=== PATIENT | female | born 1945 | race Caucasian/White ===

== ENCOUNTER 2019-04-04 21:35 | Emergency (ER) | payer OTHER ==
--- OUTSIDE RECORDS SUMMARY | 2019-04-04 21:38 | XMS REPORT | Clinical Summary ---
:1945 Author Organization [facility] Address [address] [place] [address] Care Team Providers Name Role Phone Juan F Shaffer MD Primary Care Provider Allergies Active Allergy Reactions Severity Noted Date Comments Morphine Other (See Comments) High 04/11/2017 CONFUSION / hallucination Medications Medication Sig Dispensed Refills Start Date End Date Status omeprazole (PRILOSEC) Take 40 mg by 0 Active 40 MG capsule mouth daily. tamsulosin (FLOMAX) 0.4 Take 0.4 mg by 0 Active mg Cp24 24 hr capsule mouth daily. losartan-hydroCHLOROthi Take 1 tablet 0 Active azide (HYZAAR) 50-12.5 by mouth mg per tablet daily. mometasone-formoterol Inhale 2 puffs 0 Active (DULERA) 100-5 by mouth via mcg/actuation inhaler inhaler 2 (two) times daily. oxybutynin Take 5 mg by 0 Active (DITROPAN-XL) 5 MG 24 mouth daily. hr tablet levothyroxine Take 75 mcg by 0 Active (SYNTHROID, LEVOTHROID) mouth daily. 75 MCG tablet cholecalciferol Take 1,000 0 Active (VITAMIN D3) 1,000 unit Units by mouth tablet daily. b complex vitamins Take 1 capsule 0 Active capsule by mouth daily. magnesium 30 mg tablet Take 30 mg by 0 Active mouth 2 (two) times daily. aspirin 81 MG EC tablet Take 81 mg by 0 Active mouth daily. DULoxetine (CYMBALTA) Take 1 capsule 30 tablet 0 04/15/2017 04/15/2018 60 MG capsule (60 mg total) by mouth nightly. 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 Leg pain 04/11/2017 Hypertension 04/11/2017 Hypothyroidism 04/11/2017 OAB (overactive bladder) 04/11/2017 Encounters Date Type Specialty Care Team Description 02/23/2019 Hospital Encounter Radiology Kiran Zuluaga Radiculopathy, cervical; MD Hernando Chronic bilateral low back pain with bilateral sciatica 02/23/2019 Outside Orders Central Scheduling Kiran Zuluaga Cervical radiculopathy, acute (Primary Dx); MD Hern[place] Chronic bilateral low back pain with bilateral sciatica 02/23/2019 Outside Orders Central Scheduling Kiran Zuluaga Radiculopathy, cervical (Primary Dx); MD [place] Chronic bilateral low back pain with bilateral sciatica 10/27/2018 Hospital Encounter Radiology Luke Dang Radiculopathy, cervical; MD Jeremy History of fusion of cervical spine 10/27/2018 Outside Orders Central Scheduling Luke Dang Radiculopathy, cervical (Primary Dx); MD Jeremy History of fusion of cervical spine after 04/03/2018 Social History Tobacco Use Types Packs/Day Years Used Date Former Smoker Smokeless Tobacco: Never Used Comments: younger years Alcohol Use Drinks/Week oz/Week Comments No Sex Assigned at Date Recorded Not on file Job Start Date Occupation Industry Not on file Not on file Not on file Travel History Travel Start Travel End No recent travel history available. Last Filed Vital Signs Not on file Plan of Treatment Not on file Implants Implanted Type Area Septic Cleaner Device Shelf Model / Identifier Expiration Serial / Date Lot Imp Scaffold Lg 2169-3 - [id number] [place] Left: ROTATION 05/27/20182168-12 / Implanted: Qty: 1 on 03/20/2018 by Hamilton Perez MD hroscopy Shoulder MEDICAL / [id number] Sut Tape 1.3mm Ndl Tapr Wht Bl -7499 - [id number] [place] Left: ARTHREX 10/27/2022-7499 / Implanted: Qty: 1 on 03/20/2018 by Hamilton Perez MD hroscopy Shoulder / [id number] [place] Knotless 4.5mm Cm-9145 - [id number] [place]/[employer] Left: [facility] MED CM-9145 / Implanted: Qty: 1 on 03/20/2018 by Hamilton Perez MD hroscopy Shoulder / [id number] [place] 3 Sut Qttro 5.5mm Prld Cm-9255x3 - [id number] [place] Left: [facility] MED 05/16/2022 [id number] / Implanted: Qty: 2 on 03/20/2018 by Hamilton Perez MD hroscopy Shoulder / [id number] [place] Knotless 5.5mm Cm-9155 - [id number] [place] Left: [facility] MED CM-9155 / Implanted: Qty: 1 on 03/20/2018 by Hamilton Perez MD hroscopy Shoulder / [id number] [place] Quattro Knotless 2.9mm Cm-9129 - [id number] [place] Left: [facility] 11/27/2021 CM-9129 / Implanted: Qty: 1 on 03/20/2018 by Hamilton Perez MD hroscopy Shoulder / [id number] [employer] Tendon 2504-1 - [id number] [place] Left: ROTATION 2018 2504-1 / Implanted: Qty: 1 on 03/20/2018 by Hamilton Perez MD hroscopy Shoulder MEDICAL / [id number] [place] Bone W/Del Sys 2503-A - [id number] [place] Left: DUARTE & 2018 2503-A / Implanted: Qty: 1 on 03/20/2018 by Hamilton Perez MD hroscopy Shoulder NEPHEW:ENDO / [id number] Bar Tib Janel Ti [id number] - [id number] Joints Right: Knee BIOMET 02/16/2027 [id number] / Implanted: Qty: 1 on 04/11/2017 by Radha Gallo MD / [id number] Tibial Bearing Right: Knee BIOMET 12/22/2021 [id number] / Implanted: Qty: 1 on 04/11/2017 by Radha Gallo MD / [id number] Procedures Procedure Name Priority Date/Time Associated Diagnosis Comments REPORT OF PROCEDURE 02/23/2019 1:52 PM - ENDOSCOPY SCAN CDT XR LUMBAR SPINE Routine 02/23/2019 12:20 PM Radiculopathy, Results for this COMP WITH FLEX&EXT CDT cervical procedure are in Chronic bilateral the results low back pain with section. bilateral sciatica XR CERVICAL SPINE Routine 10/27/2018 3:31 PM Radiculopathy, Results for this COMP W/FLEX & EXT CUSTOM FURRIER cervical procedure are in History of fusion of the results cervical spine section. after 04/03/2018 Results EKG-SCANNED (02/23/2019 1:52 PM CDT) Narrative Performed At XR lumbar spine comp with flex & ext (02/23/2019 12:20 PM CDT) Specimen Narrative Performed At FINAL REPORT [facility] Lumbar Spine - seven total images - including flexion, extension, and oblique views HISTORY: Cervical radiculopathy acute Chronic bilateral low back pain with bilateral sciatica COMPARISON:None. FINDINGS: Stool and bowel gas partially obscures some of the bones. There are 5 non-rib bearing lumbar-type vertebral bodies. Mild right convex curvature. A 7 mm anterolisthesis of L4 on L5, which does not significant a change with flexion-extension. No evidence of a compression deformity or displaced fracture. Discs: Multilevel degenerative changes, most notably severe at L1-2, L2-3, and L5-S1. Facets: Multilevel hypertrophic degenerative changes, most notably severe from L3-4 to L5-S1. Other: Scattered atherosclerotic vascular calcifications. IMPRESSION: 1.No acute radiographic abnormality. 2.Multilevel degenerative changes, most notably at L5-S1. 3.Degenerative anterolisthesis of L4 on L5, without segmental instability. Signed: Rex Stone MD Report Verified Date/Time:02/23/2019 14:06:43 Procedure Note Interface, External Ris In - 02/23/2019 2:08 PM CDT FINAL REPORT Lumbar Spine - seven total images - including flexion, extension, and oblique views HISTORY: Cervical radiculopathy acute Chronic bilateral low back pain with bilateral sciatica COMPARISON: None. FINDINGS: Stool and bowel gas partially obscures some of the bones. There are 5 non-rib bearing lumbar-type vertebral bodies. Mild right convex curvature. A 7 mm anterolisthesis of L4 on L5, which does not significant a change with flexion-extension. No evidence of a compression deformity or displaced fracture. Discs: Multilevel degenerative changes, most notably severe at L1-2, L2-3, and L5-S1. Facets: Multilevel hypertrophic degenerative changes, most notably severe from L3-4 to L5-S1. Other: Scattered atherosclerotic vascular calcifications. IMPRESSION: 1.No acute radiographic abnormality. 2.Multilevel degenerative changes, most notably at L5-S1. 3.Degenerative anterolisthesis of L4 on L5, without segmental instability. Signed: Rex Stone MD Report Verified Date/Time: 02/23/2019 14:06:43 Performing Organization Address City/State/Zipcode Phone Number [facility] XR cervical spine comp with flex and ext (10/27/2018 3:31 PM CUSTOM FURRIER) Specimen Narrative Performed At FINAL REPORT [facility] Cervical Spine, 7 views including flexion, extension, and oblique views HISTORY:cervical radiculopathy, acute history of fusion of cervical spine COMPARISON:None available FINDINGS: Limited sensitivity for detection of subtle fractures and ligamentous abnormalities. Diffusely decreased mineralization of the osseous structures further limits bone detail. On the lateral view, the cervical spine is visualized from the skull base to C7. Mild straightening of the normal cervical lordosis. No acute displaced fracture is identified involving the visualized cervical spine. Osseous fusion from C3 to C7 with associated anterior plate and screw construct. The angle of the oblique projections limits evaluation of the neural foramina. Disc Spaces and Uncovertebral Joints: Otherwise, unremarkable. Facets: Partially visualized facet arthrosis at C7-T1, likely severe. IMPRESSION: 1.No acute radiographic abnormality. 2.Osseous fusion from C3 to C7, no hardware loosening or failure. Signed: Rex Stone MD Report Verified Date/Time:10/27/2018 16:26:17 Procedure Note Interface, External Ris In - 10/27/2018 4:28 PM CUSTOM FURRIER FINAL REPORT Cervical Spine, 7 views including flexion, extension, and oblique views HISTORY: cervical radiculopathy, acute history of fusion of cervical spine COMPARISON: None available FINDINGS: Limited sensitivity for detection of subtle fractures and ligamentous abnormalities. Diffusely decreased mineralization of the osseous structures further limits bone detail. On the lateral view, the cervical spine is visualized from the skull base to C7. Mild straightening of the normal cervical lordosis. No acute displaced fracture is identified involving the visualized cervical spine. Osseous fusion from C3 to C7 with associated anterior plate and screw construct. The angle of the oblique projections limits evaluation of the neural foramina. Disc Spaces and Uncovertebral Joints: Otherwise, unremarkable. Facets: Partially visualized facet arthrosis at C7-T1, likely severe. IMPRESSION: 1. No acute radiographic abnormality. 2. Osseous fusion from C3 to C7, no hardware loosening or failure. Signed: Rex Stone MD Report Verified Date/Time: 10/27/2018 16:26:17 Performing Organization Address City/State/Zipcode Phone Number GE RIS after 04/03/2018 Insurance Payer Benefit Plan / Subscriber ID Type Phone Address Group MEDICARE MEDICARE A B xxxxxxxxxxx Medicare AETNA - AETNA MEDICARE xxxxxxxx [facility] Contracted [phone] MEDICARE MGD HMO POS 2 [id number] [place] [address] [facility] GENERIC MEDICARE xxxxxxxxx Medigap SUPPLEMENT/ANNEL SUPPLEMENT VIDUAL [facility] [employer] xxxxxxxxx Medigap SUPPLEMENT/ANNEL VIDUAL (Home) [place] [address] Advance Directives For more information, please contact:[address] [phone] Code Status Date Activated Date Inactivated Comments Full Code 03/20/2018 8:16 AM 03/20/2018 8:26 PM This code status was determined by: Patient Full Code 04/11/2017 3:04 AM 04/15/2017 6:16 PM This code status was determined by: Patient
--- OUTSIDE RECORDS SUMMARY | 2019-04-04 21:39 | XMS REPORT | CCD ---
:1945 Author Organization [facility] Care Team Providers Name Role Phone Meng Koch Referring Provider Allergies, Adverse Reactions, Alerts Substance Reaction Status Morphine Sulfate Active Problem List Condition Effective Dates Status Acid reflux Resolved Anxiety depression Resolved COPD Resolved Emphysema Resolved High cholesterol Resolved Hypertension Resolved Neck pain Resolved Poor circulation Resolved Urinary disorder Resolved Weakness of limb Resolved Medications Medication Instructions Start Date End Date Status Cepastat 1 lozenge, Route: MUCOUS 07/21/2013 07/22/2013 Discontinued MEM, PRN, Drug form: CHRIS, PRN Sore Throat, Start date: 07/21/13 15:37:00, Duration: 30 day, Stop date: 08/20/13 15:36:00 dexamethasone 4 mg, 1 mL, Route: IVP, 07/21/2013 07/21/2013 Completed Drug form: INJ, ONCE, Start date: 07/21/13 14:00:00, Stop date: 07/21/13 14:00:00 Lidoderm 5% topical film Substitution Allowed 07/14/2013 Ordered (patch) Cymbalta 30 mg oral 30 mg, 1 cap, PO, Daily, 07/14/2013 Ordered delayed release capsule Substitution Allowed losartan 100 mg oral 100 mg, 1 tab, PO, Daily, 07/14/2013 Ordered tablet Substitution Allowed VESIcare 5 mg oral tablet 5 mg, 1 tab, PO, Daily, 07/14/2013 Ordered Substitution Allowed levothyroxine 75 mcg 75 microgram, 1 tab, PO, 07/14/2013 Ordered (0.075 mg) oral tablet Daily, Substitution Allowed metFORmin 500 mg oral 1,000 mg, 2 tab, PO, 07/14/2013 Ordered tablet Substitution Allowed hydrALAZINE + Sodium 20 mg, 1 mL, Route: IV, 07/21/2013 07/22/2013 Discontinued Chloride 0.9% IV 50 mL Drug form: INJ, Q4H, Dosing Weight 91.42, kg, PRN Elevated BP, Start date: 07/21/13 16:22:00, Duration: 30 day, Stop date: 08/20/13 16:21:00, PRN for systolic BP greater than 180 or diastolic greater than 100mmhg. flumazenil 0.2 mg, 2 mL, Route: IVP, 07/21/2013 07/22/2013 Discontinued Drug form: INJ, PRN, Dosing Weight 91.42, kg, PRN Benzodiazepine Reversal, Initial dose, Start date: 07/21/13 11:14:00, Duration: 30 day, Stop date: 08/20/13 11:13:00 hydromorphone 0.5 mg, 0.5 mL, Route: 07/21/2013 07/22/2013 Discontinued IVP, Drug form: INJ, Q5Min, Dosing Weight 91.42, kg, PRN Pain Score 7-10, Start date: 07/21/13 11:14:00, Duration: 5 doses or times, Stop date: Limited # of times naloxone 0.04 mg, 0.1 mL, Route: 07/21/2013 07/22/2013 Discontinued IVP, Drug form: INJ, Q2MIN, Dosing Weight 91.42, kg, PRN Narcotic Reversal, Start date: 07/21/13 11:14:00, Duration: 8 doses or times, Stop date: Limited # of times ondansetron 4 mg, 2 mL, Route: IVP, 07/21/2013 07/22/2013 Discontinued Drug form: INJ, ONCE, Dosing Weight 91.42, kg, PRN Nausea & Vomiting, Start date: 07/21/13 11:14:00 acetaminophen-10 mg/mL 1,000 mg, Route: IV, Drug form: INJ, ONCE, Dosing Weight 91.42, kg, PRN Pain Score 4-6, Start date: 07/21/13 11:14:00, Duration: 1 doses or times, Stop date: Limited # of times, Infuse over 15 minutes (for patient weight 50 kg or greater) 07/21/2013 07/21/2013 Completed INTRAVENOUS solution Infuse over 15 minutes (for patient weight 50 kg or greater) dexamethasone 4 mg, 1 tab, Route: PO, 07/21/2013 07/21/2013 Completed Drug form: TAB, ONCE, Start date: 07/21/13 14:00:00, Stop date: 07/21/13 14:00:00 Robaxin-750 oral tablet 750 mg, 1 tab, PO, QID, 07/22/2013 Ordered PRN, 40 tab, As needed for muscle spasms, Substitution Allowed, TAB influenza virus vaccine, 0.5 mL, Route: IM, Drug 07/14/2013 07/22/2013 Discontinued inactivated Form: SUSP, ONCALL, Start date: 07/14/13 14:52:32, Stop date: 08/13/13 14:47:32 solifenacin 5 mg, Route: PO, Drug 07/22/2013 07/21/2013 Deleted form: TAB, Daily, Dosing Weight 91.42, kg, Start date: 07/22/13 9:00:00, Duration: 30 day, Stop date: 08/20/13 9:00:00 simvastatin 20 mg, 1 tab, Route: PO, 07/21/2013 07/22/2013 Discontinued Drug form: TAB, Bedtime, Dosing Weight 91.42, kg, Start date: 07/21/13 21:00:00, Duration: 30 day, Stop date: 08/19/13 21:00:00 losartan 100 mg, 2 tab, Route: PO, 07/22/2013 07/22/2013 Discontinued Drug form: TAB, Daily, Dosing Weight 91.42, kg, Start date: 07/22/13 9:00:00, Duration: 30 day, Stop date: 08/20/13 9:00:00 levothyroxine 75 microgram, 1 tab, 07/22/2013 07/22/2013 Discontinued Route: PO, Drug form: TAB, Before Breakfast, Dosing Weight 91.42, kg, Start date: 07/22/13 7:30:00, Duration: 30 day, Stop date: 08/20/13 7:30:00 gabapentin 600 mg oral 600 mg, 2 cap, Route: PO, 07/21/2013 07/22/2013 Discontinued tablet Drug form: CAP, BID, Dosing Weight 91.42, kg, Start date: 07/21/13 17:00:00, Duration: 30 day, Stop date: 08/20/13 9:00:00 Cymbalta 30 mg, 1 cap, Route: PO, 07/22/2013 07/22/2013 Discontinued Drug form: DRC, Daily, Dosing Weight 91.42, kg, Start date: 07/22/13 9:00:00, Duration: 30 day, Stop date: 08/20/13 9:00:00 glucagon 1 mg, Route: IM, Drug 07/21/2013 07/22/2013 Discontinued form: PDR/INJ, PRN, Dosing Weight 91.42, kg, PRN Blood Glucose Results, Start date: 07/21/13 16:05:00, Duration: 30 day, Stop date: 08/20/13 16:04:00 Dextrose 50% Syringe 25 gm, 50 mL, Route: IVP, 07/21/2013 07/22/2013 Discontinued Drug Form: INJ, Dosing Weight 91.42, kg, PRN, PRN Blood Glucose Results, Start date: 07/21/13 16:05:00, Duration: 30 day, Stop date: 08/20/13 16:04:00 Dextrose 50% Syringe 12.5 gm, 25 mL, Route: 07/21/2013 07/22/2013 Discontinued IVP, Drug Form: INJ, Dosing Weight 91.42, kg, PRN, PRN Blood Glucose Results, Start date: 07/21/13 16:05:00, Duration: 30 day, Stop date: 08/20/13 16:04:00 insulin aspart 8 unit, 0.08 mL, Route: 07/21/2013 07/22/2013 Discontinued SUB-Q, Drug form: SOLN, TID-Before Meals, Dosing Weight 91.42, kg, PRN Blood Glucose Results, Start date: 07/21/13 16:05:00, Duration: 30 day, Stop date: 08/20/13 16:04:00 insulin aspart 10 unit, 0.1 mL, Route: 07/21/2013 07/22/2013 Discontinued SUB-Q, Drug form: SOLN, TID-Before Meals, Dosing Weight 91.42, kg, PRN Blood Glucose Results, Start date: 07/21/13 16:05:00, Duration: 30 day, Stop date: 08/20/13 16:04:00 insulin aspart 6 unit, 0.06 mL, Route: 07/21/2013 07/22/2013 Discontinued SUB-Q, Drug form: SOLN, TID-Before Meals, Dosing Weight 91.42, kg, PRN Blood Glucose Results, Start date: 07/21/13 16:05:00, Duration: 30 day, Stop date: 08/20/13 16:04:00 insulin aspart 2 unit, 0.02 mL, Route: 07/21/2013 07/22/2013 Discontinued SUB-Q, Drug form: SOLN, TID-Before Meals, Dosing Weight 91.42, kg, PRN Blood Glucose Results, Start date: 07/21/13 16:05:00, Duration: 30 day, Stop date: 08/20/13 16:04:00 insulin aspart 4 unit, 0.04 mL, Route: 07/21/2013 07/22/2013 Discontinued SUB-Q, Drug form: SOLN, TID-Before Meals, Dosing Weight 91.42, kg, PRN Blood Glucose Results, Start date: 07/21/13 16:05:00, Duration: 30 day, Stop date: 08/20/13 16:04:00 aspirin 81 mg tablet, 81 mg, 1 tab, PO, Daily, 07/14/2013 Ordered enteric coated 0 tab, Substitution Allowed, ECTAB Colace 100 mg oral 100 mg, 1 cap, Route: PO, 07/21/2013 07/21/2013 Deleted capsule BID, Dosing Weight 91.42, kg, Start date: 07/21/13 17:00:00, Duration: 30 day, Stop date: 08/20/13 9:00:00 simvastatin 20 mg oral 20 mg, 1 tab, PO, 07/14/2013 Ordered tablet Bedtime, 30 tab, Substitution Allowed omeprazole PO, Daily, Substitution 07/14/2013 Ordered Allowed gabapentin 600 mg oral 600 mg, 1 tab, PO, BID, 07/14/2013 Ordered tablet Substitution Allowed Cepacol Lozenge 1 lozenge, Route: PO, 07/21/2013 07/21/2013 Deleted PRN, PRN Sore Throat, Start date: 07/21/13 11:08:00, Duration: 30 day, Stop date: 08/20/13 11:07:00 Maalox Advanced Regular 30 mL, Route: PO, Drug 07/21/2013 07/22/2013 Discontinued Strength SUSP Form: SUSP, Dosing Weight 91.42, kg, Q4H, PRN Indigestion, Start date: 07/21/13 11:08:00, Duration: 30 day, Stop date: 08/20/13 11:07:00 Phenergan 25 mg, 1 mL, Route: IM, 07/21/2013 07/22/2013 Discontinued Drug form: INJ, Q4H, Dosing Weight 91.42, kg, PRN See Nurse's Notes, Start date: 07/21/13 11:08:00, Duration: 30 day, Stop date: 08/20/13 11:07:00, pain give with meperidine Ultram 50 mg oral tablet 100 mg, 2 tab, Route: PO, 07/21/2013 07/22/2013 Discontinued Drug form: TAB, Q6H, Dosing Weight 91.42, kg, PRN Pain, Start date: 07/21/13 11:08:00, Duration: 30 day, Stop date: 08/20/13 11:07:00 acetaminophen-oxycodone 2 tab, Route: PO, Drug 07/21/2013 07/22/2013 Discontinued 325 mg-5 mg oral tablet Form: TAB, Dosing Weight 91.42, kg, Q4H, PRN Pain, Start date: 07/21/13 11:08:00, Duration: 30 day, Stop date: 08/20/13 11:07:00 ketorolac 30 mg, 1 mL, Route: IV, 07/21/2013 07/22/2013 Discontinued Drug form: INJ, Q6H, Dosing Weight 91.42, kg, Start date: 07/21/13 12:00:00, Duration: 4 day, Stop date: 07/25/13 6:00:00 Ultram 50 mg oral tablet 50 mg, 1 tab, Route: PO, 07/21/2013 07/22/2013 Discontinued Drug form: TAB, Q6H, Dosing Weight 91.42, kg, PRN Pain, Start date: 07/21/13 11:08:00, Duration: 30 day, Stop date: 08/20/13 11:07:00 meperidine 100 mg, 2 mL, Route: IM, 07/21/2013 07/22/2013 Discontinued Drug form: INJ, Q4H, Dosing Weight 91.42, kg, PRN Pain, Start date: 07/21/13 11:08:00, Duration: 4 day, Stop date: 07/25/13 11:07:00 Zofran 4 mg, 2 mL, Route: IV, 07/21/2013 07/22/2013 Discontinued Drug form: INJ, Q6H, Dosing Weight 91.42, kg, PRN Nausea & Vomiting, Start date: 07/21/13 11:08:00, Duration: 30 day, Stop date: 08/20/13 11:07:00, nausea/vomiting meperidine 75 mg, 1.5 mL, Route: IM, 07/21/2013 07/22/2013 Discontinued Drug form: INJ, Q4H, Dosing Weight 91.42, kg, PRN Pain, Start date: 07/21/13 11:08:00, Duration: 4 day, Stop date: 07/25/13 11:07:00 ketorolac 15 mg, 1 mL, Route: IV, 07/21/2013 07/22/2013 Discontinued Drug form: INJ, Q6H, Dosing Weight 91.42, kg, Start date: 07/21/13 12:00:00, Duration: 4 day, Stop date: 07/25/13 6:00:00 docusate 100 mg, 1 cap, Route: PO, 07/21/2013 07/22/2013 Discontinued Drug form: CAP, BID, Dosing Weight 91.42, kg, Start date: 07/21/13 17:00:00, Duration: 30 day, Stop date: 08/20/13 9:00:00 temazepam 30 mg, 1 cap, Route: PO, 07/21/2013 07/22/2013 Discontinued Drug form: CAP, Bedtime, Dosing Weight 91.42, kg, PRN Sleep, Start date: 07/21/13 11:08:00, Duration: 30 day, Stop date: 08/20/13 11:07:00 bisacodyl 10 mg, 2 tab, Route: PO, 07/21/2013 07/22/2013 Discontinued Drug form: ECTAB, Daily, Dosing Weight 91.42, kg, PRN Constipation, Start date: 07/21/13 11:08:00, Duration: 30 day, Stop date: 08/20/13 11:07:00 methocarbamol 750 mg, 1 tab, Route: PO, 07/21/2013 07/22/2013 Discontinued Drug form: TAB, Q6H, Dosing Weight 91.42, kg, PRN Muscle Spasms, Start date: 07/21/13 11:08:00, Duration: 30 day, Stop date: 08/20/13 11:07:00 bisacodyl 10 mg, 1 supp, Route: SD, 07/21/2013 07/22/2013 Discontinued Drug form: SUPP, Daily, Dosing Weight 91.42, kg, PRN as needed for constipation, Start date: 07/21/13 11:08:00, Duration: 30 day, Stop date: 08/20/13 11:07:00 dexamethasone 4 mg, Route: IVP, Q6H, 07/21/2013 07/21/2013 Deleted Dosing Weight 91.42, kg, Start date: 07/21/13 12:00:00, Duration: 30 day, Stop date: 08/20/13 6:00:00 methocarbamol + Sodium 750 mg, 7.5 mL, Route: 07/21/2013 07/22/2013 Discontinued Chloride 0.9% IV 100 mL IV, Drug form: INJ, Q6H, Dosing Weight 91.42, kg, PRN Muscle Spasms, Start date: 07/21/13 11:08:00, Duration: 30 day, Stop date: 08/20/13 11:07:00 cefazolin (SCIP) 2 gm, 100 mL, Route: 07/21/2013 07/21/2013 Discontinued IVPB, Drug form: INJ, ABXQ8H, Dosing Weight 91.42, kg, Start date: 07/21/13 15:30:00, Duration: 3 doses or times, Stop date: 07/22/13 7:30:00 dexamethasone 4 mg, Route: PO, Drug 07/21/2013 07/21/2013 Deleted form: TAB, Q6H, Dosing Weight 91.42, kg, Start date: 07/21/13 12:00:00, Duration: 30 day, Stop date: 08/20/13 6:00:00 [place] 7.5/325 oral tablet 1 tab, Route: PO, Drug 07/21/2013 07/22/2013 Discontinued Form: TAB, Dosing Weight 91.42, kg, Q4H, PRN Pain, Start date: 07/21/13 11:08:00, Duration: 30 day, Stop date: 08/20/13 11:07:00 1/2NS + KCL 20mEq/L 1,000 mL, Rate: 75 ml/hr, 07/21/2013 07/22/2013 Discontinued 1000ml (Premix) 1,000 mL Infuse over: 13.3 hr, Route: IV, Dosing Weight 91.42 kg, Total Volume: 1,000, Start date: 07/21/13 11:08:00, Duration: 30 day, Stop date: 08/20/13 11:07:00 [place] 7.5/325 oral tablet 2 tab, Route: PO, Drug 07/21/2013 07/22/2013 Discontinued Form: TAB, Dosing Weight 91.42, kg, Q4H, PRN Pain, Start date: 07/21/13 11:08:00, Duration: 30 day, Stop date: 08/20/13 11:07:00 acetaminophen 650 mg, 2 tab, Route: PO, 07/21/2013 07/22/2013 Discontinued Drug form: TAB, Q4H, Dosing Weight 91.42, kg, PRN Pain, Start date: 07/21/13 11:08:00, Duration: 30 day, Stop date: 08/20/13 11:07:00 acetaminophen-oxycodone 1 tab, Route: PO, Drug 07/21/2013 07/22/2013 Discontinued 325 mg-5 mg oral tablet Form: TAB, Dosing Weight 91.42, kg, Q4H, PRN Pain, Start date: 07/21/13 11:08:00, Duration: 30 day, Stop date: 08/20/13 11:07:00 cefazolin (SCIP) 1 gm, Route: IVPB, Drug 07/21/2013 07/21/2013 Deleted form: INJ, Q8H, Dosing Weight 91.42, kg, Start date: 07/21/13 16:00:00, Duration: 1 doses or times, Stop date: 07/21/13 16:00:00 Lortab 7.5/500 oral 1 tab, PO, Q6H, PRN, 40 07/22/2013 Ordered tablet tab, as needed for pain, Substitution Allowed, Maintenance carvedilol 6.25 mg oral Substitution Allowed 07/14/2013 Ordered tablet Colace 100 mg oral 100 mg, 1 cap, PO, BID, 07/22/2013 Ordered capsule 20 cap, Substitution Allowed, CAP Detrol LA 4 mg, 1 cap, Route: PO, 07/22/2013 07/22/2013 Discontinued Drug form: CAP, Daily, Start date: 07/22/13 9:00:00, Duration: 30 day, Stop date: 08/20/13 9:00:00 carvedilol 6.25 mg, 1 tab, Route: 07/21/2013 07/22/2013 Discontinued PO, Drug form: TAB, Q12H, Dosing Weight 91.42, kg, Start date: 07/21/13 21:00:00, Duration: 30 day, Stop date: 08/20/13 9:00:00 Vital Signs Most recent to oldest 1 2 3 [Reference Range]: Height 175.26 cm (07/14/2013 12:54:00) Temperature Oral 97.4 DegF 97.9 DegF 97.5 DegF [96.4-99.1 DegF] (07/22/2013 08:00:00) (07/22/2013 05:07:00) (07/22/2013 00: 00:00) Systolic Blood Pressure 138 mmHg 130 mmHg 148 mmHg [90-140 mmHg] (07/22/2013 08:00:00) (07/22/2013 05:07:00) *HI* (07/22/2013 00:00:00) Diastolic Blood Pressure 63 mmHg 68 mmHg 69 mmHg [60-90 mmHg] (07/22/2013 08:00:00) (07/22/2013 05:07:00) (07/22/2013 00:00: 00) Respiratory Rate [14-20 16 BRMIN 18 BRMIN 18 BRMIN BRMIN] (07/22/2013 08:00:00) (07/22/2013 05:07:00) (07/22/2013 00:00:00) Peripheral Pulse Rate 64 bpm 83 bpm 87 bpm [60-100 bpm] (07/22/2013 08:00:00) (07/22/2013 05:07:00) (07/22/2013 00:00: 00) Weight 91.42 kg (07/14/2013 12:54:00) Results BEDSIDE GLUCOSE TESTING Most recent to oldest 1 2 3 [Reference Range]: Gluc POC [70-99 mg/dL] 167 mg/dL 1 221 mg/dL 2 194 mg/dL 3 *HI* *HI* *HI* (07/22/2013 06:25:00) (07/21/2013 21:50:00) (07/21/2013 16:09:00) Gluc POC Comment 1 Sliding Scale Assess Patient Verify w/Lab *NA* *NA* *NA* (07/22/2013 06:25:00) (07/21/2013 21:50:00) (07/21/2013 16:09:00) Gluc POC Comment 2 Notify RN/MD *NA* (07/22/2013 06:25:00) 1Interpretive Data: Upper Reportable Limit: 200 mg/dL.2Interpretive Data: Upper Reportable Limit: 200 mg/dL.3Interpretive Data: Upper Reportable Limit: 200 mg/dL.CHEMISTRY Most recent to oldest [Reference 1 2 3 Range]: Sodium Lvl [135-145 mEq/L] 143 mEq/L 140 mEq/L (07/22/2013 04:40:00) (07/21/2013 18:30:19) Potassium Lvl [3.5-5.1 mEq/L] 4.1 mEq/L 4.3 mEq/L (07/22/2013 04:40:00) (07/21/2013 18:30:19) Chloride Lvl [95-109 mEq/L] 105 mEq/L 103 mEq/L (07/22/2013 04:40:00) (07/21/2013 18:30:19) CO2 [24-32 mEq/L] 25 mEq/L 26 mEq/L (07/22/2013 04:40:00) (07/21/2013 18:30:19) AGAP [10.0-20.0 mEq/L] 17.1 mEq/L 15.3 mEq/L (07/22/2013 04:40:00) (07/21/2013 18:30:19) Creatinine Lvl [0.5-1.4 mg/dL] 0.8 mg/dL 0.9 mg/dL (07/22/2013 04:40:00) (07/21/2013 18:30:19) eGFR 75 mL/min/1.73m2 4 65 mL/min/1.73m2 5 *NA* *NA* (07/22/2013 04:40:00) (07/21/2013 18:30:19) BUN [7-22 mg/dL] 21 mg/dL 18 mg/dL (07/22/2013 04:40:00) (07/21/2013 18:30:19) Glucose Lvl [70-99 mg/dL] 126 mg/dL 6 178 mg/dL 7 *HI* *HI* (07/22/2013 04:40:00) (07/21/2013 18:30:19) Calcium Lvl [8.5-10.5 mg/dL] 8.8 mg/dL 8.4 mg/dL (07/22/2013 04:40:00) *LOW* (07/21/2013 18:30:19) 4Result Comment: The eGFR is calculated using the CKD-EPI formula. In most young , healthy individualsthe eGFR will be >90 mL/min/1.73m2. The eGFR declines with age. An eGFR of 60-89 may be normal in some populations, particularly the elderly, for whom the CKD-EPI formula has not been extensively validated. Use of the eGFR is not recommended in the following populations: Individuals with unstable creatinine concentrations, including patients and those with serious co-morbid conditions. Patients with extremes in muscle mass or diet. The data above are obtained from the National Kid[employer] Education Program ( [employer]) which additionally recommends that when the eGFR is used in patients with extremes of body mass index for purposesof drug dosing, the eGFR should be multiplied by the estimated BMI.5Result Comment: The eGFR is calculated using the CKD-EPI formula. In most young, healthy individualsthe eGFR will be >90 mL/ min/1.73m2. The eGFR declines with age. An eGFR of 60-89 may be normal in some populations, particularly the elderly, for whom the CKD-EPI formula has not been extensively validated. Use of the eGFR is not recommended in the following populations: Individuals with unstable creatinine concentrations, including patients and those with serious co-morbid conditions. Patients with extremes in muscle mass or diet. The data above are obtained from the National [employer] Education Program ( [employer]) which additionally recommends that when the eGFR is used in patients with extremes of body mass index for purposesof drug dosing, the eGFR should be multiplied by the estimated BMI.6Interpretive Data: Adult reference range values reflect the clinical guidelines of the [place] [employer].7Interpretive Data: Adult reference range values reflect the clinical guidelines of the [employer] [place] [employer]. Procedures Procedures Date Related Diagnosis Abdominal hysterectomy Appendectomy CEIOL - Cataract extraction and insertion of intraocular lens Cholecystectomy Knee replacement
--- OUTSIDE RECORDS SUMMARY | 2019-04-04 21:39 | XMS REPORT | Continuity of Care Document ---
:1945 Author Organization Interface Problems Problem Status Onset Classification Date Comments Source Date Reported NECK PAIN Active 06/16/20 [facility] 13 Acid reflux Resolved Problem 07/24/2013 [facility] Anxiety Resolved Problem 07/24/2013 [facility] depression COPD Resolved Problem 07/24/2013 [facility] Emphysema Resolved Problem 07/24/2013 [facility] High Resolved Problem 07/24/2013 [facility] cholesterol Hypertension Resolved Problem 07/24/2013 [facility] Neck pain Resolved Problem 07/24/2013 [facility] Poor Resolved Problem 07/24/2013 [facility] circulation Urinary Resolved Problem 07/24/2013 [facility] disorder Weakness of Resolved Problem 07/24/2013 [facility] limb CERVICAL SPINAL Active [facility] STENOSIS CERV DISC DIS W Active [facility] MYELOPAT Medications Medication Details Route Status Patient Ordering Order Source Instructions Provider Date Colace 100 mg 100 mg, 1 cap, PO Active Amin oral capsule PO, BID, 20 cap, 2012 Substitution Allowed, CAP Robaxin-750 750 mg, 1 tab, PO Active Amin oral tablet PO, QID, PRN, 40 2012 [facility] tab, As needed for muscle spasms, Substitution Allowed, TAB Lortab 7.5/500 1 tab, PO, Q6H, PO Active Amin oral tablet PRN, 40 tab, as 2012 needed for pain, Substitution Allowed, Maintenance solifenacin 5 mg, Route: PO, PO No Bindal Drug form: TAB, Longer 2012 [facility] Daily, Dosing Active Weight 91.42, kg, Start date: 07/22/13 9:00:00, Duration: 30 day, Stop date: 08/20/13 9:00:00 losartan 100 mg, 2 tab, PO No Bindal Route: PO, Drug Longer 2012 [facility] form: TAB, Active Daily, Dosing Weight 91.42, kg, Start date: 07/22/13 9:00:00, Duration: 30 day, Stop date: 08/20/13 9:00:00 Cymbalta 30 mg, 1 cap, PO No Bindal Route: PO, Drug 2012 [facility] form: DRC, Active Daily, Dosing Weight 91.42, kg, Start date: 07/22/13 9:00:00, Duration: 30 day, Stop date: 08/20/13 9:00:00 Detrol LA 4 mg, 1 cap, PO No Bindal Route: PO, Drug 2012 [facility] form: CAP, Active Daily, Start date: 07/22/13 9:00:00, Duration: 30 day, Stop date: 08/20/13 9:00:00 levothyroxine 75 microgram, 1 PO No Bindal tab, Route: PO, 2012 [facility] Drug form: TAB, Active Before Breakfast, Dosing Weight 91.42, kg, Start date: 07/22/13 7:30:00, Duration: 30 day, Stop date: 08/20/13 7:30:00 simvastatin 20 mg, 1 tab, PO No Bindal Route: PO, Drug 2012 [facility] form: TAB, Active Bedtime, Dosing Weight 91.42, kg, Start date: 07/21/13 21:00:00, Duration: 30 day, Stop date: 08/19/13 21:00:00 carvedilol 6.25 mg, 1 tab, PO No Gordon Route: PO, Drug 2012 [facility] form: TAB, Q12H, Active Dosing Weight 91.42, kg, Start date: 07/21/13 21:00:00, Duration: 30 day, Stop date: 08/20/13 9:00:00 gabapentin 600 600 mg, 2 cap, PO No Bindal mg oral tablet Route: PO, Drug 2012 [facility] form: CAP, BID, Active Dosing Weight 91.42, kg, Start date: 07/21/13 17:00:00, Duration: 30 day, Stop date: 08/20/13 9:00:00 Colace 100 mg 100 mg, 1 cap, PO No Gordon oral capsule Route: PO, BID, 2012 [facility] Dosing Weight Active 91.42, kg, Start date: 07/21/13 17:00:00, Duration: 30 day, Stop date: 08/20/13 9:00:00 docusate 100 mg, 1 cap, PO No Bindal Route: PO, Drug 2012 [facility] form: CAP, BID, Active Dosing Weight 91.42, kg, Start date: 07/21/13 17:00:00, Duration: 30 day, Stop date: 08/20/13 9:00:00 hydrALAZINE + 20 mg, 1 mL, IV No Gordon Sodium Chloride Route: IV, Drug 2012 [facility] 0.9% IV 50 mL form: INJ, Q4H, Active Dosing Weight 91.42, kg, PRN Elevated BP, Start date: 07/21/13 16:22:00, Duration: 30 day, Stop date: 08/20/13 16:21:00, PRN for systolic BP greater than 180 or diastolic greater than 100mmhg. glucagon 1 mg, Route: IM, IM No Gordon Drug form: 2012 [facility] PDR/INJ, PRN, Active Dosing Weight 91.42, kg, PRN Blood Glucose Results, Start date: 07/21/13 16:05:00, Duration: 30 day, Stop date: 08/20/13 16:04:00 Dextrose 50% 25 gm, 50 mL, IVP No Gordon Syringe Route: IVP, Drug 2012 [facility] Form: INJ, Active Dosing Weight 91.42, kg, PRN, PRN Blood Glucose Results, Start date: 07/21/13 16:05:00, Duration: 30 day, Stop date: 08/20/13 16:04:00 insulin aspart 8 unit, 0.08 mL, SUB-Q No Gordon Route: SUB-Q, Longer 2012 [facility] Drug form: SOLN, Active TID-Before Meals, Dosing Weight 91.42, kg, PRN Blood Glucose Results, Start date: 07/21/13 16:05:00, Duration: 30 day, Stop date: 08/20/13 16:04:00 cefazolin 1 gm, Route: IVPB No Bindal (SCIP) IVPB, Drug form: 2012 [facility] INJ, Q8H, Dosing Active Weight 91.42, kg, Start date: 07/21/13 16:00:00, Duration: 1 doses or times, Stop date: 07/21/13 16:00:00 Cepastat 1 lozenge, MUCOUS No Bindal Route: MUCOUS MEM Longer 2012 [facility] MEM, PRN, Drug Active form: CHRIS, PRN Sore Throat, Start date: 07/21/13 15:37:00, Duration: 30 day, Stop date: 08/20/13 15:36:00 cefazolin 2 gm, 100 mL, IVPB No Bindal (SCIP) Route: IVPB, Longer 2012 [facility] Drug form: INJ, Active [id number], Dosing Weight 91.42, kg, Start date: 07/21/13 15:30:00, Duration: 3 doses or times, Stop date: 07/22/13 7:30:00 dexamethasone 4 mg, 1 mL, IVP No Bindal Route: IVP, Drug 2012 [facility] form: INJ, ONCE, Active Start date: 07/21/13 14:00:00, Stop date: 07/21/13 14:00:00 ketorolac 30 mg, 1 mL, IV No Bindal Route: IV, Drug 2012 [facility] form: INJ, Q6H, Active Dosing Weight 91.42, kg, Start date: 07/21/13 12:00:00, Duration: 4 day, Stop date: 07/25/13 6:00:00 dexamethasone 4 mg, Route: IVP No Bindal IVP, Q6H, Dosing Longer 2012 [facility] Weight 91.42, Active kg, Start date: 07/21/13 12:00:00, Duration: 30 day, Stop date: 08/20/13 6:00:00 flumazenil 0.2 mg, 2 mL, IVP No Kyle Route: IVP, Drug 2012 [facility] form: INJ, PRN, Active Dosing Weight 91.42, kg, PRN Benzodiazepine Reversal, Initial dose, Start date: 07/21/13 11:14:00, Duration: 30 day, Stop date: 08/20/13 11:13:00 hydromorphone 0.5 mg, 0.5 mL, IVP No Kyle Route: IVP, Drug Longer 2012 [facility] form: INJ, Active Q5Min, Dosing Weight 91.42, kg, PRN Pain Score 7-10, Start date: 07/21/13 11:14:00, Duration: 5 doses or times, Stop date: Limited # of times naloxone 0.04 mg, 0.1 mL, IVP [facility] Route: IVP, Drug Longer 2012 [facility] form: INJ, Active Q2MIN, Dosing Weight 91.42, kg, PRN Narcotic Reversal, Start date: 07/21/13 11:14:00, Duration: 8 doses or times, Stop date: Limited # of times ondansetron 4 mg, 2 mL, IVP [facility] Route: IVP, Drug Longer 2012 [facility] form: INJ, ONCE, Active Dosing Weight 91.42, kg, PRN Nausea & Vomiting, Start date: 07/21/13 11:14:00 acetaminophen-1 1,000 mg, Route: IV [facility] 0 mg/mL IV, Drug form: 2012 [facility] INTRAVENOUS INJ, ONCE, Active solution Dosing Weight 91.42, kg, PRN Pain Score 4-6, Start date: 07/21/13 11:14:00, Duration: 1 doses or times, Stop date: Limited # of times, Infuse over 15 minutes (for patient weight 50 kg or greater)Infuse over 15 minutes (for patient weight 50 kg or greater) Cepacol Lozenge 1 lozenge, PO No Bindal Route: PO, PRN, Longer 2012 [facility] PRN Sore Throat, Active Start date: 07/21/13 11:08:00, Duration: 30 day, Stop date: 08/20/13 11:07:00 Maalox Advanced 30 mL, Route: PO No Bindal Regular PO, Drug Form: 2012 [facility] Strength SUSP SUSP, Dosing Active Weight 91.42, kg, Q4H, PRN Indigestion, Start date: 07/21/13 11:08:00, Duration: 30 day, Stop date: 08/20/13 11:07:00 Phenergan 25 mg, 1 mL, IM No Bindal Route: IM, Drug Longer 2012 [facility] form: INJ, Q4H, Active Dosing Weight 91.42, kg, PRN See Nurse's Notes, Start date: 07/21/13 11:08:00, Duration: 30 day, Stop date: 08/20/13 11:07:00, pain give with meperidine Ultram 50 mg 100 mg, 2 tab, PO No Bindal oral tablet Route: PO, Drug 2012 [facility] form: TAB, Q6H, Active Dosing Weight 91.42, kg, PRN Pain, Start date: 07/21/13 11:08:00, Duration: 30 day, Stop date: 08/20/13 11:07:00 acetaminophen-o 2 tab, Route: PO No Bindal xycodone 325 PO, Drug Form: 2012 [facility] mg-5 mg oral TAB, Dosing Active tablet Weight 91.42, kg, Q4H, PRN Pain, Start date: 07/21/13 11:08:00, Duration: 30 day, Stop date: 08/20/13 11:07:00 meperidine 100 mg, 2 mL, IM No Bindal Route: IM, Drug 2012 [facility] form: INJ, Q4H, Active Dosing Weight 91.42, kg, PRN Pain, Start date: 07/21/13 11:08:00, Duration: 4 day, Stop date: 07/25/13 11:07:00 Zofran 4 mg, 2 mL, IV No Bindal Route: IV, Drug 2012 [facility] form: INJ, Q6H, Active Dosing Weight 91.42, kg, PRN Nausea & Vomiting, Start date: 07/21/13 11:08:00, Duration: 30 day, Stop date: 08/20/13 11:07:00, nausea/vomiting temazepam 30 mg, 1 cap, PO No Bindal Route: PO, Drug 2012 [facility] form: CAP, Active Bedtime, Dosing Weight 91.42, kg, PRN Sleep, Start date: 07/21/13 11:08:00, Duration: 30 day, Stop date: 08/20/13 11:07:00 bisacodyl 10 mg, 2 tab, PO No Bindal Route: PO, Drug 2012 [facility] form: ECTAB, Active Daily, Dosing Weight 91.42, kg, PRN Constipation, Start date: 07/21/13 11:08:00, Duration: 30 day, Stop date: 08/20/13 11:07:00 methocarbamol 750 mg, 1 tab, PO No Bindal Route: PO, Drug Longer 2012 [facility] form: TAB, Q6H, Active Dosing Weight 91.42, kg, PRN Muscle Spasms, Start date: 07/21/13 11:08:00, Duration: 30 day, Stop date: 08/20/13 11:07:00 methocarbamol + 750 mg, 7.5 mL, IV No Bindal Sodium Chloride Route: IV, Drug Longer 2012 [facility] 0.9% IV 100 mL form: INJ, Q6H, Active Dosing Weight 91.42, kg, PRN Muscle Spasms, Start date: 07/21/13 11:08:00, Duration: 30 day, Stop date: 08/20/13 11:07:00 Glady 7.5/325 1 tab, Route: PO No Bindal oral tablet PO, Drug Form: Longer 2012 [facility] TAB, Dosing Active Weight 91.42, kg, Q4H, PRN Pain, Start date: 07/21/13 11:08:00, Duration: 30 day, Stop date: 08/20/13 11:07:00 1/2NS + KCL 1,000 mL, Rate: IV No Bindal 20mEq/L 1000ml 75 ml/hr, Infuse Longer 2012 [facility] ([employer]) 1,000 over: 13.3 hr, Active mL Route: IV, Dosing Weight 91.42 kg, Total Volume: 1,000, Start date: 07/21/13 11:08:00, Duration: 30 day, Stop date: 08/20/13 11:07:00 acetaminophen 650 mg, 2 tab, PO No Bindal Route: PO, Drug Longer 2012 [facility] form: TAB, Q4H, Active Dosing Weight 91.42, kg, PRN Pain, Start date: 07/21/13 11:08:00, Duration: 30 day, Stop date: 08/20/13 11:07:00 carvedilol 6.25 Substitution Active mg oral tablet Allowed 2012 [facility] 5% Substitution Active topical film Allowed 2012 [facility] (patch) Cymbalta 30 mg 30 mg, 1 cap, PO Active Bindal oral delayed PO, Daily, 2012 [facility] release capsule Substitution Allowed losartan 100 mg 100 mg, 1 tab, PO Active Bindal oral tablet PO, Daily, 2012 [facility] Substitution Allowed VESIcare 5 mg 5 mg, 1 tab, PO, PO Active Bindal oral tablet Daily, 2012 [facility] Substitution Allowed levothyroxine 75 microgram, 1 PO Active Bindal 75 mcg (0.075 tab, PO, Daily, 2012 mg) oral tablet Substitution Allowed metFORmin 500 1,000 mg, 2 tab, PO Active mg oral tablet PO, Substitution 2012 [facility] Allowed aspirin 81 mg 81 mg, 1 tab, PO Active tablet, enteric PO, Daily, 0 2012 [facility] coated tab, Substitution Allowed, ECTAB simvastatin 20 20 mg, 1 tab, PO Active Bindal mg oral tablet PO, Bedtime, 30 2012 [facility] tab, Substitution Allowed omeprazole PO, Daily, PO Active Substitution 2012 [facility] Allowed gabapentin 600 600 mg, 1 tab, PO Active Bindal mg oral tablet PO, BID, 2012 [facility] Substitution Allowed influenza virus 0.5 mL, Route: IM No SYSTEM vaccine, IM, Drug Form: Longer 2012 [facility] inactivated SUSP, ONCALL, Active Start date: 07/14/13 14:52:32, Stop date: 08/13/13 14:47:32 Allergies, Adverse Reactions, Alerts Substance Category Reaction Severity Reaction Status Date Comments Source type Reported Morphine drug Allergy Active Sulfate allergy [facility] Immunizations Immunization Date Given Site Status Last Updated Comments Source Results Order Name Results Value Reference Date Interpretation Comments Source Range BEDSIDE Gluc POC Sliding 07/22 NA GLUCOSE Comment 1 Scale /2012 [facility] TESTING BEDSIDE Gluc POC Notify 07/22 NA GLUCOSE Comment 2 RN/ /2012 [facility] TESTING BEDSIDE Gluc POC 167 mg/dL 70 - 99 07/22 HI 1Interpretive GLUCOSE /2012 Data: [facility] TESTING Upper Reportable Limit: 200 mg/dL. CHEMISTRY eGFR 75 07/22 NA 4Result Comment: The eGFR is calculated using the CKD-EPI formula. In most young, healthy individuals the eGFR will be > 90 mL/min/1.73m2. The eGFR declines with age. An eGFR of 60-89 may be normal in mL/min/1.73 /2012 some populations, particularly the elderly, for whom the CKD-EPI formula has not been extensively validated. Use of the eGFR is not recommended in the following populations: [place] [id number] Individuals with unstable creatinine concentrations, including patients and those with serious co-morbid conditions. Patients with extremes in muscle mass or diet. The data above are obtained from the National Kidney Disease Education Program (NKDEP) which additionally recommends that when the eGFR is used in patients with extremes of body mass index for purposes of drug dosing, the eGFR should be multiplied by the estimated BMI. CHEMISTRY Creatinine 0.8 mg/dL 0.5 - 1.4 07/22 Normal Lvl [facility] CHEMISTRY Sodium Lvl 143 meq/L 135 - 145 07/22 Normal [facility] CHEMISTRY BUN 21 mg/dL 7 - 22 07/22 Normal [facility] CHEMISTRY AGAP 17.1 meq/L 10.0 - 07/22 Normal 20.0 [facility] CHEMISTRY Calcium Lvl 8.8 mg/dL 8.5 - 10.5 07/22 Normal [facility] CHEMISTRY CO2 25 meq/L 24 - 32 07/22 Normal [facility] CHEMISTRY Chloride 105 meq/L 95 - 109 07/22 Normal Lvl [facility] CHEMISTRY Potassium 4.1 meq/L 3.5 - 5.1 07/22 Normal Lvl [facility] CHEMISTRY Glucose Lvl 126 mg/dL 70 - 99 07/22 HI 6Interpretive Data: Adult reference range values reflect the clinical guidelines of the [place] [employer]. [facility] BEDSIDE Gluc POC 221 mg/dL 70 - 99 07/22 HI 2Interpretive GLUCOSE Data: [facility] TESTING Upper Reportable Limit: 200 mg/dL. BEDSIDE Gluc POC Assess 07/22 NA GLUCOSE Comment 1 /2012 [facility] TESTING CHEMISTRY eGFR 65 07/21 NA 5Result Comment: The eGFR is calculated using the CKD-EPI formula. In most young, healthy individuals the eGFR will be > 90 mL/min/1.73m2. The eGFR declines with age. An eGFR of 60-89 may be normal in mL/min/1.73 /2012 some populations, particularly the elderly, for whom the CKD-EPI formula has not been extensively validated. Use of the eGFR is not recommended in the following populations: [place] [id number] Individuals with unstable creatinine concentrations, including patients and those with serious co-morbid conditions. Patients with extremes in muscle mass or diet. The data above are obtained from the National Kidney Disease Education Program (NKDEP) which additionally recommends that when the eGFR is used in patients with extremes of body mass index for purposes of drug dosing, the eGFR should be multiplied by the estimated BMI. CHEMISTRY AGAP 15.3 meq/L 10.0 - 07/21 Normal 20.0 [facility] CHEMISTRY Sodium Lvl 140 meq/L 135 - 145 07/21 Normal [facility] CHEMISTRY Creatinine 0.9 mg/dL 0.5 - 1.4 07/21 Normal Lvl [facility] CHEMISTRY Calcium Lvl 8.4 mg/dL 8.5 - 10.5 07/21 LOW [facility] CHEMISTRY CO2 26 meq/L 24 - 32 07/21 Normal [facility] CHEMISTRY Potassium 4.3 meq/L 3.5 - 5.1 07/21 Normal Lvl [facility] CHEMISTRY Chloride 103 meq/L 95 - 109 07/21 Normal Lvl [facility] CHEMISTRY Glucose Lvl 178 mg/dL 70 - 99 07/21 HI 7Interpretive Data: Adult reference range values reflect the clinical guidelines of the [place] [employer]. [facility] CHEMISTRY BUN 18 mg/dL - 07/21 Normal [facility] BEDSIDE Gluc POC Verify 07/21 NA GLUCOSE Comment 1 w/ [facility] TESTING BEDSIDE Gluc POC 194 mg/dL 70 - 99 07/21 HI 3Interpretive GLUCOSE Data: [facility] TESTING Upper Reportable Limit: 200 mg/dL. Spine Spine Cervical spine one view: 07/21 - cervical 1 cervical - [facility] view view This radiograph was obtained during surgery for localization purposes. Read by: Marco Antonio Vazquez Dictated Date/time: 07/21/13 09:41 Electronically Signed by: Marco Antonio Vazquez MD 07/21/13 09:42 FINAL REPORT FINDINGS: This image reveals for needles been placement anterior approach and positioned with their tips overlying the disc spaces at the levels of C2-C3 , C3-C4, C4-C5 and C5-C6. SL: 14 Vital Signs Vital Sign Value Date Comments Source Diastolic (mm Hg) 63 07/22/2013 [facility] Systolic (mm Hg) 138 07/22/2013 [facility] Respitory Rate 16 07/22/2013 [facility] Heart Rate 64 07/22/2013 [facility] Temperature Oral (F) 97.4 F 07/22/2013 [facility] Diastolic (mm Hg) 68 07/22/2013 [facility] Heart Rate 83 07/22/2013 [facility] Respitory Rate 18 07/22/2013 [facility] Systolic (mm Hg) 130 07/22/2013 [facility] Temperature Oral (F) 97.9 F 07/22/2013 [facility] Heart Rate 87 07/22/2013 [facility] Temperature Oral (F) 97.5 F 07/22/2013 [facility] Diastolic (mm Hg) 69 07/22/2013 [facility] Systolic (mm Hg) 148 07/22/2013 [facility] Respitory Rate 18 07/22/2013 [facility] Weight 91.42 07/14/2013 [facility] Height 175.26 cm 07/14/2013 [facility] Encounters Location Location Encounter Encounter Reason Attending ADM DC Status Source Details Type Number For Provider Date Date Visit Inpatient [id number] NECK MARY ANNE 07/21 07/22 Active [facility] PAIN BINDAL /2012 [facility] Outpatient [id number] SARA 01/03 [facility] [facility] [id number] SARA 01/[address] Procedures Procedure Code Date Perfomer Comments Source Abdominal [id number] [facility] hysterectomy Appendectomy [id number] [facility] CEIOL - Cataract [facility] extraction and insertion of intraocular lens Cholecystectomy [id number] [facility] Knee replacement [id number] [facility]
--- OUTSIDE RECORDS SUMMARY | 2019-04-04 21:40 | XMS REPORT ---
:1945 [facility] Address [address] [place] [address] [address] [place] [address] Care Team Providers Name Role Phone DIEGO ALVARADO Unavailable Unavailable PAUL BROWN Unavailable Unavailable Problems This patient has no known problems. Allergies, Adverse Reactions, Alerts This patient has no known allergies or adverse reactions. Medications This patient has no known medications. Results Test Description Test Time Test Comments Text Results Atomic Results Result Comments RAD, SPINE, 2019-02-23 Reason for FINAL REPORT PATIENT ID: LUMBAR, 14:06:00 Exam:->Cervical [id number] Lumbar Spine - seven COMPLETE, WITH radiculopathy acute total images - including FLEX Chronic bilateral low flexion, extension, and back pain with oblique views HISTORY: bilateral sciatica Cervical radiculopathy acute Chronic bilateral low back pain with bilateral sciatica COMPARISON: None. FINDINGS:Stool and bowel gas partially obscures some of the bones.There are 5 non-rib bearing lumbar-type vertebral bodies. Mild right convex curvature. A 7 mm anterolisthesis of L4 on L5, which does not significant a change with flexion-extension.No evidence of a compression deformity or displaced fracture. Discs:Multilevel degenerative changes, most notably severe at L1-2, L2-3, and L5-S1. Facets:Multilevel hypertrophic degenerative changes, most notably severe from L3-4 to L5-S1. Other:Scattered atherosclerotic vascular calcifications. IMPRESSION:1.No acute radiographic abnormality.2.Multilevel degenerative changes, most notably at L5-S1.3.Degenerative anterolisthesis of L4 on L5, without segmental instability. Signed: Rex Stone [facility] Verified Date/Time: 02/23/2019 14:06:43 , SPINE, 2018-10-27 Reason for FINAL REPORT PATIENT ID: CERVICAL, 16:26:00 Exam:->cervical [id number] Cervical Spine, 7 COMPLETE, WITH radiculopathy, acute views including flexion, FLEX history of fusion of extension, and oblique views cervical spine HISTORY: cervical radiculopathy, acute history of fusion of cervical spine COMPARISON: None available FINDINGS:Limited sensitivity for detection of subtle fractures and ligamentous abnormalities.Diffusely decreased mineralization of the osseous structures further limits bone detail.On the lateral view, the cervical spine is visualized from the skull base to C7.Mild straightening of the normal cervical lordosis.No acute displaced fracture is identified involving the visualized cervical spine. Osseous fusion from C3 to C7 with associated anterior plate and screw construct.The angle of the oblique projections limits evaluation of the neural foramina. Disc Spaces and Uncovertebral Joints:Otherwise, unremarkable. Facets:Partially visualized facet arthrosis at C7-T1, likely severe. IMPRESSION:1. No acute radiographic abnormality.2. Osseous fusion from C3 to C7, no hardware loosening or failure. Signed: Rex Stone [facility] Verified Date/Time: 10/27/2018 16:26:17 -GLUCOSE METER 2018-03-20 09:24:00 Test Item Value Reference Range Comments POC-GLUCOSE METER (BEAKER) (test 160 mg/dL 70-110 TESTED AT [facility] [address] [facility] czak=5859) [facility] [address] BUN AND [id number] 14:14:00 Test Item Value Reference Range Comments BLOOD UREA NITROGEN 12 mg/dL 7-21 (BEAKER) (test yaku=821) CREATININE (BEAKER) (test 0.74 mg/dL 0.57-1.25 mwcg=979) EGFR (BEAKER) (test mL/min/1.73 sq m INSUFFICIENT CLINICAL DATA qkgj=2832) TO CALCULATE ESTIMATED GFR. [id number] 14:12:00 Test Item Value Reference Range Comments SODIUM (BEAKER) (test hrat=404) 142 meq/L 136-145 POTASSIUM (BEAKER) (test rqyi=524) 4.8 meq/L 3.5-5.1 CHLORIDE (BEAKER) (test nzop=842) 106 meq/L 98-107 CO2 (BEAKER) (test bdvv=087) 27 meq/L 22-29 [id number] 14:12:00 Test Item Value Reference Range Comments GLUCOSE RANDOM (BEAKER) (test sbeo=596) 123 mg/dL 70-105 [id number] 13:28:00 Test Item Value Reference Range Comments HEMOGLOBIN (BEAKER) (test wfla=713) 10.9 GM/DL 11.2-15.7 AFB CULTURE + [id number] 19:42:00 Test Item Value Reference Range Comments CULTURE (BEAKER) (test No acid-fast bacilli isolated fagw=6910) in 42 days AFB SMEAR (BEAKER) (test No acid fast bacilli seen rizu=548) AFB CULTURE + [id number] 19:42:00 Test Item Value Reference Range Comments CULTURE (BEAKER) (test No acid-fast bacilli isolated yyzc=8198) in 42 days AFB SMEAR (BEAKER) (test No acid fast bacilli seen cvfr=795) AFB CULTURE + [id number] 19:42:00 Test Item Value Reference Range Comments CULTURE (BEAKER) (test No acid-fast bacilli isolated ckxb=2915) in 42 days AFB SMEAR (BEAKER) (test No acid fast bacilli seen fdbc=780) FUNGUS CULTURE + [id number] 07:50:00 Test Item Value Reference Range Comments CULTURE (BEAKER) (test No fungus isolated in 28 days cqnt=1678) FUNGUS SMEAR (BEAKER) (test No fungi seen eiwn=6695) FUNGUS CULTURE + [id number] 07:50:00 Test Item Value Reference Range Comments CULTURE (BEAKER) (test No fungus isolated in 28 days bnmw=0013) FUNGUS SMEAR (BEAKER) (test No fungi seen gglj=7703) FUNGUS CULTURE + [id number] 07:50:00 Test Item Value Reference Range Comments CULTURE (BEAKER) (test No fungus isolated in 28 days shnw=2833) FUNGUS SMEAR (BEAKER) (test No fungi seen ldbc=7241) ANAEROBIC [id number] 17:16:00 Test Item Value Reference Range Comments CULTURE (BEAKER) (test wdso=0060) No anaerobes isolated ANAEROBIC [id number] 15:25:00 Test Item Value Reference Range Comments CULTURE (BEAKER) (test igyw=8716) No anaerobes isolated ANAEROBIC [id number] 15:25:00 Test Item Value Reference Range Comments CULTURE (BEAKER) (test lhao=0569) No anaerobes isolated BODY FLUID CULTURE + GRAM [id number] 16:23:00 Test Item Value Reference Range Comments CULTURE (BEAKER) (test cjkx=2596) No growth Received in Aerobic BTA bottle only.BLOOD [id number] 11:00:00 Test Item Value Reference Range Comments CULTURE (BEAKER) (test bafa=7528) No growth in 5 days BLOOD [id number] 11:00:00 Test Item Value Reference Range Comments CULTURE (BEAKER) (test qfir=8051) No growth in 5 days ANAEROBIC [id number] 09:35:00 Test Item Value Reference Range Comments CULTURE (BEAKER) (test ujjz=4330) No anaerobes isolated Received in Anaerobic BTA bottle only.SURGICALLY OBTAINED CULTURE + GRAM [id number] 08:53:00 Test Item Value Reference Range Comments CULTURE (BEAKER) (test tdzw=6887) No growth GRAM STAIN RESULT (BEAKER) (test 2+ WBCs xzxh=9839) GRAM STAIN RESULT (BEAKER) (test No organisms seen cqrw=03783) SURGICALLY OBTAINED CULTURE + GRAM [id number] 08:52:00 Test Item Value Reference Range Comments CULTURE (BEAKER) (test qkfg=9087) No growth GRAM STAIN RESULT (BEAKER) (test 1+ WBCs toiy=1912) GRAM STAIN RESULT (BEAKER) (test No organisms seen njft=72612) SURGICALLY OBTAINED CULTURE + GRAM [id number] 08:46:00 Test Item Value Reference Range Comments CULTURE (BEAKER) (test cefs=8658) No growth GRAM STAIN RESULT (BEAKER) (test 1+ WBCs uepn=5993) GRAM STAIN RESULT (BEAKER) (test No organisms seen qeav=69555) PERIPHERAL BLOOD SMEAR - PATHOLOGIST [id number] 12:29:00 Test Item Value Reference Range Comments RBC MORPHOLOGY (BEAKER) Hypochromasia (test thwb=7169) RBC MORPHOLOGY (BEAKER) Anisocytosis (test dqsf=24596) RBC MORPHOLOGY (BEAKER) Poikilocytosis (test fbzj=31883) RBC MORPHOLOGY (BEAKER) Polychromasia (test jifl=79789) WBC MORPHOLOGY (BEAKER) See comment (test emmj=5973) PLT MORPHOLOGY (BEAKER) Unremarkable (test ckyf=0242) PERIPHERAL SMR REVIEW Hypochromic, normocytic anemia (BEAKER) (test ruzb=8659) with mild anisopoikilocytosis with elliptocytes and spherocytes. Mild polychromasia. WBCs demonstrate rare myeloid precursors and lymphocytes with reactive/atypical forms. No blasts are identified. [id number] Luis Jalloh MD (electronic (BEAKER) (test ygdi=8084) signature) POCT-GLUCOSE [id number] 12:06:00 Test Item Value Reference Range Comments POC-GLUCOSE METER (BEAKER) 95 mg/dL 70-110 TESTED AT [facility] [address] [facility] (test ypdz=8338) [place] [id number] POCT-GLUCOSE [id number] 08:47:00 Test Item Value Reference Range Comments POC-GLUCOSE METER (BEAKER) 196 mg/dL 70-110 TESTED AT [address] (test zsgu=4781) [facility] [address] BASIC METABOLIC [id number] 05:15:00 Test Item Value Reference Range Comments SODIUM (BEAKER) (test 138 meq/L 136-145 sqed=501) POTASSIUM (BEAKER) (test 3.8 meq/L 3.5-5.1 huce=013) CHLORIDE (BEAKER) (test 105 meq/L 98-107 xsef=529) CO2 (BEAKER) (test 25 meq/L 22-29 aeik=590) BLOOD UREA NITROGEN 12 mg/dL 7-21 (BEAKER) (test zwbq=813) CREATININE (BEAKER) (test 0.68 mg/dL 0.57-1.25 rkli=711) GLUCOSE RANDOM (BEAKER) 131 mg/dL 70-105 (test ohoq=620) CALCIUM (BEAKER) (test 8.6 mg/dL 8.4-10.2 kegt=573) EGFR (BEAKER) (test mL/min/1.73 sq m INSUFFICIENT CLINICAL DATA dwkx=3008) TO CALCULATE ESTIMATED GFR. CBC W/PLT COUNT & AUTO [id number] 04:48:00 Test Item Value Reference Range Comments WHITE BLOOD CELL COUNT (BEAKER) (test lgto=421) 5.5 K/ L 4.0-10.0 RED BLOOD CELL COUNT (BEAKER) (test fmud=402) 3.49 M/ L 4.00-5.00 HEMOGLOBIN (BEAKER) (test jvir=613) 9.1 GM/DL 12.0-15.0 HEMATOCRIT (BEAKER) (test hgnk=428) 28.5 % 36.0-45.0 MEAN CORPUSCULAR VOLUME (BEAKER) (test ktfy=958) 81.8 fL 82.0-99.0 MEAN CORPUSCULAR HEMOGLOBIN (BEAKER) (test 26.1 pg 27.0-33.0 evff=952) MEAN CORPUSCULAR HEMOGLOBIN CONC (BEAKER) (test 31.9 GM/DL 32.0-36.0 efvr=601) RED CELL DISTRIBUTION WIDTH (BEAKER) (test 15.4 % 10.3-14.2 egaw=517) PLATELET COUNT (BEAKER) (test aplw=675) 167 K/CU MM 150-430 MEAN PLATELET VOLUME (BEAKER) (test xoxk=976) 8.2 fL 6.5-10.5 NUCLEATED RED BLOOD CELLS (BEAKER) (test 0 /100 WBC 0-0 poqv=219) NEUTROPHILS RELATIVE PERCENT (BEAKER) (test 69 % qusj=531) LYMPHOCYTES RELATIVE PERCENT (BEAKER) (test 21 % nivi=299) MONOCYTES RELATIVE PERCENT (BEAKER) (test 7 % aqhh=750) EOSINOPHILS RELATIVE PERCENT (BEAKER) (test 2 % jujd=774) BASOPHILS RELATIVE PERCENT (BEAKER) (test 0 % qqss=038) NEUTROPHILS ABSOLUTE COUNT (BEAKER) (test 3.75 K/ L 1.80-8.00 tkox=291) LYMPHOCYTES ABSOLUTE COUNT (BEAKER) (test 1.17 K/ L 1.48-4.50 owfv=577) MONOCYTES ABSOLUTE COUNT (BEAKER) (test 0.40 K/ L 0.00-1.30 vhyi=379) EOSINOPHILS ABSOLUTE COUNT (BEAKER) (test 0.12 K/ L 0.00-0.50 brjf=946) BASOPHILS ABSOLUTE COUNT (BEAKER) (test 0.02 K/ L 0.00-0.20 pust=765) 0.00POCT-GLUCOSE [id number] 20:56:00 Test Item Value Reference Range Comments POC-GLUCOSE METER (BEAKER) 177 mg/dL 70-110 TESTED AT [address] (test ixiq=9711) [facility] [address] POCT-GLUCOSE [id number] 16:56:00 Test Item Value Reference Range Comments POC-GLUCOSE METER (BEAKER) 215 mg/dL 70-110 TESTED AT [address] (test ntru=4324) [facility] [address] POCT-GLUCOSE [id number] 12:12:00 Test Item Value Reference Range Comments POC-GLUCOSE METER (BEAKER) 161 mg/dL 70-110 TESTED AT [address] (test zzfr=2304) [facility] [address] POCT-GLUCOSE [id number] 08:06:00 Test Item Value Reference Range Comments POC-GLUCOSE METER (BEAKER) 139 mg/dL 70-110 TESTED AT [address] (test cfel=6656) [facility] [address] CBC W/PLT COUNT & AUTO [id number] 05:38:00 Test Item Value Reference Range Comments WHITE BLOOD CELL COUNT (BEAKER) (test qceg=803) 5.6 K/ L 4.0-10.0 RED BLOOD CELL COUNT (BEAKER) (test xiar=492) 3.43 M/ L 4.00-5.00 HEMOGLOBIN (BEAKER) (test uohi=220) 9.0 GM/DL 12.0-15.0 HEMATOCRIT (BEAKER) (test vlbt=200) 28.2 % 36.0-45.0 MEAN CORPUSCULAR VOLUME (BEAKER) (test sftr=114) 82.2 fL 82.0-99.0 MEAN CORPUSCULAR HEMOGLOBIN (BEAKER) (test 26.1 pg 27.0-33.0 tnbd=588) MEAN CORPUSCULAR HEMOGLOBIN CONC (BEAKER) (test 31.7 GM/DL 32.0-36.0 gozw=097) RED CELL DISTRIBUTION WIDTH (BEAKER) (test 15.5 % 10.3-14.2 htqa=992) PLATELET COUNT (BEAKER) (test qaoj=651) 155 K/CU MM 150-430 MEAN PLATELET VOLUME (BEAKER) (test oslu=110) 8.5 fL 6.5-10.5 NUCLEATED RED BLOOD CELLS (BEAKER) (test 0 /100 WBC 0-0 zqhz=711) NEUTROPHILS RELATIVE PERCENT (BEAKER) (test 70 % nzig=498) LYMPHOCYTES RELATIVE PERCENT (BEAKER) (test 19 % ohgt=832) MONOCYTES RELATIVE PERCENT (BEAKER) (test 9 % nmnk=584) EOSINOPHILS RELATIVE PERCENT (BEAKER) (test 2 % sndh=693) BASOPHILS RELATIVE PERCENT (BEAKER) (test 1 % ezbo=889) NEUTROPHILS ABSOLUTE COUNT (BEAKER) (test 3.94 K/ L 1.80-8.00 hefd=715) LYMPHOCYTES ABSOLUTE COUNT (BEAKER) (test 1.04 K/ L 1.48-4.50 wnhr=524) MONOCYTES ABSOLUTE COUNT (BEAKER) (test 0.48 K/ L 0.00-1.30 qhqw=611) EOSINOPHILS ABSOLUTE COUNT (BEAKER) (test 0.12 K/ L 0.00-0.50 pjey=513) BASOPHILS ABSOLUTE COUNT (BEAKER) (test 0.03 K/ L 0.00-0.20 aiwa=438) 0.00BASI METABOLIC [id number] 05:28:00 Test Item Value Reference Range Comments SODIUM (BEAKER) (test 139 meq/L 136-145 gzls=895) POTASSIUM (BEAKER) (test 3.8 meq/L 3.5-5.1 mznq=178) CHLORIDE (BEAKER) (test 107 meq/L 98-107 kjpy=157) CO2 (BEAKER) (test 26 meq/L 22-29 fqni=645) BLOOD UREA NITROGEN 9 mg/dL 7-21 (BEAKER) (test mrgc=799) CREATININE (BEAKER) (test 0.63 mg/dL 0.57-1.25 xesl=243) GLUCOSE RANDOM (BEAKER) 114 mg/dL 70-105 (test vndu=244) CALCIUM (BEAKER) (test 8.7 mg/dL 8.4-10.2 vywn=718) EGFR (BEAKER) (test mL/min/1.73 sq m INSUFFICIENT CLINICAL DATA qxto=0239) TO CALCULATE ESTIMATED GFR. POCT-GLUCOSE [id number] 21:25:00 Test Item Value Reference Range Comments POC-GLUCOSE METER (BEAKER) 214 mg/dL 70-110 TESTED AT [facility] [address] [facility] (test fvsp=1381) [facility] [address] (MANUAL DIFFERENTIAL)2017-04-13 18:07:00 Test Item Value Reference Range Comments NEUTROPHILS - REL (DIFF) (BEAKER) (test iosx=0462) 64 % LYMPHOCYTES - REL (DIFF) (BEAKER) (test hqaw=5330) 24 % MONOCYTES - REL (DIFF) (BEAKER) (test uxvp=1117) 11 % EOSINOPHILS - REL (DIFF) (BEAKER) (test jnlf=2137) 1 % NEUTROPHILS - ABS (DIFF) (BEAKER) (test gzpn=5628) 3.84 K/ L 1.80-8.00 LYMPHOCYTES - ABS (DIFF) (BEAKER) (test vvxs=5476) 1.44 K/ L 1.48-4.50 MONOCYTES - ABS (DIFF) (BEAKER) (test xciy=7231) 0.66 K/ L 0.00-1.30 EOSINOPHILS - ABS (DIFF) (BEAKER) (test ikjg=9482) 0.06 K/ L 0.00-0.50 TOTAL COUNTED (BEAKER) (test ynfd=2368) 100 WBC MORPHOLOGY (BEAKER) (test vxrh=874) Normal PLT MORPHOLOGY (BEAKER) (test xfom=832) Normal RBC MORPHOLOGY (BEAKER) (test hgar=599) Normal [id number] 17:42:00 Test Item Value Reference Range Comments FERRITIN (BEAKER) (test apjf=430) 269 ng/mL 5-275 Effective 09/14/2014: Reference Range ChangeNew: Male 5-275 Previous: Male 22-322 Female 5-275 Female 10-291HEPATITIS C [id number] 17:39:00 Test Item Value Reference Range Comments HEPATITIS C ANTIBODY (BEAKER) (test whnw=701) Nonreactive Nonreactive HIV-1 ANTIGEN WITH HIV-1/2 [id number] 17:39:00 Test Item Value Reference Range Comments HIV-1 ANTIGEN WITH HIV 1\\T\\2 ANTIBODY (2) Nonreactive Nonreactive (BEAKER) (test xvcy=4341) CBC W/PLT COUNT & AUTO [id number] 17:19:00 Test Item Value Reference Range Comments WHITE BLOOD CELL COUNT (BEAKER) (test hwzd=069) 6.0 K/ L 4.0-10.0 RED BLOOD CELL COUNT (BEAKER) (test zvvd=726) 3.52 M/ L 4.00-5.00 HEMOGLOBIN (BEAKER) (test hjyz=472) 9.0 GM/DL 12.0-15.0 HEMATOCRIT (BEAKER) (test jtfl=814) 29.1 % 36.0-45.0 MEAN CORPUSCULAR VOLUME (BEAKER) (test bojd=843) 82.5 fL 82.0-99.0 MEAN CORPUSCULAR HEMOGLOBIN (BEAKER) (test 25.7 pg 27.0-33.0 eaah=407) MEAN CORPUSCULAR HEMOGLOBIN CONC (BEAKER) (test 31.1 GM/DL 32.0-36.0 ftcv=656) RED CELL DISTRIBUTION WIDTH (BEAKER) (test 15.8 % 10.3-14.2 ucyv=967) PLATELET COUNT (BEAKER) (test dajf=622) 151 K/CU MM 150-430 MEAN PLATELET VOLUME (BEAKER) (test izsd=980) 8.4 fL 6.5-10.5 NUCLEATED RED BLOOD CELLS (BEAKER) (test 0 /100 WBC 0-0 ehre=584) NEUTROPHILS RELATIVE PERCENT (BEAKER) (test 70 % bqdv=395) LYMPHOCYTES RELATIVE PERCENT (BEAKER) (test 19 % wxsc=838) MONOCYTES RELATIVE PERCENT (BEAKER) (test 9 % hqci=536) EOSINOPHILS RELATIVE PERCENT (BEAKER) (test 2 % drfb=781) BASOPHILS RELATIVE PERCENT (BEAKER) (test 0 % juas=096) NEUTROPHILS ABSOLUTE COUNT (BEAKER) (test 4.20 K/ L 1.80-8.00 jclk=265) LYMPHOCYTES ABSOLUTE COUNT (BEAKER) (test 1.16 K/ L 1.48-4.50 owaa=485) MONOCYTES ABSOLUTE COUNT (BEAKER) (test 0.52 K/ L 0.00-1.30 uxic=128) EOSINOPHILS ABSOLUTE COUNT (BEAKER) (test 0.10 K/ L 0.00-0.50 dupv=214) BASOPHILS ABSOLUTE COUNT (BEAKER) (test 0.03 K/ L 0.00-0.20 rrym=731) 0.00IRON, TIBC, % SAT. (WITHOUT FERRITIN)2017-04-13 17:18:00 Test Item Value Reference Range Comments IRON (BEAKER) (test pjqk=281) 10 ug/dL 40-160 TOTAL IRON BINDING CAPACITY (BEAKER) (test 185 ug/dL 250-450 vavy=561) IRON % SATURATION (2) ([facility]) (test rkkh=8522) 5 % 20-55 POCT-GLUCOSE [id number] 17:09:00 Test Item Value Reference Range Comments POC-GLUCOSE METER ([facility]) 138 mg/dL 70-110 TESTED AT [address] (test mgsb=4097) [facility] [address] RETICULOCYTE [id number] 17:03:00 Test Item Value Reference Range Comments RETICULOCYTE COUNT PCT ([facility]) (test eilu=298) 1.3 % 0.4-2.9 POCT-GLUCOSE [id number] 12:10:00 Test Item Value Reference Range Comments POC-GLUCOSE METER ([facility]) 203 mg/dL 70-110 TESTED AT [address] (test dyib=3617) [facility] [address] HEMOGLOBIN [id number] 11:08:00 Test Item Value Reference Range Comments HEMOGLOBIN A1C ([facility]) (test jqbq=294) 6.1 % 4.3-6.1 URINE [id number] 10:17:00 Test Item Value Reference Range Comments CULTURE ([facility]) (test tqjr=9969) No growth GRAM STAIN RESULT ([facility]) (test <1+ WBCs wfer=0639) GRAM STAIN RESULT ([facility]) (test No organisms seen irsf=77108) VANCOMYCIN LEVEL, [id number] 09:45:00 Test Item Value Reference Range Comments VANCOMYCIN TROUGH ([facility]) (test zqip=810) 15.6 ug/mL 10.0-20.0 CBC W/PLT COUNT & AUTO [id number] 09:00:00 Test Item Value Reference Range Comments WHITE BLOOD CELL COUNT (BEAKER) (test wjrd=356) 5.5 K/ L 4.0-10.0 RED BLOOD CELL COUNT (BEAKER) (test foke=591) 3.34 M/ L 4.00-5.00 HEMOGLOBIN (BEAKER) (test kzrk=611) 8.8 GM/DL 12.0-15.0 HEMATOCRIT (BEAKER) (test hbwr=400) 27.7 % 36.0-45.0 MEAN CORPUSCULAR VOLUME (BEAKER) (test esmx=257) 83.0 fL 82.0-99.0 MEAN CORPUSCULAR HEMOGLOBIN (BEAKER) (test 26.2 pg 27.0-33.0 xpvn=347) MEAN CORPUSCULAR HEMOGLOBIN CONC (BEAKER) (test 31.5 GM/DL 32.0-36.0 pzaq=033) RED CELL DISTRIBUTION WIDTH (BEAKER) (test 15.7 % 10.3-14.2 fyip=727) PLATELET COUNT (BEAKER) (test iowo=398) 132 K/CU MM 150-430 MEAN PLATELET VOLUME (BEAKER) (test cmyg=323) 8.9 fL 6.5-10.5 NUCLEATED RED BLOOD CELLS (BEAKER) (test 0 /100 WBC 0-0 ykbp=556) NEUTROPHILS RELATIVE PERCENT (BEAKER) (test 70 % higr=839) LYMPHOCYTES RELATIVE PERCENT (BEAKER) (test 19 % ifzx=278) MONOCYTES RELATIVE PERCENT (BEAKER) (test 10 % xdah=064) EOSINOPHILS RELATIVE PERCENT (BEAKER) (test 1 % lvnf=971) BASOPHILS RELATIVE PERCENT (BEAKER) (test 0 % esjy=815) NEUTROPHILS ABSOLUTE COUNT (BEAKER) (test 3.81 K/ L 1.80-8.00 xldg=649) LYMPHOCYTES ABSOLUTE COUNT (BEAKER) (test 1.02 K/ L 1.48-4.50 olcr=980) MONOCYTES ABSOLUTE COUNT (BEAKER) (test 0.56 K/ L 0.00-1.30 zmye=498) EOSINOPHILS ABSOLUTE COUNT (BEAKER) (test 0.06 K/ L 0.00-0.50 kqto=063) BASOPHILS ABSOLUTE COUNT (BEAKER) (test 0.01 K/ L 0.00-0.20 npjq=791) 0.00POCT-GLUCOSE [id number] 08:21:00 Test Item Value Reference Range Comments POC-GLUCOSE METER (BEAKER) 144 mg/dL 70-110 TESTED AT [facility] [address] [facility] (test xmjp=8491) [facility] [address] BASIC METABOLIC [id number] 06:36:00 Test Item Value Reference Range Comments SODIUM (BEAKER) (test 139 meq/L 136-145 jlce=626) POTASSIUM (BEAKER) (test 3.7 meq/L 3.5-5.1 vyqw=586) CHLORIDE (BEAKER) (test 108 meq/L 98-107 smdg=426) CO2 (BEAKER) (test 26 meq/L 22-29 zqnc=321) BLOOD UREA NITROGEN 10 mg/dL 7-21 (BEAKER) (test cosu=110) CREATININE (BEAKER) (test 0.68 mg/dL 0.57-1.25 kkyd=465) GLUCOSE RANDOM (BEAKER) 135 mg/dL 70-105 (test awjh=074) CALCIUM (BEAKER) (test 8.4 mg/dL 8.4-10.2 mmjk=649) EGFR (BEAKER) (test mL/min/1.73 sq m INSUFFICIENT CLINICAL DATA knkw=5732) TO CALCULATE ESTIMATED GFR. POCT-GLUCOSE [id number] 21:03:00 Test Item Value Reference Range Comments POC-GLUCOSE METER (BEAKER) 163 mg/dL 70-110 TESTED AT [facility] [address] [facility] (test wgto=2768) [facility] [address] POCT-GLUCOSE [id number] 18:23:00 Test Item Value Reference Range Comments POC-GLUCOSE METER (BEAKER) 166 mg/dL 70-110 TESTED AT [address] (test mdrk=2252) [facility] [address] TSH/FREE T4 IF [id number] 16:47:00 Test Item Value Reference Range Comments THYROID STIMULATING HORMONE (BEAKER) (test 1.79 uIU/mL 0.35-4.94 kqsl=762) TISSUE [id number] 15:11:00Surgical Pathology Report Case: [id number] Authorizing Provider: Radha Gallo, Collected: 04/11/2017 1415 OrderingLocation: [facility] Received: 2016 0820 SERVICES Pathologist: Mague Geiger MD Specimen: Explant RIGHT KNEE, REMOVAL OF ORTHOPEDIC HARDWARE: - ORTHOPEDIC HARDWARE, (GROSS DIAGNOSIS ONLY) Infected right knee Hardware The specimen is received in a fluidless container labeled with the patient's information and labeled "hardware" and consists of an orthopedic hardware spacer measuring 6.1 x 3.6 x 0.8 cm. The serial number is "[id number]". There is also metal hardware measuring 5 x 0.6 x 0.2 cm. The specimen is submitted for gross identification. CG/JustinCT-GLUCOSE [id number] 12:42:00 Test Item Value Reference Range Comments POC-GLUCOSE METER (BEAKER) 145 mg/dL 70-110 TESTED AT [facility] [address] [facility] (test ikej=8972) [facility] [address] POCT-GLUCOSE [id number] 08:05:00 Test Item Value Reference Range Comments POC-GLUCOSE METER (BEAKER) 125 mg/dL 70-110 TESTED AT [place] [id number] [facility] (test mfch=5679) [facility] [address] BASIC METABOLIC [id number] 04:45:00 Test Item Value Reference Range Comments SODIUM (BEAKER) (test 137 meq/L 136-145 prks=080) POTASSIUM (BEAKER) (test 3.9 meq/L 3.5-5.1 uyyr=198) CHLORIDE (BEAKER) (test 106 meq/L 98-107 rigo=799) CO2 (BEAKER) (test 24 meq/L 22-29 yqtv=123) BLOOD UREA NITROGEN 11 mg/dL 7-21 (BEAKER) (test geqm=108) CREATININE (BEAKER) (test 0.72 mg/dL 0.57-1.25 sjsj=865) GLUCOSE RANDOM (BEAKER) 129 mg/dL 70-105 (test lzqp=833) CALCIUM (BEAKER) (test 8.4 mg/dL 8.4-10.2 hnfg=406) EGFR (BEAKER) (test mL/min/1.73 sq m INSUFFICIENT CLINICAL DATA blsz=3876) TO CALCULATE ESTIMATED GFR. CBC W/PLT COUNT & AUTO [id number] 04:29:00 Test Item Value Reference Range Comments WHITE BLOOD CELL COUNT (BEAKER) (test scpo=408) 8.8 K/ L 4.0-10.0 RED BLOOD CELL COUNT (BEAKER) (test luqj=815) 3.65 M/ L 4.00-5.00 HEMOGLOBIN (BEAKER) (test ydvp=187) 9.6 GM/DL 12.0-15.0 HEMATOCRIT (BEAKER) (test oowr=126) 30.0 % 36.0-45.0 MEAN CORPUSCULAR VOLUME (BEAKER) (test qnfs=463) 82.3 fL 82.0-99.0 MEAN CORPUSCULAR HEMOGLOBIN (BEAKER) (test 26.2 pg 27.0-33.0 jwlt=979) MEAN CORPUSCULAR HEMOGLOBIN CONC (BEAKER) (test 31.8 GM/DL 32.0-36.0 lyex=059) RED CELL DISTRIBUTION WIDTH (BEAKER) (test 15.7 % 10.3-14.2 vyid=525) PLATELET COUNT (BEAKER) (test zffq=362) 134 K/CU MM 150-430 MEAN PLATELET VOLUME (BEAKER) (test dxpb=248) 8.0 fL 6.5-10.5 NUCLEATED RED BLOOD CELLS (BEAKER) (test 0 /100 WBC 0-0 wscn=874) NEUTROPHILS RELATIVE PERCENT (BEAKER) (test 81 % iojw=273) LYMPHOCYTES RELATIVE PERCENT (BEAKER) (test 12 % pcfv=637) MONOCYTES RELATIVE PERCENT (BEAKER) (test 6 % iiug=543) EOSINOPHILS RELATIVE PERCENT (BEAKER) (test 1 % uhev=771) BASOPHILS RELATIVE PERCENT (BEAKER) (test 0 % fxyg=993) NEUTROPHILS ABSOLUTE COUNT (BEAKER) (test 7.16 K/ L 1.80-8.00 ndsl=330) LYMPHOCYTES ABSOLUTE COUNT (BEAKER) (test 1.04 K/ L 1.48-4.50 uhyo=517) MONOCYTES ABSOLUTE COUNT (BEAKER) (test 0.53 K/ L 0.00-1.30 cdxf=069) EOSINOPHILS ABSOLUTE COUNT (BEAKER) (test 0.06 K/ L 0.00-0.50 bdko=623) BASOPHILS ABSOLUTE COUNT (BEAKER) (test 0.03 K/ L 0.00-0.20 tlct=688) 0.00POCT-GLUCOSE [id number] 21:07:00 Test Item Value Reference Range Comments POC-GLUCOSE METER (BEAKER) 212 mg/dL 70-110 TESTED AT [address] (test asfd=0100) [place] [id number] POCT-GLUCOSE [id number] 16:46:00 Test Item Value Reference Range Comments POC-GLUCOSE METER (BEAKER) 127 mg/dL 70-110 TESTED AT [address] (test fekd=7399) [facility] [address] URINALYSIS W/ [id number] 12:56:00 Test Item Value Reference Range Comments COLOR (BEAKER) (test crwx=626) Light Yellow CLARITY (BEAKER) (test afik=166) Clear SPECIFIC GRAVITY UA (BEAKER) (test badp=893) 1.007 1.001-1.035 PH UA (BEAKER) (test wigr=311) 6.0 5.0-8.0 PROTEIN UA (BEAKER) (test qnlg=758) Negative Negative GLUCOSE UA (BEAKER) (test auzo=855) Negative Negative KETONES UA (BEAKER) (test yzsh=872) Trace Negative BILIRUBIN UA (BEAKER) (test seva=078) Negative Negative BLOOD UA (BEAKER) (test ytob=886) Negative Negative NITRITE UA (BEAKER) (test codi=713) Negative Negative LEUKOCYTE ESTERASE UA (BEAKER) (test txfo=352) Negative Negative UROBILINOGEN UA (BEAKER) (test vcae=474) 0.2 mg/dL 0.2-1.0 RBC UA (BEAKER) (test yskz=090) < /HPF WBC UA (BEAKER) (test sius=484) 2 /HPF MUCUS (BEAKER) (test ylpg=9220) Rare SQUAMOUS EPITHELIAL (BEAKER) (test mojj=613) 1 /HPF SOURCE(BEAKER) (test vivm=6465) BODY FLUID [id number] 12:35:00 Test Item Value Reference Range Comments CRYSTALS, BODY FLUID (BEAKER) No crystals seen. (test rbks=4438) [id number] (BEAKER) Luis Jalloh MD (electronic (test cxob=7654) signature) POCT-GLUCOSE [id number] 12:34:00 Test Item Value Reference Range Comments POC-GLUCOSE METER (BEAKER) 122 mg/dL 70-110 TESTED AT [facility] [address] [facility] (test daeq=7972) [facility] [address] POCT-GLUCOSE [id number] 08:29:00 Test Item Value Reference Range Comments POC-GLUCOSE METER (BEAKER) 158 mg/dL 70-110 TESTED AT [address] (test oqat=0013) [facility] [address] BODY FLUID CELL COUNT WITH [id number] 07:59:00 Test Item Value Reference Range Comments APPEARANCE FLUID (BEAKER) (test vzci=655) Cloudy Clear COLOR FLUID (BEAKER) (test bnjn=812) Yellow Colorless, Straw RBC FLUID (BEAKER) (test kjtd=860) 3223 /cu mm <=1 ADJUSTED WBC FLUID (BEAKER) (test voux=0802) 63393 /cu mm <=5 LINING CELLS (BEAKER) (test lcpn=8082) 0 /cu mm <=1 NEUTROPHILS FLUID (BEAKER) (test kbtx=5179) 86 % LYMPHS FLUID (BEAKER) (test tfod=455) 6 % MONO/MACROPHAGE FLUID (BEAKER) (test yrya=359) 8 % EOSINOPHILS FLUID (BEAKER) (test hkmg=428) 0 % BASO FLUID (BEAKER) (test urwk=631) 0 % CONTAINER BODY FLUID (BEAKER) (test pcdi=9922) EDTA Tube BASIC METABOLIC [id number] 05:09:00 Test Item Value Reference Range Comments SODIUM (BEAKER) (test 138 meq/L 136-145 shht=149) POTASSIUM (BEAKER) (test 3.7 meq/L 3.5-5.1 fgnd=312) CHLORIDE (BEAKER) (test 103 meq/L 98-107 cofh=418) CO2 (BEAKER) (test 26 meq/L 22-29 pqdi=467) BLOOD UREA NITROGEN 12 mg/dL 7-21 (BEAKER) (test lcqm=695) CREATININE (BEAKER) (test 0.72 mg/dL 0.57-1.25 kxtn=311) GLUCOSE RANDOM (BEAKER) 124 mg/dL 70-105 (test wipb=377) CALCIUM (BEAKER) (test 9.4 mg/dL 8.4-10.2 rjyg=000) EGFR (BEAKER) (test mL/min/1.73 sq m INSUFFICIENT CLINICAL DATA mfbf=1819) TO CALCULATE ESTIMATED GFR. CBC W/PLT COUNT & AUTO [id number] 05:06:00 Test Item Value Reference Range Comments WHITE BLOOD CELL COUNT (BEAKER) (test kqic=768) 8.7 K/ L 4.0-10.0 RED BLOOD CELL COUNT (BEAKER) (test lxmg=223) 4.31 M/ L 4.00-5.00 HEMOGLOBIN (BEAKER) (test fvpm=806) 11.4 GM/DL 12.0-15.0 HEMATOCRIT (BEAKER) (test oppg=267) 34.9 % 36.0-45.0 MEAN CORPUSCULAR VOLUME (BEAKER) (test yjhy=569) 80.9 fL 82.0-99.0 MEAN CORPUSCULAR HEMOGLOBIN (BEAKER) (test 26.4 pg 27.0-33.0 vsst=604) MEAN CORPUSCULAR HEMOGLOBIN CONC (BEAKER) (test 32.6 GM/DL 32.0-36.0 medx=074) RED CELL DISTRIBUTION WIDTH (BEAKER) (test 16.1 % 10.3-14.2 hubc=885) PLATELET COUNT (BEAKER) (test eohg=796) 153 K/CU MM 150-430 MEAN PLATELET VOLUME (BEAKER) (test zwti=615) 8.3 fL 6.5-10.5 NUCLEATED RED BLOOD CELLS (BEAKER) (test 0 /100 WBC 0-0 knjb=598) NEUTROPHILS RELATIVE PERCENT (BEAKER) (test 70 % eswb=958) LYMPHOCYTES RELATIVE PERCENT (BEAKER) (test 20 % snnw=553) MONOCYTES RELATIVE PERCENT (BEAKER) (test 9 % npao=589) EOSINOPHILS RELATIVE PERCENT (BEAKER) (test 1 % wvcs=719) BASOPHILS RELATIVE PERCENT (BEAKER) (test 0 % fipo=880) NEUTROPHILS ABSOLUTE COUNT (BEAKER) (test 6.08 K/ L 1.80-8.00 xlju=218) LYMPHOCYTES ABSOLUTE COUNT (BEAKER) (test 1.70 K/ L 1.48-4.50 mvuq=449) MONOCYTES ABSOLUTE COUNT (BEAKER) (test 0.81 K/ L 0.00-1.30 idei=163) EOSINOPHILS ABSOLUTE COUNT (BEAKER) (test 0.09 K/ L 0.00-0.50 qmyh=911) BASOPHILS ABSOLUTE COUNT (BEAKER) (test 0.02 K/ L 0.00-0.20 jnhd=175) 0.00
[2019-04-05] MEDS ORDERED: NA CHLORIDE 0.9% 1,000 ML ONE (00:20)
[2019-04-05] MEDS ORDERED: ONDANSETRON 4 MG/2 ML VIAL ONE (00:20)
[2019-04-05 00:37] LABS: Absolute Lymphocytes (CBC) 1.6 K/uL (0.7-4.9); Absolute Monocytes 0.6 K/uL (0.1-1.3); Absolute Neutrophil 5.6 K/uL (1.8-8.0); Basophils % 0.6 % (0-1.3); Eosinophils % 1.4 % (0-4.4); Hematocrit 40.5 % (36.0-45.0); Lymphocytes % 20.4 % (15.3-44.8); MPV 9.2 fL (7.6-11.3); Monocytes % 7.7 % (3.3-12.3); RBC Red Blood Cell Count 5.27 M/uL (3.86-4.86)
[2019-04-05 00:46] LABS: ALT/SGPT 19 U/L (12-78); AST/SGOT 8 U/L (15-37); Albumin 3.7 g/dL (3.4-5.0); Alkaline Phosphatase 129 U/L (45-117); BUN Blood Urea Nitrogen 21 mg/dL (7-18); Bicarbonate 26 mmol/L (21-32); Bilirubin Direct < 0.1 mg/dL (0-0.2); Bilirubin Total 0.3 mg/dL (0.2-1.0); Glucose Level 175 mg/dL (74-106); Lipase 114 U/L (73-393); Potassium 4.2 mmol/L (3.5-5.1); Protein, Total 7.9 g/dL (6.4-8.2); Sodium Level 141 mmol/L (136-145)
--- NOTE | 2019-04-05 01:24 | ER ---
Nurse's Notes [facility] Name: Sharon Delgadillo Age: 74 yrs Sex: Female : 1945 Arrival Date: 04/04/2019 Time: 21:38 Bed 17 Private MD: Louise Shaffer C Diagnosis: Diarrhea, unspecified Presentation: 04/04 21:54 Presenting complaint: Patient states: diarrhea and stomach cramps since Saturday. Denies tl2 vomiting, is able to tolerate fluids. Transition of care: patient was not received from another setting of care. Onset of symptoms was April 03, 2019. Risk Assessment: Do you want to hurt yourself or someone else? Patient reports no desire to harm self or others. Initial Sepsis Screen: Does the patient meet any 2 criteria? No. Patient's initial sepsis screen is negative. Does the patient have a suspected source of infection? No. Patient's initial sepsis screen is negative. Care prior to arrival: None. 21:54 Method Of Arrival: Wheelchair tl2 21:54 Acuity: NELIDA 3 tl2 Historical: - Allergies: 21:56 Morphine; tl2 - Home Meds: 21:56 escitalopram oxalate Oral [Active]; losartan Oral [Active]; Simvastatin Oral [Active]; tl2 Spiriva [Active]; Xopenex Inhl [Active]; 21:58 Lyrica Oral [Active]; tl2 - PMHx: 21:56 COPD; Diabetes - NIDDM; Hypertension; Hypothyroidism; tl2 - PSHx: 21:56 Knee surgery; tl2 21:57 Cholecystectomy; Appendectomy; Hysterectomy; tl2 - Immunization history:: Adult Immunizations up to date. - Social history:: Smoking status: . - Ebola Screening: : No symptoms or risks identified at this time. Screenin:58 Abuse screen: Denies threats or abuse. Nutritional screening: No deficits noted. tl2 Tuberculosis screening: No symptoms or risk factors identified. Fall Risk Ambulatory Aid- Crutches/Cane/Walker (15 pts). Assessment: 22:30 General: Appears in no apparent distress. comfortable, Behavior is calm, cooperative, rr5 appropriate for age. 22:30 Pain: Complains of pain in abdomen Pain does not radiate. Pain currently is 6 out of 10 rr5 on a pain scale. Quality of pain is described as aching, Pain began gradually, Is intermittent. Neuro: Level of Consciousness is awake, alert, obeys commands, Oriented to person, place, time, situation, Appropriate for age. Cardiovascular: Capillary refill < 3 seconds Patient's skin is warm and dry. Respiratory: Airway is patent Respiratory effort is even, unlabored, Respiratory pattern is regular, symmetrical. GI: Abdomen is round Bowel sounds present X 4 quads. Abd is soft and non tender Reports lower abdominal pain, upper abdominal pain, diarrhea. : No signs and/or symptoms were reported regarding the genitourinary system. EENT: No signs and/or symptoms were reported regarding the EENT system. Derm: Skin is intact, Skin is pink, warm \T\ dry. Musculoskeletal: Capillary refill < 3 seconds, Range of motion: intact in all extremities. 23:30 Reassessment: Patient appears in no apparent distress at this time. No changes from rr5 previously documented assessment. went to restroom BM-4x watery. 04/05 00:45 Reassessment: Patient appears in no apparent distress at this time. Patient is alert, rr5 oriented x 3, equal unlabored respirations, skin warm/dry/pink. awaiting for results. 01:37 Reassessment: Patient and/or family updated on plan of care and expected duration. Pain ea level reassessed. Patient is alert, oriented x 3, equal unlabored respirations, skin warm/dry/pink. Discharge instructions given to patient, verbalized the understanding of instruction. Pt left ED ambulatory with family, pt tolerating well. Patient states feeling better. Patient states symptoms have improved. Vital Signs: 04/04 21:57 BP 156 / 66; Pulse 79; Resp 18; Temp 98.3(O); Pulse Ox 98% on R/A; Weight 91.63 kg; tl2 Height 5 ft. 9 in. (175.26 cm); 23:00 BP 133 / 79; Pulse 93; Resp 16; Pulse Ox 98% on R/A; rr5 04/05 00:00 BP 142 / 60; Pulse 90; Resp 16; Temp 98.5; Pulse Ox 98% ; rr5 00:40 BP 154 / 56; Pulse 99; Resp 17; Pulse Ox 99% on R/A; rr5 04/04 21:57 Body Mass Index 29.83 (91.63 kg, 175.26 cm) tl2 ED Course: 08 21:38 Patient arrived in ED. am2 21:38 Louise Shaffer MD is Private Physician. am2 21:55 Triage completed. tl2 21:57 Arm band placed on right wrist. tl2 22:30 Patient has correct armband on for positive identification. Bed in low position. Call rr5 light in reach. Side rails up X2. Pulse ox on. NIBP on. 22:42 Chavez Poon, SPIKE is Primary Nurse. rr5 23:57 Danielle Munoz FNP-C is PHCP. snw 23:57 Fab Lozada MD is Attending Physician. snw 06 00:22 Inserted saline lock: 22 gauge in left antecubital area, using aseptic technique. Blood oe collected. 01:23 Louise Shaffer MD is Referral Physician. snw 01:37 No provider procedures requiring assistance completed. IV discontinued, intact, ea bleeding controlled, No redness/swelling at site. Pressure dressing applied. Administered Medications: 00:30 Drug: NS 0.9% 1000 ml Route: IV; Rate: 75 ml/hr; Site: left antecubital; rr5 01:26 Follow up: Response: No adverse reaction; IV Status: Completed infusion; IV Intake: ea 1000ml 00:30 Drug: Zofran 4 mg Route: IVP; Site: left antecubital; rr5 01:26 Follow up: Response: No adverse reaction ea Intake: 01:26 IV: 1000ml; Total: 1000ml. ea Outcome: 01:24 Discharge ordered by . snw 01:37 Discharged to home ambulatory, with family. ea 01:37 Condition: improved 01:37 Discharge instructions given to patient, Instructed on discharge instructions, follow up and referral plans. medication usage, Demonstrated understanding of instructions, follow-up care, medications, Prescriptions given X 1. 01:38 Patient left the ED. ea Signatures: Danielle Munoz FNP-C FNP-Kati Diaz, RN RN tl2 Otf Eduardo Amanda am2 Myrna Mckeon RN RN ea Chavez Poon, RN RN rr5
--- NOTE | 2019-04-05 01:24 | EDPHYS ---
Physician Documentation [facility] Name: Sharon Delgadillo Age: 74 yrs Sex: Female : 1945 Arrival Date: 04/04/2019 Time: 21:38 Bed 17 Private MD: Louise Shaffer C ED Physician Fab Lozada HPI: 04/05 00:55 This 74 yrs old Female presents to ER via Wheelchair with complaints of snw Abdominal Pain, Diarrhea. 00:55 The patient presents with cramping and gas prior to profuse diarrhea since yesterday. snw Pt states she has been nauseated a few times, no vomiting. Denies fever. Onset: The symptoms/episode began/occurred suddenly, yesterday. The symptoms do not radiate. Associated signs and symptoms: none. The symptoms are described as crampy. Modifying factors: The symptoms are alleviated by nothing. Severity of pain: At its worst the pain was mild. It is unknown whether or not the patient has had similar symptoms in the past. rec'd injection in back a few weeks ago, no recent abx. Historical: - Allergies: 04/04 21:56 Morphine; tl2 - Home Meds: 21:56 escitalopram oxalate Oral [Active]; losartan Oral [Active]; Simvastatin Oral [Active]; tl2 Spiriva [Active]; Xopenex Inhl [Active]; 21:58 Lyrica Oral [Active]; tl2 - PMHx: 21:56 COPD; Diabetes - NIDDM; Hypertension; Hypothyroidism; tl2 - PSHx: 21:56 Knee surgery; tl2 21:57 Cholecystectomy; Appendectomy; Hysterectomy; tl2 - Immunization history:: Adult Immunizations up to date. - Social history:: Smoking status: . - Ebola Screening: : No symptoms or risks identified at this time. ROS: 04/05 00:54 Constitutional: Negative for fever, chills, and weight loss, Eyes: Negative for injury, snw pain, redness, and discharge, ENT: Negative for injury, pain, and discharge, Neck: Negative for injury, pain, and swelling, Cardiovascular: Negative for chest pain, palpitations, and edema, Respiratory: Negative for shortness of breath, cough, wheezing, and pleuritic chest pain, Back: Negative for injury and pain, : Negative for injury, bleeding, discharge, and swelling, MS/Extremity: Negative for injury and deformity, Skin: Negative for injury, rash, and discoloration, Neuro: Negative for headache, weakness, numbness, tingling, and seizure. Abdomen/GI: Positive for nausea, diarrhea, abdominal cramps. Exam: 00:54 Constitutional: This is a well developed, well nourished patient who is awake, alert, snw and in no acute distress. Head/Face: Normocephalic, atraumatic. Eyes: Pupils equal round and reactive to light, extra-ocular motions intact. Lids and lashes normal. Conjunctiva and sclera are non-icteric and not injected. Cornea within normal limits. Periorbital areas with no swelling, redness, or edema. ENT: Nares patent. No nasal discharge, no septal abnormalities noted. Tympanic membranes are normal and external auditory canals are clear. Oropharynx with no redness, swelling, or masses, exudates, or evidence of obstruction, uvula midline. Mucous membranes moist. Neck: Trachea midline, no thyromegaly or masses palpated, and no cervical lymphadenopathy. Supple, full range of motion without nuchal rigidity, or vertebral point tenderness. No Meningismus. Chest/axilla: Normal chest wall appearance and motion. Nontender with no deformity. No lesions are appreciated. Cardiovascular: Regular rate and rhythm with a normal S1 and S2. No gallops, murmurs, or rubs. Normal PMI, no JVD. No pulse deficits. Respiratory: Lungs have equal breath sounds bilaterally, clear to auscultation and percussion. No rales, rhonchi or wheezes noted. No increased work of breathing, no retractions or nasal flaring. Back: No spinal tenderness. No costovertebral tenderness. Full range of motion. Skin: Warm, dry with normal turgor. Normal color with no rashes, no lesions, and no evidence of cellulitis. MS/ Extremity: Pulses equal, no cyanosis. Neurovascular intact. Full, normal range of motion. Neuro: Awake and alert, GCS 15, oriented to person, place, time, and situation. Cranial nerves II-XII grossly intact. Motor strength 5/5 in all extremities. Sensory grossly intact. Cerebellar exam normal. Normal gait. 00:54 Abdomen/GI: Inspection: abdomen appears normal, Bowel sounds: hyperactive, in all quadrants, Palpation: abdomen is soft and non-tender, in all quadrants. Vital Signs: 04/04 21:57 BP 156 / 66; Pulse 79; Resp 18; Temp 98.3(O); Pulse Ox 98% on R/A; Weight 91.63 kg; tl2 Height 5 ft. 9 in. (175.26 cm); 23:00 BP 133 / 79; Pulse 93; Resp 16; Pulse Ox 98% on R/A; rr5 04/05 00:00 BP 142 / 60; Pulse 90; Resp 16; Temp 98.5; Pulse Ox 98% ; rr5 00:40 BP 154 / 56; Pulse 99; Resp 17; Pulse Ox 99% on R/A; rr5 04/04 21:57 Body Mass Index 29.83 (91.63 kg, 175.26 cm) tl2 MDM: 00:00 Patient medically screened. snw 01:24 Data reviewed: vital signs, nurses notes. Data interpreted: Pulse oximetry: on room air snw is 99 %. Interpretation: normal. Counseling: I had a detailed discussion with the patient and/or guardian regarding: the historical points, exam findings, and any diagnostic results supporting the discharge/admit diagnosis, lab results, the need for outpatient follow up, to return to the emergency department if symptoms worsen or persist or if there are any questions or concerns that arise at home. Response to treatment: the patient's symptoms have markedly improved after treatment. Special discussion: Based on the patient's Hx, exam, and Dx evaluation, there is no indication for emergent surgery or inpatient Tx. It is understood by the patient/guardian that if the Sx's persist or worsen they need to return immediately for re-evaluation. Based on the history and exam findings, there is no indication for further emergent testing or inpatient evaluation. I discussed with the patient/guardian the need to see the primary care provider for further evaluation of the symptoms. 04/04 23:58 Order name: Basic Metabolic Panel; Complete Time: 00:46 snw 04/04 23:58 Order name: CBC with Diff; Complete Time: 00:45 snw 04/04 23:58 Order name: Creatinine for Radiology; Complete Time: 00:45 snw 04/04 23:58 Order name: Hepatic Function; Complete Time: 00:46 snw 04/04 23:58 Order name: Lipase; Complete Time: 00:46 snw 04/05 00:00 Order name: Urine Dipstick--Ancillary (enter results) ag4 04/04 23:58 Order name: IV Saline Lock; Complete Time: 00:32 snw 04/04 23:58 Order name: Labs collected and sent; Complete Time: 00:32 snw 04/05 00:17 Order name: Stool Culture [facility] 04/05 00:17 Order name: Fecal Leukocyte Stain [facility] 04/05 00:17 Order name: CDIFF [facility] Administered Medications: 00:30 Drug: NS 0.9% 1000 ml Route: IV; Rate: 75 ml/hr; Site: left antecubital; rr5 01:26 Follow up: Response: No adverse reaction; IV Status: Completed infusion; IV Intake: ea 1000ml 00:30 Drug: Zofran 4 mg Route: IVP; Site: left antecubital; rr5 01:26 Follow up: Response: No adverse reaction ea Disposition: 06:54 Co-signature as Attending Physician, Fab Lozada MD Available for consultation at ps1 all times . Disposition: 04/05/19 01:24 Discharged to Home. Impression: Diarrhea, unspecified. - Condition is Stable. - Discharge Instructions: Food Choices to Help Relieve Diarrhea, Adult, Diarrhea, Adult, Rehydration, Elderly. - Prescriptions for Zofran 4 mg Oral Tablet - take 1 tablet by ORAL route every 12 hours As needed; 6 tablet. - Medication Reconciliation Form, Thank You Letter, Antibiotic Education, Prescription Opioid Use form. - Follow up: Louise Shaffer MD; When: 2 - 3 days; Reason: Recheck today's complaints, Continuance of care, Re-evaluation by your physician. Follow up: Emergency Department; When: As needed; Reason: Worsening of condition. Signatures: Dis[facility] Danielle Munoz, SENSORY SCIENTIST-C SENSORY SCIENTIST-Csnw Kati Richardson, RN RN tl2 Myrna Mckeon, Fab Awad RN, ea, MD MD ps1 Chavez Poon, RN RN rr5 Corrections: (The following items were deleted from the chart) 00:24 00:21 Occult Blood+PA.LAB.BRZ ordered. [facility] EDCT 01:38 01:24 04/05/2019 01:24 Discharged to Home. Impression: Diarrhea, unspecified. Condition ea is Stable. Forms are Medication Reconciliation Form, Thank You Letter, Antibiotic Education, Prescription Opioid Use. Follow up: A Shaffer; When: 2 - 3 days; Reason: Recheck today's complaints, Continuance of care, Re-evaluation by your physician. Follow up: Emergency Department; When: As needed; Reason: Worsening of condition. snw
[2019-04-05 03:35] VITALS: TEMP 98.5
[2019-04-05 03:36] VITALS: BP 154/56; O2SAT 99
[2019-04-05 05:00] LABS: Urine Blood NEGATIVE (NEG); Urine Glucose NEGATIVE (NEG); Urine Protein TRACE (NEG); Urine Specific Gravity 1.025 (1.005-1.030)
== END 2019-04-05 01:38 | disposition home or self-care (01) ==
LOC: ER 21:35
DX: R19.7 Diarrhea, unspecified (principal); I10 Essential (primary) hypertension; E11.9 Type 2 diabetes mellitus without complications; E03.9 Hypothyroidism, unspecified; Z88.5 Allergy status to narcotic agent
CPT/HCPCS: 96361; 87045; 85025; 80048; 36415; 89055; 80076; 87046; 87493; 81003; 83690; 96374; 99284; J7030; J2405

== ENCOUNTER 2019-12-07 17:39 | Emergency (ER) | payer OTHER ==
--- OUTSIDE RECORDS SUMMARY | 2019-12-07 17:43 | XMS REPORT ---
:1945 [facility] [address] [place] [address] Dr. Parks [address] [place] [id number] Care Team Providers Name Role Phone DIEGO ALVARADO Unavailable Unavailable STEPHANIEPAUL German Unavailable Unavailable Problems This patient has no known problems. Allergies, Adverse Reactions, Alerts This patient has no known allergies or adverse reactions. Medications This patient has no known medications. Results Test Description Test Time Test Comments Text Results Atomic Results Result Comments RAD, SPINE, 2019-02-23 Reason for FINAL REPORT PATIENT ID: LUMBAR, 14:06:00 Exam:->Cervical [id number] Lumbar Spine - seven COMPLETE, WITH radiculopathy [...] L5, without segmental instability. Signed: Rex Stone MDRkenia Verified Date/Time: 02/23/2019 14:06:43 , SPINE, 2018-10-27 Reason for FINAL REPORT PATIENT ID: CERVICAL, 16:26:00 Exam:->cervical [id number] Cervical Spine, 7 COMPLETE, WITH radiculopathy, acute [...] hardware loosening or failure. Signed: Rex Stone [facility] Verified Date/Time: 10/27/2018 16:26:17 -GLUCOSE METER 2018-03-20 09:24:00 Test Item Value Reference Range Comments POC-GLUCOSE METER (BEAKER) (test 160 mg/dL 70-110 TESTED AT [facility] [address] lgvh=6003) [facility] [address] BUN AND [id number] 14:14:00 Test Item Value Reference Range Comments BLOOD UREA NITROGEN 12 mg/dL 7-21 (BEAKER) (test yqoi=592) CREATININE (BEAKER) (test 0.74 mg/dL 0.57-1.25 yhnu=314) EGFR (BEAKER) (test mL/min/1.73 sq m INSUFFICIENT CLINICAL DATA xfpm=1709) TO CALCULATE ESTIMATED GFR. [id number] 14:12:00 Test Item Value Reference Range Comments SODIUM (BEAKER) (test hmlo=291) 142 meq/L 136-145 POTASSIUM (BEAKER) (test ddtf=280) 4.8 meq/L 3.5-5.1 CHLORIDE (BEAKER) (test ucux=792) 106 meq/L 98-107 CO2 (BEAKER) (test nxzu=282) 27 meq/L 22-29 [id number] 14:12:00 Test Item Value Reference Range Comments GLUCOSE RANDOM (BEAKER) (test usks=807) 123 mg/dL 70-105 [id number] 13:28:00 Test Item Value Reference Range Comments HEMOGLOBIN (BEAKER) (test vtqp=151) 10.9 GM/DL 11.2-15.7 AFB CULTURE + [id number] 19:42:00 Test Item Value Reference Range Comments CULTURE (BEAKER) (test No acid-fast bacilli isolated wnsh=0873) in 42 days AFB SMEAR (BEAKER) (test No acid fast bacilli seen lasg=639) AFB CULTURE + [id number] 19:42:00 Test Item Value Reference Range Comments CULTURE (BEAKER) (test No acid-fast bacilli isolated ygwo=3371) in 42 days AFB SMEAR (BEAKER) (test No acid fast bacilli seen ngpt=622) AFB CULTURE + [id number] 19:42:00 Test Item Value Reference Range Comments CULTURE (BEAKER) (test No acid-fast bacilli isolated gzzz=5740) in 42 days AFB SMEAR (BEAKER) (test No acid fast bacilli seen euij=394) FUNGUS CULTURE + [id number] 07:50:00 Test Item Value Reference Range Comments CULTURE (BEAKER) (test No fungus isolated in 28 days csph=1524) FUNGUS SMEAR (BEAKER) (test No fungi seen awkm=7000) FUNGUS CULTURE + [id number] 07:50:00 Test Item Value Reference Range Comments CULTURE (BEAKER) (test No fungus isolated in 28 days zgli=6606) FUNGUS SMEAR (BEAKER) (test No fungi seen brqs=4997) FUNGUS CULTURE + [id number] 07:50:00 Test Item Value Reference Range Comments CULTURE (BEAKER) (test No fungus isolated in 28 days jjfg=1374) FUNGUS SMEAR (BEAKER) (test No fungi seen qcod=1426) ANAEROBIC [id number] 17:16:00 Test Item Value Reference Range Comments CULTURE (BEAKER) (test wowu=8558) No anaerobes isolated ANAEROBIC [id number] 15:25:00 Test Item Value Reference Range Comments CULTURE (BEAKER) (test eyfl=8712) No anaerobes isolated ANAEROBIC [id number] 15:25:00 Test Item Value Reference Range Comments CULTURE (BEAKER) (test oqqu=4325) No anaerobes isolated BODY FLUID CULTURE + GRAM [id number] 16:23:00 Test Item Value Reference Range Comments CULTURE (BEAKER) (test stnj=7126) No growth Received in Aerobic BTA bottle only.BLOOD [id number] 11:00:00 Test Item Value Reference Range Comments CULTURE (BEAKER) (test mndt=7876) No growth in 5 days BLOOD [id number] 11:00:00 Test Item Value Reference Range Comments CULTURE (BEAKER) (test rkrx=7919) No growth in 5 days ANAEROBIC [id number] 09:35:00 Test Item Value Reference Range Comments CULTURE (BEAKER) (test vwyp=5162) No anaerobes isolated Received in Anaerobic BTA bottle only.SURGICALLY OBTAINED CULTURE + GRAM [id number] 08:53:00 Test Item Value Reference Range Comments CULTURE (BEAKER) (test lbrr=2699) No growth GRAM STAIN RESULT (BEAKER) (test 2+ WBCs zbbt=1526) GRAM STAIN RESULT (BEAKER) (test No organisms seen nsba=66093) SURGICALLY OBTAINED CULTURE + GRAM [id number] 08:52:00 Test Item Value Reference Range Comments CULTURE (BEAKER) (test kjje=6981) No growth GRAM STAIN RESULT (BEAKER) (test 1+ WBCs dbpj=9877) GRAM STAIN RESULT (BEAKER) (test No organisms seen aulq=68198) SURGICALLY OBTAINED CULTURE + GRAM [id number] 08:46:00 Test Item Value Reference Range Comments CULTURE (BEAKER) (test zrkp=4695) No growth GRAM STAIN RESULT (BEAKER) (test 1+ WBCs izif=4711) GRAM STAIN RESULT (BEAKER) (test No organisms seen mnvz=87166) PERIPHERAL BLOOD SMEAR - PATHOLOGIST [id number] 12:29:00 Test Item Value Reference Range Comments RBC MORPHOLOGY (BEAKER) Hypochromasia (test mzxn=8524) RBC MORPHOLOGY (BEAKER) Anisocytosis (test kqks=01843) RBC MORPHOLOGY (BEAKER) Poikilocytosis (test baim=97162) RBC MORPHOLOGY (BEAKER) Polychromasia (test wnup=02732) WBC MORPHOLOGY (BEAKER) See comment (test awqu=7744) PLT MORPHOLOGY (BEAKER) Unremarkable (test gqup=3885) PERIPHERAL SMR REVIEW Hypochromic, normocytic anemia (BEAKER) (test fcux=5688) with mild anisopoikilocytosis with elliptocytes and spherocytes. Mild polychromasia. WBCs demonstrate rare myeloid precursors and lymphocytes with reactive/atypical forms. No blasts are identified. [id number] Lusi Jalloh MD (electronic (BEAKER) (test hntt=7158) signature) POCT-GLUCOSE [id number] 12:06:00 Test Item Value Reference Range Comments POC-GLUCOSE METER (BEAKER) 95 mg/dL 70-110 TESTED AT [address] (test xtch=4133) [place] [address] POCT-GLUCOSE [id number] 08:47:00 Test Item Value Reference Range Comments POC-GLUCOSE METER (BEAKER) 196 mg/dL 70-110 TESTED AT [address] (test nykk=0133) [place] [id number] BASIC METABOLIC [id number] 05:15:00 Test Item Value Reference Range Comments SODIUM (BEAKER) (test 138 meq/L 136-145 zsza=816) POTASSIUM (BEAKER) (test 3.8 meq/L 3.5-5.1 qxac=980) CHLORIDE (BEAKER) (test 105 meq/L 98-107 vrlb=189) CO2 (BEAKER) (test 25 meq/L 22-29 gxps=401) BLOOD UREA NITROGEN 12 mg/dL 7-21 (BEAKER) (test cyef=249) CREATININE (BEAKER) (test 0.68 mg/dL 0.57-1.25 bcpr=902) GLUCOSE RANDOM (BEAKER) 131 mg/dL 70-105 (test rhcv=353) CALCIUM (BEAKER) (test 8.6 mg/dL 8.4-10.2 wafy=543) EGFR (BEAKER) (test mL/min/1.73 sq m INSUFFICIENT CLINICAL DATA opre=3777) TO CALCULATE ESTIMATED GFR. CBC W/PLT COUNT & AUTO [id number] 04:48:00 Test Item Value Reference Range Comments WHITE BLOOD CELL COUNT (BEAKER) (test klqk=047) 5.5 K/ L 4.0-10.0 RED BLOOD CELL COUNT (BEAKER) (test oihy=993) 3.49 M/ L 4.00-5.00 HEMOGLOBIN (BEAKER) (test dhvw=282) 9.1 GM/DL 12.0-15.0 HEMATOCRIT (BEAKER) (test oqxr=042) 28.5 % 36.0-45.0 MEAN CORPUSCULAR VOLUME (BEAKER) (test hqfb=724) 81.8 fL 82.0-99.0 MEAN CORPUSCULAR HEMOGLOBIN (BEAKER) (test 26.1 pg 27.0-33.0 jopu=165) MEAN CORPUSCULAR HEMOGLOBIN CONC (BEAKER) (test 31.9 GM/DL 32.0-36.0 wqmk=530) RED CELL DISTRIBUTION WIDTH (BEAKER) (test 15.4 % 10.3-14.2 vhsn=495) PLATELET COUNT (BEAKER) (test vekl=525) 167 K/CU MM 150-430 MEAN PLATELET VOLUME (BEAKER) (test iagv=274) 8.2 fL 6.5-10.5 NUCLEATED RED BLOOD CELLS (BEAKER) (test 0 /100 WBC 0-0 femj=470) NEUTROPHILS RELATIVE PERCENT (BEAKER) (test 69 % vopp=055) LYMPHOCYTES RELATIVE PERCENT (BEAKER) (test 21 % zxii=110) MONOCYTES RELATIVE PERCENT (BEAKER) (test 7 % lteb=221) EOSINOPHILS RELATIVE PERCENT (BEAKER) (test 2 % brao=896) BASOPHILS RELATIVE PERCENT (BEAKER) (test 0 % wyfv=228) NEUTROPHILS ABSOLUTE COUNT (BEAKER) (test 3.75 K/ L 1.80-8.00 qygx=005) LYMPHOCYTES ABSOLUTE COUNT (BEAKER) (test 1.17 K/ L 1.48-4.50 aqne=224) MONOCYTES ABSOLUTE COUNT (BEAKER) (test 0.40 K/ L 0.00-1.30 aoon=733) EOSINOPHILS ABSOLUTE COUNT (BEAKER) (test 0.12 K/ L 0.00-0.50 irvq=211) BASOPHILS ABSOLUTE COUNT (BEAKER) (test 0.02 K/ L 0.00-0.20 gxvp=132) 0.00POCT-GLUCOSE [id number] 20:56:00 Test Item Value Reference Range Comments POC-GLUCOSE METER (BEAKER) 177 mg/dL 70-110 TESTED AT [address] (test aaag=2550) [facility] [address] POCT-GLUCOSE [id number] 16:56:00 Test Item Value Reference Range Comments POC-GLUCOSE METER (BEAKER) 215 mg/dL 70-110 TESTED AT [address] (test iibk=9964) [facility] [address] POCT-GLUCOSE [id number] 12:12:00 Test Item Value Reference Range Comments POC-GLUCOSE METER (BEAKER) 161 mg/dL 70-110 TESTED AT [address] (test ymqg=9557) [facility] [address] POCT-GLUCOSE [id number] 08:06:00 Test Item Value Reference Range Comments POC-GLUCOSE METER (BEAKER) 139 mg/dL 70-110 TESTED AT [address] (test olbk=4094) [facility] [address] CBC W/PLT COUNT & AUTO [id number] 05:38:00 Test Item Value Reference Range Comments WHITE BLOOD CELL COUNT (BEAKER) (test kdhn=264) 5.6 K/ L 4.0-10.0 RED BLOOD CELL COUNT (BEAKER) (test ugtq=890) 3.43 M/ L 4.00-5.00 HEMOGLOBIN (BEAKER) (test otfa=596) 9.0 GM/DL 12.0-15.0 HEMATOCRIT (BEAKER) (test smae=667) 28.2 % 36.0-45.0 MEAN CORPUSCULAR VOLUME (BEAKER) (test tlio=927) 82.2 fL 82.0-99.0 MEAN CORPUSCULAR HEMOGLOBIN (BEAKER) (test 26.1 pg 27.0-33.0 zogn=745) MEAN CORPUSCULAR HEMOGLOBIN CONC (BEAKER) (test 31.7 GM/DL 32.0-36.0 mzqn=978) RED CELL DISTRIBUTION WIDTH (BEAKER) (test 15.5 % 10.3-14.2 mkfm=737) PLATELET COUNT (BEAKER) (test ipum=859) 155 K/CU MM 150-430 MEAN PLATELET VOLUME (BEAKER) (test zatz=809) 8.5 fL 6.5-10.5 NUCLEATED RED BLOOD CELLS (BEAKER) (test 0 /100 WBC 0-0 pvdz=321) NEUTROPHILS RELATIVE PERCENT (BEAKER) (test 70 % mgdh=685) LYMPHOCYTES RELATIVE PERCENT (BEAKER) (test 19 % hfcp=331) MONOCYTES RELATIVE PERCENT (BEAKER) (test 9 % qslo=983) EOSINOPHILS RELATIVE PERCENT (BEAKER) (test 2 % kvov=301) BASOPHILS RELATIVE PERCENT (BEAKER) (test 1 % pcqo=445) NEUTROPHILS ABSOLUTE COUNT (BEAKER) (test 3.94 K/ L 1.80-8.00 tlsj=088) LYMPHOCYTES ABSOLUTE COUNT (BEAKER) (test 1.04 K/ L 1.48-4.50 jcoc=487) MONOCYTES ABSOLUTE COUNT (BEAKER) (test 0.48 K/ L 0.00-1.30 xnuk=628) EOSINOPHILS ABSOLUTE COUNT (BEAKER) (test 0.12 K/ L 0.00-0.50 aiwd=876) BASOPHILS ABSOLUTE COUNT (BEAKER) (test 0.03 K/ L 0.00-0.20 mjgg=179) 0.00BASIC METABOLIC [id number] 05:28:00 Test Item Value Reference Range Comments SODIUM (BEAKER) (test 139 meq/L 136-145 edzi=253) POTASSIUM (BEAKER) (test 3.8 meq/L 3.5-5.1 lltc=480) CHLORIDE (BEAKER) (test 107 meq/L 98-107 idro=554) CO2 (BEAKER) (test 26 meq/L 22-29 gppl=533) BLOOD UREA NITROGEN 9 mg/dL 7-21 (BEAKER) (test xtco=173) CREATININE (BEAKER) (test 0.63 mg/dL 0.57-1.25 jzzz=993) GLUCOSE RANDOM (BEAKER) 114 mg/dL 70-105 (test hbqw=138) CALCIUM (BEAKER) (test 8.7 mg/dL 8.4-10.2 ivdu=756) EGFR (BEAKER) (test mL/min/1.73 sq m INSUFFICIENT CLINICAL DATA ykhz=7272) TO CALCULATE ESTIMATED GFR. POCT-GLUCOSE [id number] 21:25:00 Test Item Value Reference Range Comments POC-GLUCOSE METER (BEAKER) 214 mg/dL 70-110 TESTED AT [facility] [address] (test dmlm=4075) [facility] [address] (MANUAL DIFFERENTIAL)2017-04-13 18:07:00 Test Item Value Reference Range Comments NEUTROPHILS - REL (DIFF) (BEAKER) (test oyjv=6253) 64 % LYMPHOCYTES - REL (DIFF) (BEAKER) (test ogwc=9016) 24 % MONOCYTES - REL (DIFF) (BEAKER) (test mgqf=0277) 11 % EOSINOPHILS - REL (DIFF) (BEAKER) (test rjqd=3956) 1 % NEUTROPHILS - ABS (DIFF) (BEAKER) (test bgrt=5540) 3.84 K/ L 1.80-8.00 LYMPHOCYTES - ABS (DIFF) (BEAKER) (test uykf=1798) 1.44 K/ L 1.48-4.50 MONOCYTES - ABS (DIFF) (BEAKER) (test hmln=4076) 0.66 K/ L 0.00-1.30 EOSINOPHILS - ABS (DIFF) (BEAKER) (test fuwr=1259) 0.06 K/ L 0.00-0.50 TOTAL COUNTED (BEAKER) (test jpeb=4122) 100 WBC MORPHOLOGY (BEAKER) (test qlgz=879) Normal PLT MORPHOLOGY (BEAKER) (test lvqw=881) Normal RBC MORPHOLOGY (BEAKER) (test zhir=014) Normal [id number] 17:42:00 Test Item Value Reference Range Comments FERRITIN (BEAKER) (test pkba=672) 269 ng/mL 5-275 Effective 09/14/2014: Reference Range ChangeNew: Male 5-275 Previous: Male 22-322 Female 5-275 Female 10-291HEPATITIS C [id number] 17:39:00 Test Item Value Reference Range Comments HEPATITIS C ANTIBODY (BEAKER) (test vgon=771) Nonreactive Nonreactive HIV-1 ANTIGEN WITH HIV-1/2 [id number] 17:39:00 Test Item Value Reference Range Comments HIV-1 ANTIGEN WITH HIV 1\\T\\2 ANTIBODY (2) Nonreactive Nonreactive (BEAKER) (test fowk=0666) CBC W/PLT COUNT & AUTO [id number] 17:19:00 Test Item Value Reference Range Comments WHITE BLOOD CELL COUNT (BEAKER) (test xlij=129) 6.0 K/ L 4.0-10.0 RED BLOOD CELL COUNT (BEAKER) (test szin=972) 3.52 M/ L 4.00-5.00 HEMOGLOBIN (BEAKER) (test pxhn=724) 9.0 GM/DL 12.0-15.0 HEMATOCRIT (BEAKER) (test zoey=231) 29.1 % 36.0-45.0 MEAN CORPUSCULAR VOLUME (BEAKER) (test rnpl=907) 82.5 fL 82.0-99.0 MEAN CORPUSCULAR HEMOGLOBIN (BEAKER) (test 25.7 pg 27.0-33.0 jtag=473) MEAN CORPUSCULAR HEMOGLOBIN CONC (BEAKER) (test 31.1 GM/DL 32.0-36.0 aayy=632) RED CELL DISTRIBUTION WIDTH (BEAKER) (test 15.8 % 10.3-14.2 fnlp=969) PLATELET COUNT (BEAKER) (test iuer=735) 151 K/CU MM 150-430 MEAN PLATELET VOLUME (BEAKER) (test rqyw=777) 8.4 fL 6.5-10.5 NUCLEATED RED BLOOD CELLS (BEAKER) (test 0 /100 WBC 0-0 afcc=987) NEUTROPHILS RELATIVE PERCENT (BEAKER) (test 70 % prlm=415) LYMPHOCYTES RELATIVE PERCENT (BEAKER) (test 19 % wclg=899) MONOCYTES RELATIVE PERCENT (BEAKER) (test 9 % ifvz=546) EOSINOPHILS RELATIVE PERCENT (BEAKER) (test 2 % mvoq=527) BASOPHILS RELATIVE PERCENT (BEAKER) (test 0 % hthd=526) NEUTROPHILS ABSOLUTE COUNT (BEAKER) (test 4.20 K/ L 1.80-8.00 nzag=607) LYMPHOCYTES ABSOLUTE COUNT (BEAKER) (test 1.16 K/ L 1.48-4.50 itlx=258) MONOCYTES ABSOLUTE COUNT (BEAKER) (test 0.52 K/ L 0.00-1.30 oqkg=335) EOSINOPHILS ABSOLUTE COUNT (BEAKER) (test 0.10 K/ L 0.00-0.50 ngjp=170) BASOPHILS ABSOLUTE COUNT (BEAKER) (test 0.03 K/ L 0.00-0.20 lbst=314) 0.00IRON, TIBC, % SAT. (WITHOUT FERRITIN)2017-04-13 17:18:00 Test Item Value Reference Range Comments IRON (BEAKER) (test uwmc=960) 10 ug/dL 40-160 TOTAL IRON BINDING CAPACITY (BEAKER) (test 185 ug/dL 250-450 bdsr=266) IRON % SATURATION (2) (BEAKER) (test rdeg=8006) 5 % 20-55 POCT-GLUCOSE [id number] 17:09:00 Test Item Value Reference Range Comments POC-GLUCOSE METER ([facility]) 138 mg/dL 70-110 TESTED AT [address] (test zahb=7700) [facility] [address] RETICULOCYTE [id number] 17:03:00 Test Item Value Reference Range Comments RETICULOCYTE COUNT PCT ([facility]) (test vovd=601) 1.3 % 0.4-2.9 POCT-GLUCOSE [id number] 12:10:00 Test Item Value Reference Range Comments POC-GLUCOSE METER ([facility]) 203 mg/dL 70-110 TESTED AT [address] (test ntoh=4596) [facility] [address] HEMOGLOBIN [id number] 11:08:00 Test Item Value Reference Range Comments HEMOGLOBIN A1C (AKER) (test xesd=991) 6.1 % 4.3-6.1 URINE [id number] 10:17:00 Test Item Value Reference Range Comments CULTURE (BEAKER) (test ryzy=1005) No growth GRAM STAIN RESULT (BEAKER) (test <1+ WBCs ipxr=4686) GRAM STAIN RESULT (AKER) (test No organisms seen cgfs=95866) VANCOMYCIN LEVEL, [id number] 09:45:00 Test Item Value Reference Range Comments VANCOMYCIN TROUGH (BEAKER) (test cjdr=099) 15.6 ug/mL 10.0-20.0 CBC W/PLT COUNT & AUTO [id number] 09:00:00 Test Item Value Reference Range Comments WHITE BLOOD CELL COUNT (BEAKER) (test ymjw=587) 5.5 K/ L 4.0-10.0 RED BLOOD CELL COUNT (BEAKER) (test lpgx=808) 3.34 M/ L 4.00-5.00 HEMOGLOBIN (BEAKER) (test ugly=541) 8.8 GM/DL 12.0-15.0 HEMATOCRIT (BEAKER) (test volu=547) 27.7 % 36.0-45.0 MEAN CORPUSCULAR VOLUME (BEAKER) (test hwna=688) 83.0 fL 82.0-99.0 MEAN CORPUSCULAR HEMOGLOBIN (BEAKER) (test 26.2 pg 27.0-33.0 lwbl=390) MEAN CORPUSCULAR HEMOGLOBIN CONC (BEAKER) (test 31.5 GM/DL 32.0-36.0 jdss=849) RED CELL DISTRIBUTION WIDTH (BEAKER) (test 15.7 % 10.3-14.2 qyeb=214) PLATELET COUNT (BEAKER) (test yqaa=163) 132 K/CU MM 150-430 MEAN PLATELET VOLUME (BEAKER) (test tvpz=040) 8.9 fL 6.5-10.5 NUCLEATED RED BLOOD CELLS (BEAKER) (test 0 /100 WBC 0-0 nqni=683) NEUTROPHILS RELATIVE PERCENT (BEAKER) (test 70 % zbao=713) LYMPHOCYTES RELATIVE PERCENT (BEAKER) (test 19 % leaj=626) MONOCYTES RELATIVE PERCENT (BEAKER) (test 10 % nskv=628) EOSINOPHILS RELATIVE PERCENT (BEAKER) (test 1 % whcj=435) BASOPHILS RELATIVE PERCENT (BEAKER) (test 0 % qhcf=116) NEUTROPHILS ABSOLUTE COUNT (BEAKER) (test 3.81 K/ L 1.80-8.00 hqiq=180) LYMPHOCYTES ABSOLUTE COUNT (BEAKER) (test 1.02 K/ L 1.48-4.50 seql=883) MONOCYTES ABSOLUTE COUNT (BEAKER) (test 0.56 K/ L 0.00-1.30 zdei=925) EOSINOPHILS ABSOLUTE COUNT (BEAKER) (test 0.06 K/ L 0.00-0.50 civa=884) BASOPHILS ABSOLUTE COUNT (BEAKER) (test 0.01 K/ L 0.00-0.20 svyy=597) 0.00POCT-GLUCOSE [id number] 08:21:00 Test Item Value Reference Range Comments POC-GLUCOSE METER (BEAKER) 144 mg/dL 70-110 TESTED AT [facility] [address] (test tcxm=0195) [facility] [address] BASIC METABOLIC [id number] 06:36:00 Test Item Value Reference Range Comments SODIUM (BEAKER) (test 139 meq/L 136-145 lydu=951) POTASSIUM (BEAKER) (test 3.7 meq/L 3.5-5.1 geww=793) CHLORIDE (BEAKER) (test 108 meq/L 98-107 kgxf=500) CO2 (BEAKER) (test 26 meq/L 22-29 xbgm=036) BLOOD UREA NITROGEN 10 mg/dL 7-21 (BEAKER) (test zabs=324) CREATININE (BEAKER) (test 0.68 mg/dL 0.57-1.25 pqvf=256) GLUCOSE RANDOM (BEAKER) 135 mg/dL 70-105 (test uscd=546) CALCIUM (BEAKER) (test 8.4 mg/dL 8.4-10.2 aham=660) EGFR (BEAKER) (test mL/min/1.73 sq m INSUFFICIENT CLINICAL DATA hjum=9536) TO CALCULATE ESTIMATED GFR. POCT-GLUCOSE [id number] 21:03:00 Test Item Value Reference Range Comments POC-GLUCOSE METER (BEAKER) 163 mg/dL 70-110 TESTED AT [facility] [address] (test mtdd=7982) [facility] [address] POCT-GLUCOSE [id number] 18:23:00 Test Item Value Reference Range Comments POC-GLUCOSE METER (BEAKER) 166 mg/dL 70-110 TESTED AT [address] (test lewo=3907) [facility] [address] TSH/FREE T4 IF [id number] 16:47:00 Test Item Value Reference Range Comments THYROID STIMULATING HORMONE (BEAKER) (test 1.79 uIU/mL 0.35-4.94 qsyg=502) TISSUE [id number] 15:11:00Surgical Pathology Report Case: [id number] Authorizing Provider: Radha Gallo, Collected: 04/11/2017 1415 [facility]ingLocation: [facility] Received: 2016 0820 SERVICES Pathologist: Mague Geiger MD Specimen: Explant RIGHT KNEE, REMOVAL OF ORTHOPEDIC HARDWARE: - ORTHOPEDIC HARDWARE, (GROSS DIAGNOSIS ONLY) Infected right knee Hardware The specimen is received in a fluidless container labeled with the patient's information and labeled "hardware" and consists of an orthopedic hardware spacer measuring 6.1 x 3.6 x 0.8 cm. The serial number is "[id number]". There is also metal hardware measuring 5 x 0.6 x 0.2 cm. The specimen is submitted for gross identification. CG/ewPOCT-GLUCOSE [id number] 12:42:00 Test Item Value Reference Range Comments POC-GLUCOSE METER (BEAKER) 145 mg/dL 70-110 TESTED AT [facility] [address] (test wexi=2165) [facility] [address] POCT-GLUCOSE [id number] 08:05:00 Test Item Value Reference Range Comments POC-GLUCOSE METER (BEAKER) 125 mg/dL 70-110 TESTED AT [facility] [address] (test sxun=5573) [facility] [address] BASIC METABOLIC [id number] 04:45:00 Test Item Value Reference Range Comments SODIUM (BEAKER) (test 137 meq/L 136-145 ygmw=403) POTASSIUM (BEAKER) (test 3.9 meq/L 3.5-5.1 gpto=435) CHLORIDE (BEAKER) (test 106 meq/L 98-107 bmmm=219) CO2 (BEAKER) (test 24 meq/L 22-29 alap=847) BLOOD UREA NITROGEN 11 mg/dL 7-21 (BEAKER) (test xbrr=660) CREATININE (BEAKER) (test 0.72 mg/dL 0.57-1.25 tajb=571) GLUCOSE RANDOM (BEAKER) 129 mg/dL 70-105 (test eres=852) CALCIUM (BEAKER) (test 8.4 mg/dL 8.4-10.2 tbjo=720) EGFR (BEAKER) (test mL/min/1.73 sq m INSUFFICIENT CLINICAL DATA rbgd=6621) TO CALCULATE ESTIMATED GFR. CBC W/PLT COUNT & AUTO [id number] 04:29:00 Test Item Value Reference Range Comments WHITE BLOOD CELL COUNT (BEAKER) (test hwdl=974) 8.8 K/ L 4.0-10.0 RED BLOOD CELL COUNT (BEAKER) (test clou=967) 3.65 M/ L 4.00-5.00 HEMOGLOBIN (BEAKER) (test wiei=996) 9.6 GM/DL 12.0-15.0 HEMATOCRIT (BEAKER) (test umei=647) 30.0 % 36.0-45.0 MEAN CORPUSCULAR VOLUME (BEAKER) (test nqrc=305) 82.3 fL 82.0-99.0 MEAN CORPUSCULAR HEMOGLOBIN (BEAKER) (test 26.2 pg 27.0-33.0 nwjz=352) MEAN CORPUSCULAR HEMOGLOBIN CONC (BEAKER) (test 31.8 GM/DL 32.0-36.0 rhwv=604) RED CELL DISTRIBUTION WIDTH (BEAKER) (test 15.7 % 10.3-14.2 vltc=813) PLATELET COUNT (BEAKER) (test lilc=951) 134 K/CU MM 150-430 MEAN PLATELET VOLUME (BEAKER) (test zsar=458) 8.0 fL 6.5-10.5 NUCLEATED RED BLOOD CELLS (BEAKER) (test 0 /100 WBC 0-0 zzum=046) NEUTROPHILS RELATIVE PERCENT (BEAKER) (test 81 % ksjl=875) LYMPHOCYTES RELATIVE PERCENT (BEAKER) (test 12 % cclo=601) MONOCYTES RELATIVE PERCENT (BEAKER) (test 6 % pdoi=875) EOSINOPHILS RELATIVE PERCENT (BEAKER) (test 1 % izgj=247) BASOPHILS RELATIVE PERCENT (BEAKER) (test 0 % tamz=145) NEUTROPHILS ABSOLUTE COUNT (BEAKER) (test 7.16 K/ L 1.80-8.00 arbf=476) LYMPHOCYTES ABSOLUTE COUNT (BEAKER) (test 1.04 K/ L 1.48-4.50 svih=091) MONOCYTES ABSOLUTE COUNT (BEAKER) (test 0.53 K/ L 0.00-1.30 eabb=020) EOSINOPHILS ABSOLUTE COUNT (BEAKER) (test 0.06 K/ L 0.00-0.50 nomn=333) BASOPHILS ABSOLUTE COUNT (BEAKER) (test 0.03 K/ L 0.00-0.20 jxrg=645) 0.00POCT-GLUCOSE [id number] 21:07:00 Test Item Value Reference Range Comments POC-GLUCOSE METER (BEAKER) 212 mg/dL 70-110 TESTED AT [address] (test vcmp=0791) [facility] [address] POCT-GLUCOSE [id number] 16:46:00 Test Item Value Reference Range Comments POC-GLUCOSE METER (BEAKER) 127 mg/dL 70-110 TESTED AT [address] (test evsn=9923) [facility] [address] URINALYSIS W/ [id number] 12:56:00 Test Item Value Reference Range Comments COLOR (BEAKER) (test xqfs=057) Light Yellow CLARITY (BEAKER) (test lofq=024) Clear SPECIFIC GRAVITY UA (BEAKER) (test etvh=269) 1.007 1.001-1.035 PH UA (BEAKER) (test lyub=272) 6.0 5.0-8.0 PROTEIN UA (BEAKER) (test uqpx=709) Negative Negative GLUCOSE UA (BEAKER) (test novd=225) Negative Negative KETONES UA (BEAKER) (test dvpj=615) Trace Negative BILIRUBIN UA (BEAKER) (test aukg=017) Negative Negative BLOOD UA (BEAKER) (test ibvl=839) Negative Negative NITRITE UA (BEAKER) (test hbrd=523) Negative Negative LEUKOCYTE ESTERASE UA (BEAKER) (test qkvs=855) Negative Negative UROBILINOGEN UA (BEAKER) (test skou=157) 0.2 mg/dL 0.2-1.0 RBC UA (BEAKER) (test seuu=158) < /HPF WBC UA (BEAKER) (test bcvt=561) 2 /HPF MUCUS (BEAKER) (test ydxg=7454) Rare SQUAMOUS EPITHELIAL (BEAKER) (test cddz=584) 1 /HPF SOURCE(BEAKER) (test riou=5823) BODY FLUID [id number] 12:35:00 Test Item Value Reference Range Comments CRYSTALS, BODY FLUID (BEAKER) No crystals seen. (test dkng=6131) [id number]-481 (BEAKER) Luis Jalloh MD (electronic (test jdpo=2807) signature) POCT-GLUCOSE [id number] 12:34:00 Test Item Value Reference Range Comments POC-GLUCOSE METER (BEAKER) 122 mg/dL 70-110 TESTED AT [facility] [address] [place] [address] (test amml=3749) [facility] [address] POCT-GLUCOSE [id number] 08:29:00 Test Item Value Reference Range Comments POC-GLUCOSE METER (BEAKER) 158 mg/dL 70-110 TESTED AT [address] [address] (test zmdk=0799) [facility] [address] BODY FLUID CELL COUNT WITH [id number] 07:59:00 Test Item Value Reference Range Comments APPEARANCE FLUID (BEAKER) (test ztfa=409) Cloudy Clear COLOR FLUID (BEAKER) (test wswu=638) Yellow Colorless, Straw RBC FLUID (BEAKER) (test ycuj=217) 3223 /cu mm <=1 ADJUSTED WBC FLUID (BEAKER) (test pzvw=8603) 60514 /cu mm <=5 LINING CELLS (BEAKER) (test uqsx=1920) 0 /cu mm <=1 NEUTROPHILS FLUID (BEAKER) (test ishj=9025) 86 % LYMPHS FLUID (BEAKER) (test dinw=068) 6 % MONO/MACROPHAGE FLUID (BEAKER) (test yanx=894) 8 % EOSINOPHILS FLUID (BEAKER) (test gnet=762) 0 % BASO FLUID (BEAKER) (test jdqw=048) 0 % CONTAINER BODY FLUID (BEAKER) (test dyme=1463) EDTA Tube BASIC METABOLIC [id number] 05:09:00 Test Item Value Reference Range Comments SODIUM (BEAKER) (test 138 meq/L 136-145 xpec=762) POTASSIUM (BEAKER) (test 3.7 meq/L 3.5-5.1 cbep=819) CHLORIDE (BEAKER) (test 103 meq/L 98-107 bqyt=883) CO2 (BEAKER) (test 26 meq/L 22-29 yvdt=625) BLOOD UREA NITROGEN 12 mg/dL 7-21 (BEAKER) (test rvka=411) CREATININE (BEAKER) (test 0.72 mg/dL 0.57-1.25 aqhz=489) GLUCOSE RANDOM (BEAKER) 124 mg/dL 70-105 (test vkvo=747) CALCIUM (BEAKER) (test 9.4 mg/dL 8.4-10.2 dhat=502) EGFR (BEAKER) (test mL/min/1.73 sq m INSUFFICIENT CLINICAL DATA uasx=8317) TO CALCULATE ESTIMATED GFR. CBC W/PLT COUNT & AUTO [id number] 05:06:00 Test Item Value Reference Range Comments WHITE BLOOD CELL COUNT (BEAKER) (test mtug=630) 8.7 K/ L 4.0-10.0 RED BLOOD CELL COUNT (BEAKER) (test dnjn=044) 4.31 M/ L 4.00-5.00 HEMOGLOBIN (BEAKER) (test shgt=532) 11.4 GM/DL 12.0-15.0 HEMATOCRIT (BEAKER) (test rovv=008) 34.9 % 36.0-45.0 MEAN CORPUSCULAR VOLUME (BEAKER) (test rhuf=261) 80.9 fL 82.0-99.0 MEAN CORPUSCULAR HEMOGLOBIN (BEAKER) (test 26.4 pg 27.0-33.0 hzxa=607) MEAN CORPUSCULAR HEMOGLOBIN CONC (BEAKER) (test 32.6 GM/DL 32.0-36.0 txxj=647) RED CELL DISTRIBUTION WIDTH (BEAKER) (test 16.1 % 10.3-14.2 ejix=771) PLATELET COUNT (BEAKER) (test dlia=779) 153 K/CU MM 150-430 MEAN PLATELET VOLUME (BEAKER) (test kwpq=614) 8.3 fL 6.5-10.5 NUCLEATED RED BLOOD CELLS (BEAKER) (test 0 /100 WBC 0-0 xugt=005) NEUTROPHILS RELATIVE PERCENT (BEAKER) (test 70 % jhyu=446) LYMPHOCYTES RELATIVE PERCENT (BEAKER) (test 20 % xhbf=209) MONOCYTES RELATIVE PERCENT (BEAKER) (test 9 % zrqi=351) EOSINOPHILS RELATIVE PERCENT (BEAKER) (test 1 % xpuw=513) BASOPHILS RELATIVE PERCENT (BEAKER) (test 0 % fdrs=194) NEUTROPHILS ABSOLUTE COUNT (BEAKER) (test 6.08 K/ L 1.80-8.00 lkko=644) LYMPHOCYTES ABSOLUTE COUNT (BEAKER) (test 1.70 K/ L 1.48-4.50 kstq=447) MONOCYTES ABSOLUTE COUNT (BEAKER) (test 0.81 K/ L 0.00-1.30 gvnv=548) EOSINOPHILS ABSOLUTE COUNT (BEAKER) (test 0.09 K/ L 0.00-0.50 qltc=224) BASOPHILS ABSOLUTE COUNT (BEAKER) (test 0.02 K/ L 0.00-0.20 vonf=976) 0.00
[2019-12-07] MEDS ORDERED: METOCLOPRAMIDE 10 MG/2mL INJ ONE (19:22)
[2019-12-07] MEDS ORDERED: KETOROLAC 30 MG/ML INJ ONE (19:22)
[2019-12-07] MEDS ORDERED: NA CHLORIDE 0.9% 1,000 ML ONE (19:22)
[2019-12-07] MEDS ORDERED: DIPHENHYDRAMINE 50 MG/ML VIAL ONE (19:22)
[2019-12-07 19:26] LABS: Absolute Lymphocytes (CBC) 1.5 K/uL (0.7-4.9); Basophils % 0.5 % (0-1.3); Hematocrit 35.9 % (36.0-45.0); Lymphocytes % 22.2 % (15.3-44.8); MPV 8.8 fL (7.6-11.3); RBC Red Blood Cell Count 4.62 M/uL (3.86-4.86)
[2019-12-07 19:29] LABS: Protime INR 0.91
[2019-12-07 19:44] LABS: ALT/SGPT 22 U/L (12-78); AST/SGOT 14 U/L (15-37); Albumin 3.4 g/dL (3.4-5.0); Alkaline Phosphatase 81 U/L (45-117); BUN Blood Urea Nitrogen 15 mg/dL (7-18); Bicarbonate 29 mmol/L (21-32); Bilirubin Direct < 0.1 mg/dL (0-0.2); Bilirubin Total 0.1 mg/dL (0.2-1.0); Glucose Level 175 mg/dL (74-106); NT PRO-BNP 71 pg/mL (<450); Protein, Total 7.2 g/dL (6.4-8.2); Sodium Level 143 mmol/L (136-145); Troponin I < 0.02 ng/mL (0.0-0.045)
--- NOTE | 2019-12-07 20:11 | RAD REPORT ---
EXAM DESCRIPTION: RAD - Chest Single View - 12/07/2019 7:57 pm CLINICAL HISTORY: CONGESTION COMPARISON: Chest Single View dated 04/10/2017; CHEST PA AND LAT 2 VIEW dated 07/14/2015 TECHNIQUE: AP portable chest image was obtained 12/07/2019 7:57 pm . FINDINGS: Clear of a peripheral mass or consolidation. Shallow inspiration accentuates interstitial pattern potentially masking early interstitial edema or infiltrate. Granuloma in the lateral left bas e is not changed. Heart size magnified by shallow inspiration. Vasculature is mildly prominent. No me asurable pleural effusion and no pneumothorax. No acute bony abnormality seen. No acute aortic findin gs suspected. IMPRESSION: No focal mass or consolidation. Heart, vasculature and lung markings are all slightly increased from comparison. This may be due to a more shallow inspiratory effort. However, a mild failure or volume overload should be considered.
[2019-12-07 20:33] LABS: Urine Blood NEGATIVE (NEG); Urine Glucose TRACE (NEG); Urine Protein NEGATIVE (NEG); Urine Specific Gravity 1.025 (1.005-1.030)
--- NOTE | 2019-12-07 20:37 | RAD REPORT ---
EXAM DESCRIPTION: CT - Head Brain Wo Cont - 12/07/2019 8:25 pm CLINICAL HISTORY: HEADACHE, hypertension COMPARISON: Facial Bones W/ Mpr dated 12/31/2016 TECHNIQUE: Axial 5 mm thick images of the head were obtained without IV contrast. All CT scans are performed using dose optimization technique as appropriate and may include automated exposure control or mA/KV adjustment according to patient size. FINDINGS: No intracranial hemorrhage, mass, edema or shift of mid-line structures. No acute infarcti on changes seen. Mild atrophy changes are present. 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 Ventricles are in proportion to volume loss. Chronic ischemic changes are mild. Mastoid air cells and visualized portions of the paranasal sinuses are clear. No acute bony findings. IMPRESSION: No acute intracranial finding identifiable. Mild atrophy and minimal chronic ischemic change noted.
[2019-12-07] MEDS ORDERED: LABETALOL 20 MG/4ML SYRINGE IV ONE (20:55)
--- NOTE | 2019-12-07 21:30 | EDPHYS ---
Physician Documentation [facility] Name: Sharon Delgadillo Age: 74 yrs Sex: Female : 1945 Arrival Date: 12/07/2019 Time: 17:42 Bed 27 Private MD: Louise Shaffer C ED Physician Marco Antonio Menezes HPI: 12/07 18:48 This 74 yrs old Female presents to ER via Wheelchair with complaints of High ma2 Blood Pressure, Dizziness, Weakness. 18:48 The patient has elevated blood pressure and discovered this at home. Onset: The ma2 symptoms/episode began/occurred gradually, 2 day(s) ago. Associated signs and symptoms: Pertinent negatives: dizziness, headache, nausea, visual changes. Severity of symptoms: At its worst the blood pressure was mild, in the emergency department the blood pressure is unchanged. The patient has not experienced similar symptoms in the past. gradual headache . Historical: - Allergies: 18:00 Morphine; ca1 - Home Meds: 18:00 metformin 500 mg Oral tr24 1 tab once daily [Active]; celecoxib 200 mg Oral cap 1 cap ca1 once daily [Active]; losartan 50 mg oral tab 1 tab once daily [Active]; levothyroxine 75 mcg tab 1 tab once daily [Active]; tamsulosin 0.4 mg oral cp24 1 cap once daily [Active]; duloxetine oral oral [Active]; omeprazole 40 mg Oral cpDR 1 cap once daily [Active]; gabapentin 100 mg oral cap 1 caps 3 times per day [Active]; Ferrocite 324 mg (106 mg iron) oral tab daily [Active]; - PMHx: 18:00 COPD; Diabetes - NIDDM; Hypertension; Hypothyroidism; ca1 - PSHx: 18:00 Knee surgery; Cholecystectomy; Appendectomy; Hysterectomy; Shoulder Surgery L; ca1 - Immunization history:: Adult Immunizations up to date, Pneumococcal vaccine is up to date, Flu vaccine is up to date. - Coronavirus screen:: The patient has NOT traveled to [place], [place], or [place] in the past 14 days. The patient has NOT had contact with known/suspected case of Coronavirus?. - Social history:: Patient/guardian denies using alcohol, street drugs, The patient lives with family, Smoking status: Patient denies any tobacco usage or history of. - Family history:: not pertinent. - Ebola Screening: : Patient negative for fever greater than or equal to 101.5 degrees Fahrenheit, and additional compatible Ebola Virus Disease symptoms Patient denies exposure to infectious person Patient denies travel to an Ebola-affected area in the 21 days before illness onset No symptoms or risks identified at this time. ROS: 18:48 Constitutional: Negative for fever, chills, and weight loss. ma2 18:48 All other systems are negative. Exam: 18:48 Constitutional: This is a well developed, well nourished patient who is awake, alert, ma2 and in no acute distress. Head/Face: Normocephalic, atraumatic. Eyes: Pupils equal round and reactive to light, extra-ocular motions intact. Lids and lashes normal. Conjunctiva and sclera are non-icteric and not injected. Cornea within normal limits. Periorbital areas with no swelling, redness, or edema. ENT: Nares patent. No nasal discharge, no septal abnormalities noted. Tympanic membranes are normal and external auditory canals are clear. Oropharynx with no redness, swelling, or masses, exudates, or evidence of obstruction, uvula midline. Mucous membranes moist. Neck: Trachea midline, no thyromegaly or masses palpated, and no cervical lymphadenopathy. Supple, full range of motion without nuchal rigidity, or vertebral point tenderness. No Meningismus. Chest/axilla: Normal chest wall appearance and motion. Nontender with no deformity. No lesions are appreciated. Cardiovascular: Regular rate and rhythm with a normal S1 and S2. No gallops, murmurs, or rubs. Normal PMI, no JVD. No pulse deficits. Respiratory: Lungs have equal breath sounds bilaterally, clear to auscultation and percussion. No rales, rhonchi or wheezes noted. No increased work of breathing, no retractions or nasal flaring. Abdomen/GI: Soft, non-tender, with normal bowel sounds. No distension or tympany. No guarding or rebound. No evidence of tenderness throughout. MS/ Extremity: Pulses equal, no cyanosis. Neurovascular intact. Full, normal range of motion. Neuro: Awake and alert, GCS 15, oriented to person, place, time, and situation. Cranial nerves II-XII grossly intact. Motor strength 5/5 in all extremities. Sensory grossly intact. Cerebellar exam normal. Normal gait. Vital Signs: 18:00 BP 185 / 77; Pulse 73; Resp 16 S; Temp 98.4(O); Pulse Ox 99% on R/A; Weight 92.53 kg ca1 (R); Height 5 ft. 9 in. (175.26 cm) (R); 19:30 BP 189 / 70; Pulse 77; Resp 18; Pulse Ox 98% on R/A; wh 21:00 BP 175 / 62; Pulse 80; Resp 18; Pulse Ox 98% on R/A; wh 18:00 Body Mass Index 30.13 (92.53 kg, 175.26 cm) ca1 MDM: 18:21 Patient medically screened. wv2 18:48 Differential diagnosis: intracerebral hemorrhage, asymptomatic htn. Data reviewed: [facility] vital signs, nurses notes. Counseling: I had a detailed discussion with the patient and/or guardian regarding: the historical points, exam findings, and any diagnostic results supporting the discharge/admit diagnosis, the presence of at least one elevated blood pressure reading (>120/80) during this emergency department visit, the need for outpatient follow up. Response to treatment: the patient's symptoms have markedly improved after treatment. 12/07 18:42 Order name: Basic Metabolic Panel [facility] 12/07 18:42 Order name: CBC with Diff [facility] 12/07 18:42 Order name: LFT's [facility] 12/07 18:42 Order name: Magnesium [facility] 12/07 18:42 Order name: NT PRO-BNP [facility] 12/07 18:42 Order name: PT-INR [facility] 12/07 18:42 Order name: Troponin (emerg Dept Use Only) [facility] 12/07 19:45 Order name: Basic Metabolic Panel; Complete Time: 20:27 EDMS 12/07 19:45 Order name: Liver (Hepatic) Function; Complete Time: 20:27 EDMS 12/07 19:45 Order name: Troponin I; Complete Time: 20:27 EDMS 12/07 19:45 Order name: NT PRO-BNP; Complete Time: 20:27 EDMS 12/07 19:46 Order name: Magnesium; Complete Time: 20:27 EDMS 12/07 19:46 Order name: CBC with Automated Diff; Complete Time: 20:27 EDMS 12/07 19:46 Order name: Protime (+INR); Complete Time: 20:27 EDMS 12/07 18:42 Order name: XRAY Chest (1 view) [facility] 12/07 18:42 Order name: EKG; Complete Time: 19:42 [facility] 12/07 18:42 Order name: Cardiac monitoring; Complete Time: 19:14 [facility] 12/07 18:42 Order name: EKG - Nurse/Tech; Complete Time: 19:14 [facility] 12/07 18:42 Order name: IV Saline Lock; Complete Time: 19:14 [facility] 12/07 18:42 Order name: CT Head Brain wo Cont [facility] 12/07 20:24 Order name: Urine Dipstick--Ancillary (enter results) [facility] 12/07 20:24 Order name: Urine --Ancillary (enter results) [facility] 12/07 20:26 Order name: RAD; Complete Time: 20:27 EDMS 12/07 20:34 Order name: Urine Dipstick-Ancillary; Complete Time: 20:34 EDMS 12/07 21:01 Order name: CT; Complete Time: 21:05 [facility] 12/07 18:42 Order name: Labs collected and sent; Complete Time: 19:14 [facility] 12/07 18:42 Order name: O2 Per Protocol; Complete Time: 19:14 [facility] 12/07 18:42 Order name: O2 Sat Monitoring; Complete Time: 19:15 [facility] 12/07 18:42 Order name: Urine Dipstick-Ancillary (obtain specimen); Complete Time: 20:21 ma2 Administered Medications: 19:14 Drug: NS 0.9% 1000 ml Route: IV; Rate: 1 bolus; Site: left antecubital; 21:34 Follow up: Response: No adverse reaction; IV Status: Completed infusion 19:16 Drug: TORadol 30 mg Route: IVP; Site: left antecubital; 21:34 Follow up: Response: No adverse reaction; Pain is decreased 19:18 Drug: Benadryl 50 mg Route: IVP; Site: left antecubital; 21:34 Follow up: Response: No adverse reaction 19:20 Drug: Reglan 10 mg Route: IVP; Site: left antecubital; 21:34 Follow up: Response: No adverse reaction 20:54 Drug: Labetalol 10 mg Route: IVP; Site: left antecubital; 21:34 Follow up: Response: No adverse reaction; Blood pressure is lowered Disposition: 12/07/19 21:15 Discharged to Home. Impression: Essential (primary) hypertension. - Condition is Stable. - Discharge Instructions: Hypertension, [id number]. - Prescriptions for Reglan 10 mg Oral Tablet - take 1 tablet by ORAL route every 6 hours . take 30 minutes before meals and at bedtime; 100 tablet. - Medication Reconciliation Form, Thank You Letter, Antibiotic Education, Prescription Opioid Use form. - Follow up: Private Physician; When: Tomorrow; Reason: Continuance of care. Signatures: Dispatcher [employer] EDMS Alvarez Magdielgeorgi Marco Antonio Menezes MD MD ma2 Helen Christie RN RN ca1 Corrections: (The following items were deleted from the chart) 21:39 21:15 12/07/2019 21:15 Discharged to Home. Impression: Essential (primary) hypertension. Condition is Stable. Discharge Instructions: Hypertension. Prescriptions for Reglan 10 mg Oral Tablet - take 1 tablet by ORAL route every 6 hours . take 30 minutes before meals and at bedtime; 100 tablet. and Forms are Medication Reconciliation Form, Thank You Letter, Antibiotic Education, Prescription Opioid Use. Follow up: Private Physician; When: Tomorrow; Reason: Continuance of care. ferny
--- NOTE | 2019-12-07 21:30 | ER ---
Nurse's Notes [facility] Name: Sharon Delgadillo Age: 74 yrs Sex: Female : 1945 Arrival Date: 12/07/2019 Time: 17:42 Bed 27 Private MD: Louise Shaffer C Diagnosis: Essential (primary) hypertension Presentation: 12/07 17:54 Presenting complaint: Patient states: BP today 222/80. Reports headache, dizziness and ca1 nausea. Called Dr. Shaffer and was instructed to come to the ER. Transition of care: patient was not received from another setting of care. Onset of symptoms was December 07, 2019. Risk Assessment: Do you want to hurt yourself or someone else? Patient reports no desire to harm self or others. Initial Sepsis Screen: Does the patient meet any 2 criteria? No. Patient's initial sepsis screen is negative. Does the patient have a suspected source of infection? No. Patient's initial sepsis screen is negative. Care prior to arrival: None. 17:54 Method Of Arrival: Wheelchair ca1 17:54 Acuity: NELIDA 3 ca1 Triage Assessment: 19:00 Pain: Pain began suddenly, Also complains of no other associated symptoms. 19:00 Headache History: Denies prior headaches. Historical: - Allergies: 18:00 Morphine; ca1 - Home Meds: 18:00 metformin 500 mg Oral tr24 1 tab once daily [Active]; celecoxib 200 mg Oral cap 1 cap ca1 once daily [Active]; losartan 50 mg oral tab 1 tab once daily [Active]; levothyroxine 75 mcg tab 1 tab once daily [Active]; tamsulosin 0.4 mg oral cp24 1 cap once daily [Active]; duloxetine oral oral [Active]; omeprazole 40 mg Oral cpDR 1 cap once daily [Active]; gabapentin 100 mg oral cap 1 caps 3 times per day [Active]; Ferrocite 324 mg (106 mg iron) oral tab daily [Active]; - PMHx: 18:00 COPD; Diabetes - NIDDM; Hypertension; Hypothyroidism; ca1 - PSHx: 18:00 Knee surgery; Cholecystectomy; Appendectomy; Hysterectomy; Shoulder Surgery L; ca1 - Immunization history:: Adult Immunizations up to date, Pneumococcal vaccine is up to date, Flu vaccine is up to date. - Coronavirus screen:: The patient has NOT traveled to [place], [place], or [place] in the past 14 days. The patient has NOT had contact with known/suspected case of Coronavirus?. - Social history:: Patient/guardian denies using alcohol, street drugs, The patient lives with family, Smoking status: Patient denies any tobacco usage or history of. - Family history:: not pertinent. - Ebola Screening: : Patient negative for fever greater than or equal to 101.5 degrees Fahrenheit, and additional compatible Ebola Virus Disease symptoms Patient denies exposure to infectious person Patient denies travel to an Ebola-affected area in the 21 days before illness onset No symptoms or risks identified at this time. Screenin:00 Abuse screen: Denies threats or abuse. Denies injuries from another. Nutritional wh screening: No deficits noted. Tuberculosis screening: No symptoms or risk factors identified. Fall Risk None identified. Assessment: 18:50 General: Appears in no apparent distress. Behavior is calm, cooperative, appropriate wh for age. Pain: Complains of pain in head ache Pain does not radiate. Pain currently is 6 out of 10 on a pain scale. Quality of pain is described as throbbing. Neuro: Level of Consciousness is awake, alert, obeys commands, Oriented to person, place, time, situation, Appropriate for age French Polisher are equal bilaterally Moves all extremities. Gait is steady, Speech is normal, Facial symmetry appears normal, Pupils are PERRLA, Reports headache in right occipital area. Cardiovascular: Heart tones S1 S2. Respiratory: Airway is patent Respiratory effort is even, unlabored, Respiratory pattern is regular, symmetrical, Breath sounds are clear bilaterally. GI: Abdomen is flat, non-distended. : No signs and/or symptoms were reported regarding the genitourinary system. EENT: No signs and/or symptoms were reported regarding the EENT system. Derm: Skin is intact, is healthy with good turgor, Skin is pink, warm \T\ dry. normal. Musculoskeletal: Circulation, motion, and sensation intact. 20:05 Reassessment: Patient appears in no apparent distress at this time. No changes from wh previously documented assessment. Patient and/or family updated on plan of care and expected duration. Pain level reassessed. Patient is alert, oriented x 3, equal unlabored respirations, skin warm/dry/pink. 21:08 Reassessment: Patient appears in no apparent distress at this time. No changes from previously documented assessment. Patient and/or family updated on plan of care and expected duration. Pain level reassessed. Patient is alert, oriented x 3, equal unlabored respirations, skin warm/dry/pink. Patient states feeling better. Patient states symptoms have improved. Vital Signs: 18:00 BP 185 / 77; Pulse 73; Resp 16 S; Temp 98.4(O); Pulse Ox 99% on R/A; Weight 92.53 kg ca1 (R); Height 5 ft. 9 in. (175.26 cm) (R); 19:30 BP 189 / 70; Pulse 77; Resp 18; Pulse Ox 98% on R/A; wh 21:00 BP 175 / 62; Pulse 80; Resp 18; Pulse Ox 98% on R/A; wh 18:00 Body Mass Index 30.13 (92.53 kg, 175.26 cm) ca1 ED Course: 17:42 Patient arrived in ED. rg4 17:43 Louise Shaffer MD is Private Physician. rg4 17:56 Triage completed. ca1 18:00 Arm band placed on right wrist. EKG completed in triage. Results shown to MD. ca1 18:21 Marco Antonio Menezes MD is Attending Physician. ma2 18:28 Will Alvarez is Primary Nurse. wh 19:00 Patient has correct armband on for positive identification. Bed in low position. Call light in reach. Side rails up X 1. 19:00 rehab director on. Pulse ox on. NIBP on. 19:10 Initial lab(s) drawn, by wi, sent to lab. EKG done, by ED staff. Inserted saline lock: lt1 22 gauge in left antecubital area, using aseptic technique. 21:35 No provider procedures requiring assistance completed. IV discontinued, intact, bleeding controlled, No redness/swelling at site. Administered Medications: 19:14 Drug: NS 0.9% 1000 ml Route: IV; Rate: 1 bolus; Site: left antecubital; 21:34 Follow up: Response: No adverse reaction; IV Status: Completed infusion 19:16 Drug: TORadol 30 mg Route: IVP; Site: left antecubital; 21:34 Follow up: Response: No adverse reaction; Pain is decreased 19:18 Drug: Benadryl 50 mg Route: IVP; Site: left antecubital; 21:34 Follow up: Response: No adverse reaction 19:20 Drug: Reglan 10 mg Route: IVP; Site: left antecubital; 21:34 Follow up: Response: No adverse reaction 20:54 Drug: Labetalol 10 mg Route: IVP; Site: left antecubital; 21:34 Follow up: Response: No adverse reaction; Blood pressure is lowered Outcome: 21:15 Discharge ordered by . ferny 21:35 Discharged to home ambulatory, with family. 21:35 Condition: stable 21:35 Discharge instructions given to patient, family, Instructed on discharge instructions, follow up and referral plans. medication usage, POC Demonstrated understanding of instructions, follow-up care, medications, POC Prescriptions given X 1. 21:39 Patient left the ED. Signatures: Jenny Alarcon rg4 Kim, Will Marco Antonio Menezes MD MD ma2 Helen Christie RN RN ca1 Alyssa Howard lt1 Corrections: (The following items were deleted from the chart) 21:12 19:00 Pulse ox on. NIBP on. [facility]
--- NOTE | 2019-12-08 08:47 | EKG ---
Test Date: 2019-12-07 Test Time: 18:54:18 Electronics Engineer: CAESAR MEASUREMENT RESULTS: Intervals: Rate: 73 NC: 130 QRSD: 128 QT: 426 QTc: 469 [place]: P: 67 NC: 130 QRS: 23 T: 43 INTERPRETIVE STATEMENTS: Normal sinus rhythm Right bundle branch block Abnormal ECG Compared to ECG 04/10/2017 17:22:51 Myocardial infarct finding no longer present Electronically Signed On 12-08-19 08:46:28 MITER GRINDER OPERATOR by Henrique Hurst
[2019-12-09 22:31] VITALS: TEMP 98.4
[2019-12-09 22:32] VITALS: O2SAT 98
[2019-12-09 22:33] VITALS: BP 175/62
== END 2019-12-07 21:39 | disposition home or self-care (01) ==
LOC: ER 17:39
DX: I10 Essential (primary) hypertension (principal); E03.9 Hypothyroidism, unspecified; E11.9 Type 2 diabetes mellitus without complications; J44.9 Chronic obstructive pulmonary disease, unspecified; Z88.5 Allergy status to narcotic agent
CPT/HCPCS: 96361; 93005; 85025; 80048; 36415; 83735; 85610; 80076; 81003; 84484; 83880; 70450; 71045; 96375; 96374; 99284; J2765; J1200; J7030

== ENCOUNTER → 2022-03-14 | Day surgery (SDC) | payer OTHER ==
[2012-04-04 15:59] VITALS: BP 128/52
--- NOTE | 2022-03-14 12:13 | RAD REPORT ---
EXAM DESCRIPTION: US - Breast Core BX w/US Guidance - 03/14/2022 11:29 am CLINICAL HISTORY: ICD R 92.8 COMPARISON: ultrasound March 02, 2022 TECHNIQUE: The risks, benefits alternatives to the procedure were explained to the patient and infor med consent obtained. Skin, subcutaneous and breast tissues anesthetized with lidocaine. Under sonographic guidance, three 14 gauge vacuum assisted core biopsies of the mass within the upper outer rightbreast obtained. 2 centimeter specimens taken. Tissue given to pathology. Subsequently a localizing clip was placed into the mass. Patient experienced no immediate complication IMPRESSION: Vacuum assisted core biopsies of the right breast mass
== END ==
LOC: DS 10:15
PROVIDERS: ATTEND Internal Medicine
DX: R92.8 Other abnormal and inconclusive findings on diagnostic imaging of breast (principal)
CPT/HCPCS: 19083; 88305

== ENCOUNTER 2023-03-13 14:50 | Observation (INO) | payer OTHER ==
--- OUTSIDE RECORDS SUMMARY | 2023-03-13 15:04 | XMS REPORT | Continuity of Care Document ---
:1945 Author Organization [facility] t Address [address] [facility] [address] [place] [address] Care Team Providers Name Role Phone Juan F Shaffer Primary Care Physician BISHNU WRIGHT Attending Clinician Unavailable BISHNU WRIGHT Attending Clinician Unavailable Doctor Unassigned, Long[place] Attending Clinician Unavailable Spike Hand Attending Clinician [facility] Attending Clinician Unavailable José Miguel Bang MD Attending Clinician JOSÉ MIGUEL BANG Attending Clinician Unavailable Pcp, Patient Does Not Have A Attending Clinician [phone] Britt Bolton Attending Clinician BRITT CASTRO Attending Clinician Unavailable Unknown, Attending Attending Clinician Unavailable Agusto Salas Attending Clinician Kishor Adams MD Attending Clinician KISHOR ADAMS Attending Clinician Unavailable QUINTON WILSON Attending Clinician Unavailable Quinton James Attending Clinician Juan F Shaffer Attending Clinician TING LOVELACE Attending Clinician Unavailable Ting Velazuqez Attending Clinician Sona Jackson RN Attending Clinician Unavailable MICHAEL POTTER Attending Clinician Unavailable Michael Potter MD Attending Clinician Rashad Delgado MD Attending Clinician LIBERTY YEPEZ Attending Clinician Unavailable Liberty Carrasquillo Attending Clinician Jorge Ly Attending Clinician ROMA MAYA Attending Clinician Unavailable IRAM MANJARREZ Attending Clinician Unavailable IRAM MANJARREZ Attending Clinician Unavailable DIEGO ALVARADO Attending Clinician Unavailable PAUL BROWN Attending Clinician Unavailable QUINTON WILSON Admitting Clinician Unavailable RASHAD DELGADO Admitting Clinician Unavailable Rashad Delgado MD Admitting Clinician DIEGO ALVARADO Admitting Clinician Unavailable PAUL BROWN Admitting Clinician Unavailable Payers Payer Name Policy Type Policy Number Effective Date Expiration Date Benjamin DÍAZ PLS [id number] 2022 HMO 00:00:00 [employer] MEDICARE ADV [id number] 2019 00:00:00 Problems Condition Condition Condition Status Onset Resolution Last Treating Co mments Source Name Details Category Date Date Treatment Clinician Date Recurrent Recurrent Disease Active Uni vers UTI UTI 8-31 ity of 00:: [place] 00 [facility] Branch Acute Acute Disease Active Univers exacerbati exacerbati 6-13 it y of on of on of 00:: [place] chronic chronic 00 Medical low back low back Branch pain pain Exertional Exertional Disease Active 2020-0 U nivers chest pain chest pain 1-23 it y of 00:: [place] 00 Medical Branch ANDRADE ANDRADE Disease Active 2020-0 Univers (dyspnea (dyspnea 1-23 ity of on on 00:00: [place] exertion) exertion) 00 [facility] Essential Essential Disease Active 2020-0 Uni vers hypertensi hypertensi 1-23 it y of on on 00:00: [place] 00 Medical Branch Type 2 Type 2 Disease Active 2020-0 Univers diabetes diabetes 1-23 ity of mellitus mellitus 00:00: [place] without without 00 Medical complicati complicati Br anch on on Abnormal Abnormal Disease Active 2019-0 Unive rs ECG ECG 1-23 ity of 00:00: [place] 00 Medical Branch History of History of Disease Active 2020-0 U nivers anemia anemia 1-23 ity of 00:00: [place] 00 Medical Branch Rotator Rotator Disease Active [facility] cuff tear cuff tear 5-24 [facility] 00[facility] 00 Center Impingemen Impingemen Disease Active [facility] -24 [facility] syndrome, syndrome, 00:00: Medi sweta shoulder shoulder 00 Center 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 -24 [facility] arthrosis arthrosis 00:00: Medi sweta 00 Center Infection Infection Disease Active [facility] Leg pain Leg pain Disease [facility] Hypertensi Hypertensi Disease Active [facility] on on 6-15 [facility] Hypothyroi Hypothyroi Disease Active [facility] dism dism 6-15 [facility] 00:[facility] Center OAB OAB Disease Active [facility] (overactiv (overactiv 6-15 Debra kes e bladder) e bladder) 00:00: Me dical 00 Center Infection Infection Disease Recurre [facility] associated associated nce 6-15 Debra kes with with 00:00: Medical internal internal 00 Center knee knee prosthesis prosthesis NECK PAIN NECK PAIN Diagnosis Active 2013-08-28 Memoria Active 06-16 07:21:00 l 06/16/2013 00:00: Slava maza 00 [place] 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 [facility] Gastroesop Gastroeso Problem Resolve 2022-06-11 Memoria hageal phageal d 02:57:37 l reflux reflux Maxwell disease disease (disorder) (disorder) Resolved Problem 06/11/2022 [facility] Mixed Mixed Problem Resolve 2022-06-11 Yariel mariza anxiety anxiety d 02:57:37 l and and Adam depressive depressive disorder disorder (disorder) (disorder) Resolved Problem 06/11/2022 [facility] Asthma Asthma Problem Resolve 2022-06-11 Mem oria (disorder) (disorder) d 02:57:37 l Resolved [place] Problem 06/11/2022 [facility] Chronic Chronic Problem Resolve 2022-06-11 M lyudmilaria obstructiv obstructiv d 02:57:37 l e lung e lung Maxwell disease disease (disorder) (disorder) Resolved Problem 06/11/2022 [facility] Emphysema Emphysema Problem Resolve 2022-06-11 Memoria (morpholog (morpholog d 02:57:37 l ic ic Adam abnormalit abnormalit y) y) Resolved Problem 06/11/2022 [facility] Neck pain Neck pain Problem Resolve 2022-06-11 Memoria (finding) (finding) d 02:57:37 l Resolved Maxwell Problem 06/11/2022 [facility] Shock Shock Problem Resolve 2022-06-11 Yariel mariza (disorder) (disorder) d 02:57:37 l Resolved Adam [facility] Disease of Disease Problem Resolve 2022-06-11 Memoria urinary of urinary d 02:57:37 l tract tract Adam (disorder) (disorder) Resolved Problem 06/11/2022 [facility] Weakness Weakness Problem Resolve 2022-06-11 Memoria of of d 02:57:37 l limb(Confi limb(Confi He rmann rmed) rmed) Resolved Problem 06/11/2022 [facility] Acid Acid Problem Resolve 2013-07-24 Yariel mariza reflux reflux d 20:21:07 l Resolved Adam Problem 07/24/2013 [facility] Anxiety Anxiety Problem Resolve 2013-07-24 M emoria depression depression d 20:21:07 l Resolved Adam Problem 07/24/2013 [facility] COPD COPD Problem Resolve 2013-07-24 Yariel mariza Resolved d 20:21:07 l Problem Adam 07/24/2013 [facility] Emphysema Emphysema Problem Resolve 2013-07-24 Memoria Resolved d 20:21:07 l Problem Maxwell 07/24/2013 [facility] High High Problem Resolve 2013-07-24 Yariel mariza cholestero cholestero d 20:21:07 l l l Resolved Slava n Problem 07/24/2013 [facility] Hypertensi Hypertens Problem Resolve 2013-07-24 Memoria on ion d 20:21:07 l Resolved Maxwell Problem 07/24/2013 [facility] Neck pain Neck pain Problem Resolve 2013-07-24 Memoria Resolved d 20:21:07 l Problem Maxwell 07/24/2013 [facility] Poor Poor Problem Resolve 2013-07-24 Yariel mariza circulatio circulatio d 20:21:07 l n n Resolved Slava n Problem 07/24/2013 [facility] Urinary Urinary Problem Resolve 2013-07-24 M emoria disorder disorder d 20:21:07 l Resolved Maxwell Problem 07/24/2013 [facility] Weakness Weakness Problem Resolve 2013-07-24 Memoria of limb of limb d 20:21:07 l Resolved Adam Problem 07/24/2013 [facility] 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 Herm billie (disorder) (disorder) Active Problem 06/11/2022 [facility] Pure Pure Problem Active 2022-06-11 Memor ia hyperchole hyperchole 02:57:37 l sterolemia sterolemia He rmann (disorder) (disorder) Active Problem 06/11/2022 [facility] Neuralgia Neuralgia Problem Active 2022-06-11 Memoria (disorder) (disorder) 02:57:37 l Active [place] Problem 06/11/2022 [facility] Paresthesi Paresthes Problem Active 2022-06-11 Memoria a ia 02:57:37 l (finding) (finding) Herm billie Active Problem 06/11/2022 [facility] Spinal Spinal Problem Active 2022-06-11 Yariel mariza stenosis stenosis 02:57:37 l (disorder) (disorder) He rmann Active Problem 06/11/2022 [facility] Tremor Tremor Problem Active 2022-06-11 Yariel mariza (finding) (finding) 02:57:37 l Active [place] Problem 06/11/2022 [facility] Diabetes Diabetes Problem Active 2022-06-11 Memoria mellitus mellitus 02:57:37 l type 2 type 2 Maxwell (disorder) (disorder) Active Problem 06/11/2022 [facility] Amnesia Amnesia Problem Active 2022-06-11 Me moria (finding) (finding) 02:57:37 l Active [place] Problem 06/11/2022 [facility] Headache Headache Problem Active 2022-06-11 Memoria (finding) (finding) 02:57:37 l Active Adam Problem 06/11/2022 [facility] CERVICAL CERVICAL Diagnosis Active 2013-08-28 Memoria SPINAL SPINAL 07:21:00 l STENOSIS STENOSIS Slava n Active [facility] CERV DISC CERV DISC Diagnosis Active 2013-08-28 Memoria DIS W DIS W 07:21:00 l MYELOPAT MYELOPAT Slava n Active [facility] Allergies, Adverse Reactions, Alerts Allergy Allergy Status Severity Reaction(s) Onset Inactive Treating Comm ents Source Name Type Date Date Clinician Morphine Drug Active Other (See CONFUSION [facility] Allergy Comments) 04-11 / [facility]: hallucina [facility] Center MORPHINE DRUG Active High Hallucinates Un oseas INGREDI 04-11 ity of 00:00: [place] 00 Medical Branch Morphine Propensi Active Hallucinatio CONFUSI ON Univers ty to ns 04-11 / ity of adverse 00:00: hallucina [place] reaction 00 tionCONFU Medic al s STORMY / Branch hallucina tionCONFU SIONCONFU STORMY / hallucina tion Morphine Morphine Active Memori a Sulfate Sulfate l Adam Social History Social Habit Start Date Stop Date Quantity Comments Source History SDOH University o f Alcohol Std [place] Medical Drinks Branch History SDOH University o f Alcohol Binge [place] Medic al Branch History SDOH University o f Alcohol Comment [place] Med [facility] History of Cigarette Smoker Universi ty of tobacco use [facility] Branch Exposure to 2023-02-15 2023-02-25 Not sure University of SARS-CoV-2 00:00:00 13:44:00 [place] Medical (event) Branch Tobacco use and 2022-05-26 2022-05-26 Smokeless tobacco Un iversity of exposure 00:00:00 00:00:00 non-user [place] [facility] History SDOH 2022-04-09 2022-04-09 1 University o f Alcohol Frequency 00:00:00 00:00:00 [place] M edical Branch Social History 2021-08-15 2021-08-15 Yogesh salazar 20:38:18 20:38:18 Alcohol intake 2018-03-20 2018-03-[address] [facility] 00:[facility]:00 00:00:00 non-drinker of Medical Ce nter alcohol (finding) Tobacco Comment 2018-03-12 2018-03-[address] [facility] 00[facility] Center Sex [birth year] MALCOLM Valenzuela 00:00:00 00:00:00 Medical Center Smoking Status Start Date Stop Date Source Ex-smoker 2022-05-26 00:00:00 2022-05-26 00:00:00 [facility] Medical Branch Medications Ordered Filled Start Stop Current Ordering Indication Dosage Frequency Signature Comments Components Source Medication Medication Date Date Medication? Clinician (SIG) Name Name estradioL Yes [id number] Apply 1g Univers (ESTRACE) 5-01 vaginally ity o f 0.01 % (0.1 00:00: at bedtime [place] mg/gram) 00 every Medical vaginal night for Branch cream 4 weeks estradioL Yes [id number] Apply 1g Univers (ESTRACE) 5-01 vaginally ity o f 0.01 % (0.1 00:00: at bedtime [place] mg/gram) 00 every Medical vaginal night for Branch cream 4 weeks estradioL Yes [id number] Apply 1g Univers (ESTRACE) 5-01 vaginally ity o f 0.01 % (0.1 00:00: at bedtime [place] mg/gram) 00 every Medical vaginal night for Branch cream 4 weeks estradioL Yes [id number] Apply 1g Univers (ESTRACE) 5-01 vaginally ity o f 0.01 % (0.1 00:00: at bedtime [place] mg/gram) 00 every Medical vaginal night for Branch cream 4 weeks losartan-hy Yes 1{tbl} Take 1 Un oseas drochloroth 4-12 tablet by ity of iazide 10:22: mouth in [place] 50-12.5 mg 43 the Medical per tablet morning. Branc h sitagliptin Yes Take by Uni vers phosphate 4-12 mouth ity of (JANUVIA 10:22: daily. [place] ORAL) 43 Medical Branch losartan-hy Yes 1{tbl} Take 1 Un oseas drochloroth 4-12 tablet by ity of iazide 10:22: mouth in [place] 50-12.5 mg 43 the Medical per tablet morning. Branc h sitagliptin Yes Take by Uni vers phosphate 4-12 mouth ity of (JANUVIA 10:22: daily. [place] ORAL) 43 Medical Branch losartan-hy 2022-0 Yes 1{tbl} Take 1 Un oseas drochloroth 4-12 tablet by ity of iazide 10:22: mouth in [place] 50-12.5 mg 43 the Medical per tablet morning. Branc h sitagliptin 0 Yes Take by Uni vers phosphate 4-12 mouth ity of (JANUVIA 10:22: daily. [place] ORAL) 43 Medical Branch losartan-hy 2022-0 Yes 1{tbl} Take 1 Un oseas drochloroth 4-12 tablet by ity of iazide 10:22: mouth in [place] 50-12.5 mg 43 the Medical per tablet morning. Branc h sitagliptin 0 Yes Take by Uni vers phosphate 4-12 mouth ity of (JANUVIA 10:22: daily. [place] ORAL) 43 Medical Branch losartan-hy 0 Yes 1{tbl} Take 1 Un oseas drochloroth 4-12 tablet by ity of iazide 10:22: mouth in [place] 50-12.5 mg 43 the Medical per tablet morning. Branc h sitagliptin 0 Yes Take by Uni vers phosphate 4-12 mouth ity of (JANUVIA 10:22: daily. [place] ORAL) 43 Medical Branch losartan-hy 0 Yes 1{tbl} Take 1 Un oseas drochloroth 4-12 tablet by ity of iazide 10:22: mouth in [place] 50-12.5 mg 43 the Medical per tablet morning. Branc h sitagliptin 0 Yes Take by Uni vers phosphate 4-12 mouth ity of (JANUVIA 10:22: daily. [place] ORAL) 43 Medical Branch losartan-hy 0 Yes 1{tbl} Take 1 Un oseas drochloroth 4-12 tablet by ity of iazide 10:22: mouth in [place] 50-12.5 mg 43 the Medical per tablet morning. Branc h sitagliptin 2022-0 Yes Take by Uni vers phosphate 4-12 mouth ity of (JANUVIA 10:22: daily. [place] ORAL) 43 Medical Branch losartan-hy 2022-0 Yes 1{tbl} Take 1 Un oseas drochloroth 4-12 tablet by ity of iazide 10:22: mouth in [place] 50-12.5 mg 43 the Medical per tablet morning. Branc h sitagliptin 0 Yes Take by Uni vers phosphate 4-12 mouth ity of (JANUVIA 10:22: daily. [place] ORAL) 43 Medical Branch losartan-hy 0 Yes 1{tbl} Take 1 Un oseas drochloroth 4-12 tablet by ity of iazide 10:22: mouth in [place] 50-12.5 mg 43 the Medical per tablet morning. Bran h sitagliptin 0 Yes Take by Uni vers phosphate 4-12 mouth ity of (JANUVIA 10:22: daily. [place] ORAL) 43 Medical Branch losartan-hy 0 Yes 1{tbl} Take 1 Un oseas drochloroth 4-12 tablet by ity of iazide 10:22: mouth in [place] 50-12.5 mg 43 the Medical per tablet morning. Bran h sitagliptin Yes Take by Uni vers phosphate 4-12 mouth ity of (JANUVIA 10:22: daily. [place] ORAL) 43 Medical Branch losartan-hy Yes 1{tbl} Take 1 Un oseas drochloroth 4-12 tablet by ity of iazide 10:22: mouth in [place] 50-12.5 mg 43 the Medical per tablet morning. Bran h sitagliptin Yes Take by Uni vers phosphate 4-12 mouth ity of (JANUVIA 10:22: daily. [place] ORAL) 43 Medical Branch losartan-hy 0 Yes 1{tbl} Take 1 Un oseas drochloroth 4-12 tablet by ity of iazide 10:22: mouth in [place] 50-12.5 mg 43 the Medical per tablet morning. Branc h sitagliptin 0 Yes Take by Uni vers phosphate 4-12 mouth ity of (JANUVIA 10:22: daily. [place] ORAL) 43 Medical Branch losartan-hy 0 Yes 1{tbl} Take 1 Un oseas drochloroth 4-12 tablet by ity of iazide 10:22: mouth in [place] 50-12.5 mg 43 the Medical per tablet morning. Branc h sitagliptin 0 Yes Take by Uni vers phosphate 4-12 mouth ity of (JANUVIA 10:22: daily. [place] ORAL) 43 Medical Branch methenamine 0 Yes [id number] 1g Take 1 Univers 1 gram 4-12 tablet by ity of tablet 00:00: mouth in [address] and 1 tablet in the evening. Take with meals. methenamine 2023-0 Yes 1g Take 1 Univers 1 gram 4-12 tablet by ity of tablet 00:00: mouth in [address] and 1 tablet in the evening. Take with meals. methenamine 2023-0 Yes 1g Take 1 Univers 1 gram 4-12 tablet by ity of tablet 00:00: mouth in [address] and 1 tablet in the evening. Take with meals. methenamine 2023-0 Yes 1g Take 1 Univers 1 gram 4-12 tablet by ity of tablet 00:00: mouth in [address] and 1 tablet in the evening. Take with meals. methenamine 2023-0 Yes 1g Take 1 Univers 1 gram 4-12 tablet by ity of tablet 00:00: mouth in [address] and 1 tablet in the evening. Take with meals. methenamine 2023-0 Yes 1g Take 1 Univers 1 gram 4-12 tablet by ity of tablet 00:00: mouth in [address] and 1 tablet in the evening. Take with meals. methenamine 2023-0 Yes 1g Take 1 Univers 1 gram 4-12 tablet by ity of tablet 00:00: mouth in [address] and 1 tablet in the evening. Take with meals. methenamine 2023-0 Yes 1g Take 1 Univers 1 gram 4-12 tablet by ity of tablet 00:00: mouth in [address] and 1 tablet in the evening. Take with meals. methenamine 2023-0 Yes 1g Take 1 Univers 1 gram 4-12 tablet by ity of tablet 00:00: mouth in [address] and 1 tablet in the evening. Take with meals. methenamine 2023-0 Yes 1g Take 1 Univers 1 gram 4-12 tablet by ity of tablet 00:00: mouth in [address] and 1 tablet in the evening. Take with meals. methenamine 2023-0 Yes 1g Take 1 Univers 1 gram 4-12 tablet by ity of tablet 00:00: mouth in [place] [address] the Medical morning Branch and 1 tablet in the evening. Take with meals. methenamine 2023-0 Yes 1g Take 1 Univers 1 gram 4-12 tablet by ity of tablet 00:00: mouth in [place] [address] the [facility] morning Branch and 1 tablet in the evening. Take with meals. methenamine 2023-0 Yes 1g Take 1 Univers 1 gram 4-12 tablet by ity of tablet 00:00: mouth in [place] [address] the [facility] morning Branch and 1 tablet in the evening. Take with meals. methylpredn 2022-0 2022- No [id number] 125mg Univers isolone sod 01-11 ity of succ 00:30: 23:30 [place] (SOLU-MEDRO 00 :00 Medical L) Branch injection 125 mg methylpredn 2022-0 2022- No [id number] 125mg 125 mg, Univers isolone sod 01-11 Intramuscu i ty of succ 00:30: 23:30 lar, ONCE, [place] (SOLU-MEDRO 00 :00 1 dose, On Md dical L) [facility] Branch injection 01/10/23 at 125 mg 1930, Routine albuterol 2022- No [id number] 2{puff} Univers (VENTOLIN) 01-11 ity of inhaler 2 00:15: 23:31 [place] Puff 00 :00 [facility] Branch albuterol 2022-0 3- No [id number] 2{puff} 2 Puff, Univers (VENTOLIN) 01-11 Inhalation it y of inhaler 2 00:15: 23:31 , [place]CE, [place] Puff [place] :[place] dose, On Medical [place] Branch 01/10/23 at 1915, Routine azithromyci 2022-0 Yes [id number] 250mg Take 1 Univers n 250 mg 3-16 tablet by ity of tablet 00:00: mouth in [place] the Medical morning. Branch azithromyci 2022-0 Yes [id number] 250mg Take 1 Univers n 250 mg 3-16 tablet by ity of tablet 00:00: mouth in [place] [address] the Medical morning. Branch azithromyci 2022-0 Yes [id number] 250mg Take 1 Univers n 250 mg 3-16 tablet by ity of tablet 00:00: mouth in [place] 00 the Medical morning. Branch azithromyci 2023-0 3- No [id number] 250mg Take 1 Univers n 250 mg 3-16 04-12 tablet by ity o f tablet 00:00: 00:00 mouth in [place] 00 :00 the Medical morning. Branch azithromyci 3-0 3- No [id number] 250mg Take 1 Univers n 250 mg 3-16 04-12 tablet by ity o f tablet 00:00: 00:00 mouth in [place] 00 :00 the Medical morning. Branch azithromyci 2022-0 3- No [id number] 250mg Take 1 Univers n 250 mg 3-16 04-12 tablet by ity o f tablet 00:00: 00:00 mouth in [place] 00 :00 the Medical morning. Branch methenamine 2023-0 Yes [id number] 1g Take 1 Univers 1 gram 3-01 tablet by ity of tablet 00:00: mouth in [place] 00 the Medical morning Branch and 1 tablet in the evening. Take with meals. methenamine 2023-0 Yes 1g Take 1 Univers 1 gram 3-01 tablet by ity of tablet 00:00: mouth in [place] 00 the Medical morning Branch and 1 tablet in the evening. Take with meals. methenamine 2023-0 Yes 1g Take 1 Univers 1 gram 3-01 tablet by ity of tablet 00:00: mouth in [place] 00 the Medical morning Branch and 1 tablet in the evening. Take with meals. methenamine 2023-0 Yes 1g Take 1 Univers 1 gram 3-01 tablet by ity of tablet 00:00: mouth in [place] 00 the Medical morning Branch and 1 tablet in the evening. Take with meals. methenamine 2023-0 3- No [id number] 1g Take 1 Univers 1 gram 3-01 04-12 tablet by ity of tablet 00:00: 00:00 mouth in [place] 00 :00 the Medical morning Branch and 1 tablet in the evening. Take with meals. methenamine 2023-0 3- No [id number] 1g Take 1 Univers 1 gram 3-01 04-12 tablet by ity of tablet 00:00: 00:00 mouth in [place] 00 :00 the Medical morning Branch and 1 tablet in the evening. Take with meals. methenamine 0 2022- No [id number] 1g Take 1 Univers 1 gram 3-01 04-12 tablet by ity of tablet 00:00: 00:00 mouth in [place] 00 :00 the Medical morning Branch and 1 tablet in the evening. Take with meals. methenamine 2021-10 Yes 1g Take 1 Univers 1 gram 1-02 tablet by ity of tablet 00:00: mouth in [place] 00 the Medical morning Branch and 1 tablet in the evening. Take with meals. methenamine 2021-10 Yes 1g Take 1 Univers 1 gram 1-02 tablet by ity of tablet 00:00: mouth in [place] 00 the Medical morning Branch and 1 tablet in the evening. Take with meals. methenamine 2021-10 Yes 1g Take 1 Univers 1 gram 1-02 tablet by ity of tablet 00:00: mouth in [place] 00 the Medical morning Branch and 1 tablet in the evening. Take with meals. methenamine 2021-10 Yes 1g Take 1 Univers 1 gram 1-02 tablet by ity of tablet 00:00: mouth in [place] 00 the Medical morning [place] and 1 tablet in the evening. Take with meals. methenamine 2021-10- No [id number] 1g Take 1 Univers 1 gram 1-02 03-01 tablet by ity of tablet 00:00: 00:00 mouth in [place] 00 :00 the Medical morning Branch and 1 tablet in the evening. Take with meals. pneumococca 2021-10- No [id number] .5mL 0.5 mL by [employer] l vac 10-29 Intramuscu ity of polyvalent 00:00: 00:00 [place] 25 mcg/0.5 00 :00 once now Medic al mL for 1 Branch injection dose. pneumococca 2021-10- No [id number] .5mL 0.5 mL by [employer] l vac 10-29 Intramuscu ity of polyvalent 00:00: 00:00 lar route [place] 25 mcg/0.5 00 :00 once now Medic al mL for 1 Branch injection dose. pneumococca 2021-10- No [id number] .5mL 0.5 mL by [employer] l vac 10-29 Intramuscu ity of polyvalent 00:00: 00:00 lar route [place] 25 mcg/0.5 00 :00 once now Medic al mL for 1 Branch injection dose. methenamine [id number] 1g Take 1 Univers 1 gram 07-04 tablet by ity of tablet 00:00: 05:59 mouth in [place] 00 :00 the [facility] and 1 tablet in the evening. Take with meals. Do all this for 60 days. methenamine [id number] 1g Take 1 Univers 1 gram 07-04 tablet by ity of tablet 00:00: 05:59 mouth in [place] 00 :00 the [facility] and 1 tablet in the evening. Take with meals. Do all this for 60 days. methenamine [id number] 1g Take 1 Univers 1 gram 07-04 tablet by ity of tablet 00:00: 05:59 mouth in [place] 00 :00 the [facility] and 1 tablet in the evening. Take with meals. Do all this for 60 days. methenamine [id number] 1g Take 1 Univers 1 gram 07-04 tablet by ity of tablet 00:00: 05:59 mouth in [place] 00 :[address] [facility] and 1 tablet in the evening. Take with meals. Do all this for 60 days. methenamine [id number] 1g Take 1 Univers 1 gram 07-04 tablet by ity of tablet 00:00: 00:00 mouth in [place] 00 :[address] [facility] and 1 tablet in the evening. Take with meals. Do all this for 60 days. methenamine [id number] 1g Take 1 Univers 1 gram 07-04 tablet by ity of tablet 00:00: 00:00 mouth in [place] 00 :[address] [facility] and 1 tablet in the evening. Take with meals. Do all this for 60 days. methenamine [id number] 1g Take 1 Univers 1 gram 07-04 tablet by ity of tablet 00:00: 00:00 mouth in [place] 00 :[address] [facility] and 1 tablet in the evening. Take with meals. Do all this for 60 days. amoxicillin 2021- No [id number] 1{tbl} Take 1 Univers -clavulanat 8-04 08-15 tablet by it y of e 00:00: 04:59 mouth in [place] (AUGMENTIN) 00 :00 the Medical 875-125 mg morning Branch per tablet and 1 tablet in the evening. Do all this for 10 days. losartan-hy Yes 1{tbl} Take 1 [facility] drochloroth 6-14 tablet by ity of iazide 15:23: mouth [place] 50-12.5 mg 43 daily. Medical per tablet Branch sitagliptin Yes Take by [facility] vers phosphate 6-14 mouth ity of (JANUVIA 15:23: daily. [place] ORAL) 43 Medical Branch losartan-hy Yes 1{tbl} Take 1 [facility] drochloroth 6-14 tablet by ity of iazide 15:23: mouth [place] 50-12.5 mg 43 daily. Medical per tablet Branch sitagliptin Yes Take by [facility] vers phosphate 6-14 mouth ity of (JANUVIA 15:23: daily. [place] ORAL) 43 Medical Branch losartan-hy Yes 1{tbl} Take 1 [facility] drochloroth 6-14 tablet by ity of iazide 15:23: mouth [place] 50-12.5 mg 43 daily. Medical per tablet Branch sitagliptin Yes Take by [facility] vers phosphate 6-14 mouth ity of (JANUVIA 15:23: daily. [place] ORAL) 43 Medical Branch losartan-hy Yes 1{tbl} Take 1 [facility] drochloroth 6-14 tablet by ity of iazide 15:23: mouth [place] 50-12.5 mg 43 daily. Medical per tablet Branch sitagliptin 0 Yes Take by [facility] vers phosphate 6-14 mouth ity of (JANUVIA 15:23: daily. [place] ORAL) 43 Medical Branch losartan-hy Yes 1{tbl} Take 1 [facility] drochloroth 6-14 tablet by ity of iazide 15:23: mouth [place] 50-12.5 mg 43 daily. Medical per tablet Branch sitagliptin Yes Take by [facility] vers phosphate 6-14 mouth ity of (JANUVIA 15:23: daily. [place] ORAL) 43 Medical Branch losartan-hy Yes 1{tbl} Take 1 [facility] drochloroth 6-14 tablet by ity of iazide 15:23: mouth [place] 50-12.5 mg 43 daily. Medical per tablet Branch sitagliptin Yes Take by [facility] vers phosphate 6-14 mouth ity of (JANUVIA 15:23: daily. [place] ORAL) 43 Medical Branch losartan-hy Yes 1{tbl} Take 1 [facility] drochloroth 6-14 tablet by ity of iazide 15:23: mouth [place] 50-12.5 mg 43 daily. Medical per tablet Branch sitagliptin Yes Take by [facility] vers phosphate 6-14 mouth ity of (JANUVIA 15:23: daily. [place] ORAL) 43 Medical Branch losartan-hy Yes 1{tbl} Take 1 [facility] drochloroth 6-14 tablet by ity of iazide 15:23: mouth [place] 50-12.5 mg 43 daily. Medical per tablet Branch sitagliptin Yes Take by [facility] vers phosphate 6-14 mouth ity of (JANUVIA 15:23: daily. [place] ORAL) 43 Medical Branch losartan-hy Yes 1{tbl} Take 1 [facility] drochloroth 6-14 tablet by ity of iazide 15:23: mouth [place] 50-12.5 mg 43 daily. Medical per tablet Branch sitagliptin Yes Take by [facility] vers phosphate 6-14 mouth ity of (JANUVIA 15:23: daily. [place] ORAL) 43 Medical Branch losartan-hy Yes 1{tbl} Take 1 [facility] drochloroth 6-14 tablet by ity of iazide 15:23: mouth [place] 50-12.5 mg 43 daily. Medical per tablet Branch sitagliptin Yes Take by [facility] vers phosphate 6-14 mouth ity of (JANUVIA 15:23: daily. [place] ORAL) 43 Medical Branch losartan-hy Yes 1{tbl} Take 1 [facility] drochloroth 6-14 tablet by ity of iazide 15:23: mouth [place] 50-12.5 mg 43 daily. Medical per tablet Branch sitagliptin Yes Take by [facility] vers phosphate 6-14 mouth ity of (JANUVIA 15:23: daily. [place] ORAL) 43 Medical Branch losartan-hy Yes 1{tbl} Take 1 [facility] drochloroth 6-14 tablet by ity of iazide 15:23: mouth [place] 50-12.5 mg 43 daily. Medical per tablet Branch sitagliptin Yes Take by [facility] vers phosphate 6-14 mouth ity of (JANUVIA 15:23: daily. [place] ORAL) 43 Medical Branch losartan-hy Yes 1{tbl} Take 1 [facility] drochloroth 6-14 tablet by ity of iazide 15:23: mouth [place] 50-12.5 mg 43 daily. Medical per tablet Branch sitagliptin Yes Take by [facility] vers phosphate 6-14 mouth ity of (JANUVIA 15:23: daily. [place] ORAL) 43 Medical Branch losartan-hy Yes 1{tbl} Take 1 [facility] drochloroth 6-14 tablet by ity of iazide 15:23: mouth [place] 50-12.5 mg 43 daily. Medical per tablet Branch sitagliptin Yes Take by [facility] vers phosphate 6-14 mouth ity of (JANUVIA 15:23: daily. [place] ORAL) 43 Medical Branch fluticasone Yes [id number] 1{puff} Inhale 1 [facility] propion-brittney 6-14 Puff every it y of meteroL 00:00: 12 [place] (ADVAIR 00 (twelve) Medical DISKUS) hours. Branch 250-50 mcg/dose inhalation disk fluticasone Yes [id number] 1{puff} Inhale 1 [facility] propion-brittney 6-14 Puff every it y of meteroL 00:00: 12 [place] (ADVAIR 00 (twelve) Medical DISKUS) hours. Branch 250-50 mcg/dose inhalation disk fluticasone Yes [id number] 1{puff} Inhale 1 [facility] propion-brittney 6-14 Puff every it y of meteroL 00:00: 12 [place] (ADVAIR 00 (twelve) Medical DISKUS) hours. Branch 250-50 mcg/dose inhalation disk fluticasone 2022-0 Yes [id number] 1{puff} Inhale 1 [facility] propion-brittney 6-14 Puff every it y of meteroL 00:00: 12 [place] (ADVAIR ) Medical DISKUS) hours. Branch 250-50 mcg/dose inhalation disk fluticasone 2-0 Yes [id number] 1{puff} Inhale 1 [facility] propion-brittney 6-14 Puff every it y of meteroL 00:00: 12 [place] (ADVAIR ) Medical DISKUS) hours. Branch 250-50 mcg/dose inhalation disk fluticasone 2-0 Yes [id number] 1{puff} Inhale 1 [facility] propion-brittney 6-14 Puff every it y of meteroL 00:00: 12 [place] (ADVAIR ) Medical DISKUS) hours. Branch 250-50 mcg/dose inhalation disk fluticasone 2-0 Yes [id number] 1{puff} Inhale 1 [facility] propion-brittney 6-14 Puff every it y of meteroL 00:00: 12 [place] (ADVAIR ) Medical DISKUS) hours. Branch 250-50 mcg/dose inhalation disk fluticasone 2-0 Yes [id number] 1{puff} Inhale 1 [facility] propion-brittney 6-14 Puff every it y of meteroL 00:00: 12 [place] (ADVAIR Medical DISKUS) hours. Branch 250-50 mcg/dose inhalation disk fluticasone 2-0 Yes [id number] 1{puff} Inhale 1 [facility] propion-brittney 6-14 Puff every it y of meteroL 00:00: 12 [place] (ADVAIR ) Medical DISKUS) hours. Branch 250-50 mcg/dose inhalation disk fluticasone 2-0 Yes [id number] 1{puff} Inhale 1 [facility] propion-brittney 6-14 Puff every it y of meteroL 00:00: 12 [place] (ADVAIR ) Medical DISKUS) hours. Branch 250-50 mcg/dose inhalation disk fluticasone 2022-0 Yes [id number] 1{puff} Inhale 1 [facility] propion-brittney 6-14 Puff every it y of meteroL 00:00: 12 [place] (ADVAIR ) Medical DISKUS) hours. Branch 250-50 mcg/dose inhalation disk fluticasone 2022-0 Yes [id number] 1{puff} Inhale 1 [facility] propion-brittney 6-14 Puff every it y of meteroL 00:00: 12 [place] (ADVAIR () Medical DISKUS) hours. Branch 250-50 mcg/dose inhalation disk fluticasone 2022-0 Yes [id number] 1{puff} Inhale 1 [facility] propion-brittney 6-14 Puff every it y of meteroL 00:00: 12 [place] (ADVAIR () Medical DISKUS) hours. Branch 250-50 mcg/dose inhalation disk fluticasone 2022-0 Yes [id number] 1{puff} Inhale 1 [facility] propion-brittney 6-14 Puff every it y of meteroL 00:00: 12 [place] (ADVAIR () Medical DISKUS) hours. Branch 250-50 mcg/dose inhalation disk fluticasone 2022-0 Yes [id number] 1{puff} Inhale 1 [facility] propion-brittney 6-14 Puff every it y of meteroL 00:00: 12 [place] (ADVAIR () Medical DISKUS) hours. Branch 250-50 mcg/dose inhalation disk fluticasone 2022-0 Yes [id number] 1{puff} Inhale 1 [facility] propion-brittney 6-14 Puff every it y of meteroL 00:00: 12 [place] (ADVAIR () Medical DISKUS) hours. Branch 250-50 mcg/dose inhalation disk fluticasone 2022-0 Yes [id number] 1{puff} Inhale 1 [facility] propion-brittney 6-14 Puff every it y of meteroL 00:00: 12 [place] (ADVAIR () Medical DISKUS) hours. Branch 250-50 mcg/dose inhalation disk fluticasone 2022-0 Yes [id number] 1{puff} Inhale 1 [facility] propion-brittney 6-14 Puff every it y of meteroL 00:00: 12 [place] (ADVAIR () Medical DISKUS) hours. Branch 250-50 mcg/dose inhalation disk fluticasone 2022-0 Yes [id number] 1{puff} Inhale 1 [facility] propion-brittney 6-14 Puff every it y of meteroL 00:00: 12 [place] (ADVAIR 00 (twelve) Medical DISKUS) hours. Branch 250-50 mcg/dose inhalation disk fluticasone 2022-0 Yes [id number] 1{puff} Inhale 1 [facility] propion-brittney 6-14 Puff every it y of meteroL 00:00: 12 [place] (ADVAIR 00 (twelve) Medical DISKUS) hours. Branch 250-50 mcg/dose inhalation disk fluticasone 2022-0 Yes [id number] 1{puff} Inhale 1 [facility] propion-brittney 6-14 Puff every it y of meteroL 00:00: 12 [place] (ADVAIR 00 (twelve) Medical DISKUS) hours. Branch 250-50 mcg/dose inhalation disk fluticasone 2022-0 Yes [id number] 1{puff} Inhale 1 [facility] propion-brittney 6-14 Puff every it y of meteroL 00:00: 12 [place] (ADVAIR (twelve) Medical DISKUS) hours. Branch 250-50 mcg/dose inhalation disk fluticasone 2022-0 Yes [id number] 1{puff} Inhale 1 [facility] propion-brittney 6-14 Puff every it y of meteroL 00:00: 12 [place] (ADVAIR (twelve) Medical DISKUS) hours. Branch 250-50 mcg/dose inhalation disk fluticasone 2022-0 Yes [id number] 1{puff} Inhale 1 [facility] propion-brittney 6-14 Puff every it y of meteroL 00:00: 12 [place] (ADVAIR 00 (twelve) Medical DISKUS) hours. Branch 250-50 mcg/dose inhalation disk fluticasone 2022-0 Yes [id number] 1{puff} Inhale 1 [facility] propion-brittney 6-14 Puff every it y of meteroL 00:00: 12 [place] (ADVAIR 00 (twelve) Medical DISKUS) hours. Branch 250-50 mcg/dose inhalation disk fluticasone 2022-0 Yes [id number] 1{puff} Inhale 1 [facility] propion-brittney 6-14 Puff every it y of meteroL 00:00: 12 [place] (ADVAIR 00 (twelve) Medical DISKUS) hours. Branch 250-50 mcg/dose inhalation disk fluticasone 2022-0 Yes [id number] 1{puff} Inhale 1 [facility] propion-brittney 6-14 Puff every it y of meteroL 00:00: 12 [place] (ADVAIR 00 (twelve) Medical DISKUS) hours. Branch 250-50 mcg/dose inhalation disk methocarbam 2021-0 Yes [id number] 500mg Take 1 [facility] oL 500 mg 6-13 tablet by ity o f tablet 00:00: mouth [place] 00 every 6 Medical (six) Branch hours as needed for Pain (scale 7-10) (MUSCLE SPASM). methocarbam 2021-0 Yes [id number] 500mg Take 1 [facility] oL 500 mg 6-13 tablet by ity o f tablet 00:00: mouth [place] 00 every 6 Medical (six) Branch hours as needed for Pain (scale 7-10) (MUSCLE SPASM). methocarbam 2021-0 Yes [id number] 500mg Take 1 [facility] oL 500 mg 6-13 tablet by ity o f tablet 00:00: mouth [place] 00 every 6 Medical (six) Branch hours as needed for Pain (scale 7-10) (MUSCLE SPASM). methocarbam 2021-0 Yes [id number] 500mg Take 1 [facility] oL 500 mg 6-13 tablet by ity o f tablet 00:00: mouth [place] 00 every 6 Medical (six) Branch hours as needed for Pain (scale 7-10) (MUSCLE SPASM). methocarbam 0 Yes [id number] 500mg Take 1 [facility] oL 500 mg 6-13 tablet by ity o f tablet 00:00: mouth [place] 00 every 6 Medical (six) Branch hours as needed for Pain (scale 7-10) (MUSCLE SPASM). methocarbam 2021-0 Yes [id number] 500mg Take 1 [facility] oL 500 mg 6-13 tablet by ity o f tablet 00:00: mouth [place] 00 every 6 Medical (six) Branch hours as needed for Pain (scale 7-10) (MUSCLE SPASM). methocarbam 2021-0 Yes [id number] 500mg Take 1 [facility] oL 500 mg 6-13 tablet by ity o f tablet 00:00: mouth [place] 00 every 6 Medical (six) Branch hours as needed for Pain (scale 7-10) (MUSCLE SPASM). methocarbam 2021-0 Yes [id number] 500mg Take 1 [facility] oL 500 mg 6-13 tablet by ity o f tablet 00:00: mouth [place] 00 every 6 Medical (six) Branch hours as needed for Pain (scale 7-10) (MUSCLE SPASM). methocarbam 2021-0 Yes [id number] 500mg Take 1 [facility] oL 500 mg 6-13 tablet by ity o f tablet 00:00: mouth [place] 00 every 6 Medical (six) Branch hours as needed for Pain (scale 7-10) (MUSCLE SPASM). methocarbam 2021-0 Yes [id number] 500mg Take 1 [facility] oL 500 mg 6-13 tablet by ity o f tablet 00:00: mouth [place] 00 every 6 Medical (six) Branch hours as needed for Pain (scale 7-10) (MUSCLE SPASM). methocarbam 2021-0 Yes [id number] 500mg Take 1 [facility] oL 500 mg 6-13 tablet by ity o f tablet 00:00: mouth [place] 00 every 6 Medical (six) Branch hours as needed for Pain (scale 7-10) (MUSCLE SPASM). methocarbam 2021-0 Yes [id number] 500mg Take 1 [facility] oL 500 mg 6-13 tablet by ity o f tablet 00:00: mouth [place] 00 every 6 Medical (six) Branch hours as needed for Pain (scale 7-10) (MUSCLE SPASM). methocarbam 2021-0 Yes [id number] 500mg Take 1 [facility] oL 500 mg 6-13 tablet by ity o f tablet 00:00: mouth [place] 00 every 6 Medical (six) Branch hours as needed for Pain (scale 7-10) (MUSCLE SPASM). methocarbam 2021-0 Yes [id number] 500mg Take 1 [facility] oL 500 mg 6-13 tablet by ity o f tablet 00:00: mouth [place] 00 every 6 Medical (six) Branch hours as needed for Pain (scale 7-10) (MUSCLE SPASM). methocarbam 2021-0 Yes [id number] 500mg Take 1 [facility] oL 500 mg 6-13 tablet by ity o f tablet 00:00: mouth [place] 00 every 6 Medical (six) Branch hours as needed for Pain (scale 7-10) (MUSCLE SPASM). methocarbam 2-0 Yes [id number] 500mg Take 1 [facility] oL 500 mg 6-13 tablet by ity o f tablet 00:00: mouth [place] 00 every 6 Medical (six) Branch hours as needed for Pain (scale 7-10) (MUSCLE SPASM). methocarbam 2-0 Yes [id number] 500mg Take 1 [facility] oL 500 mg 6-13 tablet by ity o f tablet 00:00: mouth [place] 00 every 6 Medical (six) Branch hours as needed for Pain (scale 7-10) (MUSCLE SPASM). methocarbam 2021-0 Yes [id number] 500mg Take 1 [facility] oL 500 mg 6-13 tablet by ity o f tablet 00:00: mouth [place] 00 every 6 Medical (six) Branch hours as needed for Pain (scale 7-10) (MUSCLE SPASM). methocarbam 2021-0 Yes [id number] 500mg Take 1 [facility] oL 500 mg 6-13 tablet by ity o f tablet 00:00: mouth [place] 00 every 6 Medical (six) Branch hours as needed for Pain (scale 7-10) (MUSCLE SPASM). methocarbam 2021-0 Yes [id number] 500mg Take 1 [facility] oL 500 mg 6-13 tablet by ity o f tablet 00:00: mouth [place] 00 every 6 Medical (six) Branch hours as needed for Pain (scale 7-10) (MUSCLE SPASM). methocarbam 2021-0 Yes [id number] 500mg Take 1 [facility] oL 500 mg 6-13 tablet by ity o f tablet 00:00: mouth [place] 00 every 6 Medical (six) Branch hours as needed for Pain (scale 7-10) (MUSCLE SPASM). methocarbam 2021-0 Yes [id number] 500mg Take 1 [facility] oL 500 mg 6-13 tablet by ity o f tablet 00:00: mouth [place] 00 every 6 Medical (six) Branch hours as needed for Pain (scale 7-10) (MUSCLE SPASM). methocarbam 2021-0 Yes [id number] 500mg Take 1 [facility] oL 500 mg 6-13 tablet by ity o f tablet 00:00: mouth [place] 00 every 6 Medical (six) Branch hours as needed for Pain (scale 7-10) (MUSCLE SPASM). methocarbam 2-0 Yes [id number] 500mg Take 1 [facility] oL 500 mg 6-13 tablet by ity o f tablet 00:00: mouth [place] 00 every 6 Medical (six) Branch hours as needed for Pain (scale 7-10) (MUSCLE SPASM). methocarbam 2022-0 Yes [id number] 500mg Take 1 [facility] oL 500 mg 6-13 tablet by ity o f tablet 00:00: mouth [place] 00 every 6 Medical (six) Branch hours as needed for Pain (scale 7-10) (MUSCLE SPASM). methocarbam 2021-0 Yes [id number] 500mg Take 1 [facility] oL 500 mg 6-13 tablet by ity o f tablet 00:00: mouth [place] 00 every 6 Medical (six) Branch hours as needed for Pain (scale 7-10) (MUSCLE SPASM). methocarbam 2021-0 Yes [id number] 500mg Take 1 [facility] oL 500 mg 6-13 tablet by ity o f tablet 00:00: mouth [place] 00 every 6 Medical (six) Branch hours as needed for Pain (scale 7-10) (MUSCLE SPASM). ciprofloxac 2021-0 Yes TAKE 1 Yariel mariza in 500 mg 4-19 TABLET BY l oral tablet 17:15: MOUTH [facility] nn 00 TWICE DAILY ciprofloxac 2021-0 Yes TAKE 1 Yariel mariza in 500 mg 4-19 TABLET BY l oral tablet 17:15: MOUTH [facility] nn 00 TWICE DAILY ciprofloxac 2021-0 Yes TAKE 1 Yariel mariza in 500 mg 4-19 TABLET BY l oral tablet 17:15: MOUTH [place] nn 00 TWICE DAILY ciprofloxac 2021-0 Yes TAKE 1 Yariel mariza in 500 mg 4-19 TABLET BY l oral tablet 17:15: MOUTH [place] nn 00 TWICE DAILY ciprofloxac 2021-0 Yes TAKE 1 Yariel mariza in 500 mg 4-19 TABLET BY l oral tablet 17:15: MOUTH [place] nn 00 TWICE DAILY ciprofloxac 2021-0 Yes TAKE 1 Yariel mariza in 500 mg 4-19 TABLET BY l oral tablet 17:15: MOUTH [facility] nn 00 TWICE DAILY pregabalin 2020-10 Yes 50 mg = 1 Me moria 50 MG Oral 1-22 cap, PO, l Capsule 22:06: Bedtime, # Herm billie [Lyrica] 00 30 cap, 3 Refill(s), Pharmacy: [facility] #[id number], 162.56, cm, 09/18/21 15:13:00 [employer], Height, 93.182, kg, 09/18/21 15:13:00 [employer], Weight pregabalin 2020-10 Yes 50 mg = 1 Me moria 50 MG Oral 1-22 cap, PO, l Capsule 22:06: Bedtime, # Marty bilile [Lyrica] 00 30 cap, 3 Refill(s), Pharmacy: [facility] #[id number], 162.56, cm, 09/18/21 15:13:00 [employer], Height, 93.182, kg, 09/18/21 15:13:00 [employer], Weight pregabalin 2020-10 Yes 50 mg = 1 Me moria 50 MG Oral 1-22 cap, PO, l Capsule 22:06: Bedtime, # Marty billie [Lyrica] 00 30 cap, 3 Refill(s), Pharmacy: [facility] #[id number], 162.56, cm, 09/18/21 15:13:00 [employer], Height, 93.182, kg, 09/18/21 15:13:00 [employer], Weight pregabalin 2020-10 Yes 50 mg = 1 Me moria 50 MG Oral 1-22 cap, PO, l Capsule 22:06: Bedtime, # Marty billie [Lyrica] 00 30 cap, 3 Refill(s), Pharmacy: [facility] #[id number], 162.56, cm, 09/18/21 15:13:00 [employer], Height, 93.182, kg, 09/18/21 15:13:00 [employer], Weight pregabalin 2020-10 Yes 50 mg = 1 Me moria 50 MG Oral 1-22 cap, PO, l Capsule 22:06: Bedtime, # Marty billie [Lyrica] 00 30 cap, 3 Refill(s), Pharmacy: [facility] #[id number], 162.56, cm, 09/18/21 15:13:00 [employer], Height, 93.182, kg, 09/18/21 15:13:00 [employer], Weight pregabalin 2020-10 Yes 50 mg = 1 Me moria 50 MG Oral 1-22 cap, PO, l Capsule 22:06: Bedtime, # Marty billie [Lyrica] 00 30 cap, 3 Refill(s), Pharmacy: [facility] #[id number], 162.56, cm, 09/18/21 15:13:00 [employer], Height, 93.182, kg, 09/18/21 15:13:00 [employer], Weight amLODIPine 2020-10 Yes 5 mg = 1 Mem oria 5 mg oral 0-19 tab, PO, l tablet 20:47: Daily, # Adam 00 90 tab, 0 Refill(s) tamsulosin 2020-10 Yes 0.4 mg = 1 M emoria 0.4 mg oral 0-19 cap, PO, l capsule 20:47: Daily, # Slava n 00 30 cap, 0 Refill(s) celecoxib 2020-10 Yes 200 mg = 1 Me moria 200 mg oral 0-19 cap, PO, l capsule 20:47: Daily, # Slava n 00 30 cap, 0 Refill(s) amLODIPine 2020-10 Yes 5 mg = 1 Mem oria 5 mg oral 0-19 tab, PO, l tablet 20:47: Daily, # [place] 00 90 tab, 0 Refill(s) tamsulosin 2020-10 Yes 0.4 mg = 1 M emoria 0.4 mg oral 0-19 cap, PO, l capsule 20:47: Daily, # Slava n 00 30 cap, 0 Refill(s) celecoxib 2020-10 Yes 200 mg = 1 Me moria 200 mg oral 0-19 cap, PO, l capsule 20:47: Daily, # Slava n 00 30 cap, 0 Refill(s) amLODIPine 2020-10 Yes 5 mg = 1 Mem oria 5 mg oral 0-19 tab, PO, l tablet 20:47: Daily, # [place] 00 90 tab, 0 Refill(s) tamsulosin 2020-10 Yes 0.4 mg = 1 M emoria 0.4 mg oral 0-19 cap, PO, l capsule 20:47: Daily, # Slava n 00 30 cap, 0 Refill(s) celecoxib 2020-10 Yes 200 mg = 1 Me moria 200 mg oral 0-19 cap, PO, l capsule 20:47: Daily, # Slava n 00 30 cap, 0 Refill(s) amLODIPine 2020-10 Yes 5 mg = 1 Mem oria 5 mg oral 0-19 tab, PO, l tablet 20:47: Daily, # [place] 00 90 tab, 0 Refill(s) tamsulosin 2020-10 Yes 0.4 mg = 1 M emoria 0.4 mg oral 0-19 cap, PO, l capsule 20:47: Daily, # Slava n 00 30 cap, 0 Refill(s) celecoxib 2020-10 Yes 200 mg = 1 Me moria 200 mg oral 0-19 cap, PO, l capsule 20:47: Daily, # Slava n 00 30 cap, 0 Refill(s) amLODIPine 2020-10 Yes 5 mg = 1 Mem oria 5 mg oral 0-19 tab, PO, l tablet 20:47: Daily, # [place] 00 90 tab, 0 Refill(s) tamsulosin 2020-10 Yes 0.4 mg = 1 M emoria 0.4 mg oral 0-19 cap, PO, l capsule 20:47: Daily, # Slava n 00 30 cap, 0 Refill(s) celecoxib 2020-10 Yes 200 mg = 1 Me moria 200 mg oral 0-19 cap, PO, l capsule 20:47: Daily, # Slava n 00 30 cap, 0 Refill(s) amLODIPine 2020-10 Yes 5 mg = 1 Mem oria 5 mg oral 0-19 tab, PO, l tablet 20:47: Daily, # [place] 00 90 tab, 0 Refill(s) tamsulosin 2020-10 Yes 0.4 mg = 1 M emoria 0.4 mg oral 0-19 cap, PO, l capsule 20:47: Daily, # Slava n 00 30 cap, 0 Refill(s) celecoxib 2020-10 Yes 200 mg = 1 Me moria 200 mg oral 0-19 cap, PO, l capsule 20:47: Daily, # Slava n 00 30 cap, 0 Refill(s) 24 HR 2020-10 Yes 5 mg = 1 Memoria Glipizide 5 0-19 tab, PO, l MG Extended 20:46: Breakfast, [place] Release 00 # 30 tab, Tablet 0 Refill(s) rosuvastati 2020-10 Yes 10 mg = 1 M emoria n 10 mg 0-19 tab, PO, l oral tablet 20:46: Bedtime, # [place] 00 30 tab, 0 Refill(s) sitagliptin 2020-10 Yes 100 mg = 1 Memoria 100 MG Oral 0-19 tab, PO, l Tablet 20:46: Daily, # [place] [Januvia] 00 30 tab, 0 Refill(s) 24 HR 2020-10 Yes 5 mg = 1 Memoria Glipizide 5 0-19 tab, PO, l MG Extended 20:46: Breakfast, [place] Release 00 # 30 tab, Tablet 0 Refill(s) rosuvastati 2020-10 Yes 10 mg = 1 M emoria n 10 mg 0-19 tab, PO, l oral tablet 20:46: Bedtime, # [place] 00 30 tab, 0 Refill(s) sitagliptin 2020-10 Yes 100 mg = 1 Memoria 100 MG Oral 0-19 tab, PO, l Tablet 20:46: Daily, # [place] [Octuvia] 00 30 tab, 0 Refill(s) 24 HR 2020-10 Yes 5 mg = 1 Memoria Glipizide 5 0-19 tab, PO, l MG Extended 20:46: Breakfast, [place] Release 00 # 30 tab, Tablet 0 Refill(s) rosuvastati 2020-10 Yes 10 mg = 1 M emoria n 10 mg 0-19 tab, PO, l oral tablet 20:46: Bedtime, # [place] 00 30 tab, 0 Refill(s) sitagliptin 2020-10 Yes 100 mg = 1 Memoria 100 MG Oral 0-19 tab, PO, l Tablet 20:46: Daily, # [place] [Octuvia] 00 30 tab, 0 Refill(s) 24 HR 2020-10 Yes 5 mg = 1 Memoria Glipizide 5 0-19 tab, PO, l MG Extended 20:46: Breakfast, [place] Release 00 # 30 tab, Tablet 0 Refill(s) rosuvastati 2020-10 Yes 10 mg = 1 M emoria n 10 mg 0-19 tab, PO, l oral tablet 20:46: Bedtime, # [place] 00 30 tab, 0 Refill(s) sitagliptin 2020-10 Yes 100 mg = 1 Memoria 100 MG Oral 0-19 tab, PO, l Tablet 20:46: Daily, # [place] [Januvia] 00 30 tab, 0 Refill(s) 24 HR 2020-10 Yes 5 mg = 1 Memoria Glipizide 5 0-19 tab, PO, l MG Extended 20:46: Breakfast, [place] Release 00 # 30 tab, Tablet 0 Refill(s) rosuvastati 2020-10 Yes 10 mg = 1 M emoria n 10 mg 0-19 tab, PO, l oral tablet 20:46: Bedtime, # [place] 00 30 tab, 0 Refill(s) sitagliptin 2020-10 Yes 100 mg = 1 Memoria 100 MG Oral 0-19 tab, PO, l Tablet 20:46: Daily, # [place] [Januvia] 00 30 tab, 0 Refill(s) 24 [place] 2020-10 Yes 5 mg = 1 Memoria Glipizide 5 0-19 tab, PO, l MG Extended 20:46: Breakfast, [place] Release 00 # 30 tab, Tablet 0 Refill(s) rosuvastati 2020-10 Yes 10 mg = 1 M emoria n 10 mg 0-19 tab, PO, l oral tablet 20:46: Bedtime, # [place] 00 30 tab, 0 Refill(s) sitagliptin 2020-10 Yes 100 mg = 1 Memoria 100 MG Oral 0-19 tab, PO, l Tablet 20:46: Daily, # [place] [Januvia] 00 30 tab, 0 Refill(s) metoprolol 2020-0 Yes 12.5mg Take 0.5 U nivers succinate 6-01 tablets by ity of XL (TOPROL 00:00: mouth [place] XL[place] 25 mg 00 (two) Medical 24 hr times Branch tablet daily. metoprolol 2020-0 Yes 12.5mg Take 0.5 U nivers succinate 6-01 tablets by ity of XL (TOPROL 00:00: mouth [place] 25 mg 00 (two) Medical 24 hr times Branch tablet daily. metoprolol 2020-0 Yes 12.5mg Take 0.5 U nivers succinate 6-01 tablets by ity of XL (TOPROL 00:00: mouth [place] 25 mg 00 (two) Medical 24 hr times Branch tablet daily. metoprolol 2020-0 Yes 12.5mg Take 0.5 U nivers succinate 6-01 tablets by ity of XL (TOPROL 00:00: mouth [place] 25 mg 00 (two) Medical 24 hr times Branch tablet daily. metoprolol 2020-0 Yes 12.5mg Take 0.5 U nivers succinate 6-01 tablets by ity of XL (TOPROL 00:00: mouth [place] 25 mg 00 (two) Medical 24 hr times Branch tablet daily. metoprolol 2020-0 Yes 12.5mg Take 0.5 U nivers succinate 6-01 tablets by ity of XL (TOPROL 00:00: mouth [place]) 25 mg 00 (two) Medical 24 hr times Branch tablet daily. metoprolol 2020-0 Yes 12.5mg Take 0.5 U nivers succinate 6-01 tablets by ity of XL (TOPROL 00:00: mouth [place] XL) 25 mg 00 (two) Medical 24 hr times Branch tablet daily. metoprolol 2020-0 Yes 12.5mg Take 0.5 U nivers succinate 6-01 tablets by ity of XL (TOPROL 00:00: mouth [place] XL) 25 mg 00 (two) Medical 24 hr times Branch tablet daily. metoprolol 2020-0 Yes 12.5mg Take 0.5 U nivers succinate 6-01 tablets by ity of XL (TOPROL 00:[place] 25 mg 00 (two) [facility] 24 hr times [facility] tablet daily. metoprolol 2020-0 Yes 12.5mg Take 0.5 [facility] n[facility] succinate 6-01 tablets by [facility] XL (TOPROL 00:00: [place] 25 mg 00 (two) [facility] 24 hr times [facility] tablet daily. metoprolol 2020-0 Yes 12.5mg Take 0.5 [facility] succinate 6-01 tablets by [facility] XL (TOPROL 00:00: [place] 25 mg 00 (two) [facility] 24 hr times [facility] tablet daily. metoprolol 2020-0 Yes 12.5mg Take 0.5 [facility] n[facility] succinate 6-01 tablets by [facility] (TOPROL 00:00: [place] 25 mg 00 (two) [facility] 24 hr times [facility] tablet daily. metoprolol 2020-0 Yes 12.5mg Take 0.5 [facility] n[facility] succinate 6-01 tablets by [facility] XL (TOPROL 00:00: [place] XL[place] 25 mg 00 (two) Medical 24 hr times [facility] tablet daily. metoprolol 2020-0 Yes 12.5mg Take 0.5 U nivers succinate 6-01 tablets by [facility] XL (TOP[place]OL [place] 25 mg 00 (two) Medical 24 hr times Branch tablet daily. metoprolol 2020-0 Yes 12.5mg Take 0.5 U nivers succinate 6-01 tablets by [facility] XL (TOPROL 00:[place] 25 mg 00 (two) Medical 24 hr times Branch tablet daily. metoprolol 2020-0 Yes 12.5mg Take 0.5 U nivers succinate 6-01 tablets by [facility] XL (TOPROL [place] 25 mg 00 (two) Medical 24 hr times Branch tablet daily. metoprolol 2020-0 Yes 12.5mg Take 0.5 U nivers succinate 6-01 tablets by [facility] [place] (TOPROL [place]: [place] 25 mg 00 (two) Medical 24 hr times Branch tablet daily. metoprolol 2020-0 Yes 12.5mg Take 0.5 U nivers succinate 6-01 tablets by [facility] XL (TOPROL [place]: [place] 25 mg 00 (two) Medical 24 hr times Branch tablet daily. metoprolol 2020-0 Yes 12.5mg Take 0.5 U nivers succinate 6-01 tablets by [facility] XL (TOPROL [place]: [place] 25 mg 00 (two) Medical 24 hr times Branch tablet daily. metoprolol 2020-0 Yes 12.5mg Take 0.5 U nivers succinate 6-01 tablets by [facility] XL (TOPROL 00:[place]: [place] XL[place] 25 mg 00 (two) Medical 24 hr times Branch tablet daily. metoprolol 2020-0 Yes 12.5mg Take 0.5 U nivers succinate 6-01 tablets by [facility] XL (TOPROL 00:00: [place] XL) 25 mg 00 (two) Medical 24 hr times Branch tablet daily. metoprolol 2020-0 Yes 12.5mg Take 0.5 U nivers succinate 6-01 tablets by [facility] XL (TOPROL 00:00: [place] XL[place] 25 mg 00 (two) Medical 24 hr times Branch tablet daily. metoprolol 2020-0 Yes 12.5mg Take 0.5 U nivers succinate 6-01 tablets by [facility] XL (TOPROL 00:00: [place] XL) 25 mg 00 (two) Medical 24 hr times Branch tablet daily. metoprolol 2020-0 Yes 12.5mg Take 0.5 U nivers succinate 6-01 tablets by [facility] XL (TOPROL 00:00: [place] XL[place] 25 mg 00 (two) Medical 24 hr times Branch tablet daily. metoprolol 2020-0 Yes 12.5mg Take 0.5 U nivers succinate 6-01 tablets by [facility] XL (TOPROL 00:00: [place] XL) 25 mg 00 (two) Medical 24 hr times Branch tablet daily. metoprolol 2020-0 Yes 12.5mg Take 0.5 U nivers succinate 6-01 tablets by [facility] XL (TOPROL 00:00: [place] XL) 25 mg 00 (two) Medical 24 hr times Branch tablet daily. metoprolol 2020-0 Yes 12.5mg Take 0.5 U nivers succinate 6-01 tablets by [facility] XL (TOPROL 00:00: [place] XL) 25 mg 00 (two) Medical 24 hr times Branch tablet daily. amLODIPine 2020-0 Yes 5mg Take 1 [facility] rs 5 mg tablet 4-16 tablet by ity of 00:00: mouth (two) Medical times Branch daily. amLODIPine 2020-0 Yes 5mg Take 1 [facility] rs 5 mg tablet 4-16 tablet by ity of 00:00: mouth (two) Medical times Branch daily. amLODIPine 2020-0 Yes 5mg Take 1 [facility] rs 5 mg tablet 4-16 tablet by ity of 00:00: mouth 2 (two) Medical times Branch daily. amLODIPine 2020-0 Yes 5mg Take 1 [facility] rs 5 mg tablet 4-16 tablet by ity of 00:00: mouth 2 (two) Medical times Branch daily. amLODIPine 2020-0 Yes 5mg Take 1 [facility] rs 5 mg tablet 4-16 tablet by ity of 00:00: mouth 2 (two) Medical times Branch daily. amLODIPine 2020-0 Yes 5mg Take 1 [facility] rs 5 mg tablet 4-16 tablet by ity of 00:00: mouth 2 (two) Medical times Branch daily. amLODIPine 2020-0 Yes 5mg Take 1 [facility] rs 5 mg tablet 4-16 tablet by ity of 00:00: mouth (two) Medical times Branch daily. amLODIPine 2020-0 Yes 5mg Take 1 [facility] 5 mg tablet 4-16 tablet by ity of 00:00: mouth (two) Medical times Branch daily. amLODIPine 2020-0 Yes 5mg Take 1 [facility] rs 5 mg tablet 4-16 tablet by ity of 00:00: mouth (two) Medical times Branch daily. amLODIPine 2020-0 Yes 5mg Take 1 [facility] rs 5 mg tablet 4-16 tablet by ity of 00:00: mouth (two) Medical times Branch daily. amLODIPine 2020-0 Yes 5mg Take 1 [facility] rs 5 mg tablet 4-16 tablet by ity of 00:00: mouth (two) Medical times Branch daily. amLODIPine 2020-0 Yes 5mg Take 1 [facility] rs 5 mg tablet 4-16 tablet by ity of 00:00: mouth (two) Medical times Branch daily. amLODIPine 2020-0 Yes 5mg Take 1 [facility] rs 5 mg tablet 4-16 tablet by ity of 00:00: mouth (two) Medical times Branch daily. amLODIPine 2020-0 Yes 5mg Take 1 [facility] rs 5 mg tablet 4-16 tablet by ity of 00:00: mouth (two) Medical times Branch daily. amLODIPine 2020-0 Yes 5mg Take 1 [facility] rs 5 mg tablet 4-16 tablet by ity of 00:00: mouth (two) Medical times Branch daily. amLODIPine 2020-0 Yes 5mg Take 1 [facility] rs 5 mg tablet 4-16 tablet by ity of 00:00: mouth (two) Medical times Branch daily. amLODIPine 2020-0 Yes 5mg Take 1 [facility] rs 5 mg tablet 4-16 tablet by ity of 00:00: mouth (two) Medical times Branch daily. amLODIPine 2020-0 Yes 5mg Take 1 [facility] rs 5 mg tablet 4-16 tablet by ity of 00:00: mouth (two) Medical times Branch daily. amLODIPine 2020-0 Yes 5mg Take 1 [facility] rs 5 mg tablet 4-16 tablet by ity of 00:00: mouth 2 (two) Medical times Branch daily. amLODIPine 2020-0 Yes 5mg Take 1 [facility] rs 5 mg tablet 4-16 tablet by ity of 00:00: mouth 2 (two) Medical times Branch daily. amLODIPine 2020-0 Yes 5mg Take 1 [facility] rs 5 mg tablet 4-16 tablet by ity of 00:00: mouth 2 (two) Medical times Branch daily. amLODIPine 2020-0 Yes 5mg Take 1 [facility] rs 5 mg tablet 4-16 tablet by ity of 00:00: mouth 2 (two) Medical times Branch daily. amLODIPine 2020-0 Yes 5mg Take 1 [facility] rs 5 mg tablet 4-16 tablet by ity of 00:00: mouth 2 (two) Medical times Branch daily. amLODIPine 2020-0 Yes 5mg Take 1 [facility] rs 5 mg tablet 4-16 tablet by ity of 00:00: mouth (two) Medical times Branch daily. amLODIPine 2020-0 Yes 5mg Take 1 [facility] rs 5 mg tablet 4-16 tablet by ity of 00:00: mouth (two) Medical times Branch daily. amLODIPine 2020-0 Yes 5mg Take 1 [facility] rs 5 mg tablet 4-16 tablet by ity of 00:00: mouth (two) Medical times Branch daily. amLODIPine 2020-0 Yes 5mg Take 1 [facility] rs 5 mg tablet 4-16 tablet by ity of 00:00: mouth 2 (two) Medical times Branch daily. nitroglycer 2020-[id number] 1 [facility] in 0.4 mg 1-23 tablet ity of sublingual 00:00: under the [place] tablet 00 tongue Medical every 5 Branch (five) minutes as needed for Chest pain. nitroglycer 2020-[id number] 1 [facility] in 0.4 mg 1-23 tablet ity of sublingual 00:00: under the [place] tablet 00 tongue Medical every 5 Branch (five) minutes as needed for Chest pain. nitroglycer 2020-[id number] 1 [facility] in 0.4 mg 1-23 tablet ity of sublingual 00:00: under the [place] tablet 00 tongue Medical every 5 Branch (five) minutes as needed for Chest pain. nitroglycer 2020-[id number] 1 [facility] in 0.4 mg 1-23 tablet ity of sublingual 00:00: under the [place] tablet 00 tongue Medical every 5 Branch (five) minutes as needed for Chest pain. nitroglycer 2020-[id number] 1 [facility] in 0.4 mg 1-23 tablet ity of sublingual 00:00: under the [place] tablet 00 tongue Medical every 5 Branch (five) minutes as needed for Chest pain. nitroglycer 2020-[id number] 1 [facility] in 0.4 mg 1-23 tablet ity of sublingual 00:00: under the [place] tablet 00 tongue Medical every 5 Branch (five) minutes as needed for Chest pain. nitroglycer 2020-[id number] 1 [facility] in 0.4 mg 1-23 tablet ity of sublingual 00:00: under the [place] tablet 00 tongue Medical every 5 Branch (five) minutes as needed for Chest pain. nitroglycer 2020-[id number] 1 [facility] in 0.4 mg 1-23 tablet ity of sublingual 00:00: under the [place] tablet 00 tongue Medical every 5 Branch (five) minutes as needed for Chest pain. nitroglycer 2020-[id number] 1 [facility] in 0.4 mg 1-23 tablet ity of sublingual 00:00: under the [place] tablet 00 tongue Medical every 5 Branch (five) minutes as needed for Chest pain. nitroglycer 2020-[id number] 1 [facility] in 0.4 mg 1-23 tablet ity of sublingual 00:00: under the [place] tablet 00 tongue Medical every 5 Branch (five) minutes as needed for Chest pain. nitroglycer 2020-[id number] 1 [facility] in 0.4 mg 1-23 tablet ity of sublingual 00:00: under the [place] tablet 00 tongue Medical every 5 Branch (five) minutes as needed for Chest pain. nitroglycer 2020-[id number] 1 [facility] in 0.4 mg 1-23 tablet ity of sublingual 00:00: under the [place] tablet 00 tongue Medical every 5 Branch (five) minutes as needed for Chest pain. nitroglycer 2020-[id number] 1 [facility] in 0.4 mg 1-23 tablet ity of sublingual 00:00: under the [place] tablet 00 tongue Medical every 5 Branch (five) minutes as needed for Chest pain. nitroglycer 2020-[id number] 1 [facility] in 0.4 mg 1-23 tablet ity of sublingual 00:00: under the [place] tablet 00 tongue Medical every 5 Branch (five) minutes as needed for Chest pain. nitroglycer 2020-[id number] 1 [facility] in 0.4 mg 1-23 tablet ity of sublingual 00:00: under the [place] tablet 00 tongue Medical every 5 Branch (five) minutes as needed for Chest pain. nitroglycer 2020-[id number] 1 [facility] in 0.4 mg 1-23 tablet ity of sublingual 00:00: under the [place] tablet 00 tongue Medical every 5 Branch (five) minutes as needed for Chest pain. nitroglycer 2020-[id number] 1 [facility] in 0.4 mg 1-23 tablet ity of sublingual 00:00: under the [place] tablet 00 tongue Medical every 5 Branch (five) minutes as needed for Chest pain. nitroglycer 2020-[id number] 1 [facility] in 0.4 mg 1-23 tablet ity of sublingual 00:00: under the [place] tablet 00 tongue Medical every 5 Branch (five) minutes as needed for Chest pain. nitroglycer 2020-[id number] 1 [facility] in 0.4 mg 1-23 tablet ity of sublingual 00:00: under the [place] tablet 00 tongue Medical every 5 Branch (five) minutes as needed for Chest pain. nitroglycer 2020-[id number] 1 [facility] in 0.4 mg 1-23 tablet ity of sublingual 00:00: under the [place] tablet 00 tongue Medical every 5 Branch (five) minutes as needed for Chest pain. nitroglycer 2020-[id number] 1 [facility] in 0.4 mg 1-23 tablet ity of sublingual 00:00: under the [place] tablet 00 tongue Medical every 5 Branch (five) minutes as needed for Chest pain. nitroglycer 2020-[id number] 1 [facility] in 0.4 mg 1-23 tablet ity of sublingual 00:00: under the [place] tablet 00 tongue Medical every 5 Branch (five) minutes as needed for Chest pain. nitroglycer 2020-[id number] 1 [facility] in 0.4 mg 1-23 tablet ity of sublingual 00:00: under the [place] tablet 00 tongue Medical every 5 Branch (five) minutes as needed for Chest pain. nitroglycer 2020-[id number] 1 [facility] in 0.4 mg 1-23 tablet ity of sublingual 00:00: under the [place] tablet 00 tongue Medical every 5 Branch (five) minutes as needed for Chest pain. nitroglycer 2020-[id number] 1 [facility] in 0.4 mg 1-23 tablet ity of sublingual 00:00: under the [place] tablet 00 tongue Medical every 5 Branch (five) minutes as needed for Chest pain. nitroglycer 2020-[id number] 1 [facility] in 0.4 mg 1-23 tablet ity of sublingual 00:00: under the [place] tablet 00 tongue Medical every 5 Branch (five) minutes as needed for Chest pain. nitroglycer 2020-[id number] 1 [facility] in 0.4 mg 1-23 tablet ity of sublingual 00:00: under the [place] tablet 00 tongue Medical every 5 Branch (five) minutes as needed for Chest pain. albuterol 2020-0 Yes [id number] 2{puff} Inhale 2 [facility] 90 1-16 Puffs ity of mcg/actuati 00:00: every 6 [place] [facility] on inhaler 00 (six) Medical hours as Branch needed for Wheezing or Shortness of Breath. albuterol 2020-0 Yes [id number] 2{puff} Inhale 2 [facility] 90 1-16 Puffs ity of mcg/actuati 00:00: every 6 [place] [facility] on inhaler 00 (six) Medical hours as Branch needed for Wheezing or Shortness of Breath. albuterol 2020-0 Yes [id number] 2{puff} Inhale 2 [facility] 90 1-16 Puffs ity of mcg/actuati 00:00: every 6 [place] [facility] inhaler 00 (six) Medical hours as Branch needed for Wheezing or Shortness of Breath. albuterol 2020-0 Yes [id number] 2{puff} Inhale 2 [facility] 90 1-16 Puffs ity of mcg/actuati 00:00: every 6 [place] [facility] inhaler 00 (six) Medical hours as Branch needed for Wheezing or Shortness of Breath. albuterol 2020-0 Yes [id number] 2{puff} Inhale 2 [facility] 90 1-16 Puffs ity of mcg/actuati 00:00: every 6 [place] [facility] on inhaler 00 (six) Medical hours as Branch needed for Wheezing or Shortness of Breath. albuterol 2019-0 Yes [id number] 2{puff} Inhale 2 [facility] 90 1-16 Puffs ity of mcg/actuati 00:00: every 6 [place] [facility] on inhaler 00 (six) Medical hours as Branch needed for Wheezing or Shortness of Breath. albuterol 2019-0 Yes [id number] 2{puff} Inhale 2 [facility] 90 1-16 Puffs ity of mcg/actuati 00:00: every 6 [place] [facility] on inhaler 00 (six) Medical hours as Branch needed for Wheezing or Shortness of Breath. albuterol 2020-0 Yes [id number] 2{puff} Inhale 2 [facility] 90 1-16 Puffs ity of mcg/actuati 00:00: every 6 [place] [facility] on inhaler 00 (six) Medical hours as Branch needed for Wheezing or Shortness of Breath. albuterol 2020-0 Yes [id number] 2{puff} Inhale 2 [facility] 90 1-16 Puffs ity of mcg/actuati 00:00: every 6 [place] [facility] on inhaler 00 (six) Medical hours as Branch needed for Wheezing or Shortness of Breath. albuterol 2020-0 Yes [id number] 2{puff} Inhale 2 [facility] 90 1-16 Puffs ity of mcg/actuati 00:00: every 6 [place] [facility] on inhaler 00 (six) Medical hours as Branch needed for Wheezing or Shortness of Breath. albuterol 2020-0 Yes [id number] 2{puff} Inhale 2 [facility] 90 1-16 Puffs ity of mcg/actuati 00:00: every 6 [place] [facility] on inhaler 00 (six) Medical hours as Branch needed for Wheezing or Shortness of Breath. albuterol 2020-0 Yes [id number] 2{puff} Inhale 2 [facility] 90 1-16 Puffs ity of mcg/actuati 00:00: every 6 [place] [facility] on inhaler 00 (six) Medical hours as Branch needed for Wheezing or Shortness of Breath. albuterol 2020-0 Yes [id number] 2{puff} Inhale 2 [facility] 90 1-16 Puffs ity of mcg/actuati 00:00: every 6 [place] [facility] on inhaler 00 (six) Medical hours as Branch needed for Wheezing or Shortness of Breath. albuterol 2020-0 Yes [id number] 2{puff} Inhale 2 [facility] 90 1-16 Puffs ity of mcg/actuati 00:00: every 6 [place] [facility] on inhaler 00 (six) Medical hours as Branch needed for Wheezing or Shortness of Breath. albuterol 2020-0 Yes [id number] 2{puff} Inhale 2 [facility] 90 1-16 Puffs ity of mcg/actuati 00:00: every 6 [place] [facility] on inhaler 00 (six) Medical hours as Branch needed for Wheezing or Shortness of Breath. albuterol 2020-0 Yes [id number] 2{puff} Inhale 2 [facility] 90 1-16 Puffs ity of mcg/actuati 00:00: every 6 [place] [facility] on inhaler 00 (six) Medical hours as Branch needed for Wheezing or Shortness of Breath. albuterol 2020-0 Yes [id number] 2{puff} Inhale 2 [facility] 90 1-16 Puffs ity of mcg/actuati 00:00: every 6 [place] [facility] on inhaler 00 (six) Medical hours as Branch needed for Wheezing or Shortness of Breath. albuterol 2020-0 Yes [id number] 2{puff} Inhale 2 [facility] 90 1-16 Puffs ity of mcg/actuati 00:00: every 6 [place] [facility] on inhaler 00 (six) Medical hours as Branch needed for Wheezing or Shortness of Breath. albuterol 2020-0 Yes [id number] 2{puff} Inhale 2 [facility] 90 1-16 Puffs ity of mcg/actuati 00:00: every 6 [place] as on inhaler 00 (six) Medical hours as Branch needed for Wheezing or Shortness of Breath. albuterol 2020-0 Yes [id number] 2{puff} Inhale 2 [facility] 90 1-16 Puffs ity of mcg/actuati 00:00: every 6 [place] as on inhaler 00 (six) Medical hours as Branch needed for Wheezing or Shortness of Breath. albuterol 2019-0 Yes [id number] 2{puff} Inhale 2 [facility] 90 1-16 Puffs ity of mcg/actuati 00:00: every 6 [place] as on inhaler 00 (six) Medical hours as Branch needed for Wheezing or Shortness of Breath. albuterol 2019-0 Yes [id number] 2{puff} Inhale 2 [facility] 90 1-16 Puffs ity of mcg/actuati 00:00: every 6 [place] as on inhaler 00 (six) Medical hours as Branch needed for Wheezing or Shortness of Breath. albuterol 2019-0 Yes [id number] 2{puff} Inhale 2 [facility] 90 1-16 Puffs ity of mcg/actuati 00:00: every 6 [place] as on inhaler 00 (six) Medical hours as Branch needed for Wheezing or Shortness of Breath. albuterol 2019-0 Yes [id number] 2{puff} Inhale 2 [facility] 90 1-16 Puffs ity of mcg/actuati 00:00: every 6 [place] as on inhaler 00 (six) Medical hours as Branch needed for Wheezing or Shortness of Breath. albuterol 2019-0 Yes [id number] 2{puff} Inhale 2 [facility] 90 1-16 Puffs ity of mcg/actuati 00:00: every 6 [place] as on inhaler 00 (six) Medical hours as Branch needed for Wheezing or Shortness of Breath. albuterol 2020-0 Yes [id number] 2{puff} Inhale 2 [facility] 90 1-16 Puffs ity of mcg/actuati 00:00: every 6 [place] as on inhaler 00 (six) Medical hours as Branch needed for Wheezing or Shortness of Breath. albuterol 2020-0 Yes [id number] 2{puff} Inhale 2 [facility] 90 1-16 Puffs ity of mcg/actuati 00:00: every 6 [place] as on inhaler 00 (six) Medical hours as Branch needed for Wheezing or Shortness of Breath. levothyroxi 2019 Yes TK 1 T PO U nivers ne 75 mcg 2-31 QD ity of tablet 00:00: [facility] levothyroxi 2018-10 Yes TK 1 T PO U nivers ne 75 mcg 2-31 QD ity of tablet 00:00: [facility] levothyroxi 2018-10 Yes TK 1 T PO U nivers ne 75 mcg 2-31 QD ity of tablet 00:00: [facility] levothyroxi 2018-10 Yes TK 1 T PO U nivers ne 75 mcg 2-31 QD ity of tablet 00:00: [facility] levothyroxi 2018-10 Yes TK 1 T PO U nivers ne 75 mcg 2-31 QD ity of tablet 00:00: [address] levothyroxi 2018-10 Yes TK 1 T PO U nivers ne 75 mcg 2-31 QD ity of tablet 00:00: [address] levothyroxi 2018-10 Yes TK 1 T PO U nivers ne 75 mcg 2-31 QD ity of tablet 00:00: [address] levothyroxi 2018-10 Yes TK 1 T PO U nivers ne 75 mcg 2-31 QD ity of tablet 00:00: [address] levothyroxi 2018-10 Yes TK 1 T PO U nivers ne 75 mcg 2-31 QD ity of tablet 00:00: [address] levothyroxi 2018-10 Yes TK 1 T PO U nivers ne 75 mcg 2-31 QD ity of tablet 00:00: [address] levothyroxi 2018-10 Yes TK 1 T PO U nivers ne 75 mcg 2-31 QD ity of tablet 00:00: [address] levothyroxi 2018-10 Yes TK 1 T PO U nivers ne 75 mcg 2-31 QD ity of tablet 00:00: [address] levothyroxi 2018-10 Yes TK 1 T PO U nivers ne 75 mcg 2-31 QD ity of tablet 00:00: [address] levothyroxi 2018-10 Yes TK 1 T PO U nivers ne 75 mcg 2-31 QD ity of tablet 00:00: [address] levothyroxi 2018-10 Yes TK 1 T PO U nivers ne 75 mcg 2-31 QD ity of tablet 00:00: [facility] levothyroxi 2019- Yes TK 1 T PO U nivers ne 75 mcg 2-31 QD ity of tablet 00:00: [address] levothyroxi 2018-10 Yes TK 1 T PO U nivers ne 75 mcg 2-31 QD ity of tablet 00:00: [address] levothyroxi 2018-10 Yes TK 1 T PO U nivers ne 75 mcg 2-31 QD ity of tablet 00:00: [address] levothyroxi 2018-10 Yes TK 1 T PO U nivers ne 75 mcg 2-31 QD ity of tablet 00:00: [address] levothyroxi 2018-10 Yes TK 1 T PO U nivers ne 75 mcg 2-31 QD ity of tablet 00:00: [address] levothyroxi 2018-10 Yes TK 1 T PO U nivers ne 75 mcg 2-31 QD ity of tablet 00:00: [address] levothyroxi 2018-10 Yes TK 1 T PO U nivers ne 75 mcg 2-31 QD ity of tablet 00:00: [address] levothyroxi 2018-10 Yes TK 1 T PO U nivers ne 75 mcg 2-31 QD ity of tablet 00:00: [address] levothyroxi 2018-10 Yes TK 1 T PO U nivers ne 75 mcg 2-31 QD ity of tablet 00:00: [address] levothyroxi 2018-10 Yes TK 1 T PO U nivers ne 75 mcg 2-31 QD ity of tablet 00:00: [address] levothyroxi 2018-10 Yes TK 1 T PO U nivers ne 75 mcg 2-31 QD ity of tablet 00:00: [address] levothyroxi 2018-10 Yes TK 1 T PO U nivers ne 75 mcg 2-31 QD ity of tablet 00:00: [address] DULoxetine 2018-10 Yes TK 1 C PO Un [place] 60 mg 2-27 D ity of capsule 00:00: [address] DULoxetine 2018-10 Yes TK 1 C PO Un [place] 60 mg 2-27 D ity of capsule 00:00: [address] DULoxetine 2018-10 Yes TK 1 C PO Un [place] 60 mg 2-27 D ity of capsule 00:00: [facility] DULoxetine 2019- Yes TK 1 C PO Un [place] 60 mg 2-27 D ity of capsule 00:00: [address] DULoxetine 2018- Yes TK 1 C PO Un [place] 60 mg 2-27 D ity of capsule 00:00: [address] DULoxetine 2018- Yes TK 1 C PO Un [place] 60 mg 2-27 D ity of capsule 00:00: [address] DULoxetine 2018- Yes TK 1 C PO Un [place] 60 mg 2-27 D ity of capsule 00:00: [address] DULoxetine 2018- Yes TK 1 C PO Un [place] 60 mg 2-27 D ity of capsule 00:00: [address] DULoxetine 2018- Yes TK 1 C PO Un [place] 60 mg 2-27 D ity of capsule 00:00: [address] DULoxetine 2018- Yes TK 1 C PO Un [place] 60 mg 2-27 D ity of capsule 00:00: [address] DULoxetine 2018- Yes TK 1 C PO Un [place] 60 mg 2-27 D ity of capsule 00:00: [address] DULoxetine 2018- Yes TK 1 C PO Un [place] 60 mg 2-27 D ity of capsule 00:00: [address] DULoxetine 2018- Yes TK 1 C PO Un [place] 60 mg 2-27 D ity of capsule 00:00: [address] DULoxetine 2018- Yes TK 1 C PO Un [place] 60 mg 2-27 D ity of capsule 00:00: [address] DULoxetine 2018- Yes TK 1 C PO Un [place] 60 mg 2-27 D ity of capsule 00:00: [address] DULoxetine 2018- Yes TK 1 C PO Un [place] 60 mg 2-27 D ity of capsule 00:00: [address] DULoxetine 2018- Yes TK 1 C PO Un [place] 60 mg 2-27 D ity of capsule 00:00: [address] DULoxetine 2018- Yes TK 1 C PO Un [place] 60 mg 2-27 D ity of capsule 00:00: [address] DULoxetine 2018- Yes TK 1 C PO Un [place] 60 mg 2-27 D ity of capsule 00:00: [facility] DULoxetine 2019- Yes TK 1 C PO Un [place] 60 mg 2-27 D ity of capsule 00:00: [facility] DULoxetine 2019- Yes TK 1 C PO Un [place] 60 mg 2-27 D ity of capsule 00:00: [facility] DULoxetine 2019 Yes TK 1 C PO Un [place] 60 mg 2-27 D ity of capsule 00:00: [facility] DULoxetine 2019- Yes TK 1 C PO Un [place] 60 mg 2-27 D ity of capsule 00:00: [facility] DULoxetine 2019- Yes TK 1 C PO Un [place] 60 mg 2-27 D ity of capsule 00:00: [address] DULoxetine 2019- Yes TK 1 C PO Un [place] 60 mg 2-27 D ity of capsule 00:00: [address] DULoxetine 2019- Yes TK 1 C PO Un [place] 60 mg 2-27 D ity of capsule 00:00: [address] DULoxetine 2019- Yes TK 1 C PO Un [place] 60 mg 2-27 D ity of capsule 00:00: [address] celecoxib 2019- Yes TK 1 C PO Uni [facility] 200 mg 2-23 D ity of capsule 00:00: [address] celecoxib 2019- Yes TK 1 C PO Uni vers 200 mg 2-23 D ity of capsule 00:00: [address] celecoxib 2019- Yes TK 1 C PO Uni vers 200 mg 2-23 D ity of capsule 00:00: [address] celecoxib 2019- Yes TK 1 C PO Uni vers 200 mg 2-23 D ity of capsule 00:00: [facility] celecoxib 2019- Yes TK 1 C PO Uni vers 200 mg 2-23 D ity of capsule 00:00: [address] celecoxib 2019- Yes TK 1 C PO Uni vers 200 mg 2-23 D ity of capsule 00:00: [address] celecoxib 2019- Yes TK 1 C PO Uni vers 200 mg 2-23 D ity of capsule 00:00: [address] Branch celecoxib 2019- Yes TK 1 C PO Uni vers 200 mg 2-23 D ity of capsule 00:00: [address] Branch celecoxib 2019-1 Yes TK 1 C PO Uni vers 200 mg 2-23 D ity of capsule 00:00: [facility] celecoxib 2019- Yes TK 1 C PO Uni vers 200 mg 2-23 D ity of capsule 00:00: [facility] celecoxib 2019- Yes TK 1 C PO Uni vers 200 mg 2-23 D ity of capsule 00:00: [facility] celecoxib 2019- Yes TK 1 C PO Uni vers 200 mg 2-23 D ity of capsule 00:00: [facility] celecoxib 2019- Yes TK 1 C PO Uni vers 200 mg 2-23 D ity of capsule 00:00: [facility] celecoxib 2019- Yes TK 1 C PO Uni vers 200 mg 2-23 D ity of capsule 00:00: [address] Branch celecoxib 2019- Yes TK 1 C PO Uni vers 200 mg 2-23 D ity of capsule 00:00: [facility] celecoxib 2019- Yes TK 1 C PO Uni vers 200 mg 2-23 D ity of capsule 00:00: [facility] celecoxib 2019- Yes TK 1 C PO Uni vers 200 mg 2-23 D ity of capsule 00:00: [facility] celecoxib 2019- Yes TK 1 C PO Uni vers 200 mg 2-23 D ity of capsule 00:00: [address] celecoxib 2019- Yes TK 1 C PO Uni vers 200 mg 2-23 D ity of capsule 00:00: [facility] celecoxib 2019- Yes TK 1 C PO Uni vers 200 mg 2-23 D ity of capsule 00:00: [address] Branch celecoxib 2019- Yes TK 1 C PO Uni vers 200 mg 2-23 D ity of capsule 00:00: [facility] celecoxib 2019- Yes TK 1 C PO Uni vers 200 mg 2-23 D ity of capsule 00:00: [place] [address] [facility] celecoxib 2019- Yes TK 1 C PO Uni vers 200 mg 2-23 D ity of capsule 00:00: [address] Branch celecoxib 2019- Yes TK 1 C PO Uni vers 200 mg 2-23 D ity of capsule 00:00: [address] Branch celecoxib 2019- Yes TK 1 C PO Uni vers 200 mg 2-23 D ity of capsule 00:00: [place] [address] [facility] celecoxib 2019- Yes TK 1 C PO Uni vers 200 mg 2-23 D ity of capsule 00:00: [facility] celecoxib 2019- Yes TK 1 C PO Uni vers 200 mg 2-23 D ity of capsule 00:00: [facility] metformin 2019- Yes TK 1 T PO Uni vers ER 500 mg 2-11 D IN THE ity of 24 hr 00:00: CLAUDIA WITH [place] tablet 00 [facility] metformin 2019- Yes TK 1 T PO Uni vers ER 500 mg 2-11 D IN THE ity of 24 hr 00:00: CLAUDIA WITH [place] tablet [facility] metformin 2019- Yes TK 1 T PO Uni vers ER 500 mg 2-11 D IN THE ity of 24 hr 00:00: CLAUDIA WITH [place] tablet [facility] metformin 2019- Yes TK 1 T PO Uni vers ER 500 mg 2-11 D IN THE ity of 24 hr 00:00: CLAUDIA WITH [place] tablet [facility] metformin 2019- Yes TK 1 T PO Uni vers ER 500 mg 2-11 D IN THE ity of 24 hr 00:00: CLAUDIA WITH [place] tablet [facility] metformin 2019- Yes TK 1 T PO Uni vers ER 500 mg 2-11 D IN THE ity of 24 hr 00:00: CLAUDIA WITH [place] tablet [facility] metformin 2019- Yes TK 1 T PO Uni vers ER 500 mg 2-11 D IN THE ity of 24 hr 00:00: CLAUDIA WITH [place] tablet [facility] metformin 2019- Yes TK 1 T PO Uni vers ER 500 mg 2-11 D IN THE ity of 24 hr 00:00: CLAUDIA WITH [place] tablet 00 [facility] metformin 2019- Yes TK 1 T PO Uni vers ER 500 mg 2-11 D IN THE ity of 24 hr 00:00: CLAUDIA WITH [place] tablet 00 [facility] metformin 2019- Yes TK 1 T PO Uni vers ER 500 mg 2-11 D IN THE ity of 24 hr 00:00: CLAUDIA WITH [place] tablet 00 [facility] metformin 2019- Yes TK 1 T PO Uni vers ER 500 mg 2-11 D IN THE ity of 24 hr 00:00: CLAUDIA WITH [place] tablet 00 [facility] metformin 2019- Yes TK 1 T PO Uni vers ER 500 mg 2-11 D IN THE ity of 24 hr 00:00: CLAUDIA WITH [place] tablet 00 [facility] metformin 2019- Yes TK 1 T PO Uni vers ER 500 mg 2-11 D IN THE ity of 24 hr 00:00: CLAUDIA WITH [place] tablet 00 [facility] metformin 2019- Yes TK 1 T PO Uni vers ER 500 mg 2-11 D IN THE ity of 24 hr 00:00: CLAUDIA WITH [place] tablet 00 [facility] metformin 2019- Yes TK 1 T PO Uni vers ER 500 mg 2-11 D IN THE ity of 24 hr 00:00: CLAUDIA WITH [place] tablet [facility] metformin 2018- Yes TK 1 T PO Uni vers ER 500 mg 2-11 D IN THE ity of 24 hr 00:00: CLAUDIA WITH [place] tablet [facility] metformin 2018- Yes TK 1 T PO Uni vers ER 500 mg 2-11 D IN THE ity of 24 hr 00:00: CLAUDIA WITH [place] tablet [facility] metformin 2018- Yes TK 1 T PO Uni vers ER 500 mg 2-11 D IN THE ity of 24 hr 00:00: CLAUDIA WITH [place] tablet [facility] metformin 2019- Yes TK 1 T PO Uni vers ER 500 mg 2-11 D IN THE ity of 24 hr 00:00: CLAUDIA WITH [place] tablet 00 [facility] metformin 2019- Yes TK 1 T PO Uni vers ER 500 mg 2-11 D IN THE ity of 24 hr 00:00: CLAUDIA WITH [place] tablet 00 [facility] metformin 2019- Yes TK 1 T PO Uni vers ER 500 mg 2-11 D IN THE ity of 24 hr 00:00: CLAUDIA WITH [place] tablet 00 [facility] metformin 2019- Yes TK 1 T PO Uni vers ER 500 mg 2-11 D IN THE ity of 24 hr 00:00: CLAUDIA WITH [place] tablet 00 [facility] metformin 2019- Yes TK 1 T PO Uni vers ER 500 mg 2-11 D IN THE ity of 24 hr 00:00: CLAUDIA WITH [place] tablet 00 [facility] metformin 2019- Yes TK 1 T PO Uni vers ER 500 mg 2-11 D IN THE ity of 24 hr 00:00: CLAUDIA WITH [place] tablet 00 [facility] metformin 2019- Yes TK 1 T PO Uni vers ER 500 mg 2-11 D IN THE ity of 24 hr 00:00: CLAUDIA WITH [place] tablet 00 [facility] metformin 2019- Yes TK 1 T PO Uni vers ER 500 mg 2-11 D IN THE ity of 24 hr 00:00: CLAUDIA WITH [place] tablet MEAL [facility] metformin 2019- Yes TK 1 T PO Uni vers ER 500 mg 2-11 D IN THE ity of 24 hr 00:00: CLAUDIA WITH [place] tablet 00 MEAL [facility] omeprazole 2018-10 Yes TK 1 C PO Un oseas 40 mg 1-24 QD ity of capsule 00:00: [place] [facility] omeprazole 2019- Yes TK 1 C PO Un oseas 40 mg 1-24 QD ity of capsule 00:00: [place] [facility] omeprazole 2018-10 Yes TK 1 C PO Un oseas 40 mg 1-24 QD ity of capsule 00:00: [place] [facility] omeprazole 2018- Yes TK 1 C PO Un oseas 40 mg 1-24 QD ity of capsule 00:00: [place] [facility] omeprazole 2018-10 Yes TK 1 C PO Un oseas 40 mg 1-24 QD ity of capsule 00:00: [place] [facility] omeprazole 2018- Yes TK 1 C PO Un oseas 40 mg 1-24 QD ity of capsule 00:00: [place] [facility] omeprazole 2018- Yes TK 1 C PO Un oseas 40 mg 1-24 QD ity of capsule 00:00: [place] [facility] omeprazole 2019- Yes TK 1 C PO Un oseas 40 mg 1-24 QD ity of capsule 00:00: [place] [facility] omeprazole 2018- Yes TK 1 C PO Un oseas 40 mg 1-24 QD ity of capsule 00:00: [place] [facility] omeprazole 2019- Yes TK 1 C PO Un oseas 40 mg 1-24 QD ity of capsule 00:00: [place] [facility] omeprazole 2018- Yes TK 1 C PO Un oseas 40 mg 1-24 QD ity of capsule 00:00: [place] [facility] omeprazole 2019- Yes TK 1 C PO Un oseas 40 mg 1-24 QD ity of capsule 00:00: [place] [facility] omeprazole 2018- Yes TK 1 C PO Un oseas 40 mg 1-24 QD ity of capsule 00:00: [place] [facility] omeprazole 2019- Yes TK 1 C PO Un oseas 40 mg 1-24 QD ity of capsule 00:00: [address] omeprazole 2018-10 Yes TK 1 C PO Un oseas 40 mg 1-24 QD ity of capsule 00:00: [place] [facility] omeprazole 2018-10 Yes TK 1 C PO Un oseas 40 mg 1-24 QD ity of capsule 00:00: [place] [facility] omeprazole 2018-10 Yes TK 1 C PO Un oseas 40 mg 1-24 QD ity of capsule 00:00: [address] omeprazole 2018-10 Yes TK 1 C PO Un oseas 40 mg 1-24 QD ity of capsule 00:00: [place] [facility] omeprazole 2018-10 Yes TK 1 C PO Un oseas 40 mg 1-24 QD ity of capsule 00:00: [address] omeprazole 2018-10 Yes TK 1 C PO Un oseas 40 mg 1-24 QD ity of capsule 00:00: [place] [facility] omeprazole 2018-10 Yes TK 1 C PO Un oseas 40 mg 1-24 QD ity of capsule 00:00: [address] omeprazole 2018-10 Yes TK 1 C PO Un oseas 40 mg 1-24 QD ity of capsule 00:00: [place] [facility] omeprazole 2018-10 Yes TK 1 C PO Un oseas 40 mg 1-24 QD ity of capsule 00:00: [address] omeprazole 2018-10 Yes TK 1 C PO Un oseas 40 mg 1-24 QD ity of capsule 00:00: [place] [facility] omeprazole 2018-10 Yes TK 1 C PO Un oseas 40 mg 1-24 QD ity of capsule 00:00: [address] omeprazole 2018-10 Yes TK 1 C PO Un oseas 40 mg 1-24 QD ity of capsule 00:00: [place] [facility] omeprazole 2018- Yes TK 1 C PO Un oseas 40 mg 1-24 QD ity of capsule 00:00: [address] omeprazole Yes 40mg QD Take [address] [facility] (PRILOSEC) 4-29 by mouth [facility] 40 MG 13:29: daily. Medical capsule 29 [place] tamsulosin Yes .4mg QD Take 0.[address] [facility] (FLOMAX) 4-29 mg by [facility] 0.4 mg Cp24 13:29: mouth Medic al 24 hr 29 daily. Center capsule losartan-hy Yes 1{tbl} QD Take [address] [facility] droCHLOROth 4-29 tablet by [facility] iazide 13:29: mouth Medical (HYZAAR) 29 daily. Center 50-12.5 mg per tablet mometasone- Yes 2{puff} Q.5D Inhale [address] [facility] formoterol 4-29 puffs by [facility] (DULERA) 13:29: mouth via Medi sweta 100-5 29 inhaler 2 [place] mcg/actuati (two) on inhaler times daily. oxybutynin Yes 5mg QD Take [address] [facility] (DITROPAN-X 4-29 by mouth [facility] L) 5 MG 24 13:29: daily. Medic al hr tablet 29 Center levothyroxi Yes 75ug QD Take [address] [facility] ne 4-29 mcg by Maira (SYNTHROID, 13:29: mouth Medic al LEVOTHROID) 29 daily. [place] 75 MCG tablet cholecalcif Yes 1000U QD Take 1,[address] [facility] geoff 4-29 Units by [facility] (VITAMIN 13:29: mouth Medical D3) 1,000 29 daily. [place] unit tablet b complex Yes 1{capsu QD Take [address] [facility] [facility] vitamins 4-29 le} capsule by [facility] capsule 13:29: mouth Medical 29 daily. [place] magnesium Yes 30mg Q.5D Take [address] 30 mg 4-29 by mouth 2 [facility] tablet 13:29: (two) Medical 29 times Center daily. aspirin 81 Yes 81mg QD Take [address] MG EC 4-29 by mouth [facility] tablet 13:29: daily. Medical 29 [place] rosuvastati 2016-10 Yes 2.5mg Take 0.5 U nivers n 5 mg 1-20 tablets by ity of tablet 00:00: mouth. [address] rosuvastati 2016-10 Yes 2.5mg Take 0.5 U nivers n 5 mg 1-20 tablets by ity of tablet 00:00: mouth. [address] rosuvastati 2016-10 Yes 2.5mg Take 0.5 U nivers n 5 mg 1-20 tablets by ity of tablet 00:00: mouth. [address] rosuvastati 2016-10 Yes 2.5mg Take 0.5 U nivers n 5 mg 1-20 tablets by ity of tablet 00:00: mouth. [facility] rosuvastati 2016-10 Yes 2.5mg Take 0.5 U nivers n 5 mg 1-20 tablets by ity of tablet 00:00: mouth. [facility] rosuvastati 2016-10 Yes 2.5mg Take 0.5 U nivers n 5 mg 1-20 tablets by ity of tablet 00:00: mouth. [facility] rosuvastati 2016-10 Yes 10mg Take 10 mg Univers n 5 mg 1-20 by mouth ity of tablet 00:00: daily. [facility] rosuvastati 2016-10 Yes 10mg Take 10 mg Univers n 5 mg 1-20 by mouth ity of tablet 00:00: daily. [facility] rosuvastati 2016-10 Yes 10mg Take 10 mg Univers n 5 mg 1-20 by mouth ity of tablet 00:00: daily. [facility] rosuvastati 2016-10 Yes 10mg Take 10 mg Univers n 5 mg 1-20 by mouth ity of tablet 00:00: daily. [facility] rosuvastati 2016-10 Yes 10mg Take 10 mg Univers n 5 mg 1-20 by mouth ity of tablet 00:00: daily. [facility] rosuvastati 2016-10 Yes 10mg Take 10 mg Univers n 5 mg 1-20 by mouth ity of tablet 00:00: daily. [facility] rosuvastati 2016-10 Yes 10mg Take 10 mg Univers n 5 mg 1-20 by mouth ity of tablet 00:00: daily. [facility] rosuvastati 2016-10 Yes 10mg Take 10 mg Univers n 5 mg 1-20 by mouth ity of tablet 00:00: daily. [facility] rosuvastati 2016-10 Yes 10mg Take 10 mg Univers n 5 mg 1-20 by mouth ity of tablet 00:00: daily. [facility] rosuvastati 2016-10 Yes 10mg Take 10 mg Univers n 5 mg 1-20 by mouth ity of tablet 00:00: daily. [facility] rosuvastati 2016-10 Yes 10mg Take 10 mg Univers n 5 mg 1-20 by mouth ity of tablet 00:00: daily. [facility] rosuvastati 2016-10 Yes 10mg Take 10 mg Univers n 5 mg 1-20 by mouth ity of tablet 00:00: daily. [facility] rosuvastati 2016-10 Yes 10mg Take 10 mg Univers n 5 mg 1-20 by mouth ity of tablet 00:00: daily. [facility] rosuvastati 2016-10 Yes 10mg Take 10 mg Univers n 5 mg 1-20 by mouth ity of tablet 00:00: daily. [place] [facility] rosuvastati 2016-10 Yes 2.5mg Take 0.5 U nivers n 5 mg 1-20 tablets by ity of tablet 00:00: mouth. [place] [facility] rosuvastati 2016-10 Yes 2.5mg Take 0.5 U nivers n 5 mg 1-20 tablets by ity of tablet 00:00: mouth. [place] [facility] rosuvastati 2016-10 Yes 2.5mg Take 0.5 U nivers n 5 mg 1-20 tablets by ity of tablet 00:00: mouth. [facility] rosuvastati 2016-10 Yes 2.5mg Take 0.5 U nivers n 5 mg 1-20 tablets by ity of tablet 00:00: mouth. [place] [facility] rosuvastati 2016-10 Yes 2.5mg Take 0.5 U nivers n 5 mg 1-20 tablets by ity of tablet 00:00: mouth. [place] [facility] rosuvastati 2016-10 Yes 2.5mg Take 0.5 U nivers n 5 mg 1-20 tablets by ity of tablet 00:00: mouth. [facility] rosuvastati 2016-10 Yes 2.5mg Take 0.5 U nivers n 5 mg 1-20 tablets by ity of tablet 00:00: mouth. [place] [facility] tamsulosin 2016-10 Yes TK 1 C PO Un oseas 0.4 mg 24 0-23 QD ity of hr capsule 00:00: [facility] tamsulosin 2016-10 Yes TK 1 C PO Un oseas 0.4 mg 24 0-23 QD ity of hr capsule 00:00: [facility] tamsulosin 2016-10 Yes TK 1 C PO Un oseas 0.4 mg 24 0-23 QD ity of hr capsule 00:00: [facility] tamsulosin 2017 Yes TK 1 C PO Un oseas 0.4 mg 24 0-23 QD ity of hr capsule 00:00: [facility] tamsulosin 2017 Yes TK 1 C PO Un oseas 0.4 mg 24 0-23 QD ity of hr capsule 00:00: [facility] tamsulosin 2016-10 Yes TK 1 C PO Un oseas 0.4 mg 24 0-23 QD ity of hr capsule 00:00: [facility] tamsulosin 2016-10 Yes TK 1 C PO Un oseas 0.4 mg 24 0-23 QD ity of hr capsule 00:00: [facility] tamsulosin 2016-10 Yes TK 1 C PO Un oseas 0.4 mg 24 0-23 QD ity of hr capsule 00:00: [facility] tamsulosin 2016-10 Yes TK 1 C PO Un oseas 0.4 mg 24 0-23 QD ity of hr capsule 00:00: [facility] tamsulosin 2017 Yes TK 1 C PO Un oseas 0.4 mg 24 0-23 QD ity of hr capsule 00:00: [facility] tamsulosin 2016-10 Yes TK 1 C PO Un oseas 0.4 mg 24 0-23 QD ity of hr capsule 00:00: [facility] tamsulosin 2016-10 Yes TK 1 C PO Un oseas 0.4 mg 24 0-23 QD ity of hr capsule 00:00: [facility] tamsulosin 2017 Yes TK 1 C PO Un oseas 0.4 mg 24 0-23 QD ity of hr capsule 00:00: [facility] tamsulosin 2016-10 Yes TK 1 C PO Un oseas 0.4 mg 24 0-23 QD ity of hr capsule 00:00: [facility] tamsulosin 2016-10 Yes TK 1 C PO Un oseas 0.4 mg 24 0-23 QD ity of hr capsule 00:00: [facility] tamsulosin 2016-10 Yes TK 1 C PO Un oseas 0.4 mg 24 0-23 QD ity of hr capsule 00:00: [facility] tamsulosin 2016-10 Yes TK 1 C PO Un oseas 0.4 mg 24 0-23 QD ity of hr capsule 00:00: [facility] tamsulosin 2016-10 Yes TK 1 C PO Un oseas 0.4 mg 24 0-23 QD ity of hr capsule 00:00: [place] [facility] tamsulosin 2016-10 Yes TK 1 C PO Un oseas 0.4 mg 24 0-23 QD ity of hr capsule 00:00: [facility] tamsulosin 2016-10 Yes TK 1 C PO Un oseas 0.4 mg 24 0-23 QD ity of hr capsule 00:00: [place] [facility] tamsulosin 2016-10 Yes TK 1 C PO Un oseas 0.4 mg 24 0-23 QD ity of hr capsule 00:00: [place] [facility] tamsulosin 2016-10 Yes TK 1 C PO Un oseas 0.4 mg 24 0-23 QD ity of hr capsule 00:00: [place] [facility] tamsulosin 2016-10 Yes TK 1 C PO Un oseas 0.4 mg 24 0-23 QD ity of hr capsule 00:00: [facility] tamsulosin 2016-10 Yes TK 1 C PO Un oseas 0.4 mg 24 0-23 QD ity of hr capsule 00:00: [place] [facility] tamsulosin 2016-10 Yes TK 1 C PO Un oseas 0.4 mg 24 0-23 QD ity of hr capsule 00:00: [place] [facility] tamsulosin 2016-10 Yes TK 1 C PO Un oseas 0.4 mg 24 0-23 QD ity of hr capsule 00:00: [place] [facility] tamsulosin 2016-10 Yes TK 1 C PO Un oseas 0.4 mg 24 0-23 QD ity of hr capsule 00:00: [facility] Colace 100 Yes Annmarie C 100 mg, 1 Memoria mg oral 9-25 Amin cap, PO, l capsule 14:39: BID, 20 [place] 46 cap, Substituti on Allowed, CAP Colace 100 Yes Annmarie C 100 mg, 1 Memoria mg oral 9-25 Amin cap, PO, l capsule 14:39: BID, 20 Adam 46 cap, Substituti on Allowed, CAP Colace 100 Yes Annmarie C 100 mg, 1 Memoria mg oral 9-25 Amin cap, PO, l capsule 14:39: BID, 20 [place] 46 cap, Substituti on Allowed, CAP Colace 100 Yes Annmarie C 100 mg, 1 Memoria mg oral 9-25 Amin cap, PO, l capsule 14:39: BID, 20 [place] 46 cap, Substituti on Allowed, CAP Colace 100 Yes Annmarie C 100 mg, 1 Memoria mg oral 9-25 Amin cap, PO, l capsule 14:39: BID, 20 [place] 46 cap, Substituti on Allowed, CAP Colace 100 Yes Annmarie C 100 mg, 1 Memoria mg oral 9-25 Amin cap, PO, l capsule 14:39: BID, 20 [place] 46 cap, Substituti on Allowed, CAP Robaxin-750 Yes Annmarie C 750 mg, 1 [facility] oral tablet 9-25 Amin tab, PO, l 14:38: QID, PRN, Maxwell 03 40 tab, As needed for muscle spasms, Substituti on Allowed, TAB Robaxin-750 Yes Annmarie C 750 mg, 1 [facility]oria oral tablet 9-25 Amin tab, PO, l 14:38: QID, PRN, Adam 03 40 tab, As needed for muscle spasms, Substituti on Allowed, TAB Robaxin-750 Yes Annmarie C 750 mg, 1 Memoria oral tablet 9-25 Amin tab, PO, l 14:38: QID, PRN, Adam 03 40 tab, As needed for muscle spasms, Substituti on Allowed, TAB Robaxin-750 Yes Annmarie C 750 mg, 1 [facility]oria oral tablet 9-25 Amin tab, PO, l 14:38: QID, PRN, Maxwell 03 40 tab, As needed for muscle spasms, Substituti on Allowed, TAB Robaxin-750 Yes Annmarie C 750 mg, 1 Memoria oral tablet 9-25 Amin tab, PO, l 14:38: QID, PRN, Adam 03 40 tab, As needed for muscle spasms, Substituti on Allowed, TAB Robaxin-750 Yes Annmarie C 750 mg, 1 Memoria oral tablet 9-25 Amin tab, PO, l 14:38: QID, PRN, Adam 03 40 tab, As needed for muscle spasms, Substituti on Allowed, TAB Lortab Yes Annmarie C 1 tab, PO, Me moria 7.5/500 9-25 Amin Q6H, PRN, l oral tablet 14:36: 40 tab, as Maxwell 05 needed for pain, Substituti on Allowed, Maintenanc e Lortab Yes Annmarie C 1 tab, PO, Me moria 7.5/500 9-25 Amin Q6H, PRN, l oral tablet 14:36: 40 tab, as Maxwell 05 needed for pain, Substituti on Allowed, Maintenanc e Lortab Yes Annmarie C 1 tab, PO, Me moria 7.5/500 9-25 Amin Q6H, PRN, l oral tablet 14:36: 40 tab, as Adam 05 needed for pain, Substituti on Allowed, Maintenanc e Lortab Yes Annmarie C 1 tab, PO, Me moria 7.5/500 9-25 Amin Q6H, PRN, l oral tablet 14:36: 40 tab, as Maxwell 05 needed for pain, Substituti on Allowed, Maintenanc e Lortab Yes Annmarie C 1 tab, PO, Me moria 7.5/500 9-25 Amin Q6H, PRN, l oral tablet 14:36: 40 tab, as Maxwell 05 needed for pain, Substituti on Allowed, Maintenanc e Lortab Yes Annmarie C 1 tab, PO, Me moria 7.5/500 9-25 Amin Q6H, PRN, l oral tablet 14:36: 40 tab, as Maxwell 05 needed for pain, Substituti on Allowed, Maintenanc e solifenacin No Meng K 5 mg, Mem oria 9-25 Bindal Route: PO, l 14:00: Drug form: [place] 00 TAB, Daily, Dosing Weight 91.42, kg, Start date: 07/22/13 9:00:00, Duration: 30 day, Stop date: 08/20/13 9:00:00 losartan No Meng K 100 mg, 2 Me moria 9-25 [place] tab, l 14:00: Route: PO, Drug form: TAB, Daily, Dosing Weight 91.42, kg, Start date: 07/22/13 9:00:00, Duration: 30 day, Stop date: 08/20/13 9:00:00 Cymbalta 2012-0 No Meng K 30 mg, 1 Mem oria 9-25 [place] cap, l 14:00: Route: PO, Drug form: DRC, Daily, Dosing Weight 91.42, kg, Start date: 07/22/13 9:00:00, Duration: 30 day, Stop date: 08/20/13 9:00:00 Detrol [place] 2012-0 No Meng K 4 mg, 1 Mem oria 9-25 [place] cap, l 14:00: Route: PO, Drug form: CAP, Daily, Start date: 07/22/13 9:00:00, Duration: 30 day, Stop date: 08/20/13 9:00:00 solifenacin 2012-0 No Meng K 5 mg, Mem oria 9-25 Bind[place] Route: PO, l 14:00: Drug form: TAB, Daily, Dosing Weight 91.42, kg, Start date: 07/22/13 9:00:00, Duration: 30 day, Stop date: 08/20/13 9:00:00 losartan 2012-0 No Meng K 100 mg, 2 Me moria 9-25 B[place] tab, l 14:00: Route: PO, Drug form: TAB, Daily, Dosing Weight 91.42, kg, Start date: 07/22/13 9:00:00, Duration: 30 day, Stop date: 08/20/13 9:00:00 Cymbalta 2012-0 No Meng K 30 mg, 1 Mem oria 9-25 [place] cap, l 14:00: Route: PO, Drug form: DRC, Daily, Dosing Weight 91.42, kg, Start date: 07/22/13 9:00:00, Duration: 30 day, Stop date: 08/20/13 9:00:00 Detrol [place] 2012-0 No Meng K 4 mg, 1 Mem oria 9-25 [place] cap, l 14:00: Route: PO, Drug form: CAP, Daily, Start date: 07/22/13 9:00:00, Duration: 30 day, Stop date: 08/20/13 9:00:00 solifenacin 2012-0 No Meng K 5 mg, Mem oria 9-25 Bind[place] Route: PO, l 14:00: Drug form: Adam 00 TAB, Daily, Dosing Weight 91.42, kg, Start date: 07/22/13 9:00:00, Duration: 30 day, Stop date: 08/20/13 9:00:00 losartan 2012-0 No Meng K 100 mg, 2 Me moria 9-25 [place] tab, l 14:00: Route: PO, Drug form: TAB, Daily, Dosing Weight 91.42, kg, Start date: 07/22/13 9:00:00, Duration: 30 day, Stop date: 08/20/13 9:00:00 Cymbalta 2012-0 No Meng K 30 mg, 1 Mem oria 9-25 [place] cap, l 14:00: Route: PO, Drug form: DRC, Daily, Dosing Weight 91.42, kg, Start date: 07/22/13 9:00:00, Duration: 30 day, Stop date: 08/20/13 9:00:00 Detrol [place] 2012-0 No Meng K 4 mg, 1 Mem oria 9-25 [place] cap, l 14:00: Route: PO, Drug form: CAP, Daily, Start date: 07/22/13 9:00:00, Duration: 30 day, Stop date: 08/20/13 9:00:00 solifenacin 2012-0 No Meng K 5 mg, Mem oria 9-25 Bindal Route: PO, l 14:00: Drug form: Adam 00 TAB, Daily, Dosing Weight 91.42, kg, Start date: 07/22/13 9:00:00, Duration: 30 day, Stop date: 08/20/13 9:00:00 losartan 2012-0 No Meng K 100 mg, 2 Me moria 9-25 Bind[place] tab, l 14:00: Route: PO, Drug form: TAB, Daily, Dosing Weight 91.42, kg, Start date: 07/22/13 9:00:00, Duration: 30 day, Stop date: 08/20/13 9:00:00 Cymbalta 2012-0 No Meng K 30 mg, 1 Mem oria 9-25 [place] cap, l 14:00: Route: PO, Adam 00 Drug form: DRC, Daily, Dosing Weight 91.42, kg, Start date: 07/22/13 9:00:00, Duration: 30 day, Stop date: 08/20/13 9:00:00 Detrol [place] 2012-0 No Meng K 4 mg, 1 Mem oria 9-25 B[place] cap, l 14:00: Route: PO, Drug form: CAP, Daily, Start date: 07/22/13 9:00:00, Duration: 30 day, Stop date: 08/20/13 9:00:00 solifenacin 2012-0 No Meng K 5 mg, Mem oria 9-25 Bindal Route: PO, l 14:00: Drug form: Maxwell 00 TAB, Daily, Dosing Weight 91.42, kg, Start date: 07/22/13 9:00:00, Duration: 30 day, Stop date: 08/20/13 9:00:00 losartan 2012-0 No Meng K 100 mg, 2 Me moria 9-25 Bindal tab, l 14:00: Route: PO, Drug form: TAB, Daily, Dosing Weight 91.42, kg, Start date: 07/22/13 9:00:00, Duration: 30 day, Stop date: 08/20/13 9:00:00 Cymbalta 2012-0 No Meng K 30 mg, 1 Mem oria 9-25 B[place] cap, l 14:00: Route: PO, Drug form: DRC, Daily, Dosing Weight 91.42, kg, Start date: 07/22/13 9:00:00, Duration: 30 day, Stop date: 08/20/13 9:00:00 Detrol [place] 2012-0 No Meng K 4 mg, 1 Mem oria 9-25 Bindal cap, l 14:00: Route: PO, Drug form: CAP, Daily, Start date: 07/22/13 9:00:00, Duration: 30 day, Stop date: 08/20/13 9:00:00 solifenacin 2012-0 No Meng K 5 mg, Mem oria 9-25 Bindal Route: PO, l 14:00: Drug form: Adam 00 TAB, Daily, Dosing Weight 91.42, kg, Start date: 07/22/13 9:00:00, Duration: 30 day, Stop date: 08/20/13 9:00:00 losartan 2012-0 No Meng K 100 mg, 2 Me moria 9-25 Bindal tab, l 14:00: Route: PO, Drug form: TAB, Daily, Dosing Weight 91.42, kg, Start date: 07/22/13 9:00:00, Duration: 30 day, Stop date: 08/20/13 9:00:00 Cymbalta 2012-0 No Meng K 30 mg, 1 Mem oria 9-25 B[place] cap, l 14:00: Route: PO, Drug form: DRC, Daily, Dosing Weight 91.42, kg, Start date: 07/22/13 9:00:00, Duration: 30 day, Stop date: 08/20/13 9:00:00 Detrol [place] No Meng K 4 mg, 1 Mem oria 9-25 B[place] cap, l 14:00: Route: PO, Drug form: CAP, Daily, Start date: 07/22/13 9:00:00, Duration: 30 day, Stop date: 08/20/13 9:00:00 levothyroxi 0 No Meng K 75 Yariel mariza ne 9-25 Bindal microgram, l 12:30: 1 tab, Route: PO, Drug form: TAB, Before Breakfast, Dosing Weight 91.42, kg, Start date: 07/22/13 7:30:00, Duration: 30 day, Stop date: 08/20/13 7:30:00 levothyroxi 0 No Meng K 75 Yariel mariza ne 9-25 Bindal microgram, l 12:30: 1 tab, Route: PO, Drug form: TAB, Before Breakfast, Dosing Weight 91.42, kg, Start date: 07/22/13 7:30:00, Duration: 30 day, Stop date: 08/20/13 7:30:00 levothyroxi 2012-0 No Meng K 75 Yariel mariza ne 9-25 Bindal microgram, l 12:30: 1 tab, Route: PO, Drug form: TAB, Before Breakfast, Dosing Weight 91.42, kg, Start date: 07/22/13 7:30:00, Duration: 30 day, Stop date: 08/20/13 7:30:00 levothyroxi 2012-0 No Meng K 75 Yariel mariza ne 9-25 Bindal microgram, l 12:30: 1 tab, Route: PO, Drug form: TAB, Before Breakfast, Dosing Weight 91.42, kg, Start date: 07/22/13 7:30:00, Duration: 30 day, Stop date: 08/20/13 7:30:00 levothyroxi No Meng K 75 Yariel mariza ne 9-25 Bindal microgram, l 12:30: 1 tab, Route: PO, Drug form: TAB, Before Breakfast, Dosing Weight 91.42, kg, Start date: 07/22/13 7:30:00, Duration: 30 day, Stop date: 08/20/13 7:30:00 levothyroxi No Meng K 75 Yariel mariza ne 9-25 Bindal microgram, l 12:30: 1 tab, Route: PO, Drug form: TAB, Before Breakfast, Dosing Weight 91.42, kg, Start date: 07/22/13 7:30:00, Duration: 30 day, Stop date: 08/20/13 7:30:00 simvastatin 2012-0 No Meng K 20 mg, 1 Memoria 9-25 Bindal tab, l 02:00: Route: PO, Drug form: TAB, Bedtime, Dosing Weight 91.42, kg, Start date: 07/21/13 21:00:00, Duration: 30 day, Stop date: 08/19/13 21:00:00 carvedilol 2012-0 No Chukwudi 6.25 mg, 1 Memoria 9-25 Isidor Gordon tab, l 02:00: Route: PO, Drug form: TAB, Q12H, Dosing Weight 91.42, kg, Start date: 07/21/13 21:00:00, Duration: 30 day, Stop date: 08/20/13 9:00:00 simvastatin 2012-0 No Meng K 20 mg, 1 Memoria 9-25 Bindal tab, l 02:00: Route: PO, Adam 00 Drug form: TAB, Bedtime, Dosing Weight 91.42, kg, Start date: 07/21/13 21:00:00, Duration: 30 day, Stop date: 08/19/13 21:00:00 carvedilol 2013-0 No Chukwudi 6.25 mg, 1 Memoria 9-25 Isidor Gordon tab, l 02:00: Route: PO, Adam 00 Drug form: TAB, Q12H, Dosing Weight 91.42, kg, Start date: 07/21/13 21:00:00, Duration: 30 day, Stop date: 08/20/13 9:00:00 simvastatin 2013-0 No Meng K 20 mg, 1 Memoria 9-25 Bindal tab, l 02:00: Route: PO, Maxwell 00 Drug form: TAB, Bedtime, Dosing Weight 91.42, kg, Start date: 07/21/13 21:00:00, Duration: 30 day, Stop date: 08/19/13 21:00:00 carvedilol 2012-0 No Chukwudi 6.25 mg, 1 Memoria 9-25 Isidor Gordon tab, l 02:00: Route: PO, Maxwell 00 Drug form: TAB, Q12H, Dosing Weight 91.42, kg, Start date: 07/21/13 21:00:00, Duration: 30 day, Stop date: 08/20/13 9:00:00 simvastatin 2012-0 No Meng K 20 mg, 1 Memoria 9-25 Bindal tab, l 02:00: Route: PO, Maxwell 00 Drug form: TAB, Bedtime, Dosing Weight 91.42, kg, Start date: 07/21/13 21:00:00, Duration: 30 day, Stop date: 08/19/13 21:00:00 carvedilol 2013-0 No Chukwudi 6.25 mg, 1 Memoria 9-25 Isidor Gordon tab, l 02:00: Route: PO, Adam 00 Drug form: TAB, Q12H, Dosing Weight 91.42, kg, Start date: 07/21/13 21:00:00, Duration: 30 day, Stop date: 08/20/13 9:00:00 simvastatin 2012-0 No Meng K 20 mg, 1 Memoria 9-25 Bindal tab, l 02:00: Route: PO, Adam 00 Drug form: TAB, Bedtime, Dosing Weight 91.42, kg, Start date: 07/21/13 21:00:00, Duration: 30 day, Stop date: 08/19/13 21:00:00 carvedilol 2012-0 No Chukwudi 6.25 mg, 1 Memoria 9-25 Isidor Gordon tab, l 02:00: Route: PO, Adam 00 Drug form: TAB, Q12H, Dosing Weight 91.42, kg, Start date: 07/21/13 21:00:00, Duration: 30 day, Stop date: 08/20/13 9:00:00 simvastatin 2012-0 No Meng K 20 mg, 1 Memoria 9-25 Bindal tab, l 02:00: Route: PO, Maxwell 00 Drug form: TAB, Bedtime, Dosing Weight 91.42, kg, Start date: 07/21/13 21:00:00, Duration: 30 day, Stop date: 08/19/13 21:00:00 carvedilol 2012-0 No Chukwudi 6.25 mg, 1 Memoria 9-25 Isidor Gordon tab, l 02:00: Route: PO, Maxwell 00 Drug form: TAB, Q12H, Dosing Weight 91.42, kg, Start date: 07/21/13 21:00:00, Duration: 30 day, Stop date: 08/20/13 9:00:00 gabapentin 2012-0 No Meng K 600 mg, 2 Memoria 600 mg oral 9-24 Bindal cap, l tablet 22:00: Route: PO, Yamilex nn 00 Drug form: CAP, BID, Dosing Weight 91.42, kg, Start date: 07/21/13 17:00:00, Duration: 30 day, Stop date: 08/20/13 9:00:00 Colace 100 2013-0 No Chukwudi 100 mg, 1 Memoria mg oral 9-24 Isidor Gordon cap, l capsule 22:00: Route: PO, Herm billie 00 BID, Dosing Weight 91.42, kg, Start date: 07/21/13 17:00:00, Duration: 30 day, Stop date: 08/20/13 9:00:00 docusate 2012-0 No Meng K 100 mg, 1 Me moria 9-24 Bindal cap, l 22:00: Route: PO, Adam 00 Drug form: CAP, BID, Dosing Weight 91.42, kg, Start date: 07/21/13 17:00:00, Duration: 30 day, Stop date: 08/20/13 9:00:00 gabapentin 2012-0 No Meng K 600 mg, 2 Memoria 600 mg oral 9-24 Bindal cap, l tablet 22:00: Route: PO, Yamilex nn 00 Drug form: CAP, BID, Dosing Weight 91.42, kg, Start date: 07/21/13 17:00:00, Duration: 30 day, Stop date: 08/20/13 9:00:00 Colace 100 2012-0 No Chukwudi 100 mg, 1 Memoria mg oral 9-24 Isidor Gordon cap, l capsule 22:00: Route: PO, Herm billie 00 BID, Dosing Weight 91.42, kg, Start date: 07/21/13 17:00:00, Duration: 30 day, Stop date: 08/20/13 9:00:00 docusate 2012-0 No Meng K 100 mg, 1 Me moria 9-24 Bindal cap, l 22:00: Route: PO, Maxwell 00 Drug form: CAP, BID, Dosing Weight 91.42, kg, Start date: 07/21/13 17:00:00, Duration: 30 day, Stop date: 08/20/13 9:00:00 gabapentin 2012-0 No Meng K 600 mg, 2 Memoria 600 mg oral 9-24 Bindal cap, l tablet 22:00: Route: PO, Yamilex nn 00 Drug form: CAP, BID, Dosing Weight 91.42, kg, Start date: 07/21/13 17:00:00, Duration: 30 day, Stop date: 08/20/13 9:00:00 Colace 100 2013-0 No Chukwudi 100 mg, 1 Memoria mg oral 9-24 Isidor Gordon cap, l capsule 22:00: Route: PO, Herm billie 00 BID, Dosing Weight 91.42, kg, Start date: 07/21/13 17:00:00, Duration: 30 day, Stop date: 08/20/13 9:00:00 docusate 2012-0 No Meng K 100 mg, 1 Me moria 9-24 Bindal cap, l 22:00: Route: PO, Adam 00 Drug form: CAP, BID, Dosing Weight 91.42, kg, Start date: 07/21/13 17:00:00, Duration: 30 day, Stop date: 08/20/13 9:00:00 gabapentin 2012-0 No Meng K 600 mg, 2 Memoria 600 mg oral 9-24 Bindal cap, l tablet 22:00: Route: PO, Yamilex nn 00 Drug form: CAP, BID, Dosing Weight 91.42, kg, Start date: 07/21/13 17:00:00, Duration: 30 day, Stop date: 08/20/13 9:00:00 Colace 100 2012-0 No Chukwudi 100 mg, 1 Memoria mg oral 9-24 Isidor Gordon cap, l capsule 22:00: Route: PO, Herm billie 00 BID, Dosing Weight 91.42, kg, Start date: 07/21/13 17:00:00, Duration: 30 day, Stop date: 08/20/13 9:00:00 docusate 2012-0 No Meng K 100 mg, 1 Me moria 9-24 Bindal cap, l 22:00: Route: PO, Adam 00 Drug form: CAP, BID, Dosing Weight 91.42, kg, Start date: 07/21/13 17:00:00, Duration: 30 day, Stop date: 08/20/13 9:00:00 gabapentin 2012-0 No Meng K 600 mg, 2 Memoria 600 mg oral 9-24 Bindal cap, l tablet 22:00: Route: PO, Yamilex nn 00 Drug form: CAP, BID, Dosing Weight 91.42, kg, Start date: 07/21/13 17:00:00, Duration: 30 day, Stop date: 08/20/13 9:00:00 Colace 100 2013-0 No Chukwudi 100 mg, 1 Memoria mg oral 9-24 Isidor Gordon cap, l capsule 22:00: Route: PO, Herm billie 00 BID, Dosing Weight 91.42, kg, Start date: 07/21/13 17:00:00, Duration: 30 day, Stop date: 08/20/13 9:00:00 docusate 2012-0 No Meng K 100 mg, 1 Me moria 9-24 Bindal cap, l 22:00: Route: PO, Maxwell 00 Drug form: CAP, BID, Dosing Weight 91.42, kg, Start date: 07/21/13 17:00:00, Duration: 30 day, Stop date: 08/20/13 9:00:00 gabapentin 2012-0 No Meng K 600 mg, 2 Memoria 600 mg oral 9-24 Bindal cap, l tablet 22:00: Route: PO, Yamilex nn 00 Drug form: CAP, BID, Dosing Weight 91.42, kg, Start date: 07/21/13 17:00:00, Duration: 30 day, Stop date: 08/20/13 9:00:00 Colace 100 2012-0 No Chukwudi 100 mg, 1 Memoria mg oral 9-24 Isidor Gordon cap, l capsule 22:00: Route: PO, Herm billie 00 BID, Dosing Weight 91.42, kg, Start date: 07/21/13 17:00:00, Duration: 30 day, Stop date: 08/20/13 9:00:00 docusate 2012-0 No Meng K 100 mg, 1 Me moria 9-24 Bindal cap, l 22:00: Route: PO, Adam 00 Drug form: CAP, BID, Dosing Weight 91.42, kg, Start date: 07/21/13 17:00:00, Duration: 30 day, Stop date: 08/20/13 9:00:00 hydrALAZINE 2012-0 No Chukwudi 20 mg, 1 Memoria + Sodium 9-24 Isidor Gordon mL, Route: l Chloride 21:22: IV, Drug Yamilex nn 0.9% IV 50 00 form: INJ, mL Q4H, Dosing Weight 91.42, kg, PRN Elevated BP, Start date: 07/21/13 16:22:00, Duration: 30 day, Stop date: 08/20/13 16:21:00, PRN for systolic BP greater than 180 or diastolic greater than 100mmhg. hydrALAZINE No Chukwudi 20 mg, 1 Memoria + Sodium 9-24 Isidor Gordon mL, Route: l Chloride 21:22: IV, Drug Yamilex nn 0.9% IV 50 00 form: INJ, mL Q4H, Dosing Weight 91.42, kg, PRN Elevated BP, Start date: 07/21/13 16:22:00, Duration: 30 day, Stop date: 08/20/13 16:21:00, PRN for systolic BP greater than 180 or diastolic greater than 100mmhg. hydrALAZINE No Chukwudi 20 mg, 1 Memoria + Sodium 9-24 Isidor Gordon mL, Route: l Chloride 21:22: IV, Drug Yamilex nn 0.9% IV 50 00 form: INJ, mL Q4H, Dosing Weight 91.42, kg, PRN Elevated BP, Start date: 07/21/13 16:22:00, Duration: 30 day, Stop date: 08/20/13 16:21:00, PRN for systolic BP greater than 180 or diastolic greater than 100mmhg. hydrALAZINE No Chukwudi 20 mg, 1 Memoria + Sodium 9-24 Isidor Gordon mL, Route: l Chloride 21:22: IV, Drug Yamilex nn 0.9% IV 50 00 form: INJ, mL Q4H, Dosing Weight 91.42, kg, PRN Elevated BP, Start date: 07/21/13 16:22:00, Duration: 30 day, Stop date: 08/20/13 16:21:00, PRN for systolic BP greater than 180 or diastolic greater than 100mmhg. hydrALAZINE No Chukwudi 20 mg, 1 Memoria + Sodium 9-24 Isidor Gordon mL, Route: l Chloride 21:22: IV, Drug Yamilex nn 0.9% IV 50 00 form: INJ, mL Q4H, Dosing Weight 91.42, kg, PRN Elevated BP, Start date: 07/21/13 16:22:00, Duration: 30 day, Stop date: 08/20/13 16:21:00, PRN for systolic BP greater than 180 or diastolic greater than 100mmhg. hydrALAZINE No Chukwudi 20 mg, 1 Memoria + Sodium 9-24 Isidor Gordon mL, Route: l Chloride 21:22: IV, Drug Yamilex nn 0.9% IV 50 00 form: INJ, mL Q4H, Dosing Weight 91.42, kg, PRN Elevated BP, Start date: 07/21/13 16:22:00, Duration: 30 day, Stop date: 08/20/13 16:21:00, PRN for systolic BP greater than 180 or diastolic greater than 100mmhg. glucagon No Chukwudi 1 mg, Yariel mariza 9-24 Isidor Gordon Route: IM, l 21:05: Drug form: Maxwell PDR/INJ, PRN, Dosing Weight 91.42, kg, PRN Blood Glucose Results, Start date: 07/21/13 16:05:00, Duration: 30 day, Stop date: 08/20/13 16:04:00 Dextrose No Chukwudi 25 gm, 50 Memoria 50% Syringe 9-24 Isidor Gordon mL, Route: l 21:05: IVP, Drug Maxwell 00 Form: INJ, Dosing Weight 91.42, kg, PRN, PRN Blood Glucose Results, Start date: 07/21/13 16:05:00, Duration: 30 day, Stop date: 08/20/13 16:04:00 insulin 2012- No Chukwudi 8 unit, Mem oria aspart 9-24 Isidor Gordon 0.08 mL, l 21:05: Route: Adam SUB-Q, Drug form: SOLN, TID-Before Meals, Dosing Weight 91.42, kg, PRN Blood Glucose Results, Start date: 07/21/13 16:05:00, Duration: 30 day, Stop date: 08/20/13 16:04:00 glucagon No Chukwudi 1 mg, Yariel mariza 9-24 Isidor Gordon Route: IM, l 21:05: Drug form: Adam 00 PDR/INJ, PRN, Dosing Weight 91.42, kg, PRN Blood Glucose Results, Start date: 07/21/13 16:05:00, Duration: 30 day, Stop date: 08/20/13 16:04:00 Dextrose 2013-0 No Chukwudi 25 gm, 50 Memoria 50% Syringe 9-24 Isidor Gordon mL, Route: l 21:05: IVP, Drug Maxwell 00 Form: INJ, Dosing Weight 91.42, kg, PRN, PRN Blood Glucose Results, Start date: 07/21/13 16:05:00, Duration: 30 day, Stop date: 08/20/13 16:04:00 insulin 2012-0 No Chukwudi 8 unit, Mem oria aspart 9-24 Isidor Gordon 0.08 mL, l 21:05: Route: Maxwell 00 SUB-Q, Drug form: SOLN, TID-Before Meals, Dosing Weight 91.42, kg, PRN Blood Glucose Results, Start date: 07/21/13 16:05:00, Duration: 30 day, Stop date: 08/20/13 16:04:00 glucagon 2012-0 No Chukwudi 1 mg, Yariel mariza 9-24 Isidor Gordon Route: IM, l 21:05: Drug form: Maxwell 00 PDR/INJ, PRN, Dosing Weight 91.42, kg, PRN Blood Glucose Results, Start date: 07/21/13 16:05:00, Duration: 30 day, Stop date: 08/20/13 16:04:00 Dextrose 2012-0 No Chukwudi 25 gm, 50 Memoria 50% Syringe 9-24 Isidor Gordon mL, Route: l 21:05: IVP, Drug Maxwell 00 Form: INJ, Dosing Weight 91.42, kg, PRN, PRN Blood Glucose Results, Start date: 07/21/13 16:05:00, Duration: 30 day, Stop date: 08/20/13 16:04:00 insulin 2012-0 No Chukwudi 8 unit, Mem oria aspart 9-24 Isidor Gordon 0.08 mL, l 21:05: Route: Maxwell 00 SUB-Q, Drug form: SOLN, TID-Before Meals, Dosing Weight 91.42, kg, PRN Blood Glucose Results, Start date: 07/21/13 16:05:00, Duration: 30 day, Stop date: 08/20/13 16:04:00 glucagon 2012-0 No Chukwudi 1 mg, Yariel mariza 9-24 Isidor Gordon Route: IM, l 21:05: Drug form: Maxwell 00 PDR/INJ, PRN, Dosing Weight 91.42, kg, PRN Blood Glucose Results, Start date: 07/21/13 16:05:00, Duration: 30 day, Stop date: 08/20/13 16:04:00 Dextrose 2012-0 No Chukwudi 25 gm, 50 Memoria 50% Syringe 9-24 Isidor Gordon mL, Route: l 21:05: IVP, Drug Form: INJ, Dosing Weight 91.42, kg, PRN, PRN Blood Glucose Results, Start date: 07/21/13 16:05:00, Duration: 30 day, Stop date: 08/20/13 16:04:00 insulin 2012-0 No Chukwudi 8 unit, Mem oria aspart 9-24 Isidor Gordon 0.08 mL, l 21:05: Route: Maxwell 00 SUB-Q, Drug form: SOLN, TID-Before Meals, Dosing Weight 91.42, kg, PRN Blood Glucose Results, Start date: 07/21/13 16:05:00, Duration: 30 day, Stop date: 08/20/13 16:04:00 glucagon 2012-0 No Chukwudi 1 mg, Yariel mariza 9-24 Isidor Gordon Route: IM, l 21:05: Drug form: Maxwell 00 PDR/INJ, PRN, Dosing Weight 91.42, kg, PRN Blood Glucose Results, Start date: 07/21/13 16:05:00, Duration: 30 day, Stop date: 08/20/13 16:04:00 Dextrose 2012-0 No Chukwudi 25 gm, 50 Memoria 50% Syringe 9-24 Isidor Gordon mL, Route: l 21:05: IVP, Drug Form: INJ, Dosing Weight 91.42, kg, PRN, PRN Blood Glucose Results, Start date: 07/21/13 16:05:00, Duration: 30 day, Stop date: 08/20/13 16:04:00 insulin 2012-0 No Chukwudi 8 unit, Mem oria aspart 9-24 Isidor Gordon 0.08 mL, l 21:05: Route: Adam 00 SUB-Q, Drug form: SOLN, TID-Before Meals, Dosing Weight 91.42, kg, PRN Blood Glucose Results, Start date: 07/21/13 16:05:00, Duration: 30 day, Stop date: 08/20/13 16:04:00 glucagon 2012-0 No Chukwudi 1 mg, Yariel mariza 9-24 Isidor Gordon Route: IM, l 21:05: Drug form: Maxwell 00 PDR/INJ, PRN, Dosing Weight 91.42, kg, PRN Blood Glucose Results, Start date: 07/21/13 16:05:00, Duration: 30 day, Stop date: 08/20/13 16:04:00 Dextrose 2012- No Chukwudi 25 gm, 50 Memoria 50% Syringe 9-24 Isidor Gordon mL, Route: l 21:05: IVP, Drug Form: INJ, Dosing Weight 91.42, kg, PRN, PRN Blood Glucose Results, Start date: 07/21/13 16:05:00, Duration: 30 day, Stop date: 08/20/13 16:04:00 insulin 2012- No Chukwudi 8 unit, Mem oria aspart - Isidor Gordon 0.08 mL, l 21:05: Route: Adam 00 SUB-Q, Drug form: SOLN, TID-Before Meals, Dosing Weight 91.42, kg, PRN Blood Glucose Results, Start date: 07/21/13 16:05:00, Duration: 30 day, Stop date: 08/20/13 16:04:00 cefazolin 0 No Meng K 1 gm, Memor ia (SCIP) 07-21 Bindal Route: l 21:00: IVPB, Drug form: INJ, Q8H, Dosing Weight 91.42, kg, Start date: 07/21/13 16:00:00, Duration: 1 doses or times, Stop date: 07/21/13 16:00:00 cefazolin 2012-0 No Meng K 1 gm, Memor ia (SCIP) - Bindal Route: l 21:00: IVPB, Drug form: INJ, Q8H, Dosing Weight 91.42, kg, Start date: 07/21/13 16:00:00, Duration: 1 doses or times, Stop date: 07/21/13 16:00:00 cefazolin No Meng K 1 gm, Memor ia (SCIP) 07-21 Bindal Route: l 21:00: IVPB, Drug Maxwell 00 form: INJ, Q8H, Dosing Weight 91.42, kg, Start date: 07/21/13 16:00:00, Duration: 1 doses or times, Stop date: 07/21/13 16:00:00 cefazolin No Meng K 1 gm, Memor ia (SCIP) 07-21 Bindal Route: l 21:00: IVPB, Drug Adam 00 form: INJ, Q8H, Dosing Weight 91.42, kg, Start date: 07/21/13 16:00:00, Duration: 1 doses or times, Stop date: 07/21/13 16:00:00 cefazolin No Meng K 1 gm, Memor ia (SCIP) 07-21 Bindal Route: l 21:00: IVPB, Drug Adam 00 form: INJ, Q8H, Dosing Weight 91.42, kg, Start date: 07/21/13 16:00:00, Duration: 1 doses or times, Stop date: 07/21/13 16:00:00 cefazolin No Meng K 1 gm, Memor ia (SCIP) 07-21 Bindal Route: l 21:00: IVPB, Drug Adam 00 form: INJ, Q8H, Dosing Weight 91.42, kg, Start date: 07/21/13 16:00:00, Duration: 1 doses or times, Stop date: 07/21/13 16:00:00 Cepastat 0 No Meng K 1 Darren de leon emoria 07-21 Bindal Route: l 20:37: MUCOUS Adam 00 MEM, PRN, Drug form: CHRIS, PRN Sore Throat, Start date: 07/21/13 15:37:00, Duration: 30 day, Stop date: 08/20/13 15:36:00 Cepastat 0 No Meng K 1 Darren de leon emoria 07-21 Bindal Route: l 20:37: MUCOUS Maxwell 00 MEM, PRN, Drug form: CHRIS, PRN Sore Throat, Start date: 07/21/13 15:37:00, Duration: 30 day, Stop date: 08/20/13 15:36:00 Cepastat No Meng K 1 Darren de leon emoria 07-21 Bindal Route: l 20:37: MUCOUS Adam 00 MEM, PRN, Drug form: CHRIS, PRN Sore Throat, Start date: 07/21/13 15:37:00, Duration: 30 day, Stop date: 08/20/13 15:36:00 Cepastat No Meng K 1 Darren de leon emoria 07-21 Bindal Route: l 20:37: MUCOUS Maxwell 00 MEM, PRN, Drug form: CHRIS, PRN Sore Throat, Start date: 07/21/13 15:37:00, Duration: 30 day, Stop date: 08/20/13 15:36:00 Cepastat No Meng K 1 Darren de leon emoria 07-21 Bindal Route: l 20:37: MUCOUS Maxwell 00 MEM, PRN, Drug form: CHRIS, PRN Sore Throat, Start date: 07/21/13 15:37:00, Duration: 30 day, Stop date: 08/20/13 15:36:00 Cepastat No Meng K 1 Darren de leon emoria 07-21 Bindal Route: l 20:37: MUCOUS Maxwell 00 MEM, PRN, Drug form: CHRIS, PRN Sore Throat, Start date: 07/21/13 15:37:00, Duration: 30 day, Stop date: 08/20/13 15:36:00 cefazolin No Meng K 2 gm, 100 M emoria (SCIP) 07-21 Bindal mL, Route: l 20:30: IVPB, Drug Maxwell 00 form: INJ, ABXQ8H, Dosing Weight 91.42, kg, Start date: 07/21/13 15:30:00, Duration: 3 doses or times, Stop date: 07/22/13 7:30:00 cefazolin No Meng K 2 gm, 100 M emoria (SCIP) 9-24 Bindal mL, Route: l 20:30: IVPB, Drug Maxwell 00 form: INJ, ABXQ8H, Dosing Weight 91.42, kg, Start date: 07/21/13 15:30:00, Duration: 3 doses or times, Stop date: 07/22/13 7:30:00 cefazolin 2012-0 No Meng K 2 gm, 100 [facility] 07[facility]21 Bindal mL, Route: l 20:30: IVPB, Drug Maxwell 00 form: INJ, ABXQ8H, Dosing Weight 91.42, kg, Start date: 07/21/13 15:30:00, Duration: 3 doses or times, Stop date: 07/22/13 7:30:00 cefazolin 2012- No Meng K 2 gm, 100 M [facility] 07-21 Bindal mL, Route: l 20:30: IVPB, Drug Maxwell 00 form: INJ, ABXQ8H, Dosing Weight 91.42, kg, Start date: 07/21/13 15:30:00, Duration: 3 doses or times, Stop date: 07/22/13 7:30:00 cefazolin No Meng K 2 gm, 100 M [facility]) 07-21 Bindal mL, Route: l 20:30: IVPB, Drug Maxwell 00 form: INJ, ABXQ8H, Dosing Weight 91.42, kg, Start date: 07/21/13 15:30:00, Duration: 3 doses or times, Stop date: 07/22/13 7:30:00 cefazolin 2012-0 No Meng K 2 gm, 100 M [facility] 07-21 Bindal mL, Route: l 20:30: IVPB, Drug Maxwell 00 form: INJ, ABXQ8H, Dosing Weight 91.42, kg, Start date: 07/21/13 15:30:00, Duration: 3 doses or times, Stop date: 07/22/13 7:30:00 dexamethaso 2012-0 No Meng K 4 mg, 1 M emoria ne 07-21 Bindal mL, Route: l 19:00: IVP, Drug Adam 00 form: INJ, ONCE, Start date: 07/21/13 14:00:00, Stop date: 07/21/13 14:00:00 dexamethaso 2012-0 No Meng K 4 mg, 1 M emoria ne 9-24 Bindal mL, Route: l 19:00: IVP, Drug Maxwell 00 form: INJ, ONCE, Start date: 07/21/13 14:00:00, Stop date: 07/21/13 14:00:00 dexamethaso 2012-0 No Meng K 4 mg, 1 M emoria ne 9-24 Bindal mL, Route: l 19:00: IVP, Drug Maxwell 00 form: INJ, ONCE, Start date: 07/21/13 14:00:00, Stop date: 07/21/13 14:00:00 dexamethaso 2012-0 No Meng K 4 mg, 1 M emoria ne 9-24 Bindal mL, Route: l 19:00: IVP, Drug Adam 00 form: INJ, ONCE, Start date: 07/21/13 14:00:00, Stop date: 07/21/13 14:00:00 dexamethaso 2012-0 No Meng K 4 mg, 1 M emoria ne 9-24 Bindal mL, Route: l 19:00: IVP, Drug Adam 00 form: INJ, ONCE, Start date: 07/21/13 14:00:00, Stop date: 07/21/13 14:00:00 dexamethaso 2012-0 No Meng K 4 mg, 1 M emoria ne 9-24 Bindal mL, Route: l 19:00: IVP, Drug Adam 00 form: INJ, ONCE, Start date: 07/21/13 14:00:00, Stop date: 07/21/13 14:00:00 ketorolac 2012-0 No Meng K 30 mg, 1 Me moria 9-24 Bindal mL, Route: l 17:00: IV, Drug Adam 00 form: INJ, Q6H, Dosing Weight 91.42, kg, Start date: 07/21/13 12:00:00, Duration: 4 day, Stop date: 07/25/13 6:00:00 dexamethaso 2012-0 No Meng K 4 mg, Mem oria ne 9-24 Bindal Route: l 17:00: IVP, Q6H, Adam Dosing Weight 91.42, kg, Start date: 07/21/13 12:00:00, Duration: 30 day, Stop date: 08/20/13 6:00:00 ketorolac 2013-0 No Meng K 30 mg, 1 Me moria 9-24 Bindal mL, Route: l 17:00: IV, Drug Adam 00 form: INJ, Q6H, Dosing Weight 91.42, kg, Start date: 07/21/13 12:00:00, Duration: 4 day, Stop date: 07/25/13 6:00:00 dexamethaso 2013-0 No Meng K 4 mg, Mem oria ne 9-24 Bindal Route: l 17:00: IVP, Q6H, Adam 00 Dosing Weight 91.42, kg, Start date: 07/21/13 12:00:00, Duration: 30 day, Stop date: 08/20/13 6:00:00 ketorolac 2013-0 No Meng K 30 mg, 1 Me moria 9-24 Bindal mL, Route: l 17:00: IV, Drug Maxwell 00 form: INJ, Q6H, Dosing Weight 91.42, kg, Start date: 07/21/13 12:00:00, Duration: 4 day, Stop date: 07/25/13 6:00:00 dexamethaso 2013-0 No Meng K 4 mg, Mem oria ne 9-24 Bindal Route: l 17:00: IVP, Q6H, Maxwell 00 Dosing Weight 91.42, kg, Start date: 07/21/13 12:00:00, Duration: 30 day, Stop date: 08/20/13 6:00:00 ketorolac 2013-0 No Meng K 30 mg, 1 Me moria 9-24 Bindal mL, Route: l 17:00: IV, Drug Adam 00 form: INJ, Q6H, Dosing Weight 91.42, kg, Start date: 07/21/13 12:00:00, Duration: 4 day, Stop date: 07/25/13 6:00:00 dexamethaso 2013-0 No Meng K 4 mg, Mem oria ne 9-24 Bindal Route: l 17:00: IVP, Q6H, Dosing Weight 91.42, kg, Start date: 07/21/13 12:00:00, Duration: 30 day, Stop date: 08/20/13 6:00:00 ketorolac 2013-0 No Meng K 30 mg, 1 Me moria 9-24 Bindal mL, Route: l 17:00: IV, Drug form: INJ, Q6H, Dosing Weight 91.42, kg, Start date: 07/21/13 12:00:00, Duration: 4 day, Stop date: 07/25/13 6:00:00 dexamethaso 2012-0 No Meng K 4 mg, Mem oria ne 9-24 Bindal Route: l 17:00: IVP, Q6H, Dosing Weight 91.42, kg, Start date: 07/21/13 12:00:00, Duration: 30 day, Stop date: 08/20/13 6:00:00 ketorolac 2012-0 No Meng K 30 mg, 1 Me moria 9-24 Bindal mL, Route: l 17:00: IV, Drug form: INJ, Q6H, Dosing Weight 91.42, kg, Start date: 07/21/13 12:00:00, Duration: 4 day, Stop date: 07/25/13 6:00:00 dexamethaso 2012-0 No Meng K 4 mg, Mem oria ne 24 Bindal Route: l 17:00: IVP, Q6H, Dosing Weight 91.42, kg, Start date: 07/21/13 12:00:00, Duration: 30 day, Stop date: 08/20/13 6:00:00 flumazenil 2012-0 No Gaston 0.2 mg, 2 M emoria 9-24 Bud mL, Route: l 16:14: Kyle IVP, Drug Yamilex form: INJ, PRN, Dosing Weight 91.42, kg, PRN Benzodiaze pine Reversal, Initial dose, Start date: 07/21/13 11:14:00, Duration: 30 day, Stop date: 08/20/13 11:13:00 hydromorpho 2012-0 No Gaston 0.5 mg, Me moria ne 9-24 Bud 0.5 mL, l 16:14: Kyle Route: Adam 00 IVP, Drug form: INJ, Q5Min, Dosing Weight 91.42, kg, PRN Pain Score 7-10, Start date: 07/21/13 11:14:00, Duration: 5 doses or times, Stop date: Limited # of times naloxone 2012- No Gaston 0.04 mg, Yariel mariza -24 Bud 0.1 mL, l 16:14: Kyle Route: Adam 00 IVP, Drug form: INJ, Q2MIN, Dosing Weight 91.42, kg, PRN Narcotic Reversal, Start date: 07/21/13 11:14:00, Duration: 8 doses or times, Stop date: Limited # of times ondansetron No Gaston 4 mg, 2 Me moria -24 Bud mL, Route: l 16:14: Kyle IVP, Drug Yamilex nn 00 form: INJ, ONCE, Dosing Weight 91.42, kg, PRN Nausea & Vomiting, Start date: 07/21/13 11:14:00 acetaminoph No Gaston 1,000 mg, Memoria en-10 mg/mL 07-21 Bud Route: IV, l INTRAVENOUS 16:14: Kyle Drug form: Maxwell solution 00 INJ, ONCE, Dosing Weight 91.42, kg, PRN Pain Score 4-6, Start date: 07/21/13 11:14:00, Duration: 1 doses or times, Stop date: Limited # of times, Infuse over 15 minutes (for patient weight 50 kg or greater)In fuse over 15 minutes (for patient weight 50 kg or greater) flumazenil No Gaston 0.2 mg, 2 M emoria 9-24 Bud mL, Route: l 16:14: Kyle IVP, Drug Yamilex nn 00 form: INJ, PRN, Dosing Weight 91.42, kg, PRN Benzodiaze pine Reversal, Initial dose, Start date: 07/21/13 11:14:00, Duration: 30 day, Stop date: 08/20/13 11:13:00 hydromorpho 2012-0 No Gaston 0.5 mg, Me moria ne 9-24 Bud 0.5 mL, l 16:14: Kyle Route: Maxwell 00 IVP, Drug form: INJ, Q5Min, Dosing Weight 91.42, kg, PRN Pain Score 7-10, Start date: 07/21/13 11:14:00, Duration: 5 doses or times, Stop date: Limited # of times naloxone No Gaston 0.04 mg, Yariel mariza 9-24 Bud 0.1 mL, l 16:14: Kyle Route: Adam IVP, Drug form: INJ, Q2MIN, Dosing Weight 91.42, kg, PRN Narcotic Reversal, Start date: 07/21/13 11:14:00, Duration: 8 doses or times, Stop date: Limited # of times ondansetron No Gaston 4 mg, 2 Me moria 9-24 Bud mL, Route: l 16:14: Kyle IVP, Drug Yamilex nn 00 form: INJ, ONCE, Dosing Weight 91.42, kg, PRN Nausea & Vomiting, Start date: 07/21/13 11:14:00 acetaminoph No Gaston 1,000 mg, Memoria en-10 mg/mL -24 Bud Route: IV, l INTRAVENOUS 16:14: Kyle Drug form: Maxwell solution 00 INJ, ONCE, Dosing Weight 91.42, kg, PRN Pain Score 4-6, Start date: 07/21/13 11:14:00, Duration: 1 doses or times, Stop date: Limited # of times, Infuse over 15 minutes (for patient weight 50 kg or greater)In fuse over 15 minutes (for patient weight 50 kg or greater) flumazenil No Gaston 0.2 mg, 2 M emoria 9-24 Bud mL, Route: l 16:14: Kyle IVP, Drug Yamilex nn 00 form: INJ, PRN, Dosing Weight 91.42, kg, PRN Benzodiaze pine Reversal, Initial dose, Start date: 07/21/13 11:14:00, Duration: 30 day, Stop date: 08/20/13 11:13:00 hydromorpho 2012- No Gaston 0.5 mg, Me moria ne 9-24 Bud 0.5 mL, l 16:14: Kyle Route: Adam IVP, Drug form: INJ, Q5Min, Dosing Weight 91.42, kg, PRN Pain Score 7-10, Start date: 07/21/13 11:14:00, Duration: 5 doses or times, Stop date: Limited # of times naloxone No Gaston 0.04 mg, Yariel mariza 9-24 Bud 0.1 mL, l 16:14: Kyle Route: Adam 00 IVP, Drug form: INJ, Q2MIN, Dosing Weight 91.42, kg, PRN Narcotic Reversal, Start date: 07/21/13 11:14:00, Duration: 8 doses or times, Stop date: Limited # of times ondansetron No Gaston 4 mg, 2 Me moria -24 Bud mL, Route: l 16:14: Kyle IVP, Drug Yamilex nn 00 form: INJ, ONCE, Dosing Weight 91.42, kg, PRN Nausea & Vomiting, Start date: 07/21/13 11:14:00 acetaminoph No Gaston 1,000 mg, Memoria en-10 mg/mL 07-21 Bud Route: IV, l INTRAVENOUS 16:14: Kyle Drug form: Adam solution 00 INJ, ONCE, Dosing Weight 91.42, kg, PRN Pain Score 4-6, Start date: 07/21/13 11:14:00, Duration: 1 doses or times, Stop date: Limited # of times, Infuse over 15 minutes (for patient weight 50 kg or greater)In fuse over 15 minutes (for patient weight 50 kg or greater) flumazenil No [place]aston 0.2 mg, 2 M emoria -24 Bud mL, Route: l 16:14: Kyle IVP, Drug Yamilex nn 00 form: INJ, PRN, Dosing Weight 91.42, kg, PRN Benzodiaze pine Reversal, Initial dose, Start date: 07/21/13 11:14:00, Duration: 30 day, Stop date: 08/20/13 11:13:00 hydromorpho No Gaston 0.5 mg, Me moria ne -24 Bud 0.5 mL, l 16:14: Kyle Route: Adam 00 IVP, Drug form: INJ, Q5Min, Dosing Weight 91.42, kg, PRN Pain Score 7-10, Start date: 07/21/13 11:14:00, Duration: 5 doses or times, Stop date: Limited # of times naloxone No Gaston 0.04 mg, Yariel mariza 9-24 Bud 0.1 mL, l 16:14: Kyle Route: Adam 00 IVP, Drug form: INJ, Q2MIN, Dosing Weight 91.42, kg, PRN Narcotic Reversal, Start date: 07/21/13 11:14:00, Duration: 8 doses or times, Stop date: Limited # of times ondansetron No Gaston 4 mg, 2 Me moria 9-24 Bud mL, Route: l 16:14: Kyle IVP, Drug Yamilex nn 00 form: INJ, ONCE, Dosing Weight 91.42, kg, PRN Nausea & Vomiting, Start date: 07/21/13 11:14:00 acetaminoph No [place]aston 1,000 mg, Memoria en-10 mg/mL 07-21 Bud Route: IV, l INTRAVENOUS 16:14: Kyle Drug form: Adam solution 00 INJ, ONCE, Dosing Weight 91.42, kg, PRN Pain Score 4-6, Start date: 07/21/13 11:14:00, Duration: 1 doses or times, Stop date: Limited # of times, Infuse over 15 minutes (for patient weight 50 kg or greater)In fuse over 15 minutes (for patient weight 50 kg or greater) flumazenil No Gaston 0.2 mg, 2 M emoria -24 Bud mL, Route: l 16:14: Kyle IVP, Drug Yamilex nn 00 form: INJ, PRN, Dosing Weight 91.42, kg, PRN Benzodiaze pine Reversal, Initial dose, Start date: 07/21/13 11:14:00, Duration: 30 day, Stop date: 08/20/13 11:13:00 hydromorpho 2012-0 No Gaston 0.5 mg, Me moria ne 9-24 Bud 0.5 mL, l 16:14: Kyle Route: Maxwell 00 IVP, Drug form: INJ, Q5Min, Dosing Weight 91.42, kg, PRN Pain Score 7-10, Start date: 07/21/13 11:14:00, Duration: 5 doses or times, Stop date: Limited # of times naloxone No Gaston 0.04 mg, Yariel mariza 07-21 Bud 0.1 mL, l 16:14: Kyle Route: Maxwell 00 IVP, Drug form: INJ, Q2MIN, Dosing Weight 91.42, kg, PRN Narcotic Reversal, Start date: 07/21/13 11:14:00, Duration: 8 doses or times, Stop date: Limited # of times ondansetron No Gaston 4 mg, 2 Me moria 24 Bud mL, Route: l 16:14: Kyle IVP, Drug Yamilex nn 00 form: INJ, ONCE, Dosing Weight 91.42, kg, PRN Nausea & Vomiting, Start date: 07/21/13 11:14:00 acetaminoph No [place]aston 1,000 mg, Memoria en-10 mg/mL 07-21 Bud Route: IV, l INTRAVENOUS 16:14: Kyle Drug form: Adam solution 00 INJ, ONCE, Dosing Weight 91.42, kg, PRN Pain Score 4-6, Start date: 07/21/13 11:14:00, Duration: 1 doses or times, Stop date: Limited # of times, Infuse over 15 minutes (for patient weight 50 kg or greater)In fuse over 15 minutes (for patient weight 50 kg or greater) flumazenil No [place]aston 0.2 mg, 2 M emoria 24 Bud mL, Route: l 16:14: Kyle IVP, Drug Yamilex nn 00 form: INJ, PRN, Dosing Weight 91.42, kg, PRN Benzodiaze pine Reversal, Initial dose, Start date: 07/21/13 11:14:00, Duration: 30 day, Stop date: 08/20/13 11:13:00 hydromorpho No Gaston 0.5 mg, Me moria ne 07-21 Bud 0.5 mL, l 16:14: Kyle Route: Maxwell 00 IVP, Drug form: INJ, Q5Min, Dosing Weight 91.42, kg, PRN Pain Score 7-10, Start date: 07/21/13 11:14:00, Duration: 5 doses or times, Stop date: Limited # of times naloxone No Gaston 0.04 mg, Yariel mariza 9-24 Bud 0.1 mL, l 16:14: [place] Route: Maxwell 00 IVP, Drug form: INJ, Q2MIN, Dosing Weight 91.42, kg, PRN Narcotic Reversal, Start date: 07/21/13 11:14:00, Duration: 8 doses or times, Stop date: Limited # of times ondansetron No Gaston 4 mg, 2 Me moria 07-21 Bud mL, Route: l 16:14: [place] IVP, Drug Yamilex nn 00 form: INJ, ONCE, Dosing Weight 91.42, kg, PRN Nausea & Vomiting, Start date: 07/21/13 11:14:00 acetaminoph No Gaston 1,000 mg, Memoria en-10 mg/mL 07-21 Bud Route: IV, l INTRAVENOUS 16:14: [place] Drug form: Maxwell solution 00 INJ, ONCE, Dosing Weight 91.42, kg, PRN Pain Score 4-6, Start date: 07/21/13 11:14:00, Duration: 1 doses or times, Stop date: Limited # of times, Infuse over 15 minutes (for patient weight 50 kg or greater)In fuse over 15 minutes (for patient weight 50 kg or greater) 1/2NS + KCL No Meng K 1,000 mL, Memoria 20mEq/L 07-21 Bindal Rate: 75 l 1000ml 16:08: ml/hr, Adam (Premix) Infuse 1,000 mL over: 13.3 hr, Route: IV, Dosing Weight 91.42 kg, Total Volume: 1,000, Start date: 07/21/13 11:08:00, Duration: 30 day, Stop date: 08/20/13 11:07:00 acetaminoph No Meng K 650 mg, 2 Memoria en 07-21 Bindal tab, l 16:08: Route: PO, Maxwell 00 Drug form: TAB, Q4H, Dosing Weight 91.42, kg, PRN Pain, Start date: 07/21/13 11:08:00, Duration: 30 day, Stop date: 08/20/13 11:07:00 Cepacol No Meng K 1 lozenge, Me moria Lozenge 07-21 Bindal Route: PO, l 16:08: PRN, PRN Maxwell 00 Sore Throat, Start date: 07/21/13 11:08:00, Duration: 30 day, Stop date: 08/20/13 11:07:00 Maalox 2012- No Meng K 30 mL, Memoria Advanced 07-21 Bindal Route: PO, l Regular 16:08: Drug Form: Herm billie Strength 00 SUSP, SUSP Dosing Weight 91.42, kg, Q4H, PRN Indigestio n, Start date: 07/21/13 11:08:00, Duration: 30 day, Stop date: 08/20/13 11:07:00 Phenergan No Meng K 25 mg, 1 Me moria 07-21 Bindal mL, Route: l 16:08: IM, Drug Adam 00 form: INJ, Q4H, Dosing Weight 91.42, kg, PRN See Nurse's Notes, Start date: 07/21/13 11:08:00, Duration: 30 day, Stop date: 08/20/13 11:07:00, pain give with meperidine Ultram 50 No Meng K 100 mg, 2 M emoria mg oral 07-21 Bindal tab, l tablet 16:08: Route: PO, Yamilex nn 00 Drug form: TAB, Q6H, Dosing Weight 91.42, kg, PRN Pain, Start date: 07/21/13 11:08:00, Duration: 30 day, Stop date: 08/20/13 11:07:00 acetaminoph No Meng K 2 tab, Me moria en-oxycodon 07-21 Bindal Route: PO, l e 325 mg-5 16:08: Drug Form: H ermann mg oral 00 TAB, tablet Dosing Weight 91.42, kg, Q4H, PRN Pain, Start date: 07/21/13 11:08:00, Duration: 30 day, Stop date: 08/20/13 11:07:00 meperidine No Meng K 100 mg, 2 Memoria 07-21 Bindal mL, Route: l 16:08: IM, Drug Adam 00 form: INJ, Q4H, Dosing Weight 91.42, kg, PRN Pain, Start date: 07/21/13 11:08:00, Duration: 4 day, Stop date: 07/25/13 11:07:00 Zofran 2012-0 No Meng K 4 mg, 2 Memori a 9-24 Bindal mL, Route: l 16:08: IV, Drug form: INJ, Q6H, Dosing Weight 91.42, kg, PRN Nausea & Vomiting, Start date: 07/21/13 11:08:00, Duration: 30 day, Stop date: 08/20/13 11:07:00, nausea/vom iting temazepam No Meng K 30 mg, 1 Me moria 9-24 Bindal cap, l 16:08: Route: PO, Drug form: CAP, Bedtime, Dosing Weight 91.42, kg, PRN Sleep, Start date: 07/21/13 11:08:00, Duration: 30 day, Stop date: 08/20/13 11:07:00 bisacodyl 2012- No Meng K 10 mg, 2 Me moria 9-24 Bindal tab, l 16:08: Route: PO, Drug form: ECTAB, Daily, Dosing Weight 91.42, kg, PRN Constipati on, Start date: 07/21/13 11:08:00, Duration: 30 day, Stop date: 08/20/13 11:07:00 methocarbam 2012- No Meng K 750 mg, 1 Memoria ol 9-24 Bindal tab, l 16:08: Route: PO, Drug form: TAB, Q6H, Dosing Weight 91.42, kg, PRN Muscle Spasms, Start date: 07/21/13 11:08:00, Duration: 30 day, Stop date: 08/20/13 11:07:00 methocarbam 2012-0 No Meng K 750 mg, M emoria ol + Sodium 9-24 Bindal 7.5 mL, l Chloride 16:08: Route: IV, Her culp 0.9% IV 100 00 Drug form: mL INJ, Q6H, Dosing Weight 91.42, kg, PRN Muscle Spasms, Start date: 07/21/13 11:08:00, Duration: 30 day, Stop date: 08/20/13 11:07:00 [place] No Meng K 1 tab, Memoria 7.5/325 07-21 Bindal Route: PO, l oral tablet 16:08: Drug Form: Maxwell 00 TAB, Dosing Weight 91.42, kg, Q4H, PRN Pain, Start date: 07/21/13 11:08:00, Duration: 30 day, Stop date: 08/20/13 11:07:00 Cepacol No Meng K 1 lozenge, Me moria Lozenge 07-21 Bindal Route: PO, l 16:08: PRN, PRN Maxwell 00 Sore Throat, Start date: 07/21/13 11:08:00, Duration: 30 day, Stop date: 08/20/13 11:07:00 Maalox No Meng K 30 mL, Memoria Advanced 07-21 Bindal Route: PO, l Regular 16:08: Drug Form: Herm billie Strength 00 SUSP, SUSP Dosing Weight 91.42, kg, Q4H, PRN Indigestio n, Start date: 07/21/13 11:08:00, Duration: 30 day, Stop date: 08/20/13 11:07:00 Phenergan No Meng K 25 mg, 1 Me moria 07-21 Bindal mL, Route: l 16:08: IM, Drug Adam 00 form: INJ, Q4H, Dosing Weight 91.42, kg, PRN See Nurse's Notes, Start date: 07/21/13 11:08:00, Duration: 30 day, Stop date: 08/20/13 11:07:00, pain give with meperidine Ultram 50 No Meng K 100 mg, 2 M emoria mg oral 07-21 Bindal tab, l tablet 16:08: Route: PO, Yamilex nn 00 Drug form: TAB, Q6H, Dosing Weight 91.42, kg, PRN Pain, Start date: 07/21/13 11:08:00, Duration: 30 day, Stop date: 08/20/13 11:07:00 acetaminoph No Meng K 2 tab, Me moria en-oxycodon 07-21 Bindal Route: PO, l e 325 mg-5 16:08: Drug Form: H ermann mg oral 00 TAB, tablet Dosing Weight 91.42, kg, Q4H, PRN Pain, Start date: 07/21/13 11:08:00, Duration: 30 day, Stop date: 08/20/13 11:07:00 meperidine No Meng K 100 mg, 2 Memoria 9-24 Bindal mL, Route: l 16:08: IM, Drug form: INJ, Q4H, Dosing Weight 91.42, kg, PRN Pain, Start date: 07/21/13 11:08:00, Duration: 4 day, Stop date: 07/25/13 11:07:00 Zofran 2012- No Meng K 4 mg, 2 Memori a 9-24 Bindal mL, Route: l 16:08: IV, Drug form: INJ, Q6H, Dosing Weight 91.42, kg, PRN Nausea & Vomiting, Start date: 07/21/13 11:08:00, Duration: 30 day, Stop date: 08/20/13 11:07:00, nausea/vom iting temazepam 2012- No Meng K 30 mg, 1 Me moria 9-24 Bindal cap, l 16:08: Route: PO, Drug form: CAP, Bedtime, Dosing Weight 91.42, kg, PRN Sleep, Start date: 07/21/13 11:08:00, Duration: 30 day, Stop date: 08/20/13 11:07:00 bisacodyl 2012-0 No Meng K 10 mg, 2 Me moria 9-24 Bindal tab, l 16:08: Route: PO, Maxwell 00 Drug form: ECTAB, Daily, Dosing Weight 91.42, kg, PRN Constipati on, Start date: 07/21/13 11:08:00, Duration: 30 day, Stop date: 08/20/13 11:07:00 methocarbam 2012-0 No Meng K 750 mg, 1 Memoria ol 9-24 Bindal tab, l 16:08: Route: PO, Maxwell 00 Drug form: TAB, Q6H, Dosing Weight 91.42, kg, PRN Muscle Spasms, Start date: 07/21/13 11:08:00, Duration: 30 day, Stop date: 08/20/13 11:07:00 methocarbam No Meng K 750 mg, M emoria ol + Sodium - Bindal 7.5 mL, l Chloride 16:08: Route: IV, Her culp 0.9% IV 100 00 Drug form: mL INJ, Q6H, Dosing Weight 91.42, kg, PRN Muscle Spasms, Start date: 07/21/13 11:08:00, Duration: 30 day, Stop date: 08/20/13 11:07:00 [place] No Meng K 1 tab, Memoria 7.5/325 07-21 Bindal Route: PO, l oral tablet 16:08: Drug Form: Maxwell 00 TAB, Dosing Weight 91.42, kg, Q4H, PRN Pain, Start date: 07/21/13 11:08:00, Duration: 30 day, Stop date: 08/20/13 11:07:00 1/2NS + KCL No Meng K 1,000 mL, Memoria 20mEq/L 07-21 Bindal Rate: 75 l 1000ml 16:08: ml/hr, Maxwell (Premix) 00 Infuse 1,000 mL over: 13.3 hr, Route: IV, Dosing Weight 91.42 kg, Total Volume: 1,000, Start date: 07/21/13 11:08:00, Duration: 30 day, Stop date: 08/20/13 11:07:00 acetaminoph No Meng K 650 mg, 2 Memoria en 07-21 Bindal tab, l 16:08: Route: PO, Adam 00 Drug form: TAB, Q4H, Dosing Weight 91.42, kg, PRN Pain, Start date: 07/21/13 11:08:00, Duration: 30 day, Stop date: 08/20/13 11:07:00 Cepacol No Meng K 1 lozenge, Me moria Lozenge 07-21 Bindal Route: PO, l 16:08: PRN, PRN Maxwell Sore Throat, Start date: 07/21/13 11:08:00, Duration: 30 day, Stop date: 08/20/13 11:07:00 Maalox No Meng K 30 mL, Memoria Advanced 9-24 Bindal Route: PO, l Regular 16:08: Drug Form: Herm billie Strength 00 SUSP, SUSP Dosing Weight 91.42, kg, Q4H, PRN Indigestio n, Start date: 07/21/13 11:08:00, Duration: 30 day, Stop date: 08/20/13 11:07:00 Phenergan 2012-0 No Meng K 25 mg, 1 Me moria 9-24 Bindal mL, Route: l 16:08: IM, Drug Adam 00 form: INJ, Q4H, Dosing Weight 91.42, kg, PRN See Nurse's Notes, Start date: 07/21/13 11:08:00, Duration: 30 day, Stop date: 08/20/13 11:07:00, pain give with meperidine Ultram 50 No Meng K 100 mg, 2 M emoria mg oral 9-24 Bindal tab, l tablet 16:08: Route: PO, Yamilex nn 00 Drug form: TAB, Q6H, Dosing Weight 91.42, kg, PRN Pain, Start date: 07/21/13 11:08:00, Duration: 30 day, Stop date: 08/20/13 11:07:00 acetaminoph 2012- No Meng K 2 tab, Me moria en-oxycodon 9-24 Bindal Route: PO, l e 325 mg-5 16:08: Drug Form: H ermann mg oral 00 TAB, tablet Dosing Weight 91.42, kg, Q4H, PRN Pain, Start date: 07/21/13 11:08:00, Duration: 30 day, Stop date: 08/20/13 11:07:00 meperidine No Meng K 100 mg, 2 Memoria 9-24 Bindal mL, Route: l 16:08: IM, Drug Maxwell 00 form: INJ, Q4H, Dosing Weight 91.42, kg, PRN Pain, Start date: 07/21/13 11:08:00, Duration: 4 day, Stop date: 07/25/13 11:07:00 Zofran 2012-0 No Meng K 4 mg, 2 Memori a 9-24 Bindal mL, Route: l 16:08: IV, Drug Maxwell 00 form: INJ, Q6H, Dosing Weight 91.42, kg, PRN Nausea & Vomiting, Start date: 07/21/13 11:08:00, Duration: 30 day, Stop date: 08/20/13 11:07:00, nausea/vom iting temazepam 2012- No Meng K 30 mg, 1 Me moria 9-24 Bindal cap, l 16:08: Route: PO, Drug form: CAP, Bedtime, Dosing Weight 91.42, kg, PRN Sleep, Start date: 07/21/13 11:08:00, Duration: 30 day, Stop date: 08/20/13 11:07:00 bisacodyl 2012- No Meng K 10 mg, 2 Me moria 9-24 Bindal tab, l 16:08: Route: PO, Drug form: ECTAB, Daily, Dosing Weight 91.42, kg, PRN Constipati on, Start date: 07/21/13 11:08:00, Duration: 30 day, Stop date: 08/20/13 11:07:00 methocarbam No Meng K 750 mg, 1 Memoria ol -24 Bindal tab, l 16:08: Route: PO, Drug form: TAB, Q6H, Dosing Weight 91.42, kg, PRN Muscle Spasms, Start date: 07/21/13 11:08:00, Duration: 30 day, Stop date: 08/20/13 11:07:00 methocarbam 2012-0 No Meng K 750 mg, M emoria ol + Sodium -24 Bindal 7.5 mL, l Chloride 16:08: Route: IV, Her culp 0.9% IV 100 00 Drug form: mL INJ, Q6H, Dosing Weight 91.42, kg, PRN Muscle Spasms, Start date: 07/21/13 11:08:00, Duration: 30 day, Stop date: 08/20/13 11:07:00 [place] 2012-0 No Meng K 1 tab, Memoria 7.5/325 9-24 Bindal Route: PO, l oral tablet 16:08: Drug Form: TAB, Dosing Weight 91.42, kg, Q4H, PRN Pain, Start date: 07/21/13 11:08:00, Duration: 30 day, Stop date: 08/20/13 11:07:00 1/2NS + KCL 2012- No Meng K 1,000 mL, Memoria 20mEq/L 07-21 Bindal Rate: 75 l 1000ml 16:08: ml/hr, Adam (Premix) 00 Infuse 1,000 mL over: 13.3 hr, Route: IV, Dosing Weight 91.42 kg, Total Volume: 1,000, Start date: 07/21/13 11:08:00, Duration: 30 day, Stop date: 08/20/13 11:07:00 acetaminoph No Meng K 650 mg, 2 Memoria en 07-21 Bindal tab, l 16:08: Route: PO, Adam 00 Drug form: TAB, Q4H, Dosing Weight 91.42, kg, PRN Pain, Start date: 07/21/13 11:08:00, Duration: 30 day, Stop date: 08/20/13 11:07:00 Cepacol No Meng K 1 lozenge, Me moria Lozenge 07-21 Bindal Route: PO, l 16:08: PRN, PRN Maxwell Sore Throat, Start date: 07/21/13 11:08:00, Duration: 30 day, Stop date: 08/20/13 11:07:00 Maalox No Meng K 30 mL, Memoria Advanced 07-21 Bindal Route: PO, l Regular 16:08: Drug Form: Herm billie Strength 00 SUSP, SUSP Dosing Weight 91.42, kg, Q4H, PRN Indigestio n, Start date: 07/21/13 11:08:00, Duration: 30 day, Stop date: 08/20/13 11:07:00 Phenergan No Meng K 25 mg, 1 Me moria 07-21 Bindal mL, Route: l 16:08: IM, Drug Maxwell 00 form: INJ, Q4H, Dosing Weight 91.42, kg, PRN See Nurse's Notes, Start date: 07/21/13 11:08:00, Duration: 30 day, Stop date: 08/20/13 11:07:00, pain give with meperidine Ultram 50 No Meng K 100 mg, 2 M emoria mg oral 9-24 Bindal tab, l tablet 16:08: Route: PO, Yamilex Drug form: TAB, Q6H, Dosing Weight 91.42, kg, PRN Pain, Start date: 07/21/13 11:08:00, Duration: 30 day, Stop date: 08/20/13 11:07:00 acetaminoph No Meng K 2 tab, Me moria en-oxycodon 9-24 Bindal Route: PO, l e 325 mg-5 16:08: Drug Form: H ermann mg oral 00 TAB, tablet Dosing Weight 91.42, kg, Q4H, PRN Pain, Start date: 07/21/13 11:08:00, Duration: 30 day, Stop date: 08/20/13 11:07:00 meperidine No Meng K 100 mg, 2 Memoria 9-24 Bindal mL, Route: l 16:08: IM, Drug form: INJ, Q4H, Dosing Weight 91.42, kg, PRN Pain, Start date: 07/21/13 11:08:00, Duration: 4 day, Stop date: 07/25/13 11:07:00 Zofran No Meng K 4 mg, 2 Memori a 9-24 Bindal mL, Route: l 16:08: IV, Drug form: INJ, Q6H, Dosing Weight 91.42, kg, PRN Nausea & Vomiting, Start date: 07/21/13 11:08:00, Duration: 30 day, Stop date: 08/20/13 11:07:00, nausea/vom iting temazepam No Meng K 30 mg, 1 Me moria 9-24 Bindal cap, l 16:08: Route: PO, Adam 00 Drug form: CAP, Bedtime, Dosing Weight 91.42, kg, PRN Sleep, Start date: 07/21/13 11:08:00, Duration: 30 day, Stop date: 08/20/13 11:07:00 bisacodyl No Meng K 10 mg, 2 Me moria 9-24 Bindal tab, l 16:08: Route: PO, Adam 00 Drug form: ECTAB, Daily, Dosing Weight 91.42, kg, PRN Constipati on, Start date: 07/21/13 11:08:00, Duration: 30 day, Stop date: 08/20/13 11:07:00 methocarbam No Meng K 750 mg, 1 Memoria ol 9-24 Bindal tab, l 16:08: Route: PO, Maxwell Drug form: TAB, Q6H, Dosing Weight 91.42, kg, PRN Muscle Spasms, Start date: 07/21/13 11:08:00, Duration: 30 day, Stop date: 08/20/13 11:07:00 methocarbam No Meng K 750 mg, M emoria ol + Sodium 9-24 Bindal 7.5 mL, l Chloride 16:08: Route: IV, Her culp 0.9% IV 100 00 Drug form: mL INJ, Q6H, Dosing Weight 91.42, kg, PRN Muscle Spasms, Start date: 07/21/13 11:08:00, Duration: 30 day, Stop date: 08/20/13 11:07:00 [place] No Meng K 1 tab, Memoria 7.5/325 9-24 Bindal Route: PO, l oral tablet 16:08: Drug Form: Maxwell 00 TAB, Dosing Weight 91.42, kg, Q4H, PRN Pain, Start date: 07/21/13 11:08:00, Duration: 30 day, Stop date: 08/20/13 11:07:00 1/2NS + KCL No Meng K 1,000 mL, Memoria 20mEq/L 9-24 Bindal Rate: 75 l 1000ml 16:08: ml/hr, Adam (Premix) 00 Infuse 1,000 mL over: 13.3 hr, Route: IV, Dosing Weight 91.42 kg, Total Volume: 1,000, Start date: 07/21/13 11:08:00, Duration: 30 day, Stop date: 08/20/13 11:07:00 acetaminoph No Meng K 650 mg, 2 Memoria en 9-24 Bindal tab, l 16:08: Route: PO, Adam Drug form: TAB, Q4H, Dosing Weight 91.42, kg, PRN Pain, Start date: 07/21/13 11:08:00, Duration: 30 day, Stop date: 08/20/13 11:07:00 Cepacol 2012- No Meng K 1 lozenge, Me moria Lozenge 07-21 Bindal Route: PO, l 16:08: PRN, PRN Maxwell 00 Sore Throat, Start date: 07/21/13 11:08:00, Duration: 30 day, Stop date: 08/20/13 11:07:00 Maalox No Meng K 30 mL, Memoria Advanced 07-21 Bindal Route: PO, l Regular 16:08: Drug Form: Herm billie Strength 00 SUSP, SUSP Dosing Weight 91.42, kg, Q4H, PRN Indigestio n, Start date: 07/21/13 11:08:00, Duration: 30 day, Stop date: 08/20/13 11:07:00 Phenergan No Meng K 25 mg, 1 Me moria 07-21 Bindal mL, Route: l 16:08: IM, Drug Maxwell 00 form: INJ, Q4H, Dosing Weight 91.42, kg, PRN See Nurse's Notes, Start date: 07/21/13 11:08:00, Duration: 30 day, Stop date: 08/20/13 11:07:00, pain give with meperidine Ultram 50 No Meng K 100 mg, 2 M emoria mg oral 07-21 Bindal tab, l tablet 16:08: Route: PO, Yamilex nn 00 Drug form: TAB, Q6H, Dosing Weight 91.42, kg, PRN Pain, Start date: 07/21/13 11:08:00, Duration: 30 day, Stop date: 08/20/13 11:07:00 acetaminoph No Meng K 2 tab, Me moria en-oxycodon 07-21 Bindal Route: PO, l e 325 mg-5 16:08: Drug Form: H ermann mg oral 00 TAB, tablet Dosing Weight 91.42, kg, Q4H, PRN Pain, Start date: 07/21/13 11:08:00, Duration: 30 day, Stop date: 08/20/13 11:07:00 meperidine No Meng K 100 mg, 2 Memoria 9-24 Bindal mL, Route: l 16:08: IM, Drug form: INJ, Q4H, Dosing Weight 91.42, kg, PRN Pain, Start date: 07/21/13 11:08:00, Duration: 4 day, Stop date: 07/25/13 11:07:00 Zofran No Meng K 4 mg, 2 Memori a 9-24 Bindal mL, Route: l 16:08: IV, Drug form: INJ, Q6H, Dosing Weight 91.42, kg, PRN Nausea & Vomiting, Start date: 07/21/13 11:08:00, Duration: 30 day, Stop date: 08/20/13 11:07:00, nausea/vom iting temazepam No Meng K 30 mg, 1 Me moria 9-24 Bindal cap, l 16:08: Route: PO, Drug form: CAP, Bedtime, Dosing Weight 91.42, kg, PRN Sleep, Start date: 07/21/13 11:08:00, Duration: 30 day, Stop date: 08/20/13 11:07:00 bisacodyl No Meng K 10 mg, 2 Me moria 9-24 Bindal tab, l 16:08: Route: PO, Drug form: ECTAB, Daily, Dosing Weight 91.42, kg, PRN Constipati on, Start date: 07/21/13 11:08:00, Duration: 30 day, Stop date: 08/20/13 11:07:00 methocarbam No Meng K 750 mg, 1 Memoria ol 9-24 Bindal tab, l 16:08: Route: PO, Drug form: TAB, Q6H, Dosing Weight 91.42, kg, PRN Muscle Spasms, Start date: 07/21/13 11:08:00, Duration: 30 day, Stop date: 08/20/13 11:07:00 methocarbam No Meng K 750 mg, M emoria ol + Sodium 9-24 Bindal 7.5 mL, l Chloride 16:08: Route: IV, Her culp 0.9% IV 100 00 Drug form: mL INJ, Q6H, Dosing Weight 91.42, kg, PRN Muscle Spasms, Start date: 07/21/13 11:08:00, Duration: 30 day, Stop date: 08/20/13 11:07:00 [place] 2012- No Meng K 1 tab, Memoria 7.5/325 07-21 Bindal Route: PO, l oral tablet 16:08: Drug Form: Maxwell 00 TAB, Dosing Weight 91.42, kg, Q4H, PRN Pain, Start date: 07/21/13 11:08:00, Duration: 30 day, Stop date: 08/20/13 11:07:00 1/2NS + KCL No Meng K 1,000 mL, Memoria 20mEq/L 07-21 Bindal Rate: 75 l 1000ml 16:08: ml/hr, Adam (Premix) 00 Infuse 1,000 mL over: 13.3 hr, Route: IV, Dosing Weight 91.42 kg, Total Volume: 1,000, Start date: 07/21/13 11:08:00, Duration: 30 day, Stop date: 08/20/13 11:07:00 acetaminoph No Meng K 650 mg, 2 Memoria en 07-21 Bindal tab, l 16:08: Route: PO, Maxwell 00 Drug form: TAB, Q4H, Dosing Weight 91.42, kg, PRN Pain, Start date: 07/21/13 11:08:00, Duration: 30 day, Stop date: 08/20/13 11:07:00 Cepacol 2012- No Meng K 1 lozenge, Me moria Lozenge 07-21 Bindal Route: PO, l 16:08: PRN, PRN Adam 00 Sore Throat, Start date: 07/21/13 11:08:00, Duration: 30 day, Stop date: 08/20/13 11:07:00 Maalox 2012-0 No Meng K 30 mL, Memoria Advanced 07-21 Bindal Route: PO, l Regular 16:08: Drug Form: Herm billie Strength 00 SUSP, SUSP Dosing Weight 91.42, kg, Q4H, PRN Indigestio n, Start date: 07/21/13 11:08:00, Duration: 30 day, Stop date: 08/20/13 11:07:00 Phenergan 2012-0 No Meng K 25 mg, 1 Me moria 9-24 Bindal mL, Route: l 16:08: IM, Drug Maxwell 00 form: INJ, Q4H, Dosing Weight 91.42, kg, PRN See Nurse's Notes, Start date: 07/21/13 11:08:00, Duration: 30 day, Stop date: 08/20/13 11:07:00, pain give with meperidine Ultram 50 2012- No Meng K 100 mg, 2 M emoria mg oral 9-24 Bindal tab, l tablet 16:08: Route: PO, Yamilex nn 00 Drug form: TAB, Q6H, Dosing Weight 91.42, kg, PRN Pain, Start date: 07/21/13 11:08:00, Duration: 30 day, Stop date: 08/20/13 11:07:00 acetaminoph 2012- No Meng K 2 tab, Me moria en-oxycodon 9-24 Bindal Route: PO, l e 325 mg-5 16:08: Drug Form: H ermann mg oral 00 TAB, tablet Dosing Weight 91.42, kg, Q4H, PRN Pain, Start date: 07/21/13 11:08:00, Duration: 30 day, Stop date: 08/20/13 11:07:00 meperidine 2012- No Meng K 100 mg, 2 Memoria 9-24 Bindal mL, Route: l 16:08: IM, Drug Adam 00 form: INJ, Q4H, Dosing Weight 91.42, kg, PRN Pain, Start date: 07/21/13 11:08:00, Duration: 4 day, Stop date: 07/25/13 11:07:00 Zofran 2012-0 No Meng K 4 mg, 2 Memori a 9-24 Bindal mL, Route: l 16:08: IV, Drug Adam 00 form: INJ, Q6H, Dosing Weight 91.42, kg, PRN Nausea & Vomiting, Start date: 07/21/13 11:08:00, Duration: 30 day, Stop date: 08/20/13 11:07:00, nausea/vom iting temazepam No Meng K 30 mg, 1 Me moria 9-24 Bindal cap, l 16:08: Route: PO, Drug form: CAP, Bedtime, Dosing Weight 91.42, kg, PRN Sleep, Start date: 07/21/13 11:08:00, Duration: 30 day, Stop date: 08/20/13 11:07:00 bisacodyl No Meng K 10 mg, 2 Me moria 9-24 Bindal tab, l 16:08: Route: PO, Drug form: ECTAB, Daily, Dosing Weight 91.42, kg, PRN Constipati on, Start date: 07/21/13 11:08:00, Duration: 30 day, Stop date: 08/20/13 11:07:00 methocarbam No Meng K 750 mg, 1 Memoria ol -24 Bindal tab, l 16:08: Route: PO, Drug form: TAB, Q6H, Dosing Weight 91.42, kg, PRN Muscle Spasms, Start date: 07/21/13 11:08:00, Duration: 30 day, Stop date: 08/20/13 11:07:00 methocarbam No Meng K 750 mg, M emoria ol + Sodium -24 Bindal 7.5 mL, l Chloride 16:08: Route: IV, Her culp 0.9% IV 100 00 Drug form: mL INJ, Q6H, Dosing Weight 91.42, kg, PRN Muscle Spasms, Start date: 07/21/13 11:08:00, Duration: 30 day, Stop date: 08/20/13 11:07:00 [place] No Meng K 1 tab, Memoria 7.5/325 07-21 Bindal Route: PO, l oral tablet 16:08: Drug Form: Maxwell 00 TAB, Dosing Weight 91.42, kg, Q4H, PRN Pain, Start date: 07/21/13 11:08:00, Duration: 30 day, Stop date: 08/20/13 11:07:00 1/2NS + KCL No Meng K 1,000 mL, Memoria 20mEq/L 9-24 Bindal Rate: 75 l 1000ml 16:08: ml/hr, Adam (Premix) 00 Infuse 1,000 mL over: 13.3 hr, Route: IV, Dosing Weight 91.42 kg, Total Volume: 1,000, Start date: 07/21/13 11:08:00, Duration: 30 day, Stop date: 08/20/13 11:07:00 acetaminoph 2012- No Meng K 650 mg, 2 Memoria en 07-21 Bindal tab, l 16:08: Route: PO, Adam 00 Drug form: TAB, Q4H, Dosing Weight 91.42, kg, PRN Pain, Start date: 07/21/13 11:08:00, Duration: 30 day, Stop date: 08/20/13 11:07:00 carvedilol 2012- Yes Substituti M emoria 6.25 mg 9-17 on Allowed l oral tablet 20:15: Slava Alfaro carvedilol Yes Substituti M emoria 6.25 mg 9-17 on Allowed l oral tablet 20:15: Slava Alfaro carvedilol 2012- Yes Substituti M emoria 6.25 mg 9-17 on Allowed l oral tablet 20:15: Slava Alfaro carvedilol 2012- Yes Substituti M emoria 6.25 mg 9-17 on Allowed l oral tablet 20:15: Slava Alfaro carvedilol 2012- Yes Substituti M emoria 6.25 mg 9-17 on Allowed l oral tablet 20:15: Slava Alfaro carvedilol 2012- Yes Substituti M emoria 6.25 mg 9-17 on Allowed l oral tablet 20:15: Slava Alfaro Lidoderm 5% Yes Substituti Memoria topical 9-17 on Allowed l film 20:12: Adam (patch) 08 Lidoderm 5% 2012- Yes Substituti Memoria topical 9-17 on Allowed l film 20:12: Adam (patch) 08 Lidoderm 5% 2012- Yes Substituti Memoria topical 9-17 on Allowed l film 20:12: Adam (patch) 08 Lidoderm 5% Yes Substituti Memoria topical 9-17 on Allowed l film 20:12: Adam (patch) 08 Lidoderm 5% Yes Substituti Memoria topical 9-17 on Allowed l film 20:12: Adam (patch) 08 Lidoderm 5% Yes Substituti Memoria topical 9-17 on Allowed l film 20:12: Adam (patch) 08 Cymbalta 30 Yes Meng K 30 mg, 1 Memoria mg oral 9-17 Bindal cap, PO, l delayed 20:11: Daily, Adam release 28 Substituti capsule on Allowed Cymbalta 30 Yes Meng K 30 mg, 1 Memoria mg oral 9-17 Bindal cap, PO, l delayed 20:11: Daily, Maxwell release 28 Substituti capsule on Allowed Cymbalta 30 Yes Meng K 30 mg, 1 Memoria mg oral 9-17 Bindal cap, PO, l delayed 20:11: Daily, Adam release 28 Substituti capsule on Allowed Cymbalta 30 Yes Meng K 30 mg, 1 Memoria mg oral 9-17 Bindal cap, PO, l delayed 20:11: Daily, Maxwell release 28 Substituti capsule on Allowed Cymbalta 30 Yes Meng K 30 mg, 1 Memoria mg oral 9-17 Bindal cap, PO, l delayed 20:11: Daily, Adam release 28 Substituti capsule on Allowed Cymbalta 30 Yes Meng K 30 mg, 1 Memoria mg oral 9-17 Bindal cap, PO, l delayed 20:11: Daily, Adam release 28 Substituti capsule on Allowed losartan Yes Meng K 100 mg, 1 Me moria 100 mg oral 9-17 Bindal tab, PO, l tablet 20:11: Daily, Adam 13 Substituti on Allowed losartan Yes Meng K 100 mg, 1 Me moria 100 mg oral 9-17 Bindal tab, PO, l tablet 20:11: Daily, Adam 13 Substituti on Allowed losartan Yes Meng K 100 mg, 1 Me moria 100 mg oral 9-17 Bindal tab, PO, l tablet 20:11: Daily, Adam 13 Substituti on Allowed losartan Yes Meng K 100 mg, 1 Me moria 100 mg oral 9-17 Bindal tab, PO, l tablet 20:11: Daily, Adam 13 Substituti on Allowed losartan Yes Meng K 100 mg, 1 Me moria 100 mg oral 9-17 Bindal tab, PO, l tablet 20:11: Daily, Adam 13 Substituti on Allowed losartan Yes Megn K 100 mg, 1 Me moria 100 mg oral 9-17 Bindal tab, PO, l tablet 20:11: Daily, Adam 13 Substituti on Allowed VESIcare 5 Yes Meng K 5 mg, 1 Me moria mg oral 9-17 Bindal tab, PO, l tablet 20:09: Daily, Adam 59 Substituti on Allowed VESIcare 5 Yes Meng K 5 mg, 1 Me moria mg oral 9-17 Bindal tab, PO, l tablet 20:09: Daily, Adam 59 Substituti on Allowed VESIcare 5 Yes Meng K 5 mg, 1 Me moria mg oral 9-17 Bindal tab, PO, l tablet 20:09: Daily, Adam 59 Substituti on Allowed VESIcare 5 Yes Meng K 5 mg, 1 Me moria mg oral 9-17 Bindal tab, PO, l tablet 20:09: Daily, Adam 59 Substituti on Allowed VESIcare 5 Yes Meng K 5 mg, 1 Me moria mg oral 9-17 Bindal tab, PO, l tablet 20:09: Daily, Adam 59 Substituti on Allowed VESIcare 5 Yes Meng K 5 mg, 1 Me moria mg oral 9-17 Bindal tab, PO, l tablet 20:09: Daily, Adam 59 Substituti on Allowed levothyroxi Yes Meng K 75 Yariel mariza ne 75 mcg 9-17 Bindal microgram, l (0.075 mg) 20:09: 1 tab, PO, H ermann oral tablet 46 Daily, Substituti on Allowed levothyroxi Yes Meng K 75 Yariel mariza ne 75 mcg 9-17 Bindal microgram, l (0.075 mg) 20:09: 1 tab, PO, H ermann oral tablet 46 Daily, Substituti on Allowed levothyroxi Yes Meng K 75 Yariel mariza ne 75 mcg 9-17 Bindal microgram, l (0.075 mg) 20:09: 1 tab, PO, H ermann oral tablet 46 Daily, Substituti on Allowed levothyroxi Yes Meng K 75 Yariel mariza ne 75 mcg 9-17 Bindal microgram, l (0.075 mg) 20:09: 1 tab, PO, H ermann oral tablet 46 Daily, Substituti on Allowed levothyroxi Yes Meng K 75 Yariel mariza ne 75 mcg 9-17 Bindal microgram, l (0.075 mg) 20:09: 1 tab, PO, H ermann oral tablet 46 Daily, Substituti on Allowed levothyroxi Yes Meng K 75 Yariel mariza ne 75 mcg 9-17 Bindal microgram, l (0.075 mg) 20:09: 1 tab, PO, H ermann oral tablet 46 Daily, Substituti on Allowed metFORmin Yes 1,000 mg, Mem oria 500 mg oral 9-17 2 tab, PO, l tablet 20:09: Substituti Yamilex nn 23 on Allowed metFORmin Yes 1,000 mg, Mem oria 500 mg oral 9-17 2 tab, PO, l tablet 20:09: Substituti Yamilex nn 23 on Allowed metFORmin Yes 1,000 mg, Mem oria 500 mg oral 9-17 2 tab, PO, l tablet 20:09: Substituti Yamilex nn 23 on Allowed metFORmin Yes 1,000 mg, Mem oria 500 mg oral 9-17 2 tab, PO, l tablet 20:09: Substituti Yamilex nn 23 on Allowed metFORmin Yes 1,000 mg, Mem oria 500 mg oral 9-17 2 tab, PO, l tablet 20:09: Substituti Yamilex nn 23 on Allowed metFORmin Yes 1,000 mg, Mem oria 500 mg oral 9-17 2 tab, PO, l tablet 20:09: Substituti Yamilex nn 23 on Allowed aspirin 81 Yes 81 mg, 1 Mem oria mg tablet, 9-17 tab, PO, l enteric 20:09: Daily, 0 Slava n coated 08 tab, Substituti on Allowed, ECTAB aspirin 81 2013-0 Yes 81 mg, 1 Mem oria mg tablet, 9-17 tab, PO, l enteric 20:09: Daily, 0 Slava n coated 08 tab, Substituti on Allowed, ECTAB aspirin 81 Yes 81 mg, 1 Mem oria mg tablet, 9-17 tab, PO, l enteric 20:09: Daily, 0 Slava n coated 08 tab, Substituti on Allowed, ECTAB aspirin 81 Yes 81 mg, 1 Mem oria mg tablet, 9-17 tab, PO, l enteric 20:09: Daily, 0 Slava n coated 08 tab, Substituti on Allowed, ECTAB aspirin 81 Yes 81 mg, 1 Mem oria mg tablet, 9-17 tab, PO, l enteric 20:09: Daily, 0 Slava n coated 08 tab, Substituti on Allowed, ECTAB aspirin 81 Yes 81 mg, 1 Mem oria mg tablet, 9-17 tab, PO, l enteric 20:09: Daily, 0 Slava n coated 08 tab, Substituti on Allowed, ECTAB simvastatin Yes Meng K 20 mg, 1 Memoria 20 mg oral 9-17 Bindal tab, PO, l tablet 20:08: Bedtime, Maxwell 53 30 tab, Substituti on Allowed simvastatin Yes Meng K 20 mg, 1 Memoria 20 mg oral 9-17 Bindal tab, PO, l tablet 20:08: Bedtime, Maxwell 53 30 tab, Substituti on Allowed simvastatin Yes Meng K 20 mg, 1 Memoria 20 mg oral 9-17 Bindal tab, PO, l tablet 20:08: Bedtime, Adam 53 30 tab, Substituti on Allowed simvastatin Yes Meng K 20 mg, 1 Memoria 20 mg oral 9-17 Bindal tab, PO, l tablet 20:08: Bedtime, Adam 53 30 tab, Substituti on Allowed simvastatin Yes Meng K 20 mg, 1 Memoria 20 mg oral 9-17 Bindal tab, PO, l tablet 20:08: Bedtime, Maxwell 53 30 tab, Substituti on Allowed simvastatin Yes Meng K 20 mg, 1 Memoria 20 mg oral 9-17 Bindal tab, PO, l tablet 20:08: Bedtime, Adam 53 30 tab, Substituti on Allowed omeprazole 0 Yes PO, Daily, M emoria 9-17 Substituti l 20:08: on Allowed Adam 40 omeprazole 0 Yes PO, Daily, M emoria 9-17 Substituti l 20:08: on Allowed Adam 40 omeprazole 2012-0 Yes PO, Daily, M emoria 9-17 Substituti l 20:08: on Allowed Adam 40 omeprazole 2012-0 Yes PO, Daily, M emoria 9-17 Substituti l 20:08: on Allowed Maxwell 40 omeprazole 2012-0 Yes PO, Daily, M emoria 9-17 Substituti l 20:08: on Allowed Maxwell 40 omeprazole 2012-0 Yes PO, Daily, M emoria 9-17 Substituti l 20:08: on Allowed Adam 40 gabapentin Yes Meng K 600 mg, 1 Memoria 600 mg oral 9-17 Bindal tab, PO, l tablet 20:08: BID, Adam Substituti on Allowed gabapentin Yes Meng K 600 mg, 1 Memoria 600 mg oral 9-17 Bindal tab, PO, l tablet 20:08: BID, Adam Bass Substituti on Allowed gabapentin Yes Meng K 600 mg, 1 Memoria 600 mg oral 9-17 Bindal tab, PO, l tablet 20:08: BID, Adam Bass Substituti on Allowed gabapentin Yes Meng K 600 mg, 1 Memoria 600 mg oral 9-17 Bindal tab, PO, l tablet 20:08: BID, Adam Bass Substituti on Allowed gabapentin Yes Meng K 600 mg, 1 Memoria 600 mg oral 9-17 Bindal tab, PO, l tablet 20:08: BID, Adam Substituti on Allowed gabapentin Yes Meng K 600 mg, 1 Memoria 600 mg oral 9-17 Bindal tab, PO, l tablet 20:08: BID, Adam Substituti on Allowed influenza No SYSTEM 0.5 mL, Mem oria virus 07-14 SYSTEM Route: IM, l vaccine, 19:52: Drug Form: Her culp inactivated 32 SUSP, ONCALL, Start date: 07/14/13 14:52:32, Stop date: 08/13/13 14:47:32 influenza 2012-0 No SYSTEM 0.5 mL, Mem oria virus 9-17 SYSTEM Route: IM, l vaccine, 19:52: Drug Form: Her robbi inactivated 32 SUSP, ONCALL, Start date: 07/14/13 14:52:32, Stop date: 08/13/13 14:47:32 influenza 2012-0 No SYSTEM 0.5 mL, Mem oria virus 9-17 SYSTEM Route: IM, l vaccine, 19:52: Drug Form: Her culp inactivated 32 SUSP, ONCALL, Start date: 07/14/13 14:52:32, Stop date: 08/13/13 14:47:32 influenza 2012-0 No SYSTEM 0.5 mL, Mem oria virus 9-17 SYSTEM Route: IM, l vaccine, 19:52: Drug Form: Her robbi inactivated 32 SUSP, ONCALL, Start date: 07/14/13 14:52:32, Stop date: 08/13/13 14:47:32 influenza 2012-0 No SYSTEM 0.5 mL, Mem oria virus 9-17 SYSTEM Route: IM, l vaccine, 19:52: Drug Form: Her robbi inactivated 32 SUSP, ONCALL, Start date: 07/14/13 14:52:32, Stop date: 08/13/13 14:47:32 influenza 2012-0 No SYSTEM 0.5 mL, Mem oria virus 9-17 SYSTEM Route: IM, l vaccine, 19:52: Drug Form: Her robbi inactivated 32 SUSP, ONCALL, Start date: 07/14/13 14:52:32, Stop date: 08/13/13 14:47:32 Immunizations Ordered Filled Immunization Date Status Comments [facility] e Immunization Name Name SARS-COV-2 COVID-19 2022-08-29 Completed [facility]ive [facility] of VACCINE 12 YRS+, 00:00:00 [place] [facility] BIVALENT 0.5ML, IM, Branc h (MODERNA BOOSTER) SARS-COV-2 COVID-19 2022-08-29 Completed Unive rsity of VACCINE 12 YRS+, 00:00:00 [place] [facility] BIVALENT 0.5ML, IM, Branc h (MODERNA BOOSTER) SARS-COV-2 COVID-19 2022-08-29 Completed Unive rsity of VACCINE 12 YRS+, 00:00:00 [place] [facility] BIVALENT 0.5ML, IM, Branc h (MODERNA) SARS-COV-2 COVID-19 2022-08-29 Completed Unive rsity of VACCINE 12 YRS+, 00:00:00 [place] [facility] BIVALENT 0.5ML, IM, Branc h (MODERNA) SARS-COV-2 COVID-19 2022-08-29 Completed Unive rsity of VACCINE 12 YRS+, 00:00:00 [place] [facility] BIVALENT 0.5ML, IM, Branc h (MODERNA) SARS-COV-2 COVID-19 2022-08-29 Completed Unive rsity of VACCINE 12 YRS+, 00:00:00 [place] [facility] BIVALENT 0.5ML, IM, Branc h (MODERNA) SARS-COV-2 COVID-19 2022-08-29 Completed Unive rsity of VACCINE 12 YRS+, 00:00:00 [place] [facility] BIVALENT 0.5ML, IM, Branc h (MODERNA) SARS-COV-2 COVID-19 2022-08-29 Completed Unive rsity of VACCINE 12 YRS+, 00:00:00 [place] [facility] BIVALENT 0.5ML, IM, Branc h (MODERNA BOOSTER) SARS-COV-2 COVID-19 2022-08-29 Completed Unive rsity of VACCINE 12 YRS+, 00:00:00 [place] [facility] BIVALENT 0.5ML, IM, Branc h (MODERNA BOOSTER) SARS-COV-2 COVID-19 2022-08-29 Completed Unive rsity of VACCINE 12 YRS+, 00:00:00 [place] [facility] BIVALENT 0.5ML, IM, Branc h (MODERNA BOOSTER) SARS-COV-2 COVID-19 2022-08-29 Completed Unive rsity of VACCINE 12 YRS+, 00:00:00 [place] [facility] BIVALENT 0.5ML, IM, Branc h (MODERNA BOOSTER) SARS-COV-2 COVID-19 2022-08-29 Completed Unive rsity of VACCINE 12 YRS+, 00:00:00 [place] [facility] BIVALENT 0.5ML, IM, Branc h (MODERNA BOOSTER) SARS-COV-2 COVID-19 2022-08-29 Completed Unive rsity of VACCINE 12 YRS+, 00:00:00 [place] [facility] BIVALENT 0.5ML, IM, Branc h (MODERNA BOOSTER) SARS-COV-2 COVID-19 2022-08-29 Completed Unive rsity of VACCINE 12 YRS+, 00:00:00 [place] [facility] BIVALENT 0.5ML, IM, Branc h (MODERNA BOOSTER) SARS-COV-2 COVID-19 2022-08-29 Completed Unive rsity of VACCINE 12 YRS+, 00:00:00 [place] [facility] BIVALENT 0.5ML, IM, Branc h (MODERNA BOOSTER) SARS-COV-2 COVID-19 2022-08-29 Completed Unive rsity of VACCINE 12 YRS+, 00:00:00 [place] [facility] BIVALENT 0.5ML, IM, Branc h (MODERNA BOOSTER) SARS-COV-2 COVID-19 2022-08-29 Completed Unive rsity of VACCINE 12 YRS+, 00:00:00 [place] [facility] BIVALENT 0.5ML, IM, Branc h (MODERNA BOOSTER) SARS-COV-2 COVID-19 2022-08-29 Completed Unive rsity of VACCINE 12 YRS+, 00:00:00 [place] [facility] BIVALENT 0.5ML, IM, Branc h (MODERNA BOOSTER) SARS-COV-2 COVID-19 2022-08-29 Completed Unive rsity of VACCINE 12 YRS+, 00:00:00 [place] [facility] BIVALENT 0.5ML, IM, Branc h (MODERNA BOOSTER) SARS-COV-2 COVID-19 2022-08-29 Completed Unive rsity of VACCINE 12 YRS+, 00:00:00 [place] [facility] BIVALENT 0.5ML, IM, Branc h (MODERNA BOOSTER) Influenza High Dose 2019-09-16 Completed [facility]ive rsity of 00:00:00 [facility] Zoster Vaccine 2019-09-16 Completed [facility] of Recombinant 00:00:00 [facility] Influenza High Dose 2019-09-16 Completed Unive rsity of 00:00:00 [facility] Zoster Vaccine 2019-09-16 Completed [facility] Recombinant 00:00:00 [facility] Influenza High Dose 2019-09-16 Completed Unive rsity of 00:00:00 [facility] Zoster Vaccine 2019-09-16 Completed [facility] Recombinant 00:00:00 [facility] Influenza High Dose 2019-09-16 Completed Unive rsity of 00:00:00 [facility] Zoster Vaccine 2019-09-16 Completed [facility] Recombinant 00:00:00 [facility] Influenza High Dose 2019-09-16 Completed [facility]ive rsity of 00:00:00 [facility] Zoster Vaccine 2019-09-16 Completed [facility] Recombinant 00:00:00 [facility] Influenza High Dose 2019-09-16 Completed [facility]ive rsity of 00:00:00 [facility] Zoster Vaccine 2019-09-16 Completed [facility] Recombinant 00:00:00 [facility] Influenza High Dose 2019-09-16 Completed [facility]ive rsity of 00:00:00 [facility] Zoster Vaccine 2019-09-16 Completed [facility] Recombinant 00:00:00 [facility] Influenza High Dose 2019-09-16 Completed Unive rsity of 00:00:00 [facility] Zoster Vaccine 2019-09-16 Completed [facility] Recombinant 00:00:00 [facility] Influenza High Dose 2019-09-16 Completed Unive rsity of 00:00:00 [facility] Zoster Vaccine 2019-09-16 Completed [facility] Recombinant 00:00:00 [facility] Influenza High Dose 2019-09-16 Completed Unive rsity of 00:00:00 [facility] Zoster Vaccine 2019-09-16 Completed [facility] Recombinant 00:00:00 [facility] Influenza High Dose 2019-09-16 Completed [facility]ive rsity of 00:00:00 [facility] Zoster Vaccine 2019-09-16 Completed [facility] Recombinant 00:00:00 [facility] Influenza High Dose 2019-09-16 Completed Unive rsity of 00:00:00 [facility] Zoster Vaccine 2019-09-16 Completed [facility] Recombinant 00:00:00 [facility] Influenza High Dose 2019-09-16 Completed [facility]ive rsity of 00:00:00 [facility] Zoster Vaccine 2019-09-16 Completed [facility] Recombinant 00:00:00 [facility] Influenza High Dose 2019-09-16 Completed Unive rsity of 00:00:00 [facility] Zoster Vaccine 2019-09-16 Completed [facility] Recombinant 00:00:00 [facility] Influenza High Dose 2019-09-16 Completed Unive rsity of 00:00:00 [facility] Zoster Vaccine 2019-09-16 Completed [facility] Recombinant 00:00:00 [facility] Influenza High Dose 2019-09-16 Completed Unive rsity of 00:00:00 [facility] Zoster Vaccine 2019-09-16 Completed [facility] Recombinant 00:00:00 [facility] Influenza High Dose 2019-09-16 Completed Unive rsity of 00:00:00 [facility] Zoster Vaccine 2019-09-16 Completed [facility] Recombinant 00:00:00 [facility] Influenza High Dose 2019-09-16 Completed Unive rsity of 00:00:00 [facility] Zoster Vaccine 2019-09-16 Completed [facility] Recombinant 00:00:00 [facility] Influenza High Dose 2019-09-16 Completed Unive rsity of 00:00:00 [facility] Zoster Vaccine 2019-09-16 Completed [facility] Recombinant 00:00:00 [facility] Influenza High Dose 2019-09-16 Completed Unive rsity of 00:00:00 [facility] Zoster Vaccine 2019-09-16 Completed [facility] Recombinant 00:00:00 [facility] Influenza High Dose 2019-09-16 Completed Unive rsity of 00:00:00 [facility] Zoster Vaccine 2019-09-16 Completed [facility] Recombinant 00:00:00 [facility] Influenza High Dose 2019-09-16 Completed Unive rsity of 00:00:00 [facility] Zoster Vaccine 2019-09-16 Completed [facility] Recombinant 00:00:00 [facility] Influenza High Dose 2019-09-16 Completed Unive rsity of 00:00:00 [facility] Zoster Vaccine 2019-09-16 Completed [facility] Recombinant 00:00:00 [facility] Influenza High Dose 2019-09-16 Completed Unive rsity of 00:00:00 [facility] Zoster Vaccine 2019-09-16 Completed [facility] Recombinant 00:00:00 [facility] Influenza High Dose 2019-09-16 Completed Unive rsity of 00:00:00 [facility] Zoster Vaccine 2019-09-16 Completed [facility] Recombinant 00:00:00 [facility] Influenza High Dose 2019-09-16 Completed Unive rsity of 00:00:00 [facility] Zoster Vaccine 2019-09-16 Completed [facility] of Recombinant 00:00:00 [facility] Influenza High Dose 2019-09-16 Completed Unive rsity of 00:00:00 [facility] Zoster Vaccine 2019-09-16 Completed [facility] Recombinant 00:00:00 [facility] Pneumococcal 13 2017-08-21 Completed Universit y of Conjugate, PCV13 00:00:00 [place] [facility] (Prevnar 13) Branch Pneumococcal 13 2017-08-21 Completed Universit y of Conjugate, PCV13 00:00:00 [place] [facility] (Prevnar 13) Branch Pneumococcal 13 2017-08-21 Completed Universit y of Conjugate, PCV13 00:00:00 [place] [facility] (Prevnar 13) Branch Pneumococcal 13 2017-08-21 Completed Universit y of Conjugate, PCV13 00:00:00 [place] [facility] (Prevnar 13) Branch Pneumococcal 13 2017-08-21 Completed Universit y of Conjugate, PCV13 00:00:00 [place] [facility] (Prevnar 13) Branch Pneumococcal 13 2017-08-21 Completed Universit y of Conjugate, PCV13 00:00:00 [place] [facility] (Prevnar 13) Branch Pneumococcal 13 2017-08-21 Completed Universit y of Conjugate, PCV13 00:00:00 [place] [facility] (Prevnar 13) Branch Pneumococcal 13 2017-08-21 Completed Universit y of Conjugate, PCV13 00:00:00 [place] [facility] (Prevnar 13) Branch Pneumococcal 13 2017-08-21 Completed Universit y of Conjugate, PCV13 00:00:00 [place] [facility] (Prevnar 13) Branch Pneumococcal 13 2017-08-21 Completed Universit y of Conjugate, PCV13 00:00:00 [place] [facility] (Prevnar 13) Branch Pneumococcal 13 2017-08-21 Completed Universit y of Conjugate, PCV13 00:00:00 [place] [facility] (Prevnar 13) Branch Pneumococcal 13 2017-08-21 Completed Universit y of Conjugate, PCV13 00:00:00 [place] [facility] (Prevnar 13) Branch Pneumococcal 13 2017-08-21 Completed Universit y of Conjugate, PCV13 00:00:00 [place] [facility] (Prevnar 13) Branch Pneumococcal 13 2017-08-21 Completed Universit y of Conjugate, PCV13 00:00:00 [place] [facility] (Prevnar 13) Branch Pneumococcal 13 2017-08-21 Completed Universit y of Conjugate, PCV13 00:00:00 [place] [facility] (Prevnar 13) Branch Pneumococcal 13 2017-08-21 Completed Universit y of Conjugate, PCV13 00:00:00 [place] [facility] (Prevnar 13) Branch Pneumococcal 13 2017-08-21 Completed Universit y of Conjugate, PCV13 00:00:00 [place] [facility] (Prevnar 13) Branch Pneumococcal 13 2017-08-21 Completed Universit y of Conjugate, PCV13 00:00:00 [place] [facility] (Prevnar 13) Branch Pneumococcal 13 2017-08-21 Completed Universit y of Conjugate, PCV13 00:00:00 [place] [facility] (Prevnar 13) Branch Pneumococcal 13 2017-08-21 Completed Universit y of Conjugate, PCV13 00:00:00 [place] [facility] (Prevnar 13) Branch Pneumococcal 13 2017-08-21 Completed Universit y of Conjugate, PCV13 00:00:00 [place] [facility] (Prevnar 13) Branch Pneumococcal 13 2017-08-21 Completed Universit y of Conjugate, PCV13 00:00:00 [place] [facility] (Prevnar 13) Branch Pneumococcal 13 2017-08-21 Completed Universit y of Conjugate, PCV13 00:00:00 [place] [facility] (Prevnar 13) Branch Pneumococcal 13 2017-08-21 Completed Universit y of Conjugate, PCV13 00:00:00 [place] [facility] (Prevnar 13) Branch Pneumococcal 13 2017-08-21 Completed Universit y of Conjugate, PCV13 00:00:00 [place] [facility] (Prevnar 13) Branch Pneumococcal 13 2017-08-21 Completed Universit y of Conjugate, PCV13 00:00:00 [place] [facility] (Prevnar 13) Branch Pneumococcal 13 2017-08-21 Completed Universit y of Conjugate, PCV13 00:00:00 [place] [facility] (Prevnar 13) Branch Pneumococcal 13 2017-07-28 Completed Universit y of Conjugate, PCV13 00:00:00 [place] [facility] (Prevnar 13) Branch Pneumococcal 13 2017-07-28 Completed Universit y of Conjugate, PCV13 00:00:00 [place] [facility] (Prevnar 13) Branch Pneumococcal 13 2017-07-28 Completed Universit y of Conjugate, PCV13 00:00:00 [place] [facility] (Prevnar 13) Branch Pneumococcal 13 2017-07-28 Completed Universit y of Conjugate, PCV13 00:00:00 [place] [facility] (Prevnar 13) Branch Pneumococcal 13 2017-07-28 Completed Universit y of Conjugate, PCV13 00:00:00 [place] [facility] (Prevnar 13) Branch Pneumococcal 13 2017-07-28 Completed Universit y of Conjugate, PCV13 00:00:00 [place] [facility] (Prevnar 13) Branch Pneumococcal 13 2017-07-28 Completed Universit y of Conjugate, PCV13 00:00:00 [place] [facility] (Prevnar 13) Branch Pneumococcal 13 2017-07-28 Completed Universit y of Conjugate, PCV13 00:00:00 [place] [facility] (Prevnar 13) Branch Pneumococcal 13 2017-07-28 Completed Universit y of Conjugate, PCV13 00:00:00 [place] [facility] (Prevnar 13) Branch Pneumococcal 13 2017-07-28 Completed Universit y of Conjugate, PCV13 00:00:00 [place] [facility] (Prevnar 13) Branch Pneumococcal 13 2017-07-28 Completed Universit y of Conjugate, PCV13 00:00:00 [place] [facility] (Prevnar 13) Branch Pneumococcal 13 2017-07-28 Completed Universit y of Conjugate, PCV13 00:00:00 [place] [facility] (Prevnar 13) Branch Pneumococcal 13 2017-07-28 Completed Universit y of Conjugate, PCV13 00:00:00 [place] [facility] (Prevnar 13) Branch Pneumococcal 13 2017-07-28 Completed Universit y of Conjugate, PCV13 00:00:00 [place] [facility] (Prevnar 13) Branch Pneumococcal 13 2017-07-28 Completed Universit y of Conjugate, PCV13 00:00:00 [place] [facility] (Prevnar 13) Branch Pneumococcal 13 2017-07-28 Completed Universit y of Conjugate, PCV13 00:00:00 [place] [facility] (Prevnar 13) Branch Pneumococcal 13 2017-07-28 Completed Universit y of Conjugate, PCV13 00:00:00 [place] [facility] (Prevnar 13) Branch Pneumococcal 13 2017-07-28 Completed Universit y of Conjugate, PCV13 00:00:00 [place] [facility] (Prevnar 13) Branch Pneumococcal 13 2017-07-28 Completed Universit y of Conjugate, PCV13 00:00:00 [place] [facility] (Prevnar 13) Branch Pneumococcal 13 2017-07-28 Completed Universit y of Conjugate, PCV13 00:00:00 [place] [facility] (Prevnar 13) Branch Pneumococcal 13 2017-07-28 Completed Universit y of Conjugate, PCV13 00:00:00 [place] [facility] (Prevnar 13) Branch Pneumococcal 13 2017-07-28 Completed Universit y of Conjugate, PCV13 00:00:00 [place] [facility] (Prevnar 13) Branch Pneumococcal 13 2017-07-28 Completed Universit y of Conjugate, PCV13 00:00:00 [place] [facility] (Prevnar 13) [facility] Pneumococcal 13 2017-07-28 Completed Universit y of Conjugate, PCV13 00:00:00 [place] [facility] (Prevnar 13) Branch Pneumococcal 13 2017-07-28 Completed Universit y of Conjugate, PCV13 00:00:00 [place] [facility] (Prevnar 13) Branch Pneumococcal 13 2017-07-28 Completed Universit y of Conjugate, PCV13 00:00:00 [place] [facility] (Prevnar 13) Branch Pneumococcal 13 2017-07-28 Completed Universit y of Conjugate, PCV13 00:00:00 [facility] dical (Prevnar 13) Branch Vital Signs Vital Name Observation Time Observation Value Comments Source Systolic blood 2023-02-25 19:26:00 127 mm[Hg] Univer [facility]ity of [facility] Diastolic blood 2023-02-25 19:26:00 70 mm[Hg] Unive rsity of [facility] Heart rate 2023-02-25 19:26:00 107 /min [facility] Body temperature 2023-02-25 19:26:00 36.83 Yuni [facility] Respiratory rate 2023-02-25 19:26:00 18 /min [facility] Body height 2023-02-25 19:26:00 172.7 cm [facility] Body weight 2023-02-25 19:26:00 90.266 kg [facility] BMI 2023-02-25 19:26:00 30.26 kg/m2 [facility] Systolic blood 2023-02-06 15:15:00 112 mm[Hg] Univer [facility]ity of [facility] Diastolic blood 2023-02-06 15:15:00 71 mm[Hg] Unive rsity of [facility] Heart rate 2023-02-06 15:15:00 100 /min [facility] Body temperature 2023-02-06 15:15:00 36.28 [facility] 2023-02-06 15:15:00 16 /min [facility] Body height 2023-02-06 15:15:00 172.7 cm [facility] Body weight 2023-02-06 15:15:00 91.627 kg [facility] BMI 2023-02-06 15:15:00 30.71 kg/m2 [facility] Oxygen saturation in 2023-02-06 15:15:00 97 /min University of Arterial blood by [facility] Pulse oximetry Branch Systolic blood 2023-01-10 23:16:00 111 mm[Hg] Univer sity of [facility] Diastolic blood 2023-01-10 23:16:00 63 mm[Hg] Unive rsity of [facility] Heart rate 2023-01-10 23:16:00 78 /min [facility] Body temperature 2023-01-10 23:16:00 36.39 Yuni Univ ers[facility] Respiratory rate 2023-01-10 23:16:00 20 /min Univ ersity [facility] Body height 2023-01-10 23:16:00 172.7 cm [facility] Body weight 2023-01-10 23:16:00 90.493 kg [facility] [place] [facility] BMI 2023-01-10 23:16:00 30.33 kg/m2 [facility] Oxygen saturation in 2023-01-10 23:16:00 96 /min University of Arterial blood by [facility] Pulse oximetry Branch Systolic blood 2022-08-29 14:46:00 137 mm[Hg] Univer sity of [facility] Diastolic blood 2022-08-29 14:46:00 83 mm[Hg] Unive rsity of [facility] Heart rate 2022-08-29 14:46:00 92 /min [facility] [place] [facility] Body temperature 2022-08-29 14:46:00 36.61 Yuni Univ ers[facility] Body height 2022-08-29 14:46:00 175.3 cm [facility] [place] [facility] Body weight 2022-08-29 14:46:00 93.396 kg [facility] [place] [facility] BMI 2022-08-29 14:46:00 30.41 kg/m2 [facility] Systolic blood 2022-07-27 02:30:00 151 mm[Hg] Univer [facility]ity of [facility] [place] [facility] Diastolic blood 2022-07-27 02:30:00 60 mm[Hg] Unive rsity of [facility] [place] [facility] Heart rate 2022-07-27 02:30:00 76 /min [facility] [place] [facility] Body temperature 2022-07-27 02:30:00 36.89 Yuni [facility] [place] [facility] Respiratory rate 2022-07-27 02:30:00 16 /min Univ [facility] [place] [facility] Oxygen saturation in 2022-07-27 02:30:00 97 /min University of Arterial blood by [facility] Pulse oximetry Branch Body weight 2022-07-26 23:23:00 92.08 kg [facility] [place] [facility] BMI 2022-07-26 23:23:00 30.87 kg/m2 [facility] [place] [facility] Systolic blood 2022-06-27 14:26:00 125 mm[Hg] Univer sity of [facility] [place] [facility] Diastolic blood 2022-06-27 14:26:00 75 mm[Hg] Unive rsity of [facility] [place] [facility] Heart rate 2022-06-27 14:26:00 102 /min [facility] [place] [facility] Body temperature 2022-06-27 14:26:00 36.56 Yuni [facility] [place] [facility] Respiratory rate 2022-06-27 14:26:00 18 /min Univ ers[facility] [place] [facility] Body height 2022-06-27 14:26:00 172.7 cm [facility] [place] [facility] Body weight 2022-06-27 14:26:00 92.08 kg [facility] [place] [facility] BMI 2022-06-27 14:26:00 30.87 kg/m2 [facility] [place] [facility] Oxygen saturation in 2022-06-27 14:26:00 99 /min University of Arterial blood by [facility] Pulse oximetry Branch Systolic (mm Hg) 2022-02-13 16:45:00 Yariel Medina Diastolic (mm Hg) 2022-02-13 16:45:00 Mem orimiranda Adam Heart Rate 2022-02-13 16:45:00 [facility] Respitory Rate 2022-02-13 16:45:00 Memori al [facility] Height 2022-02-13 16:45:00 167.64 cm [facility] Weight 2022-02-13 16:45:00 [facility] BMI Calculated 2022-02-13 16:45:00 [facility] Systolic (mm Hg) 2021-10-16 16:45:00 Yariel rial Adam Diastolic (mm Hg) 2021-10-16 16:45:00 Mem orial Adam Heart Rate 2021-10-16 16:45:00 [facility] Respitory Rate 2021-10-16 16:45:00 [facility] Height 2021-10-16 16:45:00 167.64 cm [facility] Weight 2021-10-16 16:45:00 [facility] BMI Calculated 2021-10-16 16:45:00 [facility] Systolic (mm Hg) 2021-09-18 21:13:00 Yariel rial Maxwell Diastolic (mm Hg) 2021-09-18 21:13:00 Mem orial Adam Heart Rate 2021-09-18 21:13:00 [facility] Respitory Rate 2021-09-18 21:13:00 [facility] Height 2021-09-18 21:13:00 162.56 cm [facility] Weight 2021-09-18 21:13:00 [facility] BMI Calculated 2021-09-18 21:13:00 [facility] Systolic (mm Hg) 2021-09-18 20:58:00 Yariel rial Adam Diastolic (mm Hg) 2021-09-18 20:58:00 Mem orial Adam Heart Rate 2021-09-18 20:58:00 [facility] Respitory Rate 2021-09-18 20:58:00 Memori al Adam Height 2021-09-18 20:58:00 162.56 cm [facility] Weight 2021-09-18 20:58:00 [facility] BMI Calculated 2021-09-18 20:58:00 Memori al Adam Systolic (mm Hg) 2021-08-15 20:09:00 Yariel rial Maxwell Diastolic (mm Hg) 2021-08-15 20:09:00 Mem orial Adam Heart Rate 2021-08-15 20:09:00 [facility] Respitory Rate 2021-08-15 20:09:00 Memori al Adam Height 2021-08-15 20:09:00 165.1 cm [facility] Weight 2021-08-15 20:09:00 [facility] BMI Calculated 2021-08-15 20:09:00 [facility] Diastolic (mm Hg) 2013-07-22 13:00:00 Mem orial Maxwell Systolic (mm Hg) 2013-07-22 13:00:00 Yariel rial Maxwell Respitory Rate 2013-07-22 13:00:00 [facility] Heart Rate 2013-07-22 13:00:00 [facility] Temperature Oral (F) 2013-07-22 13:00:00 97.4 F [facility] Diastolic (mm Hg) 2013-07-22 10:07:00 Mem orial Maxwell Heart Rate 2013-07-22 10:07:00 [facility] Respitory Rate 2013-07-22 10:07:00 [facility] Systolic (mm Hg) 2013-07-22 10:07:00 Yariel rial Adam Temperature Oral (F) 2013-07-22 10:07:00 97.9 F [facility] Heart Rate 2013-07-22 05:00:00 [facility] Temperature Oral (F) 2013-07-22 05:00:00 97.5 F [facility] Diastolic (mm Hg) 2013-07-22 05:00:00 Mem orial Maxwell Systolic (mm Hg) 2013-07-22 05:00:00 Yariel rial Adam Respitory Rate 2013-07-22 05:00:00 Memori al [facility] Weight 2013-07-14 17:54:00 [facility] Height 2013-07-14 17:54:00 175.26 cm [facility] Procedures Procedure Date / Time Performing Clinician Source Performed POCT URINALYSIS W/O 2023-02-25 19:41:00 Bishnu Wright [facility] SPECIFIC GRAVITY Medical Branch PATIENT QUESTIONNAIRE 2023-02-25 05:01:00 Doctor Unassigned, [facility] [place] [facility] EXTERNAL PROVIDER RECORDS 2023-02-13 05:01:00 Doctor Unassigned, [facility] [place] [facility] XR CHEST 2 VW 2023-01-10 23:42:00 Britt Castro [facility] SARS-COV-2 COVID-19 2022-08-29 15:43:55 Spike Tapia [facility] VACCINE 12 YRS+, BIVALENT Medica l Branch 0.5ML, IM (MODERNA BOOSTER) ASSIGNMENT OF BENEFITS 2022-08-29 14:24:33 Doctor Unassigned, [facility] [place] [facility] [place] XR CHEST 1 VW 2022-07-27 00:50:00 Quinton Wilson [facility] COMP. METABOLIC PANEL 2022-07-27 00:36:00 Quinton Wilson [facility] ([id number]) Medical Branch CBC WITH DIFF 2022-07-27 00:36:00 Quinton Wilson [facility] N-TERMINAL PRO-BNP 2022-07-27 00:36:00 Quinton Wilson [facility] COVID-19 (ID NOW RAPID 2022-07-27 00:36:00 Quinton Wilson [facility] TESTING) Medical Branch NOTICE OF PRIVACY 2022-07-26 23:06:52 Doctor Unassigned, [facility] PRACTICES [place] [facility] [place] CONSENT/REFUSAL FOR 2022-07-26 23:06:32 Doctor Unatemitope, [facility] DIAGNOSIS AND TREATMENT [place] [facility] [place] Gallbladder operation [facility] Abdominal hysterectomy [facility] Adam Knee replacement [facility] Slava n [facility] extraction and insertion of intraocular lens [facility] Cervical discectomy [facility] Abdominal hysterectomy [facility] Appendectomy [facility] Adam CEIOL - Cataract [facility] Slava n extraction and insertion of intraocular lens Cholecystectomy [facility] Adam Knee replacement [facility] Slava n Encounters Start End Encounter Admission Attending Care Care Encounter Source Date/Time Date/Time Type Type Clinicians Facility Department ID 2023-02-25 2023-02-25 Outpatient R BISHNU WRIGHT [facility] [id number] [facility] 14:30:00 15:16:11 BISHNU WRIGHT [facility] 2023-02-25 2023-02-25 Office Kyle [facility] 1.2.840.[id number] [facility] 14:30:00 15:16:11 Visit Bishnu ESQUEDA 350.1.13.10 i ty [place] [id number] [place] [id number] [facility] 2023-02-25 2023-02-25 Orders Doctor PACO 1.2.840.114 [id number] Univers 00:00:00 00:00:00 Only Unassigned, DANUTA 350.1.13.10 ity of [place] [facility] 4.2.7.2.686 Daniel as [phone] [address] 2023-02-13 2023-02-13 Orders Doctor PACO 1.2.840.114 [id number] Univers 00:00:00 00:00:00 Only Unassigned, DANUTA 350.1.13.10 ity of [place] [facility] 4.2.7.2.686 Daniel as [phone] [address] 2023-02-12 2023-02-12 Telephone PACO Tapia 1.2.886.482 [id number] Univers 00:00:00 00:00:00 Spike DANUTA 350.1.13.10 it y of HOSPITAL 4.2.7.2.686 [place] as [phone] [address] 2023-02-08 2023-02-08 Telephone HANNAH Tapia 1.2.840.114 [id number] Univers 00:00:00 00:00:00 [facility] 350.1.13.10 i ty of [place] [id number] [facility] [address] [place] 2023-02-07 2023-02-07 Telephone PACO Tapia 1.2.554.999 [id number] Univers 00:00:00 00:00:00 Spike DANUTA 350.1.13.10 it y of HOSPITAL 4.2.7.2.686 [place] as [phone] [address] 2023-02-06 2023-02-06 Supervisor Machine Workers [facility]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 1.2.840.114 [id number] Univers 11:30:00 11:45:00 Visit José Miguel Bang HEALTH 350.1.13.10 ity of [place] [phone] [facility] [address] [place] 2023-02-06 2023-02-06 Outpatient R BETI [facility] [id number] Univers 10:00:00 11:09:24 JOSÉ MIGUEL xiong of [facility] 2023-02-06 2023-02-06 Office Spike Tapia 1.2.840.114 [id number] Univers 10:00:00 11:09:24 Visit José Miguel Bang HEALTH 350.1.13.10 ity of [place] [id number] [facility] [address] [place] 2023-01-11 2023-01-11 Telephone Pcp, [facility] 1.2.045.905 [id number] Univers 00:00:00 00:00:00 Patient HEALTH 350.1.13.10 it y of Does Not [facility] [place] ANDREA?BLEA [phone] [facility] [address] [place] MEDICAL OFFICE BUILDING 2023-01-10 2023-01-10 [facility] 1.2.840.114 [id number] Univers 18:26:44 23:59:00 Encounter Britt Wilder [facility] 350.1.13.10 ity of [facility] 4.2.7.2.686 Daniel as ANDREA?BLEA [id number] [facility] [address] [place] MEDICAL OFFICE [facility] 2023-01-10 2023-01-10 Outpatient [facility] [id number] Univers 18:00:00 18:34:50 BRITT xiong o f [facility] 2023-01-10 2023-01-10 Urgent Britt Castro [facility] 1.2.840 .114 [id number] Univers 18:00:00 18:34:50 Care Unknown, Attending HEALTH 350.1.13.10 ity of Agusto Anna 4.2.7.2.686 [place] ANDREA?BLEA [id number] [facility] [address] [place] MEDICAL OFFICE BUILDING 2022-12-26 2022-12-26 HANNAH Kaba 1.2.572.538 [id number] Univers 00:00:00 00:00:00 Spike [facility] 350.1.13.10 i ty of CL[place] [id number] [facility] [address] [place] 2022-08-29 2022-08-29 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 350.1.13.10 ity of [place] [id number] [facility] [address] [place] 2022-08-29 2022-08-29 Outpatient R BRYAN [facility] [id number] Univers 10:00:00 11:04:18 [facility] 2022-08-29 2022-08-29 [facility] 1.2.840.114 [id number] Univers 10:00:00 11:04:[address] [facility] 350.1.13.10 ity of [place] [id number] [place] [address] [place] 2022-08-29 2022-08-29 Orders Doctor PACO 1.2.840.114 [id number] Univers 00:00:00 00:00:00 Only Unassigned, DANUTA 350.1.13.10 ity of [place] [facility] 4.2.7.2.686 Daniel as [id number] [facility] 009 Branch 2022-07-26 2022-07-26 Emergency [facility] [id number] Univers 18:25:00 21:34:00 QUINTON ity [facility] 2022-07-26 2022-07-26 Emergency [facility] 1.2.550.980 [id number] Univers 18:25:00 21:34:00 Quinton S YIN 350.1.13.10 i ty of [place] 4.2.7.2.[place] C[place] [id number] [facility] [address] [place] 2022-07-26 2022-07-26 Orders Doctor PACO 1.2.840.114 [id number] Univers 00:00:00 00:00:00 Only Unassigned, DANUTA 350.1.13.10 ity of [place] [facility] 4.2.7.2.686 Daniel as [phone] [facility] 009 Branch 2022-06-28 2022-06-28 Telephone ROXANE TapiaIT 1.2.840.114 [id number] Univers 00:00:00 00:00:00 [facility] 350.1.13.10 i ty of [place] 4[place] [id number] [facility] [address] [place] 2022-06-27 2022-06-27 Supervisor Machine Workers [facility]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 2022-06-27 2022-06-27 Outpatient R BETI [facility] [id number] Univers 10:00:00 10:00:00 [facility] 2022-06-07 2022-06-09 Outside nullFlavo MNA [id number] Memoria 16:52:42 04:59:59 Medical r Neurology 01 l Records Clark Medina 2022-06-07 2022-06-09 Outside nullFlavo MNA [id number] Memoria 16:52:42 04:59:59 Medical r Neurology 01 l Records Clark Fergusonann 2022-06-07 2022-06-08 Outpatient MHMISCHER MHMISCHER [id number] 11:52:42 23:59:59 01 2022-06-04 2022-06-04 Telephone HANNAH Tapia 1.2.840.114 [id number] Univers 00:00:00 00:00:00 Spike Y HEALTH 350.1.13.10 i ty of [place] [id number] [facility] 089 Branch 2022-05-31 2022-05-31 Telephone [facility] 1.2.278.193 [id number] Univers 00:00:00 00:00:00 Juan F C MULTISPEC 350.1.13.10 ity of [place].2.7.2.686 [place] [id number] [facility] AND MANAHAWKIN 044 Branch [facility] 2022-05-26 2022-05-26 Outpatient R [facility] [id number] Univers 13:35:00 14:24:34 TING [facility] 2022-05-26 2022-05-26 [facility]gent [facility] 1.2.840.114 [id number] Univers 13:35:00 14:24:34 Care Ting HEALTH 350.1.13.10 it y of [place] 4.2.7.2.686 Daniel as ANDREA?BLEA [id number] [address] MEDICAL OFFICE BUILDING 2022-04-11 2022-04-11 Transition JacksonKATHLEEN 1.2.840.114 [id number] Univers 00:00:00 00:00:00 of Care Sona SERRANO 350.1.13.10 [place] [id number] [facility] [address] Branch 2022-04-09 2022-04-10 Outpatient X JOSE CARLOS [facility] TERESA [id number] Univers 03:41:00 14:05:00 MICHAEL xiong [facility] 2022-04-09 2022-04-10 Emergency Michael Potter [facility] 1.2.840 .114 [id number] Univers 03:41:00 14:05:00 Rashad Delgado 350.1.13.10 ity of [place] 4.2.7.2.686 [facility] [id number] [place] 07[address] [place] 2022-04-06 2022-04-08 Outside nullFlavo MNA [id number] Memoria 13:28:33 04:59:59 Medical r Neurology 00 l Records Clark Medina 2022-04-06 2022-04-08 Outside nullFlavo MNA [id number] Memoria 13:28:33 04:59:59 Medical r Neurology 00 l Records Clark Fergusonann 2022-04-06 2022-04-07 Outpatient MHMISCHER MHMISCHER [id number] 08:28:33 23:59:59 00 2022-03-29 2022-03-29 Outpatient Ofelia YEPEZ [facility] [id number] Univers 18:40:00 19:04:43 [facility] 2022-03-29 2022-03-29 Urgent Agusto Anna [facility] 1.2.840.114 [id number] Univers 18:40:00 19:04:43 [facility] 350.1.13.10 [facility] 4.2.7.2.686 Daniel as ANDREA?BLEA [id number] [address] MEDICAL OFFICE BUILDING 2022-03-29 2022-03-29 Outpatient Ofelia YEPEZ [facility] [id number] Univers 18:40:00 18:40:00 [facility] 2022-03-27 2022-03-27 Ambulatory nullFlavo MNA [id number] Memoria 15:15:00 15:15:00 Pre-Reg r Neurology 06 l Marinette Adam 2022-03-27 2022-03-27 Ambulatory nullFlavo MNA [id number] Memoria 15:15:00 15:15:00 Pre-Reg r Neurology 06 l Clark Medina 2022-03-27 2022-03-27 Outpatient MHIE MHIE [id number] Memoria 10:15:00 10:15:00 06 l Adam 2022-03-27 2022-03-27 Outpatient REGGIE LySCHREHANA PAREDESSCHREHANA [id number] 10:15:00 10:15:00 Jorge Ivelisse Dodson 2022-02-13 2022-02-14 Outpatient nullFlavo MNA [id number] Memoria 16:30:00 04:59:59 r Neurology 05 roberto Medina 2022-02-13 2022-02-14 Outpatient nullFlavo MNA [id number] Memoria 16:30:00 04:59:59 r Neurology 05 roberto Medina 2022-02-13 2022-02-13 [id number] 11:30:00 23:59:59 Jorge 05 [place] 2022-02-13 2022-02-13 Outpatient MHIE MHIE [id number] Memoria 11:30:00 11:30:00 05 roberto Medina 2021-10-16 2021-10-17 Outpatient nullFlavo MNA [id number] Memoria 16:45:00 05:59:59 r Neurology 04 roberto Medina 2021-10-16 2021-10-17 Outpatient nullFlavo MNA [id number] Memoria 16:45:00 05:59:59 r Neurology 04 roberto Medina 2021-10-16 2021-10-16 Outpatient RENITA [facility]OHSCHER [facility] [id number] 10:45:00 23:59:59 Jorge 04 [place] 2021-10-16 2021-10-16 Outpatient MHIE MHIE [id number] Memoria 10:45:00 10:45:00 04 roberto Medina 2021-09-18 2021-09-19 Outpatient nullFlavo MNA [id number] Memoria 21:00:00 05:59:59 r Neurology 03 l Clark Medina 2021-09-18 2021-09-19 Outpatient nullFlavo MNA [id number] Memoria 21:00:00 05:59:59 r Neurology 03 roberto Fergusonann 2021-09-18 2021-09-18 Outpatient REGGIE LySCHER MISCHER [id number] 15:00:00 23:59:59 Jorge 03 West 2021-09-18 2021-09-18 Outpatient MHIE MHIE [id number] Memoria 15:00:00 15:00:00 03 roberto Medina 2021-08-15 2021-08-16 Outpatient nullFlavo MNA [id number] Memoria 20:00:00 04:59:59 r Neurology 02 roberto Medina 2021-08-15 2021-08-16 Outpatient nullFlavo MNA [id number] Memoria 20:00:00 04:59:59 r Neurology 02 l Clark Medina 2021-08-15 2021-08-15 Outpatient Edwinhunter [facility] [id number] 15:00:00 23:59:59 Jorge John Dodson 2021-08-15 2021-08-15 Outpatient MHIE MHIE [id number] Memoria 15:00:00 15:00:00 02 roberto Medina 2020-12-05 2020-12-05 Outpatient R ZULMA [facility] [id number] Univers 13:00:00 13:00:00 [facility] 2020-08-[facility] 2020-08-04 Outpatient R ZULMA [facility] [id number] Univers 13:00:00 13:00:00 SENDIL ity [facility] 2020-08-02 2020-08-02 Outpatient R [facility] [id number] Univers 10:00:00 10:00:00 ity [facility] 2020-05-12 2020-05-12 Outpatient R IRAM MANJARREZ [facility] [id number] Univers 11:40:00 11:40:00 IRAM MANJARREZ i ty of [facility] 2020-05-02 2020-05-02 Outpatient R [facility] [id number] Univers 10:00:00 10:00:00 ity [facility] 2020-03-29 2020-03-29 Outpatient R ZULMA [facility] [id number] Univers 11:00:00 11:00:00 [facility] 2020-02-11 2020-02-11 Outpatient R ZULMA [facility] [id number] Univers 09:30:00 09:30:00 [facility] 2020-02-05 2020-02-05 Outpatient R IRAM MANJARREZ [facility] [id number] Univers 11:40:00 11:40:00 IRAM MANJARREZ i [facility] 2019-12-31 2019-12-31 Outpatient Ofleia MAYA [facility] [id number] Univers 10:00:00 10:00:00 ROMA gersonjefry [facility] 2018-01-06 2018-01-06 Outpatient MHIE RENITAIE [id number] Memoria 13:00:00 13:00:00 01 roberto Medina 2018-01-06 2018-01-06 Outpatient MHIE RENITAIE [id number] Memoria 13:00:00 13:00:00 01 roberto Medina 2018-01-03 2018-01-03 Outpatient MHIE RENITAIE [id number] Memoria 11:00:00 11:00:00 00 roberto Medina 2018-01-03 2018-01-03 Outpatient RENITAIE RENITAIE [id number] Memoria 11:00:00 11:00:00 00 roberto Medina 2013-07-21 2013-07-22 Inpatient nullFlavo MH [id number] Memoria 05:27:00 10:40:00 ofelia More 01 roberto Medina 2013-07-21 2013-07-22 Inpatient nullFlavo MH [id number] Memoria 05:27:00 10:40:00 r Derik roberto Medina Results Test Description Test Time Test Comments Results Result Comments Source POCT URINALYSIS W/O SPECIFIC GRAVITY 2023-02-25 19:42:00 Test Item Value Reference Range Interpretation Comme nts POCT PH U (test code = 3254) 6 mg/dl 5-8 POCT U LEUK EST (test code = negative Negative - Negative 3263) POCT U NIT (test code = 3262) negative Negative - Negative POCT U PROT (test code = 3259) negative Negative - Negative POCT U GLU (test code = 3256) 100 Negative - Negative POCT U KETONE (test code = negative Negative - Negative 3258) POCT U BLD (test code = 3257) negative Negative - Negative ANNIKA (test code = ANNIKA) Per order PVR by bladder scan = 0 ml. Results reported to provider. [facility] SPECIFIC [id number] 19:42:00 Test Item Value Reference Range Interpretation Comments POCT PH U (test code 6 mg/dl 5-8 = 3254) POCT U LEUK EST negative Negative - Negative (test code = 3263) POCT U NIT (test negative Negative - Negative code = 3262) POCT U PROT (test negative Negative - Negative code = 3259) POCT U GLU (test 100 Negative - Negative code = 3256) POCT U KETONE (test negative Negative - Negative code = 3258) POCT U BLD (test negative Negative - Negative code = 3257) ANNIKA (test code = Per order PVR by ANNIKA) bladder scan = 0 ml. Results reported to provider. [facility]/O SPECIFIC [id number] 19:42:00 Test Item Value Reference Range Interpretation Comments POCT PH U (test code 6 mg/dl 5-8 = 3254) POCT U LEUK EST negative Negative - Negative (test code = 3263) POCT U NIT (test negative Negative - Negative code = 3262) POCT U PROT (test negative Negative - Negative code = 3259) POCT U GLU (test 100 Negative - Negative code = 3256) POCT U KETONE (test negative Negative - Negative code = 3258) POCT U BLD (test negative Negative - Negative code = 3257) ANNIKA (test code = Per order PVR by ANNIKA) bladder scan = 0 ml. Results reported to provider. [facility] [id number] 01:14:20 Test Item Value Reference Range Interpretation Comments NT-proBNP (test code 37 pg/mL See_Comment [Autom ated = [id number]) message] The system which generated this result transmitted reference range : <=450. The reference range was not used to interpret this result as normal/abnormal . ANNIKA (test code = ANNIKA) Biotin has been reported to cause a negative bias, interpret results relative to patient's use of biotin. Lab Interpretation Normal (test code = 02278-3) [facility] WITH [id number] 01:13:59 Test Item Value Reference Range Interpretation Comments WBC (test code = See_Comment [Automated 1590-2) message] The sy stem which generated this result transmitted reference range : 4.30 - 11.10 10*3/?L. The reference range was not used to interpret this result as normal/abnormal . RBC (test code = See_Comment [Automated 319-8) message] The sy stem which generated this result transmitted reference range : 3.93 - 5.25 10*6/?L. The reference range was not used to interpret this result as normal/abnormal . HGB (test code = 12.2 g/dL 11.6-15 718-7) HCT (test code = 39.2 % 35.7-45.2 4544-3) MCV (test code = 82.0 fL 80.6-95.5 787-2) MCH (test code = 25.5 pg 25.9-32.8 L 785-6) MCHC (test code = 31.1 g/dL 31.6-35.1 L 786-4) RDW-SD (test code = 44.3 fL 39-49.9 88098-1) RDW-CV (test code = 14.8 % 12-15.5 788-0) PLT (test code = See_Comment [Automated 777-3) message] The sy stem which generated this result transmitted reference range : 166 - 358 10*3/ ?L. The reference r clementina was not used to interpret this result as normal/abnormal . MPV (test code = 11.3 fL 9.5-12.9 06423-0) NRBC/100 WBC (test See_Comment [Automat ed code = 0449509772) message] The system which generated this result transmitted reference range : 0.0 - 10.0 /100 WBCs. The refer ence range was not u sed to interpret th is result as normal/abnormal . NRBC x10^3 (test code See_Comment [Auto mated = [id number]) message] The s ystem which generated this result transmitted reference range : 10*3/?L. The reference range was not used to interpret this result as normal/abnormal . GRAN MAT (NEUT) % 68.2 % (test code = 770-8) IMM GRAN % (test code 1.30 % = 6636515407) LYMPH % (test code = 22.3 % 736-9) MONO % (test code = 6.1 % 5905-5) EOS % (test code = 1.4 % 713-8) BASO % (test code = 0.7 % 706-2) GRAN MAT x10^3(ANC) 5.79 10*3/uL 1.88-7.09 (test code = 5563211780) IMM GRAN x10^3 (test 0.11 10*3/uL 0-0.06 H code = 9865158826) LYMPH x10^3 (test code 1.89 10*3/uL 1.32-3.29 = 731-0) MONO x10^3 (test code 0.52 10*3/uL 0.33-0.92 = 742-7) EOS x10^3 (test code = 0.12 10*3/uL 0.03-0.39 711-2) BASO x10^3 (test code 0.06 10*3/uL 0.01-0.07 = 704-7) Lab Interpretation Abnormal (test code = 03136-4) [facility]. METABOLIC PANEL (14327)2022-07-27 01:05:18 Test Item Value Reference Range Interpretation Comments NA (test code = 139 mmol/L 135-145 3685837802) K (test code = 5.1 mmol/L 3.5-5 H 2611633728) CL (test code = 101 mmol/L 98-108 7540483825) CO2 TOTAL (test code = 28 mmol/L 23-31 8302193169) AGAP (test code = 2-16 7334769109) BUN (test code = 23 mg/dL 7-23 7518197458) GLUCOSE (test code = 136 mg/dL 70-110 H 1191808495) CREATININE (test code = 0.77 mg/dL 0.5-1.04 1303040171) TOTAL BILI (test code = 0.6 mg/dL 0.1-1.2 4329253901) CALCIUM (test code = 10.4 mg/dL 8.6-10.6 6910757382) T PROTEIN (test code = 7.3 g/dL 6.3-8.2 5596030729) ALBUMIN (test code = 4.5 g/dL 3.5-5 2307156494) ALK PHOS (test code = 60 U/L 34-122 2532665344) ALTv (test code = 19 U/L 5-35 1742-6) AST(SGOT) (test code = 26 U/L 13-40 3923452985) eGFR (test code = mL/min/1.73m2 1661169733) ANNIKA (test code = ANNIKA) Association of Glomerular Filtration Rate (GFR) and Staging of Kidney Disease* + --+ --+ ------+| GFR (mL/min/1.73 m2) ?| With Kidney Damage ?| ?Without Kidney Damage+ --------+ --------+ +| ?>90 ?| ?Stage one ?| ? Normal ?+ ---+ ---+ -------+| ?60-89 ?| ?Stage two ?| ? Decreased GFR ? + --+ --+ ------+| ?30-59 ?| ?Stage three ?| ? Stage three ? + --+ --+ ------+| ?15-29 ?| ?Stage four ? | ? Stage four ?+ ---+ ---+ -------+| ?<15 (or dialysis) ? ?| ?Stage five ? | ? Stage five ?+ ---+ ---+ -------+ *Each stage assumes the associated GFR level has been in effect for at least three months. ?Stages 1 to 5, with or without kidney disease, indicate chronic kidney disease. Notes: Determination of stages one and two (with eGFR >59mL/min/1.73 m2) requires estimation of kidney damage for at least three months as defined by structural or functional abnormalities of the kidney, manifested by either:Pathological abnormalities or Markers of kidney damage (including abnormalities in the composition of the blood or urine or abnormalities in imaging tests). Lab Interpretation Abnormal (test code = 85721-3) [facility], COMPLETE, WITH FLEX 2019-02-23 14:06:00Reason for Exam:->Cervical radiculopathy acute Chronic bilateral low back pain with bilateral sciaticaFINAL REPORT Lumbar Spine - seven total images [...] a change with flexion-extension.No evidence of a compressio n deformity or displaced fracture. Discs:Multilevel degenerative changes, most notably severe at L1-2, L2-3, and L5-S1. Facets:Multilevel hypertrophic degenerative changes, most notably severe from L3-4 to L5-S1. Other:Scattered atherosclerotic vascular calcifications. IMPRESSION:1.No acute radiographic abnormality.2.Multilevel degenerative changes, most notably at L5- S1.3.Degenerative anterolisthesis of L4 on L5, without segmental instability. Signed: Silverio Higgins Verified Date/Time: 02/23/2019 14:06:43 RAD, SPINE, CERVICAL, COMPLETE, WITH [id number] 16:26:00Reason for Exam:->cervical radiculopathy, acute history of fusion of cervical spineFINAL REPORT Cervical Spine, 7 views including flexion, extension, and oblique views HISTORY: cervical radiculopathy, acute history of fusion of cervical spine COMPARISON: None available FINDINGS:Limited sensitivity for detection of subtle fractures and ligamentous abnormalities.Diffusely decreased mineralization of the osseous structures further limits bone detail.On the lateralview, the cervical spine is visualized from the [...] C7, no hardware loosening or failure. Signed: Silverio Higgins Verified Date/Time: 10/27/2018 16:26:17 POCT-GLUCOSE [id number] 09:24:00 Test Item Value Reference Range Interpretation Comments POC-GLUCOSE METER 160 mg/dL 70-110 H TESTED AT [facility] 6720 (ROSY) (test code = [place] 1538) [address] BUN AND [id number] 14:14:00 Test Item Value Reference Range Interpretation Comments BLOOD UREA NITROGEN 12 mg/dL 7-21 (BEAKER) (test code = 354) CREATININE (BEAKER) 0.74 mg/dL 0.57-1.25 (test code = 358) EGFR (BEAKER) (test mL/min/1.73 INSUFFIC IENT CLINICAL code = 1092) sq m DATA TO CALCULA TE ESTIMATED GFR. [id number] 14:12:00 Test Item Value Reference Range Interpretation Comments SODIUM (BEAKER) (test code = 381) 142 meq/L 136-145 POTASSIUM (BEAKER) (test code = 4.8 meq/L 3.5-5.1 379) CHLORIDE (BEAKER) (test code = 382) 106 meq/L 98-107 CO2 (BEAKER) (test code = 355) 27 meq/L 22-29 [id number] 14:12:00 Test Item Value Reference Range Interpretation Comments GLUCOSE RANDOM (BEAKER) (test code 123 mg/dL 70-105 H = 652) [id number] 13:28:00 Test Item Value Reference Range Interpretation Comments HEMOGLOBIN (BEAKER) (test code = 10.9 GM/DL 11.2-15.7 L 410) AFB CULTURE + [id number] 19:42:00 Test Item Value Reference Range Interpretation Comments CULTURE (BEAKER) (test No acid-fast bacilli code = 1095) isolated in 42 days AFB SMEAR (BEAKER) No acid fast bacilli (test code = 994) seen AFB CULTURE + [id number] 19:42:00 Test Item Value Reference Range Interpretation Comments CULTURE (BEAKER) (test No acid-fast bacilli code = 1095) isolated in 42 days AFB SMEAR (BEAKER) No acid fast bacilli (test code = 994) seen AFB CULTURE + [id number] 19:42:00 Test Item Value Reference Range Interpretation Comments CULTURE (BEAKER) (test No acid-fast bacilli code = 1095) isolated in 42 days AFB SMEAR (BEAKER) No acid fast bacilli (test code = 994) seen FUNGUS CULTURE + [id number] 07:50:00 Test Item Value Reference Range Interpretation Comments CULTURE (BEAKER) (test No fungus isolated in code = 1095) 28 days FUNGUS SMEAR (BEAKER) No fungi seen (test code = 1406) FUNGUS CULTURE + [id number] 07:50:00 Test Item Value Reference Range Interpretation Comments CULTURE (BEAKER) (test No fungus isolated in code = 1095) 28 days FUNGUS SMEAR (BEAKER) No fungi seen (test code = 1406) FUNGUS CULTURE + [id number] 07:50:00 Test Item Value Reference Range Interpretation Comments CULTURE (BEAKER) (test No fungus isolated in code = 1095) 28 days FUNGUS SMEAR (BEAKER) No fungi seen (test code = 1406) ANAEROBIC [id number] 17:16:00 Test Item Value Reference Range Interpretation Comments CULTURE (BEAKER) (test No anaerobes isolated code = 1095) ANAEROBIC [id number] 15:25:00 Test Item Value Reference Range Interpretation Comments CULTURE (BEAKER) (test No anaerobes isolated code = 1095) ANAEROBIC [id number] 15:25:00 Test Item Value Reference Range Interpretation Comments CULTURE (BEAKER) (test No anaerobes isolated code = 1095) BODY FLUID CULTURE + GRAM [id number] 16:23:00 Test Item Value Reference Range Interpretation Comments CULTURE (BEAKER) (test code = 1095) No growth Received in Aerobic BTA bottle only.BLOOD [id number] 11:00:00 Test Item Value Reference Range Interpretation Comments CULTURE (BEAKER) (test No growth in 5 days code = 1095) BLOOD [id number] 11:00:00 Test Item Value Reference Range Interpretation Comments CULTURE (BEAKER) (test No growth in 5 days code = 1095) ANAEROBIC [id number] 09:35:00 Test Item Value Reference Range Interpretation Comments CULTURE (BEAKER) (test No anaerobes isolated code = 1095) Received in Anaerobic BTA bottle only.SURGICALLY OBTAINED CULTURE + GRAM STAIN 2017-04-16 08:53:00 Test Item Value Reference Range Interpretation Comments CULTURE (BEAKER) (test code No growth = 1095) GRAM STAIN RESULT (BEAKER) 2+ WBCs (test code = 1123) GRAM STAIN RESULT (BEAKER) No organisms seen (test code = 36849) SURGICALLY OBTAINED CULTURE + GRAM [id number] 08:52:00 Test Item Value Reference Range Interpretation Comments CULTURE (BEAKER) (test code No growth = 1095) GRAM STAIN RESULT (BEAKER) 1+ WBCs (test code = 1123) GRAM STAIN RESULT (BEAKER) No organisms seen (test code = 03767) SURGICALLY OBTAINED CULTURE + GRAM [id number] 08:46:00 Test Item Value Reference Range Interpretation Comments CULTURE (BEAKER) (test code No growth = 1095) GRAM STAIN RESULT (BEAKER) 1+ WBCs (test code = 1123) GRAM STAIN RESULT (BEAKER) No organisms seen (test code = 05919) PERIPHERAL BLOOD SMEAR - PATHOLOGIST [id number] 12:29:00 Test Item Value Reference Range Interpretation Comments RBC MORPHOLOGY Hypochromasia (BEAKER) (test code = 2846) RBC MORPHOLOGY Anisocytosis (BEAKER) (test code = 38179) RBC MORPHOLOGY Poikilocytosis (BEAKER) (test code = 02964) RBC MORPHOLOGY Polychromasia (BEAKER) (test code = 22451) WBC MORPHOLOGY See comment (BEAKER) (test code = 2847) PLT MORPHOLOGY Unremarkable (BEAKER) (test code = 2848) PERIPHERAL SMR Hypochromic, normocytic REVIEW (BEAKER) anemia with mild (test code = 2640) anisopoikilocytosis with elliptocytes and spherocytes. Mild polychromasia. WBCs demonstrate rare myeloid precursors and lymphocytes with reactive/atypical forms. No blasts are identified. [id number] Luis Jalloh MD (electronic 112 (BEAKER) (test signature) code = 2849) POCT-GLUCOSE [id number] 12:06:00 Test Item Value Reference Range Interpretation Comments POC-GLUCOSE METER 95 mg/dL 70-110 TESTED AT [facility] 6720 (BEAKER) (test code = LEIDA Gilbert [facility] [address] 1538) POCT-GLUCOSE [id number] 08:47:00 Test Item Value Reference Range Interpretation Comments POC-GLUCOSE METER 196 mg/dL 70-110 H TESTED AT [facility] 67[address] (BEAKER) (test code = [facility] Ofelia [facility] 1538) [address] BASIC METABOLIC [id number] 05:15:00 Test Item Value Reference Range Interpretation Comments SODIUM (BEAKER) 138 meq/L 136-145 (test code = 381) POTASSIUM (BEAKER) 3.8 meq/L 3.5-5.1 (test code = 379) CHLORIDE (BEAKER) 105 meq/L 98-107 (test code = 382) CO2 (BEAKER) (test 25 meq/L 22-29 code = 355) BLOOD UREA NITROGEN 12 mg/dL 7-21 (BEAKER) (test code = 354) CREATININE (BEAKER) 0.68 mg/dL 0.57-1.25 (test code = 358) GLUCOSE RANDOM 131 mg/dL 70-105 H (BEAKER) (test code = 652) CALCIUM (BEAKER) 8.6 mg/dL 8.4-10.2 (test code = 697) EGFR (BEAKER) (test mL/min/1.73 INSUFFIC IENT CLINICAL code = 1092) sq m DATA TO CALCULA TE ESTIMATED GFR. CBC W/PLT COUNT & AUTO [id number] 04:48:00 Test Item Value Reference Range Interpretation Comments WHITE BLOOD CELL COUNT (BEAKER) 5.5 K/ L 4.0-10.0 (test code = 775) RED BLOOD CELL COUNT (BEAKER) 3.49 M/ L 4.00-5.00 L (test code = 761) HEMOGLOBIN (BEAKER) (test code = 9.1 GM/DL 12.0-15.0 L 410) HEMATOCRIT (BEAKER) (test code = 28.5 % 36.0-45.0 L 411) MEAN CORPUSCULAR VOLUME (BEAKER) 81.8 fL 82.0-99.0 L (test code = 753) MEAN CORPUSCULAR HEMOGLOBIN 26.1 pg 27.0-33.0 L (BEAKER) (test code = 751) MEAN CORPUSCULAR HEMOGLOBIN CONC 31.9 GM/DL 32.0-36.0 L (BEAKER) (test code = 752) RED CELL DISTRIBUTION WIDTH 15.4 % 10.3-14.2 H (BEAKER) (test code = 412) PLATELET COUNT (BEAKER) (test 167 K/CU MM 150-430 code = 756) MEAN PLATELET VOLUME (BEAKER) 8.2 fL 6.5-10.5 (test code = 754) NUCLEATED RED BLOOD CELLS 0 /100 WBC 0-0 (BEAKER) (test code = 413) NEUTROPHILS RELATIVE PERCENT 69 % (BEAKER) (test code = 429) LYMPHOCYTES RELATIVE PERCENT 21 % (BEAKER) (test code = 430) MONOCYTES RELATIVE PERCENT 7 % (BEAKER) (test code = 431) EOSINOPHILS RELATIVE PERCENT 2 % (BEAKER) (test code = 432) BASOPHILS RELATIVE PERCENT 0 % (BEAKER) (test code = 437) NEUTROPHILS ABSOLUTE COUNT 3.75 K/ L 1.80-8.00 (BEAKER) (test code = 670) LYMPHOCYTES ABSOLUTE COUNT 1.17 K/ L 1.48-4.50 L (BEAKER) (test code = 414) MONOCYTES ABSOLUTE COUNT (BEAKER) 0.40 K/ L 0.00-1.30 (test code = 415) EOSINOPHILS ABSOLUTE COUNT 0.12 K/ L 0.00-0.50 (BEAKER) (test code = 416) BASOPHILS ABSOLUTE COUNT (BEAKER) 0.02 K/ L 0.00-0.20 (test code = 417) 0.00POCT-GLUCOSE [id number] 20:56:00 Test Item Value Reference Range Interpretation Comments POC-GLUCOSE METER 177 mg/dL 70-110 H TESTED AT [place] [address] ([facility]) [facility] 1538) [address] POCT-GLUCOSE [id number] 16:56:00 Test Item Value Reference Range Interpretation Comments POC-GLUCOSE METER 215 mg/dL 70-110 H TESTED AT [place] [address] ([facility]) (test code = [facility] Ofelia [facility] 1538) [address] POCT-GLUCOSE [id number] 12:12:00 Test Item Value Reference Range Interpretation Comments POC-GLUCOSE METER 161 mg/dL 70-110 H TESTED AT [place] [address] ([facility]) (test code = [facility] Ofelia [facility] 1538) [address] POCT-GLUCOSE [id number] 08:06:00 Test Item Value Reference Range Interpretation Comments POC-GLUCOSE METER 139 mg/dL 70-110 H TESTED AT [place] [address] ([facility]) (test code = [facility] Ofelia [facility] 1538) [address] CBC W/PLT COUNT & AUTO [id number] 05:38:00 Test Item Value Reference Range Interpretation Comments WHITE BLOOD CELL COUNT (AKER) 5.6 K/ L 4.0-10.0 (test code = 775) RED BLOOD CELL COUNT (AKER) 3.43 M/ L 4.00-5.00 L (test code = 761) HEMOGLOBIN (BEAKER) (test code = 9.0 GM/DL 12.0-15.0 L 410) HEMATOCRIT (BEAKER) (test code = 28.2 % 36.0-45.0 L 411) MEAN CORPUSCULAR VOLUME (BEAKER) 82.2 fL 82.0-99.0 (test code = 753) MEAN CORPUSCULAR HEMOGLOBIN 26.1 pg 27.0-33.0 L (BEAKER) (test code = 751) MEAN CORPUSCULAR HEMOGLOBIN CONC 31.7 GM/DL 32.0-36.0 L (BEAKER) (test code = 752) RED CELL DISTRIBUTION WIDTH 15.5 % 10.3-14.2 H (BEAKER) (test code = 412) PLATELET COUNT (BEAKER) (test 155 K/CU MM 150-430 code = 756) MEAN PLATELET VOLUME (BEAKER) 8.5 fL 6.5-10.5 (test code = 754) NUCLEATED RED BLOOD CELLS 0 /100 WBC 0-0 (BEAKER) (test code = 413) NEUTROPHILS RELATIVE PERCENT 70 % (BEAKER) (test code = 429) LYMPHOCYTES RELATIVE PERCENT 19 % (BEAKER) (test code = 430) MONOCYTES RELATIVE PERCENT 9 % (BEAKER) (test code = 431) EOSINOPHILS RELATIVE PERCENT 2 % (BEAKER) (test code = 432) BASOPHILS RELATIVE PERCENT 1 % (BEAKER) (test code = 437) NEUTROPHILS ABSOLUTE COUNT 3.94 K/ L 1.80-8.00 (BEAKER) (test code = 670) LYMPHOCYTES ABSOLUTE COUNT 1.04 K/ L 1.48-4.50 L (BEAKER) (test code = 414) MONOCYTES ABSOLUTE COUNT (BEAKER) 0.48 K/ L 0.00-1.30 (test code = 415) EOSINOPHILS ABSOLUTE COUNT 0.12 K/ L 0.00-0.50 (BEAKER) (test code = 416) BASOPHILS ABSOLUTE COUNT (BEAKER) 0.03 K/ L 0.00-0.20 (test code = 417) 0.00BASI METABOLIC [id number] 05:28:00 Test Item Value Reference Range Interpretation Comments SODIUM (BEAKER) 139 meq/L 136-145 (test code = 381) POTASSIUM (BEAKER) 3.8 meq/L 3.5-5.1 (test code = 379) CHLORIDE (BEAKER) 107 meq/L 98-107 (test code = 382) CO2 (BEAKER) (test 26 meq/L 22-29 code = 355) BLOOD UREA NITROGEN 9 mg/dL 7-21 (BEAKER) (test code = 354) CREATININE (BEAKER) 0.63 mg/dL 0.57-1.25 (test code = 358) GLUCOSE RANDOM 114 mg/dL 70-105 H (BEAKER) (test code = 652) CALCIUM (BEAKER) 8.7 mg/dL 8.4-10.2 (test code = 697) EGFR (BEAKER) (test mL/min/1.73 INSUFFIC IENT CLINICAL code = 1092) sq m DATA TO CALCULA TE ESTIMATED GFR. POCT-GLUCOSE [id number] 21:25:00 Test Item Value Reference Range Interpretation Comments POC-GLUCOSE METER 214 mg/dL 70-110 H TESTED AT [facility] 6720 (BEAKER) (test code = [place] 1538) [address] (MANUAL DIFFERENTIAL)2017-04-13 18:07:00 Test Item Value Reference Range Interpretation Comments NEUTROPHILS - REL (DIFF) (BEAKER) 64 % (test code = 1359) LYMPHOCYTES - REL (DIFF) (BEAKER) 24 % (test code = 1360) MONOCYTES - REL (DIFF) (BEAKER) 11 % (test code = 1361) EOSINOPHILS - REL (DIFF) (BEAKER) 1 % (test code = 1362) NEUTROPHILS - ABS (DIFF) (BEAKER) 3.84 K/ L 1.80-8.00 (test code = 1365) LYMPHOCYTES - ABS (DIFF) (BEAKER) 1.44 K/ L 1.48-4.50 L (test code = 1366) MONOCYTES - ABS (DIFF) (BEAKER) 0.66 K/ L 0.00-1.30 (test code = 1367) EOSINOPHILS - ABS (DIFF) (BEAKER) 0.06 K/ L 0.00-0.50 (test code = 1368) TOTAL COUNTED (BEAKER) (test code = 100 1351) WBC MORPHOLOGY (BEAKER) (test code Normal = 487) PLT MORPHOLOGY (BEAKER) (test code Normal = 486) RBC MORPHOLOGY (BEAKER) (test code Normal = 762) [id number] 17:42:00 Test Item Value Reference Range Interpretation Comments FERRITIN (BEAKER) (test code = 361) 269 ng/mL 5-275 Effective 09/14/2014: Reference Range ChangeNew: Male 5-275 Previous: Male 22- 322 Female 5-275 Female 10-291HEPATITIS C [id number] 17:39:00 Test Item Value Reference Range Interpretation Comments HEPATITIS C ANTIBODY (BEAKER) Nonreactive Nonreactive (test code = 367) HIV-1 ANTIGEN WITH HIV-1/2 [id number] 17:39:00 Test Item Value Reference Range Interpretation Comments HIV-1 ANTIGEN WITH HIV 1\\T\\2 Nonreactive Nonreactive ANTIBODY (2) (BEAKER) (test code = 2586) CBC W/PLT COUNT & AUTO [id number] 17:19:00 Test Item Value Reference Range Interpretation Comments WHITE BLOOD CELL COUNT (BEAKER) 6.0 K/ L 4.0-10.0 (test code = 775) RED BLOOD CELL COUNT (BEAKER) 3.52 M/ L 4.00-5.00 L (test code = 761) HEMOGLOBIN (BEAKER) (test code = 9.0 GM/DL 12.0-15.0 L 410) HEMATOCRIT (BEAKER) (test code = 29.1 % 36.0-45.0 L 411) MEAN CORPUSCULAR VOLUME (BEAKER) 82.5 fL 82.0-99.0 (test code = 753) MEAN CORPUSCULAR HEMOGLOBIN 25.7 pg 27.0-33.0 L (BEAKER) (test code = 751) MEAN CORPUSCULAR HEMOGLOBIN CONC 31.1 GM/DL 32.0-36.0 L (BEAKER) (test code = 752) RED CELL DISTRIBUTION WIDTH 15.8 % 10.3-14.2 H (BEAKER) (test code = 412) PLATELET COUNT (BEAKER) (test 151 K/CU MM 150-430 code = 756) MEAN PLATELET VOLUME (BEAKER) 8.4 fL 6.5-10.5 (test code = 754) NUCLEATED RED BLOOD CELLS 0 /100 WBC 0-0 (BEAKER) (test code = 413) NEUTROPHILS RELATIVE PERCENT 70 % (BEAKER) (test code = 429) LYMPHOCYTES RELATIVE PERCENT 19 % (BEAKER) (test code = 430) MONOCYTES RELATIVE PERCENT 9 % (BEAKER) (test code = 431) EOSINOPHILS RELATIVE PERCENT 2 % (BEAKER) (test code = 432) BASOPHILS RELATIVE PERCENT 0 % (BEAKER) (test code = 437) NEUTROPHILS ABSOLUTE COUNT 4.20 K/ L 1.80-8.00 (BEAKER) (test code = 670) LYMPHOCYTES ABSOLUTE COUNT 1.16 K/ L 1.48-4.50 L (BEAKER) (test code = 414) MONOCYTES ABSOLUTE COUNT (BEAKER) 0.52 K/ L 0.00-1.30 (test code = 415) EOSINOPHILS ABSOLUTE COUNT 0.10 K/ L 0.00-0.50 (BEAKER) (test code = 416) BASOPHILS ABSOLUTE COUNT (BEAKER) 0.03 K/ L 0.00-0.20 (test code = 417) 0.00IRON, TIBC, % SAT. (WITHOUT FERRITIN)2017-04-13 17:18:00 Test Item Value Reference Range Interpretation Comments IRON (BEAKER) (test code = 547) 10 ug/dL 40-160 L TOTAL IRON BINDING CAPACITY 185 ug/dL 250-450 L (BEAKER) (test code = 769) IRON % SATURATION (2) (BEAKER) 5 % 20-55 L (test code = 2590) POCT-GLUCOSE [id number] 17:09:00 Test Item Value Reference Range Interpretation Comments POC-GLUCOSE METER 138 mg/dL 70-110 H TESTED AT [facility] 67 (BEAKER) (test code = [facility] [place] 1538) [address] RETICULOCYTE [id number] 17:03:00 Test Item Value Reference Range Interpretation Comments RETICULOCYTE COUNT PCT (BEAKER) (test 1.3 % 0.4-2.9 code = 575) POCT-GLUCOSE [id number] 12:10:00 Test Item Value Reference Range Interpretation Comments POC-GLUCOSE METER 203 mg/dL 70-110 H TESTED AT [facility] 6720 (BEAKER) (test code = [facility] [place] 1538) [address] HEMOGLOBIN [id number] 11:08:00 Test Item Value Reference Range Interpretation Comments HEMOGLOBIN A1C (BEAKER) (test code = 6.1 % 4.3-6.1 368) URINE [id number] 10:17:00 Test Item Value Reference Range Interpretation Comments CULTURE (BEAKER) (test code No growth = 1095) GRAM STAIN RESULT (BEAKER) <1+ WBCs (test code = 1123) GRAM STAIN RESULT (BEAKER) No organisms seen (test code = 07189) VANCOMYCIN LEVEL, [id number] 09:45:00 Test Item Value Reference Range Interpretation Comments VANCOMYCIN TROUGH (BEAKER) (test 15.6 ug/mL 10.0-20.0 code = 522) CBC W/PLT COUNT & AUTO [id number] 09:00:00 Test Item Value Reference Range Interpretation Comments WHITE BLOOD CELL COUNT (BEAKER) 5.5 K/ L 4.0-10.0 (test code = 775) RED BLOOD CELL COUNT (BEAKER) 3.34 M/ L 4.00-5.00 L (test code = 761) HEMOGLOBIN (BEAKER) (test code = 8.8 GM/DL 12.0-15.0 L 410) HEMATOCRIT (BEAKER) (test code = 27.7 % 36.0-45.0 L 411) MEAN CORPUSCULAR VOLUME (BEAKER) 83.0 fL 82.0-99.0 (test code = 753) MEAN CORPUSCULAR HEMOGLOBIN 26.2 pg 27.0-33.0 L (BEAKER) (test code = 751) MEAN CORPUSCULAR HEMOGLOBIN CONC 31.5 GM/DL 32.0-36.0 L (BEAKER) (test code = 752) RED CELL DISTRIBUTION WIDTH 15.7 % 10.3-14.2 H (BEAKER) (test code = 412) PLATELET COUNT (BEAKER) (test 132 K/CU MM 150-430 L code = 756) MEAN PLATELET VOLUME (BEAKER) 8.9 fL 6.5-10.5 (test code = 754) NUCLEATED RED BLOOD CELLS 0 /100 WBC 0-0 (BEAKER) (test code = 413) NEUTROPHILS RELATIVE PERCENT 70 % (BEAKER) (test code = 429) LYMPHOCYTES RELATIVE PERCENT 19 % (BEAKER) (test code = 430) MONOCYTES RELATIVE PERCENT 10 % (BEAKER) (test code = 431) EOSINOPHILS RELATIVE PERCENT 1 % (BEAKER) (test code = 432) BASOPHILS RELATIVE PERCENT 0 % (BEAKER) (test code = 437) NEUTROPHILS ABSOLUTE COUNT 3.81 K/ L 1.80-8.00 (BEAKER) (test code = 670) LYMPHOCYTES ABSOLUTE COUNT 1.02 K/ L 1.48-4.50 L (BEAKER) (test code = 414) MONOCYTES ABSOLUTE COUNT (BEAKER) 0.56 K/ L 0.00-1.30 (test code = 415) EOSINOPHILS ABSOLUTE COUNT 0.06 K/ L 0.00-0.50 (BEAKER) (test code = 416) BASOPHILS ABSOLUTE COUNT (BEAKER) 0.01 K/ L 0.00-0.20 (test code = 417) 0.00POCT-GLUCOSE [id number] 08:21:00 Test Item Value Reference Range Interpretation Comments POC-GLUCOSE METER 144 mg/dL 70-110 H TESTED AT [place] [address] ([facility]) (test code = [facility] 1538) [address] BASIC METABOLIC [id number] 06:36:00 Test Item Value Reference Range Interpretation Comments SODIUM (BEAKER) 139 meq/L 136-145 (test code = 381) POTASSIUM (BEAKER) 3.7 meq/L 3.5-5.1 (test code = 379) CHLORIDE (BEAKER) 108 meq/L 98-107 H (test code = 382) CO2 (BEAKER) (test 26 meq/L 22-29 code = 355) BLOOD UREA NITROGEN 10 mg/dL 7-21 (BEAKER) (test code = 354) CREATININE (BEAKER) 0.68 mg/dL 0.57-1.25 (test code = 358) GLUCOSE RANDOM 135 mg/dL 70-105 H (BEAKER) (test code = 652) CALCIUM (BEAKER) 8.4 mg/dL 8.4-10.2 (test code = 697) EGFR (BEAKER) (test mL/min/1.73 INSUFFIC IENT CLINICAL code = 1092) sq m DATA TO CALCULA TE ESTIMATED GFR. POCT-GLUCOSE [id number] 21:03:00 Test Item Value Reference Range Interpretation Comments POC-GLUCOSE METER 163 mg/dL 70-110 H TESTED AT [place] [address] ([facility]) (test code = [facility] [place] 1538) [address] POCT-GLUCOSE [id number] 18:23:00 Test Item Value Reference Range Interpretation Comments POC-GLUCOSE METER 166 mg/dL 70-110 H TESTED AT [facility] 67 ([facility]) (test code = [place] [facility] 1538) [address] TSH/FREE T4 IF [id number] 16:47:00 Test Item Value Reference Range Interpretation Comments THYROID STIMULATING HORMONE 1.79 uIU/mL 0.35-4.94 ([facility]) (test code = 772) TISSUE [id number] 15:11:00Surgical Pathology Report Case: [id number] Authorizing Provider: Radha Gallo, Collected: 04/11/2017 1415 MD Ordering Location: [facility] PERIOPERATIVE Received: 04/12/2017 0820 SERVICES Pathologist: Mague Geiger MD Specimen: Explant RIGHT KNEE, REMOVAL OF ORTHOPEDIC HARDWARE: - ORTHOPEDIC HARDWARE, (GROSS DIAGNOSIS ONLY) Infected right knee Hardware The specimen is received in a fluidless container labeled with thepatient's information and labeled "hardware" and consists of an orthopedic hardware spacer measuring6.1 x 3.6 x 0.8 cm. The serial number is "[id number]". There is also metal hardware measuring 5 x 0.6 x0.2 cm. The specimen is submitted for gross identification. CG/ewPOCT-GLUCOSE [id number] 12:42:00 Test Item Value Reference Range Interpretation Comments POC-GLUCOSE METER 145 mg/dL 70-110 H TESTED AT [facility] 67 ([facility]) (test code = [place] [facility] 1538) [address] POCT-GLUCOSE [id number] 08:05:00 Test Item Value Reference Range Interpretation Comments POC-GLUCOSE METER 125 mg/dL 70-110 H TESTED AT [facility] 6720 ([facility]) (test code = [place] [facility] 1538) [address] BASIC METABOLIC [id number] 04:45:00 Test Item Value Reference Range Interpretation Comments SODIUM (BEAKER) 137 meq/L 136-145 (test code = 381) POTASSIUM (BEAKER) 3.9 meq/L 3.5-5.1 (test code = 379) CHLORIDE (BEAKER) 106 meq/L 98-107 (test code = 382) CO2 (BEAKER) (test 24 meq/L 22-29 code = 355) BLOOD UREA NITROGEN 11 mg/dL 7-21 (BEAKER) (test code = 354) CREATININE (BEAKER) 0.72 mg/dL 0.57-1.25 (test code = 358) GLUCOSE RANDOM 129 mg/dL 70-105 H (BEAKER) (test code = 652) CALCIUM (BEAKER) 8.4 mg/dL 8.4-10.2 (test code = 697) EGFR (BEAKER) (test mL/min/1.73 INSUFFIC IENT CLINICAL code = 1092) sq m DATA TO CALCULA TE ESTIMATED GFR. CBC W/PLT COUNT & AUTO [id number] 04:29:00 Test Item Value Reference Range Interpretation Comments WHITE BLOOD CELL COUNT (BEAKER) 8.8 K/ L 4.0-10.0 (test code = 775) RED BLOOD CELL COUNT (BEAKER) 3.65 M/ L 4.00-5.00 L (test code = 761) HEMOGLOBIN (BEAKER) (test code = 9.6 GM/DL 12.0-15.0 L 410) HEMATOCRIT (BEAKER) (test code = 30.0 % 36.0-45.0 L 411) MEAN CORPUSCULAR VOLUME (BEAKER) 82.3 fL 82.0-99.0 (test code = 753) MEAN CORPUSCULAR HEMOGLOBIN 26.2 pg 27.0-33.0 L (BEAKER) (test code = 751) MEAN CORPUSCULAR HEMOGLOBIN CONC 31.8 GM/DL 32.0-36.0 L (BEAKER) (test code = 752) RED CELL DISTRIBUTION WIDTH 15.7 % 10.3-14.2 H (BEAKER) (test code = 412) PLATELET COUNT (BEAKER) (test 134 K/CU MM 150-430 L code = 756) MEAN PLATELET VOLUME (BEAKER) 8.0 fL 6.5-10.5 (test code = 754) NUCLEATED RED BLOOD CELLS 0 /100 WBC 0-0 (BEAKER) (test code = 413) NEUTROPHILS RELATIVE PERCENT 81 % (BEAKER) (test code = 429) LYMPHOCYTES RELATIVE PERCENT 12 % (BEAKER) (test code = 430) MONOCYTES RELATIVE PERCENT 6 % (BEAKER) (test code = 431) EOSINOPHILS RELATIVE PERCENT 1 % (BEAKER) (test code = 432) BASOPHILS RELATIVE PERCENT 0 % (BEAKER) (test code = 437) NEUTROPHILS ABSOLUTE COUNT 7.16 K/ L 1.80-8.00 (BEAKER) (test code = 670) LYMPHOCYTES ABSOLUTE COUNT 1.04 K/ L 1.48-4.50 L (BEAKER) (test code = 414) MONOCYTES ABSOLUTE COUNT (BEAKER) 0.53 K/ L 0.00-1.30 (test code = 415) EOSINOPHILS ABSOLUTE COUNT 0.06 K/ L 0.00-0.50 (BEAKER) (test code = 416) BASOPHILS ABSOLUTE COUNT (BEAKER) 0.03 K/ L 0.00-0.20 (test code = 417) 0.00POCT-GLUCOSE [id number] 21:07:00 Test Item Value Reference Range Interpretation Comments POC-GLUCOSE METER 212 mg/dL 70-110 H TESTED AT [facility] 67 (BEAKER) (test code = [place] 1538) [address] POCT-GLUCOSE [id number] 16:46:00 Test Item Value Reference Range Interpretation Comments POC-GLUCOSE METER 127 mg/dL 70-110 H TESTED AT [place] [address] (BEAKER) (test code = [place] 1538) [address] URINALYSIS W/ [id number] 12:56:00 Test Item Value Reference Range Interpretation Comments COLOR (BEAKER) (test code = 470) Light Yellow CLARITY (BEAKER) (test code = Clear 469) SPECIFIC GRAVITY UA (BEAKER) 1.007 1.001-1.035 (test code = 468) PH UA (BEAKER) (test code = 467) 6.0 5.0-8.0 PROTEIN UA (BEAKER) (test code = Negative Negative 464) GLUCOSE UA (BEAKER) (test code = Negative Negative 365) KETONES UA (BEAKER) (test code = Trace Negative A 371) BILIRUBIN UA (BEAKER) (test code Negative Negative = 462) BLOOD UA (BEAKER) (test code = Negative Negative 461) NITRITE UA (BEAKER) (test code = Negative Negative 465) LEUKOCYTE ESTERASE UA (BEAKER) Negative Negative (test code = 466) UROBILINOGEN UA (BEAKER) (test 0.2 mg/dL 0.2-1.0 code = 463) RBC UA (BEAKER) (test code = < /HPF 519) WBC UA (BEAKER) (test code = 2 /HPF 520) MUCUS (BEAKER) (test code = Rare 1574) SQUAMOUS EPITHELIAL (BEAKER) 1 /HPF (test code = 516) SOURCE(BEAKER) (test code = 2795) BODY FLUID [id number] 12:35:00 Test Item Value Reference Range Interpretation Comments CRYSTALS, BODY FLUID No crystals seen. (BEAKER) (test code = 2165) [id number] Luis Jalloh MD (BEAKER) (test code = (electronic signature) 3845) POCT-GLUCOSE [id number] 12:34:00 Test Item Value Reference Range Interpretation Comments POC-GLUCOSE METER 122 mg/dL 70-110 H TESTED AT [facility] 67 (BEAKER) (test code = [facility] 1538) [address] POCT-GLUCOSE [id number] 08:29:00 Test Item Value Reference Range Interpretation Comments POC-GLUCOSE METER 158 mg/dL 70-110 H TESTED AT [place] [address] (BEAKER) (test code = [facility] 1538) [address] BODY FLUID CELL COUNT WITH [id number] 07:59:00 Test Item Value Reference Range Interpretation Comments APPEARANCE FLUID (BEAKER) (test Cloudy Clear A code = 510) COLOR FLUID (BEAKER) (test code Yellow Colorless, Straw A = 511) RBC FLUID (BEAKER) (test code = 3223 /cu mm <=1 H 513) ADJUSTED WBC FLUID (BEAKER) 79379 /cu mm <=5 H (test code = 1691) LINING CELLS (BEAKER) (test 0 /cu mm <=1 code = 1590) NEUTROPHILS FLUID (BEAKER) 86 % (test code = 1656) LYMPHS FLUID (BEAKER) (test 6 % code = 488) MONO/MACROPHAGE FLUID (BEAKER) 8 % (test code = 489) EOSINOPHILS FLUID (BEAKER) 0 % (test code = 491) BASO FLUID (BEAKER) (test code 0 % = 492) CONTAINER BODY FLUID (BEAKER) EDTA Tube (test code = 2873) BASIC METABOLIC [id number] 05:09:00 Test Item Value Reference Range Interpretation Comments SODIUM (BEAKER) 138 meq/L 136-145 (test code = 381) POTASSIUM (BEAKER) 3.7 meq/L 3.5-5.1 (test code = 379) CHLORIDE (BEAKER) 103 meq/L 98-107 (test code = 382) CO2 (BEAKER) (test 26 meq/L 22-29 code = 355) BLOOD UREA NITROGEN 12 mg/dL 7-21 (BEAKER) (test code = 354) CREATININE (BEAKER) 0.72 mg/dL 0.57-1.25 (test code = 358) GLUCOSE RANDOM 124 mg/dL 70-105 H (BEAKER) (test code = 652) CALCIUM (BEAKER) 9.4 mg/dL 8.4-10.2 (test code = 697) EGFR (BEAKER) (test mL/min/1.73 INSUFFIC IENT CLINICAL code = 1092) sq m DATA TO CALCULA TE ESTIMATED GFR. CBC W/PLT COUNT & AUTO [id number] 05:06:00 Test Item Value Reference Range Interpretation Comments WHITE BLOOD CELL COUNT (BEAKER) 8.7 K/ L 4.0-10.0 (test code = 775) RED BLOOD CELL COUNT (BEAKER) 4.31 M/ L 4.00-5.00 (test code = 761) HEMOGLOBIN (BEAKER) (test code = 11.4 GM/DL 12.0-15.0 L 410) HEMATOCRIT (BEAKER) (test code = 34.9 % 36.0-45.0 L 411) MEAN CORPUSCULAR VOLUME (BEAKER) 80.9 fL 82.0-99.0 L (test code = 753) MEAN CORPUSCULAR HEMOGLOBIN 26.4 pg 27.0-33.0 L (BEAKER) (test code = 751) MEAN CORPUSCULAR HEMOGLOBIN CONC 32.6 GM/DL 32.0-36.0 (BEAKER) (test code = 752) RED CELL DISTRIBUTION WIDTH 16.1 % 10.3-14.2 H (BEAKER) (test code = 412) PLATELET COUNT (BEAKER) (test 153 K/CU MM 150-430 code = 756) MEAN PLATELET VOLUME (BEAKER) 8.3 fL 6.5-10.5 (test code = 754) NUCLEATED RED BLOOD CELLS 0 /100 WBC 0-0 (BEAKER) (test code = 413) NEUTROPHILS RELATIVE PERCENT 70 % (BEAKER) (test code = 429) LYMPHOCYTES RELATIVE PERCENT 20 % (BEAKER) (test code = 430) MONOCYTES RELATIVE PERCENT 9 % (BEAKER) (test code = 431) EOSINOPHILS RELATIVE PERCENT 1 % (BEAKER) (test code = 432) BASOPHILS RELATIVE PERCENT 0 % (BEAKER) (test code = 437) NEUTROPHILS ABSOLUTE COUNT 6.08 K/ L 1.80-8.00 (BEAKER) (test code = 670) LYMPHOCYTES ABSOLUTE COUNT 1.70 K/ L 1.48-4.50 (BEAKER) (test code = 414) MONOCYTES ABSOLUTE COUNT (BEAKER) 0.81 K/ L 0.00-1.30 (test code = 415) EOSINOPHILS ABSOLUTE COUNT 0.09 K/ L 0.00-0.50 (BEAKER) (test code = 416) BASOPHILS ABSOLUTE COUNT (BEAKER) 0.02 K/ L 0.00-0.20 (test code = 417) 0.00[facility] GLUCOSE [id number] 11:25:00 Test Item Value Reference Range Interpretation Comments Gluc POC Comment 1 (test code = Sliding Scale Gluc POC Comment 1) [facility] GLUCOSE [id number] 11:25:00 Test Item Value Reference Range Interpretation Comments Gluc POC Comment 2 (test code = Notify RN/MD Gluc POC Comment 2) [facility] GLUCOSE [id number] 11:25:00 Test Item Value Reference Range Interpretation Comments Gluc POC (test code = Gluc POC) 167 70-99 H [facility] GLUCOSE [id number] 11:25:00 Test Item Value Reference Range Interpretation Comments Gluc POC Comment 1 (test code = Sliding Scale Gluc POC Comment 1) [facility] GLUCOSE [id number] 11:25:00 Test Item Value Reference Range Interpretation Comments Gluc POC Comment 2 (test code = Notify RN/MD Gluc POC Comment 2) [facility] GLUCOSE [id number] 11:25:00 Test Item Value Reference Range Interpretation Comments Gluc POC (test code = Gluc POC) 167 70-99 H [facility] GLUCOSE [id number] 11:25:00 Test Item Value Reference Range Interpretation Comments Gluc POC Comment 1 (test code = Sliding Scale Gluc POC Comment 1) [facility] GLUCOSE [id number] 11:25:00 Test Item Value Reference Range Interpretation Comments Gluc POC Comment 2 (test code = Notify RN/MD Gluc POC Comment 2) [facility] GLUCOSE [id number] 11:25:00 Test Item Value Reference Range Interpretation Comments Gluc POC (test code = Gluc POC) 167 70-99 H [facility] GLUCOSE [id number] 11:25:00 Test Item Value Reference Range Interpretation Comments Gluc POC Comment 1 (test code = Sliding Scale Gluc POC Comment 1) [facility] GLUCOSE [id number] 11:25:00 Test Item Value Reference Range Interpretation Comments Gluc POC Comment 2 (test code = Notify RN/MD Gluc POC Comment 2) [facility] GLUCOSE [id number] 11:25:00 Test Item Value Reference Range Interpretation Comments Gluc POC (test code = Gluc POC) 167 70-99 H [facility] GLUCOSE [id number] 11:25:00 Test Item Value Reference Range Interpretation Comments Gluc POC Comment 1 (test code = Sliding Scale Gluc POC Comment 1) [facility] GLUCOSE [id number] 11:25:00 Test Item Value Reference Range Interpretation Comments Gluc POC Comment 2 (test code = Notify RN/MD Gluc POC Comment 2) [facility] GLUCOSE [id number] 11:25:00 Test Item Value Reference Range Interpretation Comments Gluc POC (test code = Gluc POC) 167 70-99 H [facility] GLUCOSE [id number] 11:25:00 Test Item Value Reference Range Interpretation Comments Gluc POC Comment 1 (test code = Sliding Scale Gluc POC Comment 1) [facility] GLUCOSE [id number] 11:25:00 Test Item Value Reference Range Interpretation Comments Gluc POC Comment 2 (test code = Notify RN/MD Gluc POC Comment 2) [facility] GLUCOSE [id number] 11:25:00 Test Item Value Reference Range Interpretation Comments Gluc POC (test code = Gluc POC) 167 70-99 H [id number] 09:40:00 Test Item Value Reference Range Interpretation Comments eGFR (test code = eGFR) 75 [id number] 09:40:00 Test Item Value Reference Range Interpretation Comments Creatinine Lvl (test code = Creatinine 0.8 0.5-1.4 N Lvl) [id number] 09:40:00 Test Item Value Reference Range Interpretation Comments Sodium Lvl (test code = Sodium Lvl) 143 135-145 N [id number] 09:40:00 Test Item Value Reference Range Interpretation Comments BUN (test code = BUN) 21 7-22 N [id number] 09:40:00 Test Item Value Reference Range Interpretation Comments AGAP (test code = AGAP) 17.1 10.0-20.0 N [id number] 09:40:00 Test Item Value Reference Range Interpretation Comments Calcium Lvl (test code = Calcium Lvl) 8.8 8.5-10.5 N [id number] 09:40:00 Test Item Value Reference Range Interpretation Comments CO2 (test code = CO2) 25 24-32 N [id number] 09:40:00 Test Item Value Reference Range Interpretation Comments Chloride Lvl (test code = Chloride Lvl) 105 95-109 N [id number] 09:40:00 Test Item Value Reference Range Interpretation Comments Potassium Lvl (test code = Potassium 4.1 3.5-5.1 N Lvl) [id number] 09:40:00 Test Item Value Reference Range Interpretation Comments Glucose Lvl (test code = Glucose Lvl) 126 70-99 H [id number] 09:40:00 Test Item Value Reference Range Interpretation Comments eGFR (test code = eGFR) 75 [id number] 09:40:00 Test Item Value Reference Range Interpretation Comments Creatinine Lvl (test code = Creatinine 0.8 0.5-1.4 N Lvl) [id number] 09:40:00 Test Item Value Reference Range Interpretation Comments Sodium Lvl (test code = Sodium Lvl) 143 135-145 N [id number] 09:40:00 Test Item Value Reference Range Interpretation Comments BUN (test code = BUN) 21 7-22 N [id number] 09:40:00 Test Item Value Reference Range Interpretation Comments AGAP (test code = AGAP) 17.1 10.0-20.0 N [id number] 09:40:00 Test Item Value Reference Range Interpretation Comments Calcium Lvl (test code = Calcium Lvl) 8.8 8.5-10.5 N [facility][id number] 09:40:00 Test Item Value Reference Range Interpretation Comments CO2 (test code = CO2) 25 24-32 N [facility]manJflflluXKEBOOEKZ5548-00-18 09:40:00 Test Item Value Reference Range Interpretation Comments Chloride Lvl (test code = Chloride Lvl) 105 95-109 N [facility][id number] 09:40:00 Test Item Value Reference Range Interpretation Comments Potassium Lvl (test code = Potassium 4.1 3.5-5.1 N Lvl) [id number] 09:40:00 Test Item Value Reference Range Interpretation Comments Glucose Lvl (test code = Glucose Lvl) 126 70-99 H [facility][id number] 09:40:00 Test Item Value Reference Range Interpretation Comments eGFR (test code = eGFR) 75 [id number] 09:40:00 Test Item Value Reference Range Interpretation Comments Creatinine Lvl (test code = Creatinine 0.8 0.5-1.4 N Lvl) [facility][id number] 09:40:00 Test Item Value Reference Range Interpretation Comments Sodium Lvl (test code = Sodium Lvl) 143 135-145 N [facility][id number] 09:40:00 Test Item Value Reference Range Interpretation Comments BUN (test code = BUN) 21 7-22 N [id number] 09:40:00 Test Item Value Reference Range Interpretation Comments AGAP (test code = AGAP) 17.1 10.0-20.0 N [facility][id number] 09:40:00 Test Item Value Reference Range Interpretation Comments Calcium Lvl (test code = Calcium Lvl) 8.8 8.5-10.5 N [id number] 09:40:00 Test Item Value Reference Range Interpretation Comments CO2 (test code = CO2) 24-32 N [facility][id number] 09:40:00 Test Item Value Reference Range Interpretation Comments Chloride Lvl (test code = Chloride Lvl) 105 95-109 N [facility]manOatgbvrERFFCEUVL7765-37-72 09:40:00 Test Item Value Reference Range Interpretation Comments Potassium Lvl (test code = Potassium 4.1 3.5-5.1 N Lvl) [id number] 09:40:00 Test Item Value Reference Range Interpretation Comments Glucose Lvl (test code = Glucose Lvl) 126 70-99 H [facility][id number] 09:40:00 Test Item Value Reference Range Interpretation Comments eGFR (test code = eGFR) 75 [facility]manLvcvgmzXWFWQCEII0108-28-36 09:40:00 Test Item Value Reference Range Interpretation Comments Creatinine Lvl (test code = Creatinine 0.8 0.5-1.4 N Lvl) [facility][id number] 09:40:00 Test Item Value Reference Range Interpretation Comments Sodium Lvl (test code = Sodium Lvl) 143 135-145 N [facility]manNleeyxdBSJZAQNYM0888-14-27 09:40:00 Test Item Value Reference Range Interpretation Comments BUN (test code = BUN) 21 7-22 N [facility]manEbhgjdzWFHVVFBFK2298-37-78 09:40:00 Test Item Value Reference Range Interpretation Comments AGAP (test code = AGAP) 17.1 10.0-20.0 N [facility]manHuttiawMZFBDNHBZ9226-31-15 09:40:00 Test Item Value Reference Range Interpretation Comments Calcium Lvl (test code = Calcium Lvl) 8.8 8.5-10.5 N [facility]manBmhxbjyRINQFQOQL9532-46-12 09:40:00 Test Item Value Reference Range Interpretation Comments CO2 (test code = CO2) 24-32 N [facility]manMtgmulyAWTVKIKOC4766-77-27 09:40:00 Test Item Value Reference Range Interpretation Comments Chloride Lvl (test code = Chloride Lvl) 105 95-109 N [facility][id number] 09:40:00 Test Item Value Reference Range Interpretation Comments Potassium Lvl (test code = Potassium 4.1 3.5-5.1 N Lvl) [facility][id number] 09:40:00 Test Item Value Reference Range Interpretation Comments Glucose Lvl (test code = Glucose Lvl) 126 70-99 H [id number] 09:40:00 Test Item Value Reference Range Interpretation Comments eGFR (test code = eGFR) 75 [facility]manCseuifiXRVBMLSZT3744-61-96 09:40:00 Test Item Value Reference Range Interpretation Comments Creatinine Lvl (test code = Creatinine 0.8 0.5-1.4 N Lvl) [facility]manMpqrcaiSLJYGXGRF0142-84-48 09:40:00 Test Item Value Reference Range Interpretation Comments Sodium Lvl (test code = Sodium Lvl) 143 135-145 N [facility]manQgddfusRRAOVQANF1117-51-54 09:40:00 Test Item Value Reference Range Interpretation Comments BUN (test code = BUN) 21 7-22 N [facility]manOqqfjujQENJSOUBB6370-16-68 09:40:00 Test Item Value Reference Range Interpretation Comments AGAP (test code = AGAP) 17.1 10.0-20.0 N [facility]manUqohvdkUBPEZVIGN1946-47-15 09:40:00 Test Item Value Reference Range Interpretation Comments Calcium Lvl (test code = Calcium Lvl) 8.8 8.5-10.5 N [facility]manIldecyjFSRHODWWF4555-18-08 09:40:00 Test Item Value Reference Range Interpretation Comments CO2 (test code = CO2) 25 24-32 N [facility]UghjwpmJDIQBKFQV8848-56-63 09:40:00 Test Item Value Reference Range Interpretation Comments Chloride Lvl (test code = Chloride Lvl) 105 95-109 N [facility]XqlgnagEIQRGJTCO7714-81-40 09:40:00 Test Item Value Reference Range Interpretation Comments Potassium Lvl (test code = Potassium 4.1 3.5-5.1 N Lvl) [facility]IlslpvsWXPZTKVSW1156-85-65 09:40:00 Test Item Value Reference Range Interpretation Comments Glucose Lvl (test code = Glucose Lvl) 126 70-99 [facility]NbxiruyEWKFDLOVO5577-24-25 09:40:00 Test Item Value Reference Range Interpretation Comments eGFR (test code = eGFR) 75 [facility]manZyhmhiaAVSBTQQZZ3990-82-25 09:40:00 Test Item Value Reference Range Interpretation Comments Creatinine Lvl (test code = Creatinine 0.8 0.5-1.4 N Lvl) [id number] 09:40:00 Test Item Value Reference Range Interpretation Comments Sodium Lvl (test code = Sodium Lvl) 143 135-145 N [facility]UuqsqrtBSRRRYGDB6175-27-49 09:40:00 Test Item Value Reference Range Interpretation Comments BUN (test code = BUN) 21 7-22 N [facility]FqhlvjbPAVYEUIUE9929-74-55 09:40:00 Test Item Value Reference Range Interpretation Comments AGAP (test code = AGAP) 17.1 10.0-20.0 N [facility]EcxtvkoXZAOGLQWE9740-17-72 09:40:00 Test Item Value Reference Range Interpretation Comments Calcium Lvl (test code = Calcium Lvl) 8.8 8.5-10.5 N [facility]manRdkkrcxQGOTTQYPU8108-91-71 09:40:00 Test Item Value Reference Range Interpretation Comments CO2 (test code = CO2) 25 24-32 N [facility]CjxggpvANSWBPSGW8215-96-61 09:40:00 Test Item Value Reference Range Interpretation Comments Chloride Lvl (test code = Chloride Lvl) 105 95-109 N [facility]manJjshnahSUCQLTRYU5182-37-19 09:40:00 Test Item Value Reference Range Interpretation Comments Potassium Lvl (test code = Potassium 4.1 3.5-5.1 N Lvl) [facility]manOroqcavBRKPQTYLQ8759-20-16 09:40:00 Test Item Value Reference Range Interpretation Comments Glucose Lvl (test code = Glucose Lvl) 126 70-99 H [facility] GLUCOSE [id number] 02:50:00 Test Item Value Reference Range Interpretation Comments Gluc POC (test code = Gluc POC) 221 70-99 H [facility] GLUCOSE [id number] 02:50:00 Test Item Value Reference Range Interpretation Comments Gluc POC Comment 1 (test code Assess Patient = Gluc POC Comment 1) [facility] GLUCOSE [id number] 02:50:00 Test Item Value Reference Range Interpretation Comments Gluc POC (test code = Gluc POC) 221 70-99 H [facility] GLUCOSE [id number] 02:50:00 Test Item Value Reference Range Interpretation Comments Gluc POC Comment 1 (test code Assess Patient = Gluc POC Comment 1) [facility] GLUCOSE [id number] 02:50:00 Test Item Value Reference Range Interpretation Comments Gluc POC (test code = Gluc POC) 221 70-99 H [facility] GLUCOSE [id number] 02:50:00 Test Item Value Reference Range Interpretation Comments Gluc POC Comment 1 (test code Assess Patient = Gluc POC Comment 1) [facility] GLUCOSE [id number] 02:50:00 Test Item Value Reference Range Interpretation Comments Gluc POC (test code = Gluc POC) 221 70-99 H [facility] GLUCOSE [id number] 02:50:00 Test Item Value Reference Range Interpretation Comments Gluc POC Comment 1 (test code Assess Patient = Gluc POC Comment 1) [facility] GLUCOSE [id number] 02:50:00 Test Item Value Reference Range Interpretation Comments Gluc POC (test code = Gluc POC) 221 70-99 H [facility] GLUCOSE [id number] 02:50:00 Test Item Value Reference Range Interpretation Comments Gluc POC Comment 1 (test code Assess Patient = Gluc POC Comment 1) [facility] GLUCOSE [id number] 02:50:00 Test Item Value Reference Range Interpretation Comments Gluc POC (test code = Gluc POC) 221 70-99 H [facility] GLUCOSE [id number] 02:50:00 Test Item Value Reference Range Interpretation Comments Gluc POC Comment 1 (test code Assess Patient = Gluc POC Comment 1) [id number] 23:30:19 Test Item Value Reference Range Interpretation Comments Glucose Lvl (test code = Glucose Lvl) 178 70-99 H [facility]XdjksmgNTLWLQVZB5593-04-26 23:30:19 Test Item Value Reference Range Interpretation Comments BUN (test code = BUN) 18 7-22 N [facility]BygxsjxZWRXKJUCI8211-15-51 23:30:19 Test Item Value Reference Range Interpretation Comments eGFR (test code = eGFR) 65 [facility]UinbvkhLUNBHUJGX1872-65-01 23:30:19 Test Item Value Reference Range Interpretation Comments AGAP (test code = AGAP) 15.3 10.0-20.0 N [id number] 23:30:19 Test Item Value Reference Range Interpretation Comments Sodium Lvl (test code = Sodium Lvl) 140 135-145 N [id number] 23:30:19 Test Item Value Reference Range Interpretation Comments Creatinine Lvl (test code = Creatinine 0.9 0.5-1.4 N Lvl) [id number] 23:30:19 Test Item Value Reference Range Interpretation Comments Calcium Lvl (test code = Calcium Lvl) 8.4 8.5-10.5 L [facility]UukiwmrUGPTESPEA0151-28-12 23:30:19 Test Item Value Reference Range Interpretation Comments CO2 (test code = CO2) 26 24-32 N [facility]NqkdusxQQBNBGCKF0851-25-65 23:30:19 Test Item Value Reference Range Interpretation Comments Potassium Lvl (test code = Potassium 4.3 3.5-5.1 N Lvl) [id number] 23:30:19 Test Item Value Reference Range Interpretation Comments Chloride Lvl (test code = Chloride Lvl) 103 95-109 N [facility]EzpfscvIKUMQZRDV9816-13-93 23:30:19 Test Item Value Reference Range Interpretation Comments Glucose Lvl (test code = Glucose Lvl) 178 70-99 H [facility]TvcslkdHBLWCFLIR5266-28-87 23:30:19 Test Item Value Reference Range Interpretation Comments BUN (test code = BUN) 18 7-22 N [id number] 23:30:19 Test Item Value Reference Range Interpretation Comments eGFR (test code = eGFR) 65 [id number] 23:30:19 Test Item Value Reference Range Interpretation Comments AGAP (test code = AGAP) 15.3 10.0-20.0 N [facility]UcyiizqVFCMSWESD2360-97-07 23:30:19 Test Item Value Reference Range Interpretation Comments Sodium Lvl (test code = Sodium Lvl) 140 135-145 N [id number] 23:30:19 Test Item Value Reference Range Interpretation Comments Creatinine Lvl (test code = Creatinine 0.9 0.5-1.4 N Lvl) [facility][id number] 23:30:19 Test Item Value Reference Range Interpretation Comments Calcium Lvl (test code = Calcium Lvl) 8.4 8.5-10.5 L [facility]OtmwejbVVKQFSDPF1732-72-67 23:30:19 Test Item Value Reference Range Interpretation Comments CO2 (test code = CO2) 26 24-32 N [facility]QciqjdrQEWLIEJIW2346-46-48 23:30:19 Test Item Value Reference Range Interpretation Comments Potassium Lvl (test code = Potassium 4.3 3.5-5.1 N Lvl) [facility][id number] 23:30:19 Test Item Value Reference Range Interpretation Comments Chloride Lvl (test code = Chloride Lvl) 103 95-109 N [facility][id number] 23:30:19 Test Item Value Reference Range Interpretation Comments Glucose Lvl (test code = Glucose Lvl) 178 70-99 H [id number] 23:30:19 Test Item Value Reference Range Interpretation Comments BUN (test code = BUN) 18 7-22 N [facility]manTrkwanwVKDCASXWP5750-44-66 23:30:19 Test Item Value Reference Range Interpretation Comments eGFR (test code = eGFR) 65 [facility]manVhhtxubQWVJQVJYM2055-26-46 23:30:19 Test Item Value Reference Range Interpretation Comments AGAP (test code = AGAP) 15.3 10.0-20.0 N [facility]manMcyphmaMIEUGAFUI0552-73-85 23:30:19 Test Item Value Reference Range Interpretation Comments Sodium Lvl (test code = Sodium Lvl) 140 135-145 N [facility]GpslsumAVBGBQFNU1536-61-22 23:30:19 Test Item Value Reference Range Interpretation Comments Creatinine Lvl (test code = Creatinine 0.9 0.5-1.4 N Lvl) [facility]manGakklnxHXPLHYUQO3232-06-59 23:30:19 Test Item Value Reference Range Interpretation Comments Calcium Lvl (test code = Calcium Lvl) 8.4 8.5-10.5 L [facility]manAqstakcLICEXNINT2541-29-71 23:30:19 Test Item Value Reference Range Interpretation Comments CO2 (test code = CO2) 26 24-32 N [facility]manSgdyluuRCYYWZXLB0594-64-05 23:30:19 Test Item Value Reference Range Interpretation Comments Potassium Lvl (test code = Potassium 4.3 3.5-5.1 N Lvl) [facility]manUfkwqttSBBLRLGNV1707-79-98 23:30:19 Test Item Value Reference Range Interpretation Comments eGFR (test code = eGFR) 65 [id number] 23:30:19 Test Item Value Reference Range Interpretation Comments AGAP (test code = AGAP) 15.3 10.0-20.0 N [facility]manRhovuffBEAOIMNRG0762-01-04 23:30:19 Test Item Value Reference Range Interpretation Comments Sodium Lvl (test code = Sodium Lvl) 140 135-145 N [facility]OlfcnxiKIMZCKZER6587-57-86 23:30:19 Test Item Value Reference Range Interpretation Comments Creatinine Lvl (test code = Creatinine 0.9 0.5-1.4 N Lvl) [id number] 23:30:19 Test Item Value Reference Range Interpretation Comments Calcium Lvl (test code = Calcium Lvl) 8.4 8.5-10.5 L [facility]FmseqqhPIRPRINNT7972-25-75 23:30:19 Test Item Value Reference Range Interpretation Comments CO2 (test code = CO2) 26 24-32 N [facility]GtamtjwUXPDHZDEI4935-71-46 23:30:19 Test Item Value Reference Range Interpretation Comments Chloride Lvl (test code = Chloride Lvl) 103 95-109 N [facility]manFiewkvjAINGVBVHH5363-17-90 23:30:19 Test Item Value Reference Range Interpretation Comments Potassium Lvl (test code = Potassium 4.3 3.5-5.1 N Lvl) [facility]manLgixvzkVTFIMJQKY5811-23-86 23:30:19 Test Item Value Reference Range Interpretation Comments Chloride Lvl (test code = Chloride Lvl) 103 95-109 N [facility][id number] 23:30:19 Test Item Value Reference Range Interpretation Comments Glucose Lvl (test code = Glucose Lvl) 178 70-99 H [facility][id number] 23:30:19 Test Item Value Reference Range Interpretation Comments BUN (test code = BUN) 18 7-22 N [facility][id number] 23:30:19 Test Item Value Reference Range Interpretation Comments Glucose Lvl (test code = Glucose Lvl) 178 70-99 H [facility]manNzxqxtxJPIBWTVPF1609-69-34 23:30:19 Test Item Value Reference Range Interpretation Comments BUN (test code = BUN) 18 7-22 N [facility][id number] 23:30:19 Test Item Value Reference Range Interpretation Comments eGFR (test code = eGFR) 65 [id number] 23:30:19 Test Item Value Reference Range Interpretation Comments AGAP (test code = AGAP) 15.3 10.0-20.0 N [facility]manXxakmsgOFUAHDYAB4195-59-10 23:30:19 Test Item Value Reference Range Interpretation Comments Sodium Lvl (test code = Sodium Lvl) 140 135-145 N [facility]manLtcfksxPFKSBUJVU1917-47-06 23:30:19 Test Item Value Reference Range Interpretation Comments Creatinine Lvl (test code = Creatinine 0.9 0.5-1.4 N Lvl) [facility]manChsbtgjXLCWJTHTC6612-91-35 23:30:19 Test Item Value Reference Range Interpretation Comments Calcium Lvl (test code = Calcium Lvl) 8.4 8.5-10.5 L [id number] 23:30:19 Test Item Value Reference Range Interpretation Comments CO2 (test code = CO2) 26 24-32 N [facility]manAlkoimcLGJTEOJXT2770-36-31 23:30:19 Test Item Value Reference Range Interpretation Comments Potassium Lvl (test code = Potassium 4.3 3.5-5.1 N Lvl) [facility][id number] 23:30:19 Test Item Value Reference Range Interpretation Comments Chloride Lvl (test code = Chloride Lvl) 103 95-109 N [facility]manZdiqiasKELOXFDUS1791-25-53 23:30:19 Test Item Value Reference Range Interpretation Comments Glucose Lvl (test code = Glucose Lvl) 178 70-99 H [facility]manCqczzfmBIGHTJHDV0466-38-71 23:30:19 Test Item Value Reference Range Interpretation Comments BUN (test code = BUN) 18 7-22 N [facility]manFcxrycaKZDGAEIEZ9642-08-94 23:30:19 Test Item Value Reference Range Interpretation Comments eGFR (test code = eGFR) 65 [facility]manSuagljqGRFYVWQTF8265-04-08 23:30:19 Test Item Value Reference Range Interpretation Comments AGAP (test code = AGAP) 15.3 10.0-20.0 N [facility][id number] 23:30:19 Test Item Value Reference Range Interpretation Comments Sodium Lvl (test code = Sodium Lvl) 140 135-145 N [facility]manOmonwnfQMIBVJREM2551-20-66 23:30:19 Test Item Value Reference Range Interpretation Comments Creatinine Lvl (test code = Creatinine 0.9 0.5-1.4 N Lvl) [facility]WvehsliQCUGCDWTH0683-11-96 23:30:19 Test Item Value Reference Range Interpretation Comments Calcium Lvl (test code = Calcium Lvl) 8.4 8.5-10.5 L [facility] SpringsTvnwiclCTACIOMNC6404-58-33 23:30:19 Test Item Value Reference Range Interpretation Comments CO2 (test code = CO2) 26 24-32 N [facility] SpringsBxzzrrhUYTFBASCG2187-31-56 23:30:19 Test Item Value Reference Range Interpretation Comments Potassium Lvl (test code = Potassium 4.3 3.5-5.1 N Lvl) [facility] SpringsVbcycgyIRZMQICKE3295-25-99 23:30:19 Test Item Value Reference Range Interpretation Comments Chloride Lvl (test code = Chloride Lvl) 103 95-109 N [facility] GLUCOSE [id number] 21:09:00 Test Item Value Reference Range Interpretation Comments Gluc POC Comment 1 (test code = Verify w/Lab Gluc POC Comment 1) [facility] GLUCOSE [id number] 21:09:00 Test Item Value Reference Range Interpretation Comments Gluc POC (test code = Gluc POC) 194 70-99 H [facility] GLUCOSE [id number] 21:09:00 Test Item Value Reference Range Interpretation Comments Gluc POC Comment 1 (test code = Verify w/Lab Gluc POC Comment 1) [facility] GLUCOSE [id number] 21:09:00 Test Item Value Reference Range Interpretation Comments Gluc POC (test code = Gluc POC) 194 70-99 H [facility] GLUCOSE [id number] 21:09:00 Test Item Value Reference Range Interpretation Comments Gluc POC Comment 1 (test code = Verify w/Lab Gluc POC Comment 1) [facility] GLUCOSE [id number] 21:09:00 Test Item Value Reference Range Interpretation Comments Gluc POC (test code = Gluc POC) 194 70-99 H [facility] GLUCOSE [id number] 21:09:00 Test Item Value Reference Range Interpretation Comments Gluc POC Comment 1 (test code = Verify w/Lab Gluc POC Comment 1) [facility] GLUCOSE [id number] 21:09:00 Test Item Value Reference Range Interpretation Comments Gluc POC (test code = Gluc POC) 194 70-99 H [facility] GLUCOSE [id number] 21:09:00 Test Item Value Reference Range Interpretation Comments Gluc POC Comment 1 (test code = Verify w/Lab Gluc POC Comment 1) [facility] GLUCOSE [id number] 21:09:00 Test Item Value Reference Range Interpretation Comments Gluc POC (test code = Gluc POC) 194 70-99 H [facility] GLUCOSE [id number] 21:09:00 Test Item Value Reference Range Interpretation Comments Gluc POC Comment 1 (test code = Verify w/Lab Gluc POC Comment 1) [facility] GLUCOSE [id number] 21:09:00 Test Item Value Reference Range Interpretation Comments Gluc POC (test code = Gluc POC) 194 70-99 H [facility]
--- NOTE | 2023-03-13 18:13 | RAD REPORT ---
EXAM DESCRIPTION: CT - Head Brain Wo Cont - 03/13/2023 5:44 pm CLINICAL HISTORY: HEADACHE COMPARISON: Head Brain Wo Cont dated 12/07/2019; Facial Bones W/ Mpr dated 12/31/2016 TECHNIQUE: Noncontrast head CT images ad were obtained without IV contrast. Multiplanar reformats we re generated and reviewed. All CT scans are performed using dose optimization technique as appropriate and may include automated exposure control or mA/KV adjustment according to patient size. FINDINGS: No intracranial hemorrhage, mass, or edema. Midline structures are unremarkable. Normal ventricular caliber for age. Stable focus of near CSF density in the right basal ganglia region, may represent a small remote infa rct. Godinez-white matter differentiation is otherwise preserved, without evidence of acute infarct. No abnormal extra-axial fluid collections. Stable mild periventricular and deep white matter hypodensi ties, nonspecific could suggest chronic small vessel ischemic changes appear Mastoid air cells are well aerated. Patchy opacification of the ethmoidal air cells. . No acute bony findings. IMPRESSION: No evidence of an acute intracranial process. Stable chronic findings as above.
--- NOTE | 2023-03-13 18:55 | RAD REPORT ---
EXAM DESCRIPTION: US - Extremity Venous Uni Ltd - 03/13/2023 5:30 pm CLINICAL HISTORY: Swelling COMPARISON: None. TECHNIQUE: Real-time sonographic evaluation of the right lower extremity deep venous system was perf ormed. FINDINGS: Normal compressibility, flow augmentation, phasic flow and spontaneous flow is identified in the right lower extremity deep venous system. No intraluminal filling defects seen. IMPRESSION: No DVT in the right lower extremity.
--- NOTE | 2023-03-13 19:18 | ER ---
Nurse's Notes [facility] Name: Sharon Delgadillo Age: 78 yrs Sex: Female : 1945 Arrival Date: 03/13/2023 Time: 14:50 Bed 17 Private MD: Diagnosis: COPD/ Chronic obstructive pulmonary disease with (acute) exacerbation;Cellulitis and acute lymphangitis of other parts of limb-right lower extremity;Headache;Type 2 diabetes mellitus with hyperglycemia Presentation: 03/13 16:25 Chief complaint: Patient states: Sundays she had pain to her right [employer] . pain has iw persisted since then, her doctor was worried about an infection , also her RLE is red and swollen X 2weeks , also has been SOB. Coronavirus screen: At this time, the client does not indicate any symptoms associated with coronavirus-19. Ebola Screen: Patient negative for fever greater than or equal to 101.5 degrees Fahrenheit, and additional compatible Ebola Virus Disease symptoms Patient denies exposure to infectious person. Patient denies travel to an Ebola-affected area in the 21 days before illness onset. No symptoms or risks identified at this time. Initial Sepsis Screen: Does the patient meet any 2 criteria? No. Patient's initial sepsis screen is negative. Does the patient have a suspected source of infection? No. Patient's initial sepsis screen is negative. Risk Assessment: Do you want to hurt yourself or someone else? Patient reports no desire to harm self or others. Onset of symptoms was March 10, 2023. 16:25 Method Of Arrival: Ambulatory iw 16:25 Acuity: NELIDA 3 iw Triage Assessment: 19:15 General: Appears in no apparent distress. Behavior is calm, cooperative, appropriate vc1 for age. Respiratory: Reports shortness of breath Airway is patent Respiratory effort is even, unlabored, Respiratory pattern is regular, symmetrical, Onset: The symptoms/episode began/occurred gradually. Historical: - Allergies: 16:27 Morphine; iw - PMHx: 16:27 COPD; Hypertension; Diabetes - NIDDM; Hypothyroidism; iw - Immunization history:: Adult Immunizations. - Social history:: Smoking status: Patient denies any tobacco usage or history of. - Family history:: not pertinent. Screenin:00 [facility] ED Fall Risk Assessment (Adult) History of falling in the last 3 months, vc1 including since admission No falls in past 3 months (0 pts) Confusion or Disorientation No (0 pts) Intoxicated or Sedated No (0 pts) Impaired Gait No (0 pts) Mobility Assist Device Used Yes (1 pt) Altered Elimination No (0 pt) Score/Fall Risk Level 0 - 2 = Low Risk Oriented to surroundings, Maintained a safe environment, Educated pt \T\ family on fall prevention, incl call for assistance when getting out of bed. Abuse screen: Denies threats or abuse. Nutritional screening: No deficits noted. Tuberculosis screening: No symptoms or risk factors identified. Assessment: 19:00 Reassessment: Assumed care from Xiomara Medina RN. vc1 19:15 Pain: Complains of pain in right leg and left leg. Neuro: Level of Consciousness is vc1 awake, alert, obeys commands, Oriented to person, place, time, situation, Appropriate for age. Cardiovascular: Rhythm is sinus rhythm. Respiratory: Airway is patent Respiratory effort is even, unlabored, Breath sounds are clear. Respiratory: Reports shortness of breath the patient has mild shortness of breath. GI: No deficits noted. No signs and/or symptoms were reported involving the gastrointestinal system. : No deficits noted. No signs and/or symptoms were reported regarding the genitourinary system. EENT: No deficits noted. No signs and/or symptoms were reported regarding the EENT system. Derm: No deficits noted. No signs and/or symptoms reported regarding the dermatologic system. 20:00 Reassessment: No changes from previously documented assessment. Patient and/or family vc1 updated on plan of care and expected duration. Pain level reassessed. Patient is alert, oriented x 3, equal unlabored respirations, skin warm/dry/pink. 21:00 Reassessment: No changes from previously documented assessment. Patient and/or family vc1 updated on plan of care and expected duration. Pain level reassessed. Patient is alert, oriented x 3, equal unlabored respirations, skin warm/dry/pink. 22:00 Reassessment: No changes from previously documented assessment. Patient and/or family vc1 updated on plan of care and expected duration. Pain level reassessed. Patient is alert, oriented x 3, equal unlabored respirations, skin warm/dry/pink. 23:00 Reassessment: No changes from previously documented assessment. Patient and/or family vc1 updated on plan of care and expected duration. Pain level reassessed. Patient is alert, oriented x 3, equal unlabored respirations, skin warm/dry/pink. 03/14 15:17 Reassessment: Failed attempt to call report to 2nd floor, platform builder states nurse did eh3 not know she was getting a new pt and will call back for report later. 15:39 Reassessment: Nurse to nurse report received by Shauna on 2nd floor. [facility] Vital Signs: 03/13 16:25 BP 154 / 79; Pulse 98; Resp 20; Temp 98.1; Pulse Ox 98% on R/A; Weight 89.36 kg; Height iw 5 ft. 8 in. ; 21:00 BP 152 / 65; Pulse 82; Resp 17; Pulse Ox 98% ; vc1 23:00 BP 147 / 53; Pulse 88; Resp 19; Pulse Ox 94% ; vc1 16:25 Body Mass Index 29.95 (89.36 kg, 172.72 cm) iw ED Course: 15:15 Patient arrived in ED. kj1 15:15 Ronnie Pichardo MD is Attending Physician. rt 16:27 Triage completed. iw 16:27 Arm band placed on. iw 16:53 Chest Single View XRAY In Process Unspecified. EDMS 17:32 Extremity Venous Uni Ltd US In Process Unspecified. EDMS 17:46 CT Head Brain wo Cont In Process Unspecified. EDMS 18:37 Attending Physician role handed off by Ronnie Pichardo MD jeronimo 18:37 Owen Sargent MD is Attending Physician. jeronimo 19:14 José Miguel Wang is Hospitalizing Provider. jeronimo 20:09 Inserted saline lock: 20 gauge in right antecubital area, using aseptic technique. rv1 Blood collected. 20:09 Lactate w/ 2H reflex if indic. Sent. rv1 20:09 BNP Sent. rv1 20:09 Troponin High Sensitivity Sent. rv1 20:09 CMP Sent. rv1 20:09 CBC with Diff Sent. rv1 20:34 Radiology exam delayed due to IV insertion attempt and/or patient not having jg10 appropriate IV at this time. 21:00 Patient has correct armband on for positive identification. Placed in gown. Bed in low vc1 position. Call light in reach. Side rails up X2. Client placed on continuous cardiac and pulse oximetry monitoring. NIBP monitoring applied. 21:05 Inserted saline lock: 20 gauge in left antecubital area, using aseptic technique. Blood as6 collected. ultrasound guided, long catheter. 21:40 CT Head Angio In Process Unspecified. EDMS 21:40 CT Neck Angio In Process Unspecified. EDMS 21:40 Facial Bones W/ Con \T\ MPR CT In Process Unspecified. EDMS 23:30 No provider procedures requiring assistance completed. vc1 23:30 Patient admitted, IV remains in place. vc1 03/14 00:17 Parisa Toure, RN is Primary Nurse. vc1 07:00 Report received from Cindy Sierra RN. kc6 12:42 Attending Physician role handed off by Owen Sargent MD em1 12:42 Primary Nurse role handed off by Parisa Toure RN em1 12:53 Owen Sargent MD is Attending Physician. jeronimo 15:16 Janay Castro, RN is Primary Nurse. eh3 Administered Medications: 03/13 21:00 Drug: NS 0.9% IV 500 ml Route: IV; Rate: bolus; Site: left upper arm; vc1 21:29 Drug: ceFAZolin IVPB 2 grams Route: IVPB; Infused Over: 30 mins; Site: left upper arm; vc1 21:29 Drug: Trimethoprim-Sulfamethoxazole PO (160 mg-800 mg (DS) 1 tablet Route: PO; vc1 21:40 Follow up: Response: No adverse reaction vc1 Medication: 21:38 VIS not applicable for this client. vc1 Outcome: 19:17 Decision to Hospitalize by Provider. jeronimo 23:30 Admitted to ER Hold. Please see [facility] for further documentation. vc1 23:30 Condition: good 23:30 Instructed on the need for admit. 03/14 12:06 Patient left the ED. ll1 16:23 Patient left the ED. 3 Signatures: Dispatcher [employer] EDNY Owen Sargent MD MD cha Williams, Irene, RN Cornel Mckeon em1 Hayley Wright kj1 Nancy Sierra RN RN ll1 Hernando Loaiza RN RN as6 Parisa Toure RN RN vc1 Janay Castro RN RN 3 Padma Rodríguez RN RN [facility] Charity Medina [email or web address] [place], Ronnie, MD MD rt Romero, Keysha rv1
--- NOTE | 2023-03-13 19:18 | EDPHYS ---
Physician Documentation [facility] Name: Sharon Delgadillo Age: 78 yrs Sex: Female : 1945 Arrival Date: 03/13/2023 Time: 14:50 Bed 17 Private MD: ED Physician Owen Sargent HPI: 03/13 17:23 This 78 yrs old Female presents to ER via Ambulatory with complaints of Shortness Of rt Breath, Pain All Over, Leg Swelling. 17:23 Patient presents to the ED with multiple complaints. She states that she has been short rt of breath for some time. Patient also states that for the past week or more, she has had a swelling to the right lower extremity. The patient states that yesterday, she had a pain at her right congregational area radiating to her cheek that was acute in onset. Denies intensive support was on initiation, however, still persist. She did not take anything for symptoms, denies other acute complaints at this time including chest pain. Symptoms are moderate in severity, no other aggravating or alleviating factors.. Historical: - Allergies: 16:27 Morphine; iw - PMHx: 16:27 COPD; Hypertension; Diabetes - NIDDM; Hypothyroidism; iw - Immunization history:: Adult Immunizations. - Social history:: Smoking status: Patient denies any tobacco usage or history of. - Family history:: not pertinent. ROS: 17:23 Constitutional: Negative for fever, chills, and weight loss, Eyes: Negative for injury, rt pain, redness, and discharge, Neck: Negative for injury, pain, and swelling, Cardiovascular: Negative for chest pain, palpitations, and edema, Abdomen/GI: Negative for abdominal pain, nausea, vomiting, diarrhea, and constipation, Skin: Negative for injury, rash, and discoloration. 17:23 Respiratory: Positive for shortness of breath, Negative for cough. 17:23 MS/extremity: Positive for pain, swelling. 17:23 Neuro: Positive for headache, Negative for altered mental status. Exam: 17:23 Constitutional: This is a well developed, well nourished patient who is awake, alert, rt and in no acute distress. Head/Face: Normocephalic, atraumatic. Chest/axilla: Normal chest wall appearance and motion. Nontender with no deformity. No lesions are appreciated. Cardiovascular: Regular rate and rhythm with a normal S1 and S2. No gallops, murmurs, or rubs. Normal PMI, no JVD. No pulse deficits. Respiratory: Lungs have equal breath sounds bilaterally, clear to auscultation and percussion. No rales, rhonchi or wheezes noted. No increased work of breathing, no retractions or nasal flaring. Abdomen/GI: Soft, non-tender, with normal bowel sounds. No distension or tympany. No guarding or rebound. No evidence of tenderness throughout. Skin: Warm, dry with normal turgor. Normal color with no rashes, no lesions, and no evidence of cellulitis. Neuro: Awake and alert, GCS 15, oriented to person, place, time, and situation. Cranial nerves II-XII grossly intact. Motor strength 5/5 in all extremities. Sensory grossly intact. Cerebellar exam normal. Normal gait. Psych: Awake, alert, with orientation to person, place and time. Behavior, mood, and affect are within normal limits. 17:23 Musculoskeletal/extremity: Mild swelling to the right lower extremity, no cellulitic changes, full range of motion, pulses, motor, sensation intact. Vital Signs: 16:25 BP 154 / 79; Pulse 98; Resp 20; Temp 98.1; Pulse Ox 98% on R/A; Weight 89.36 kg; Height iw 5 ft. 8 in. ; 21:00 BP 152 / 65; Pulse 82; Resp 17; Pulse Ox 98% ; vc1 23:00 BP 147 / 53; Pulse 88; Resp 19; Pulse Ox 94% ; vc1 16:25 Body Mass Index 29.95 (89.36 kg, 172.72 cm) iw MDM: 16:24 Patient medically screened. rt 20:33 Differential diagnosis: Anemia asthma, Bronchitis Chronic Obstructive Pulmonary Disease jeronimo Myocardial Infarction pneumonia, reactive airway disease. Antibiotic administration: ancef, bactrim. Immunization status: Pneumococcal vaccine: Influenza vaccine: within last 5 years. Data reviewed: vital signs, nurses notes, lab test result(s), EKG, radiologic studies, CT scan, doppler. Consideration of Admission/Observation Patient was admitted/placed on observation. Escalation of care including admission/observation considered. I considered the following discharge prescriptions or medication management in the emergency department Medications were administered in the Emergency Department. See MAR. Test considered but Not performed: MRI: no mri brain. Care significantly affected by the following chronic conditions: Diabetes, Hypertension, Chronic Obstructive Pulmonary Disease, Obesity. Counseling: I had a detailed discussion with the patient and/or guardian regarding: the historical points, exam findings, and any diagnostic results supporting the discharge/admit diagnosis, the presence of at least one elevated blood pressure reading (>120/80) during this emergency department visit, lab results, radiology results, the need for further work-up and treatment in the hospital. 03/13 16:37 Order name: CBC with Diff; Complete Time: 20:33 rt 03/13 16:37 Order name: CMP; Complete Time: 20:33 rt 03/13 16:37 Order name: Troponin High Sensitivity; Complete Time: 20:33 rt 03/13 16:37 Order name: BNP; Complete Time: 20:33 rt 03/13 18:39 Order name: Urinalysis w/ reflexes [facility] 03/13 19:07 Order name: Blood Culture Adult (2) [facility] 03/13 19:07 Order name: Lactate w/ 2H reflex if indic.; Complete Time: 22:08 [facility] 03/13 19:13 Order name: PT-INR; Complete Time: 20:33 [facility] 03/13 22:27 Order name: COVID-19 SARS RT PCR sb4 03/13 22:27 Order name: Flu sb4 03/14 02:56 Order name: CBC with Automated Diff EDMN 03/14 03:14 Order name: Basic Metabolic Panel EDMN 03/14 03:14 Order name: Phosphorus EDMN 03/14 03:14 Order name: Lipid Profile EDMN 03/14 03:14 Order name: C-Reactive Protein EDMN 03/14 03:14 Order name: T4 Free EDMN 03/14 03:14 Order name: Magnesium EDMN 03/14 03:14 Order name: Thyroid Stimulating Hormone EDMN 03/14 07:28 Order name: Glucose, Ancillary Testing EDMN 03/13 16:37 Order name: Extremity Venous Uni Ltd US; Complete Time: 19:24 rt 03/13 16:37 Order name: Chest Single View XRAY; Complete Time: 20:02 rt 03/13 16:37 Order name: CT Head Brain wo Cont; Complete Time: 18:39 rt 03/13 18:39 Order name: CT Head Angio; Complete Time: 23:31 [facility] 03/13 19:07 Order name: CT Neck Angio; Complete Time: 23:31 jeronimo 03/13 20:49 Order name: Facial Bones W/ Con \T\ MPR CT; Complete Time: 23:31 sb4 03/13 16:37 Order name: EKG; Complete Time: 16:38 rt 03/13 16:37 Order name: EKG - Nurse/Tech; Complete Time: 21:39 rt Administered Medications: 21:00 Drug: NS 0.9% IV 500 ml Route: IV; Rate: bolus; Site: left upper arm; vc1 21:29 Drug: ceFAZolin IVPB 2 grams Route: IVPB; Infused Over: 30 mins; Site: left upper arm; vc1 21:29 Drug: Trimethoprim-Sulfamethoxazole PO (160 mg-800 mg (DS) 1 tablet Route: PO; vc1 21:40 Follow up: Response: No adverse reaction vc1 Disposition Summary: 03/13/23 19:17 Hospitalization Ordered Hospitalization Status: Observation jeronimo Provider: José Miguel Wang cha Condition: Fair jeronimo Problem: new jeronimo Symptoms: have improved jeronimo Bed/Room Type: Standard jeronimo Location: Telemetry/MedSurg (observation)(03/14/23 10:24) dw Room Assignment: 224(03/14/23 15:06) dw Diagnosis - COPD/ Chronic obstructive pulmonary disease with (acute) exacerbation jeronimo - Cellulitis and acute lymphangitis of other parts of limb - right lower extremity jeronimo - Headache jeronimo - Type 2 diabetes mellitus with hyperglycemia jeronimo Forms: - Medication Reconciliation Form jeronimo - SBAR form jeronimo Signatures: Dispatcher [employer] EDLula Le RN RN dw Anderson, Corey, MD MD cha Williams, Irene RN Cornel Mckeon em1 Carina Alarcon RN RN cg Calcote, Vanessa, RN RN vc1 Antoinette Yoon PAPop PAPpo sb4 Ronnie Pichardo MD MD rt Corrections: (The following items were deleted from the chart) 21:25 19:17 Telemetry/MedSurg (observation) jeronimo cg 21:25 19:17 jeronimo cg 03/14 10:24 03/13 21:25 [facility] ER HOLD cg dw 03/14 10:24 03/13 21:25 ERHOLD- cg 03/14 11:26 10:24 402 dw em1 15:06 11:26 em1 dw
--- NOTE | 2023-03-13 19:31 | RAD REPORT ---
EXAM DESCRIPTION: Yosit Single View03/13/2023 4:51 pm CLINICAL HISTORY: DYSPNEA COMPARISON: Chest Single View dated 12/07/2019; Chest Single View dated 04/10/2017; CHEST PA AND LAT 2 VIEW dated 07/14/2015; CHEST PA AND LAT 2 VIEW dated 02/02/2014 TECHNIQUE: Portable AP view of the chest. FINDINGS: The lungs are clear.Stable mildly prominent central interstitium. No pneumothorax or effus ion. The cardiomediastinal contours are unremarkable. IMPRESSION: Stable mild prominent central interstitium. No other acute findings.
[2023-03-13 20:08] LABS: Absolute Lymphocytes (CBC) 1.5 K/uL (0.7-4.9); Hematocrit 37.1 % (36.0-45.0); MPV 8.7 fL (7.6-11.3); Protime INR 0.93; RBC Red Blood Cell Count 4.76 M/uL (3.86-4.86)
[2023-03-13] MEDS ORDERED: CEFAZOLIN SODIUM 1 GM/VIAL ONE (20:13)
[2023-03-13] MEDS ORDERED: SMZ./TMP. 800/160 MG TABLET ONE (20:14)
[2023-03-13] MEDS ORDERED: NA CHLORIDE 0.9% 100 ML ONE (20:14)
[2023-03-13] MEDS ORDERED: NA CHLORIDE 0.9% 500 ML ONE (20:14)
[2023-03-13 20:23] LABS: Albumin 3.7 g/dL (3.4-5.0); Bilirubin Total 0.2 mg/dL (0.2-1.0); Potassium 3.5 mEq/L (3.5-5.1); Protein, Total 7.9 g/dL (6.4-8.2); Troponin High Sensitivity 8.2 pg/mL (<58.9)
--- NOTE | 2023-03-13 22:12 | RAD REPORT ---
EXAM DESCRIPTION: CT - CTFBWCON CLINICAL HISTORY: FACIAL PAIN COMPARISON: Head Brain Wo Cont dated 03/13/2023; Head Brain Wo Cont dated 12/07/2019; Neck Angio dated 03/13/2023; Head angio dated 03/13/2023 TECHNIQUE: Thin axial CT images of the face were obtained following intravenous administration of 97 mL Isovue 370. Multiplanar reformats were generated and reviewed. All CT scans are performed using dose optimization technique as appropriate and may include automated exposure control or mA/KV adjustment according to patient size. FINDINGS: No acute facial bone fracture is seen. No abnormal enhancement or inflammatory changes. Th e mandible is intact. No abnormal soft tissue swelling or enhancement with attention to the right temporalis fossa. The globes and orbital contents are grossly unremarkable, apart from sequelae of ocular lens replacem ents.Opacification of the right posterior ethmoidal air cells. Mild mucosal thickening in the left sp henoid sinus. IMPRESSION: No acute inflammatory process of the facial soft tissues. Up to moderate paranasal sinus mucosal thickening as above.
--- NOTE | 2023-03-13 22:16 | RAD REPORT ---
EXAM DESCRIPTION: CT - Head angio - 03/13/2023 9:38 pm CLINICAL HISTORY: HEADACHE COMPARISON: Facial Bones W Con Mpr dated 03/13/2023; Head Brain Wo Cont dated 03/13/2023; Head Brain Wo Cont dated 12/07/2019 TECHNIQUE: Axial CT angiography images of the head was performed with multiplanar and maximum intens ity projection reconstructions. Images performed following intravenous administration of 97mL Isovue 370. All CT scans are performed using dose optimization technique as appropriate and may include automated exposure control or mA/KV adjustment according to patient size. FINDINGS: Right posterior cerebral artery is of markedly diminutive caliber throughout. No other natali dence of large vessel occlusion. No evidence of aneurysm or dissection flap is detected. No flow-limi ting stenosis or vascular malformation identified. Antegrade flow is seen in the vertebral arteries. The vertebral arteries are codominant. The visualized dural venous sinuses are grossly patent. IMPRESSION: Diminutive caliber of the right posterior cerebral artery, favored to be a chronic findi ng. No other evidence of large vessel occlusion or flow-limiting stenosis.
--- NOTE | 2023-03-13 22:22 | RAD REPORT ---
EXAM DESCRIPTION: CT - Neck Angio - 03/13/2023 9:38 pm CLINICAL HISTORY: PAIN COMPARISON: Head C Spine Mpr Wo Con dated 12/31/2016; [id number] dated 05/09/2014 TECHNIQUE: Axial CT angiography images of the head was performed with multiplanar and maximum intens ity projection reconstructions. Images performed following intravenous administration of 97mL Isovue 370. All CT scans are performed using dose optimization technique as appropriate and may include automated exposure control or mA/KV adjustment according to patient size. Quantification of carotid stenosis, if any, is performed according to NASCET criteria. FINDINGS: A left aortic arch is identified with variant morphology with the left vertebral artery ar ising as the third vessel from the arch. No significant flow abnormality is seen of the common carotid bilaterally. Moderate atherosclerotic plaque formation at the left carotid bifurcation, with narrowing of the left ICA origin, with narrowest diameter measuring 2 millimeter compared to 4.8 millimeter more distally, amounting to 58% stenosis by NASCET criteria. Mild to moderate atherosclerotic calcific plaque forma tion at the right carotid bifurcation, with plaque surface irregularity and mild ulceration, without significant stenosis. Normal flow is seen within both vertebral arteries. IMPRESSION: Moderate atherosclerotic plaque formation with 50% stenosis at the left ICA origin. No other significant stenosis of the neck vessels.
--- NOTE | 2023-03-13 22:55 | P.HP ---
Certification for Inpatient Patient admitted to: Observation With expected LOS: <2 Midnights Patient will require the following post-hospital care: None Practitioner: I am a practitioner with admitting privileges, knowledge of patient current condition, hospital course, and medical plan of care. Services: Services provided to patient in accordance with Admission requirements found in Title 42 Section 412.3 of the Code of Federal Regulations Patient History Date of Service: 03/13/23 Primary Care Provider: Vinicio Reason for admission: Weakness History of Present Illness: Ms. Delgadillo is an 78-year-old female with past medical history of hypertension, coronary artery disease, hypothyroidism, type 2 diabetes, and spinal stenosis who presented to the emergency department with complaints of shortness of breath, weakness, leg swelling, and headache. Patient was evaluated by her PCP, Dr. Mooney, today who sent her to the ED to be evaluated as he thought she appeared unwell. She states that she has a back right molar cavity that she is supposed to be getting removed next week and is having a lot of pain on her right temporal area with radiation down her neck as a result. She also states that she has been a lot weaker than usual, cannot ambulate as is her baseline. Her work-up is unremarkable today. Chest x-ray shows chronic changes. Labs within normal limits, except for slight dehydration. Imaging was done, bilateral venous US, head CT, head and neck CTA, and facial bone CTall which did not show anything that could explain her symptoms. Urine and COVID/flu are pending. ED provider covered her with antibiotics for possible infection. Blood cultures were additionally obtained. ED provider wishes to admit patient for observation. Allergies Morphine Allergy (Uncoded 03/12/16 16:44) Unknown Home medications list reviewed: Yes Home Medications: Aspirin [Aspirin EC 81 MG] 81 mg PO DAILY 12/18/11 Carvedilol [Coreg] 9.375 mg PO BID 12/18/11 Fluoxetine HCl [Prozac] 20 mg PO DAILY 12/18/11 Levothyroxine Sodium [Synthroid] 0.075 mg PO ACB 12/18/11 Losartan/Hydrochlorothiazide [Losartan-Hctz 100-25 mg Tab] mg PO DAILY 12/18/11 Metformin HCl [Glucophage] 500 mg PO BIDWM 12/18/11 Omeprazole Magnesium [Prilosec Otc] 20 mg PO BIDAC 12/18/11 Simvastatin [Zocor] 20 mg PO SUPPER 12/18/11 Cholecalciferol (Vitamin D3) [Vitamin D] 1,000 unit PO DAILY 04/02/12 Hydrocodone/Acetaminophen [[place] 5-325 Tablet] 1 each PO QIDP PRN #0 tablet 04/04/12 Methocarbamol [Robaxin] 500 mg PO TIDP PRN #0 tablet 04/04/12 - Past Medical/Surgical History Diabetic: Yes -: Type 2 Diabetes, Non-Insulin Dependent -: Hypertension -: Hypothyroidism -: Hyperlipidemia -: CVA -: Spinal Stenosis -: Coronary Artery Disease -: Right knee replacement -: Appendectomy -: Cholecystectomy -: Hysterectomy Psychosocial/ Personal History: Patient lives at home with her daughter. - Family History Father -: Heart disease Mother -: Heart disease, Diabetes, Stroke Sister -: Diabetes, Cancer - Social History Smoking Status: Former smoker Alcohol use: No CD- Drugs: No Caffeine use: Yes Place of Residence: Home Review of Systems General: Weakness, Other (Head pain) Cardiovascular: Edema Musculoskeletal: Neck Pain Physical Examination - Vital Signs Temperature: 98.1 F Blood Pressure: 152/65 Pulse: 82 Respirations: 17 Pulse Ox (%): 98 - Physical Exam General: Alert, In no apparent distress HEENT: Atraumatic, EOMI, Sclerae nonicteric Neck: Supple, 2+ carotid pulse no bruit Respiratory: Clear to auscultation bilaterally, Normal air movement Cardiovascular: Regular rate/rhythm, Normal S1 S2 Gastrointestinal: Normal bowel sounds, No tenderness Musculoskeletal: No tenderness Integumentary: No breakdown, Erythema (right ankle) Neurological: Normal speech, Normal affect - Studies Laboratory Data (last 24 hrs) 03/13/23 19:35: PT 10.2, INR 0.93 03/13/23 19:35: Sodium 133 L, Potassium 3.5, BUN 19 H, Creatinine 0.90, Glucose 270 H, Total Bilirubin 0.2, AST 10 L, ALT 22, Alkaline Phosphatase 80 03/13/23 19:35: WBC 6.60, Hgb 12.1, Hct 37.1, Plt Count 238 Assessment and Plan - Problems (Diagnosis) (1) Generalized weakness Current Visit: Yes Status: Acute (2) Dehydration Current Visit: Yes Status: Acute (3) COPD (chronic obstructive pulmonary disease) Current Visit: Yes Status: Chronic Qualifiers: COPD type: emphysema Emphysema type: centrilobular Qualified Code(s): J43.2 - Centrilobular emphysema (4) Hypothyroidism Current Visit: Yes Status: Chronic Qualifiers: Hypothyroidism type: unspecified Qualified Code(s): E03.9 - Hypothyroidism, unspecified (5) Hypertension Current Visit: Yes Status: Chronic Qualifiers: Hypertension type: primary hypertension Qualified Code(s): I10 - Essential (primary) hypertension (6) Type 2 diabetes mellitus Current Visit: Yes Status: Chronic Qualifiers: Diabetes mellitus exterminator termite insulin use: without exterminator termite use Diabetes mellitus complication status: with hyperglycemia Qualified Code(s): E11.65 - Type 2 diabetes mellitus with hyperglycemia (7) Coronary artery disease Current Visit: Yes Status: Chronic Qualifiers: Coronary Disease-Associated Artery/Lesion type: [place] artery [place] vs. transplanted heart: [place] heart Associated angina: without angina Qualified Code(s): I25.10 - Atherosclerotic heart disease of [place] coronary artery without angina pectoris - Plan Patient is admitted for further management of generalized weakness, dehydration, and dyspnea. Continue IV fluids for dehydration. Consult physical therapy. Check thyroid panel as this could be contributing to her fatigue/weakness, she states that her medication was recently changed. Consider MRI if head pain persist. Likely just related to her cavity/broken right molar. Blood cultures were obtained and she did receive cefazolin and Bactrim in the emergency department. O2 satisfactory on room air. Monitor closely. Breathing treatments as needed for dyspnea. ACHS accu checks with mild sliding scale and diabetic diet. Check a1c and lipid panel. She does have some mild redness to her right ankle that she states waxes and wanes. She denies pain. Ultrasound negative for DVT. Monitor and replete electrolytes per protocol Reconcile continue home medications. Discharge Plan: Home Plan to discharge in: 24 Hours - Advance Directives Does patient have a Living Will: Yes Does patient have a Durable POA for Healthcare: Yes - Code Status/Comfort Care Code Status Assessed: Yes Code Status: Full Code Physician Review: Patient Assessed, Agree with Above Assessment and Plan Critical Care: No Time Spent Managing Pts Care (In Minutes): 50
[2023-03-13] MEDS ORDERED: ACETAMINOPHEN 500 MG TAB PO PRN (23:44)
[2023-03-13] MEDS ORDERED: ONDANSETRON 4 MG/2 ML VIAL IV PRN (23:44)
[2023-03-13] MEDS ORDERED: ALBUTEROL 2.5 MG/3 ML NEB SOL NEB PRN (23:44)
[2023-03-14 00:07] VITALS: BMI 29.9
[2023-03-14 02:54] LABS: Absolute Lymphocytes (CBC) 1.4 K/uL (0.7-4.9); Hematocrit 32.3 % (36.0-45.0); Lymphocytes % 24.5 % (15.3-44.8); MCV 77.5 fL (80-100); RBC Red Blood Cell Count 4.17 M/uL (3.86-4.86)
[2023-03-14 03:13] LABS: C-Reactive Protein 16.6 mg/L (<3.00); Magnesium 1.6 mg/dL (1.6-2.4); Phosphorus 3.5 mg/dL (2.5-4.9); Potassium 3.3 mEq/L (3.5-5.1); Thyroid Stimulating Hormone 0.903 uIU/mL (0.358-3.740)
[2023-03-14] MEDS ORDERED: POTASSIUM CL SA 10 MEQ TAB PO ONE ×2 (07:12→07:33)
[2023-03-14] MEDS: INSULIN -REGULAR HUMAN 50 UNIT/0.5 ML ML SQ SCH ×4 (07:30→21:16)
[2023-03-14] MEDS ORDERED: INSULIN -REGULAR HUMAN 50 UNIT/0.5 ML ML ONE (07:34)
--- NOTE | 2023-03-14 11:08 | P.DS ---
Admission Date: 03/13/23 Discharge Date: 03/14/23 Primary Care Provider: Vinicio Disposition: ROUTINE DISCHARGE Discharge Condition: FAIR Reason for Admission: Weakness - Problems (1) Headache Current Visit: Yes Status: Acute (2) Peripheral neuropathy Current Visit: Yes Status: Acute (3) Generalized weakness Current Visit: Yes Status: Acute (4) Hypertension Current Visit: Yes Status: Chronic Qualifiers: Hypertension type: primary hypertension Qualified Code(s): I10 - Essential (primary) hypertension (5) Hypothyroidism Current Visit: Yes Status: Chronic Qualifiers: Hypothyroidism type: unspecified Qualified Code(s): E03.9 - Hypothyroidism, unspecified (6) Type 2 diabetes mellitus Current Visit: Yes Status: Chronic Qualifiers: Diabetes mellitus long term care social worker insulin use: without fpc use Diabetes mellitus complication status: with hyperglycemia Qualified Code(s): E11.65 - Type 2 diabetes mellitus with hyperglycemia Brief History of Present Illness: Ms. Delgadillo is an 78-year-old female with past medical history of hypertension, coronary artery disease, hypothyroidism, type 2 diabetes, and spinal stenosis who presented to the emergency department with complaints of shortness of breath, weakness, leg swelling, and headache. Patient was evaluated by her PCP, Dr. Mooney,who sent her to the ED to be evaluated as he thought she appeared unwell. She states that she has a right lower molar cavity that she is supposed to be getting removed next week and is having a lot of pain on her right temporal area with radiation down her neck as a result. She reported feeling a lot weaker than usual, could not ambulate as is her baseline. Her work-up was unremarkable. Chest x-ray shows chronic changes. Labs within normal limits, except for slight dehydration. Imaging was done, bilateral venous US, head CT, head and neck CTA, and facial bone CTall which did not show anything that could explain her symptoms. Blood cultures were additionally obtained. Patient hospi talized for further management. Hospital Course: Patient placed on observation medical floor. She reported throbbing headache on the right half of her face, no visual disturbance. Patient's pain deemed to be related to her dental cavity versus migraine. Patient was functionally better this morning, she is ambulatory with a cane, states that her headache has improved. Vitals have been stable. Work-up has been negative so far. She tolerated her diet. MRI of the brain was considered but patient has multiple metal implants including dental implants which precluded MRI. She currently has stable vitals. She is discharged to follow-up with her PCP. Vital Signs/Physical Exam: Temp Pulse Resp BP Pulse Ox 98.0 F 79 16 157/56 H 98 03/14/23 08:00 03/14/23 08:00 03/14/23 08:00 03/14/23 08:00 03/14/23 08:00 General: Alert, In no apparent distress, Oriented x3 HEENT: Mucous membr. moist/pink Neck: Supple, JVD not distended Respiratory: Clear to auscultation bilaterally, Normal air movement Cardiovascular: No edema, Regular rate/rhythm, Normal S1 S2 Capillary refill: <2 Seconds Gastrointestinal: Normal bowel sounds, Soft and benign, Non-distended Musculoskeletal: No swelling Integumentary: No breakdown Neurological: Normal strength at 5/5 x4 extr Laboratory Data at Discharge: WBC 5.50 thou/uL (4.3-10.9) 03/14/23 02:02 Hgb 10.6 g/dL (12.0-15.0) L D 03/14/23 02:02 Hct 32.3 % (36.0-45.0) L 03/14/23 02:02 Plt Count 189 thou/uL (152-406) 03/14/23 02:02 PT 10.2 SECONDS (9.5-12.5) 03/13/23 19:35 INR 0.93 03/13/23 19:35 Sodium 137 mEq/L (136-145) D 03/14/23 02:02 Potassium 3.3 mEq/L (3.5-5.1) L 03/14/23 02:02 BUN 16 mg/dL (7-18) 03/14/23 02:02 Creatinine 0.93 mg/dL (0.55-1.02) 03/14/23 02:02 Glucose 311 mg/dL (74-106) H 03/14/23 02:02 Phosphorus 3.5 mg/dL (2.5-4.9) 03/14/23 02:02 Magnesium 1.6 mg/dL (1.6-2.4) 03/14/23 02:02 Total Bilirubin 0.2 mg/dL (0.2-1.0) 03/13/23 19:35 AST 10 U/L (15-37) L 03/13/23 19:35 ALT 22 U/L (13-56) 03/13/23 19:35 Alkaline Phosphatase 80 U/L (45-117) 03/13/23 19:35 Triglycerides 186 mg/dL (<150) H 03/14/23 02:02 Cholesterol 174 mg/dL (<200) 03/14/23 02:02 HDL Cholesterol 40 mg/dL (40-60) 03/14/23 02:02 Cholesterol/HDL Ratio 4.35 03/14/23 02:02 Home Medications: Aspirin [Aspirin EC 81 MG] 81 mg PO DAILY 12/18/11 Carvedilol [Coreg] 9.375 mg PO BID 12/18/11 Fluoxetine HCl [Prozac] 20 mg PO DAILY 12/18/11 Levothyroxine Sodium [Synthroid] 0.075 mg PO ACB 12/18/11 Losartan/Hydrochlorothiazide [Losartan-Hctz 100-25 mg Tab] mg PO DAILY 12/18/11 Metformin HCl [Glucophage] 500 mg PO BIDWM 12/18/11 Omeprazole Magnesium [Prilosec Otc] 20 mg PO BIDAC 12/18/11 Simvastatin [Zocor] 20 mg PO SUPPER 12/18/11 Cholecalciferol (Vitamin D3) [Vitamin D] 1,000 unit PO DAILY 04/02/12 Hydrocodone/Acetaminophen [[place] 5-325 Tablet] 1 each PO QIDP PRN #0 tablet 04/04/12 Methocarbamol [Robaxin] 500 mg PO TIDP PRN #0 tablet 04/04/12 Amox/Clavulanate [Augmentin 875-125 Tab] 1 each PO BID #14 tab 03/14/23 New Medications: Amox/Clavulanate [Augmentin 875-125 Tab] 1 each PO BID #14 tab Diet: ADA Activity: Fall precautions Followup: JOY HAMILTON [Primary Care Provider] - 1-2 Weeks Time spent managing pt's care (in minutes): 33
--- NOTE | 2023-03-14 11:22 | EKG ---
Test Date: 2023-03-13 Test Time: 21:15:38 Senior Water/Wastewater Engineer: RV MEASUREMENT RESULTS: Intervals: Rate: 83 MD: 158 QRSD: 126 QT: 414 QTc: 486 [place]: P: 69 MD: 158 QRS: 21 T: 60 INTERPRETIVE STATEMENTS: Normal sinus rhythm Right bundle branch block Abnormal ECG Compared to ECG 12/07/2019 18:54:18 No significant changes Electronically Signed On 03-14-23 11:20:02 CDT by Bakari Gonzalez
[2023-03-14] MEDS: predniSONE 20 MG TAB PO SCH (14:31)
[2023-03-14] MEDS: carBAMazepine 200 MG TAB PO SCH (14:31)
[2023-03-14] MEDS ORDERED: predniSONE 20 MG TAB ONE (15:08)
[2023-03-14] MEDS ORDERED: carBAMazepine 200 MG TAB ONE (15:08)
--- NOTE | 2023-03-14 15:42 | P.PN ---
Subjective Date of Service: 03/14/23 Primary Care Provider: Vinicio Chief Complaint: Weakness Patient reports some improvement in her right-sided headache. She was seen ambulating with a cane in the ED. She denies any new visual disturbance, she denies any photophobia. She denies any dizziness. Physical Examination - Vital Signs Temperature: 98.1 F Blood Pressure: 147/53 Pulse: 88 Respirations: 19 Pulse Ox (%): 98 - Studies Laboratory Data (last 24 hrs) 03/13/23 19:35: PT 10.2, INR 0.93 03/13/23 19:35: Sodium 133 L, Potassium 3.5, BUN 19 H, Creatinine 0.90, Glucose 270 H, Total Bilirubin 0.2, AST 10 L, ALT 22, Alkaline Phosphatase 80 03/13/23 19:35: WBC 6.60, Hgb 12.1, Hct 37.1, Plt Count 238 Assessment And Plan - Current Problems (Diagnosis) (1) Headache Current Visit: Yes Status: Acute (2) Peripheral neuropathy Current Visit: Yes Status: Acute (3) Generalized weakness Current Visit: Yes Status: Acute (4) Hypertension Current Visit: Yes Status: Chronic Qualifiers: Hypertension type: primary hypertension Qualified Code(s): I10 - Essential (primary) hypertension (5) Hypothyroidism Current Visit: Yes Status: Chronic Qualifiers: Hypothyroidism type: unspecified Qualified Code(s): E03.9 - Hypothyroidism, unspecified (6) Type 2 diabetes mellitus Current Visit: Yes Status: Chronic Qualifiers: Diabetes mellitus ferry terminal supervisor insulin use: without ferry terminal supervisor use Diabetes mellitus complication status: with hyperglycemia Qualified Code(s): E11.65 - Type 2 diabetes mellitus with hyperglycemia - Plan Physical Exam General: Alert, In no apparent distress HEENT: Atraumatic, EOMI, Sclerae nonicteric. Right parietal area is tender to palpation, no temporal artery tenderness. Temporal artery pulsation is intact. Neck: Supple, 2+ carotid pulse no bruit Respiratory: Clear to auscultation bilaterally, Normal air movement Cardiovascular: Regular rate/rhythm, Normal S1 S2 Gastrointestinal: Normal bowel sounds, No tenderness Musculoskeletal: No tenderness Integumentary: No breakdown, Erythema (right ankle) Neurological: Normal speech, Normal affect. No focal motor deficits. Plan: Patient with unexplained elevated CRP. She reports right lower molar cavity for which she is following a dental surgeon for surgery. She is attributing her headache to the molar cavity. Patient described 10/10 right-sided throbbing headache at onset, pain radiating to the right jaw, no new visual disturbance, no fever. No shoulder girdle or pelvic girdle pain. Unexplained elevated CRP. Given her age, unexplained CRP, unilateral headache with associated tenderness in the parietal area, we need to rule out temporal arteritis. General surgery Dr. Yu consulted for temporal artery biopsy. Neurology consulted, I spoke to Dr. Garza who recommended prednisone for temporal arteritis, Tegretol for possible neuralgia. Patient was started on prednisone 60 mg daily and Tegretol 200 mg daily. N.p.o. for possible biopsy tomorrow. Generalized weakness significantly improved. PT evaluated patient. Continue PT as needed.
[2023-03-14] MEDS ORDERED: PNEUMOCOCCAL VACCINE 0.5 ML IMVAC ONE (18:00)
[2023-03-15 06:25] LABS: Potassium 4.3 mEq/L (3.5-5.1)
[2023-03-15] MEDS: INSULIN -REGULAR HUMAN 50 UNIT/0.5 ML ML SQ SCH ×4 (07:30→21:11)
[2023-03-15] MEDS: predniSONE 20 MG TAB PO SCH ×2 (09:00→09:46)
[2023-03-15] MEDS: VITAMIN D 1000 UNIT TAB PO SCH (09:00)
[2023-03-15] MEDS ORDERED: HOME MED 1 EA UNK (Omeprazole Magnesium [Prilosec Otc] 20 MG Tablet.Dr) PO SCH (09:00)
[2023-03-15] MEDS ORDERED: HOME MED 1 EA UNK (Levothyroxine Sodium [Tirosint] 37.5 MCG Capsule) PO SCH (09:00)
[2023-03-15] MEDS: carBAMazepine 200 MG TAB PO SCH (09:00)
[2023-03-15] MEDS: PANTOPRAZOLE 40MG TABLET PO SCH (09:00)
[2023-03-15] MEDS: INSULIN GLARGINE 100 UNIT/ML SQ SCH (09:42)
[2023-03-15] MEDS: carvediloL 3.125 MG TAB PO SCH ×2 (09:43→21:10)
[2023-03-15] MEDS: LEVOTHYROXINE SOD 0.075 MG TAB PO SCH (09:43)
--- NOTE | 2023-03-15 10:06 | PREOPCON ---
Date of Consultation: 03/14/2023 Reason For Consultation: Patient needs temporal artery biopsy. History Of Present Illness: Patient is an 78-year-old female, who presented to the emergency room wi weakness and right-sided parietal headaches, acute onset and radiating down to the neck. She had CT of the head, neck CTA, facial bone CT, all of which did not explain her symptoms. Patient also souza d a C-reactive protein ordered which was elevated at 16.6. Concern was made after neurology evaluati on that patient may have temporal arteritis and I was consulted. Patient is awake, alert. Denies an y vision changes at this time. No sore throat, runny nose, cough, headaches, or dizziness. No chest pain. No fevers or chills. Review of Systems: Otherwise, unremarkable. Past Medical History: Type 2 diabetes, hypertension, hypothyroidism, strokes, spinal stenosis, coron kellee artery disease. Past Surgical History: Right knee replacement, appendectomy, cholecystectomy, hysterectomy. Allergies: INCLUDES MORPHINE. Social History: Patient used to smoke in the past, does not currently. Family History: Significant for heart disease, diabetes, and stroke and unknown type of cancer in th e sister. Physical Examination: Vital Signs: Stable. She is currently afebrile. She is awake, alert, and oriented x3. Head and Neck: No masses. Cranial nerves 2 through 12 are grossly within normal limits. Throat carley ar. Neck is supple. Chest: Clear. Heart: S1 and S2. Abdomen: Soft. Extremities: Neurovascularly intact Neuro: Nonfocal. Diagnostic Data: Reviewed. C-reactive protein is 16.6. Assessment: Right-sided headaches with elevated C-reactive protein, rule out temporal arteritis. Recommendations: We will proceed with a right temporal artery biopsy. The patient understands the r isks, benefits, and alternatives and agrees to procedure. /MODL Voice ID: [id number] Report ID: [id number]
[2023-03-15] MEDS ORDERED: ALBUTEROL 2.5 MG/3 ML NEB SOL NEB PRN (13:00)
--- NOTE | 2023-03-15 13:34 | CON ---
Reason For Consultation: Consultation called because of right yarsanism pain, possibility of temporal a rteritis versus trigeminal neuralgia. History Of Present Illness: Ms. Delgadillo is an 78-year-old patient who originally came on 03/13/2023 to [facility] with worsening shortness of breath, diffuse weakness, leg swelling, and headac he, which is the reason I am consulted. She said the headache is actually was severe pain that start ed in the right yarsanism as though something just immediately hit her in the right area, pain moved esperanza nward to jaw, neck and head, and was severe. She was slated to have a right molar removed and has be en having pain in that area and that pain has been radiating. This pain seemed higher up than the lo cation that it was superior and slightly inferior to the right ear. Her evaluation included head and neck CT scan, which showed no acute ischemic hemorrhagic change and CT scan showed no chronic findin gs. Her CT of the facial bones did not show any fractures. She had blood work which was initially u nremarkable in terms of complete blood count with differential, but she did receive hydration and hem oglobin went from 12.1 to 10.6. INR normal at 0.9. Her sodium 135, potassium 4.3, chloride 106, car bon dioxide 26, BUN 21, creatinine 0.81. Given the possibility that the right temporal pain and some vision change, which patients says blurred vision may be due to temporal arteritis. She was started on steroids at 6 mg daily. She did have diabetes, however, blood sugars have been somewhat more lubna vated at 389 at max . She is on insulin sliding scale and has continued. She is also on T egretol for the neuralgia and duloxetine 20 mg as well daily. She still has ongoing pain, but is significantly less in the right facial region. She is slated for a temporal artery biopsy by Dr. Yu this afternoon. Past Medical History: Type 2 diabetes, non-insulin dependent, hypertension, hypothyroidism, dyslipid emia, and stroke with good recovery. She has spinal stenosis involving the upper and lower spine. S he is receiving injections in the back by Dr. Kang. She has coronary artery disease. Past Surgical History: Right knee replacement, appendectomy, cholecystectomy, hysterectomy. Social History: The patient lives at home with her daughter. No current alcohol, tobacco, or drug u se. She smoked in the past. Family History: Heart disease in father and mother. Diabetes and stroke in mother as well. A siste r with cancer and diabetes. Home Medications: Aspirin 81 mg daily, Coreg 9.375 mg twice daily, Prozac 20 mg daily, Synthroid 0.0 75 mg daily, hydrochlorothiazide and losartan 100/25 daily, Glucophage 500 mg twice daily, Prilosec O TC 20 mg twice daily, Zocor 20 mg at night, vitamin D3 1000 units daily, [place] 5/325 every 6 hours as needed, and Robaxin 500 mg 3 times daily as needed. Review of Systems: As noted. There is pain in the right temporal region. Some visual blurring and diffuse weakness. N o focal weakness in the face, arm, or leg. No sensory loss [id number]. Physical Examination: Vital Signs: Blood pressure 197/78, pulse 97, respiratory rate 16, temperature 97, oxygen saturation 98% on room air. General: Ms. Delgadillo is resting comfortably in bed. She appears in no acute distress. HEENT: She is normocephalic, atraumatic. Sclerae anicteric. Oropharynx is pink and moist. Neck: Supple. Chest: Clear. Heart: Regular. Extremities: Show no significant edema, swelling or cyanosis. Neurological: Tenderness to palpation in the right temporal region. No pulsatile temporal artery pa lpated. Cranial nerves show no focal deficits on 2 through 12. Motor exam: She has no focal defici ts in terms of strength, asymmetry. Sensation is intact in upper and lower extremities. Coordinatio n intact in upper and lower extremities. Reflexes are symmetric. Her LDL cholesterol 97, HDL 40. L iver function studies unremarkable. C-reactive protein is elevated to 16.6 that is on 03/14/2023. Assessment: Ms. Delgadillo is an 78-year-old patient with possible right temporal arthritis. She is on steroids at 6 mg daily and does have diabetes with without any blood sugars. She is on sliding scal e of insulin and metformin 500 b.i.d. She has uncontrolled hypertension at this point. She has Core g on board and may require adjustment in the dosage. She has Tegretol 200 mg daily for trigeminal neuralgia, duloxetine also 200 mg daily. She is being g iven SEMGLEE insulin 10 units subcutaneously daily to help manage her blood sugars as she is on stero ids since she has nebulizers. For hypothyroidism, she is on Synthroid mg daily. She has Protonix for GE reflux and prednisone is 60 mg daily for presumed temporal arteritis. The patient will be followed while in hospital. CALLY/CAN Voice ID: [id number] Report ID: [id number]
[2023-03-15] MEDS ORDERED: NA CHLORIDE 0.9% 1,000 ML ONE (15:25)
[2023-03-15] MEDS ORDERED: CEFAZOLIN SODIUM 1 GM/VIAL ONE (15:27)
[2023-03-15] MEDS ORDERED: LIDOCAINE HCL/EPINEPHRINE 20 ML MDV ONE (15:54)
[2023-03-15] MEDS ORDERED: LIDOCAINE 1% 20 ML MDV ONE (15:54)
[2023-03-15] MEDS ORDERED: FENTANYL CITR 100 MCG/2 ML ONE (17:14)
[2023-03-15] MEDS ORDERED: propofoL 200 MG/20 ML VIAL IV ONE (17:15)
[2023-03-15] MEDS ORDERED: LIDOCAINE 2% MPF 5 ML VIAL ONE (17:15)
[2023-03-15] MEDS ORDERED: Mastisol Adhesive Liq ONE (17:50)
--- NOTE | 2023-03-15 17:55 | P.OP ---
Date of Service: 03/15/23 Preop diagnosis: Right-sided headache, rule out temporal arteritis Postop diagnosis: Same Procedure performed: Doppler aided right temporal artery biopsy Surgeon: Sukhdev Yu MD Call Center Nurse: Elisa HUBBARD Estimated blood loss: Minimal Specimen: Right temporal artery Findings: As above Anesthesia: MAC Complications: None Drains: None Fluids and blood products: Nonapplicable Disposition: Recovery room Operative note: Patient brought to the OR and placed in supine position. MAC anesthesia begun. Patient prepped and draped in usual sterile fashion. Doppler device utilized to isolate a branch of the right temporal artery. Lidocaine 1% infiltrated locally. 15 blade used to make a 4 cm incision over the artery. Subcutaneous tissue divided and artery identified. Bleeding controlled with cautery. Branch of the temporal artery identified and proximal and distal control obtained. 4 cm segment of the temporal artery excised and sent to pathology as specimen. Both ends tied with 4-0 silk. Wound irrigated and bleeding controlled cautery. 4-0 chromic used to reapproximate subcutaneous tissue and close skin. Sterile dressing applied and patient awakened. Patient taken to recovery room in good general condition. CC: Dr. Garza's office
[2023-03-15] MEDS ORDERED: HYDROCODONE/APAP 5/325 MG TAB PO PRN (18:01)
--- NOTE | 2023-03-15 18:08 | P.PN ---
Subjective Date of Service: 03/15/23 Primary Care Provider: Vinicio Chief Complaint: Weakness Patient report persistent headache. She is ambulatory. No issues overnight. Physical Examination - Vital Signs Temperature: 99.3 F Blood Pressure: 173/68 Pulse: 88 Respirations: 16 Pulse Ox (%): 100 - Studies Microbiology Data (last 24 hrs): 03/13/23 16:48 Nasopharnyx Influenza Type A Antigen Screen - Final 03/13/23 16:48 Nasopharnyx Influenza Type B Antigen Screen - Final Assessment And Plan - Current Problems (Diagnosis) (1) Headache Current Visit: Yes Status: Acute (2) Peripheral neuropathy Current Visit: Yes Status: Acute (3) Generalized weakness Current Visit: Yes Status: Acute (4) Hypertension Current Visit: Yes Status: Chronic Qualifiers: Hypertension type: primary hypertension Qualified Code(s): I10 - Essential (primary) hypertension (5) Hypothyroidism Current Visit: Yes Status: Chronic Qualifiers: Hypothyroidism type: unspecified Qualified Code(s): E03.9 - Hypothyroidism, unspecified (6) Type 2 diabetes mellitus Current Visit: Yes Status: Chronic Qualifiers: Diabetes mellitus snf insulin use: without intermediate school teacher use Diabetes mellitus complication status: with hyperglycemia Qualified Code(s): E11.65 - Type 2 diabetes mellitus with hyperglycemia - Plan Physical Exam General: Alert, In no apparent distress HEENT: Atraumatic, EOMI, Sclerae nonicteric. Respiratory: Clear to auscultation bilaterally, Normal air movement Cardiovascular: Regular rate/rhythm, Normal S1 S2 Gastrointestinal: Normal bowel sounds, No tenderness Musculoskeletal: No tenderness Neurological: Normal speech, Normal affect. No focal motor deficits. Plan: Patient with unexplained elevated CRP. She reports right lower molar cavity for which she is following a dental surgeon for surgery. General surgery Dr. Yu consulted for temporal artery biopsy. Status post temporal artery biopsy today Neurology consulted, I spoke to Dr. Garza who recommended prednisone for temporal arteritis, Tegretol for possible neuralgia. Patient seen and evaluated by neurology Continue prednisone 60 mg daily and Tegretol 200 mg daily. Patient is currently ambulatory. Possible discharge in a.m.
[2023-03-15] MEDS ORDERED: DULOXETINE 20 MG CAP PO SCH (21:00)
[2023-03-16 00:18] VITALS: O2SAT 97
[2023-03-16 03:28] LABS: Potassium 3.8 mEq/L (3.5-5.1)
[2023-03-16] MEDS: LEVOTHYROXINE SOD 0.075 MG TAB PO SCH (06:23)
[2023-03-16] MEDS: INSULIN GLARGINE 100 UNIT/ML SQ SCH (08:50)
[2023-03-16] MEDS: carBAMazepine 200 MG TAB PO SCH (08:50)
[2023-03-16] MEDS: INSULIN -REGULAR HUMAN 50 UNIT/0.5 ML ML SQ SCH (08:50)
[2023-03-16] MEDS: VITAMIN D 1000 UNIT TAB PO SCH (08:51)
[2023-03-16] MEDS: PANTOPRAZOLE 40MG TABLET PO SCH (08:51)
[2023-03-16] MEDS: predniSONE 20 MG TAB PO SCH (08:51)
[2023-03-16] MEDS: carvediloL 3.125 MG TAB PO SCH (08:53)
[2023-03-16] MEDS ORDERED: PNEUMOCOCCAL VACCINE 0.5 ML IMVAC ONE (09:00)
[2023-03-16] MEDS ORDERED: POTASSIUM CL SA 10 MEQ TAB PO ONE (09:00)
--- NOTE | 2023-03-16 09:10 | PN ---
Date of Progress Note: 03/16/2023 Subjective: Patient is awake and alert. No complaints. Objective: Vital Signs: Stable. Afebrile. Extremities: Dressing clean, dry and intact. Assessment: Status post right temporal artery biopsy. Recommendation: The patient is cleared from Surgery standpoint for discharge. Followup with me in m y office in 1 to 2 weeks. Keep Steri-Strips at all time. Medications per the Medical service and Ne urology service. /MODL Voice ID: [id number] Report ID: [id number]
[2023-03-16 09:21] VITALS: BP 164/78; TEMP 97.2
== END 2023-03-16 10:45 | disposition home or self-care (01) ==
LOC: ER 14:50 → ERHOLD 22:43 → UNDODISOB 03-14 12:15 → 2ND 03-14 15:21
PROVIDERS: ADMIT Internal Medicine; ATTEND Internal Medicine
PROC: 03BS0ZX Excision of Right Temporal Artery, Open Approach, Diagnostic (ICD-10-PCS; principal; 2023-03-15 15:15)
DX: R51.9 Headache, unspecified (principal); R53.1 Weakness; G50.0 Trigeminal neuralgia; G62.9 Polyneuropathy, unspecified; I10 Essential (primary) hypertension; E03.9 Hypothyroidism, unspecified; E11.65 Type 2 diabetes mellitus with hyperglycemia; I25.10 Atherosclerotic heart disease of native coronary artery without angina pectoris; R06.02 Shortness of breath; J44.9 Chronic obstructive pulmonary disease, unspecified; E86.0 Dehydration; L03.115 Cellulitis of right lower limb; Z79.4 Long term (current) use of insulin
CPT/HCPCS: 37609; 93005; 87040 ×2; 85025 ×2; 80048 ×3; 36415 ×2; 83735 ×3; 84100; 85610; 80061; 82947 ×8; 83605; 88305; 84443; 84484; 84439; 80053; 83880; 86140; 87804 ×2; 70450; 70487; 76377; 70496; 70498; 71045; 93971; 97116; 97161; 97530; 96374; 99285; Q9967; J1815 ×6; J7512 ×3; J2704; J2001 ×2; J3010; G0378 ×7; J7040; J7030; J0690 ×2

== ENCOUNTER 2023-03-23 13:59 | Observation (INO) | payer OTHER ==
--- OUTSIDE RECORDS SUMMARY | 2023-03-23 14:14 | XMS REPORT | Continuity of Care Document ---
:1945 Author Organization [facility] t Address [address] [facility] [address] [place] [address] Care Team Providers Name Role Phone Juan F Shaffer MD Primary Care Physician BISHNU WRIGHT Attending Clinician Unavailable BISHNU WRIGHT Attending Clinician Unavailable UNKNOWN, ATTENDING Attending Clinician Unavailable Doctor Unassigned, [place] Attending Clinician Unavailable Spike Hand Attending Clinician [facility] Attending Clinician Unavailable José Miguel Bang MD Attending Clinician JOSÉ MIGUEL BANG Attending Clinician Unavailable Pcp, Patient Does Not Have A Attending Clinician [phone] Britt Bolton Attending Clinician BRITT CASTRO Attending Clinician Unavailable Unknown, Attending Attending Clinician Unavailable Agusto Salas Attending Clinician Kishor Adams MD Attending Clinician KISHOR ADAMS Attending Clinician Unavailable QUINTON WILSON Attending Clinician Unavailable Quinton James Attending Clinician Juan F Shaffer Attending Clinician TING LOVELACE Attending Clinician Unavailable Ting Velazquez Attending Clinician Sona Jackson RN Attending Clinician Unavailable MICHAEL POTTER Attending Clinician Unavailable Michael Potter MD Attending Clinician Rashad Delgado MD Attending Clinician LIBERTY YEPEZ Attending Clinician Unavailable Liberty Carrasquillo Attending Clinician Jorge Ly Attending Clinician ROMA MAYA.HWilfrido Attending Clinician Unavailable IRAM MAJNARREZ Attending Clinician Unavailable IRAM MANJARREZ Attending Clinician Unavailable DIEGO ALVARADO Attending Clinician Unavailable PAUL BROWN Attending Clinician Unavailable QUINTON WILSON Admitting Clinician Unavailable RASHAD DELGADO Admitting Clinician Unavailable Rashad Delgado MD Admitting Clinician DIEGO ALVARADO Admitting Clinician Unavailable PAUL BROWN Admitting Clinician Unavailable Payers Payer Name Policy Type Policy Number Effective Date Expiration Date Benjamin D[facility] [id number] 2022 HMO 00:00:00 [employer] MEDICARE ADV [id number] 2019 00:00:00 Problems Condition Condition Condition Status Onset Resolution Last Treating Co mments Source Name Details Category Date Date Treatment Clinician Date Recurrent Recurrent Disease Active Uni vers UTI UTI 8-31 ity of 00:: [place] 00 Medical Branch Acute Acute Disease Active Univers exacerbati exacerbati 6-13 it y of on of on of 00:: [place] chronic chronic 00 Medical low back low back Branch pain pain Exertional Exertional Disease Active U nivers chest pain chest pain 1-23 it y of 00:: [place] [facility] ANDRADE ANDRADE Disease Active Univers (dyspnea (dyspnea 1-23 ity of on on 00:00: [place] exertion) exertion) 00 [facility] Branch Essential Essential Disease Active Uni vers hypertensi hypertensi 1-23 it y of on on 00:: [place] 00 Medical Branch Type 2 Type 2 Disease Active 2020- Univers diabetes diabetes 1-23 ity of mellitus mellitus 00:00: [place] without without 00 Medical complicati complicati Br anch on on Abnormal Abnormal Disease Active Unive rs ECG ECG 1-23 ity of 00:00: [place] 00 Medical Branch History of History of Disease Active 2020- U nivers anemia anemia 1-23 ity of 00:00: [place] 00 Medical Branch Rotator Rotator Disease Active [facility] cuff tear cuff tear -24 [facility] 00:[facility]: Medical 00 Center Impingemen Impingemen Disease Active [facility] -24 [facility] syndrome, syndrome, 00:00: Medi [place] shoulder shoulder 00 Center 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 [facility] Gastroesop Gastroeso Problem Resolve 2022-06-11 Memoria hageal phageal d 02:57:37 l reflux reflux Adam disease disease (disorder) (disorder) Resolved Problem 06/11/2022 [facility] Mixed Mixed Problem Resolve 2022-06-11 Yariel mariza anxiety anxiety d 02:57:37 l and and [place] depressive depressive disorder disorder (disorder) (disorder) Resolved Problem 06/11/2022 [facility] Asthma Asthma Problem Resolve 2022-06-11 Mem oria (disorder) (disorder) d 02:57:37 l Resolved [place] Problem [facility] Chronic Problem Resolve 2022-06-11 M emoria obstructiv obstructiv d 02:57:37 l e lung e lung Adam disease disease (disorder) (disorder) Resolved Problem 06/11/2022 [facility] Emphysema Problem Resolve 2022-06-11 M emoria (morpholog Emphysema d 02:57:37 l ic (morpholog Slava n abnormalit ic y) abnormalit y) Resolved Problem 06/11/2022 [facility] Neck pain Neck pain Problem Resolve 2022-06-11 Memoria (finding) (finding) d 02:57:37 l Resolved Adam Problem 06/11/2022 [facility] Shock Shock Problem Resolve 2022-06-11 Yariel mariza (disorder) (disorder) d 02:57:37 l Resolved [place] Problem 06/11/2022 [facility] Disease of Disease Problem Resolve 2022-06-11 Memoria urinary of urinary d 02:57:37 l tract tract [place] (disorder) (disorder) Resolved Problem 06/11/2022 [facility] Weakness Weakness Problem Resolve 2022-06-11 Memoria of of d 02:57:37 l limb(Confi limb(Confi He rmann rmed) rmed) Resolved Problem 06/11/2022 [facility] Acid Acid Problem Resolve 2013-07-24 Yariel mariza reflux reflux d 20:21:07 l Resolved [place] Problem 07/24/2013 [facility] Anxiety Anxiety Problem Resolve 2013-07-24 M emoria depression depression d 20:21:07 l Resolved [place] Problem 07/24/2013 [facility] COPD COPD Problem Resolve 2013-07-24 Yariel mariza Resolved d 20:21:07 l Problem [place] 07/24/2013 [facility] Emphysema Emphysema Problem Resolve 2013-07-24 Memoria Resolved d 20:21:07 l Problem Adam 07/24/2013 [facility] High High Problem Resolve 2013-07-24 Yariel mariza cholestero cholestero d 20:21:07 l l l Resolved Slava n Problem 07/24/2013 [facility] Hypertensi Hypertens Problem Resolve 2013-07-24 Memoria on ion d 20:21:07 l Resolved Adam Problem 07/24/2013 [facility] Neck pain Neck pain Problem Resolve 2013-07-24 Memoria Resolved d 20:21:07 l Problem [place] 07/24/2013 [facility] Poor Poor Problem Resolve 2013-07-24 Yariel mariza circulatio circulatio d 20:21:07 l n n Resolved Sl[place] n Problem 07/24/2013 [facility] Urinary Urinary Problem Resolve 2013-07-24 M emoria disorder disorder d 20:21:07 l Resolved Adam Problem 07/24/2013 [facility] Weakness Weakness Problem Resolve 2013-07-24 Memoria of limb of limb d 20:21:07 l Resolved [place] Problem 07/24/2013 [facility] 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 Herm billie (disorder) (disorder) Active Problem 06/11/2022 [facility] Pure Pure Problem Active 2022-06-11 Memor ia hyperchole hyperchole 02:57:37 l sterolemia sterolemia He rmann (disorder) (disorder) Active Problem 06/11/2022 [facility] Neuralgia Neuralgia Problem Active 2022-06-11 Memoria (disorder) (disorder) 02:57:37 l Active [place] Problem 06/11/2022 [facility] Paresthesi Paresthes Problem Active 2022-06-11 Memoria a ia 02:57:37 l (finding) (finding) Herm billie Active Problem 06/11/2022 [facility] Spinal Spinal Problem Active 2022-06-11 Yariel mariza stenosis stenosis 02:57:37 l (disorder) (disorder) He rmann Active Problem 06/11/2022 [facility] Tremor Tremor Problem Active 2022-06-11 Yariel mariza (finding) (finding) 02:57:37 l Active [place] Problem 06/11/2022 [facility] Diabetes Diabetes Problem Active 2022-06-11 Memoria mellitus mellitus 02:57:37 l type 2 type 2 [place] (disorder) (disorder) Active Problem 06/11/2022 [facility] Amnesia Amnesia Problem Active 2022-06-11 Me moria (finding) (finding) 02:57:37 l Active [place] Problem 06/11/2022 [facility] Headache Headache Problem Active 2022-06-11 Memoria (finding) (finding) 02:57:37 l Active [place] Problem 06/11/2022 [facility] CERVICAL CERVICAL Diagnosis Active 2013-08-28 Memoria SPINAL SPINAL 07:21:00 l STENOSIS STENOSIS Slava n Active [facility] CERV DISC CERV DISC Diagnosis Active 2013-08-28 Memoria DIS W DIS W 07:21:00 l MYELOPAT MYELOPAT Slava n Active [facility] Allergies, Adverse Reactions, Alerts Allergy [...] Morphine Active Memori a Sulfate Sulfate l [place] Social History Social Habit Start Date Stop Date Quantity Comments Source History SDOH University o f Alcohol Std [place] Medical Drinks Branch History SDOH University o f Alcohol Binge [place] [facility] al Branch History SDOH University o f Alcohol Comment [place] Med ical [facility] History of Cigarette Smoker Universi ty of tobacco use [place] [facility] Exposure to 2023-02-15 2023-02-25 Not sure University of SARS-CoV-2 00:00:00 13:44:00 [place] Medical (event) Branch Tobacco use and 2022-05-26 2022-05-26 Smokeless tobacco Un iversity of exposure 00:00:00 00:00:00 non-user [place] [facility] History SDOH 2022-04-09 2022-04-09 1 University o f Alcohol Frequency 00:00:00 00:00:00 [place] M edical Branch Social History 2021-08-15 2021-08-15 Yogesh salazar 20:38:18 20:38:18 Alcohol intake 2018-03-20 2018-03-[address] [facility] 00:[facility]:00 00:00:00 non-drinker of Medical Ce nter alcohol (finding) Tobacco Comment 2018-03-12 2018-03-12 younger years MALCOLM Roach 00:00:00 00:00:00 Medical Center Sex [birth year] MAL[facility] Ordonezs 00:00:00 00:00:00 Medical Center Smoking Status Start Date Stop Date Source Ex-smoker 2022-05-26 00:00:00 2022-05-26 00:00:00 [facility] Branch Medications Ordered Filled Start Stop Current Ordering Indication Dosage Frequency Signature Comments Components Source Medication Medication Date Date Medication? Clinician (SIG) Name Name estradioL Yes [id number] Apply 1g Univers (ESTRACE) 5-01 vaginally ity o f 0.01 % (0.1 00:00: at bedtime [place] mg/gram) 00 every Medical vaginal night for Branch cream 4 weeks estradioL Yes [id number] Apply 1g Univers (ESTRACE) 5-01 vaginally ity o f 0.01 % (0.1 00:00: at bedtime [place] mg/gram) 00 every Medical vaginal night for Branch cream 4 weeks estradioL Yes [id number] Apply 1g Univers (ESTRACE) 5-01 vaginally ity o f 0.01 % (0.1 00:00: at bedtime [place] mg/gram) 00 every Medical vaginal night for Branch cream 4 weeks estradioL Yes [id number] Apply 1g Univers (ESTRACE) 5-01 vaginally ity [...] daily. [place] ORAL) 43 Medical Branch methenamine 2023-0 Yes 1g Take 1 Univers 1 gram 4-12 tablet by ity of tablet 00:00: mouth in [place] [address] [facility] morning [place] and 1 tablet in the evening. Take with meals. methenamine 2023-0 Yes 1g Take 1 Univers 1 gram 4-12 tablet by ity of tablet 00:00: mouth in [place] [address] [facility] morning [place] and 1 tablet in the evening. Take with meals. methenamine 2023-0 Yes 1g Take 1 Univers 1 gram 4-12 tablet by ity of tablet 00:00: mouth in [address] morning [place] and 1 tablet in the evening. Take with meals. methenamine 2023-0 Yes 1g Take 1 Univers 1 gram 4-12 tablet by ity of tablet 00:00: mouth in [address] and 1 tablet in the evening. Take with meals. methenamine 2023-0 Yes 1g Take 1 Univers 1 gram 4-12 tablet by ity of tablet 00:00: mouth in [address] and 1 tablet in the evening. Take with meals. methenamine 2023-0 Yes 1g Take 1 Univers 1 gram 4-12 tablet by ity of tablet 00:00: mouth in [address] and 1 tablet in the evening. Take with meals. methenamine 2023-0 Yes 1g Take 1 Univers 1 gram 4-12 tablet by ity of tablet 00:00: mouth in [address] and 1 tablet in the evening. Take with meals. methenamine 2023-0 Yes 1g Take 1 Univers 1 gram 4-12 tablet by ity of tablet 00:00: mouth in [address] and 1 tablet in the evening. Take with meals. methenamine 2023-0 Yes 1g Take 1 Univers 1 gram 4-12 tablet by ity of tablet 00:00: mouth in [address] and 1 tablet in the evening. Take with meals. methenamine 2023-0 Yes 1g Take 1 Univers 1 gram 4-12 tablet by ity of tablet 00:00: mouth in [address] and 1 tablet in the evening. Take with meals. methenamine 2023-0 Yes 1g Take 1 Univers 1 gram 4-12 tablet by ity of tablet 00:00: mouth in [place] 00 the Medical morning Branch and 1 tablet in the evening. Take with meals. methenamine 2023-0 Yes 1g Take 1 Univers 1 gram 4-12 tablet by ity of tablet 00:00: mouth in [place] 00 the Medical morning Branch and 1 tablet in the evening. Take with meals. methenamine 3-0 Yes 1g Take 1 Univers 1 gram 4-12 tablet by ity of tablet 00:00: mouth in [place] 00 the Medical morning Branch and 1 tablet in the evening. Take with meals. methylpredn 0 2022- No [id number] 125mg Univers isolone sod 01-11 ity of succ 00:30: 23:30 [place] (SOLU-MEDRO 00 :00 Medical L) Branch injection 125 mg methylpredn 2022- No [id number] 125mg 125 mg, Univers isolone sod 01-11 Intramuscu i ty of succ 00:30: 23:30 lar, ONCE, [place] (SOLU-MEDRO 00 :00 1 dose, On Me dical L) [place] Branch injection 01/10/23 at 125 mg 1930, Routine albuterol 2022- No [id number] 2{puff} Univers (VENTOLIN) 01-11 ity of inhaler 2 00:15: 23:31 [place] Puff 00 :00 Medical Branch albuterol 0 2022- No [id number] 2{puff} 2 Puff, Univers (VENTOLIN) 01-11 Inhalation it y of inhaler 2 00:15: 23:31 , [place]CE, 1 [place] Puff 00 :00 dose, On Medical [facility] Branch 01/10/23 at 1915, Routine azithromyci 0 Yes [id number] 250mg Take 1 Univers n 250 mg 3-16 tablet by ity of tablet 00:00: mouth in [place] 00 the Medical morning. Branch azithromyci 0 Yes [id number] 250mg Take 1 Univers n 250 mg 3-16 tablet by ity of tablet 00:00: mouth in [place] 00 the Medical morning. Branch azithromyci 2022-0 Yes [id number] 250mg Take 1 Univers n 250 mg 3-16 tablet by ity of tablet 00:00: mouth in [place] 00 the Medical morning. Branch azithromyci 2022-0 2022- No [id number] 250mg Take 1 Univers n 250 mg 3-16 04-12 tablet by ity o f tablet 00:00: 00:00 mouth in [place] 00 :00 the Medical morning. Branch azithromyci 2022-0 2022- No [id number] 250mg Take 1 Univers n 250 mg 3-16 04-12 tablet by ity o f tablet 00:00: 00:00 mouth in [place] 00 :00 the Medical morning. Branch azithromyci 2022-0 2022- No [id number] 250mg Take 1 Univers n 250 mg 3-16 04-12 tablet by ity o f tablet 00:00: 00:00 mouth in [place] 00 :00 the Medical morning. Branch methenamine 2023-0 Yes [id number] 1g Take 1 Univers 1 gram 3-01 tablet by ity of tablet 00:00: mouth in [place] 00 the Medical morning Branch and 1 tablet in the evening. Take with meals. methenamine 2023-0 Yes 1g Take 1 Univers 1 gram 3-01 tablet by ity of tablet 00:00: mouth in [place] 00 the Medical morning Branch and 1 tablet in the evening. Take with meals. methenamine 2023-0 Yes 1g Take 1 Univers 1 gram 3-01 tablet by ity of tablet 00:00: mouth in [place] 00 the Medical morning Branch and 1 tablet in the evening. Take with meals. methenamine 2023-0 Yes 1g Take 1 Univers 1 gram 3-01 tablet by ity of tablet 00:00: mouth in [place] 00 the Medical morning Branch and 1 tablet in the evening. Take with meals. methenamine 2023-0 2022- No 1g Take 1 Univers 1 gram 3-01 04-12 tablet by ity of tablet 00:00: 00:00 mouth in [place] 00 :00 the Medical morning Branch and 1 tablet in the evening. Take with meals. methenamine 2023-0 2022- No [id number] 1g Take 1 Univers 1 gram 3-01 04-12 tablet by ity of tablet 00:00: 00:00 mouth in [place] 00 :00 the Medical morning Branch and 1 tablet in the evening. Take with meals. methenamine 0 2022- No [id number] 1g Take 1 Univers 1 gram 3-01 04-12 tablet by ity of tablet 00:00: 00:00 mouth in [place] 00 :00 the Medical morning Branch and 1 tablet in the evening. Take with meals. methenamine 2021-10 Yes 1g Take 1 Univers 1 gram 1-02 tablet by ity of tablet 00:00: mouth in [place] 00 the Medical morning Branch and 1 tablet in the evening. Take with meals. methenamine 2021-10 Yes 1g Take 1 Univers 1 gram 1-02 tablet by ity of tablet 00:00: mouth in [place] 00 the Medical morning Branch and 1 tablet in the evening. Take with meals. methenamine 2021-10 Yes 1g Take 1 Univers 1 gram 1-02 tablet by ity of tablet 00:00: mouth in [place] 00 the Medical morning [place] and 1 tablet in the evening. Take with meals. methenamine 2021-10 Yes 1g Take 1 Univers 1 gram 1-02 tablet by ity of tablet 00:00: mouth in [place] 00 the Medical morning [place] and 1 tablet in the evening. Take with meals. methenamine 2021-10- No [id number] 1g Take 1 Univers 1 gram 1-02 03-01 tablet by ity of tablet 00:00: 00:00 mouth in [place] 00 :00 the Medical morning [place] and 1 tablet in the evening. Take with meals. pneumococca 2021-10- No [id number] .5mL 0.5 mL by [facility] vac 10-29 Intramuscu ity of polyvalent 00:00: 00:00 lar route [place] 25 mcg/0.5 00 :00 once now Medic al mL for 1 Branch injection dose. pneumococca 2021-10- No [id number] .5mL 0.5 mL by [facility] vac 10-29 Intramuscu ity of polyvalent 00:00: 00:00 lar route [place] 25 mcg/0.5 00 :00 once now Medic al mL for 1 Branch injection dose. pneumococca 2021-10- No [id number] .5mL 0.5 mL by Univers l vac 10-29 Intr[place]cu ity of polyvalent 00:00: 00:00 lar route [place] 25 mcg/0.5 00 :00 once now Medic al mL for 1 Branch injection dose. methenamine No [id number] 1g Take 1 Univers 1 gram 07-04 tablet by ity of tablet 00:00: 05:59 mouth in [place] 00 :00 [facility] and 1 tablet in the evening. Take with meals. Do all this for 60 days. methenamine No [id number] 1g Take 1 Univers 1 gram 07-04 tablet by ity of tablet 00:00: 05:59 mouth in [place] 00 :00 [facility] and 1 tablet in the evening. Take with meals. Do all this for 60 days. methenamine No [id number] 1g Take 1 Univers 1 gram 07-04 tablet by ity of tablet 00:00: 05:59 mouth in [place] 00 :00 [facility] and 1 tablet in the evening. Take with meals. Do all this for 60 days. methenamine No [id number] 1g Take 1 Univers 1 gram 07-04 tablet by ity of tablet 00:00: 05:59 mouth in [place] 00 :00 [facility] and 1 tablet in the evening. Take with meals. Do all this for 60 days. methenamine No [id number] 1g Take 1 Univers 1 gram 07-04 tablet by ity of tablet 00:00: 00:00 mouth in [place] 00 :00 [facility] and 1 tablet in the evening. Take with meals. Do all this for 60 days. methenamine No [id number] 1g Take 1 Univers 1 gram 07-04 tablet by ity of tablet 00:00: 00:00 mouth in [place] 00 :00 [facility] and 1 tablet in the evening. Take with meals. Do all this for 60 days. methenamine No [id number] 1g Take 1 Univers 1 gram 07-04 tablet by ity of tablet 00:00: 00:00 mouth in [place] 00 :00 the Medical morning Branch and 1 tablet in the evening. Take with meals. Do all this for 60 days. amoxicillin 2021- No [id number] 1{tbl} Take 1 Univers -clavulanat 8-04 08-15 tablet by it y of e 00:00: 04:59 mouth in [place] (AUGMENTIN) 00 :00 the Medical 875-125 mg morning Branch per tablet and 1 tablet in the evening. Do all this for 10 days. sitagliptin Yes Take by Uni vers phosphate [...] mg 43 daily. Medical per tablet Branch fluticasone Yes [id number] 1{puff} Inhale 1 Univers propion-brittney 6-14 Puff every it y of meteroL 00:00: 12 [place] (ADVAIR () Medical DISKUS) hours. Branch 250-50 mcg/dose inhalation disk fluticasone Yes [id number] 1{puff} Inhale 1 Univers propion-brittney 6-14 Puff every it y of meteroL 00:00: 12 [place] (ADVAIR () Medical DISKUS) hours. Branch 250-50 mcg/dose inhalation disk fluticasone Yes [id number] 1{puff} Inhale 1 Univers propion-brittney 6-14 Puff every it y of meteroL 00:00: 12 [place] (ADVAIR () Medical DISKUS) hours. Branch 250-50 mcg/dose inhalation disk fluticasone 2022-0 Yes [id number] 1{puff} Inhale 1 Univers propion-brittney 6-14 Puff every it y of meteroL 00:00: 12 [place] (ADVAIR ) Medical DISKUS) hours. Branch 250-50 mcg/dose inhalation disk fluticasone 2022-0 Yes [id number] 1{puff} Inhale 1 Univers propion-brittney 6-14 Puff every it y of meteroL 00:00: 12 [place] (ADVAIR ) Medical DISKUS) hours. Branch 250-50 mcg/dose inhalation disk fluticasone 2022-0 Yes [id number] 1{puff} Inhale 1 Univers propion-brittney 6-14 Puff every it y of meteroL 00:00: 12 [place] (ADVAIR ) Medical DISKUS) hours. Branch 250-50 mcg/dose inhalation disk fluticasone 2022-0 Yes [id number] 1{puff} Inhale 1 Univers propion-brittney 6-14 Puff every it y of meteroL 00:00: 12 [place] (ADVAIR ) Medical DISKUS) hours. Branch 250-50 mcg/dose inhalation disk fluticasone 2022-0 Yes [id number] 1{puff} Inhale 1 Univers propion-brittney 6-14 Puff every it y of meteroL 00:00: 12 [place] (ADVAIR () Medical DISKUS) hours. Branch 250-50 mcg/dose inhalation disk fluticasone 2022-0 Yes [id number] 1{puff} Inhale 1 Univers propion-brittney 6-14 Puff every it y of meteroL 00:00: 12 [place] (ADVAIR () Medical DISKUS) hours. Branch 250-50 mcg/dose inhalation disk fluticasone 2022-0 Yes [id number] 1{puff} Inhale 1 Univers propion-brittney 6-14 Puff every it y of meteroL 00:00: 12 [place] (ADVAIR () Medical DISKUS) hours. Branch 250-50 mcg/dose inhalation disk fluticasone 2022-0 Yes [id number] 1{puff} Inhale 1 Univers propion-brittney 6-14 Puff every it y of meteroL 00:00: 12 [place] (ADVAIR (twelve) Medical DISKUS) hours. Branch 250-50 mcg/dose inhalation disk fluticasone 2022-0 Yes [id number] 1{puff} Inhale 1 Univers propion-brittney 6-14 Puff every it y of meteroL 00:00: 12 [place] (ADVAIR 00 (twelve) Medical DISKUS) hours. Branch 250-50 mcg/dose inhalation disk fluticasone 2022-0 Yes [id number] 1{puff} Inhale 1 Univers propion-brittney 6-14 Puff every it y of meteroL 00:00: 12 [place] (ADVAIR 00 (twelve) Medical DISKUS) hours. Branch 250-50 mcg/dose inhalation disk fluticasone 2022-0 Yes [id number] 1{puff} Inhale 1 Univers propion-brittney 6-14 Puff every it y of meteroL 00:00: 12 [place] (ADVAIR (twelve) Medical DISKUS) hours. Branch 250-50 mcg/dose inhalation disk fluticasone 2022-0 Yes [id number] 1{puff} Inhale 1 Univers propion-brittney 6-14 Puff every it y of meteroL 00:00: 12 [place] (ADVAIR (twelve) Medical DISKUS) hours. Branch 250-50 mcg/dose inhalation disk fluticasone 2022-0 Yes [id number] 1{puff} Inhale 1 Univers propion-brittney 6-14 Puff every it y of meteroL 00:00: 12 [place] (ADVAIR 00 (twelve) Medical DISKUS) hours. Branch 250-50 mcg/dose inhalation disk fluticasone 2022-0 Yes [id number] 1{puff} Inhale 1 Univers propion-brittney 6-14 Puff every it y of meteroL 00:00: 12 [place] (ADVAIR 00 (twelve) Medical DISKUS) hours. Branch 250-50 mcg/dose inhalation disk fluticasone 2022-0 Yes [id number] 1{puff} Inhale 1 Univers propion-brittney 6-14 Puff every it y of meteroL 00:00: 12 [place] (ADVAIR 00 (twelve) Medical DISKUS) hours. Branch 250-50 mcg/dose inhalation disk fluticasone 2022-0 Yes [id number] 1{puff} Inhale 1 Univers propion-brittney 6-14 Puff every it y of meteroL 00:00: 12 [place] (ADVAIR ) Medical DISKUS) hours. Branch 250-50 mcg/dose inhalation disk fluticasone 2022-0 Yes [id number] 1{puff} Inhale 1 Univers propion-brittney 6-14 Puff every it y of meteroL 00:00: 12 [place] (ADVAIR ) Medical DISKUS) hours. Branch 250-50 mcg/dose inhalation disk fluticasone 2022-0 Yes [id number] 1{puff} Inhale 1 Univers propion-brittney 6-14 Puff every it y of meteroL 00:00: 12 [place] (ADVAIR ) Medical DISKUS) hours. Branch 250-50 mcg/dose inhalation disk fluticasone 2022-0 Yes [id number] 1{puff} Inhale 1 Univers propion-brittney 6-14 Puff every it y of meteroL 00:00: 12 [place] (ADVAIR ) Medical DISKUS) hours. Branch 250-50 mcg/dose inhalation disk fluticasone 2022-0 Yes [id number] 1{puff} Inhale 1 Univers propion-brittney 6-14 Puff every it y of meteroL 00:00: 12 [place] (ADVAIR ) Medical DISKUS) hours. Branch 250-50 mcg/dose inhalation disk fluticasone 2022-0 Yes [id number] 1{puff} Inhale 1 Univers propion-brittney 6-14 Puff every it y of meteroL 00:00: 12 [place] (ADVAIR ) Medical DISKUS) hours. Branch 250-50 mcg/dose inhalation disk fluticasone 2022-0 Yes [id number] 1{puff} Inhale 1 Univers propion-brittney 6-14 Puff every it y of meteroL 00:00: 12 [place] (ADVAIR ) Medical DISKUS) hours. Branch 250-50 mcg/dose inhalation disk fluticasone 2022-0 Yes [id number] 1{puff} Inhale 1 [facility] propion-brittney 6-14 Puff every it y of meteroL 00:00: 12 [place] (ADVAIR ) Medical DISKUS) hours. Branch 250-50 mcg/dose inhalation disk fluticasone 2022-0 Yes [id number] 1{puff} Inhale 1 [facility] propion-brittney 6-14 Puff every it y of meteroL 00:00: 12 [place] (ADVAIR 00 (twelve) Medical DISKUS) hours. Branch 250-50 mcg/dose inhalation disk methocarbam Yes [id number] 500mg Take 1 [facility] oL 500 mg 6-13 tablet by ity o f tablet 00:00: mouth [place] 00 every 6 Medical (six) Branch hours as needed for Pain (scale 7-10) (MUSCLE SPASM). methocarbam Yes [id number] 500mg Take 1 [facility] oL 500 mg 6-13 tablet by ity o f tablet 00:00: mouth [place] 00 every 6 Medical (six) Branch hours as needed for Pain (scale 7-10) (MUSCLE SPASM). methocarbam Yes [id number] 500mg Take 1 [facility] oL 500 mg 6-13 tablet by ity o f tablet 00:00: mouth [place] 00 every 6 Medical (six) Branch hours as needed for Pain (scale 7-10) (MUSCLE SPASM). methocarbam Yes [id number] 500mg Take 1 [facility] oL 500 mg 6-13 tablet by ity o f tablet 00:00: mouth [place] 00 every 6 Medical (six) Branch hours as needed for Pain (scale 7-10) (MUSCLE SPASM). methocarbam Yes [id number] 500mg Take 1 [facility] oL 500 mg 6-13 tablet by ity o f tablet 00:00: mouth [place] 00 every 6 Medical (six) Branch hours as needed for Pain (scale 7-10) (MUSCLE SPASM). methocarbam Yes [id number] 500mg Take 1 [facility] oL 500 mg 6-13 tablet by ity o f tablet 00:00: mouth [place] 00 every 6 Medical (six) Branch hours as needed for Pain (scale 7-10) (MUSCLE SPASM). methocarbam 0 Yes [id number] 500mg Take 1 [facility] oL 500 mg 6-13 tablet by ity o f tablet 00:00: mouth [place] 00 every 6 Medical (six) Branch hours as needed for Pain (scale 7-10) (MUSCLE SPASM). methocarbam 0 Yes [id number] 500mg Take 1 [facility] oL 500 mg 6-13 tablet by ity o f tablet 00:00: mouth [place] 00 every 6 Medical (six) Branch hours as needed for Pain (scale 7-10) (MUSCLE SPASM). methocarbam 2-0 Yes [id number] 500mg Take 1 [facility] oL 500 mg 6-13 tablet by ity o f tablet 00:00: mouth [place] 00 every 6 Medical (six) Branch hours as needed for Pain (scale 7-10) (MUSCLE SPASM). methocarbam 2021-0 Yes [id number] 500mg Take 1 [facility] oL 500 mg 6-13 tablet by ity o f tablet 00:00: mouth [place] 00 every 6 Medical (six) Branch hours as needed for Pain (scale 7-10) (MUSCLE SPASM). methocarbam 2021-0 Yes [id number] 500mg Take 1 [facility] oL 500 mg 6-13 tablet by ity o f tablet 00:00: mouth [place] 00 every 6 Medical (six) Branch hours as needed for Pain (scale 7-10) (MUSCLE SPASM). methocarbam 2021-0 Yes [id number] 500mg Take 1 [facility] oL 500 mg 6-13 tablet by ity o f tablet 00:00: mouth [place] 00 every 6 Medical (six) Branch hours as needed for Pain (scale 7-10) (MUSCLE SPASM). methocarbam 2021-0 Yes [id number] 500mg Take 1 [facility] oL 500 mg 6-13 tablet by ity o f tablet 00:00: mouth [place] 00 every 6 Medical (six) Branch hours as needed for Pain (scale 7-10) (MUSCLE SPASM). methocarbam 2-0 Yes [id number] 500mg Take 1 [facility] oL 500 mg 6-13 tablet by ity o f tablet 00:00: mouth [place] 00 every 6 Medical (six) Branch hours as needed for Pain (scale 7-10) (MUSCLE SPASM). methocarbam 2-0 Yes [id number] 500mg Take 1 [facility] oL 500 mg 6-13 tablet by ity o f tablet 00:00: mouth [place] 00 every 6 Medical (six) Branch hours as needed for Pain (scale 7-10) (MUSCLE SPASM). methocarbam 2022-0 Yes [id number] 500mg Take 1 [facility] oL 500 mg 6-13 tablet by ity o f tablet 00:00: mouth [place] 00 every 6 Medical (six) Branch hours as needed for Pain (scale 7-10) (MUSCLE SPASM). methocarbam 2-0 Yes [id number] 500mg Take 1 [facility] oL 500 mg 6-13 tablet by ity o f tablet 00:00: mouth [place] 00 every 6 Medical (six) Branch hours as needed for Pain (scale 7-10) (MUSCLE SPASM). methocarbam 2-0 Yes [id number] 500mg Take 1 [facility] oL 500 mg 6-13 tablet by ity o f tablet 00:00: mouth [place] 00 every 6 Medical (six) Branch hours as needed for Pain (scale 7-10) (MUSCLE SPASM). methocarbam 2-0 Yes [id number] 500mg Take 1 [facility] oL 500 mg 6-13 tablet by ity o f tablet 00:00: mouth [place] 00 every 6 Medical (six) Branch hours as needed for Pain (scale 7-10) (MUSCLE SPASM). methocarbam 2021-0 Yes [id number] 500mg Take 1 [facility] oL 500 mg 6-13 tablet by ity o f tablet 00:00: mouth [place] 00 every 6 Medical (six) Branch hours as needed for Pain (scale 7-10) (MUSCLE SPASM). methocarbam 2021-0 Yes [id number] 500mg Take 1 [facility] oL 500 mg 6-13 tablet by ity o f tablet 00:00: mouth [place] 00 every 6 Medical (six) Branch hours as needed for Pain (scale 7-10) (MUSCLE SPASM). methocarbam 2-0 Yes [id number] 500mg Take 1 [facility] oL 500 mg 6-13 tablet by ity o f tablet 00:00: mouth [place] 00 every 6 Medical (six) Branch hours as needed for Pain (scale 7-10) (MUSCLE SPASM). methocarbam 2-0 Yes [id number] 500mg Take 1 [facility] oL 500 mg 6-13 tablet by ity o f tablet 00:00: mouth [place] 00 every 6 Medical (six) Branch hours as needed for Pain (scale 7-10) (MUSCLE SPASM). methocarbam 2022-0 Yes [id number] 500mg Take 1 [facility] oL 500 mg 6-13 tablet by ity o f tablet 00:00: mouth [place] 00 every 6 Medical (six) Branch hours as needed for Pain (scale 7-10) (MUSCLE SPASM). methocarbam 2021-0 Yes [id number] 500mg Take 1 [facility] oL 500 mg 6-13 tablet by ity o f tablet 00:00: mouth [place] 00 every 6 Medical (six) Branch hours as needed for Pain (scale 7-10) (MUSCLE SPASM). methocarbam 2021-0 Yes [id number] 500mg Take 1 [facility] oL 500 mg 6-13 tablet by ity o f tablet 00:00: mouth [place] 00 every 6 Medical (six) Branch hours as needed for Pain (scale 7-10) (MUSCLE SPASM). 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, Weight pregabalin 2020-10 Yes 50 mg = 1 Me moria 50 MG Oral 1-22 cap, PO, l Capsule 22:06: Bedtime, # [place] billie [Lyrica] 00 30 cap, 3 Refill(s), Pharmacy: [facility] #[id number], 162.56, cm, 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, Height, 93.182, kg, 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, Weight pregabalin 2020-10 Yes 50 mg = 1 Me moria 50 MG Oral 1-22 cap, PO, l Capsule 22:06: Bedtime, # [place] billie [Lyrica] 00 30 cap, 3 Refill(s), Pharmacy: [facility] #[id number], 162.56, cm, 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56, cm, 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, Height, 93.182, kg, 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, Weight pregabalin 2020-10 Yes 50 mg = 1 Me moria 50 MG Oral 1-22 cap, PO, l Capsule 22:06: Bedtime, # [place] bill[place] [Lyrica] 00 30 cap, 3 Refill(s), [id number], 162.56, cm, 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, Height, 93.182, kg, 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, Weight pregabalin 2020-10 Yes 50 mg = 1 Me moria 50 MG Oral 1-22 cap, PO, l Capsule 22:06: Bedtime, # [place] billie [Lyrica] 00 30 cap, 3 Refill(s), [id number], 162.56, cm, 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, Height, 93.182, kg, 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, Weight amLODIPine 2020-10 Yes 5 mg = 1 Mem oria 5 mg oral 0-19 tab, PO, l tablet 20:47: Daily, # [place] 00 90 tab, 0 Refill(s) tamsulosin 2020-10 [...] tab, PO, l tablet 20:47: Daily, # [place] 00 90 tab, 0 Refill(s) tamsulosin 2020-10 [...] tab, PO, l tablet 20:47: Daily, # [place] 00 90 tab, 0 Refill(s) tamsulosin 2020-10 [...] tab, PO, l tablet 20:47: Daily, # [place] 00 90 tab, 0 Refill(s) tamsulosin 2020-10 [...] tab, PO, l tablet 20:47: Daily, # [place] 00 90 tab, 0 Refill(s) tamsulosin 2020-10 [...] tab, PO, l tablet 20:47: Daily, # [place] 00 90 tab, 0 Refill(s) tamsulosin 2020-10 [...] tab, PO, l MG Extended 20:46: Breakfast, [place] Release 00 # 30 tab, Tablet 0 Refill(s) rosuvastati 2020-10 Yes 10 mg = 1 M emoria n 10 mg 0-19 tab, PO, l oral tablet 20:46: Bedtime, # [place] 00 30 tab, 0 Refill(s) sitagliptin 2020-10 Yes 100 mg = 1 Memoria 100 MG Oral 0-19 tab, PO, l Tablet 20:46: Daily, # [place] [Januvia] 00 30 tab, 0 Refill(s) 24 HR 2020-10 Yes 5 mg = 1 Memoria Glipizide 5 0-19 tab, PO, l MG Extended 20:46: Breakfast, [place] Release 00 # 30 tab, Tablet 0 Refill(s) rosuvastati 2020-10 Yes 10 mg = 1 M emoria n 10 mg 0-19 tab, PO, l oral tablet 20:46: Bedtime, # [place] 00 30 tab, 0 Refill(s) sitagliptin 2020-10 Yes 100 mg = 1 Mem[facility] 100 MG Oral 0-19 tab, PO, l Tablet 20:46: Daily, # [place] [Januvia] 00 30 tab, 0 Refill(s) 24 HR 2020-10 Yes 5 mg = 1 [facility] Glipizide 5 0-19 tab, PO, l MG Extended 20:46: Breakfast, [place] Release 00 # 30 tab, Tablet 0 Refill(s) rosuvastati 2020-10 Yes 10 mg = 1 M emoria n 10 mg 0-19 tab, PO, l oral tablet 20:46: Bedtime, # [place] 00 30 tab, 0 Refill(s) sitagliptin 2020-10 Yes 100 mg = 1 [facility] 100 MG Oral 0-19 tab, PO, l Tablet 20:46: Daily, # [place] [Januvia] 00 30 tab, 0 Refill(s) 24 HR 2020-10 Yes 5 mg = 1 [facility] Glipizide 5 0-19 tab, PO, l MG Extended 20:46: Breakfast, [place] Release 00 # 30 tab, Tablet 0 Refill(s) rosuvastati 2020-10 Yes 10 mg = 1 M emoria n 10 mg 0-19 tab, PO, l oral tablet 20:46: Bedtime, # [place] 00 30 tab, 0 Refill(s) sitagliptin 2020-10 [...] PO, l oral tablet 20:46: Bedtime, # [place] 00 30 tab, 0 Refill(s) sitagliptin 2020-10 Yes 100 mg = 1 Memoria 100 MG Oral 0-19 tab, PO, l Tablet 20:46: Daily, # [place] [Januvia] 00 30 tab, 0 Refill(s) 24 HR 2020-10 Yes 5 mg = 1 Memoria Glipizide 5 0-19 tab, PO, l MG Extended 20:46: Breakfast, [place] Release 00 # 30 tab, Tablet 0 Refill(s) rosuvastati 2020-10 Yes 10 mg = 1 M emoria n 10 mg 0-19 tab, PO, l oral tablet 20:46: Bedtime, # [place] 00 30 tab, 0 Refill(s) sitagliptin 2020-10 Yes 100 mg = 1 Memoria 100 MG Oral 0-19 tab, PO, l Tablet 20:46: Daily, # [place] [Januvia] 00 30 tab, 0 Refill(s) 24 HR 2020-10 Yes 5 mg = 1 Memoria Glipizide 5 0-19 tab, PO, l MG Extended 20:46: Breakfast, [place] Release 00 # 30 tab, Tablet 0 Refill(s) rosuvastati 2020-10 Yes 10 mg = 1 M emoria n 10 mg 0-19 tab, PO, l oral tablet 20:46: Bedtime, # [place] 00 30 tab, 0 Refill(s) sitagliptin 2020-10 Yes 100 mg = 1 Mem[facility] 100 MG Oral 0-19 tab, PO, l Tablet 20:46: Daily, # [place] [Januvia] 00 30 tab, 0 Refill(s) 24 HR 2020-10 Yes 5 mg = 1 Memoria Glipizide 5 0-19 tab, PO, l MG Extended 20:46: Breakfast, [place] Release 00 # 30 tab, Tablet 0 Refill(s) rosuvastati 2020-10 Yes 10 mg = 1 Maik moyaa n 10 mg 0-19 tab, PO, l oral tablet 20:46: Bedtime, # [place] 00 30 tab, 0 Refill(s) sitagliptin 2020-10 Yes 100 mg = 1 Memoria 100 MG Oral 0-19 tab, PO, l Tablet 20:46: Daily, # [place] [Januvia] 00 30 tab, 0 Refill(s) metoprolol [...] Medical times Branch daily. nitroglycer 2020-[id number] 1 [facility] in 0.4 mg 1-23 tablet ity of sublingual 00:00: under the [place] tablet 00 tongue Medical every 5 Branch (five) minutes as needed for Chest pain. nitroglycer 2020-[id number] 1 [facility] in 0.4 mg 1-23 tablet ity of sublingual 00:00: under the [place] tablet 00 tongue Medical every 5 Branch (five) minutes as needed for Chest pain. nitroglycer 2020-[id number] 1 [facility] in 0.4 mg 1-23 tablet ity of sublingual 00:00: under the [place] tablet 00 tongue Medical every 5 Branch (five) minutes as needed for Chest pain. nitroglycer 2020-[id number] 1 Univers in 0.4 mg 1-23 tablet ity of sublingual 00:00: under the [place] tablet 00 tongue Medical every 5 Branch (five) minutes as needed for Chest pain. nitroglycer 2020-[id number] 1 Univers in 0.4 mg 1-23 tablet ity of sublingual 00:00: under the [place] tablet 00 tongue Medical every 5 Branch (five) minutes as needed for Chest pain. nitroglycer 2020-[id number] 1 Univers in 0.4 mg 1-23 tablet ity of sublingual 00:00: under the [place] tablet 00 tongue Medical every 5 Branch (five) minutes as needed for Chest pain. nitroglycer 2020-[id number] 1 Univers in 0.4 mg 1-23 tablet ity of sublingual 00:00: under the [place] tablet 00 tongue Medical every 5 Branch (five) minutes as needed for Chest pain. nitroglycer 2020-[id number] 1 Univers in 0.4 mg 1-23 tablet ity of sublingual 00:00: under the [place] tablet 00 tongue Medical every 5 Branch (five) minutes as needed for Chest pain. nitroglycer 2020-[id number] 1 Univers in 0.4 mg 1-23 tablet ity of sublingual 00:00: under the [place] tablet 00 tongue Medical every 5 Branch (five) minutes as needed for Chest pain. nitroglycer 2020-[id number] 1 Univers in 0.4 mg 1-23 tablet ity of sublingual 00:00: under the [place] tablet 00 tongue Medical every 5 Branch (five) minutes as needed for Chest pain. nitroglycer 2020-[id number] 1 Univers in 0.4 mg 1-23 tablet ity of sublingual 00:00: under the [place] tablet 00 tongue Medical every 5 Branch (five) minutes as needed for Chest pain. nitroglycer 2020-[id number] 1 Univers in 0.4 mg 1-23 tablet ity of sublingual 00:00: under the [place] tablet 00 tongue Medical every 5 Branch (five) minutes as needed for Chest pain. nitroglycer 2020-[id number] 1 Univers in 0.4 mg 1-23 tablet ity of sublingual 00:00: under the [place] tablet 00 tongue Medical every 5 Branch (five) minutes as needed for Chest pain. nitroglycer 2020-[id number] 1 Univers in 0.4 mg 1-23 tablet ity of sublingual 00:00: under the [place] tablet 00 tongue Medical every 5 Branch (five) minutes as needed for Chest pain. nitroglycer 2020-[id number] 1 Univers in 0.4 mg 1-23 tablet ity of sublingual 00:00: under the [place] tablet 00 tongue Medical every 5 Branch (five) minutes as needed for Chest pain. nitroglycer 2020-[id number] 1 Univers in 0.4 mg 1-23 tablet ity of sublingual 00:00: under the [place] tablet 00 tongue Medical every 5 Branch (five) minutes as needed for Chest pain. nitroglycer 2020-[id number] 1 Univers in 0.4 mg 1-23 tablet ity of sublingual 00:00: under the [place] tablet 00 tongue Medical every 5 Branch (five) minutes as needed for Chest pain. nitroglycer 2020-[id number] 1 Univers in 0.4 mg 1-23 tablet ity of sublingual 00:00: under the [place] tablet 00 tongue Medical every 5 Branch (five) minutes as needed for Chest pain. nitroglycer 2020-[id number] 1 Univers in 0.4 mg 1-23 tablet ity of sublingual 00:00: under the [place] tablet 00 tongue Medical every 5 Branch (five) minutes as needed for Chest pain. nitroglycer 2020-[id number] 1 Univers in 0.4 mg 1-23 tablet ity of sublingual 00:00: under the [place] tablet 00 tongue Medical every 5 Branch (five) minutes as needed for Chest pain. nitroglycer 2020-[id number] 1 Univers in 0.4 mg 1-23 tablet ity of sublingual 00:00: under the [place] tablet 00 tongue Medical every 5 Branch (five) minutes as needed for Chest pain. nitroglycer 2020-[id number] 1 Univers in 0.4 mg 1-23 tablet ity of sublingual 00:00: under the [place] tablet 00 tongue Medical every 5 Branch (five) minutes as needed for Chest pain. nitroglycer 2020-[id number] 1 Univers in 0.4 mg 1-23 tablet ity of sublingual 00:00: under the [place] tablet 00 tongue Medical every 5 Branch (five) minutes as needed for Chest pain. nitroglycer 2020-[id number] 1 Univers in 0.4 mg 1-23 tablet ity of sublingual 00:00: under the [place] tablet 00 tongue Medical every 5 Branch (five) minutes as needed for Chest pain. nitroglycer 2020-[id number] 1 Univers in 0.4 mg 1-23 tablet ity of sublingual 00:00: under the [place] tablet 00 tongue Medical every 5 Branch (five) minutes as needed for Chest pain. nitroglycer 2020-[id number] 1 Univers in 0.4 mg 1-23 tablet ity of sublingual 00:00: under the [place] tablet 00 tongue Medical every 5 Branch (five) minutes as needed for Chest pain. nitroglycer 2020-[id number] 1 Univers in 0.4 mg 1-23 tablet ity of sublingual 00:00: under the [place] tablet 00 tongue Medical every 5 Branch (five) minutes as needed for Chest pain. albuterol 2020-0 Yes [id number] 2{puff} Inhale 2 Univers 90 1-16 Puffs ity of mcg/actuati 00:00: every 6 [place] as on inhaler 00 (six) Medical hours as Branch needed for Wheezing or Shortness of Breath. albuterol 2020-0 Yes [id number] 2{puff} Inhale 2 Univers 90 1-16 Puffs ity of mcg/actuati 00:00: every 6 [place] as on inhaler 00 (six) Medical hours as Branch needed for Wheezing or Shortness of Breath. albuterol 2020-0 Yes [id number] 2{puff} Inhale 2 Univers 90 1-16 Puffs ity of mcg/actuati 00:00: every 6 [place] as on inhaler 00 (six) Medical hours as Branch needed for Wheezing or Shortness of Breath. albuterol 2020-0 Yes [id number] 2{puff} Inhale 2 [facility] 90 1-16 Puffs ity of mcg/actuati 00:00: every 6 [place] as on inhaler 00 (six) Medical hours as Branch needed for Wheezing or Shortness of Breath. albuterol 2020-0 Yes [id number] 2{puff} Inhale 2 [facility] 90 1-16 Puffs ity of mcg/actuati 00:00: every 6 [place] as on inhaler 00 (six) Medical hours as Branch needed for Wheezing or Shortness of Breath. albuterol 2020-0 Yes [id number] 2{puff} Inhale 2 Univers 90 1-16 Puffs ity of mcg/actuati 00:00: every 6 [place] as on inhaler 00 (six) Medical hours as Branch needed for Wheezing or Shortness of Breath. albuterol 2020-0 Yes [id number] 2{puff} Inhale 2 [facility] 90 1-16 Puffs ity of mcg/actuati 00:00: every 6 [place] as on inhaler 00 (six) Medical hours as Branch needed for Wheezing or Shortness of Breath. albuterol 2019-0 Yes [id number] 2{puff} Inhale 2 [facility] 90 1-16 Puffs ity of mcg/actuati 00:00: every 6 [place] as on inhaler 00 (six) Medical hours as Branch needed for Wheezing or Shortness of Breath. albuterol 2019-0 Yes [id number] 2{puff} Inhale 2 [facility] 90 1-16 Puffs ity of mcg/actuati 00:00: every 6 [place] as on inhaler 00 (six) Medical hours as Branch needed for Wheezing or Shortness of Breath. albuterol 2020-0 Yes [id number] 2{puff} Inhale 2 Univers 90 1-16 Puffs ity of mcg/actuati 00:00: every 6 [place] as on inhaler 00 (six) Medical hours as Branch needed for Wheezing or Shortness of Breath. albuterol 2020-0 Yes [id number] 2{puff} Inhale 2 [facility] 90 1-16 Puffs ity of mcg/actuati 00:00: every 6 [place] as on inhaler 00 (six) Medical hours as Branch needed for Wheezing or Shortness of Breath. albuterol 2020-0 Yes [id number] 2{puff} Inhale 2 [facility] 90 1-16 Puffs ity of mcg/actuati 00:00: every 6 [place] as on inhaler 00 (six) Medical hours as Branch needed for Wheezing or Shortness of Breath. albuterol 2020-0 Yes [id number] 2{puff} Inhale 2 [facility] 90 1-16 Puffs ity of mcg/actuati 00:00: every 6 [place] as on inhaler 00 (six) Medical hours as Branch needed for Wheezing or Shortness of Breath. albuterol 2020-0 Yes [id number] 2{puff} Inhale 2 [facility] 90 1-16 Puffs ity of mcg/actuati 00:00: every 6 [place] as on inhaler 00 (six) Medical hours as Branch needed for Wheezing or Shortness of Breath. albuterol 2020-0 Yes [id number] 2{puff} Inhale 2 [facility] 90 1-16 Puffs ity of mcg/actuati 00:00: every 6 [place] as on inhaler 00 (six) Medical hours as Branch needed for Wheezing or Shortness of Breath. albuterol 2020-0 Yes [id number] 2{puff} Inhale 2 [facility] 90 1-16 Puffs ity of mcg/actuati 00:00: every 6 [place] as on inhaler 00 (six) Medical hours as Branch needed for Wheezing or Shortness of Breath. albuterol 2020-0 Yes [id number] 2{puff} Inhale 2 [facility] 90 1-16 Puffs ity of mcg/actuati 00:00: every 6 [place] as on inhaler 00 (six) Medical hours as Branch needed for Wheezing or Shortness of Breath. albuterol 2020-0 Yes [id number] 2{puff} Inhale 2 [facility] 90 1-16 Puffs ity of mcg/actuati 00:00: every 6 [place] as on inhaler 00 (six) Medical hours as Branch needed for Wheezing or Shortness of Breath. albuterol 2020-0 Yes [id number] 2{puff} Inhale 2 [facility] 90 1-16 Puffs ity of mcg/actuati 00:00: every 6 [place] as on inhaler 00 (six) Medical hours as Branch needed for Wheezing or Shortness of Breath. albuterol 2020-0 Yes [id number] 2{puff} Inhale 2 [facility] 90 1-16 Puffs ity of mcg/actuati 00:00: every 6 [place] as on inhaler 00 (six) Medical hours as Branch needed for Wheezing or Shortness of Breath. albuterol 2020-0 Yes [id number] 2{puff} Inhale 2 [facility] 90 1-16 Puffs ity of mcg/actuati 00:00: every 6 [place] as on inhaler 00 (six) Medical hours as Branch needed for Wheezing or Shortness of Breath. albuterol Yes [id number] 2{puff} Inhale 2 [facility] 90 1-16 Puffs ity of mcg/actuati 00:00: every 6 [place] as on inhaler 00 (six) Medical hours as Branch needed for Wheezing or Shortness of Breath. albuterol Yes [id number] 2{puff} Inhale 2 [facility] 90 1-16 Puffs ity of mcg/actuati 00:00: every 6 [place] as on inhaler 00 (six) Medical hours as Branch needed for Wheezing or Shortness of Breath. albuterol Yes [id number] 2{puff} Inhale 2 [facility] 90 1-16 Puffs ity of mcg/actuati 00:00: every 6 [place] as on inhaler 00 (six) Medical hours as Branch needed for Wheezing or Shortness of Breath. albuterol Yes [id number] 2{puff} Inhale 2 [facility] 90 1-16 Puffs ity of mcg/actuati 00:00: every 6 [place] as on inhaler 00 (six) Medical hours as Branch needed for Wheezing or Shortness of Breath. albuterol Yes [id number] 2{puff} Inhale 2 [facility] 90 1-16 Puffs ity of mcg/actuati 00:00: every 6 [place] as on inhaler 00 (six) Medical hours as Branch needed for Wheezing or Shortness of Breath. albuterol Yes [id number] 2{puff} Inhale 2 [facility] 90 1-16 Puffs ity of mcg/actuati 00:00: every 6 [place] as on inhaler 00 (six) Medical hours as Branch needed for Wheezing or Shortness of Breath. levothyroxi 2019- Yes TK 1 T PO U nivers ne 75 mcg 2-31 QD ity of tablet 00:00: [address] Branch levothyroxi 2019- Yes TK 1 T PO U nivers ne 75 mcg 2-31 QD ity of tablet 00:00: [address] Branch levothyroxi 2018- Yes TK 1 T PO U nivers ne 75 mcg 2-31 QD ity of tablet 00:00: [address] Branch levothyroxi 2019- Yes TK 1 T PO U nivers ne 75 mcg 2-31 QD ity of tablet 00:00: [place] 00 [facility] levothyroxi 2019- Yes TK 1 T PO U nivers ne 75 mcg 2-31 QD ity of tablet 00:00: [place] [facility] levothyroxi 2018-10 Yes TK 1 T PO U nivers ne 75 mcg 2-31 QD ity of tablet 00:00: [address] levothyroxi 2018-10 Yes TK 1 T PO U nivers ne 75 mcg 2-31 QD ity of tablet 00:00: [place] [facility] levothyroxi 2018-10 Yes TK 1 T PO U nivers ne 75 mcg 2-31 QD ity of tablet 00:00: [address] levothyroxi 2018-10 Yes TK 1 T PO U nivers ne 75 mcg 2-31 QD ity of tablet 00:00: [address] levothyroxi 2018-10 Yes TK 1 T PO U nivers ne 75 mcg 2-31 QD ity of tablet 00:00: [address] levothyroxi 2018-10 Yes TK 1 T PO U nivers ne 75 mcg 2-31 QD ity of tablet 00:00: [address] levothyroxi 2018-10 Yes TK 1 T PO U nivers ne 75 mcg 2-31 QD ity of tablet 00:00: [address] levothyroxi 2018-10 Yes TK 1 T PO U nivers ne 75 mcg 2-31 QD ity of tablet 00:00: [address] levothyroxi 2018-10 Yes TK 1 T PO U nivers ne 75 mcg 2-31 QD ity of tablet 00:00: [address] levothyroxi 2018- Yes TK 1 T PO U nivers ne 75 mcg 2-31 QD ity of tablet 00:00: [address] levothyroxi 2018-10 Yes TK 1 T PO U nivers ne 75 mcg 2-31 QD ity of tablet 00:00: [address] levothyroxi 2018-10 Yes TK 1 T PO U nivers ne 75 mcg 2-31 QD ity of tablet 00:00: [address] levothyroxi 2018-10 Yes TK 1 T PO U nivers ne 75 mcg 2-31 QD ity of tablet 00:00: [address] levothyroxi 2019- Yes TK 1 T PO U nivers ne 75 mcg 2-31 QD ity of tablet 00:00: [place] [facility] levothyroxi 2019 Yes TK 1 T PO U nivers ne 75 mcg 2-31 QD ity of tablet 00:00: [place] [facility] levothyroxi 2018-10 Yes TK 1 T PO U nivers ne 75 mcg 2-31 QD ity of tablet 00:00: [place] [facility] levothyroxi 2018-10 Yes TK 1 T PO U nivers ne 75 mcg 2-31 QD ity of tablet 00:00: [place] [facility] levothyroxi 2018-10 Yes TK 1 T PO U nivers ne 75 mcg 2-31 QD ity of tablet 00:00: [address] levothyroxi 2018-10 Yes TK 1 T PO U nivers ne 75 mcg 2-31 QD ity of tablet 00:00: [address] levothyroxi 2018-10 Yes TK 1 T PO U nivers ne 75 mcg 2-31 QD ity of tablet 00:00: [address] levothyroxi 2018-10 Yes TK 1 T PO U nivers ne 75 mcg 2-31 QD ity of tablet 00:00: [address] levothyroxi 2018-10 Yes TK 1 T PO U nivers ne 75 mcg 2-31 QD ity of tablet 00:00: [address] DULoxetine 2018-10 Yes TK 1 C PO Un oseas 60 mg 2-27 D ity of capsule 00:00: [address] DULoxetine 2019 Yes TK 1 C PO Un oseas 60 mg 2-27 D ity of capsule 00:00: [address] DULoxetine 2019- Yes TK 1 C PO Un oseas 60 mg 2-27 D ity of capsule 00:00: [address] DULoxetine 2019- Yes TK 1 C PO Un oseas 60 mg 2-27 D ity of capsule 00:00: [address] DULoxetine 2018-10 Yes TK 1 C PO Un oseas 60 mg 2-27 D ity of capsule 00:00: [address] DULoxetine 2018-10 Yes TK 1 C PO Un oseas 60 mg 2-27 D ity of capsule 00:00: [address] DULoxetine 2018-10 Yes TK 1 C PO Un oseas 60 mg 2-27 D ity of capsule 00:00: [facility] DULoxetine 2018- Yes TK 1 C PO Un oseas 60 mg 2-27 D ity of capsule 00:00: [address] DULoxetine 2018-10 Yes TK 1 C PO Un oseas 60 mg 2-27 D ity of capsule 00:00: [address] DULoxetine 2018-10 Yes TK 1 C PO Un oseas 60 mg 2-27 D ity of capsule 00:00: [address] DULoxetine 2018- Yes TK 1 C PO Un oseas 60 mg 2-27 D ity of capsule 00:00: [address] DULoxetine 2018- Yes TK 1 C PO Un oseas 60 mg 2-27 D ity of capsule 00:00: [address] DULoxetine 2018- Yes TK 1 C PO Un oseas 60 mg 2-27 D ity of capsule 00:00: [address] DULoxetine 2018- Yes TK 1 C PO Un oseas 60 mg 2-27 D ity of capsule 00:00: [address] DULoxetine 2018- Yes TK 1 C PO Un oseas 60 mg 2-27 D ity of capsule 00:00: [address] DULoxetine 2018- Yes TK 1 C PO Un oseas 60 mg 2-27 D ity of capsule 00:00: [address] DULoxetine 2018- Yes TK 1 C PO Un oseas 60 mg 2-27 D ity of capsule 00:00: [address] DULoxetine 2018- Yes TK 1 C PO Un oseas 60 mg 2-27 D ity of capsule 00:00: [address] DULoxetine 2018- Yes TK 1 C PO Un oseas 60 mg 2-27 D ity of capsule 00:00: [address] DULoxetine 2018- Yes TK 1 C PO Un oseas 60 mg 2-27 D ity of capsule 00:00: [address] DULoxetine 2018- Yes TK 1 C PO Un oseas 60 mg 2-27 D ity of capsule 00:00: [address] DULoxetine 2018-10 Yes TK 1 C PO Un oseas 60 mg 2-27 D ity of capsule 00:00: [address] DULoxetine 2018- Yes TK 1 C PO Un oseas 60 mg 2-27 D ity of capsule 00:00: [facility] DULoxetine 2019- Yes TK 1 C PO Un oseas 60 mg 2-27 D ity of capsule 00:00: [facility] DULoxetine 2019- Yes TK 1 C PO Un oseas 60 mg 2-27 D ity of capsule 00:00: [facility] DULoxetine 2019- Yes TK 1 C PO Un oseas 60 mg 2-27 D ity of capsule 00:00: [facility] DULoxetine 2019- Yes TK 1 C PO Un oseas 60 mg 2-27 D ity of capsule 00:00: [facility] celecoxib 2019- Yes TK 1 C PO Uni vers 200 mg 2-23 D ity of capsule 00:00: [facility] celecoxib 2019- Yes TK 1 C PO Uni vers 200 mg 2-23 D ity of capsule 00:00: [place] [facility] celecoxib 2019- Yes TK 1 C PO Uni vers 200 mg 2-23 D ity of capsule 00:00: [place] [facility] celecoxib 2019- Yes TK 1 C PO Uni vers 200 mg 2-23 D ity of capsule 00:00: [place] [facility] celecoxib 2019- Yes TK 1 C PO Uni vers 200 mg 2-23 D ity of capsule 00:00: [place] [facility] celecoxib 2019- Yes TK 1 C PO Uni vers 200 mg 2-23 D ity of capsule 00:00: [place] [facility] celecoxib 2019- Yes TK 1 C PO Uni vers 200 mg 2-23 D ity of capsule 00:00: [place] [facility] celecoxib 2019- Yes TK 1 C PO Uni vers 200 mg 2-23 D ity of capsule 00:00: [place] [facility] celecoxib 2019- Yes TK 1 C PO Uni vers 200 mg 2-23 D ity of capsule 00:00: [place] [address] [facility] celecoxib 2019- Yes TK 1 C PO Uni vers 200 mg 2-23 D ity of capsule 00:00: [place] [facility] celecoxib 2019- Yes TK 1 C PO Uni vers 200 mg 2-23 D ity of capsule 00:00: [address] Branch celecoxib 2019- Yes TK 1 C PO Uni vers 200 mg 2-23 D ity of capsule 00:00: [place] [address] [facility] celecoxib 2019- Yes TK 1 C PO Uni vers 200 mg 2-23 D ity of capsule 00:00: [facility] celecoxib 2019- Yes TK 1 C PO Uni vers 200 mg 2-23 D ity of capsule 00:00: [facility] celecoxib 2019- Yes TK 1 C PO Uni vers 200 mg 2-23 D ity of capsule 00:00: [facility] celecoxib 2019- Yes TK 1 C PO Uni vers 200 mg 2-23 D ity of capsule 00:00: [facility] celecoxib 2019- Yes TK 1 C PO Uni vers 200 mg 2-23 D ity of capsule 00:00: [facility] celecoxib 2019- Yes TK 1 C PO Uni vers 200 mg 2-23 D ity of capsule 00:00: [facility] celecoxib 2019- Yes TK 1 C PO Uni vers 200 mg 2-23 D ity of capsule 00:00: [facility] celecoxib 2019- Yes TK 1 C PO Uni vers 200 mg 2-23 D ity of capsule 00:00: [facility] celecoxib 2019- Yes TK 1 C PO Uni vers 200 mg 2-23 D ity of capsule 00:00: [place] [facility] celecoxib 2019- Yes TK 1 C PO Uni vers 200 mg 2-23 D ity of capsule 00:00: [address] celecoxib 2019- Yes TK 1 C PO Uni vers 200 mg 2-23 D ity of capsule 00:00: [facility] celecoxib 2019- Yes TK 1 C PO Uni vers 200 mg 2-23 D ity of capsule 00:00: [facility] celecoxib 2019- Yes TK 1 C PO Uni vers 200 mg 2-23 D ity of capsule 00:00: [facility] celecoxib 2019- Yes TK 1 C PO Uni vers 200 mg 2-23 D ity of capsule 00:00: [facility] celecoxib 2019- Yes TK 1 C PO Uni vers 200 mg 2-23 D ity of capsule 00:00: [facility] metformin 2019- Yes TK 1 T PO Uni vers ER 500 mg 2-11 D IN THE ity of 24 hr 00:00: CLAUD[facility] WITH [place] tablet 00 [facility] metformin 2019- Yes TK 1 T PO Uni vers ER 500 mg 2-11 D IN THE ity of 24 hr 00:00: CLAUD[facility] WITH [place] tablet [facility] metformin 2019- Yes TK 1 T PO Uni vers ER 500 mg 2-11 D IN THE ity of 24 hr 00:00: [facility] WITH [place] tablet 00 [facility] metformin 2019- Yes TK 1 T PO Uni vers ER 500 mg 2-11 D IN THE ity of 24 hr 00:00: [facility] WITH [place] tablet 00 [facility] metformin 2019- Yes TK 1 T PO Uni vers ER 500 mg 2-11 D IN THE ity of 24 hr 00:00: CLAUD[facility] WITH [place] tablet [facility] metformin 2019- Yes TK 1 T PO Uni vers ER 500 mg 2-11 D IN THE ity of 24 hr 00:00: [facility] WITH [place] tablet 00 [facility] metformin 2019- Yes TK 1 T PO Uni vers ER 500 mg 2-11 D IN THE ity of 24 hr 00:00: CLAUD[facility] WITH [place] tablet 00 [facility] metformin 2018- Yes TK 1 T PO Uni vers ER 500 mg 2-11 D IN THE ity of 24 hr 00:00: [facility] WITH [place] tablet 00 [facility] metformin 2019- Yes TK 1 T PO Uni vers ER 500 mg 2-11 D IN THE ity of 24 hr 00:00: [facility] WITH [place] tablet 00 [facility] metformin 2019- Yes TK 1 T PO Uni vers ER 500 mg 2-11 D IN THE ity of 24 hr 00:00: [facility] WITH [place] tablet 00 [facility] metformin 2019- Yes TK 1 T PO Uni vers ER 500 mg 2-11 D IN THE ity of 24 hr 00:00: CLAUD[facility] WITH [place] tablet 00 [facility] metformin 2019- Yes TK 1 T PO Uni vers ER 500 mg 2-11 D IN THE ity of 24 hr 00:00: CLAUD[facility] WITH [place] tablet 00 [facility] metformin 2019- Yes TK 1 T PO Uni vers ER 500 mg 2-11 D IN THE ity of 24 hr 00:00: CLAUD[facility] WITH [place] tablet 00 [facility] metformin 2019- Yes TK 1 T PO Uni vers ER 500 mg 2-11 D IN THE ity of 24 hr 00:00: CLAUD[facility] WITH [place] tablet 00 [facility] metformin 2019- Yes TK 1 T PO Uni vers ER 500 mg 2-11 D IN THE ity of 24 hr 00:00: CLAUD[facility] WITH [place] tablet 00 [facility] metformin 2019-1 Yes TK 1 T PO Uni vers ER 500 mg 2-11 D IN THE ity of 24 hr 00:00: CLAUD[facility] WITH [place] tablet 00 [facility] metformin 2019- Yes TK 1 T PO Uni vers ER 500 mg 2-11 D IN THE ity of 24 hr 00:00: CLAUD[facility] WITH [place] tablet 00 [facility] metformin 2018- Yes TK 1 T PO Uni vers ER 500 mg 2-11 D IN THE ity of 24 hr 00:00: CLAUD[facility] WITH [place] tablet [facility] metformin 2018- Yes TK 1 T PO Uni vers ER 500 mg 2-11 D IN THE ity of 24 hr 00:00: CLAUD[facility] WITH [place] tablet [facility] metformin 2018- Yes TK 1 T PO Uni vers ER 500 mg 2-11 D IN THE ity of 24 hr 00:00: CLAUD[facility] WITH [place] tablet [facility] metformin 2018- Yes TK 1 T PO Uni vers ER 500 mg 2-11 D IN THE ity of 24 hr 00:00: CLAUD[facility] WITH [place] tablet [facility] metformin 2018- Yes TK 1 T PO Uni vers ER 500 mg 2-11 D IN THE ity of 24 hr 00:00: CLAUD[facility] WITH [place] tablet [facility] metformin 2018- Yes TK 1 T PO Uni vers ER 500 mg 2-11 D IN THE ity of 24 hr 00:00: CLAUDIA WITH [place] tablet [facility] metformin 2018- Yes TK 1 T PO Uni vers ER 500 mg 2-11 D IN THE ity of 24 hr 00:00: CLAUD[facility] WITH [place] tablet [facility] metformin 2019- Yes TK 1 T PO Uni vers ER 500 mg 2-11 D IN THE ity of 24 hr 00:00: CLAUDIA WITH [place] tablet [facility] metformin 2019- Yes TK 1 T PO Uni vers ER 500 mg 2-11 D IN THE ity of 24 hr 00:00: CLAUD[facility] WITH [place] tablet 00 [facility] metformin 2019- Yes TK 1 T PO Uni vers ER 500 mg 2-11 D IN THE ity of 24 hr 00:00: CLAUD[facility] WITH [place] tablet 00 [facility] omeprazole 2018- Yes TK 1 C PO Un oseas 40 mg 1-24 QD ity of capsule 00:00: [facility] omeprazole 2018- Yes TK 1 C PO Un oseas 40 mg 1-24 QD ity of capsule 00:00: [place] [facility] omeprazole 2019- Yes TK 1 C PO Un oseas 40 mg 1-24 QD ity of capsule 00:00: [place] [facility] omeprazole 2019- Yes TK 1 C PO Un oseas 40 mg 1-24 QD ity of capsule 00:00: [place] [facility] omeprazole 2019- Yes TK 1 C PO Un oseas 40 mg 1-24 QD ity of capsule 00:00: [place] [facility] omeprazole 2019- Yes TK 1 C PO Un oseas 40 mg 1-24 QD ity of capsule 00:00: [place] [facility] omeprazole 2019- Yes TK 1 C PO Un oseas 40 mg 1-24 QD ity of capsule 00:00: [address] omeprazole 2019- Yes TK 1 C PO Un oseas 40 mg 1-24 QD ity of capsule 00:00: [address] omeprazole 2019- Yes TK 1 C PO Un oseas 40 mg 1-24 QD ity of capsule 00:00: [address] omeprazole 2019- Yes TK 1 C PO Un oseas 40 mg 1-24 QD ity of capsule 00:00: [address] omeprazole 2019- Yes TK 1 C PO Un oseas 40 mg 1-24 QD ity of capsule 00:00: [address] omeprazole 2019- Yes TK 1 C PO Un oseas 40 mg 1-24 QD ity of capsule 00:00: [address] omeprazole 2019- Yes TK 1 C PO Un oseas 40 mg 1-24 QD ity of capsule 00:00: [facility] omeprazole 2019- Yes TK 1 C PO Un osesa 40 mg 1-24 QD ity of capsule 00:00: [address] omeprazole 2019- Yes TK 1 C PO Un oseas 40 mg 1-24 QD ity of capsule 00:00: [address] omeprazole 2019- Yes TK 1 C PO Un oseas 40 mg 1-24 QD ity of capsule 00:00: [address] omeprazole 2019- Yes TK 1 C PO Un oseas 40 mg 1-24 QD ity of capsule 00:00: [address] omeprazole 2019- Yes TK 1 C PO Un oseas 40 mg 1-24 QD ity of capsule 00:00: [address] Branch omeprazole 2018-10 Yes TK 1 C PO Un oseas 40 mg 1-24 QD ity of capsule 00:00: [facility] omeprazole 2018-10 Yes TK 1 C PO Un oseas 40 mg 1-24 QD ity of capsule 00:00: [place] [facility] omeprazole 2018-10 Yes TK 1 C PO Un oseas 40 mg 1-24 QD ity of capsule 00:00: [place] [facility] omeprazole 2018-10 Yes TK 1 C PO Un oseas 40 mg 1-24 QD ity of capsule 00:00: [place] [facility] omeprazole 2018-10 Yes TK 1 C PO Un oseas 40 mg 1-24 QD ity of capsule 00:00: [place] [facility] omeprazole 2018-10 Yes TK 1 C PO Un oseas 40 mg 1-24 QD ity of capsule 00:00: [place] [facility] omeprazole 2018-10 Yes TK 1 C PO Un oseas 40 mg 1-24 QD ity of capsule 00:00: [place] [facility] omeprazole 2018-10 Yes TK 1 C PO Un oseas 40 mg 1-24 QD ity of capsule 00:00: [place] [facility] omeprazole 2018-10 Yes TK 1 C PO Un oseas 40 mg 1-24 QD ity of capsule 00:00: [place] [facility] omeprazole Yes 40mg QD Take [address] (PRILOSEC) 4-29 by mouth [facility] 40 MG 13:29: daily. Medical capsule 29 Center tamsulosin Yes .4mg QD Take 0.[address] [facility] (FLOMAX) 4-29 mg by [facility] 0.4 mg Cp24 13:29: mouth Medic al 24 hr 29 daily. Center capsule losartan-hy Yes 1{tbl} QD Take [address] [facility] droCHLOROth 4-29 tablet by Gee es iazide 13:29: mouth Medical (HYZAAR) 29 daily. [place] 50-12.5 mg per tablet mometasone- Yes 2{puff} Q.5D Inhale [address] [facility] formoterol 4-29 puffs by [facility] (DULERA) 13:29: mouth via Medi sweta 100-5 29 inhaler 2 Center mcg/actuati (two) on inhaler times daily. oxybutynin Yes 5mg QD Take [address] [facility] (DITROPAN-X 4-29 by mouth Luke [facility] L) 5 MG 24 13:29: daily. Medic al hr tablet 29 Center levothyroxi Yes 75ug QD Take [address] [facility] ne 4-29 mcg by [facility] (SYNTHROID, 13:29: mouth Medic al LEVOTHROID) 29 daily. [place] 75 MCG tablet cholecalcif Yes 1000U QD Take 1,[address] [facility] geoff 4-29 Units by [facility] (VITAMIN 13:29: mouth Medical D3) 1,000 29 daily. Center unit tablet b complex Yes 1{capsu QD Take [address] [facility] vitamins 4-29 le} capsule by [employer] capsule 13:29: mouth Medical 29 daily. [place] magnesium Yes 30mg Q.5D Take [address] 30 mg 4-29 by mouth 2 [facility] tablet 13:29: (two) Medical 29 times Center daily. aspirin 81 Yes 81mg QD Take [address] MG EC 4-29 by mouth [facility] tablet 13:29: daily. Medical 29 Center omeprazole Yes 40mg QD Take [address] (PRILOSEC) 4-29 by mouth [facility] 40 MG 13:29: daily. Medical capsule 29 Center tamsulosin Yes .4mg QD Take 0.[address] [facility] (FLOMAX) 4-29 mg by [facility] 0.4 mg Cp24 13:29: mouth Medic al 24 hr 29 daily. Center capsule losartan-hy Yes 1{tbl} QD Take [address] droCHLOROth 4-29 tablet by [facility] ianatoe 13:29: mouth Medical (HYZAAR) 29 daily. Center 50-12.5 mg per tablet mometasone- 0 Yes 2{puff} Q.5D Inhale [address] [facility] formoterol 4-29 puffs by [facility] (DULERA) 13:29: mouth via Medi sweta 100-5 29 inhaler 2 Center mcg/actuati (two) on inhaler times daily. oxybutynin 0 Yes 5mg QD Take [address] [facility] [address] [facility] (DITROPAN-X 4-29 by mouth [facility] L) 5 MG 24 13:29: daily. Medic al hr tablet 29 Center levothyroxi Yes 75ug QD Take [address] [facility] ne 4-29 mcg by [employer] (SYNTHROID, 13:29: mouth Medic al LEVOTHROID) 29 daily. [place] 75 MCG tablet cholecalcif Yes 1000U QD Take 1,[address] [facility] geoff 4-29 Units by [employer] (VITAMIN 13:29: mouth Medical D3) 1,000 29 daily. [place] unit tablet b complex Yes 1{capsu QD Take [address] [facility] vitamins 4-29 le} capsule by [employer] capsule 13:29: mouth Medical 29 daily. [place] magnesium Yes 30mg Q.5D Take [address] 30 mg 4-29 by mouth 2 [facility] tablet 13:29: (two) Medical 29 times Center daily. aspirin 81 Yes 81mg QD Take [address] MG EC -29 by mouth [facility] tablet 13:29: daily. [address] rosuvastati 2016-10 Yes 2.5mg Take 0.5 U nivers n 5 mg 1-20 tablets by ity of tablet 00:00: mouth. [address] rosuvastati 2016-10 Yes 2.5mg Take 0.5 U nivers n 5 mg 1-20 tablets by ity of tablet 00:00: mouth. [address] rosuvastati 2016-10 Yes 2.5mg Take 0.5 U nivers n 5 mg 1-20 tablets by ity of tablet 00:00: mouth. [address] rosuvastati 2016-10 Yes 2.5mg Take 0.5 U nivers n 5 mg 1-20 tablets by ity of tablet 00:00: mouth. [address] rosuvastati 2016-10 Yes 2.5mg Take 0.5 U nivers n 5 mg 1-20 tablets by ity of tablet 00:00: mouth. [address] rosuvastati 2016-10 Yes 2.5mg Take 0.5 U nivers n 5 mg 1-20 tablets by ity of tablet 00:00: mouth. [address] rosuvastati 2016-10 Yes 10mg Take 10 mg [facility] n 5 mg 1-20 by mouth ity of tablet 00:00: daily. [address] rosuvastati 2016-10 Yes 10mg Take 10 mg Univers n 5 mg 1-20 by mouth ity of tablet 00:00: daily. [facility] rosuvastati 2016-10 Yes 10mg Take 10 mg Univers n 5 mg 1-20 by mouth ity of tablet 00:00: daily. [facility] rosuvastati 2016-10 Yes 10mg Take 10 mg Univers n 5 mg 1-20 by mouth ity of tablet 00:00: daily. [facility] rosuvastati 2016-10 Yes 10mg Take 10 mg Univers n 5 mg 1-20 by mouth ity of tablet 00:00: daily. [facility] rosuvastati 2016-10 Yes 10mg Take 10 mg Univers n 5 mg 1-20 by mouth ity of tablet 00:00: daily. [facility] rosuvastati 2016-10 Yes 10mg Take 10 mg Univers n 5 mg 1-20 by mouth ity of tablet 00:00: daily. [facility] rosuvastati 2016-10 Yes 10mg Take 10 mg Univers n 5 mg 1-20 by mouth ity of tablet 00:00: daily. [facility] rosuvastati 2016-10 Yes 10mg Take 10 mg Univers n 5 mg 1-20 by mouth ity of tablet 00:00: daily. [facility] rosuvastati 2016-10 Yes 10mg Take 10 mg Univers n 5 mg 1-20 by mouth ity of tablet 00:00: daily. [facility] rosuvastati 2016-10 Yes 10mg Take 10 mg Univers n 5 mg 1-20 by mouth ity of tablet 00:00: daily. [facility] rosuvastati 2016-10 Yes 10mg Take 10 mg Univers n 5 mg 1-20 by mouth ity of tablet 00:00: daily. [facility] rosuvastati 2016-10 Yes 10mg Take 10 mg Univers n 5 mg 1-20 by mouth ity of tablet 00:00: daily. [facility] rosuvastati 2016-10 Yes 10mg Take 10 mg Univers n 5 mg 1-20 by mouth ity of tablet 00:00: daily. [facility] rosuvastati 2016-10 Yes 2.5mg Take 0.5 U nivers n 5 mg 1-20 tablets by ity of tablet 00:00: mouth. [facility] rosuvastati 2016-10 Yes 2.5mg Take 0.5 U nivers n 5 mg 1-20 tablets by ity of tablet 00:00: mouth. [place] [facility] rosuvastati 2016-10 Yes 2.5mg Take 0.5 U nivers n 5 mg 1-20 tablets by ity of tablet 00:00: mouth. [place] [facility] rosuvastati 2016-10 Yes 2.5mg Take 0.5 U nivers n 5 mg 1-20 tablets by ity of tablet 00:00: mouth. [place] [facility] rosuvastati 2016-10 Yes 2.5mg Take 0.5 U nivers n 5 mg 1-20 tablets by ity of tablet 00:00: mouth. [place] [facility] rosuvastati 2016-10 Yes 2.5mg Take 0.5 U nivers n 5 mg 1-20 tablets by ity of tablet 00:00: mouth. [place] [facility] rosuvastati 2016-10 Yes 2.5mg Take 0.5 U nivers n 5 mg 1-20 tablets by ity of tablet 00:00: mouth. [place] [facility] tamsulosin 2016-10 Yes TK 1 C PO Un oseas 0.4 mg 24 0-23 QD ity of hr capsule 00:00: [place] [facility] tamsulosin 2016-10 Yes TK 1 C PO Un oseas 0.4 mg 24 0-23 QD ity of hr capsule 00:00: [place] [facility] tamsulosin 2016-10 Yes TK 1 C PO Un oseas 0.4 mg 24 0-23 QD ity of hr capsule 00:00: [place] [facility] tamsulosin 2016-10 Yes TK 1 C PO Un oseas 0.4 mg 24 0-23 QD ity of hr capsule 00:00: [place] [facility] tamsulosin 2016-10 Yes TK 1 C PO Un oseas 0.4 mg 24 0-23 QD ity of hr capsule 00:00: [place] [facility] tamsulosin 2016-10 Yes TK 1 C PO Un oseas 0.4 mg 24 0-23 QD ity of hr capsule 00:00: [place] [facility] tamsulosin 2016-10 Yes TK 1 C PO Un oseas 0.4 mg 24 0-23 QD ity of hr capsule 00:00: [place] [facility] tamsulosin 2016-10 Yes TK 1 C PO Un oseas 0.4 mg 24 0-23 QD ity of hr capsule 00:00: [facility] tamsulosin 2017 Yes TK 1 C PO Un oseas 0.4 mg 24 0-23 QD ity of hr capsule 00:00: [facility] tamsulosin 2017 Yes TK 1 C PO Un oseas 0.4 mg 24 0-23 QD ity of hr capsule 00:00: [facility] tamsulosin 2017 Yes TK 1 C PO Un oseas 0.4 mg 24 0-23 QD ity of hr capsule 00:00: [facility] tamsulosin 2017 Yes TK 1 C PO Un oseas 0.4 mg 24 0-23 QD ity of hr capsule 00:00: [facility] tamsulosin 2017 Yes TK 1 C PO Un oseas 0.4 mg 24 0-23 QD ity of hr capsule 00:00: [facility] tamsulosin 2017 Yes TK 1 C PO Un oseas 0.4 mg 24 0-23 QD ity of hr capsule 00:00: [facility] tamsulosin 2017 Yes TK 1 C PO Un oseas 0.4 mg 24 0-23 QD ity of hr capsule 00:00: [facility] tamsulosin 2017 Yes TK 1 C PO Un oseas 0.4 mg 24 0-23 QD ity of hr capsule 00:00: [facility] tamsulosin 2016-10 Yes TK 1 C PO Un oseas 0.4 mg 24 0-23 QD ity of hr capsule 00:00: [facility] tamsulosin 2017 Yes TK 1 C PO Un oseas 0.4 mg 24 0-23 QD ity of hr capsule 00:00: [facility] tamsulosin 2016-10 Yes TK 1 C PO Un oseas 0.4 mg 24 0-23 QD ity of hr capsule 00:00: [facility] tamsulosin 2016-10 Yes TK 1 C PO Un oseas 0.4 mg 24 0-23 QD ity of hr capsule 00:00: [facility] tamsulosin 2016-10 Yes TK 1 C PO Un oseas 0.4 mg 24 0-23 QD ity of hr capsule 00:00: [facility] tamsulosin 2016-10 Yes TK 1 C PO Un oseas 0.4 mg 24 0-23 QD ity of hr capsule 00:00: [facility] tamsulosin 2016-10 Yes TK 1 C PO Un oseas 0.4 mg 24 0-23 QD ity of hr capsule 00:00: [facility] tamsulosin 2016-10 Yes TK 1 C PO Un oseas 0.4 mg 24 0-23 QD ity of hr capsule 00:00: [facility] tamsulosin 2016-10 Yes TK 1 C PO Un oseas 0.4 mg 24 0-23 QD ity of hr capsule 00:00: [facility] tamsulosin 2016-10 Yes TK 1 C PO Un oseas 0.4 mg 24 0-23 QD ity of hr capsule 00:00: [place] [facility] tamsulosin 2016-10 Yes TK 1 C PO Un oseas 0.4 mg 24 0-23 QD ity of hr capsule 00:00: [facility] Colace 100 Yes Annmarie C 100 mg, 1 Memoria mg oral 9-25 Amin cap, PO, l capsule 14:39: BID, 20 [place] 46 cap, Substituti on Allowed, CAP Colace 100 Yes Annmarie C 100 mg, 1 Memoria mg oral 9-25 Amin cap, PO, l capsule 14:39: BID, 20 [place] 46 cap, Substituti on Allowed, CAP Colace 100 Yes Annmarie C 100 mg, 1 Memoria mg oral 9-25 Amin cap, PO, l capsule 14:39: BID, 20 [place] 46 cap, Substituti on Allowed, CAP Colace 100 Yes Annmarie C 100 mg, 1 Memoria mg oral 9-25 Amin cap, PO, l capsule 14:39: BID, 20 [place] 46 cap, Substituti on Allowed, CAP Colace 100 Yes Annmarie C 100 mg, 1 Memoria mg oral 9-25 Amin cap, PO, l capsule 14:39: BID, 20 [place] 46 cap, Substituti on Allowed, CAP Colace 100 Yes Annmarie C 100 mg, 1 Memoria mg oral 9-25 Amin cap, PO, l capsule 14:39: BID, 20 [place] 46 cap, Substituti on Allowed, CAP Colace 100 Yes Annmarie C 100 mg, 1 Memoria mg oral 9-25 Amin cap, PO, l capsule 14:39: BID, 20 [place] 46 cap, Substituti on Allowed, CAP Colace [...] Amin tab, PO, l 14:38: QID, PRN, [place] 03 40 tab, As needed for muscle spasms, Substituti on Allowed, TAB Robaxin-750 Yes Annmarie C 750 mg, 1 Memoria oral tablet 9-25 Amin tab, PO, l 14:38: QID, PRN, [place] 03 40 tab, As needed for muscle spasms, Substituti on Allowed, TAB Robaxin-750 Yes Annmarie C 750 mg, 1 Memoria oral tablet 9-25 Amin tab, PO, l 14:38: QID, PRN, [place] 03 40 tab, As needed for muscle [...] l oral tablet 14:36: 40 tab, as [place] 05 needed for pain, Substituti on Allowed, [...] l oral tablet 14:36: 40 tab, as [place] 05 needed for pain, Substituti on Allowed, Maintenanc e Lortab Yes Annmarie C 1 tab, PO, Me moria 7.5/500 9-25 Amin Q6H, PRN, l oral tablet 14:36: 40 tab, as [place] 05 needed for pain, Substituti on Allowed, [...] l oral tablet 14:36: 40 tab, as [place] 05 needed for pain, Substituti on Allowed, Maintenanc e solifenacin No Meng K 5 mg, Mem oria 9-25 [place] Route: PO, l 14:00: Drug form: [place] 00 TAB, Daily, Dosing Weight 91.42, kg, Start date: 07/22/13 9:00:00, Duration: 30 day, Stop date: 08/20/13 9:00:00 losartan No Meng K 100 mg, 2 Me moria 9-25 [place] tab, l 14:00: Route: PO, [place] 00 Drug form: TAB, Daily, Dosing Weight 91.42, kg, Start date: 07/22/13 9:00:00, Duration: 30 day, Stop date: 08/20/13 9:00:00 Cymbalta No Meng K 30 mg, 1 Mem [...] 30 day, Stop date: 08/20/13 9:00:00 solifenacin No Meng K 5 mg, Mem oria 9-25 Bindal Route: PO, l 14:00: Drug form: [place] 00 TAB, Daily, Dosing Weight 91.42, kg, Start date: 07/22/13 9:00:00, Duration: 30 day, Stop date: 08/20/13 9:00:00 losartan No Meng K 100 mg, 2 Me moria 9-25 Bindal tab, l 14:00: Route: PO, [place] 00 Drug form: TAB, Daily, Dosing Weight 91.42, [...] Bindal Route: PO, l 14:00: Drug form: [place] 00 TAB, Daily, Dosing Weight 91.42, kg, Start date: 07/22/13 9:00:00, Duration: 30 day, Stop date: 08/20/13 9:00:00 losartan 2012-0 No Meng K 100 mg, 2 Me moria 9-25 Bindal tab, l 14:00: Route: PO, [place] 00 Drug form: TAB, Daily, Dosing Weight 91.42, kg, Start date: 07/22/13 9:00:00, Duration: 30 day, Stop date: 08/20/13 9:00:00 Cymbalta 2012-0 No Meng K 30 mg, 1 Mem oria 9-25 B[place] cap, l 14:00: Route: PO, [place] 00 Drug form: DRC, Daily, Dosing Weight 91.42, kg, Start date: 07/22/13 9:00:00, Duration: 30 day, Stop date: 08/20/13 9:00:00 Detrol LA 2012-0 No Meng K 4 mg, 1 Mem oria 9-25 B[place] cap, l 14:00: Route: PO, [place] 00 Drug form: CAP, Daily, Start date: 07/22/13 9:00:00, Duration: 30 day, Stop date: 08/20/13 9:00:00 solifenacin 2012-0 No Meng K 5 mg, Mem oria 9-25 Bindal Route: PO, l 14:00: Drug form: [place] 00 TAB, Daily, Dosing Weight 91.42, kg, Start date: 07/22/13 9:00:00, Duration: 30 day, Stop date: 08/20/13 9:00:00 losartan 2012-0 No Meng K 100 mg, 2 Me moria 9-25 Bindal tab, l 14:00: Route: PO, [place] 00 Drug form: TAB, Daily, Dosing Weight 91.42, kg, Start date: 07/22/13 9:00:00, Duration: 30 day, Stop date: 08/20/13 9:00:00 Cymbalta 2012-0 No Meng K 30 mg, 1 Mem oria 9-25 B[place] cap, l 14:00: Route: PO, [place] 00 Drug form: DRC, Daily, Dosing Weight 91.42, kg, Start date: 07/22/13 9:00:00, Duration: 30 day, Stop date: 08/20/13 9:00:00 Detrol LA 2012-0 No Meng K 4 mg, 1 Mem oria 9-25 Bind[place] cap, l 14:00: Route: PO, [place] 00 Drug form: CAP, Daily, Start date: 07/22/13 9:00:00, Duration: 30 day, Stop date: 08/20/13 9:00:00 solifenacin 0 No Meng K 5 mg, Mem oria 9-25 Bindal Route: PO, l 14:00: Drug form: [place] 00 TAB, Daily, Dosing Weight 91.42, kg, Start date: 07/22/13 9:00:00, Duration: 30 day, Stop date: 08/20/13 9:00:00 losartan 2012-0 No Meng K 100 mg, 2 Me moria 9-25 Bindal tab, l 14:00: Route: PO, [place] 00 Drug form: TAB, Daily, Dosing Weight 91.42, [...] 9-25 B[place] cap, l 14:00: Route: PO, [place] 00 Drug form: CAP, Daily, Start date: 07/22/13 9:00:00, Duration: 30 day, Stop date: 08/20/13 9:00:00 solifenacin 2012-0 No Meng K 5 mg, Mem oria 9-25 Bindal Route: PO, l 14:00: Drug form: [place] 00 TAB, Daily, Dosing Weight 91.42, kg, Start date: 07/22/13 9:00:00, Duration: 30 day, Stop date: 08/20/13 9:00:00 losartan 2012-0 No Meng K 100 mg, 2 Me moria 9-25 Bindal tab, l 14:00: Route: PO, [place] 00 Drug form: TAB, Daily, Dosing Weight 91.42, kg, Start date: 07/22/13 9:00:00, Duration: 30 day, Stop date: 08/20/13 9:00:00 Cymbalta 2012-0 No Meng K 30 mg, 1 Mem oria 9-25 B[place] cap, l 14:00: Route: PO, Drug form: DRC, Daily, Dosing Weight 91.42, kg, Start date: 07/22/13 9:00:00, Duration: 30 day, Stop date: 08/20/13 9:00:00 Detrol [place] 0 No Meng K 4 mg, 1 Mem [...] 9-25 Bind[place] cap, l 14:00: Route: PO, [place] 00 Drug form: DRC, Daily, Dosing Weight 91.42, kg, Start date: 07/22/13 9:00:00, Duration: 30 day, Stop date: 08/20/13 9:00:00 Detrol LA 2012- No Meng K 4 mg, 1 Mem oria 9-25 B[place] cap, l 14:00: Route: PO, Drug form: CAP, Daily, Start date: 07/22/13 9:00:00, Duration: 30 day, Stop date: 08/20/13 9:00:00 levothyroxi No Meng K 75 Yariel mariza [...] Stop date: 08/19/13 21:00:00 carvedilol 2012-0 No Amankwudi 6.25 mg, 1 Memoria 9-25 Isidor Gordon tab, l 02:00: Route: PO, Drug form: TAB, Q12H, Dosing Weight 91.42, kg, Start date: 07/21/13 21:00:00, Duration: 30 day, Stop date: 08/20/13 9:00:00 simvastatin 2012-0 No Meng K 20 mg, 1 Memoria 9-25 Bindal tab, l 02:00: Route: PO, [place] 00 Drug form: TAB, Bedtime, Dosing Weight [...] 9-25 Bindal tab, l 02:00: Route: PO, [place] 00 Drug form: TAB, Bedtime, Dosing Weight 91.42, kg, Start date: 07/21/13 21:00:00, Duration: 30 day, Stop date: 08/19/13 21:00:00 carvedilol 2013-0 No Chukwudi 6.25 mg, 1 Memoria 9-25 Isidor Gordon tab, l 02:00: Route: PO, [place] 00 Drug form: TAB, Q12H, Dosing Weight [...] Isidor Gordon tab, l 02:00: Route: PO, [place] 00 Drug form: TAB, Q12H, Dosing Weight 91.42, kg, Start date: 07/21/13 21:00:00, Duration: 30 day, Stop date: 08/20/13 9:00:00 simvastatin 2012-0 No Meng K 20 mg, 1 Memoria 9-25 Bindal tab, l 02:00: Route: PO, [place] 00 Drug form: TAB, Bedtime, Dosing Weight [...] 9-25 Bindal tab, l 02:00: Route: PO, [place] 00 Drug form: TAB, Bedtime, Dosing Weight [...] l tablet 22:00: Route: PO, Yamilex nn Drug form: CAP, BID, Dosing Weight 91.42, [...] 9-24 B[place] cap, l 22:00: Route: PO, [place] 00 Drug form: CAP, BID, Dosing Weight [...] 9-24 B[place] cap, l 22:00: Route: PO, [place] 00 Drug form: CAP, BID, Dosing Weight [...] 30 day, Stop date: 08/20/13 9:00:00 hydrALAZINE No Chukwudi 20 mg, 1 Memoria [...] Gordon mL, Route: l 21:05: IVP, Drug [place] 00 Form: INJ, Dosing Weight 91.42, kg, [...] Gordon Route: IM, l 21:05: Drug form: [place] 00 PDR/INJ, PRN, Dosing Weight 91.42, kg, PRN Blood Glucose Results, Start date: 07/21/13 16:05:00, Duration: 30 day, Stop date: 08/20/13 16:04:00 Dextrose 2012-0 No Chukwudi 25 gm, 50 Memoria 50% Syringe 9-24 Isidor Gordon mL, Route: l 21:05: IVP, Drug [place] 00 Form: INJ, Dosing Weight 91.42, kg, [...] Gordon Route: IM, l 21:05: Drug form: [place] 00 PDR/INJ, PRN, Dosing Weight 91.42, kg, PRN Blood Glucose Results, Start date: 07/21/13 16:05:00, Duration: 30 day, Stop date: 08/20/13 16:04:00 Dextrose 2012-0 No Chukwudi 25 gm, 50 Memoria 50% Syringe 9-24 Isidor Gordon mL, Route: l 21:05: IVP, Drug [place] 00 Form: INJ, Dosing Weight 91.42, kg, PRN, PRN Blood Glucose Results, Start date: 07/21/13 16:05:00, Duration: 30 day, Stop date: 08/20/13 16:04:00 insulin 2012-0 No Chukwudi 8 unit, Mem oria aspart 9-24 Isidor Gordon 0.08 mL, l 21:05: Route: [place] 00 SUB-Q, Drug form: SOLN, TID-Before Meals, Dosing Weight 91.42, kg, PRN Blood Glucose Results, Start date: 07/21/13 16:05:00, Duration: 30 day, Stop date: 08/20/13 16:04:00 glucagon 2012-0 No Chukwudi 1 mg, Yariel mariza 9-24 Isidor Gordon Route: IM, l 21:05: Drug form: [place] PDR/INJ, PRN, Dosing Weight 91.42, kg, PRN [...] Isidor Gordon 0.08 mL, l 21:05: Route: [place] 00 SUB-Q, Drug form: SOLN, TID-Before Meals, Dosing Weight 91.42, kg, PRN Blood Glucose Results, Start date: 07/21/13 16:05:00, Duration: 30 day, Stop date: 08/20/13 16:04:00 glucagon 2012-0 No Chukwudi 1 mg, Yariel mariza 9-24 Isidor Gordon Route: IM, l 21:05: Drug form: [place] 00 PDR/INJ, PRN, Dosing Weight 91.42, kg, [...] Isidor Gordon 0.08 mL, l 21:05: Route: [place] 00 SUB-Q, Drug form: SOLN, TID-Before Meals, [...] Gordon mL, Route: l 21:05: IVP, Drug [place] 00 Form: INJ, Dosing Weight 91.42, kg, PRN, PRN Blood Glucose Results, Start date: 07/21/13 16:05:00, Duration: 30 day, Stop date: 08/20/13 16:04:00 insulin 2012-0 No Chukwudi 8 unit, Mem oria aspart 9-24 Isidor Gordon 0.08 mL, l 21:05: Route: [place] 00 SUB-Q, Drug form: SOLN, TID-Before Meals, Dosing Weight 91.42, kg, PRN Blood Glucose Results, Start date: 07/21/13 16:05:00, Duration: 30 day, Stop date: 08/20/13 16:04:00 glucagon 2012-0 No Chukwudi 1 mg, Yariel mariza 9-24 Isidor Gordon Route: IM, l 21:05: Drug form: [place] 00 PDR/INJ, PRN, Dosing Weight 91.42, kg, [...] Isidor Gordon 0.08 mL, l 21:05: Route: [place] 00 SUB-Q, Drug form: SOLN, TID-Before Meals, Dosing Weight 91.42, kg, PRN Blood Glucose Results, Start date: 07/21/13 16:05:00, Duration: 30 day, Stop date: 08/20/13 16:04:00 cefazolin 2013-0 No Meng K 1 gm, Memor ia (SCIP) 07-21 Bindal Route: l 21:00: IVPB, Drug [place] 00 form: INJ, Q8H, Dosing Weight 91.42, kg, Start date: 07/21/13 16:00:00, Duration: 1 doses or times, Stop date: 07/21/13 16:00:00 cefazolin No Meng K 1 gm, Memor ia (SCIP) 07-21 Bindal Route: l 21:00: IVPB, Drug [place] 00 form: INJ, Q8H, Dosing Weight 91.42, [...] 07-21 Bindal Route: l 21:00: IVPB, Drug [place] 00 form: INJ, Q8H, Dosing Weight 91.42, kg, Start date: 07/21/13 16:00:00, Duration: 1 doses or times, Stop date: 07/21/13 16:00:00 cefazolin 2012-0 No Meng K 1 gm, Memor ia (SCIP) 07-21 Bindal Route: l 21:00: IVPB, Drug [place] 00 form: INJ, Q8H, Dosing Weight 91.42, [...] 07-21 Bindal Route: l 21:00: IVPB, Drug [place] 00 form: INJ, Q8H, Dosing Weight 91.42, kg, Start date: 07/21/13 16:00:00, Duration: 1 doses or times, Stop date: 07/21/13 16:00:00 Cepastat No Meng K 1 loMaik faye emoria 07-21 Bindal Route: l 20:37: MUCOUS [place] 00 MEM, PRN, Drug form: CHRIS, PRN Sore Throat, Start date: 07/21/13 15:37:00, Duration: 30 day, Stop date: 08/20/13 15:36:00 Cepastat No Meng K 1 Maik de leon emoria 07-21 Bindal Route: l 20:37: MUCOUS [place] 00 MEM, PRN, Drug form: CHRIS, PRN Sore Throat, Start date: 07/21/13 15:37:00, Duration: 30 day, Stop date: 08/20/13 15:36:00 Cepastat No Meng K 1 stellazenMaik mendoza emoria 07-21 Bindal Route: l 20:37: MUCOUS [place] 00 MEM, PRN, Drug form: CHRIS, PRN Sore Throat, Start date: 07/21/13 15:37:00, Duration: 30 day, Stop date: 08/20/13 15:36:00 Cepastat No Meng K 1 lozenMaik mendoza emoria 07-21 B[place] Route: l 20:37: MUCOUS [place] 00 MEM, PRN, Drug form: CHRIS, PRN Sore Throat, Start date: 07/21/13 15:37:00, Duration: 30 day, Stop date: 08/20/13 15:36:00 Cepastat No Meng K 1 Maik de leon emoria 07-21 B[place] Route: l 20:37: MUCOUS [place] 00 MEM, PRN, Drug form: CHRIS, PRN Sore Throat, Start date: 07/21/13 15:37:00, Duration: 30 day, Stop date: 08/20/13 15:36:00 Cepastat No Meng K 1 Maik de loen emoria 07-21 B[place] Route: l 20:37: MUCOUS [place] 00 MEM, PRN, Drug form: CHRIS, PRN Sore Throat, Start date: 07/21/13 15:37:00, Duration: 30 day, Stop date: 08/20/13 15:36:00 Cepastat No Meng K 1 Maik de leon emoria 07-21 Bind[place] Route: l 20:37: MUCOUS [place] 00 MEM, PRN, Drug form: CHRIS, PRN Sore Throat, Start date: 07/21/13 15:37:00, Duration: 30 day, Stop date: 08/20/13 15:36:00 Cepastat No Meng K 1 Maik de leon emoria 07-21 B[place] Route: l 20:37: MUCOUS [place] 00 MEM, PRN, Drug form: CHRIS, PRN Sore Throat, Start date: 07/21/13 15:37:00, Duration: 30 day, Stop date: 08/20/13 15:36:00 cefazolin No Meng K 2 gm, 100 M emoria (SCIP) 07-21 Bindal mL, Route: l 20:30: IVPB, Drug [place] 00 form: INJ, ABXQ8H, Dosing Weight 91.42, kg, Start date: 07/21/13 15:30:00, Duration: 3 doses or times, Stop date: 07/22/13 7:30:00 cefazolin No Meng K 2 gm, 100 M emoria (SCIP) 9-24 Bindal mL, Route: l 20:30: IVPB, Drug [place] 00 form: INJ, ABXQ8H, Dosing Weight 91.42, kg, Start date: 07/21/13 15:30:00, Duration: 3 doses or times, Stop date: 07/22/13 7:30:00 cefazolin 2012-0 No Meng K 2 g[facility] B[place] mL, Route: l 20:30: IVPB, Drug [place] 00 form: INJ, ABXQ8H, Dosing Weight 91.42, kg, Start date: 07/21/13 15:30:00, Duration: 3 doses or times, Stop date: 07/22/13 7:30:00 cefazolin 2012- No Meng K 2 gm, 100 M [facility]) -24 Bindal mL, Route: l 20:30: IVPB, Drug [place] 00 form: INJ, ABXQ8H, Dosing Weight 91.42, kg, Start date: 07/21/13 15:30:00, Duration: 3 doses or times, Stop date: 07/22/13 7:30:00 cefazolin No Meng K 2 gm, 100 M [facility]) -24 B[place]al mL, Route: l 20:30: IVPB, Drug [place] 00 form: INJ, ABXQ8H, Dosing Weight 91.42, kg, Start date: 07/21/13 15:30:00, Duration: 3 doses or times, Stop date: 07/22/13 7:30:00 cefazolin 2012-0 No Meng K 2 gm, [facility] -[facility] B[place] mL, Route: l 20:30: IVPB, Drug [place] 00 form: INJ, ABXQ8H, Dosing Weight 91.42, kg, Start date: 07/21/13 15:30:00, Duration: 3 doses or times, Stop date: 07/22/13 7:30:00 [facility] 2012-0 [facility] Meng K 2 [facility] 9-24 Bindal mL, Route: l 20:30: IVPB, Drug [place] 00 form: INJ, ABXQ8H, Dosing Weight 91.42, kg, Start date: 07/21/13 15:30:00, Duration: 3 doses or times, Stop date: 07/22/13 7:30:00 cefazolin 2012-0 No Meng K 2 gm, 100 M emoria (SCIP) 9-24 Bindal mL, Route: l 20:30: IVPB, Drug [place] 00 form: INJ, ABXQ8H, Dosing Weight 91.42, kg, Start date: 07/21/13 15:30:00, Duration: 3 doses or times, Stop date: 07/22/13 7:30:00 dexamethaso 2012-0 No Meng K 4 mg, 1 M emoria ne 9-24 Bindal mL, Route: l 19:00: IVP, Drug [place] 00 form: INJ, ONCE, Start date: 07/21/13 14:00:00, Stop date: 07/21/13 14:00:00 dexamethaso 2012-0 No Meng K 4 mg, 1 M emoria ne 9-24 Bindal mL, Route: l 19:00: IVP, Drug [place] 00 form: INJ, ONCE, Start date: 07/21/13 14:00:00, Stop date: 07/21/13 14:00:00 dexamethaso 2012-0 No Meng K 4 mg, 1 M emoria ne 9-24 Bindal mL, Route: l 19:00: IVP, Drug [place] 00 form: INJ, ONCE, Start date: 07/21/13 14:00:00, Stop date: 07/21/13 14:00:00 dexamethaso 2012-0 No Meng K 4 mg, 1 M emoria ne 9-24 Bindal mL, Route: l 19:00: IVP, Drug [place] 00 form: INJ, ONCE, Start date: 07/21/13 14:00:00, Stop date: 07/21/13 14:00:00 dexamethaso 2012-0 No Meng K 4 mg, 1 M emoria ne 9-24 Bindal mL, Route: l 19:00: IVP, Drug [place] 00 form: INJ, ONCE, Start date: 07/21/13 14:00:00, Stop date: 07/21/13 14:00:00 dexamethaso 2013-0 No Meng K 4 mg, 1 M emoria ne 9-24 Bindal mL, Route: l 19:00: IVP, Drug [place] 00 form: INJ, ONCE, Start date: 07/21/13 14:00:00, Stop date: 07/21/13 14:00:00 dexamethaso 2013-0 No Meng K 4 mg, 1 M emoria ne 9-24 Bindal mL, Route: l 19:00: IVP, Drug [place] 00 form: INJ, ONCE, Start date: 07/21/13 14:00:00, Stop date: 07/21/13 14:00:00 dexamethaso 2013-0 No Meng K 4 mg, 1 M emoria ne 9-24 Bindal mL, Route: l 19:00: IVP, Drug [place] 00 form: INJ, ONCE, Start date: 07/21/13 14:00:00, Stop date: 07/21/13 14:00:00 ketorolac 2013-0 No Meng K 30 mg, 1 Me moria 9-24 Bindal mL, Route: l 17:00: IV, Drug [place] form: INJ, Q6H, Dosing Weight 91.42, kg, Start date: 07/21/13 12:00:00, Duration: 4 day, Stop date: 07/25/13 6:00:00 dexamethaso 2013-0 No Meng K 4 mg, Mem oria ne 9-24 Bindal Route: l 17:00: IVP, Q6H, [place] 00 Dosing Weight 91.42, kg, Start date: 07/21/13 12:00:00, Duration: 30 day, Stop date: 08/20/13 6:00:00 ketorolac 2013-0 No Meng K 30 mg, 1 Me moria 9-24 Bindal mL, Route: l 17:00: IV, Drug [place] 00 form: INJ, Q6H, Dosing Weight 91.42, kg, Start date: 07/21/13 12:00:00, Duration: 4 day, Stop date: 07/25/13 6:00:00 dexamethaso 2013-0 No Meng K 4 mg, Mem oria ne 9-24 Bindal Route: l 17:00: IVP, Q6H, [place] Dosing Weight 91.42, kg, Start date: 07/21/13 12:00:00, Duration: 30 day, Stop date: 08/20/13 6:00:00 ketorolac 2013-0 No Meng K 30 mg, 1 Me moria 9-24 Bindal mL, Route: l 17:00: IV, Drug [place] 00 form: INJ, Q6H, Dosing Weight 91.42, kg, Start date: 07/21/13 12:00:00, Duration: 4 day, Stop date: 07/25/13 6:00:00 dexamethaso 2013-0 No Meng K 4 mg, Mem oria ne 9-24 Bindal Route: l 17:00: IVP, Q6H, [place] 00 Dosing Weight 91.42, kg, Start date: [...] 9-24 Bindal Route: l 17:00: IVP, Q6H, [place] Dosing Weight 91.42, kg, Start date: 07/21/13 [...] 9-24 Bindal Route: l 17:00: IVP, Q6H, [place] 00 Dosing Weight 91.42, kg, Start date: 07/21/13 12:00:00, Duration: 30 day, Stop date: 08/20/13 6:00:00 ketorolac 2013-0 No Meng K 30 mg, 1 Me moria 9-24 Bindal mL, Route: l 17:00: IV, Drug [place] 00 form: INJ, Q6H, Dosing Weight 91.42, kg, Start date: 07/21/13 12:00:00, Duration: 4 day, Stop date: 07/25/13 6:00:00 dexamethaso 2012-0 No Meng K 4 mg, Mem oria ne 9-24 Bindal Route: l 17:00: IVP, Q6H, [place] 00 Dosing Weight 91.42, kg, Start date: 07/21/13 12:00:00, Duration: 30 day, Stop date: 08/20/13 6:00:00 ketorolac 2013-0 No Meng K 30 mg, 1 Me moria 9-24 Bindal mL, Route: l 17:00: IV, Drug [place] 00 form: INJ, Q6H, Dosing Weight 91.42, kg, Start date: 07/21/13 12:00:00, Duration: 4 day, Stop date: 07/25/13 6:00:00 dexamethaso 2013-0 No Meng K 4 mg, Mem oria ne 9-24 Bindal Route: l 17:00: IVP, Q6H, [place] 00 Dosing Weight 91.42, kg, Start date: 07/21/13 12:00:00, Duration: 30 day, Stop date: 08/20/13 6:00:00 flumazenil 2012- No [place] 0.2 mg, 2 M emoria [...] naloxone No [place] 0.04 mg, Yariel mariza 24 Bud 0.1 mL, l 16:14: Kyle Route: [place] 00 IVP, Drug form: INJ, Q2MIN, Dosing [...] & Vomiting, Start date: 07/21/13 11:14:00 acetaminoph 2012-0 No [place] 1,000 mg, Memoria en-10 mg/mL -24 Bud Route: IV, l INTRAVENOUS 16:14: Kyle Drug form: [place] solution 00 INJ, ONCE, Dosing Weight 91.42, [...] Bud 0.5 mL, l 16:14: Kyle Route: [place] 00 IVP, Drug form: INJ, Q5Min, Dosing Weight 91.42, kg, PRN Pain Score 7-10, Start date: 07/21/13 11:14:00, Duration: 5 doses or times, Stop date: Limited # of times naloxone No [place]aston 0.04 mg, Yariel mariza 24 Bud 0.1 mL, l 16:14: Kyle Route: [place] 00 IVP, Drug form: INJ, Q2MIN, Dosing [...] IV, l INTRAVENOUS 16:14: Kyle Drug form: [place] solution 00 INJ, ONCE, Dosing Weight 91.42, [...] Bud 0.5 mL, l 16:14: Kyle Route: [place] 00 IVP, Drug form: INJ, Q5Min, Dosing [...] 07-21 Bud Route: IV, l INTRAVENOUS 16:14: [place] Drug form: [place] solution 00 INJ, ONCE, [...] No Gaston 0.5 mg, Me moria ne - Bud 0.5 mL, l 16:14: Kyle Route: [...] IV, l INTRAVENOUS 16:14: [place] Drug form: [place] solution 00 INJ, ONCE, Dosing Weight 91.42, [...] naloxone No [place]aston 0.04 mg, Yariel mariza -24 Bud 0.1 mL, l 16:14: Kyle Route: [place] IVP, Drug form: INJ, Q2MIN, Dosing Weight [...] naloxone No [place]aston 0.04 mg, Yariel mariza 24 Bud 0.1 mL, l 16:14: Kyle Route: [place] 00 IVP, Drug form: INJ, Q2MIN, Dosing [...] IV, l INTRAVENOUS 16:14: [place] Drug form: [place] solution 00 INJ, ONCE, Dosing Weight 91.42, [...] No [place] 0.5 mg, Me moria ne - Bud 0.5 mL, l 16:14: Kyle Route: [place] 00 IVP, Drug form: INJ, Q5Min, Dosing [...] moria 07-21 Bud mL, Route: l 16:14: [place] IVP, [...] Bindal Rate: 75 l 1000ml 16:08: ml/hr, [place] (Premix) 00 Infuse 1,000 mL over: 13.3 hr, Route: IV, Dosing Weight 91.42 kg, Total Volume: 1,000, Start date: 07/21/13 11:08:00, Duration: 30 day, Stop date: 08/20/13 11:07:00 acetaminoph No Meng K 650 mg, 2 Memoria en 07-21 Bindal tab, l 16:08: Route: PO, [place] 00 Drug form: TAB, Q4H, Dosing Weight 91.42, kg, PRN Pain, Start date: 07/21/13 11:08:00, Duration: 30 day, Stop date: 08/20/13 11:07:00 Cepacol 2012- No Meng K 1 lozenge, Me moria Lozenge 07-21 Bindal Route: PO, l 16:08: PRN, PRN [place] 00 Sore Throat, Start date: 07/21/13 11:08:00, [...] 30 day, Stop date: 08/20/13 11:07:00 methocarbam 0 No Meng K 750 mg, 1 Memoria ol 9-24 Bindal tab, l 16:08: Route: PO, Drug form: TAB, Q6H, Dosing Weight 91.42, kg, PRN Muscle Spasms, Start date: 07/21/13 11:08:00, Duration: 30 day, Stop date: 08/20/13 11:07:00 methocarbam 2012- No Meng K 750 mg, M emoria ol + Sodium 07-21 Bindal 7.5 mL, l Chloride 16:08: Route: IV, [place] 0.9% IV 100 00 Drug form: mL INJ, Q6H, Dosing Weight 91.42, kg, PRN Muscle Spasms, Start date: 07/21/13 11:08:00, Duration: 30 day, Stop date: 08/20/13 11:07:00 [place] No Meng K 1 tab, Memoria 7.5/325 07-21 Bindal Route: PO, l oral tablet 16:08: Drug Form: [place] 00 TAB, Dosing Weight 91.42, kg, Q4H, [...] 30 day, Stop date: 08/20/13 11:07:00 Phenergan 2012- No Meng K 25 mg, 1 Me [...] 9-24 Bindal cap, l 16:08: Route: PO, [place] 00 Drug form: CAP, Bedtime, Dosing Weight 91.42, kg, PRN Sleep, Start date: 07/21/13 11:08:00, Duration: 30 day, Stop date: 08/20/13 11:07:00 bisacodyl No Meng K 10 mg, 2 Me moria 9-24 Bindal tab, l 16:08: Route: PO, [place] Drug form: ECTAB, Daily, Dosing Weight 91.42, kg, PRN Constipati on, Start date: 07/21/13 11:08:00, Duration: 30 day, Stop date: 08/20/13 11:07:00 methocarbam No Meng K 750 mg, 1 Memoria ol 9-24 Bindal tab, l 16:08: Route: PO, [place] Drug form: TAB, Q6H, Dosing Weight 91.42, [...] Duration: 30 day, Stop date: 08/20/13 11:07:00 [place] No Meng K 1 tab, Memoria 7.5/325 9-24 Bindal Route: PO, l oral tablet 16:08: Drug Form: [place] 00 TAB, Dosing Weight 91.42, kg, Q4H, PRN Pain, Start date: 07/21/13 11:08:00, Duration: 30 day, Stop date: 08/20/13 11:07:00 1/2NS + KCL No Meng K 1,000 mL, Memoria 20mEq/L 9-24 Bindal Rate: 75 l 1000ml 16:08: ml/hr, [place] (Premix) 00 Infuse 1,000 mL over: 13.3 [...] 30 day, Stop date: 08/20/13 11:07:00 Phenergan 2012- No Meng K 25 mg, 1 Me [...] Duration: 30 day, Stop date: 08/20/13 11:07:00 [place] 2012- No Meng K 1 tab, Memoria 7.5/325 07-21 B[place] Route: PO, l oral tablet 16:08: Drug Form: [place] 00 TAB, Dosing Weight 91.42, kg, Q4H, PRN Pain, Start date: 07/21/13 11:08:00, Duration: 30 day, Stop date: 08/20/13 11:07:00 1/2NS + KCL No Meng K 1,000 mL, Memoria 20mEq/L 07-21 [place] Rate: 75 l 1000ml 16:08: ml/hr, [place] (Premix) 00 Infuse 1,000 mL over: 13.3 hr, Route: IV, Dosing Weight 91.42 kg, Total Volume: 1,000, Start date: 07/21/13 11:08:00, Duration: 30 day, Stop date: 08/20/13 11:07:00 acetaminoph No Meng K 650 mg, 2 Memoria en 07-21 Bindal tab, l 16:08: Route: PO, [place] 00 Drug form: TAB, Q4H, Dosing Weight 91.42, kg, PRN Pain, Start date: 07/21/13 11:08:00, Duration: 30 day, Stop date: 08/20/13 11:07:00 Cepacol 2012- No Meng K 1 lozenge, Me moria Lozenge 07-21 B[place] Route: PO, l 16:08: PRN, PRN [place] 00 Sore Throat, Start date: 07/21/13 11:08:00, [...] Bindal mL, Route: l 16:08: IM, Drug [place] form: INJ, Q4H, Dosing Weight 91.42, kg, [...] 750 mg, M emoria ol + Sodium 07-21 B[place] 7.5 mL, l Chloride 16:08: Route: IV, Her culp 0.9% IV 100 00 Drug form: mL INJ, Q6H, Dosing Weight 91.42, kg, PRN Muscle Spasms, Start date: 07/21/13 11:08:00, Duration: 30 day, Stop date: 08/20/13 11:07:00 [place] No Meng K 1 tab, Memoria 7.5/325 07-21 B[place] Route: PO, l oral tablet 16:08: Drug Form: [place] 00 TAB, Dosing Weight 91.42, kg, Q4H, PRN Pain, Start date: 07/21/13 11:08:00, Duration: 30 day, Stop date: 08/20/13 11:07:00 1/2NS + KCL No Meng K 1,000 mL, [facility] 20mEq/L 9-24 B[place] Rate: 75 l 1000ml 16:08: ml/hr, [place] (Premix) 00 Infuse 1,000 mL over: 13.3 hr, Route: IV, Dosing Weight 91.42 kg, Total Volume: 1,000, Start date: 07/21/13 11:08:00, Duration: 30 day, Stop date: 08/20/13 11:07:00 acetaminoph 2012- No Meng K 650 mg, 2 Memoria en - [place] tab, l 16:08: Route: PO, [place] 00 Drug form: TAB, Q4H, Dosing Weight 91.42, kg, PRN Pain, Start date: 07/21/13 11:08:00, Duration: 30 day, Stop date: 08/20/13 11:07:00 Cepacol 2012- No Meng K 1 lozenge, Me moria Lozenge 07-21 B[place] Route: PO, l 16:08: PRN, PRN [place] 00 Sore Throat, Start date: 07/21/13 11:08:00, [...] Meng K 25 mg, 1 Me moria -24 Bind[place] mL, Route: l 16:08: IM, Drug [place] 00 form: INJ, Q4H, Dosing Weight 91.42, kg, PRN See Nurse's Notes, Start date: 07/21/13 11:08:00, Duration: 30 day, Stop date: 08/20/13 11:07:00, pain give with meperidine Ultram 50 No Meng K 100 mg, 2 M emoria mg oral -24 Bind[place] tab, l tablet 16:08: Route: PO, [place]ile[place] nn 00 Drug form: TAB, Q6H, Dosing Weight 91.42, kg, PRN Pain, Start date: 07/21/13 11:08:00, Duration: 30 day, Stop date: 08/20/13 11:07:00 acetaminoph 2012-0 No Meng K 2 tab, Me moria [...] Stop date: 08/20/13 11:07:00, nausea/vom iting temazepam 2012-0 No Meng K 30 mg, 1 Me moria 9-24 B[place] cap, l 16:08: Route: PO, [place] 00 Drug form: CAP, Bedtime, Dosing Weight 91.42, kg, PRN Sleep, Start date: 07/21/13 11:08:00, Duration: 30 day, Stop date: 08/20/13 11:07:00 bisacodyl 2012-0 No Meng K 10 mg, 2 Me moria 9-24 [place] tab, l 16:08: Route: PO, [place] 00 Drug form: ECTAB, Daily, Dosing Weight 91.42, kg, PRN Constipati on, Start date: 07/21/13 11:08:00, Duration: 30 day, Stop date: 08/20/13 11:07:00 methocarbam No Meng K 750 mg, 1 Memoria ol 9-24 B[place] tab, l 16:08: Route: PO, [place] 00 Drug form: TAB, Q6H, Dosing Weight [...] Duration: 30 day, Stop date: 08/20/13 11:07:00 [place] No Meng K 1 tab, Memoria 7.5/325 07-21 B[place] Route: PO, l oral tablet 16:08: Drug Form: [place] 00 TAB, Dosing Weight 91.42, kg, Q4H, [...] Meng K 1 lozenge, Me moria Lozenge -24 B[place] Route: PO, l 16:08: PRN, PRN [place] 00 Sore Throat, Start date: 07/21/13 11:08:00, Duration: 30 day, Stop date: 08/20/13 11:07:00 Maalox No Meng K 30 mL, [facility] Advanced - [place] Route: PO, l Regular 16:08: Drug Form: Herm billie Strength 00 SUSP, SUSP Dosing Weight 91.42, kg, Q4H, PRN Indigestio n, Start date: 07/21/13 11:08:00, Duration: 30 day, Stop date: 08/20/13 11:07:00 Phenergan No Meng K 25 mg, 1 Me moria -24 Bindal mL, Route: l 16:08: IM, Drug [place] 00 form: INJ, Q4H, Dosing Weight 91.42, kg, PRN See Nurse's Notes, Start date: 07/21/13 11:08:00, Duration: 30 day, Stop date: 08/20/13 11:07:00, pain give with meperidine Ultram 50 No Meng K 100 mg, 2 M emoria mg oral -24 Bindal tab, l tablet 16:08: Route: PO, Yamilex nn 00 Drug form: TAB, Q6H, Dosing Weight 91.42, kg, PRN Pain, Start date: 07/21/13 11:08:00, Duration: 30 day, Stop date: 08/20/13 11:07:00 acetaminoph No Meng K 2 tab, Me moria en-oxycodon -24 Bindal Route: PO, l e 325 mg-5 16:08: Drug Form: H ermann mg oral 00 TAB, tablet Dosing Weight 91.42, kg, Q4H, PRN Pain, Start date: 07/21/13 11:08:00, Duration: 30 day, Stop date: 08/20/13 11:07:00 meperidine No Meng K 100 mg, 2 Memoria -24 Bindal mL, Route: l 16:08: IM, Drug [place] 00 form: INJ, Q4H, Dosing Weight 91.42, [...] Duration: 30 day, Stop date: 08/20/13 11:07:00 [place] 2012- No Meng K 1 tab, Memoria 7.5/325 07-21 Bindal Route: PO, l oral tablet 16:08: Drug Form: [place] 00 TAB, Dosing Weight 91.42, kg, Q4H, [...] Bindal Route: PO, l 16:08: PRN, PRN [place] 00 Sore Throat, Start date: 07/21/13 11:08:00, Duration: 30 day, Stop date: 08/20/13 11:07:00 Maalox 2012- No Meng K 30 mL, Memoria Advanced 07-21 Bindal Route: PO, l Regular 16:08: Drug Form: Herm billie Strength 00 SUSP, SUSP Dosing Weight 91.42, kg, Q4H, PRN Indigestio n, Start date: 07/21/13 11:08:00, Duration: 30 day, Stop date: 08/20/13 11:07:00 Phenergan 2012- No Meng K 25 mg, 1 Me [...] Duration: 30 day, Stop date: 08/20/13 11:07:00 [place] No Meng K 1 tab, Memoria 7.5/325 07-21 Bindal Route: PO, l oral tablet 16:08: Drug Form: [place] 00 TAB, Dosing Weight 91.42, kg, Q4H, [...] Meng K 650 mg, 2 Memoria en - Bindal tab, l 16:08: Route: PO, [place] 00 Drug form: TAB, Q4H, Dosing Weight 91.42, kg, PRN Pain, Start date: 07/21/13 11:08:00, Duration: 30 day, Stop date: 08/20/13 11:07:00 Cepacol 2012- No Meng K 1 lozenge, Me moria Lozenge 07-21 Bindal Route: PO, l 16:08: PRN, PRN [place] 00 Sore Throat, Start date: 07/21/13 11:08:00, [...] Meng K 25 mg, 1 Me moria -24 Bindal mL, Route: l 16:08: IM, Drug [place] 00 form: INJ, Q4H, Dosing Weight 91.42, kg, PRN See Nurse's Notes, Start date: 07/21/13 11:08:00, Duration: 30 day, Stop date: 08/20/13 11:07:00, pain give with meperidine Ultram 50 No Meng K 100 mg, 2 M emoria mg oral -24 Bindal tab, l tablet 16:08: Route: PO, [...] 9-24 Bindal tab, l 16:08: Route: PO, [place] 00 Drug form: ECTAB, Daily, Dosing Weight 91.42, kg, PRN Constipati on, Start date: 07/21/13 11:08:00, Duration: 30 day, Stop date: 08/20/13 11:07:00 methocarbam No Meng K 750 mg, 1 Memoria ol 9-24 Bindal tab, l 16:08: Route: PO, [place] 00 Drug form: TAB, Q6H, Dosing Weight 91.42, kg, PRN Muscle Spasms, Start date: 07/21/13 11:08:00, Duration: 30 day, Stop date: 08/20/13 11:07:00 methocarbam No Meng K 750 mg, M emoria ol + Sodium 07-21 Bindal 7.5 mL, l Chloride 16:08: Route: IV, Her culp 0.9% IV 100 00 Drug form: mL INJ, Q6H, Dosing Weight 91.42, kg, PRN Muscle Spasms, Start date: 07/21/13 11:08:00, Duration: 30 day, Stop date: 08/20/13 11:07:00 [place] No Meng K 1 tab, Memoria 7.5/325 [...] 30 day, Stop date: 08/20/13 11:07:00 carvedilol Yes Substituti M emoria 6.25 mg 9-17 on Allowed l oral tablet 20:15: Slava maza 10 carvedilol Yes Substituti M emoria 6.25 mg 9-17 on Allowed l oral tablet 20:15: Slava maza Angelina carvedilol 2012- Yes Substituti M emoria 6.25 mg 9-17 on Allowed l oral tablet 20:15: Slava maza 10 carvedilol 2012-0 Yes Substituti M emoria 6.25 mg 9-17 on Allowed l oral tablet 20:15: Slava maza Angelina carvedilol Yes Substituti M emoria 6.25 mg 9-17 on Allowed l oral tablet 20:15: Slava maza Angelina carvedilol 2012- Yes Substituti M emoria 6.25 mg 9-17 on Allowed l oral tablet 20:15: Slava maza Angelina carvedilol Yes Substituti M emoria 6.25 mg 9-17 on Allowed l oral tablet 20:15: Slava maza Angelina carvedilol Yes Substituti M emoria 6.25 mg 9-17 on Allowed l oral tablet 20:15: Slava maza Angelina Lidoderm 5% Yes Substituti Memoria topical 9-17 [...] film 20:12: [place] (patch) 08 Cymbalta 30 2012- Yes Meng K 30 mg, 1 Memoria mg oral 9-17 Bindal cap, PO, l delayed 20:11: Daily, [place] release 28 Substituti capsule on Allowed Cymbalta 30 Yes Meng K 30 mg, 1 Memoria mg oral 9-17 Bindal cap, PO, l delayed 20:11: Daily, [place] release 28 Substituti capsule on Allowed Cymbalta 30 Yes Meng K 30 mg, 1 Memoria mg oral 9-17 Bindal cap, PO, l delayed 20:11: Daily, [place] release 28 Substituti capsule on Allowed Cymbalta [...] Bindal cap, PO, l delayed 20:11: Daily, [place] release 28 Substituti capsule on Allowed Cymbalta 30 Yes Meng K 30 mg, 1 Memoria mg oral 9-17 Bindal cap, PO, l delayed 20:11: Daily, [place] release 28 Substituti capsule on Allowed Cymbalta 30 Yes Meng K 30 mg, 1 Memoria mg oral 9-17 Bindal cap, PO, l delayed 20:11: Daily, [place] release 28 Substituti capsule on Allowed losartan Yes Meng K 100 mg, 1 Me moria 100 mg oral 9-17 Bindal tab, PO, l tablet 20:11: Daily, [place] 13 Substituti on Allowed losartan Yes Meng K 100 mg, 1 Me moria 100 mg oral 9-17 Bindal tab, PO, l tablet 20:11: Daily, [place] 13 Substituti on Allowed losartan Yes Meng K 100 mg, 1 Me moria 100 mg oral 9-17 Bindal tab, PO, l tablet 20:11: Daily, [place] 13 Substituti on Allowed losartan Yes Meng [...] Bindal tab, PO, l tablet 20:09: Daily, [place] 59 Substituti on Allowed VESIcare 5 Yes Meng K 5 mg, 1 Me moria mg oral 9-17 Bindal tab, PO, l tablet 20:09: Daily, [place] 59 Substituti on Allowed levothyroxi Yes Meng K 75 Yariel mariza ne 75 mcg 9-17 Bindal microgram, l (0.075 mg) 20:09: 1 tab, PO, H ermann oral tablet 46 Daily, Substituti on Allowed levothyroxi Yes Meng K 75 Yraiel mariza ne 75 mcg 9-17 Bindal microgram, [...] tablet 46 Daily, Substituti on Allowed metFORmin 2013-0 Yes 1,000 mg, Mem oria 500 mg oral 9-17 2 tab, PO, l tablet 20:09: Substitorjo Kaminski 23 on Allowed metFORmin 2012-0 Yes 1,000 mg, Mem oria 500 mg oral 9-17 2 tab, PO, l tablet 20:09: Substitutjo Kaminski 23 on Allowed metFORmin 2012-0 Yes 1,000 mg, Mem oria 500 mg oral 9-17 2 tab, PO, [facility] on Allowed metFORmin 2012-0 Yes 1,000 mg, Mem oria 500 mg oral 9-17 2 tab, PO, l tablet [facility] on Allowed metFORmin 2012-0 Yes 1,000 mg, Mem oria 500 mg oral 9-17 2 tab, PO, l tablet [facility]:09[facility] on Allowed metFORmin 2012-0 Yes 1,000 mg, Mem oria 500 mg oral 9-17 2 tab, PO, l tablet [facility]:09[facility] on Allowed metFORmin 2012-0 Yes 1,000 mg, Mem oria 500 mg oral 9-17 2 tab, PO, l tablet [facility]:09[facility] on Allowed metFORmin 2012-0 Yes 1,000 mg, Mem oria 500 mg oral 9-17 2 tab, PO, l tablet [facility]:09[facility] on Allowed aspirin 81 2012-0 Yes 81 mg, 1 Mem oria mg tablet, 9-17 tab, PO, l enteric 20:09: Daily, 0 Slava n coated 08 tab, Substituti on Allowed, ECTAB aspirin 81 2012-0 Yes 81 mg, 1 Mem oria mg tablet, 9-17 tab, PO, l enteric 20:09: Daily, 0 Slava n coated 08 tab, Substituti on Allowed, ECTAB aspirin 81 2012-0 Yes 81 mg, 1 Mem oria mg tablet, 9-17 tab, PO, l enteric 20:09: Daily, 0 Slava n coated 08 tab, Substituti on Allowed, ECTAB aspirin 81 2012-0 Yes 81 mg, 1 Mem oria mg tablet, 9-17 tab, PO, l enteric 20:09: Daily, 0 Slava n coated 08 tab, Substituti on Allowed, ECTAB aspirin 81 2012-0 Yes 81 mg, 1 Mem oria mg [...] Bindal tab, PO, l tablet 20:08: Bedtime, [place] 53 30 tab, Substituti on Allowed simvastatin Yes Meng K 20 mg, 1 Memoria 20 mg oral 9-17 Bindal tab, PO, l tablet 20:08: Bedtime, [place] 53 30 tab, Substituti on Allowed simvastatin Yes Meng K 20 mg, 1 Memoria 20 mg oral 9-17 Bindal tab, PO, l tablet 20:08: Bedtime, [place] 53 30 tab, Substituti on Allowed simvastatin Yes Meng K 20 mg, 1 Memoria 20 mg oral 9-17 Bindal tab, PO, l tablet 20:08: Bedtime, [place] 53 30 tab, Substituti on Allowed simvastatin [...] 53 30 tab, Substituti on Allowed omeprazole 2012-0 Yes PO, Daily, M emoria 9-17 Substituti l 20:08: on Allowed [place] 40 omeprazole 2012-0 Yes PO, Daily, M emoria 9-17 Substituti l 20:08: on Allowed [place] 40 omeprazole 2012-0 Yes PO, Daily, M emoria 9-17 Substituti l 20:08: on Allowed [place] 40 omeprazole 2012-0 Yes PO, Daily, M emoria 9-17 Substituti l 20:08: on Allowed [place] 40 omeprazole 2012-0 Yes PO, Daily, M emoria 9-17 Substituti l 20:08: on Allowed [place] 40 omeprazole 2012-0 Yes PO, Daily, M emoria 9-17 Substituti l 20:08: on Allowed [place] 40 omeprazole 2012-0 Yes PO, Daily, M emoria 9-17 Substituti l 20:08: on Allowed [place] 40 omeprazole 2012-0 Yes PO, Daily, M emoria 9-17 Substituti l 20:08: on Allowed [place] 40 gabapentin Yes Meng K 600 mg, 1 Memoria 600 mg oral 9-17 Bindal tab, PO, l tablet 20:08: BID, [place] 07 Substituti on Allowed gabapentin Yes Meng K 600 mg, 1 Memoria 600 mg oral 9-17 Bindal tab, PO, l tablet 20:08: BID, [place] 07 Substituti on Allowed gabapentin Yes Meng K 600 mg, 1 Memoria 600 mg oral 9-17 Bindal tab, PO, l tablet 20:08: BID, [place] 07 Substituti on Allowed gabapentin Yes Meng K 600 mg, 1 Memoria 600 mg oral 9-17 Bindal tab, PO, l tablet 20:08: BID, [place] 07 Substituti on Allowed gabapentin Yes Meng K 600 mg, 1 Memoria 600 mg oral 9-17 Bindal tab, PO, l tablet 20:08: BID, [place] 07 Substituti on Allowed gabapentin Yes Meng K [...] Bindal tab, PO, l tablet 20:08: BID, [place] Substituti on Allowed influenza No SYSTEM 0.5 mL, Mem oria virus 9-17 SYSTEM Route: IM, l vaccine, 19:52: Drug Form: Her culp inactivated 32 SUSP, ONCALL, Start date: 07/14/13 14:52:32, Stop date: 08/13/13 14:47:32 influenza No SYSTEM 0.5 mL, Mem oria virus 9-17 SYSTEM Route: IM, l vaccine, 19:52: Drug Form: Her culp inactivated 32 SUSP, ONCALL, Start date: 07/14/13 14:52:32, Stop date: 08/13/13 14:47:32 influenza No SYSTEM 0.5 mL, Mem oria virus 9-17 SYSTEM Route: IM, l vaccine, 19:52: Drug Form: Her culp inactivated 32 SUSP, ONCALL, Start date: 07/14/13 14:52:32, Stop date: 08/13/13 14:47:32 influenza No SYSTEM 0.5 mL, Mem oria virus 9-17 SYSTEM Route: IM, l vaccine, 19:52: Drug Form: Her culp inactivated 32 SUSP, ONCALL, Start date: 07/14/13 14:52:32, Stop date: 08/13/13 14:47:32 influenza No SYSTEM 0.5 mL, Mem oria virus 9-17 SYSTEM Route: IM, l vaccine, 19:52: Drug Form: Her culp inactivated 32 SUSP, ONCALL, Start date: 07/14/13 14:52:32, Stop date: 08/13/13 14:47:32 influenza No SYSTEM 0.5 mL, Mem oria [...] Filled Immunization Date Status Comments [facility] e Immunization Name Name SARS-COV-2 COVID-19 [...] Dose 2019-09-16 Completed Unive rsity of 00:00:00 [facility] Zoster Vaccine 2019-09-16 Completed University of Recombinant 00:00:00 [facility] Influenza High Dose 2019-09-16 Completed Unive rsity of 00:00:00 [facility] Zoster Vaccine 2019-09-16 Completed University of Recombinant 00:00:00 [facility] Influenza High Dose 2019-09-16 Completed Unive rsity of 00:00:00 [facility] Zoster Vaccine 2019-09-16 Completed University of Recombinant 00:00:00 [facility] Influenza High Dose 2019-09-16 Completed Unive rsity of 00:00:00 [facility] Zoster Vaccine 2019-09-16 Completed University of Recombinant 00:00:00 [facility] Influenza High Dose 2019-09-16 Completed Unive rsity of 00:00:00 [facility] Zoster Vaccine 2019-09-16 Completed University of Recombinant 00:00:00 [facility] Influenza High Dose 2019-09-16 Completed Unive rsity of 00:00:00 [facility] Zoster Vaccine 2019-09-16 Completed University of Recombinant 00:00:00 [facility] Influenza High Dose 2019-09-16 Completed Unive rsity of 00:00:00 [facility] Zoster Vaccine 2019-09-16 Completed University of Recombinant 00:00:00 [facility] Influenza High Dose 2019-09-16 Completed Unive rsity of 00:00:00 [facility] Zoster Vaccine 2019-09-16 Completed [facility] of Recombinant 00:00:00 [facility] Influenza High Dose 2019-09-16 Completed Unive rsity of 00:00:00 [facility] Zoster Vaccine 2019-09-16 Completed [facility] of Recombinant 00:00:00 [facility] Influenza High Dose 2019-09-16 Completed Unive rsity of 00:00:00 [facility] Zoster Vaccine 2019-09-16 Completed [facility] of Recombinant 00:00:00 [facility] Influenza High Dose 2019-09-16 Completed Unive rsity of 00:00:00 [facility] Zoster Vaccine 2019-09-16 Completed [facility] of Recombinant 00:00:00 [facility] Influenza High Dose 2019-09-16 Completed Unive rsity of 00:00:00 [facility] Zoster Vaccine 2019-09-16 Completed [facility] of Recombinant 00:00:00 [facility] Influenza High Dose 2019-09-16 Completed Unive rsity of 00:00:00 [facility] Zoster Vaccine 2019-09-16 Completed [facility] of Recombinant 00:00:00 [facility] Influenza High Dose 2019-09-16 Completed Unive rsity of 00:00:00 [facility] Zoster Vaccine 2019-09-16 Completed [facility] of Recombinant 00:00:00 [facility] Influenza High Dose 2019-09-16 Completed [facility]ive rsity of 00:00:00 [facility] Zoster Vaccine 2019-09-16 Completed [facility] of Recombinant 00:00:00 [facility] Influenza High Dose 2019-09-16 Completed Unive rsity of 00:00:00 [facility] Zoster Vaccine 2019-09-16 Completed [facility] of Recombinant 00:00:00 [facility] Influenza High Dose 2019-09-16 Completed Unive rsity of 00:00:00 [facility] Zoster Vaccine 2019-09-16 Completed [facility] of Recombinant 00:00:00 [facility] Influenza High Dose 2019-09-16 Completed Unive rsity of 00:00:00 [facility] Zoster Vaccine 2019-09-16 Completed [facility] of Recombinant 00:00:00 [facility] Influenza High Dose 2019-09-16 Completed Unive rsity of 00:00:00 [facility] Zoster Vaccine 2019-09-16 Completed [facility] of Recombinant 00:00:00 [facility] Influenza High Dose 2019-09-16 Completed Unive rsity of 00:00:00 [facility] Zoster Vaccine 2019-09-16 Completed [facility] of Recombinant 00:00:00 [facility] Influenza High Dose 2019-09-16 Completed Unive rsity of 00:00:00 [facility] Zoster Vaccine 2019-09-16 Completed [facility] of Recombinant 00:00:00 [facility] Influenza High Dose 2019-09-16 Completed Unive rsity of 00:00:00 [facility] Zoster Vaccine 2019-09-16 Completed [facility] of Recombinant 00:00:00 [facility] Influenza High Dose 2019-09-16 Completed Unive rsity of 00:00:00 [facility] Zoster Vaccine 2019-09-16 Completed [facility] of Recombinant 00:00:00 [facility] Influenza High Dose 2019-09-16 Completed Unive rsity of 00:00:00 [facility] Zoster Vaccine 2019-09-16 Completed [facility] of Recombinant 00:00:00 [facility] Influenza High Dose 2019-09-16 Completed Unive rsity of 00:00:00 [facility] Zoster Vaccine 2019-09-16 Completed [facility] of Recombinant 00:00:00 [facility] Influenza High Dose 2019-09-16 Completed Unive rsity of 00:00:00 [facility] Zoster Vaccine 2019-09-16 Completed [facility] of Recombinant 00:00:00 [facility] Influenza High Dose 2019-09-16 Completed Unive rsity of 00:00:00 [facility] Zoster Vaccine 2019-09-16 Completed University of Recombinant 00:00:00 [facility] Pneumococcal 13 2017-08-21 Completed Universit y of Conjugate, PCV13 00:00:00 [facility] dical (Prevnar 13) Branch Pneumococcal 13 2017-08-21 Completed Universit y of Conjugate, PCV13 00:00:00 [place] [facility] (Prevnar 13) [facility] Pneumococcal 13 2017-08-21 Completed Universit y of Conjugate, PCV13 00:00:00 [place] [facility] (Prevnar 13) Branch Pneumococcal 13 2017-08-21 Completed Universit y of Conjugate, PCV13 00:00:00 [place] [facility] (Prevnar 13) Branch Pneumococcal 13 2017-08-21 Completed Universit y of Conjugate, PCV13 00:00:00 [place] [facility] (Prevnar 13) Branch Pneumococcal 13 2017-08-21 Completed Universit y of Conjugate, PCV13 00:00:00 [facility] dical (Prevnar 13) Branch Pneumococcal 13 2017-08-21 [...] 00:00:00 [place] [facility] (Prevnar 13) Branch Vital Signs Vital Name Observation Time Observation Value Comments Source Systolic blood 2023-02-25 19:26:00 127 mm[Hg] Univer sity of pressure [facility] Diastolic blood 2023-02-25 19:26:00 70 mm[Hg] Unive rsity of pressure [facility] Heart rate 2023-02-25 19:26:00 107 /min [facility] Body temperature 2023-02-25 19:26:00 36.83 [place] Univ ers[facility] Respiratory rate 2023-02-25 19:26:00 18 /min Univ ersity of [facility] Body height 2023-02-25 19:26:00 172.7 cm [facility] Body weight 2023-02-25 19:26:00 90.266 kg [facility] BMI 2023-02-25 19:26:00 30.26 kg/m2 [facility] Systolic blood 2023-02-06 15:15:00 112 mm[Hg] Univer [facility]ity of pressure [facility] Diastolic blood 2023-02-06 15:15:00 71 mm[Hg] Unive rsity of pressure [facility] Heart rate 2023-02-06 15:15:00 100 /min [facility] Body temperature 2023-02-06 15:15:00 36.28 [place] [facility] Respiratory rate 2023-02-06 15:15:00 16 /min Univ ersity of [facility] Body height 2023-02-06 15:15:00 172.7 cm [facility] Body weight 2023-02-06 15:15:00 91.627 kg [facility] BMI 2023-02-06 15:15:00 30.71 kg/m2 [facility] Oxygen saturation in 2023-02-06 15:15:00 97 /min University Arterial blood by [facility] Pulse oximetry Branch Systolic blood 2023-01-10 23:16:00 111 mm[Hg] Univer sity of pressure [facility] Diastolic blood 2023-01-10 23:16:00 63 mm[Hg] Unive rsity of pressure [facility] Heart rate 2023-01-10 23:16:00 78 /min [facility] Body temperature 2023-01-10 23:16:00 36.39 [place] Univ ers[facility] Respiratory rate 2023-01-10 23:16:00 20 /min Univ ersity of [facility] Body height 2023-01-10 23:16:00 172.7 cm [facility] Body weight 2023-01-10 23:16:00 90.493 kg [facility] BMI 2023-01-10 23:16:00 30.33 kg/m2 [facility] Oxygen saturation in 2023-01-10 23:16:00 96 /min University of Arterial blood by [place] [employer] [facility] Pulse oximetry Branch Systolic blood 2022-08-29 14:46:00 137 mm[Hg] Univer sity of pressure [facility] Diastolic blood 2022-08-29 14:46:00 83 mm[Hg] Unive rsity of pressure [facility] Heart rate 2022-08-29 14:46:00 92 /min [facility] Body temperature 2022-08-29 14:46:00 36.61 [place] Univ ers[facility] Body height 2022-08-29 14:46:00 175.3 cm [facility] Body weight 2022-08-29 14:46:00 93.396 kg [facility] BMI 2022-08-29 14:46:00 30.41 kg/m2 [facility] Systolic blood 2022-07-27 02:30:00 151 mm[Hg] Univer sity of pressure [facility] Diastolic blood 2022-07-27 02:30:00 60 mm[Hg] Unive rsity of pressure [facility] Heart rate 2022-07-27 02:30:00 76 /min [facility] Body temperature 2022-07-27 02:30:00 36.89 [place] Univ ers[facility] Respiratory rate 2022-07-27 02:30:00 16 /min Univ ersity of [facility] Oxygen saturation in 2022-07-27 02:30:00 97 /min University of Arterial blood by [employer] Pulse oximetry Branch Body weight 2022-07-26 23:23:00 92.08 kg [facility]i [facility] BMI 2022-07-26 23:23:00 30.87 kg/m2 [facility] Systolic blood 2022-06-27 14:26:00 125 mm[Hg] Univer sity of pressure [facility] Diastolic blood 2022-06-27 14:26:00 75 mm[Hg] Unive rsity of pressure [facility] Heart rate 2022-06-27 14:26:00 102 /min Universi ty of [facility] Body temperature 2022-06-27 14:26:00 36.56 [facility] Respiratory rate 2022-06-27 14:26:00 18 /min [facility] Body height 2022-06-27 14:26:00 172.7 cm [facility] [place] Body weight 2022-06-27 14:26:00 92.08 kg [facility] BMI 2022-06-27 14:26:00 30.87 kg/m2 Universi [facility] Oxygen saturation in 2022-06-27 14:26:00 99 /min [facility] Arterial blood by [facility] Pulse oximetry Branch Systolic (mm Hg) 2022-02-13 16:45:00 Yariel rial [place] Diastolic (mm Hg) 2022-02-13 16:45:00 Mem orial [place] Heart Rate 2022-02-13 16:45:00 [facility] Respitory Rate 2022-02-13 16:45:00 Memori al [place] Height 2022-02-13 16:45:00 167.64 cm [facility] Weight 2022-02-13 16:45:00 [facility] [place] BMI Calculated 2022-02-13 16:45:00 Memori al [place] Systolic (mm Hg) 2021-10-16 16:45:00 Yariel rial [place] Diastolic (mm Hg) 2021-10-16 16:45:00 Mem orial [place] Heart Rate 2021-10-16 16:45:00 [facility] [place] Respitory Rate 2021-10-16 16:45:00 Memori al [place] Height 2021-10-16 16:45:00 167.64 cm [facility] Weight 2021-10-16 16:45:00 [facility] BMI Calculated 2021-10-16 16:45:00 Memori al [place] Systolic (mm Hg) 2021-09-18 21:13:00 Yariel rial [place] Diastolic (mm Hg) 2021-09-18 21:13:00 Mem orial [place] Heart Rate 2021-09-18 21:13:00 [facility] [place] Respitory Rate 2021-09-18 21:13:00 Memori al [place] Height 2021-09-18 21:13:00 162.56 cm [facility] Weight 2021-09-18 21:13:00 [facility] [place] BMI Calculated 2021-09-18 21:13:00 Memori al [place] Systolic (mm Hg) 2021-09-18 20:58:00 Yariel rial [place] Diastolic (mm Hg) 2021-09-18 20:58:00 Mem orial [place] Heart Rate 2021-09-18 20:58:00 [facility] [place] Respitory Rate 2021-09-18 20:58:00 Memori al [place] Height 2021-09-18 20:58:00 162.56 cm [facility] Weight 2021-09-18 20:58:00 [facility] BMI Calculated 2021-09-18 20:58:00 Memori al [place] Systolic (mm Hg) 2021-08-15 20:09:00 Yariel rial [place] Diastolic (mm Hg) 2021-08-15 20:09:00 Mem orial [place] Heart Rate 2021-08-15 20:09:00 [facility] [place] Respitory Rate 2021-08-15 20:09:00 Memori al [place] Height 2021-08-15 20:09:00 165.1 cm [facility] [place] Weight 2021-08-15 20:09:00 [facility] [place] BMI Calculated 2021-08-15 20:09:00 Memori al [place] Diastolic (mm Hg) 2013-07-22 13:00:00 Mem orial [place] Systolic (mm Hg) 2013-07-22 13:00:00 Yariel rial [place] Respitory Rate 2013-07-22 13:00:00 Memori al [place] Heart Rate 2013-07-22 13:00:00 [facility] Temperature Oral (F) 2013-07-22 13:00:00 97.4 F [facility] [place] Diastolic (mm Hg) 2013-07-22 10:07:00 Mem orial [place] Heart Rate 2013-07-22 10:07:00 [facility] [place] Respitory Rate 2013-07-22 10:07:00 Misha jean [place] Systolic (mm Hg) 2013-07-22 10:07:00 Yariel scott [place] Temperature Oral (F) 2013-07-22 10:07:00 97.9 F [facility] [place] Heart Rate 2013-07-22 05:00:00 [facility] [place] Temperature Oral (F) 2013-07-22 05:00:00 97.5 F [facility] [place] Diastolic (mm Hg) 2013-07-22 05:00:00 Mem orial [place] Systolic (mm Hg) 2013-07-22 05:00:00 Yariel marizal [place] Respitory Rate 2013-07-22 05:00:00 Misha jean [place] Weight 2013-07-14 17:54:00 [facility] [place] Height 2013-07-14 17:54:00 175.26 cm [facility] Procedures Procedure Date / Time Performing Clinician Source Performed POCT URINALYSIS W/O 2023-02-25 19:41:00 Bishnu Wright [facility] SPECIFIC GRAVITY Medical Branch PATIENT QUESTIONNAIRE 2023-02-25 05:01:00 [facility] EXTERNAL PROVIDER RECORDS 2023-02-13 05:01:00 Doctor Unassigned, [facility] Name [facility] XR CHEST 2 VW 2023-01-10 23:42:00 [facility] Medical Branch SARS-COV-2 COVID-19 2022-08-29 15:43:55 Spike Tapia [facility] VACCINE 12 YRS+, BIVALENT Medica l Branch 0.5ML, IM (MODERNA BOOSTER) ASSIGNMENT OF BENEFITS 2022-08-29 14:24:33 Doctor Unassigned, [facility] Name Medical Branch XR CHEST 1 VW 2022-07-27 00:50:00 Quinton Wilson [facility] COMP. METABOLIC PANEL 2022-07-27 00:36:00 Quinton Wilson [facility] ([id number]) Medical Branch CBC WITH DIFF 2022-07-27 00:36:00 Quinton Wilson [facility] N-TERMINAL PRO-BNP 2022-07-27 00:36:00 Quinton [facility] COVID-19 (ID NOW RAPID 2022-07-27 00:36:00 Quinton Wilson [facility] TESTING) [facility] NOTICE OF PRIVACY 2022-07-26 23:06:52 Doctor Johana, [facility] PRACTICES [place] [facility] CONSENT/REFUSAL FOR 2022-07-26 23:06:32 Doctor Unassjose, [facility] DIAGNOSIS AND TREATMENT [place] [facility] Gallbladder operation [facility] Knee [facility] CEIOL - Cataract [facility] extraction and insertion of intraocular lens Appendectomy [facility] Cervical discectomy [facility] Abdominal hysterectomy [facility] Appendectomy [facility] CEIOL - Cataract [facility] extraction and insertion of intraocular lens Cholecystectomy [facility] Knee replacement [facility] Encounters Start End Encounter Admission Attending Care Care Encounter Source Date/Time Date/Time Type Type Clinicians Facility Department ID 2023-03-23 2023-03-23 Outpatient R KELLY [facility] [id number] Univers 13:00:00 13:00:00 ATTENDING inga [facility] 2023-02-25 2023-02-25 Outpatient R BISHNU WRIGHT [facility] [id number] Univers 14:30:00 15:16:11 BISHNU WRIGHT [facility] 2023-02-25 2023-02-25 [facility] 1.2.840.114 [id number] Univers 14:30:00 15:16:11 Visit Bishnu ESQUEDA 350.1.13.10 i ty of [place] [phone] Oh dical NAL 098 Branch BUILDING 2023-02-25 2023-02-25 Orders Doctor PACO 1.2.840.114 [id number] Univers 00:00:00 00:00:00 Only UnassDANUTA garcia 350.1.13.10 ity of [place] [facility] 4.2.7.2.686 Daniel as [phone] [place] [address] Branch 2023-02-13 2023-02-13 Orders Doctor PACO 1.2.840.114 [id number] Univers 00:00:00 00:00:00 Only Unassigned, DANUTA 350.1.13.10 ity of [place] [facility] 4.2.7.2.686 Daniel as [phone] [facility] [address] 2023-02-12 2023-02-12 Telephone PACO Tapia 1.2.669.057 [id number] Univers 00:00:00 00:00:00 Spike DANUTA 350.1.13.10 it y of [facility] 4.2.7.2.686 Daniel as [phone] [facility] 009 Branch 2023-02-08 2023-02-08 Telephone ROXANE Tapia 1.2.840.114 [id number] Univers 00:00:00 00:00:00 Spike HEALTH 350.1.13.10 i ty [place] [id number] [facility] 089 Branch 2023-02-07 2023-02-07 Telephone PACO Tapia 1.2.569.054 [id number] Univers 00:00:00 00:00:00 Spike WORKMANY 350.1.13.10 it y of [facility] 4.2.7.2.686 Daniel as [phone] [facility] [address] 2023-02-06 2023-02-06 Heel Sander Rubber [facility] UNIVERSIT 1.2.840.114 [id number] Univers 11:30:00 11:45:00 Visit José Miguel Bang HEALTH 350.1.13.10 ity of [place] [id number] [facility] 316 Branch 2023-02-06 2023-02-06 Outpatient R BETI [facility] [id number] Univers 10:00:00 11:09:24 JOSÉ MIGUEL xiong [facility] 2023-02-06 2023-02-06 Office [facility]pike [facility] 1.2.840.114 [id number] Univers 10:00:00 11:09:24 Visit José Miguel Bang HEALTH 350.1.13.10 ity of [place] [id number] [facility] [address] 2023-01-11 2023-01-11 Telephone Pcp, [facility] 1.2.660.677 [id number] Univers 00:00:00 00:00:00 Patient HEALTH 350.1.13.10 it y of Does Not [place] ANDREA?BLEA [phone] [facility] [address] MEDICAL OFFICE [facility] 2023-01-10 2023-01-10 Hospital [facility] 1.2.840.114 [id number] Univers 18:26:44 23:59:00 Encounter Britt Wilder [facility] 350.1.13.10 ity of [place] 4.2.7.2.686 Daniel as ANDREA?BLEA [phone] [facility] 808 [facility] OFFICE [facility] 2023-01-10 2023-01-10 Outpatient R [facility] [id number] Univers 18:00:00 18:34:50 BRITT xiong [facility] 2023-01-10 2023-01-10 Urgent Britt Castro [facility] 1.2.840 .114 [id number] Univers 18:00:00 18:34:50 Care Unknown, Attending HEALTH 350.1.13.10 ity of [place] Davidconnie [place] 4.2.7.2.686 [place] ANDREA?BLEA [id number] [address] OFFICE [facility] 2022-12-26 2022-12-26 Rj Tapia UNIVERSIT 1.2.206.631 [id number] Univers 00:00:00 00:00:00 Spike Y HEALTH 350.1.13.10 i ty [place] [id number] [facility] [address] 2022-08-29 2022-08-29 Heel Sander Rubber [facility] UNIVERSIT 1.2.840.114 [id number] Univers 11:45:00 12:00:00 Visit Kishor Adams Y HEALTH 350.1.13.10 ity of [place] [phone] [facility] 316 [address] 2022-08-29 2022-08-29 Outpatient R ANCA [facility] [id number] Univers 10:00:00 11:04:18 KISHOR jefry [facility] 2022-08-29 2022-08-29 Office Spike Tapia 1.2.840.114 [id number] Univers 10:00:00 11:04:18 Visit Kishor Adams [facility] 350.1.13.10 ity of [place] [id number] [facility] [address] 2022-08-29 2022-08-29 Orders Doctor PACO 1.2.840.114 [id number] Univers 00:00:00 00:00:00 Only Unassigned, DANUTA 350.1.13.10 ity of [place] [facility] 4.2.7.2.686 Daniel as [id number] [facility] [address] 2022-07-26 2022-07-26 Emergency X [facility] ERT [id number] Univers 18:25:00 21:34:00 QUINTON [facility] 2022-07-26 2022-07-26 Emergency [facility] 1.2.016.551 [id number] Univers 18:25:00 21:34:00 Quinton Alexander YIN 350.1.13.10 i ty [place] [phone] [facility] [address] 2022-07-26 2022-07-26 Orders Doctor PACO 1.2.840.114 [id number] Univers 00:00:00 00:00:00 Only Unassigned, DANUTA 350.1.13.10 ity of [place] [facility] 4.2.7.2.686 Daniel as [id number] [facility] [address] 2022-06-28 2022-06-28 Telephone HANNAH Tapia 1.2.840.114 [id number] Univers 00:00:00 00:00:00 [facility] 350.1.13.10 i ty of [place] [id number] [facility] [address] [place] [address] 2022-06-27 2022-06-27 Heel Sander Rubber [facility] UNIVERSIT 1.2.840.114 [id number] Univers 11:15:00 11:30:00 Visit José Miguel Bang [facility] 350.1.13.10 ity of [place] [id number] [address] 2022-06-27 2022-06-27 Office [facility] 1.2.840.114 [id number] Univers 10:00:00 10:30:00 Visit Beti [facility] 350.1.13.10 ity of [place] [id number] [address] 2022-06-27 2022-06-27 Outpatient R BETI [facility] [id number] Univers 10:00:00 10:00:00 [facility] 2022-06-27 2022-06-27 Outpatient R BETI [facility] [id number] Univers 10:00:00 10:00:00 [facility] 2022-06-07 2022-06-09 Outside nullFlavo MNA [id number] Memoria 16:52:42 04:59:59 Medical r Neurology 01 l Records Clark Fergusonann 2022-06-07 2022-06-09 Outside nullFlavo MNA [id number] Memoria 16:52:42 04:59:59 Medical r Neurology 01 l Records Clark Fergusonann 2022-06-07 2022-06-08 Outpatient MHMISCHER MHMISCHER [id number] 11:52:42 23:59:59 2022-06-04 2022-06-04 Telephone Regina [facility] 1.2.840.114 [id number] Univers 00:00:00 00:00:00 [facility] 350.1.13.10 i ty of [place] [id number] [address] 2022-05-31 2022-05-31 Telephone [facility] 1.2.898.754 [id number] Univers 00:00:00 00:00:00 Juan F C MULTISPEC 350.1.13.10 ity of [place] 4.2.7.2.686 [facility] [id number] [facility] [place] [address] [facility] 2022-05-26 2022-05-26 Outpatient R RADU [facility] [id number] Univers 13:35:00 14:24:34 TING ity [facility] 2022-05-26 2022-05-26 [facility] 1.2.840.114 [id number] Univers 13:35:00 14:24:34 Care TingAgentPiggy 350.1.13.10 it y [facility] 4.2.7.2.686 Daniel as ANDREA?BLEA [id number] [facility] [address] MEDICAL OFFICE BUILDING 2022-04-11 2022-04-11 Transition KATHLEEN Jackson 1.2.840.114 [id number] Univers 00:00:00 00:00:00 of Care Sona AGUILARY 350.1.13.10 it y of [place] 4.2.7.2.686 [facility] [id number] [facility] [address] 2022-04-09 2022-04-10 Outpatient X JOSE CARLOS [facility] [id number] Univers 03:41:00 14:05:00 MICHAEL [facility] 2022-04-09 2022-04-10 Emergency Michael Potter [facility] 1.2.840 .114 [id number] Univers 03:41:00 14:05:00 Rashad Delgado 350.1.13.10 ity of [place] 4.2.7.2.686 [facility] [id number] [facility] [address] 2022-04-06 2022-04-08 Outside nullFlavo MNA [id number] Memoria 13:28:33 04:59:59 Medical r Neurology 00 l Records Clark Medina 2022-04-06 2022-04-08 Outside nullFlavo MNA [id number] Memoria 13:28:33 04:59:59 Medical r Neurology 00 l Records Clark Medina 2022-04-06 2022-04-07 Outpatient MHMISCHER MHMISCHER [id number] 08:28:33 23:59:59 00 2022-03-29 2022-03-29 Outpatient Ofelia YEPEZ [facility] [id number] Univers 18:40:00 19:04:43 [facility] [place] [facility] 2022-03-29 2022-03-29 Urgent Agusto Anna [facility] 1.2.840.114 [id number] Univers 18:40:00 19:04:43 Konstantin [facility] 350.1.13.10 [facility] 4.2.7.2.686 Daniel as ANDREA?BLEA [id number] [address] MEDICAL OFFICE BUILDING 2022-03-29 2022-03-29 Outpatient Ofelia YEPEZ [facility] [id number] [facility] 18:40:00 18:40:00 [facility] [place] [facility] 2022-03-27 2022-03-27 Ambulatory nullFlavo MNA [id number] Memoria 15:15:00 15:15:00 Pre-Reg r Neurology 06 l Clark Medina 2022-03-27 2022-03-27 Ambulatory nullFlavo MNA [id number] Memoria 15:15:00 15:15:00 Pre-Reg r Neurology 06 l Clark Medina 2022-03-27 2022-03-27 Outpatient MHIE MHIE [id number] Memoria 10:15:00 10:15:00 06 l Adam 2022-03-27 2022-03-27 Outpatient [facility]STIANE [id number] 10:15:00 10:15:00 Jorge Ivelisse Dodson 2022-02-13 2022-02-14 Outpatient nullFlavo MNA [id number] Memoria 16:30:00 04:59:59 r Neurology 05 l Clark Medina 2022-02-13 2022-02-14 Outpatient nullFlavo MNA [id number] Memoria 16:30:00 04:59:59 r Neurology 05 l Clark Medina 2022-02-13 2022-02-13 Outpatient CRISTIANE Ly KELLI [id number] 11:30:00 23:59:59 Jorge Kwasi Dodson 2022-02-13 2022-02-13 Outpatient MHIE MHIE [id number] Memoria 11:30:00 11:30:00 05 roberto Medina 2021-10-16 2021-10-17 Outpatient nullFlavo MNA [id number] Memoria 16:45:00 05:59:59 r Neurology 04 roberto Medina 2021-10-16 2021-10-17 Outpatient nullFlavo MNA [id number] Memoria 16:45:00 05:59:59 r Neurology 04 roberto Medina 2021-10-16 2021-10-16 Outpatient Aliyah [facility] [id number] 10:45:00 23:59:59 Jorge 04 [place] 2021-10-16 2021-10-16 Outpatient MHIE MHIE [id number] Memoria 10:45:00 10:45:00 04 roberto Medina 2021-09-18 2021-09-19 Outpatient nullFlavo MNA [id number] Memoria 21:00:00 05:59:59 r Neurology 03 roberto Medina 2021-09-18 2021-09-19 Outpatient nullFlavo MNA [id number] Memoria 21:00:00 05:59:59 r Neurology 03 roberto Medina 2021-09-18 2021-09-18 Outpatient Aliyah [facility] [id number] 15:00:00 23:59:59 Jorge 03 [place] 2021-09-18 2021-09-18 Outpatient MHIE MHIE [id number] Memoria 15:00:00 15:00:00 03 roberto Medina 2021-08-15 2021-08-16 Outpatient nullFlavo MNA [id number] Memoria 20:00:00 04:59:59 r Neurology 02 roberto Medina 2021-08-15 2021-08-16 Outpatient nullFlavo MNA [id number] Memoria 20:00:00 04:59:59 r Neurology 02 roberto Medina 2021-08-15 2021-08-15 Outpatient RENITA LyCASCHER MISCHER [id number] 15:00:00 23:59:59 Jorge 02 [place] 2021-08-15 2021-08-15 Outpatient MHIE MHIE [id number] Memoria 15:00:00 15:00:00 02 roberto Medina 2020-12-05 2020-12-05 Outpatient R ZULMA [facility] [id number] Univers 13:00:00 13:00:00 SENDIL ity [facility] 2020-08-04 2020-08-04 Outpatient R ZULMA [facility] [id number] Univers 13:00:00 13:00:00 SENDIL ity [facility] 2020-08-02 2020-08-02 Outpatient R [facility] [id number] Univers 10:00:00 10:00:00 ity [facility] 2020-05-12 2020-05-12 Outpatient R IRAM MANJARREZ [facility] [id number] Univers 11:40:00 11:40:00 IRAM MANJARREZ i ty of [facility] 2020-05-02 2020-05-02 Outpatient R [facility] [id number] Univers 10:00:00 10:00:00 ity [facility] 2020-03-29 2020-03-29 Outpatient R ZULMA [facility] [id number] Univers 11:00:00 11:00:00 SENDIL ity [facility] 2020-02-11 2020-02-11 Outpatient R ZULMA [facility] [id number] Univers 09:30:00 09:30:00 SENDIL ity [facility] 2020-02-05 2020-02-05 Outpatient R IRAM MANJARREZ [facility] [id number] Univers 11:40:00 11:40:00 IRAM MANJARREZ i ty of [facility] 2019-12-31 2019-12-31 Outpatient R ZULMA [facility] [id number] Univers 10:00:00 10:00:00 SENDIL ity [facility] 2018-01-06 2018-01-06 Outpatient MHIE MHIE [id number] Memoria 13:00:00 13:00:00 01 roberto Medina 2018-01-06 2018-01-06 Outpatient MHIE MHIE [id number] Memoria 13:00:00 13:00:00 01 roberto Medina 2018-01-03 2018-01-03 Outpatient MHIE MHIE [id number] Memoria 11:00:00 11:00:00 00 roberto Adam 2018-01-03 2018-01-03 Outpatient RENITA RENITA [id number] Memoria 11:00:00 11:00:00 00 roberto Medina 2013-07-21 2013-07-22 Inpatient nullFlavo [id number] Memoria 05:27:00 10:40:00 r [facility] roberto Medina 2013-07-21 2013-07-22 Inpatient nullFlavo [id number] Memoria 05:27:00 10:40:00 r [place] roberto Medina Results Test Description Test Time [...] = 0 ml. Results reported to provider. [facility] URINALYSIS W/O SPECIFIC [id number] 19:42:00 Test Item Value Reference Range Interpretation [...] = 0 ml. Results reported to provider. [facility] URINALYSIS W/O SPECIFIC [id number] 19:42:00 Test Item Value Reference Range Interpretation [...] = 0 ml. Results [id number] 01:14:20 Test Item Value Reference Range Interpretation Comments NT-proBNP (test code 37 pg/mL See_Comment [Autom ated = 3488364693) message] The system which generated this result transmitted reference range : <=450. The reference range was not used to interpret this result as normal/abnormal . ANNIKA (test code = ANNIKA) Biotin has been reported to cause a negative bias, interpret results relative to patient's use of biotin. Lab Interpretation Normal (test code = 54681-4) [facility] WITH [id number] 01:13:59 Test Item Value Reference Range Interpretation Comments WBC (test code = See_Comment [Automated 8791-2) message] The sy stem which generated this result transmitted reference range : 4.30 - 11.10 10*3/?L. The reference range was not used to interpret this result as normal/abnormal . RBC (test code = See_Comment [Automated 181-8) message] The sy stem which generated this [...] RDW-SD (test code = 44.3 fL 39-49.9 63417-6) RDW-CV (test code = 14.8 % 12-15.5 788-0) PLT (test code = See_Comment [Automated 777-3) message] The sy stem which generated this result transmitted reference range : 166 - 358 10*3/ ?L. The reference r clementina was not used to interpret this result as normal/abnormal . MPV (test code = 11.3 fL 9.5-12.9 07019-6) NRBC/100 WBC (test See_Comment [Automat ed code = 8315343483) message] The system which generated this result transmitted reference range : 0.0 - 10.0 /100 WBCs. The refer ence range was not u sed to interpret th is result as normal/abnormal . NRBC x10^3 (test code See_Comment [Auto mated = 7059408619) message] The s ystem which generated this result transmitted reference range : 10*3/?L. The reference range was not used to interpret this result as normal/abnormal . GRAN MAT (NEUT) % 68.2 % (test code = 770-8) IMM GRAN % (test code 1.30 % = 4425284922) LYMPH % (test code = 22.3 % 736-9) MONO % (test code = 6.1 % 5905-5) EOS % (test code = 1.4 % 713-8) BASO % (test code = 0.7 % 706-2) GRAN MAT x10^3(ANC) 5.79 10*3/uL 1.88-7.09 (test code = 2950091128) IMM GRAN x10^3 (test 0.11 10*3/uL 0-0.06 H code = 9299881850) LYMPH x10^3 (test code 1.89 10*3/uL 1.32-3.29 = 731-0) MONO x10^3 (test code 0.52 10*3/uL 0.33-0.92 = 742-7) EOS x10^3 (test code = 0.12 10*3/uL 0.03-0.39 711-2) BASO x10^3 (test code 0.06 10*3/uL 0.01-0.07 = 704-7) Lab Interpretation Abnormal (test code = 53026-0) [facility]. METABOLIC PANEL (65979)2022-07-27 01:05:18 Test Item Value Reference Range Interpretation Comments NA (test code = 139 mmol/L 135-145 2089389586) K (test code = 5.1 mmol/L 3.5-5 H 2657411708) CL (test code = 101 mmol/L 98-108 5631993225) CO2 TOTAL (test code = 28 mmol/L 23-31 1259606524) AGAP (test code = 2-16 3751481021) BUN (test code = 23 mg/dL 7-23 2814958973) GLUCOSE (test code = 136 mg/dL 70-110 H 7189569867) CREATININE (test code = 0.77 mg/dL 0.5-1.04 7103636141) TOTAL BILI (test code = 0.6 mg/dL 0.1-1.1 2516146160) CALCIUM (test code = 10.4 mg/dL 8.6-10.6 9892029482) T PROTEIN (test code = 7.3 g/dL 6.3-8.2 6343686097) ALBUMIN (test code = 4.5 g/dL 3.5-5 8554673944) ALK PHOS (test code = 60 U/L 34-122 5199935204) ALTv (test code = 19 U/L 5-35 1742-6) AST(SGOT) (test code = 26 U/L 13-40 6453954928) eGFR (test code = mL/min/1.73m2 3612536029) ANNIKA (test code = ANNIKA) Association of [...] tests). Lab Interpretation Abnormal (test code = 77227-5) [facility], WITH FLEX 2019-02-23 14:06:00Reason [...] L5, without segmental instability. Signed: Silverio Higgins [facility] Verified Date/Time: 02/23/2019 14:06:43 RAD, SPINE, CERVICAL, COMPLETE, WITH [id number] 16:26:00Reason for Exam:->cervical radiculopathy, acute history of [...] hardware loosening or failure. Signed: Silverio Higgins [facility] Verified Date/Time: 10/27/2018 16:26:17 POCT-GLUCOSE [id number] 09:24:00 Test Item Value Reference Range Interpretation Comments POC-GLUCOSE METER 160 mg/dL 70-110 H TESTED AT [facility] 6720 ([facility]) (test code = [facility] 1538) 38419 BUN AND [id number] 14:14:00 Test Item Value Reference Range Interpretation Comments BLOOD UREA NITROGEN 12 mg/dL 7-21 ([facility]) (test code = 354) CREATININE ([facility]) 0.74 mg/dL 0.57-1.25 (test code = 358) EGFR ([facility]) (test mL/min/1.73 INSUFFIC IENT CLINICAL code = 1092) sq m DATA TO CALCULA TE ESTIMATED GFR. [id number] 14:12:00 Test Item Value Reference Range Interpretation Comments SODIUM ([facility]) (test code = 381) 142 meq/L 136-145 POTASSIUM ([facility]) (test code = 4.8 meq/L 3.5-5.1 379) CHLORIDE (BEAKER) (test code = 382) 106 meq/L 98-107 CO2 (BEAKER) (test code = 355) 27 meq/L 22-29 [id number] 14:12:00 Test Item Value Reference Range Interpretation Comments GLUCOSE RANDOM (BEAKER) (test code 123 mg/dL 70-105 H = 652) [id number] 13:28:00 Test Item Value Reference Range Interpretation Comments HEMOGLOBIN (BEAKER) (test code = 10.9 GM/DL 11.2-15.7 L 410) AFB CULTURE + [id number] 19:42:00 Test Item Value Reference Range Interpretation Comments CULTURE (BEAKER) (test No acid-fast bacilli code = 1095) isolated in 42 days AFB SMEAR (BEAKER) No acid fast bacilli (test code = 994) seen AFB CULTURE + [id number] 19:42:00 Test Item Value Reference Range Interpretation Comments CULTURE (BEAKER) (test No acid-fast bacilli code = 1095) isolated in 42 days AFB SMEAR (BEAKER) No acid fast bacilli (test code = 994) seen AFB CULTURE + [id number] 19:42:00 Test Item Value Reference Range Interpretation Comments CULTURE (BEAKER) (test No acid-fast bacilli code = 1095) isolated in 42 days AFB SMEAR (BEAKER) No acid fast bacilli (test code = 994) seen FUNGUS CULTURE + [id number] 07:50:00 Test Item Value Reference Range Interpretation Comments CULTURE (BEAKER) (test No fungus isolated in code = 1095) 28 days FUNGUS SMEAR (BEAKER) No fungi seen (test code = 1406) FUNGUS CULTURE + [id number] 07:50:00 Test Item Value Reference Range Interpretation Comments CULTURE (BEAKER) (test No fungus isolated in code = 1095) 28 days FUNGUS SMEAR (BEAKER) No fungi seen (test code = 1406) FUNGUS CULTURE + [id number] 07:50:00 Test Item Value Reference Range Interpretation Comments CULTURE (BEAKER) (test No fungus isolated in code = 1095) 28 days FUNGUS SMEAR (BEAKER) No fungi seen (test code = 1406) ANAEROBIC [id number] 17:16:00 Test Item Value Reference Range Interpretation Comments CULTURE (BEAKER) (test No anaerobes isolated code = 1095) ANAEROBIC [id number] 15:25:00 Test Item Value Reference Range Interpretation Comments CULTURE (BEAKER) (test No anaerobes isolated code = 1095) ANAEROBIC [id number] 15:25:00 Test Item Value Reference Range Interpretation Comments CULTURE (BEAKER) (test No anaerobes isolated code = 1095) BODY FLUID CULTURE + GRAM [id number] 16:23:00 Test Item Value Reference Range Interpretation Comments CULTURE (BEAKER) (test code = 1095) No growth Received in Aerobic BTA bottle only.BLOOD [id number] 11:00:00 Test Item Value Reference Range Interpretation Comments CULTURE (BEAKER) (test No growth in 5 days code = 1095) BLOOD [id number] 11:00:00 Test Item Value Reference Range Interpretation Comments CULTURE (BEAKER) (test No growth in 5 days code = 1095) ANAEROBIC [id number] 09:35:00 Test Item Value Reference Range Interpretation [...] (BEAKER) No organisms seen (test code = 46001) SURGICALLY OBTAINED CULTURE + GRAM [id number] 08:52:00 Test Item Value Reference Range Interpretation Comments CULTURE (BEAKER) (test code No growth = 1095) GRAM STAIN RESULT (BEAKER) 1+ WBCs (test code = 1123) GRAM STAIN RESULT (BEAKER) No organisms seen (test code = 12414) SURGICALLY OBTAINED CULTURE + GRAM [id number] 08:46:00 Test Item Value Reference Range Interpretation Comments CULTURE (BEAKER) (test code No growth = 1095) GRAM STAIN RESULT (BEAKER) 1+ WBCs (test code = 1123) GRAM STAIN RESULT (BEAKER) No organisms seen (test code = 35804) PERIPHERAL BLOOD SMEAR - PATHOLOGIST [id number] 12:29:00 Test Item Value Reference Range Interpretation Comments RBC MORPHOLOGY Hypochromasia (BEAKER) (test code = 2846) RBC MORPHOLOGY Anisocytosis (BEAKER) (test code = 67909) RBC MORPHOLOGY Poikilocytosis (BEAKER) (test code = 70297) RBC MORPHOLOGY Polychromasia (BEAKER) (test code = 31963) WBC MORPHOLOGY See comment (BEAKER) (test code = 2847) PLT MORPHOLOGY Unremarkable (BEAKER) (test code = 2848) PERIPHERAL SMR Hypochromic, normocytic REVIEW (BEAKER) anemia with mild (test code = 2640) anisopoikilocytosis with elliptocytes and spherocytes. Mild polychromasia. WBCs demonstrate rare myeloid precursors and lymphocytes with reactive/atypical forms. No blasts are identified. [id number] Luis Jalloh MD (electronic 112 (BEAKER) (test signature) code = 2849) POCT-GLUCOSE [id number] 12:06:00 Test Item Value Reference Range Interpretation Comments POC-GLUCOSE METER 95 mg/dL 70-110 TESTED AT [place] [address] (BEAKER) (test code = [facility] [address] 1538) POCT-GLUCOSE [id number] 08:47:00 Test Item Value Reference Range Interpretation Comments POC-GLUCOSE METER 196 mg/dL 70-110 H [facility] [place] [address] [facility] (test code = [facility] 1538) [address] BASIC METABOLIC [id number] 05:15:00 Test Item Value Reference Range Interpretation [...] ESTIMATED GFR. CBC W/PLT COUNT & AUTO [id number] 04:48:00 Test Item Value Reference Range Interpretation [...] L 0.00-0.20 (test code = 417) 0.00POCT-GLUCOSE [id number] 20:56:00 Test Item Value Reference Range Interpretation Comments POC-GLUCOSE METER 177 mg/dL 70-110 H TESTED AT [place] [address] ([facility]) (test code = LEIDA [place] 1538) [address] POCT-GLUCOSE [id number] 16:56:00 Test Item Value Reference Range Interpretation Comments POC-GLUCOSE METER 215 mg/dL 70-110 H TESTED AT [place] [address] ([facility]) (test code = LEIDA [place] 1538) [address] POCT-GLUCOSE [id number] 12:12:00 Test Item Value Reference Range Interpretation Comments POC-GLUCOSE METER 161 mg/dL 70-110 H TESTED AT [place] [address] ([facility]) (test code = [facility] [place] 1538) [address] POCT-GLUCOSE [id number] 08:06:00 Test Item Value Reference Range Interpretation Comments POC-GLUCOSE METER 139 mg/dL 70-110 H TESTED AT [place] [address] ([facility]) (test code = [facility] [place] 1538) [address] CBC W/PLT COUNT & AUTO [id number] 05:38:00 Test Item Value Reference Range Interpretation Comments WHITE BLOOD CELL COUNT (BEAKER) 5.6 K/ L 4.0-10.0 (test code = 775) RED BLOOD CELL COUNT (BEAKER) 3.43 M/ L 4.00-5.00 L (test code [...] K/ L 0.00-0.20 (test code = 417) 0.00[facility] METABOLIC [id number] 05:28:00 Test Item Value Reference Range Interpretation [...] DATA TO CALCULA TE ESTIMATED GFR. POCT-GLUCOSE [id number] 21:25:00 Test Item Value Reference Range Interpretation Comments POC-GLUCOSE METER 214 mg/dL 70-110 H TESTED AT [facility] 6720 (BEAKER) (test code = [place] 1538) [address] (MANUAL DIFFERENTIAL)2017-04-13 18:07:00 Test Item Value Reference [...] MORPHOLOGY (BEAKER) (test code Normal = 762) [id number] 17:42:00 Test Item Value Reference Range Interpretation Comments FERRITIN (BEAKER) (test code = 361) 269 ng/mL 5-275 Effective 09/14/2014: Reference Range ChangeNew: Male 5-275 Previous: Male 22- 322 Female 5-275 Female 10-291HEPATITIS C [id number] 17:39:00 Test Item Value Reference Range Interpretation Comments HEPATITIS C ANTIBODY (BEAKER) Nonreactive Nonreactive (test code = 367) HIV-1 ANTIGEN WITH HIV-1/2 [id number] 17:39:00 Test Item Value Reference Range Interpretation Comments HIV-1 ANTIGEN WITH HIV 1\\T\\2 Nonreactive Nonreactive ANTIBODY (2) (BEAKER) (test code = 2586) CBC W/PLT COUNT & AUTO [id number] 17:19:00 Test Item Value Reference Range Interpretation [...] code = 769) IRON % SATURATION (2) (AKER) 5 % 20-55 L (test code = 2590) POCT-GLUCOSE [id number] 17:09:00 Test Item Value Reference Range Interpretation Comments POC-GLUCOSE METER 138 mg/dL 70-110 H TESTED AT [place] [address] ([facility]) (test code = [facility] 1538) [address] RETICULOCYTE [id number] 17:03:00 Test Item Value Reference Range Interpretation Comments RETICULOCYTE COUNT PCT ([facility]) (test 1.3 % 0.4-2.9 code = 575) POCT-GLUCOSE [id number] 12:10:00 Test Item Value Reference Range Interpretation Comments POC-GLUCOSE METER 203 mg/dL 70-110 H TESTED AT [place] [address] ([facility]) (test code = [facility] 1538) [address] HEMOGLOBIN [id number] 11:08:00 Test Item Value Reference Range Interpretation Comments HEMOGLOBIN A1C ([facility]) (test code = 6.1 % 4.3-6.1 368) URINE [id number] 10:17:00 Test Item Value Reference Range Interpretation Comments CULTURE ([facility]) (test code No growth = 1095) GRAM STAIN RESULT ([facility]) <1+ WBCs (test code = 1123) GRAM STAIN RESULT ([facility]) No organisms seen (test code = 60533) VANCOMYCIN LEVEL, [id number] 09:45:00 Test Item Value Reference Range Interpretation Comments VANCOMYCIN TROUGH ([facility]) (test 15.6 ug/mL 10.0-20.0 code = 522) CBC W/PLT COUNT & AUTO [id number] 09:00:00 Test Item Value Reference Range Interpretation [...] L 0.00-0.20 (test code = 417) 0.00POCT-GLUCOSE [id number] 08:21:00 Test Item Value Reference Range Interpretation Comments POC-GLUCOSE METER 144 mg/dL 70-110 H TESTED AT [place] [address] ([facility]) (test code = LEIDA Gilbert [facility] 1538) [address] BASIC METABOLIC [id number] 06:36:00 Test Item Value Reference Range Interpretation Comments SODIUM (BEAKER) 139 meq/L 136-145 (test code = 381) POTASSIUM (BEAKER) 3.7 meq/L 3.5-5.1 (test code = 379) CHLORIDE (BEAKER) 108 meq/L 98-107 H (test code = 382) CO2 (BEAKER) (test 26 meq/L 22-29 code = 355) BLOOD UREA NITROGEN 10 mg/dL 7-21 ([facility]) (test code = 354) CREATININE (AKER) 0.68 mg/dL 0.57-1.25 (test code = 358) GLUCOSE RANDOM 135 mg/dL 70-105 H ([facility]) (test code = 652) CALCIUM (BEAKER) 8.4 mg/dL 8.4-10.2 (test code = 697) EGFR ([facility]) (test mL/min/1.73 INSUFFIC IENT CLINICAL code = 1092) sq m DATA TO CALCULA TE ESTIMATED GFR. POCT-GLUCOSE [id number] 21:03:00 Test Item Value Reference Range Interpretation Comments POC-GLUCOSE METER 163 mg/dL 70-110 H TESTED AT [place] [address] ([facility]) (test code = LEIDA Gilbert [facility] 1538) [address] POCT-GLUCOSE [id number] 18:23:00 Test Item Value Reference Range Interpretation Comments POC-GLUCOSE METER 166 mg/dL 70-110 H TESTED AT [place] [address] ([facility]) (test code = [facility] Ofelia [facility] 1538) [address] TSH/FREE T4 IF [id number] 16:47:00 Test Item Value Reference Range Interpretation Comments THYROID STIMULATING HORMONE 1.79 uIU/mL 0.35-4.94 ([facility]) (test code = 772) TISSUE [id number] 15:11:00Surgical Pathology Report Case: [id number] Authorizing Provider: Radha Gallo Collected: 04/11/2017 1415 Ordering Location: [facility] PERI[facility] Received: 04/12/2017 0820 SERVICES Pathologist: Mague Geiger MD Specimen: Explant RIGHT KNEE, REMOVAL OF ORTHOPEDIC HARDWARE: - ORTHOPEDIC HARDWARE, (GROSS DIAGNOSIS ONLY) at3:11 PMInfected right knee Hardware The specimen is received in a fluidless container labeled with the patient's information and labeled "hardware" and consists of an orthopedic hardware spacer measuring 6.1 x 3.6 x 0.8 cm. The serial number is "[id number]". There is also metal hardware measuring 5 x 0.6x 0.2 cm. The specimen is submitted for gross identification. CG/ewPOCT-GLUCOSE [id number] 12:42:00 Test Item Value Reference Range Interpretation Comments POC-GLUCOSE METER 145 mg/dL 70-110 H TESTED AT [place] [address] ([facility]) (test code = [facility] 1538) [address] POCT-GLUCOSE [id number] 08:05:00 Test Item Value Reference Range Interpretation Comments POC-GLUCOSE METER 125 mg/dL 70-110 H TESTED AT [place] [address] ([facility]) (test code = [facility] 1538) [address] BASIC METABOLIC [id number] 04:45:00 Test Item Value Reference Range Interpretation [...] ESTIMATED GFR. CBC W/PLT COUNT & AUTO [id number] 04:29:00 Test Item Value Reference Range Interpretation [...] L 0.00-0.20 (test code = 417) 0.00POCT-GLUCOSE [id number] 21:07:00 Test Item Value Reference Range Interpretation Comments POC-GLUCOSE METER 212 mg/dL 70-110 H TESTED AT [facility] 6720 (BEAKER) (test code = LEIDA Gilbert [place] 1538) [address] POCT-GLUCOSE [id number] 16:46:00 Test Item Value Reference Range Interpretation Comments POC-GLUCOSE METER 127 mg/dL 70-110 H TESTED AT [facility] 6720 (BEAKER) (test code = [place] [place] 1538) [address] URINALYSIS W/ [id number] 12:56:00 Test Item Value Reference Range Interpretation [...] SOURCE(BEAKER) (test code = 2795) BODY FLUID [id number] 12:35:00 Test Item Value Reference Range Interpretation Comments CRYSTALS, BODY FLUID No crystals seen. (BEAKER) (test code = 2164) [id number] Luis Jalloh MD (BEAKER) (test code = (electronic signature) 2684) POCT-GLUCOSE [id number] 12:34:00 Test Item Value Reference Range Interpretation Comments POC-GLUCOSE METER 122 mg/dL 70-110 H TESTED AT [facility] 6720 (BEAKER) (test code = LEIDA [place] 1538) [address] POCT-GLUCOSE [id number] 08:29:00 Test Item Value Reference Range Interpretation Comments POC-GLUCOSE METER 158 mg/dL 70-110 H TESTED AT [facility] 6720 (BEAKER) (test code = LEIDA Gilbert [place] 1538) [address] BODY FLUID CELL COUNT WITH [id number] 07:59:00 Test Item Value Reference Range Interpretation Comments APPEARANCE FLUID (BEAKER) (test Cloudy Clear A code = 510) COLOR FLUID (BEAKER) (test code Yellow Colorless, Straw A = 511) RBC FLUID (BEAKER) (test code = 3223 /cu mm <=1 H 513) ADJUSTED WBC FLUID (BEAKER) 16093 /cu mm <=5 H (test code = [...] Tube (test code = 2873) BASIC METABOLIC [id number] 05:09:00 Test Item Value Reference Range Interpretation [...] ESTIMATED GFR. CBC W/PLT COUNT & AUTO [id number] 05:06:00 Test Item Value Reference Range Interpretation [...] K/ L 0.00-0.20 (test code = 417) 0[facility]00[facility] GL[facility] [id number] 11:25:00 Test Item Value Reference Range Interpretation Comments Gluc POC Comment 1 (test code = Sliding Scale Gluc POC Comment 1) [facility] GLUCOSE [id number] 11:25:00 Test Item Value Reference Range Interpretation Comments Gluc POC Comment 2 (test code = Notify RN/MD Gluc POC Comment 2) [facility] GLUCOSE [id number] 11:25:00 Test Item Value Reference Range Interpretation Comments Gluc POC (test code = Gluc POC) 167 70-[address] [facility] GLUCOSE [id number] 11:25:00 Test Item Value Reference Range Interpretation Comments Gluc POC Comment 1 (test code = Sliding Scale Gluc POC Comment 1) [facility] GLUCOSE [id number] 11:25:00 Test Item Value Reference Range Interpretation Comments Gluc POC Comment 2 (test code = Notify RN/MD Gluc POC Comment 2) [facility] GLUCOSE [id number] 11:25:00 Test Item Value Reference Range Interpretation Comments Gluc POC (test code = Gluc POC) 167 70-[address] [facility] GLUCOSE [id number] 11:25:00 Test Item Value Reference Range Interpretation Comments Gluc POC Comment 1 (test code = Sliding Scale Gluc POC Comment 1) [facility] GLUCOSE [id number] 11:25:00 Test Item Value Reference Range Interpretation Comments Gluc POC Comment 2 (test code = Notify RN/MD Gluc POC Comment 2) [facility] GLUCOSE [id number] 11:25:00 Test Item Value Reference Range Interpretation Comments Gluc POC (test code = Gluc POC) 167 70-[address] [facility] GLUCOSE [id number] 11:25:00 Test Item Value Reference Range Interpretation Comments Gluc POC Comment 1 (test code = Sliding Scale Gluc POC Comment 1) [facility] GLUCOSE [id number] 11:25:00 Test Item Value Reference Range Interpretation Comments Gluc POC Comment 2 (test code = Notify RN/MD Gluc POC Comment 2) [facility] GLUCOSE [id number] 11:25:00 Test Item Value Reference Range Interpretation Comments Gluc POC (test code = Gluc POC) 167 70-[address] [facility] GLUCOSE [id number] 11:25:00 Test Item Value Reference Range Interpretation Comments Gluc POC Comment 1 (test code = Sliding Scale Gluc POC Comment 1) [facility] GLUCOSE [id number] 11:25:00 Test Item Value Reference Range Interpretation Comments Gluc POC Comment 2 (test code = Notify RN/MD Gluc POC Comment 2) [facility] GLUCOSE [id number] 11:25:00 Test Item Value Reference Range Interpretation Comments Gluc POC (test code = Gluc POC) 167 70-[address] [facility] GLUCOSE [id number] 11:25:00 Test Item Value Reference Range Interpretation Comments Gluc POC Comment 1 (test code = Sliding Scale Gluc POC Comment 1) [facility] GLUCOSE [id number] 11:25:00 Test Item Value Reference Range Interpretation Comments Gluc POC Comment 2 (test code = Notify RN/MD Gluc POC Comment 2) [facility] GLUCOSE [id number] 11:25:00 Test Item Value Reference Range Interpretation Comments Gluc POC (test code = Gluc POC) 167 70-[address] [facility] GLUCOSE [id number] 11:25:00 Test Item Value Reference Range Interpretation Comments Gluc POC Comment 1 (test code = Sliding Scale Gluc POC Comment 1) [facility] GLUCOSE [id number] 11:25:00 Test Item Value Reference Range Interpretation Comments Gluc POC Comment 2 (test code = Notify RN/MD Gluc POC Comment 2) [facility] GLUCOSE [id number] 11:25:00 Test Item Value Reference Range Interpretation Comments Gluc POC (test code = Gluc POC) 167 70-[address] [facility] GLUCOSE [id number] 11:25:00 Test Item Value Reference Range Interpretation Comments Gluc POC Comment 1 (test code = Sliding Scale Gluc POC Comment 1) [facility] GLUCOSE [id number] 11:25:00 Test Item Value Reference Range Interpretation Comments Gluc POC Comment 2 (test code = Notify RN/MD Gluc POC Comment 2) [facility] GLUCOSE [id number] 11:25:00 Test Item Value Reference Range Interpretation Comments Gluc POC (test code = Gluc POC) 167 70-99 H [facility]IyrvpojSPTCDTXAY5212-58-20 09:40:00 Test Item Value Reference Range Interpretation Comments Creatinine Lvl (test code = Creatinine 0.8 0.5-1.4 N Lvl) [id number] 09:40:00 Test Item Value Reference Range Interpretation Comments Sodium Lvl (test code = Sodium Lvl) 143 135-145 N [facility] HospitalWuzuxelDNFKEIWPJ1516-12-07 09:40:00 Test Item Value Reference Range Interpretation Comments BUN (test code = BUN) 21 7-22 N [facility] Hospi[id number] 09:40:00 Test Item Value Reference Range Interpretation Comments AGAP (test code = AGAP) 17.1 10.0-20.0 N [facility] H[id number] 09:40:00 Test Item Value Reference Range Interpretation Comments Calcium Lvl (test code = Calcium Lvl) 8.8 8.5-10.5 N [facility] [id number] 09:40:00 Test Item Value Reference Range Interpretation Comments CO2 (test code = CO2) 25 24-32 N [facility] HospitalSjqfrwjZHPUZDEOO7951 09:40:00 Test Item Value Reference Range Interpretation Comments Chloride Lvl (test code = Chloride Lvl) 105 95-109 N [facility] HospitalJbcpyjwWPNGALQTQ6505-57-93 09:40:00 Test Item Value Reference Range Interpretation Comments Potassium Lvl (test code = Potassium 4.1 3.5-5.1 N Lvl) [facility] Hos[id number] 09:40:00 Test Item Value Reference Range Interpretation Comments Glucose Lvl (test code = Glucose Lvl) 126 70-99 H [facility] HospitalLozwkhqDOZHOPXOF1914-22-80 09:40:00 Test Item Value Reference Range Interpretation Comments eGFR (test code = eGFR) 75 [facility] HospitalHbbntbzDNJRPKCBV0929-43-38 09:40:00 Test Item Value Reference Range Interpretation Comments Creatinine Lvl (test code = Creatinine 0.8 0.5-1.4 N Lvl) [facility] HospitalXidcgbmJZDBMZNWI3793-64-93 09:40:00 Test Item Value Reference Range Interpretation Comments Sodium Lvl (test code = Sodium Lvl) 143 135-145 N [facility] HospitalExelrmxUGCESYMOE5487-46-55 09:40:00 Test Item Value Reference Range Interpretation Comments BUN (test code = BUN) 21 7-22 N [facility] HospitalXhrvehpMIXBCWFSB1529-35-38 09:40:00 Test Item Value Reference Range Interpretation Comments AGAP (test code = AGAP) 17.1 10.0-20.0 N [facility] HospitalHxlxupkXHOMOOINP7579-07-97 09:40:00 Test Item Value Reference Range Interpretation Comments Calcium Lvl (test code = Calcium Lvl) 8.8 8.5-10.5 N [facility] HospitalZdbfmktBXURNQDJV2607-74-02 09:40:00 Test Item Value Reference Range Interpretation Comments CO2 (test code = CO2) 25 24-32 N [facility] HospitalGideowaKJPMAUSRU0912-27-63 09:40:00 Test Item Value Reference Range Interpretation Comments Chloride Lvl (test code = Chloride Lvl) 105 95-109 N [facility] HospitalMvilshzIIQSKCUFZ6506-97-37 09:40:00 Test Item Value Reference Range Interpretation Comments Potassium Lvl (test code = Potassium 4.1 3.5-5.1 N Lvl) [facility] HospitalJnxsabqTPVFHBEPT4487-18-18 09:40:00 Test Item Value Reference Range Interpretation Comments Glucose Lvl (test code = Glucose Lvl) 126 70-99 H [facility] Hospi[id number] 09:40:00 Test Item Value Reference Range Interpretation Comments eGFR (test code = eGFR) 75 [facility] HospitalBtkvzamXKXBPKZUE8998-97-94 09:40:00 Test Item Value Reference Range Interpretation Comments Creatinine Lvl (test code = Creatinine 0.8 0.5-1.4 N Lvl) [facility] HospitalZwiqsslMHHSNRUIF2779-91-72 09:40:00 Test Item Value Reference Range Interpretation Comments Sodium Lvl (test code = Sodium Lvl) 143 135-145 N [facility] HospitalNtgaaozQIJUSXOUY8327-84-36 09:40:00 Test Item Value Reference Range Interpretation Comments BUN (test code = BUN) 21 7-22 N [facility] HospitalQvqzqhiNWGILJIPS9265-07-31 09:40:00 Test Item Value Reference Range Interpretation Comments AGAP (test code = AGAP) 17.1 10.0-20.0 N [facility] HospitalYnzsmauMQUWXWXMZ1200-69-65 09:40:00 Test Item Value Reference Range Interpretation Comments Calcium Lvl (test code = Calcium Lvl) 8.8 8.5-10.5 N [facility] HospitalYrjpjurXPGQAYTWT1676-37-02 09:40:00 Test Item Value Reference Range Interpretation Comments CO2 (test code = CO2) 25 24-32 N [facility] HospitalNmdooduMZIUXCVMG5800-38-59 09:40:00 Test Item Value Reference Range Interpretation Comments Chloride Lvl (test code = Chloride Lvl) 105 95-109 N [facility] HospitalEozpgrkLFTFVTTAD5496-04-47 09:40:00 Test Item Value Reference Range Interpretation Comments Potassium Lvl (test code = Potassium 4.1 3.5-5.1 N Lvl) [facility] HospitalUsdeyudNVSIJIYXX5070-58-17 09:40:00 Test Item Value Reference Range Interpretation Comments Glucose Lvl (test code = Glucose Lvl) 126 70-99 H [facility] Ho[id number] 09:40:00 Test Item Value Reference Range Interpretation Comments eGFR (test code = eGFR) 75 [facility] HospitalPexgjvfZTDDHDGEH4935-34-22 09:40:00 Test Item Value Reference Range Interpretation Comments eGFR (test code = eGFR) 75 [facility] HospitalWqkvexcCAACEQAZK5020-14-79 09:40:00 Test Item Value Reference Range Interpretation Comments Creatinine Lvl (test code = Creatinine 0.8 0.5-1.4 N Lvl) [facility] HospitalRupscruAVSIJPSHM3356-60-76 09:40:00 Test Item Value Reference Range Interpretation Comments Sodium Lvl (test code = Sodium Lvl) 143 135-145 N [facility] HospitalWnrfynsPJMAYEFAX8184-16-68 09:40:00 Test Item Value Reference Range Interpretation Comments BUN (test code = BUN) 21 7-22 N [facility] HospitalNugcdqcRJFDVMQPI4177-73-08 09:40:00 Test Item Value Reference Range Interpretation Comments AGAP (test code = AGAP) 17.1 10.0-20.0 N [facility] HospitalJbphdhvQQSXNRAAM8832-17-76 09:40:00 Test Item Value Reference Range Interpretation Comments Calcium Lvl (test code = Calcium Lvl) 8.8 8.5-10.5 N [facility] HospitalBsbkyruFEHWKPVUK9817-50-41 09:40:00 Test Item Value Reference Range Interpretation Comments CO2 (test code = CO2) 25 24-32 N [facility] HospitalRfgwicaZRPJZGHHZ6722-13-64 09:40:00 Test Item Value Reference Range Interpretation Comments Chloride Lvl (test code = Chloride Lvl) 105 95-109 N [facility] HospitalBxtmzlpFNVFBYHMN5363-18-43 09:40:00 Test Item Value Reference Range Interpretation Comments Potassium Lvl (test code = Potassium 4.1 3.5-5.1 N Lvl) [facility] HospitalNnewnlwZEKDFPSGV7455-50-45 09:40:00 Test Item Value Reference Range Interpretation Comments Glucose Lvl (test code = Glucose Lvl) 126 70-99 H [facility] HospitalWoyxcacQNGHNDFPN7290-22-84 09:40:00 Test Item Value Reference Range Interpretation Comments Creatinine Lvl (test code = Creatinine 0.8 0.5-1.4 N Lvl) [facility] HospitalPplrxbeJULKDOCKR3714-16-06 09:40:00 Test Item Value Reference Range Interpretation Comments Sodium Lvl (test code = Sodium Lvl) 143 135-145 N [facility] HospitalFyqwhpeTDKDHSFUP5931-49-93 09:40:00 Test Item Value Reference Range Interpretation Comments BUN (test code = BUN) 21 7-22 N [facility] HospitalUrdhxshHIAZNLOCW8825-61-77 09:40:00 Test Item Value Reference Range Interpretation Comments AGAP (test code = AGAP) 17.1 10.0-20.0 N [facility] HospitalXtpwziaBOTKRLYDU1791-71-95 09:40:00 Test Item Value Reference Range Interpretation Comments Calcium Lvl (test code = Calcium Lvl) 8.8 8.5-10.5 N [facility] HospitalGrxxgbjUKOFHGXZI8703-27-69 09:40:00 Test Item Value Reference Range Interpretation Comments CO2 (test code = CO2) 24-32 N [facility] HospitalFkwbjqeOFECFGMGS0748-03-18 09:40:00 Test Item Value Reference Range Interpretation Comments Chloride Lvl (test code = Chloride Lvl) 105 95-109 N [facility] HospitalZkyyfwmNLRRAPBFA6488-53-35 09:40:00 Test Item Value Reference Range Interpretation Comments Potassium Lvl (test code = Potassium 4.1 3.5-5.1 N Lvl) [facility] HospitalXuqqyehEQRPSCPNG4877-54-25 09:40:00 Test Item Value Reference Range Interpretation Comments Glucose Lvl (test code = Glucose Lvl) 126 70-99 H [facility] HospitalDhfgvblXNLSGCQSD1239-71-09 09:40:00 Test Item Value Reference Range Interpretation Comments eGFR (test code = eGFR) 75 [facility] HospitalJvzkevqFSLZQANFZ1555-36-58 09:40:00 Test Item Value Reference Range Interpretation Comments Creatinine Lvl (test code = Creatinine 0.8 0.5-1.4 N Lvl) [facility] HospitalVzzenhdLCFGGOVCN6629-07-54 09:40:00 Test Item Value Reference Range Interpretation Comments Sodium Lvl (test code = Sodium Lvl) 143 135-145 N [facility] HospitalEplajfqCWAQVUUZQ0752-54-25 09:40:00 Test Item Value Reference Range Interpretation Comments BUN (test code = BUN) 21 7-22 N [facility] HospitalVtufwysSWAJBBXBW8757-17-55 09:40:00 Test Item Value Reference Range Interpretation Comments AGAP (test code = AGAP) 17.1 10.0-20.0 N [facility] HospitalMvyfjztHPJAQTQXS3543-03-44 09:40:00 Test Item Value Reference Range Interpretation Comments Calcium Lvl (test code = Calcium Lvl) 8.8 8.5-10.5 N [facility] HospitalQqqngjpBCIEILKTQ8453-45-17 09:40:00 Test Item Value Reference Range Interpretation Comments CO2 (test code = CO2) 25 24-32 N [facility]ZeyvfvmTRRWQEPGT1457-10-52 09:40:00 Test Item Value Reference Range Interpretation Comments Chloride Lvl (test code = Chloride Lvl) 105 95-109 N [facility] HospitalFwoflwtYRXNHRMUW1340-70-09 09:40:00 Test Item Value Reference Range Interpretation Comments Potassium Lvl (test code = Potassium 4.1 3.5-5.1 N Lvl) [facility]HivmxmaVJVCYZMRA2296-09-49 09:40:00 Test Item Value Reference Range Interpretation Comments Glucose Lvl (test code = Glucose Lvl) 126 70-99 H [facility] HospitalLgxlowiLDYMQFUQM2773-04-14 09:40:00 Test Item Value Reference Range Interpretation Comments eGFR (test code = eGFR) 75 [facility] HospitalOkztffkFUJHUFPKB6939-77-62 09:40:00 Test Item Value Reference Range Interpretation Comments Creatinine Lvl (test code = Creatinine 0.8 0.5-1.4 N Lvl) [facility] HospitalVwbhaheQJNIQNWDF5727-93-38 09:40:00 Test Item Value Reference Range Interpretation Comments Sodium Lvl (test code = Sodium Lvl) 143 135-145 N [facility] HospitalJfxackaJPESIOOCU4036-82-45 09:40:00 Test Item Value Reference Range Interpretation Comments BUN (test code = BUN) 21 7-22 N [facility] HospitalNarplpeRASPEIBMR1951-30-92 09:40:00 Test Item Value Reference Range Interpretation Comments AGAP (test code = AGAP) 17.1 10.0-20.0 N [facility] HospitalNgasvtyNIEZMWNOC2354-93-54 09:40:00 Test Item Value Reference Range Interpretation Comments Calcium Lvl (test code = Calcium Lvl) 8.8 8.5-10.5 N [facility] HospitalTkwgpjuKYWRNPAPC2190-53-25 09:40:00 Test Item Value Reference Range Interpretation Comments CO2 (test code = CO2) 25 24-32 N [facility] HospitalHdcujazTWNHQFYQM3913-53-10 09:40:00 Test Item Value Reference Range Interpretation Comments Chloride Lvl (test code = Chloride Lvl) 105 95-109 N [facility] HospitalJjxrjqaBDHNFPMVV5871-60-93 09:40:00 Test Item Value Reference Range Interpretation Comments Potassium Lvl (test code = Potassium 4.1 3.5-5.1 N Lvl) [facility] HospitalPtbwptmHCQSOPDLJ5050-54-93 09:40:00 Test Item Value Reference Range Interpretation Comments Glucose Lvl (test code = Glucose Lvl) 126 70-99 H [facility] HospitalGqozbhlQXTGMHOSR8346-60-26 09:40:00 Test Item Value Reference Range Interpretation Comments eGFR (test code = eGFR) 75 [facility] HospitalTcrzrbaUZEIIRZYR0645-33-66 09:40:00 Test Item Value Reference Range Interpretation Comments Creatinine Lvl (test code = Creatinine 0.8 0.5-1.4 N Lvl) [facility] HospitalUdcbkkaAJRSVCSXK3591-91-22 09:40:00 Test Item Value Reference Range Interpretation Comments Sodium Lvl (test code = Sodium Lvl) 143 135-145 N [facility] HospitalDjuzvnzCWDUIKOUI1725-74-37 09:40:00 Test Item Value Reference Range Interpretation Comments BUN (test code = BUN) 21 7-22 N [facility] HospitalVfgaqvaVGDNNEUGF2267-21-94 09:40:00 Test Item Value Reference Range Interpretation Comments AGAP (test code = AGAP) 17.1 10.0-20.0 N [facility] HospitalSzsjlcrPQMVKQOPM6536-54-57 09:40:00 Test Item Value Reference Range Interpretation Comments Calcium Lvl (test code = Calcium Lvl) 8.8 8.5-10.5 N [facility] HospitalRxhrpduQAUVABWGD4954-54-70 09:40:00 Test Item Value Reference Range Interpretation Comments CO2 (test code = CO2) 25 24-32 N [facility] HospitalZzdgpwnNYILAWNSV6657-12-05 09:40:00 Test Item Value Reference Range Interpretation Comments Chloride Lvl (test code = Chloride Lvl) 105 95-109 N [facility] HospitalCjtqyfgHWVJMOJFM2953-13-63 09:40:00 Test Item Value Reference Range Interpretation Comments Potassium Lvl (test code = Potassium 4.1 3.5-5.1 N Lvl) [facility] HospitalGdfcelwCXXZPFNPZ0726-94-60 09:40:00 Test Item Value Reference Range Interpretation Comments Glucose Lvl (test code = Glucose Lvl) 126 70-99 H [facility] HospitalSrqkxxxXBUTVIRQW3541-53-05 09:40:00 Test Item Value Reference Range Interpretation Comments eGFR (test code = eGFR) 75 [facility] GLUCOSE FYVJPTZ0821-07-54 02:50:00 Test Item Value Reference Range Interpretation Comments Gluc POC (test code = Gluc POC) 221 70-[address] [facility] GLUCOSE [id number] 02:50:00 Test Item Value Reference Range Interpretation Comments Gluc POC Comment 1 (test code Assess Patient = Gluc POC Comment 1) [facility] GLUCOSE [id number] 02:50:00 Test Item Value Reference Range Interpretation Comments Gluc POC (test code = Gluc POC) 221 70-[address] [facility] GLUCOSE [id number] 02:50:00 Test Item Value Reference Range Interpretation Comments Gluc POC Comment 1 (test code Assess Patient = Gluc POC Comment 1) [facility] GLUCOSE [id number] 02:50:00 Test Item Value Reference Range Interpretation Comments Gluc POC (test code = Gluc POC) 221 70-[address] [facility] GLUCOSE [id number] 02:50:00 Test Item Value Reference Range Interpretation Comments Gluc POC Comment 1 (test code Assess Patient = Gluc POC Comment 1) [facility] GLUCOSE [id number] 02:50:00 Test Item Value Reference Range Interpretation Comments Gluc POC (test code = Gluc POC) 221 70-[address] [facility] GLUCOSE [id number] 02:50:00 Test Item Value Reference Range Interpretation Comments Gluc POC Comment 1 (test code Assess Patient = Gluc POC Comment 1) [facility] GLUCOSE [id number] 02:50:00 Test Item Value Reference Range Interpretation Comments Gluc POC (test code = Gluc POC) 221 70-[address] [facility] GLUCOSE [id number] 02:50:00 Test Item Value Reference Range Interpretation Comments Gluc POC Comment 1 (test code Assess Patient = Gluc POC Comment 1) [facility] GLUCOSE [id number] 02:50:00 Test Item Value Reference Range Interpretation Comments Gluc POC (test code = Gluc POC) 221 70-[address] [facility] GLUCOSE [id number] 02:50:00 Test Item Value Reference Range Interpretation Comments Gluc POC Comment 1 (test code Assess Patient = Gluc POC Comment 1) [facility] GLUCOSE [id number] 02:50:00 Test Item Value Reference Range Interpretation Comments Gluc POC (test code = Gluc POC) 221 70-[address] [facility] GLUCOSE [id number] 02:50:00 Test Item Value Reference Range Interpretation Comments Gluc POC Comment 1 (test code Assess Patient = Gluc POC Comment 1) [facility] GLUCOSE [id number] 02:50:00 Test Item Value Reference Range Interpretation Comments Gluc POC (test code = Gluc POC) 221 70-[address] [facility] GLUCOSE [id number] 02:50:00 Test Item Value Reference Range Interpretation Comments Gluc POC Comment 1 (test code Assess Patient = Gluc POC Comment 1) [facility] HospitalGgjonefCHFXJULZB1637-58-75 23:30:19 Test Item Value Reference Range Interpretation Comments eGFR (test code = eGFR) 65 [facility] HospitalPkjpfiqKFEFSZACP3697-79-96 23:30:19 Test Item Value Reference Range Interpretation Comments AGAP (test code = AGAP) 15.3 10.0-20.0 N [facility] HospitalFcukjriVSXVFCDOP1600-22-65 23:30:19 Test Item Value Reference Range Interpretation Comments Sodium Lvl (test code = Sodium Lvl) 140 135-145 N [facility] HospitalRxspvueUQIZPXUBV8994-33-10 23:30:19 Test Item Value Reference Range Interpretation Comments Creatinine Lvl (test code = Creatinine 0.9 0.5-1.4 N Lvl) [facility] HospitalCytxuawGZTXZSJJL6563-70-81 23:30:19 Test Item Value Reference Range Interpretation Comments Calcium Lvl (test code = Calcium Lvl) 8.4 8.5-10.5 L [facility] HospitalSrevbakFDTISMDUY9437-97-81 23:30:19 Test Item Value Reference Range Interpretation Comments CO2 (test code = CO2) 26 24-32 N [facility] HospitalLdqwbvlAXTETDOAR4023-40-10 23:30:19 Test Item Value Reference Range Interpretation Comments Potassium Lvl (test code = Potassium 4.3 3.5-5.1 N Lvl) [facility] HospitalQgtredpISMBEIHSG7542-39-89 23:30:19 Test Item Value Reference Range Interpretation Comments Chloride Lvl (test code = Chloride Lvl) 103 95-109 N [facility] HospitalLoqyldnWWJNSMFJF5360-60-00 23:30:19 Test Item Value Reference Range Interpretation Comments Glucose Lvl (test code = Glucose Lvl) 178 70-99 H [facility] HospitalGvezwafDYQKGNLVC9121-05-81 23:30:19 Test Item Value Reference Range Interpretation Comments BUN (test code = BUN) 18 7-22 N [facility] HospitalInvptzoGJXBDTYNU5057-06-00 23:30:19 Test Item Value Reference Range Interpretation Comments eGFR (test code = eGFR) 65 [facility] HospitalPafcuwyTTBSIHWXF3809-03-46 23:30:19 Test Item Value Reference Range Interpretation Comments AGAP (test code = AGAP) 15.3 10.0-20.0 N [facility] HospitalEybwzljKUBPJGLTP9561-58-39 23:30:19 Test Item Value Reference Range Interpretation Comments Sodium Lvl (test code = Sodium Lvl) 140 135-145 N [facility] HospitalClqmgzuSMRGPUVCX4353-47-83 23:30:19 Test Item Value Reference Range Interpretation Comments Creatinine Lvl (test code = Creatinine 0.9 0.5-1.4 N Lvl) [facility] HospitalRbcxrpmZOVBYDLHD4286-16-04 23:30:19 Test Item Value Reference Range Interpretation Comments Calcium Lvl (test code = Calcium Lvl) 8.4 8.5-10.5 L [facility] HospitalEgelkxjFHAEGAMJQ9781-80-06 23:30:19 Test Item Value Reference Range Interpretation Comments CO2 (test code = CO2) 26 24-32 N [facility] HospitalKwnkqgpUSMRYYDXT8309-03-82 23:30:19 Test Item Value Reference Range Interpretation Comments Potassium Lvl (test code = Potassium 4.3 3.5-5.1 N Lvl) [facility] HospitalUsmofeiSZERVHKMZ2453-05-84 23:30:19 Test Item Value Reference Range Interpretation Comments Chloride Lvl (test code = Chloride Lvl) 103 95-109 N [facility] HospitalOiewmlrTPINADTIL1628-09-83 23:30:19 Test Item Value Reference Range Interpretation Comments Glucose Lvl (test code = Glucose Lvl) 178 70-99 H [facility] HospitalJgagbpkZYQIKOBHJ8430-19-75 23:30:19 Test Item Value Reference Range Interpretation Comments BUN (test code = BUN) 18 7-22 N [facility] HospitalMzhvihpLFXJPWIOC4157-15-04 23:30:19 Test Item Value Reference Range Interpretation Comments eGFR (test code = eGFR) 65 [facility] HospitalHvafxwrLSCBMIDKL1146-21-42 23:30:19 Test Item Value Reference Range Interpretation Comments AGAP (test code = AGAP) 15.3 10.0-20.0 N [facility] HospitalZystaipJGCYZRGXP5500-10-18 23:30:19 Test Item Value Reference Range Interpretation Comments Sodium Lvl (test code = Sodium Lvl) 140 135-145 N [facility] HospitalJhxtlxsGLRRLFUUG7997-21-94 23:30:19 Test Item Value Reference Range Interpretation Comments Creatinine Lvl (test code = Creatinine 0.9 0.5-1.4 N Lvl) [facility] HospitalDvsczroLBERILMYV7285-29-87 23:30:19 Test Item Value Reference Range Interpretation Comments Calcium Lvl (test code = Calcium Lvl) 8.4 8.5-10.5 L [facility] HospitalVwexnmqRGPYZKFTP6675-23-92 23:30:19 Test Item Value Reference Range Interpretation Comments CO2 (test code = CO2) 26 24-32 N [facility] HospitalQqukczcAFKZUKQBP0960-55-78 23:30:19 Test Item Value Reference Range Interpretation Comments Potassium Lvl (test code = Potassium 4.3 3.5-5.1 N Lvl) [facility] HospitalQshtoofBHDZOOCBK0780-40-23 23:30:19 Test Item Value Reference Range Interpretation Comments Chloride Lvl (test code = Chloride Lvl) 103 95-109 N [facility] HospitalPwaxbfhNBHBJJRWW0012-93-68 23:30:19 Test Item Value Reference Range Interpretation Comments Glucose Lvl (test code = Glucose Lvl) 178 70-99 H [facility] HospitalPnpaqlzPBLJVVNMO1450-98-44 23:30:19 Test Item Value Reference Range Interpretation Comments BUN (test code = BUN) 18 7-22 N [facility] HospitalBhremffDONYCTRTQ6623-26-37 23:30:19 Test Item Value Reference Range Interpretation Comments eGFR (test code = eGFR) 65 [facility] HospitalHgacrkxTYCDIHYME4105-92-42 23:30:19 Test Item Value Reference Range Interpretation Comments AGAP (test code = AGAP) 15.3 10.0-20.0 N [facility] HospitalBenviijCAFGKEYBL9225-00-17 23:30:19 Test Item Value Reference Range Interpretation Comments Sodium Lvl (test code = Sodium Lvl) 140 135-145 N [facility] HospitalYpcmgnkNRDYITEGI0991-81-23 23:30:19 Test Item Value Reference Range Interpretation Comments Creatinine Lvl (test code = Creatinine 0.9 0.5-1.4 N Lvl) [facility] HospitalGxkxujtTXCJXKSXK5515-95-23 23:30:19 Test Item Value Reference Range Interpretation Comments Calcium Lvl (test code = Calcium Lvl) 8.4 8.5-10.5 L [facility] HospitalNfaarhoDCOYUTGEO1850-48-60 23:30:19 Test Item Value Reference Range Interpretation Comments CO2 (test code = CO2) 26 24-32 N [facility] HospitalFcyzqaaRPHAAZSAS3294-88-83 23:30:19 Test Item Value Reference Range Interpretation Comments Potassium Lvl (test code = Potassium 4.3 3.5-5.1 N Lvl) [facility] HospitalUjwkxexETBMBCEHU4497-13-43 23:30:19 Test Item Value Reference Range Interpretation Comments Chloride Lvl (test code = Chloride Lvl) 103 95-109 N [facility] HospitalPlroywlMZIAHDEAE1656-27-46 23:30:19 Test Item Value Reference Range Interpretation Comments Glucose Lvl (test code = Glucose Lvl) 178 70-99 H [facility] HospitalBcolelpBSKLNUCAM4932-65-63 23:30:19 Test Item Value Reference Range Interpretation Comments BUN (test code = BUN) 18 7-22 N [facility] HospitalVcipzorHFANRDUKU1912-19-04 23:30:19 Test Item Value Reference Range Interpretation Comments eGFR (test code = eGFR) 65 [facility] HospitalHpsvjfwBGKUNQAUA1558-95-02 23:30:19 Test Item Value Reference Range Interpretation Comments AGAP (test code = AGAP) 15.3 10.0-20.0 N [facility] HospitalKqmzpklRWRPKGQBU8138-01-78 23:30:19 Test Item Value Reference Range Interpretation Comments Sodium Lvl (test code = Sodium Lvl) 140 135-145 N [facility] HospitalZbnfzpeTQIBCRVZJ1322-12-25 23:30:19 Test Item Value Reference Range Interpretation Comments Creatinine Lvl (test code = Creatinine 0.9 0.5-1.4 N Lvl) [facility] HospitalJuuxwjfPSTMCYLWT2394-03-97 23:30:19 Test Item Value Reference Range Interpretation Comments Calcium Lvl (test code = Calcium Lvl) 8.4 8.5-10.5 L [facility] HospitalOcrhyypZOGULUGKR3702-63-85 23:30:19 Test Item Value Reference Range Interpretation Comments CO2 (test code = CO2) 26 24-32 N [facility] HospitalUehulqcGYISCFXWP6419-93-47 23:30:19 Test Item Value Reference Range Interpretation Comments Potassium Lvl (test code = Potassium 4.3 3.5-5.1 N Lvl) [facility] HospitalGowpmziWZFJLSBSR1438-47-92 23:30:19 Test Item Value Reference Range Interpretation Comments Chloride Lvl (test code = Chloride Lvl) 103 95-109 N [facility] HospitalPgarhagHTXWFDHAZ4465-12-84 23:30:19 Test Item Value Reference Range Interpretation Comments Glucose Lvl (test code = Glucose Lvl) 178 70-99 H [facility] HospitalZgpglynIIFJHYSDV3215-87-14 23:30:19 Test Item Value Reference Range Interpretation Comments BUN (test code = BUN) 18 7-22 N [facility] HospitalLptzjmiTFEJEVHJV4416-43-33 23:30:19 Test Item Value Reference Range Interpretation Comments eGFR (test code = eGFR) 65 [facility] HospitalUpqsylqVVWANPFFT1891-43-56 23:30:19 Test Item Value Reference Range Interpretation Comments AGAP (test code = AGAP) 15.3 10.0-20.0 N [facility] HospitalNdsmyezSJNYIQYXH8848-52-48 23:30:19 Test Item Value Reference Range Interpretation Comments Sodium Lvl (test code = Sodium Lvl) 140 135-145 N [facility] HospitalHxdkkenXMFNQSIYU0686-48-62 23:30:19 Test Item Value Reference Range Interpretation Comments Creatinine Lvl (test code = Creatinine 0.9 0.5-1.4 N Lvl) [facility] HospitalMtddrjwUAWJYCETB1695-12-18 23:30:19 Test Item Value Reference Range Interpretation Comments Calcium Lvl (test code = Calcium Lvl) 8.4 8.5-10.5 L [facility] HospitalHwfjidqFHHWCXVZO5605-91-16 23:30:19 Test Item Value Reference Range Interpretation Comments CO2 (test code = CO2) 26 24-32 N [facility] HospitalGmvupnlHQIPOTTZV6886-97-34 23:30:19 Test Item Value Reference Range Interpretation Comments Potassium Lvl (test code = Potassium 4.3 3.5-5.1 N Lvl) [facility] HospitalLtvnbvkKQRTQOZKG3764-13-41 23:30:19 Test Item Value Reference Range Interpretation Comments Chloride Lvl (test code = Chloride Lvl) 103 95-109 N [facility] HospitalEnwggmbEGUFXXTKV9804-95-17 23:30:19 Test Item Value Reference Range Interpretation Comments Glucose Lvl (test code = Glucose Lvl) 178 70-99 H [facility] HospitalErxweodLSFHOWBKK6991-23-78 23:30:19 Test Item Value Reference Range Interpretation Comments BUN (test code = BUN) 18 7-22 N [facility] HospitalGmkddcnSEDEIAPYI6760-17-33 23:30:19 Test Item Value Reference Range Interpretation Comments eGFR (test code = eGFR) 65 [facility] HospitalLbpmtoxTXGSAICFG3421-34-78 23:30:19 Test Item Value Reference Range Interpretation Comments AGAP (test code = AGAP) 15.3 10.0-20.0 N [facility] HospitalDssxmmsHGATRZCWZ0750-23-98 23:30:19 Test Item Value Reference Range Interpretation Comments Sodium Lvl (test code = Sodium Lvl) 140 135-145 N [facility] HospitalJwyptpoSPAUHHCBI9733-62-96 23:30:19 Test Item Value Reference Range Interpretation Comments Creatinine Lvl (test code = Creatinine 0.9 0.5-1.4 N Lvl) [facility] HospitalRwhlvinVPXVUTNPG0447-02-31 23:30:19 Test Item Value Reference Range Interpretation Comments Calcium Lvl (test code = Calcium Lvl) 8.4 8.5-10.5 L [facility] HospitalNsqldezFMJCJRUOY8861-64-71 23:30:19 Test Item Value Reference Range Interpretation Comments CO2 (test code = CO2) 26 24-32 N [facility] HospitalPbyiggsUTGTXPGLA7850-74-23 23:30:19 Test Item Value Reference Range Interpretation Comments Potassium Lvl (test code = Potassium 4.3 3.5-5.1 N Lvl) [facility] HospitalMfugdqhJEDBESHDL8808-89-17 23:30:19 Test Item Value Reference Range Interpretation Comments Chloride Lvl (test code = Chloride Lvl) 103 95-109 N [facility] HospitalOprkfsxMCTBJGZAX4584-51-19 23:30:19 Test Item Value Reference Range Interpretation Comments Glucose Lvl (test code = Glucose Lvl) 178 70-99 H [facility] HospitalKobzjheNXLZSJWAA7461-00-65 23:30:19 Test Item Value Reference Range Interpretation Comments BUN (test code = BUN) 18 7-22 N [facility] HospitalCogfcmxKBUVZAAYT2279-72-66 23:30:19 Test Item Value Reference Range Interpretation Comments eGFR (test code = eGFR) 65 [facility] HospitalSjrhuxfAJFNTSKML1563-75-76 23:30:19 Test Item Value Reference Range Interpretation Comments AGAP (test code = AGAP) 15.3 10.0-20.0 N [facility] HospitalCldetqxRGZOZNAFL3490-00-53 23:30:19 Test Item Value Reference Range Interpretation Comments Sodium Lvl (test code = Sodium Lvl) 140 135-145 N [facility] HospitalHhxyefiNRCFFWPJZ4834-11-18 23:30:19 Test Item Value Reference Range Interpretation Comments Creatinine Lvl (test code = Creatinine 0.9 0.5-1.4 N Lvl) [facility] HospitalKrawkxbXXMKBLEPY0847-17-57 23:30:19 Test Item Value Reference Range Interpretation Comments Calcium Lvl (test code = Calcium Lvl) 8.4 8.5-10.5 L [facility] HospitalYgvcjaqJYDLEKZLL8422-24-47 23:30:19 Test Item Value Reference Range Interpretation Comments CO2 (test code = CO2) 26 24-32 N [facility] HospitalGueigyjKYZAAJMZX3902-94-09 23:30:19 Test Item Value Reference Range Interpretation Comments Potassium Lvl (test code = Potassium 4.3 3.5-5.1 N Lvl) [facility] HospitalZzykgbfUJERJKOEC9620-71-06 23:30:19 Test Item Value Reference Range Interpretation Comments Chloride Lvl (test code = Chloride Lvl) 103 95-109 N [facility] HospitalSjziebsORRRRUPDB1146-20-84 23:30:19 Test Item Value Reference Range Interpretation Comments Glucose Lvl (test code = Glucose Lvl) 178 70-99 H [facility]XppatalPKELVUGQF4764-87-42 23:30:19 Test Item Value Reference Range Interpretation Comments BUN (test code = BUN) 18 7-[address] [facility] GLUCOSE QGUPGHF6613-42-96 21:09:00 Test Item Value Reference Range Interpretation Comments Gluc POC Comment 1 (test code = Verify w/Lab Gluc POC Comment 1) [facility] GLUCOSE [id number] 21:09:00 Test Item Value Reference Range Interpretation Comments Gluc POC (test code = Gluc POC) 194 70-[address] [facility] GLUCOSE CIGTLRP1512-73-46 21:09:00 Test Item Value Reference Range Interpretation Comments Gluc POC Comment 1 (test code = Verify w/Lab Gluc POC Comment 1) [facility] GLUCOSE [id number] 21:09:00 Test Item Value Reference Range Interpretation Comments Gluc POC (test code = Gluc POC) 194 70-[address] [facility] GLUCOSE [id number] 21:09:00 Test Item Value Reference Range Interpretation Comments Gluc POC Comment 1 (test code = Verify w/Lab Gluc POC Comment 1) [facility] GLUCOSE [id number] 21:09:00 Test Item Value Reference Range Interpretation Comments Gluc POC (test code = Gluc POC) 194 70-[address] [facility] GLUCOSE ICBTEPP4431-04-31 21:09:00 Test Item Value Reference Range Interpretation Comments Gluc POC Comment 1 (test code = Verify w/Lab Gluc POC Comment 1) [facility] GLUCOSE [id number] 21:09:00 Test Item Value Reference Range Interpretation Comments Gluc POC (test code = Gluc POC) 194 70-[address] [facility] GLUCOSE [id number] 21:09:00 Test Item Value Reference Range Interpretation Comments Gluc POC Comment 1 (test code = Verify w/Lab Gluc POC Comment 1) [facility] GLUCOSE [id number] 21:09:00 Test Item Value Reference Range Interpretation Comments Gluc POC (test code = Gluc POC) 194 70-[address] [facility] GLUCOSE [id number] 21:09:00 Test Item Value Reference Range Interpretation Comments Gluc POC Comment 1 (test code = Verify w/Lab Gluc POC Comment 1) [facility] GLUCOSE [id number] 21:09:00 Test Item Value Reference Range Interpretation Comments Gluc POC (test code = Gluc POC) 194 70-[address] [facility] GLUCOSE [id number] 21:09:00 Test Item Value Reference Range Interpretation Comments Gluc POC Comment 1 (test code = Verify w/Lab Gluc POC Comment 1) [facility] GLUCOSE [id number] 21:09:00 Test Item Value Reference Range Interpretation Comments Gluc POC (test code = Gluc POC) 194 70-[address] [facility] GLUCOSE [id number] 21:09:00 Test Item Value Reference Range Interpretation Comments Gluc POC Comment 1 (test code = Verify w/Lab Gluc POC Comment 1) [facility] GLUCOSE [id number] 21:09:00 Test Item Value Reference Range Interpretation Comments Gluc POC (test code = Gluc POC) 194 70-99 H [facility]
[2023-03-23] MEDS ORDERED: MIDAZOLAM HCL 2 MG/2 ML INJ ONE (14:21)
[2023-03-23] MEDS ORDERED: ETOMIDATE 20 MG/10 ML VIAL IV ONE (14:22)
[2023-03-23] MEDS ORDERED: ONDANSETRON 4 MG/2 ML VIAL ONE (14:22)
[2023-03-23] MEDS ORDERED: MORPHINE 4 MG/ML SYR ONE (14:22)
[2023-03-23] MEDS ORDERED: NA CHLORIDE 0.9% 500 ML ONE (14:22)
[2023-03-23] MEDS ORDERED: LEVALBUTEROL 1.25 MG/3 ML NEB ONE (15:17)
[2023-03-23 15:31] LABS: Absolute Lymphocytes (CBC) 0.9 K/uL (0.7-4.9); Hematocrit 39.8 % (36.0-45.0); Lymphocytes % 7.2 % (15.3-44.8); MCV 78.9 fL (80-100); MPV 8.7 fL (7.6-11.3); RBC Red Blood Cell Count 5.04 M/uL (3.86-4.86)
[2023-03-23 15:36] LABS: Protime INR 0.97
[2023-03-23 15:40] LABS: SARS-CoV-2 Antigen Rapid Res Negative (Negative)
[2023-03-23 15:55] LABS: Troponin High Sensitivity 5.8 pg/mL (<58.9)
[2023-03-23 15:56] LABS: Potassium 4.8 mEq/L (3.5-5.1)
[2023-03-23 16:27] LABS: Specific Gravity 1.026 (1.005-1.030); Urine Bacteria <20 /HPF (<20); Urine Bilirubin NEGATIVE (Negative); Urine Blood Negative (Negative); Urine Clarity Clear (Clear); Urine Color Yellow (Yellow); Urine Glucose 3+ (Negative); Urine Mucus Slight /HPF (None Seen); Urine Protein TRACE (Negative); Urine Urobilinogen Normal (Normal); Urine pH 5.5 (5.0-7.0)
--- NOTE | 2023-03-23 17:03 | RAD REPORT ---
[facility] DES[facility] 4[facility]06 pm CLINICAL HISTORY: SOB COMPARISON: Chest Single View dated 03/13/2023; Chest Single View dated 12/07/2019; Chest Single View dated 04/10/2017; CHEST PA AND LAT 2 VIEW dated 07/14/2015 TECHNIQUE: Portable AP view of the chest. FINDINGS: The lungs show no focal consolidation. Stable mildly prominent central interstitium which could relate to fibrotic changes or mild congestion. No pneumothorax or effusion. The cardiomediasti nal contours are unremarkable. IMPRESSION: Stable mild central interstitial prominence. No other acute finding.
[2023-03-23] MEDS ORDERED: CEFTRIAXONE 1000 MG/VIAL ONE (17:12)
[2023-03-23 18:23] LABS: Blood Morphology Comment NOT SEEN (NOT SEEN); Platelet Estimate ADEQ
--- NOTE | 2023-03-23 18:34 | RAD REPORT ---
EXAM DESCRIPTION: CT - Chest For Pe Angio - 03/23/2023 6:15 pm CLINICAL HISTORY: SOB COMPARISON: CTANGIO CHEST FOR PE dated 12/18/2011; CTANGIO CHEST FOR PE dated 01/21/2011; Facial Bones W Con Mpr dated 03/13/2023 TECHNIQUE: Thin axial CT images of the chest were obtained following administration of 90 mL Isovue 370 IV contrast. Multiplanar reconstructions, and maximum intensity projection reconstructions were g enerated and reviewed. Exam utilizes a protocol for optimal evaluation of pulmonary arterial tree. All CT scans are performed using dose optimization technique as appropriate and may include automated exposure control or mA/KV adjustment according to patient size. FINDINGS: Pulmonary arteries are normal. No emboli or other suspicious finding. No acute or signific ant aorta findings. No mass or infiltrate in the lung parenchyma. 7 millimeter right middle lobe pleural-based slightly i rregular nodule seen on axial image 59 stable since 2011. No pleural thickening or pleural effusion. No pneumothorax. No abnormal mediastinal or hilar masses or lymphadenopathy seen. No chest wall mass or abnormal axill iary lymphadenopathy. IMPRESSION: No evidence of acute central pulmonary emboli. No other acute findings in the chest.
--- NOTE | 2023-03-23 19:02 | ER ---
Nurse's Notes [facility] Name: Sharon Delgadillo Age: 78 yrs Sex: Female : 1945 Arrival Date: 03/23/2023 Time: 13:59 Bed 6 Private MD: Diagnosis: Lactic acidosis;UTI/ Urinary tract infection, site not specified;Diarrhea, unspecified Presentation: 03/23 14:24 Chief complaint: Patient states: Generalized weakness, cough and congestion for about a nj1 week, was discharged from the hospital on Saturday. "Started with a sore throat but now it is in my chest". Coronavirus screen: Vaccine status: Patient reports receiving the 2nd dose of the covid vaccine. Ebola Screen: Patient denies travel to an Ebola-affected area in the 21 days before illness onset. Initial Sepsis Screen: Does the patient meet any 2 criteria? No. Patient's initial sepsis screen is negative. Does the patient have a suspected source of infection? No. Patient's initial sepsis screen is negative. Risk Assessment: Do you want to hurt yourself or someone else? Patient reports no desire to harm self or others. Onset of symptoms was March 16, 2023. 14:24 Method Of Arrival: Ambulatory [facility] 14:24 Acuity: NELIDA 3 nj1 Historical: - Allergies: 14:27 Morphine; nj1 - PMHx: 14:27 COPD; Diabetes - NIDDM; Hypertension; Hypothyroidism; nj1 - PSHx: 14:27 Appendectomy; Cholecystectomy; Hysterectomy; Knee replacement, right; Left rotator cuff nj1 repair; Bunionectomy; - Immunization history:: Client reports receiving the 2nd dose of the Covid vaccine. - Social history:: Smoking status: Patient/guardian denies using tobacco, but has a distant history of tobacco abuse. Screenin:39 [facility] ED Fall Risk Assessment (Adult) History of falling in the last 3 months, ko1 including since admission No falls in past 3 months (0 pts) Confusion or Disorientation No (0 pts) Intoxicated or Sedated No (0 pts) Impaired Gait Yes (1 pt) Mobility Assist Device Used Yes (1 pt) Altered Elimination No (0 pt) Score/Fall Risk Level 0 - 2 = Low Risk Oriented to surroundings, Maintained a safe environment, Educated pt \\T\\ family on fall prevention, incl call for assistance when getting out of bed, Assessed \\T\\ reinforced patient's understanding of fall precautions, Provided non-skid footwear, Hourly rounding (assess needs \\T\\ fall precautionary measures) done, Used ambulatory aids as needed (educated on \\T\\ assisted with), Used gait belt as appropriate. Abuse screen: Denies threats or abuse. Denies injuries from another. Nutritional screening: No deficits noted. Tuberculosis screening: No symptoms or risk factors identified. Assessment: 16:39 General: Appears in no apparent distress. uncomfortable, Behavior is calm, cooperative, ko1 appropriate for age. Pain: Denies pain. Neuro: No deficits noted. Cardiovascular: No deficits noted. Respiratory: Reports cough that is persistent. GI: No deficits noted. : No deficits noted. EENT: No deficits noted. Derm: No deficits noted. Musculoskeletal: No deficits noted. 19:49 Reassessment: attempted to call report. aa9 Vital Signs: 14:24 BP 155 / 62; Pulse 87; Resp 20; Temp 98.8(O); Pulse Ox 98% ; Weight 88 kg; Height 5 ft. nj1 9 in. ; Pain 7/10; 16:39 BP 155 / 60; Pulse 88; Resp 20; Pulse Ox 98% ; ko1 17:37 BP 167 / 67; Pulse 85; Resp 15; Pulse Ox 97% on R/A; ko1 18:41 BP 159 / 62; Pulse 83; Resp 16; Pulse Ox 97% ; ko1 19:41 BP 148 / 55; Pulse 94; Resp 17 S; Pulse Ox 98% on R/A; as6 14:24 Body Mass Index 28.65 (88.00 kg, 175.26 cm) nj1 14:24 Pain Scale: Adult ct1 ED Course: 14:01 Patient arrived in ED. am2 14:01 Lei Mcgovern PA is PHCP. [facility] 14:01 Owen Sargent MD is Attending Physician. [facility] 14:27 Triage completed. nj1 14:28 Arm band placed on left wrist. nj1 14:47 Miguel Aggarwal, SPIKE is Primary Nurse. bp 15:13 Basic Metabolic Panel Sent. ko1 15:13 CBC with Diff Sent. ko1 15:13 NT PRO-BNP Sent. ko1 15:13 PT-INR Sent. ko1 15:13 Troponin HS Sent. ko1 15:13 Influenza Screen (a \\T\\ B) Sent. ko1 15:13 Lactate w/ 2H reflex if indic. Sent. ko1 15:13 SARS RAPID Sent. ko1 15:13 Blood Culture Adult (2) Sent. ko1 15:13 Strep Sent. ko1 15:15 Inserted saline lock: 20 gauge in right forearm, using aseptic technique. Blood bp collected. 15:53 Patient has correct armband on for positive identification. Placed in gown. Bed in low mm9 position. Call light in reach. Side rails up X2. Adult w/ patient. Warm blanket given. Client placed on continuous cardiac and pulse oximetry monitoring. NIBP monitoring applied. panel monitor on. Pulse ox on. NIBP on. 15:53 Initial lab(s) drawn, by ED staff, sent to lab. EKG done, by ED staff, reviewed by Lei LINDER. 15:54 Troponin HS Sent. mm9 15:54 NT PRO-BNP Sent. mm9 15:54 Basic Metabolic Panel Sent. mm9 15:54 XRAY Chest (1 view) Sent. mm9 16:08 XRAY Chest (1 view) In Process Unspecified. EDMS 16:38 Urine Culture Sent. ko1 16:38 Throat Culture Sent. ko1 16:38 Manual Differential Sent. ko1 16:38 Blood Culture Adult (2) Sent. ko1 16:39 No provider procedures requiring assistance completed. ko1 18:17 CT Chest For PE Angio In Process Unspecified. EDMS 19:00 Marco Antonio Rainey MD is Hospitalizing Provider. jmm 19:39 Patient admitted, IV remains in place. aa9 Administered Medications: 15:12 Drug: Levalbuterol Inhalation 1.25 mg Route: Inhalation; ko1 16:38 Drug: NS 0.9% IV 1000 ml Route: IV; Rate: 1 bolus; Site: right forearm; ko1 17:07 Drug: Rocephin IV 1 grams Route: IV; Rate: calculated rate; Site: right forearm; ko1 19:43 Drug: NS 0.9% IV 1000 ml Route: IV; Rate: 1 bolus; Site: right forearm; sp5 19:44 Drug: NS 0.9% IV 1000 ml Route: IV; Rate: 100 ml/hr; Site: right forearm; sp5 Medication: 16:39 VIS not applicable for this client. ko1 Outcome: 19:01 Decision to Hospitalize by Provider. [facility] 20:43 Patient left the ED. rl Signatures: Dispatcher [employer] EDMS Lei Mcgovern PA PA jmm Moreno, Amanda am2 Miguel Aggarwal, RN RN bp Hernando Loaiza, SPIKE RN as6 Eileen Mckeon RN RN aa9 Candice Rodriguez RN RN [email or web address] Charlene Stanley 9 Jhoana Craig RN RN nj1 Jesica Martinez RN RN sp5 Corrections: (The following items were deleted from the chart) 18:35 18:04 LACTATE+C.LAB.BRZ drawn and sent. [facility] EDPR 19:39 19:38 Condition: stable rl [facility] 19:39 19:38 Admitted to Med/surg accompanied by tech, room 229, with chart, Report called to rl Mahan [facility] 19:39 19:38 Instructed on the need for admit, rl shine
--- NOTE | 2023-03-23 19:02 | EDPHYS ---
Physician Documentation [facility] Name: Sharon Delgadillo Age: 78 yrs Sex: Female : 1945 Arrival Date: 03/23/2023 Time: 13:59 Bed 6 Private MD: SEBASTIEN Physician Owen Sargent HPI: 03/23 14:28 This 78 yrs old Female presents to ER via Ambulatory with complaints of Cough, General jmm Weakness. 14:28 The patient or guardian reports cough. Onset: The symptoms/episode began/occurred jmm gradually, 1 week(s) ago. Is an 78-year-old female with history of COPD, diabetes mellitus, hypertension that presents emerged part with complaints of cough, fatigue, shortness of breath, diarrhea beginning approximately a week ago. Patient was recently hospitalized. Symptoms began while she was being hospitalized. Patient recently had a temporal artery biopsy and is currently taking prednisone. Patient denies vomiting.. Historical: - Allergies: 14:27 Morphine; nj1 - PMHx: 14:27 COPD; Diabetes - NIDDM; Hypertension; Hypothyroidism; nj1 - PSHx: 14:27 Appendectomy; Cholecystectomy; Hysterectomy; Knee replacement, right; Left rotator cuff nj1 repair; Bunionectomy; - Immunization history:: Client reports receiving the 2nd dose of the Covid vaccine. - Social history:: Smoking status: Patient/guardian denies using tobacco, but has a distant history of tobacco abuse. ROS: 14:28 Constitutional: Positive for body aches, chills, fatigue. jm 14:28 Respiratory: Positive for cough. 14:28 Abdomen/GI: Positive for diarrhea. 14:28 Neuro: Positive for weakness. 14:28 All other systems are negative. Exam: 14:28 Constitutional: This is a well developed, well nourished patient who is awake, alert, jmm and in no acute distress. Head/Face: atraumatic. Eyes: EOMI, no conjunctival erythema appreciated ENT: Moist Mucus Membranes Neck: Trachea midline, Supple Chest/axilla: Normal chest wall appearance and motion. Cardiovascular: Regular rate and rhythm. No edema appreciated Respiratory: Normal respirations, no respiratory distress appreciated Abdomen/GI: Non distended Back: Normal ROM Skin: General appearance color normal 14:28 Musculoskeletal/extremity: ROM: intact in all extremities. 14:28 Skin: Appearance: Color: normal in color. 14:28 Neuro: Motor: is normal. 14:28 Psych: Behavior/mood is pleasant, cooperative. Vital Signs: 14:24 BP 155 / 62; Pulse 87; Resp 20; Temp 98.8(O); Pulse Ox 98% ; Weight 88 kg; Height 5 ft. nj1 9 in. ; Pain 7/10; 16:39 BP 155 / 60; Pulse 88; Resp 20; Pulse Ox 98% ; ko1 17:37 BP 167 / 67; Pulse 85; Resp 15; Pulse Ox 97% on R/A; ko1 18:41 BP 159 / 62; Pulse 83; Resp 16; Pulse Ox 97% ; ko1 19:41 BP 148 / 55; Pulse 94; Resp 17 S; Pulse Ox 98% on R/A; as6 14:24 Body Mass Index 28.65 (88.00 kg, 175.26 cm) nj1 14:24 Pain Scale: Adult nj1 MDM: 14:34 Patient medically screened. jeronimo 18:43 Differential Diagnosis: Bronchitis Influenza Upper Respiratory Infection Other [facility] Pneumonia, viral syndrome. Data reviewed: vital signs, nurses notes, lab test result(s). Consideration of Admission/Observation Escalation of care including admission/observation considered. I considered the following discharge prescriptions or medication management in the emergency department Medications were administered in the Emergency Department. See MAR. Counseling: I had a detailed discussion with the patient and/or guardian regarding: the historical points, exam findings, and any diagnostic results supporting the discharge/admit diagnosis, lab results, radiology results, the need for further work-up and treatment in the hospital. 03/23 14:28 Order name: Basic Metabolic Panel; Complete Time: 16:01 [facility] 03/23 14:28 Order name: CBC with Diff; Complete Time: 18:27 [facility] 03/23 14:28 Order name: NT PRO-BNP; Complete Time: 16:01 [facility] 03/23 14: Order name: PT-INR; Complete Time: 15:37 [facility] 03/23 14: Order name: Troponin HS; Complete Time: 16:01 [facility] 03/23 14:28 Order name: SARS RAPID; Complete Time: 15:42 [facility] 03/23 14:28 Order name: Lactate w/ 2H reflex if indic.; Complete Time: 15:52 [facility] 03/23 14:28 Order name: Influenza Screen (a \T\ B); Complete Time: 15:52 [facility] 03/23 14:28 Order name: Blood Culture Adult (2) [facility] 03/23 14:29 Order name: Strep [facility] 03/23 15:42 Order name: Manual Differential; Complete Time: 18:27 [facility] 03/23 15:43 Order name: Throat Culture [facility] 03/23 16:01 Order name: Urinalysis w/ reflexes; Complete Time: 17:01 [facility] 03/23 16:30 Order name: Urine Culture [facility] 03/23 18:34 Order name: Lactate Sepsis 2 HR Follow-up; Complete Time: 18:37 [facility] 03/23 14:28 Order name: XRAY Chest (1 view); Complete Time: 17:07 [facility] 03/23 17:07 Order name: CT Chest For PE Angio; Complete Time: 18:37 [facility] 03/23 14:28 Order name: EKG; Complete Time: 14:30 [facility] 03/23 14:28 Order name: Cardiac monitoring; Complete Time: 15:12 [facility] 03/23 14:28 Order name: EKG - Nurse/Tech; Complete Time: 15:50 [facility] 03/23 14:28 Order name: IV Saline Lock; Complete Time: 15:12 [facility] 03/23 14:28 Order name: Labs collected and sent; Complete Time: 15:12 [facility] 03/23 14:28 Order name: O2 Per Protocol; Complete Time: 15:12 [facility] 03/23 14:28 Order name: O2 Sat Monitoring; Complete Time: 15:13 [facility] Administered Medications: 15:12 Drug: Levalbuterol Inhalation 1.25 mg Route: Inhalation; ko1 16:38 Drug: NS 0.9% IV 1000 ml Route: IV; Rate: 1 bolus; Site: right forearm; ko1 17:07 Drug: Rocephin IV 1 grams Route: IV; Rate: calculated rate; Site: right forearm; ko1 19:43 Drug: NS 0.9% IV 1000 ml Route: IV; Rate: 1 bolus; Site: right forearm; sp5 19:44 Drug: NS 0.9% IV 1000 ml Route: IV; Rate: 100 ml/hr; Site: right forearm; sp5 Disposition Summary: 03/23/23 19:01 Hospitalization Ordered Hospitalization Status: Observation jmm Provider: Marco Antonio Rainey Location: Telemetry/MedSurg (observation) jmm Condition: Stable jmm Problem: new jmm Symptoms: are unchanged jmm Bed/Room Type: Standard [facility] Room Assignment: 409(03/23/23 19:43) cg Diagnosis - Lactic acidosis jmm - UTI/ Urinary tract infection, site not specified jmm - Diarrhea, unspecified jmm Forms: - Medication Reconciliation Form jmm - SBAR form jmm Signatures: Dispatcher [employer] EDMS Owen Sargent MD MD cha Mickail, Joel, PA PA jmm Indra Marsh, SPEECH PATHOLOGY SUPERVISOR-C SPEECH PATHOLOGY SUPERVISOR-Cla1 Carina Alarcon, RN RN cg Candice Rodriguez RN RN ko1 Jhoana Craig RN RN nj1 Jesica Martinez RN RN sp5 Corrections: (The following items were deleted from the chart) 18:35 17:46 LACTATE+C.LAB.BRZ ordered. [facility] 19:43 19:01 jmm cg
[2023-03-23] MEDS ORDERED: NA CHLORIDE 0.9% 2,000 ML ONE (19:23)
--- NOTE | 2023-03-23 19:23 | P.HP ---
Certification for Inpatient Patient admitted to: Observation With expected LOS: <2 Midnights Patient will require the following post-hospital care: None Practitioner: I am a practitioner with admitting privileges, knowledge of patient current condition, hospital course, and medical plan of care. Services: Services provided to patient in accordance with Admission requirements found in Title 42 Section 412.3 of the Code of Federal Regulations Patient History Date of Service: 03/23/23 Reason for admission: UTI, lactic acidosis, dyspnea History of Present Illness: 78-year-old female with history of COPD, insulin-dependent diabetes, hypertension, hyperlipidemia, hypothyroidism presents emergency department with chief complaint dyspnea, cough, weakness. She was recently seen here in the hospital admitted on the discharged on . She had a headache during her admission and had a temporal artery biopsy performed, she has been on prednisone 60 mg daily since then. I was able to review the results from the temporal artery biopsy which was negative for temporal arteritis. She reports since leaving the hospital she had sore throat which seem to have "settled" into her chest. She reports ongoing cough and shortness of breath since then. She also does report urinary frequency. She was evaluated in the emergency department her labs were significant for leukocytosis with also count 1.9 lactic acid 4.3, repeat 4.2 sodium 130 BUN 32 creatinine 1.02 GFR 56 glucose 270 urinalysis with leuk esterase, some white blood cells/red blood cells. Nitrate negative. Patient does have urinary frequency, mild suprapubic tenderness. She was given IV antibioticsRocephin in the emergency department as well as a nebulizer treatment. Only 1 out of 4 SIRS criteria present with leukocytosis does not meet criteria for sepsis at this time lactic acidosis likely secondary to dehydration, possibly related to corticosteroids. We will admit under observation for UTI, dyspnea, lactic acidosis. Allergies morphine Allergy (Intermediate, Verified 03/15/23 21:15) hallucination Home Medications: Carvedilol [Coreg] 9.375 mg PO BID 12/18/11 Metformin HCl [Glucophage] 500 mg PO BIDWM 12/18/11 Omeprazole Magnesium [Prilosec Otc] 20 mg PO DAILY 12/18/11 Cholecalciferol (Vitamin D3) [Vitamin D] 1,000 unit PO DAILY 04/02/12 Amlodipine Benzoate [Katerzia] 5 mg PO DAILY 03/15/23 Duloxetine [Cymbalta *] 20 mg PO BEDTIME 03/15/23 Fluticasone Propion/Salmeterol [Wixela 250-50 Inhub] 1 puff IH DIRECTED PRN 03/15/23 Levothyroxine Sodium [Tirosint] 0.137 mcg PO DAILY 03/15/23 Losartan/Hydrochlorothiazide [Losartan-Hctz 100-25 mg Tab] 1 tab PO DAILY 03/15/23 Methenamine Hippurate 1 tab PO BID 03/15/23 Alcohol Antiseptic Pads [Alcohol Swabs] 1 each TP DAILY #1 box 03/16/23 Blood Sugar Diagnostic [Blood Glucose Test Strip] 1 each MC DAILY #30 strip 03/16/23 Blood-Glucose Meter [Blood Glucose Monitoring] 1 each MC DAILY #1 ea 03/16/23 Hydrocodone 5/APAP 325 [[place] 5/325*] 1 tab PO Q6H PRN #12 tab 03/16/23 Insulin Glargine,Hum.rec.anlog [Lantus Solostar] 10 unit SQ DAILY #15 ml 03/16/23 Pen Needle, Diabetic [Insulin Pen Needle] 1 dis.ndl MC DAILY #100 dis.ndl 03/16/23 Ubrogepant [Ubrelvy] 50 mg PO ONCE PRN #20 tab 03/16/23 carBAMazepine [Tegretol*] 200 mg PO DAILY #14 tab 03/16/23 predniSONE [Prednisone*] 60 mg PO DAILY #30 tab 03/16/23 - Past Medical/Surgical History Diabetic: Yes -: Type 2 Diabetes, Non-Insulin Dependent -: Hypertension -: Hypothyroidism -: Hyperlipidemia -: CVA -: Spinal Stenosis -: Coronary Artery Disease -: Right knee replacement -: Appendectomy -: Cholecystectomy -: Hysterectomy Psychosocial/ Personal History: Patient lives at home with her daughter. - Family History Father -: Heart disease Mother -: Heart disease, Diabetes, Stroke Sister -: Diabetes, Cancer - Social History Alcohol use: No CD- Drugs: No Caffeine use: Yes Place of Residence: Home Review of Systems 10-point ROS is otherwise unremarkable Respiratory: Cough, Shortness of Breath, SOB with Excertion Genitourinary: Frequency Physical Examination - Physical Exam General: Alert, In no apparent distress, Oriented x3 HEENT: Atraumatic, PERRLA, Mucous membr. moist/pink, EOMI, Sclerae nonicteric Neck: Supple, 2+ carotid pulse no bruit, No LAD, Without JVD or thyroid abnormality Respiratory: Clear to auscultation bilaterally, Normal air movement Cardiovascular: Regular rate/rhythm, Normal S1 S2 Gastrointestinal: Normal bowel sounds, No tenderness Musculoskeletal: No tenderness Integumentary: No rashes Neurological: Normal speech, Normal strength at 5/5 x4 extr, Normal tone, Normal affect - Studies Laboratory Data (last 24 hrs) 03/23/23 15:15: PT 10.7, INR 0.97 03/23/23 15:15: WBC 12.90 H, Hgb 12.8, Hct 39.8, Plt Count 267 03/23/23 15:15: Sodium 130 L, Potassium 4.8, BUN 32 H, Creatinine 1.02, Glucose 270 H Microbiology Data (last 24 hrs): 03/23/23 15:15 Nasopharnyx Influenza Type A Antigen Screen - Final 03/23/23 15:15 Nasopharnyx Influenza Type B Antigen Screen - Final 03/23/23 15:15 Throat Group A Streptococcus Rapid Screen - Final Assessment and Plan - Plan Assessment: UTI Lactic acidosis Dyspnea/cough with underlying COPD Recent concern for temporal arteritisbiopsy negative Diabetes mellitus type 2insulin-dependent with hyperglycemia Hypertension Hyperlipidemia Hypothyroidism Plan: UTI Urinalysis borderline, patient does report urinary frequency over the course of the last 1 week or so. She was given Rocephin in ED, urine culture obtained as well as blood cultures will continue Rocephin. At this time only 1 out of 4 SIRS criteria present with leukocytosis which I also believe is related to her corticosteroid use rather than infection. No sepsis currently. Lactic acidosis I do not think this is from sepsis or septic shock. Possibly related to dehydration, corticosteroid use? We will give more IV fluids and recheck lactate today. She had not received nebulizer treatments or albuterol prior to lab draw for lactate. Dyspnea/cough with underlying COPD She feels much better after nebulizer treatment, as needed nebulizer treatments. As needed antitussives. Recent concern for temporal arteritisbiopsy negative Reviewed biopsy results, negative for temporal arteritis. We will hold off on steroids for now. Diabetes mellitus type 2insulin-dependent with hyperglycemia ACHS Accu-Chek, sliding scale insulin. Hypertension Hyperlipidemia Hypothyroidism Continue home medications. DVT PPX: Lovenox Code status: Full Discharge Plan: Home Plan to discharge in: 24 Hours - Advance Directives Does patient have a Living Will: Yes Does patient have a Durable POA for Healthcare: Yes - Code Status/Comfort Care Code Status Assessed: Yes (Full code) Critical Care: No Time Spent Managing Pts Care (In Minutes): 55
[2023-03-23] MEDS ORDERED: BENZONATATE 100 MG CAP PO PRN (19:31)
[2023-03-23] MEDS ORDERED: ONDANSETRON 4 MG/2 ML VIAL IV PRN (19:31)
[2023-03-23] MEDS ORDERED: ALBUTEROL 2.5 MG/3 ML NEB SOL NEB PRN (19:31)
[2023-03-23] MEDS ORDERED: ACETAMINOPHEN 500 MG TAB PO PRN (19:31)
[2023-03-23] MEDS ORDERED: GUAIFENESIN/CODEINE 5ML UCUP PO PRN (19:31)
[2023-03-23] MEDS: NA CHLORIDE 0.9% 1,000 ML IV SCH (20:00)
[2023-03-23 20:57] VITALS: O2SAT 98
[2023-03-23 22:08] VITALS: BMI 27.8
[2023-03-23] MEDS ORDERED: HYDROCODONE/APAP 5/325 MG TAB PO PRN (22:36)
[2023-03-24] MEDS: INSULIN -REGULAR HUMAN 50 UNIT/0.5 ML ML SQ SCH ×4 (00:34→16:02)
[2023-03-24] MEDS: INSULIN GLARGINE 100 UNIT/ML SQ SCH ×2 (00:37→08:25)
[2023-03-24 04:17] LABS: Absolute Lymphocytes (CBC) 1.4 K/uL (0.7-4.9); Hematocrit 35.2 % (36.0-45.0); Lymphocytes % 15.4 % (15.3-44.8); MCV 79.2 fL (80-100); MPV 8.6 fL (7.6-11.3); RBC Red Blood Cell Count 4.44 M/uL (3.86-4.86)
[2023-03-24 04:39] LABS: Thyroid Stimulating Hormone 0.221 uIU/mL (0.358-3.740)
[2023-03-24] MEDS: NA CHLORIDE 0.9% 1,000 ML IV SCH (06:00)
[2023-03-24] MEDS ORDERED: carBAMazepine 200 MG TAB PO SCH (09:00)
[2023-03-24] MEDS ORDERED: ENOXAPARIN 40 MG/0.4 ML SQ SCH (09:00)
[2023-03-24] MEDS ORDERED: carvediloL 6.25 MG TAB PO SCH (09:00)
[2023-03-24] MEDS ORDERED: LOSARTAN POTASSIUM 50 MG TABLET PO SCH (10:38)
[2023-03-24 13:02] LABS: Albumin 3.3 g/dL (3.4-5.0); Bilirubin Total 0.2 mg/dL (0.2-1.0); Magnesium 1.9 mg/dL (1.6-2.4); Potassium 3.7 mEq/L (3.5-5.1); Protein, Total 6.9 g/dL (6.4-8.2)
[2023-03-24 16:52] VITALS: BP 122/65; TEMP 98.2
[2023-03-24] MEDS ORDERED: CEFTRIAXONE 1,000 MG in NA CHLORIDE 0.9% 50 ML IVPB SCH (18:00)
[2023-03-24] MEDS ORDERED: DULOXETINE 20 MG CAP PO SCH (21:00)
[2023-03-25] MEDS ORDERED: PANTOPRAZOLE 40MG TABLET PO SCH (06:30)
[2023-03-25] MEDS ORDERED: LEVOTHYROXINE SOD 0.025 MG TAB PO SCH (06:30)
[2023-03-25] MEDS ORDERED: LEVOTHYROXINE SOD 0.112 MG TAB PO SCH (06:30)
[2023-03-25] MEDS ORDERED: HOME MED 1 EA UNK (Insulin Glargine,Hum.Rec.Anlog [Lantus Solostar] 100 UNIT/ML Insuln.Pen SQ SCH (09:00)
[2023-03-25] MEDS ORDERED: predniSONE 20 MG TAB PO SCH (09:00)
[2023-03-25] MEDS ORDERED: HOME MED 1 EA UNK (Levothyroxine Sodium [Tirosint] 37.5 MCG Capsule) PO SCH (09:00)
[2023-03-25] MEDS ORDERED: HOME MED 1 EA UNK (Omeprazole Magnesium [Prilosec Otc] 20 MG Tablet.Dr) PO SCH (09:00)
[2023-03-25] MEDS ORDERED: [UNRECOGNIZED DRUG - OTHER] PO SCH (09:00)
--- NOTE | 2023-03-27 07:16 | EKG ---
Test Date: 2023-03-23 Test Time: 15:41:49 Network Operations Center Engineer: CHANDA MEASUREMENT RESULTS: Intervals: Rate: 88 NM: 150 QRSD: 130 QT: 388 QTc: 469 Marcus: P: 64 NM: 150 QRS: 38 T: 58 INTERPRETIVE STATEMENTS: Normal sinus rhythm Right bundle branch block Abnormal ECG Compared to ECG 03/13/2023 21:15:38 No significant changes Electronically Signed On 03-27-23 07:07:56 CDT by Bakari Gonzalez
== END 2023-03-24 17:02 | disposition home or self-care (01) ==
LOC: ER 13:59 → ERHOLD 19:09 → 4TH 20:34
PROVIDERS: ADMIT Hospitalist; ATTEND Hospitalist
DX: N39.0 Urinary tract infection, site not specified (principal); E87.20 Acidosis, unspecified; R06.00 Dyspnea, unspecified; R05.9 Cough, unspecified; J44.9 Chronic obstructive pulmonary disease, unspecified; E11.65 Type 2 diabetes mellitus with hyperglycemia; I10 Essential (primary) hypertension; E78.5 Hyperlipidemia, unspecified; E03.9 Hypothyroidism, unspecified; Z20.822 Contact with and (suspected) exposure to COVID-19
CPT/HCPCS: 93005; 87040 ×2; 87070; 87088; 85025 ×2; 81001; 87086; 80048 ×2; 36415; 83735; 85610; 82947 ×4; 87081; 83605 ×5; 84443; 84484; 84439; 82607; 80053; 83880; 87804 ×2; 71275; 71045; 96374; 99285; 87811; Q9967; J1815; J7614; J1650; J2250; J2405; J7040; J7030 ×2; J0696; G0378 ×4

== ENCOUNTER 2023-06-03 14:22 | Emergency (ER) | payer OTHER ==
--- OUTSIDE RECORDS SUMMARY | 2023-06-03 14:57 | XMS REPORT | Continuity of Care Document ---
:1945 Author Organization [facility] t Address [address] [facility] [address] [place] [id number] Care Team Providers Name Role Phone KENA SAWANT Primary Care Physician Unavailable DEBO COY Attending Clinician Unavailable Debo Coy MD Attending Clinician Spike Hand Attending Clinician [facility] Attending Clinician Unavailable José Miguel Bang MD Attending Clinician JOSÉ MIGUEL BANG Attending Clinician Unavailable Pob, [facility] Main Attending Clinician Unavailable Chitra Henry MD Attending Clinician CHITRA HENRY Attending Clinician Unavailable Doctor Unassigned, [place] Attending Clinician Unavailable BISHNU WRIGHT Attending Clinician Unavailable BISHNU WRIGHT Attending Clinician Unavailable Nurse, [facility] Attending Clinician Unavailable Unknown, Attending Attending Clinician Unavailable BIBI AGOSTO Attending Clinician Unavailable Pcp, Patient Does Not Have A Attending Clinician [phone]- [phone] Britt Bolton Attending Clinician BRITT CASTRO Attending Clinician Unavailable Agusto Salas Attending Clinician Ksihor Adams MD Attending Clinician KISHOR ADAMS Attending Clinician Unavailable QUINTON WILSON Attending Clinician Unavailable Quinton James Attending Clinician Kena Sawant Attending Clinician TING LOVELACE Attending Clinician Unavailable Radu WEB SITE DEVELOPER, Ting Attending Clinician Sona Jackson RN Attending Clinician Unavailable MICHAEL POTTER Attending Clinician Unavailable Michael Potter MD Attending Clinician Rashad Delgado MD Attending Clinician LIBERTY YEPEZ Attending Clinician Unavailable Mario KAPLAN, [place] Attending Clinician Jorge Ly Attending Clinician ROMA MAYA Attending Clinician Unavailable IRAM MANJARREZ Attending Clinician Unavailable IRAM MANJARREZ Attending Clinician Unavailable DIEGO ALVARADO Attending Clinician Unavailable PAUL BROWN Attending Clinician Unavailable WILLIAM CRANDALL Admitting Clinician Unavailable QUINTON WILSON Admitting Clinician Unavailable RASHAD DELGADO Admitting Clinician Unavailable Rashad Delgado MD Admitting Clinician DIEGO ALVARADO Admitting Clinician Unavailable PAUL BROWN Admitting Clinician Unavailable Payers Payer Name Policy Type Policy Number Effective Date Expiration Date Benjamin DÍAZ [facility] [id number] 2022 HMO 00:00:00 [employer] MEDICARE ADV [id number] 2019 00:00:00 Problems Condition Condition Condition Status Onset Resolution Last Treating Co mments Source Name Details Category Date Date Treatment Clinician Date Recurrent Recurrent Disease Active Uni vers UTI UTI 8-31 ity of 00:: [address] Acute Acute Disease Active Univers exacerbati exacerbati 6-13 it y of on of on of :: [place] chronic chronic [address] [place] [address] low back low back Branch pain pain Exertional Exertional Disease Active 2020- U nivers chest pain chest pain 1-23 it y of 00:: [address] ANDRADE ANDRADE Disease Active 2020- Univers (dyspnea (dyspnea 1-23 ity of on on 00:00: [place] exertion) exertion) 00 [facility] Essential Essential Disease Active Uni vers hypertensi hypertensi 1-23 it y of on on 00:: [address] Branch Type 2 Type 2 Disease Active 2020- Univers diabetes diabetes 1- ity of mellitus mellitus 00:00: [place] without without 00 Medical complicati complicati Br anch on on Abnormal Abnormal Disease Active Unive rs ECG ECG 11-19 ity of 00:00: [place] 00 Medical Branch History of History of Disease Active U nivers anemia anemia 11-19 ity of 00:00: [place] 00 Medical Branch Rotator Rotator Disease Active [facility] cuff tear cuff tear -24 [facility] 00:[facility]: Medical 00 Center Impingemen Impingemen Disease Active [facility] -24 [facility] syndrome, syndrome, 00:[facility]: [facility] shoulder shoulder 00 Center 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 24 [facility] arthrosis arthrosis 00:00: [facility] 00 Center Infection Infection Disease Active [facility] 00:[facility]: Medical 00 [place] Leg pain Leg pain Disease Active [facility] 00 Center Hypertensi Hypertensi Disease Active [facility] on 6-15 [facility] 00:[facility] 00 Center Hypothyroi Hypothyroi Disease Active [facility] dism dism 6-15 [facility] 00:00: Medical 00 [place] OAB OAB Disease Active [facility] (overactiv (overactiv 6-15 Debra kes e bladder) e bladder) 00:00: Me dical 00 Center Infection Infection Disease Recurre [facility] associated associated nce 6-15 [facility]bra k[facility] with with 00:00: Medical internal internal 00 Center knee knee prosthesis prosthesis NECK PAIN NECK PAIN Diagnosis Active 2013-08-28 Memoria Active 06-16 07:21:00 l 06/16/2013 00:00: Slava maza [facility] 00 [place] 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 [facility] Gastroesop Gastroeso Problem Resolve 2022-06-11 Elviaoria hageal phageal d 02:57:37 l reflux reflux Adam disease disease (disorder) (disorder) Resolved Problem 06/11/2022 [facility] Mixed Mixed Problem Resolve 2022-06-11 Yariel mariza anxiety anxiety d 02:57:37 l and and [place] depressive depressive disorder disorder (disorder) (disorder) Resolved Problem 06/11/2022 [facility] Asthma Asthma Problem Resolve 2022-06-11 Mem oria (disorder) (disorder) d 02:57:37 l Resolved Adam [facility] Chronic Chronic Problem Resolve 2022-06-11 M emoria obstructiv obstructiv d 02:57:37 l e lung e lung Adam disease disease (disorder) (disorder) Resolved Problem 06/11/2022 [facility] Emphysema Emphysema Problem Resolve 2022-06-11 Memoria (morpholog (morpholog d 02:57:37 l ic ic [place] abnormalit abnormalit y) y) Resolved Problem 06/11/2022 [facility] Neck pain Neck pain Problem Resolve 2022-06-11 Memoria (finding) (finding) d 02:57:37 l Resolved Adam Problem 06/11/2022 [facility] Shock Shock Problem Resolve 2022-06-11 Yariel mariza (disorder) (disorder) d 02:57:37 l Resolved Adam Problem 06/11/2022 [facility] Disease of Disease Problem Resolve 2022-06-11 Memoria urinary of urinary d 02:57:37 l tract tract [place] (disorder) (disorder) Resolved Problem 06/11/2022 [facility] Weakness Weakness Problem Resolve 2022-06-11 Memoria of of d 02:57:37 l limb(Confi limb(Confi He rmann rmed) rmed) Resolved Problem 06/11/2022 [facility] Acid Acid Problem Resolve 2013-07-24 Yarile mariza reflux reflux d 20:21:07 l Resolved [place] Problem 07/24/2013 [facility] Anxiety Anxiety Problem Resolve 2013-07-24 M emoria depression depression d 20:21:07 l Resolved Adam Problem 07/24/2013 [facility] COPD COPD Problem Resolve 2013-07-24 Yariel mariza Resolved d 20:21:07 l Problem Adam 07/24/2013 [facility] Emphysema Emphysema Problem Resolve 2013-07-24 Memoria Resolved d 20:21:07 l Problem [place] 07/24/2013 [facility] High High Problem Resolve 2013-07-24 Yariel mariza cholestero cholestero d 20:21:07 l l l Resolved Slava n Problem 07/24/2013 [facility] Hypertensi Hypertens Problem Resolve 2013-07-24 Memoria on ion d 20:21:07 l Resolved Adam Problem 07/24/2013 [facility] Neck pain Neck pain Problem Resolve 2013-07-24 Memoria Resolved d 20:21:07 l Problem [place] 07/24/2013 [facility] Poor Poor Problem Resolve 2013-07-24 Yariel mariza circulatio circulatio d 20:21:07 l n n Resolved Slava n Problem 07/24/2013 [facility] Urinary Urinary Problem Resolve 2013-07-24 emoria disorder disorder d 20:21:07 l Resolved [place] Problem 07/24/2013 [facility] Weakness Weakness Problem Resolve 2013-07-24 Memoria of limb of limb d 20:21:07 l Resolved Adam Problem 07/24/2013 [facility] 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 Herm billie (disorder) (disorder) Active Problem 06/11/2022 [facility] Pure Pure Problem Active 2022-06-11 Memor ia hyperchole hyperchole 02:57:37 l sterolemia sterolemia He rmann (disorder) (disorder) Active Problem 06/11/2022 [facility] Neuralgia Neuralgia Problem Active 2022-06-11 [facility] (disorder) (disorder) 02:57:37 l Active Adam Problem 06/11/2022 [facility] Paresthesi Paresthes Problem [...] mellitus 02:57:37 l type 2 type 2 Adam (disorder) (disorder) Active Problem 06/11/2022 [facility] Amnesia Amnesia Problem Active 2022-06-11 Me moria (finding) (finding) 02:57:37 l Active Adam Problem 06/11/2022 [facility] Headache Headache Problem Active 2022-06-11 Memoria (finding) (finding) 02:57:37 l Active [place] Problem 06/11/2022 [facility] CERVICAL CERVICAL Diagnosis Active 2013-08-28 [facility] SPINAL SPINAL 07:21:00 l STENOSIS STENOSIS Slava n Active [facility] CERV DISC CERV DISC Diagnosis Active 2013-08-28 [facility] DIS W DIS W 07:21:00 l MYELOPAT MYELOPAT Slava n Active [facility] Allergies, Adverse Reactions, Alerts Allergy Allergy Status Severity Reaction(s) Onset Inactive Treating Comm ents Source Name Type Date Date Clinician Morphine Drug Active Other (See CONFUSION [facility] Allergy Comments) 04-11 [facility] hallucina [facility] MORPHINE DRUG Active [place] Hallucinates Un [place] INGREDI 04-11 ity of 00:00: [address] Morphine Propensi Active Hallucinatio CONFUSI ON Univers ty to ns 04-11 / ity of adverse 00:00: hallucina [place] reaction 00 tionCONFU Medic al s STORMY / Branch hallucina tionCONFU SIONCONFU STORMY / hallucina tion Morphine Morphine Active Memori a Sulfate Sulfate l [place] Social History Social Habit Start Date Stop Date Quantity Comments Source Gender identity [facility] o f Alcohol Std Drinks [facility] History [facility] University o f Alcohol Binge [place] Medic al Branch History [facility] o f Alcohol Comment [place] Med ical Branch History of tobacco Cigarette Smoker University of use [facility] History of Social 2023-05-01 2023-05-01 Univers ity of function 00:00:00 00:00:00 [facility] Exposure to 2023-03-13 2023-03-23 Not sure University SARS-CoV-2 (event) 00:00:00 13:02:00 [facility] Tobacco use and 2022-05-26 2022-05-26 Smokeless Universit y of exposure 00:00:00 00:00:00 tobacco non-user [facility] [place] [facility] dical Branch History SDOH 2022-04-09 2022-04-09 1 University o f Alcohol Frequency 00:00:00 00:00:00 [facility] edical Branch Social History 2021-08-15 2021-08-15 [facility] hardeepbillie 20:38:18 20:38:18 Alcohol intake 2018-03-20 2018-03-[address] [facility] 00:00:00 00:00:00 non-drinker of Medical Ce nter alcohol (finding) Tobacco Comment 2018-03-12 2018-03-[address] [facility] 00:[facility] Sex Assigned At [address] [facility] 00:00:00 00:00:00 [facility] Center Smoking Status Start Date Stop Date Source Ex-smoker 2022-05-26 00:00:00 2022-05-26 00:00:00 [facility] Medications Ordered Filled Start Stop Current Ordering Indication Dosage Frequency Signature Comments Components Source Medication Medication Date Date Medication? Clinician (SIG) Name Name methenamine Yes [id number] 1g Take 1 Univers 1 gram 7-05 tablet by ity of tablet 00:00: mouth in [place] [address] the Medical morning Branch and 1 tablet in the evening. Take with meals. nystatin 2022- Yes [id number] Apply to [place] [address] [facility] area(s) 2 ity of unit/gram 00:00: (two) [place] powder 00 times Medical daily. Branch methenamine 2022- Yes [id number] 1g Take 1 Univers 1 gram 7-05 tablet by ity of tablet 00:00: mouth in [address] Medical morning [place] and 1 tablet in the evening. Take with meals. nystatin 2022-0 Yes [id number] [facility] area(s) 2 ity of unit/gram 00:00: (two) [place] powder 00 times Medical daily. Branch methenamine 2022- Yes [id number] 1g Take 1 Univers 1 gram 7-05 tablet by ity of tablet 00:00: mouth in [place] [address] the Medical morning [place] and 1 tablet in the evening. Take with meals. nystatin 2022-0 Yes [id number] [facility] 7-05 area(s) 2 ity of unit/gram 00:00: (two) [place] powder 00 times Medical daily. Branch methenamine 2022-0 Yes [id number] 1g Take 1 Univers 1 gram 7-05 tablet by ity of tablet 00:00: mouth in [place] 00 the Medical morning Branch and 1 tablet in the evening. Take with meals. nystatin 2022-0 Yes [id number] Apply to [facility] 100,000 7-05 area(s) 2 ity of unit/gram 00:00: (two) [place] powder 00 times Medical daily. Branch methenamine 2022-0 Yes [id number] 1g Take 1 Univers 1 gram 7-05 tablet by ity of tablet 00:00: mouth in [place] 00 the Medical morning Branch and 1 tablet in the evening. Take with meals. nystatin 2022-0 Yes [id number] Apply to [facility] 100,000 7-05 area(s) 2 ity of unit/gram 00:00: (two) [place] powder 00 times Medical daily. Branch estradioL 0 Yes [id number] Apply 1g Univers (ESTRACE) 5-01 vaginally ity o f 0.01 % (0.1 00:00: at bedtime [place] mg/gram) 00 every Medical vaginal night for Branch cream 4 weeks estradioL 2022-0 Yes [id number] Apply 1g Univers (ESTRACE) 5-01 vaginally ity o f 0.01 % (0.1 00:00: at bedtime [place] mg/gram) 00 every Medical vaginal night for Branch cream 4 weeks estradioL 2022-0 Yes [id number] Apply 1g Univers (ESTRACE) 5-01 vaginally ity o f 0.01 % (0.1 00:00: at bedtime [place] mg/gram) 00 every Medical vaginal night for Branch cream 4 weeks estradioL 2022-0 Yes [id number] Apply 1g Univers (ESTRACE) 5-01 vaginally ity o f 0.01 % (0.1 00:00: at bedtime [place] mg/gram) 00 every Medical vaginal night for Branch cream 4 weeks estradioL 2022-0 Yes [id number] Apply 1g Univers (ESTRACE) 5-01 vaginally ity o f 0.01 % (0.1 00:00: at bedtime [place] mg/gram) 00 every Medical vaginal night for Branch cream 4 weeks estradioL 2022-0 Yes [id number] Apply 1g Univers (ESTRACE) 5-01 vaginally ity o f 0.01 % (0.1 00:00: at bedtime [place] mg/gram) 00 every Medical vaginal night for Branch cream 4 weeks estradioL 2022-0 Yes [id number] Apply 1g Univers (ESTRACE) 5-01 vaginally ity o f 0.01 % (0.1 00:00: at bedtime [place] mg/gram) 00 every Medical vaginal night for Branch cream 4 weeks estradioL 2022-0 Yes [id number] Apply 1g Univers (ESTRACE) 5-01 vaginally ity o f 0.01 % (0.1 00:00: at bedtime [place] mg/gram) 00 every Medical vaginal night for Branch cream 4 weeks estradioL 2022-0 Yes [id number] Apply 1g Univers (ESTRACE) 5-01 vaginally ity o f 0.01 % (0.1 00:00: at bedtime [place] mg/gram) 00 every Medical vaginal night for Branch cream 4 weeks estradioL 2022-0 Yes [id number] Apply 1g Univers (ESTRACE) 5-01 vaginally ity o f 0.01 % (0.1 00:00: at bedtime [place] mg/gram) 00 every Medical vaginal night for Branch cream 4 weeks estradioL 2022-0 Yes [id number] Apply 1g Univers (ESTRACE) 5-01 vaginally ity o f 0.01 % (0.1 00:00: at bedtime [place] mg/gram) 00 every Medical vaginal night for Branch cream 4 weeks estradioL 2022-0 Yes [id number] Apply 1g Univers (ESTRACE) 5-01 vaginally ity o f 0.01 % (0.1 00:00: at bedtime [place] mg/gram) 00 every Medical vaginal night for Branch cream 4 weeks losartan-hy 2022-0 Yes 1{tbl} Take 1 Un [...] daily. [place] ORAL) 43 Medical Branch losartan-hy 2023-0 Yes 1{tbl} Take 1 Un oseas drochloroth [...] daily. [place] ORAL) 43 Medical Branch methenamine 3-0 Yes 1g Take 1 Univers 1 gram 4-12 tablet by ity of tablet 00:00: mouth in [place] [address] the Medical morning Branch and 1 tablet in the evening. Take with meals. methenamine 2023-0 Yes 1g Take 1 Univers 1 gram 4-12 tablet by ity of tablet 00:00: mouth in [place] [address] the Medical morning Branch and 1 tablet in the evening. Take with meals. methenamine 2023-0 Yes 1g Take 1 Univers 1 gram 4-12 tablet by ity of tablet 00:00: mouth in [place] [address] the Medical morning Branch and 1 tablet in the evening. Take with meals. methenamine 2023-0 Yes 1g Take 1 Univers 1 gram 4-12 tablet by ity of tablet 00:00: mouth in [place] [address] the Medical morning [place] and 1 tablet in the evening. Take with meals. methenamine 2023-0 Yes 1g Take 1 Univers 1 gram 4-12 tablet by ity of tablet 00:00: mouth in [place] [address] the Medical morning Branch and 1 tablet in the evening. Take with meals. methenamine 2023-0 Yes 1g Take 1 Univers 1 gram 4-12 tablet by ity of tablet 00:00: mouth in [place] [address] the Medical morning [place] and 1 tablet in the evening. Take with meals. methenamine 2023-0 Yes 1g Take 1 Univers 1 gram 4-12 tablet by ity of tablet 00:00: mouth in [place] [address] the Medical morning [place] and 1 tablet in the evening. Take with meals. methenamine 2023-0 Yes 1g Take 1 Univers 1 gram 4-12 tablet by ity of tablet 00:00: mouth in [place] [address] the Medical morning [place] and 1 tablet in the evening. Take with meals. methenamine 2023-0 Yes 1g Take 1 Univers 1 gram 4-12 tablet by ity of tablet 00:00: mouth in [place] [address] the [facility] morning [place] and 1 tablet in the evening. Take with meals. methenamine 2023-0 Yes 1g Take 1 Univers 1 gram 4-12 tablet by ity of tablet 00:00: mouth in [address] morning [place] and 1 tablet in the evening. Take with meals. methenamine 2023-0 Yes 1g Take 1 Univers 1 gram 4-12 tablet by ity of tablet 00:00: mouth in [address] morning [place] and 1 tablet in the evening. Take with meals. methenamine 2023-0 Yes 1g Take 1 Univers 1 gram 4-12 tablet by ity of tablet 00:00: mouth in [place] [address] the [facility] morning [place] and 1 tablet in the evening. Take with meals. methenamine 2023-0 Yes 1g Take 1 Univers 1 gram 4-12 tablet by ity of tablet 00:00: mouth in [address] morning [place] and 1 tablet in the evening. Take with meals. methenamine 2023-0 Yes 1g Take 1 Univers 1 gram 4-12 tablet by ity of tablet 00:00: mouth in [address] morning [place] and 1 tablet in the evening. Take with meals. methenamine 2023-0 Yes 1g Take 1 Univers 1 gram 4-12 tablet by ity of tablet 00:00: mouth in [address] morning [place] and 1 tablet in the evening. Take with meals. methenamine 2022-0 Yes [id number] 1g Take 1 Univers 1 gram 4-12 tablet by ity of tablet 00:00: mouth in [place] 00 the Medical morning Branch and 1 tablet in the evening. Take with meals. methenamine 0 2022- No [id number] 1g Take 1 Univers 1 gram 4-12 07-05 tablet by ity of tablet 00:00: 00:00 mouth in [place] 00 :00 the Medical morning Branch and 1 tablet in the evening. Take with meals. methylpredn 2022- No [id number] 125mg Univers isolone sod 01-11 ity of succ 00:30: 23:30 [place] (SOLU-MEDRO 00 :00 Medical ) Branch injection 125 mg methylpredn 2022- No [id number] 125mg 125 mg, Univers isolone sod 01-11 Intramuscu i ty of succ 00:30: 23:30 lar, ONCE, [place] (SOLU-MEDRO 00 :00 1 dose, On Or dical L) [facility] Branch injection 01/10/23 at 125 mg 1930, Routine albuterol 2022- No [id number] 2{puff} Univers (VENTOLIN) 01-11 ity of inhaler 2 00:15: 23:31 [place] Puff 00 :[address] [facility] albuterol 2022- No [id number] 2{puff} 2 Puff, Univers (VENTOLIN) 01-1116 Inhalation it y of inhaler 2 00:15: 23:31 , [place]CE, [place] Puff [place] :[place] dose, On Medical [facility] Branch 01/10/23 at 1915, Routine azithromyci 0 Yes [id number] 250mg Take 1 Univers n 250 mg 3-16 tablet by ity of tablet 00:00: mouth in [place] 00 the Medical morning. Branch azithromyci 0 Yes [id number] 250mg Take 1 Univers n 250 mg 3-16 tablet by ity of tablet 00:00: mouth in [place] 00 the Medical morning. Branch azithromyci 0 Yes [id number] 250mg Take 1 Univers n 250 mg 3-16 tablet by ity of tablet 00:00: mouth in [place] 00 the Medical morning. Branch azithromyci 2022-0 2022- No [id number] 250mg Take 1 Univers n 250 mg 3-16 -12 tablet by ity o f tablet 00:00: 00:00 mouth in [place] 00 :00 the Medical morning. Branch azithromyci 2022-0 2022- No [id number] 250mg Take 1 Univers n 250 mg 3-16 -12 tablet by ity o f tablet 00:00: 00:00 mouth in [place] 00 :00 the Medical morning. Branch azithromyci 2022-0 2022- No [id number] 250mg Take 1 Univers n 250 mg 3-16 -12 tablet by ity o f tablet 00:00: 00:00 mouth in [place] 00 :00 the Medical morning. Branch methenamine 2023-0 Yes [id number] 1g Take 1 Univers 1 gram 3-01 tablet by ity of tablet 00:00: mouth in [place] 00 the [facility] morning Branch and 1 tablet in the evening. Take with meals. methenamine 2023-0 Yes 1g Take 1 Univers 1 gram 3-01 tablet by ity of tablet 00:00: mouth in [place] 00 the Medical morning Branch and 1 tablet in the evening. Take with meals. methenamine 2023-0 Yes 1g Take 1 Univers 1 gram 3-01 tablet by ity of tablet 00:00: mouth in [place] 00 the [facility] morning Branch and 1 tablet in the evening. Take with meals. methenamine 2023-0 Yes 1g Take 1 Univers 1 gram 3-01 tablet by ity of tablet 00:00: mouth in [place] 00 the Medical morning Branch and 1 tablet in the evening. Take with meals. methenamine 2023-0 2022- No [id number] 1g Take 1 Univers 1 gram 3-01 04-12 tablet by ity of tablet 00:00: 00:00 mouth in [place] 00 :00 the [facility] morning Branch and 1 tablet in the evening. Take with meals. methenamine 2023-0 2022- No [id number] 1g Take 1 Univers 1 gram 3-01 04-12 tablet by ity of tablet 00:00: 00:00 mouth in [place] 00 :00 the [facility] morning [place] and 1 tablet in the evening. Take with meals. methenamine 2023-0 2022- No [id number] 1g Take 1 Univers 1 gram 3-01 04-12 tablet by ity of tablet 00:00: 00:00 mouth in [place] 00 :00 the Medical morning Branch and 1 tablet in the evening. Take with meals. methenamine 2021-10 Yes 1g Take 1 Univers 1 gram 1-02 tablet by ity of tablet 00:00: mouth in [place] 00 the Medical morning Branch and 1 tablet in the evening. Take with meals. methenamine 2021-10 Yes 1g Take 1 Univers 1 gram 1-02 tablet by ity of tablet 00:00: mouth in [place] 00 the Medical morning Branch and 1 tablet in the evening. Take with meals. methenamine 2021-10 Yes 1g Take 1 Univers 1 gram 1-02 tablet by ity of tablet 00:00: mouth in [place] 00 the Medical morning Branch and 1 tablet in the evening. Take with meals. methenamine 2021-10 Yes 1g Take 1 Univers 1 gram 1-02 tablet by ity of tablet 00:00: mouth in [place] 00 the Medical morning Branch and 1 tablet in the evening. Take with meals. methenamine 2021-10- No [id number] 1g Take 1 Univers 1 gram 1-02 03-01 tablet by ity of tablet 00:00: 00:00 mouth in [place] 00 :00 the Medical morning Branch and 1 tablet in the evening. Take with meals. pneumococca 2021-10- No [id number] .5mL 0.5 mL by Univers l vac 10-29 Intramuscu ity of polyvalent 00:00: 00:00 [place] route [place] 25 mcg/0.5 00 :00 once now Medic al mL for 1 Branch injection dose. pneumococca 2021-10- No [id number] .5mL 0.5 mL by Univers l vac 10-29 Intramuscu ity of polyvalent 00:00: 00:00 lar route [place] 25 mcg/0.5 00 :00 once now Medic al mL for 1 Branch injection dose. pneumococca 2021-10- No [id number] .5mL 0.5 mL by Univers l vac 10-29 Intramuscu ity of polyvalent 00:00: 00:00 lar route [place] 25 mcg/0.5 00 :00 once now Medic al mL for 1 Branch injection dose. methenamine No [id number] 1g Take 1 Univers 1 gram 07-04- tablet by ity of tablet 00:00: 05:59 mouth in [place] 00 :00 the [facility] and 1 tablet in the evening. Take with meals. Do all this for 60 days. methenamine No 1g Take 1 Univers 1 gram 07-04- tablet by ity of tablet 00:00: 05:59 mouth in [place] 00 :00 the [facility] and 1 tablet in the evening. Take with meals. Do all this for 60 days. methenamine No 1g Take 1 [facility] 1 gram 07-04- tablet by ity of tablet 00:00: 05:59 mouth in [place] 00 :00 the [facility] and 1 tablet in the evening. Take with meals. Do all this for 60 days. methenamine No 1g Take 1 [facility] 1 gram 07-04 tablet by ity of tablet 00:00: 05:59 mouth in [place] 00 :00 the [facility] and 1 tablet in the evening. Take with meals. Do all this for 60 days. methenamine No [id number] 1g Take 1 [facility] 1 gram 07-04 tablet by ity of tablet 00:00: 00:00 mouth in [place] 00 :00 the [facility] and 1 tablet in the evening. Take with meals. Do all this for 60 days. methenamine No [id number] 1g Take 1 [facility] 1 gram 07-04- tablet by ity of tablet 00:00: 00:00 mouth in [place] 00 :00 the [facility] and 1 tablet in the evening. Take with meals. Do all this for 60 days. methenamine No [id number] 1g Take 1 [facility] 1 gram 07-04 tablet by ity of tablet 00:00: 00:00 mouth in [place] 00 :00 the [facility] and 1 tablet in the evening. Take with meals. Do all this for 60 days. amoxicillin 2021- No [id number] 1{tbl} Take 1 [facility] -clavulanat 8-04 08-15 tablet by it y of e 00:00: 04:59 mouth in [place] (AUGMENTIN) 00 :00 the Medical 875-125 mg [...] [place] ORAL) 43 Medical Branch fluticasone Yes [id number] 1{puff} Inhale 1 [facility] propion-brittney 6-14 Puff every it y of meteroL 00:00: 12 [place] (ADVAIR 00 (twelve) Medical DISKUS) hours. Branch 250-50 mcg/dose inhalation disk fluticasone Yes [id number] 1{puff} Inhale 1 [facility] propion-brittney 6-14 Puff every it y of meteroL 00:00: 12 [place] (ADVAIR 00 (twelve) Medical DISKUS) hours. Branch 250-50 mcg/dose inhalation disk fluticasone Yes [id number] 1{puff} Inhale 1 [facility] propion-brittney 6-14 Puff every it y of meteroL 00:00: 12 [place] (ADVAIR 00 (twelve) Medical DISKUS) hours. Branch 250-50 mcg/dose inhalation disk fluticasone Yes [id number] 1{puff} Inhale 1 [facility] propion-brittney 6-14 Puff every it y of meteroL 00:00: 12 [place] (ADVAIR (twelve) Medical DISKUS) hours. Branch 250-50 mcg/dose inhalation disk fluticasone 2022-0 Yes [id number] 1{puff} Inhale 1 [facility] propion-brittney 6-14 Puff every it y of meteroL 00:00: 12 [place] (ADVAIR 00 (twelve) Medical DISKUS) hours. Branch 250-50 mcg/dose inhalation disk fluticasone 2022-0 Yes [id number] 1{puff} Inhale 1 [facility] propion-brittney 6-14 Puff every it y of meteroL 00:00: 12 [place] (ADVAIR (twelve) Medical DISKUS) hours. Branch 250-50 mcg/dose inhalation disk fluticasone 2022-0 Yes [id number] 1{puff} Inhale 1 [facility] propion-brittney 6-14 Puff every it y of meteroL 00:00: 12 [place] (ADVAIR () Medical DISKUS) hours. Branch 250-50 mcg/dose inhalation disk fluticasone 2022-0 Yes [id number] 1{puff} Inhale 1 [facility] propion-brittney 6-14 Puff every it y of meteroL 00:00: 12 [place] (ADVAIR () Medical DISKUS) hours. Branch 250-50 mcg/dose inhalation disk fluticasone 2022-0 Yes [id number] 1{puff} Inhale 1 [facility] propion-brittney 6-14 Puff every it y of meteroL 00:00: 12 [place] (ADVAIR () Medical DISKUS) hours. Branch 250-50 mcg/dose inhalation disk fluticasone 2022-0 Yes [id number] 1{puff} Inhale 1 [facility] propion-brittney 6-14 Puff every it y of meteroL 00:00: 12 [place] (ADVAIR (twelve) Medical DISKUS) hours. Branch 250-50 mcg/dose inhalation disk fluticasone 2022-0 Yes [id number] 1{puff} Inhale 1 [facility] propion-brittney 6-14 Puff every it y of meteroL 00:00: 12 [place] (ADVAIR (twelve) Medical DISKUS) hours. Branch 250-50 mcg/dose inhalation disk fluticasone 2022-0 Yes [id number] 1{puff} Inhale 1 [facility] propion-brittney 6-14 Puff every it y of meteroL 00:00: 12 [place] (ADVAIR ) Medical DISKUS) hours. Branch 250-50 mcg/dose inhalation disk fluticasone 2022-0 Yes [id number] 1{puff} Inhale 1 [facility] propion-brittney 6-14 Puff every it y of meteroL 00:00: 12 [place] (ADVAIR ) Medical DISKUS) hours. Branch 250-50 mcg/dose inhalation disk fluticasone 2-0 Yes [id number] 1{puff} Inhale 1 [facility] propion-brittney 6-14 Puff every it y of meteroL 00:00: 12 [place] (ADVAIR ) Medical DISKUS) hours. Branch 250-50 mcg/dose inhalation disk fluticasone 2-0 Yes [id number] 1{puff} Inhale 1 [facility] propion-brittney 6-14 Puff every it y of meteroL 00:00: 12 [place] (ADVAIR ) Medical DISKUS) hours. Branch 250-50 mcg/dose inhalation disk fluticasone 2-0 Yes [id number] 1{puff} Inhale 1 [facility] propion-brittney 6-14 Puff every it y of meteroL 00:00: 12 [place] (ADVAIR ) Medical DISKUS) hours. Branch 250-50 mcg/dose inhalation disk fluticasone 2-0 Yes [id number] 1{puff} Inhale 1 [facility] propion-brittney 6-14 Puff every it y of meteroL 00:00: 12 [place] (ADVAIR ) Medical DISKUS) hours. Branch 250-50 mcg/dose inhalation disk fluticasone 2-0 Yes [id number] 1{puff} Inhale 1 [facility] propion-brittney 6-14 Puff every it y of meteroL 00:00: 12 [place] (ADVAIR ) Medical DISKUS) hours. Branch 250-50 mcg/dose inhalation disk fluticasone 2022-0 Yes [id number] 1{puff} Inhale 1 [facility] propion-brittney 6-14 Puff every it y of meteroL 00:00: 12 [place] (ADVAIR ) Medical DISKUS) hours. Branch 250-50 mcg/dose inhalation disk fluticasone 2022-0 Yes [id number] 1{puff} Inhale 1 [facility] propion-brittney 6-14 Puff every it y of meteroL 00:00: 12 [place] (ADVAIR () Medical DISKUS) hours. Branch 250-50 mcg/dose inhalation disk fluticasone 2022-0 Yes [id number] 1{puff} Inhale 1 [facility] propion-brittney 6-14 Puff every it y of meteroL 00:00: 12 [place] (ADVAIR () Medical DISKUS) hours. Branch 250-50 mcg/dose inhalation disk fluticasone 2022-0 Yes [id number] 1{puff} Inhale 1 [facility] propion-brittney 6-14 Puff every it y of meteroL 00:00: 12 [place] (ADVAIR () Medical DISKUS) hours. Branch 250-50 mcg/dose inhalation disk fluticasone 2022-0 Yes [id number] 1{puff} Inhale 1 [facility] propion-brittney 6-14 Puff every it y of meteroL 00:00: 12 [place] (ADVAIR () Medical DISKUS) hours. Branch 250-50 mcg/dose inhalation disk fluticasone 2022-0 Yes [id number] 1{puff} Inhale 1 [facility] propion-brittney 6-14 Puff every it y of meteroL 00:00: 12 [place] (ADVAIR () Medical DISKUS) hours. Branch 250-50 mcg/dose inhalation disk fluticasone 2022-0 Yes [id number] 1{puff} Inhale 1 [facility] propion-brittney 6-14 Puff every it y of meteroL 00:00: 12 [place] (ADVAIR () Medical DISKUS) hours. Branch 250-50 mcg/dose inhalation disk fluticasone 2022-0 Yes [id number] 1{puff} Inhale 1 [facility] propion-brittney 6-14 Puff every it y of meteroL 00:00: 12 [place] (ADVAIR () Medical DISKUS) hours. Branch 250-50 mcg/dose inhalation disk fluticasone 2022-0 Yes [id number] 1{puff} Inhale 1 [facility] propion-brittney 6-14 Puff every it y of meteroL 00:00: 12 [place] (ADVAIR 00 (twelve) Medical DISKUS) hours. Branch 250-50 mcg/dose inhalation disk fluticasone 2022-0 Yes [id number] 1{puff} Inhale 1 [facility] propion-brittney 6-14 Puff every it y of meteroL 00:00: 12 [place] (ADVAIR 00 (twelve) Medical DISKUS) hours. Branch 250-50 mcg/dose inhalation disk fluticasone 2022-0 Yes [id number] 1{puff} Inhale 1 [facility] propion-brittney 6-14 Puff every it y of meteroL 00:00: 12 [place] (ADVAIR 00 (twelve) Medical DISKUS) hours. Branch 250-50 mcg/dose inhalation disk fluticasone 2022-0 Yes [id number] 1{puff} Inhale 1 [facility] propion-brittney 6-14 Puff every it y of meteroL 00:00: 12 [place] (ADVAIR 00 (twelve) Medical DISKUS) hours. Branch 250-50 mcg/dose inhalation disk fluticasone 2022-0 Yes [id number] 1{puff} Inhale 1 [facility] propion-brittney 6-14 Puff every it y of meteroL 00:00: 12 [place] (ADVAIR (twelve) Medical DISKUS) hours. Branch 250-50 mcg/dose inhalation disk fluticasone 2022-0 Yes [id number] 1{puff} Inhale 1 [facility] propion-brittney 6-14 Puff every it y of meteroL 00:00: 12 [place] (ADVAIR 00 (twelve) Medical DISKUS) hours. Branch 250-50 mcg/dose inhalation disk fluticasone 2022-0 Yes [id number] 1{puff} Inhale 1 [facility] propion-brittney 6-14 Puff every it y of meteroL 00:00: 12 [place] (ADVAIR 00 (twelve) Medical DISKUS) hours. Branch 250-50 mcg/dose inhalation disk fluticasone 2022-0 Yes [id number] 1{puff} Inhale 1 [facility] propion-brittney 6-14 Puff every it y of meteroL 00:00: 12 [place] (ADVAIR 00 (twelve) Medical DISKUS) hours. Branch 250-50 mcg/dose inhalation disk fluticasone 2022-0 Yes [id number] 1{puff} Inhale 1 [facility] propion-brittney 6-14 Puff every it y of meteroL 00:00: 12 [place] (ADVAIR 00 (twelve) Medical DISKUS) hours. Branch 250-50 mcg/dose inhalation disk methocarbam 2021-0 Yes [id number] 500mg Take 1 [facility] oL 500 mg 6-13 tablet by ity o f tablet 00:00: mouth [place] 00 every 6 Medical (six) Branch hours as needed for Pain (scale 7-10) (MUSCLE SPASM). methocarbam 2021-0 Yes [id number] 500mg Take 1 [facility] oL 500 mg 6-13 tablet by ity o f tablet 00:00: mouth [place] 00 every 6 Medical (six) Branch hours as needed for Pain (scale 7-10) (MUSCLE SPASM). methocarbam 2021-0 Yes [id number] 500mg Take 1 [facility] oL 500 mg 6-13 tablet by ity o f tablet 00:00: mouth [place] 00 every 6 Medical (six) Branch hours as needed for Pain (scale 7-10) (MUSCLE SPASM). methocarbam 2021-0 Yes [id number] 500mg Take 1 [facility] oL 500 mg 6-13 tablet by ity o f tablet 00:00: mouth [place] 00 every 6 Medical (six) Branch hours as needed for Pain (scale 7-10) (MUSCLE SPASM). methocarbam 2021-0 Yes [id number] 500mg Take 1 [facility] oL 500 mg 6-13 tablet by ity o f tablet 00:00: mouth [place] 00 every 6 Medical (six) Branch hours as needed for Pain (scale 7-10) (MUSCLE SPASM). methocarbam 2021-0 Yes [id number] 500mg Take 1 [facility] oL 500 mg 6-13 tablet by ity o f tablet 00:00: mouth [place] 00 every 6 Medical (six) Branch hours as needed for Pain (scale 7-10) (MUSCLE SPASM). methocarbam 2-0 Yes [id number] 500mg Take 1 [facility] oL 500 mg 6-13 tablet by ity o f tablet 00:00: mouth [place] 00 every 6 Medical (six) Branch hours as needed for Pain (scale 7-10) (MUSCLE SPASM). methocarbam 2021-0 Yes [id number] 500mg Take 1 [facility] oL 500 mg 6-13 tablet by ity o f tablet 00:00: mouth [place] 00 every 6 Medical (six) Branch hours as needed for Pain (scale 7-10) (MUSCLE SPASM). methocarbam 2021-0 Yes [id number] 500mg Take 1 [facility] oL 500 mg 6-13 tablet by ity o f tablet 00:00: mouth [place] 00 every 6 Medical (six) Branch hours as needed for Pain (scale 7-10) (MUSCLE SPASM). methocarbam 2021-0 Yes [id number] 500mg Take 1 [facility] oL 500 mg 6-13 tablet by ity o f tablet 00:00: mouth [place] 00 every 6 Medical (six) Branch hours as needed for Pain (scale 7-10) (MUSCLE SPASM). methocarbam 2021-0 Yes [id number] 500mg Take 1 [facility] oL 500 mg 6-13 tablet by ity o f tablet 00:00: mouth [place] 00 every 6 Medical (six) Branch hours as needed for Pain (scale 7-10) (MUSCLE SPASM). methocarbam 2021-0 Yes [id number] 500mg Take 1 [facility] oL 500 mg 6-13 tablet by ity o f tablet 00:00: mouth [place] 00 every 6 Medical (six) Branch hours as needed for Pain (scale 7-10) (MUSCLE SPASM). methocarbam 2021-0 Yes [id number] 500mg Take 1 [facility] oL 500 mg 6-13 tablet by ity o f tablet 00:00: mouth [place] 00 every 6 Medical (six) Branch hours as needed for Pain (scale 7-10) (MUSCLE SPASM). methocarbam 2021-0 Yes [id number] 500mg Take 1 [facility] oL 500 mg 6-13 tablet by ity o f tablet 00:00: mouth [place] 00 every 6 Medical (six) Branch hours as needed for Pain (scale 7-10) (MUSCLE SPASM). methocarbam 2021-0 Yes [id number] 500mg Take 1 [facility] oL 500 mg 6-13 tablet by ity o f tablet 00:00: mouth [place] 00 every 6 Medical (six) Branch hours as needed for Pain (scale 7-10) (MUSCLE SPASM). methocarbam 2-0 Yes [id number] 500mg Take 1 [facility] oL 500 mg 6-13 tablet by ity o f tablet 00:00: mouth [place] 00 every 6 Medical (six) Branch hours as needed for Pain (scale 7-10) (MUSCLE SPASM). methocarbam 2021-0 Yes [id number] 500mg Take 1 [facility] oL 500 mg 6-13 tablet by ity o f tablet 00:00: mouth [place] 00 every 6 Medical (six) Branch hours as needed for Pain (scale 7-10) (MUSCLE SPASM). methocarbam 2021-0 Yes [id number] 500mg Take 1 [facility] oL 500 mg 6-13 tablet by ity o f tablet 00:00: mouth [place] 00 every 6 Medical (six) Branch hours as needed for Pain (scale 7-10) (MUSCLE SPASM). methocarbam 2021-0 Yes [id number] 500mg Take 1 [facility] oL 500 mg 6-13 tablet by ity o f tablet 00:00: mouth [place] 00 every 6 Medical (six) Branch hours as needed for Pain (scale 7-10) (MUSCLE SPASM). methocarbam 2021-0 Yes [id number] 500mg Take 1 [facility] oL 500 mg 6-13 tablet by ity o f tablet 00:00: mouth [place] 00 every 6 Medical (six) Branch hours as needed for Pain (scale 7-10) (MUSCLE SPASM). methocarbam 2021-0 Yes [id number] 500mg Take 1 [facility] oL 500 mg 6-13 tablet by ity o f tablet 00:00: mouth [place] 00 every 6 Medical (six) Branch hours as needed for Pain (scale 7-10) (MUSCLE SPASM). methocarbam 2021-0 Yes [id number] 500mg Take 1 [facility] oL 500 mg 6-13 tablet by ity o f tablet 00:00: mouth [place] 00 every 6 Medical (six) Branch hours as needed for Pain (scale 7-10) (MUSCLE SPASM). methocarbam 2021-0 Yes [id number] 500mg Take 1 [facility] oL 500 mg 6-13 tablet by ity o f tablet 00:00: mouth [place] 00 every 6 Medical (six) Branch hours as needed for Pain (scale 7-10) (MUSCLE SPASM). methocarbam 2-0 Yes [id number] 500mg Take 1 [facility] oL 500 mg 6-13 tablet by ity o f tablet 00:00: mouth [place] 00 every 6 Medical (six) Branch hours as needed for Pain (scale 7-10) (MUSCLE SPASM). methocarbam 2-0 Yes [id number] 500mg Take 1 [facility] oL 500 mg 6-13 tablet by ity o f tablet 00:00: mouth [place] 00 every 6 Medical (six) Branch hours as needed for Pain (scale 7-10) (MUSCLE SPASM). methocarbam 2021-0 Yes [id number] 500mg Take 1 [facility] oL 500 mg 6-13 tablet by ity o f tablet 00:00: mouth [place] 00 every 6 Medical (six) Branch hours as needed for Pain (scale 7-10) (MUSCLE SPASM). methocarbam 2021-0 Yes [id number] 500mg Take 1 [facility] oL 500 mg 6-13 tablet by ity o f tablet 00:00: mouth [place] 00 every 6 Medical (six) Branch hours as needed for Pain (scale 7-10) (MUSCLE SPASM). methocarbam 2021-0 Yes [id number] 500mg Take 1 [facility] oL 500 mg 6-13 tablet by ity o f tablet 00:00: mouth [place] 00 every 6 Medical (six) Branch hours as needed for Pain (scale 7-10) (MUSCLE SPASM). methocarbam 2021-0 Yes [id number] 500mg Take 1 [facility] oL 500 mg 6-13 tablet by ity o f tablet 00:00: mouth [place] 00 every 6 Medical (six) Branch hours as needed for Pain (scale 7-10) (MUSCLE SPASM). methocarbam 2021-0 Yes [id number] 500mg Take 1 [facility] oL 500 mg 6-13 tablet by ity o f tablet 00:00: mouth [place] 00 every 6 Medical (six) Branch hours as needed for Pain (scale 7-10) (MUSCLE SPASM). methocarbam 2021-0 Yes [id number] 500mg Take 1 [facility] oL 500 mg 6-13 tablet by ity o f tablet 00:00: mouth [place] 00 every 6 Medical (six) Branch hours as needed for Pain (scale 7-10) (MUSCLE SPASM). methocarbam 2-0 Yes [id number] 500mg Take 1 [facility] oL 500 mg 6-13 tablet by ity o f tablet 00:00: mouth [place] 00 every 6 Medical (six) Branch hours as needed for Pain (scale 7-10) (MUSCLE SPASM). methocarbam 2021-0 Yes [id number] 500mg Take 1 [facility] oL 500 mg 6-13 tablet by ity o f tablet 00:00: mouth [place] 00 every 6 Medical (six) Branch hours as needed for Pain (scale 7-10) (MUSCLE SPASM). methocarbam 2022-0 Yes [id number] 500mg Take 1 [facility] oL 500 mg 6-13 tablet by ity o f tablet 00:00: mouth [place] 00 every 6 Medical (six) Branch hours as needed for Pain (scale 7-10) (MUSCLE SPASM). methocarbam 2022-0 Yes [id number] 500mg Take 1 [facility] oL 500 mg 6-13 tablet by ity o f tablet 00:00: mouth [place] 00 every 6 Medical (six) Branch hours as needed for Pain (scale 7-10) (MUSCLE SPASM). ciprofloxac 2022-0 Yes TAKE 1 Yariel mariza in 500 mg 4-19 TABLET BY l oral tablet 17:15: MOUTH [place] 00 TWICE DAILY ciprofloxac 2022-0 Yes TAKE 1 Yariel mariza in 500 mg 4-19 TABLET BY l oral tablet 17:15: MOUTH [place] nn 00 TWICE DAILY ciprofloxac 2022-0 Yes TAKE 1 Yariel mariza in 500 mg 4-19 TABLET BY l oral tablet 17:15: MOUTH [place] nn 00 TWICE DAILY ciprofloxac 2022-0 Yes TAKE 1 Yariel mariza in 500 mg 4-19 TABLET BY l oral tablet 17:15: MOUTH [place] nn 00 TWICE DAILY ciprofloxac 2022-0 Yes TAKE 1 Yariel mariza in 500 mg 4-19 TABLET BY l oral tablet 17:15: MOUTH [place] nn 00 TWICE DAILY ciprofloxac 2022-0 Yes TAKE 1 Yariel mariza in 500 mg 4-19 TABLET BY l oral tablet 17:15: MOUTH [place] 00 TWICE DAILY ciprofloxac 2022-0 Yes TAKE 1 Yariel mariza in 500 mg 4-19 TABLET BY l oral tablet 17:15: MOUTH [place] 00 TWICE DAILY ciprofloxac 2022-0 Yes TAKE 1 Yariel mariza in 500 mg 4-19 TABLET BY l oral tablet 17:15: MOUTH [place] 00 TWICE DAILY ciprofloxac 2022-0 Yes TAKE 1 Yariel mariza in 500 mg 4-19 TABLET BY l oral tablet 17:15: MOUTH [place] 00 TWICE DAILY ciprofloxac 2022-0 Yes TAKE 1 Yariel mariza in 500 mg 4-19 TABLET BY l oral tablet 17:15: MOUTH [place] 00 TWICE DAILY ciprofloxac Yes TAKE 1 Yariel mariza in 500 mg 4-19 TABLET BY l oral tablet 17:15: MOUTH [place] 00 TWICE DAILY ciprofloxac 0 Yes TAKE 1 Yariel mariza in 500 mg 4-19 TABLET BY l oral tablet 17:15: MOUTH [place] 00 TWICE DAILY pregabalin 2020-10 Yes 50 mg = 1 Me moria 50 MG Oral 1-22 cap, PO, l Capsule 22:06: Bedtime, # Herm billie [Lyrica] 00 30 cap, 3 Refill(s), [id number], 162.56, cm, 09/18/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, Height, 93.182, kg, 09/18/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, Weight pregabalin 2020-10 Yes 50 mg = 1 Me moria 50 MG Oral 1-22 cap, PO, l Capsule 22:06: Bedtime, # [place] billie [Lyrica] 00 30 cap, 3 Refill(s), 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] tab, PO, l tablet 20:47: Daily, # [place] 00 90 tab, 0 Refill(s) tamsulosin 2020-10 [...] tab, PO, l tablet 20:47: Daily, # [place] 00 90 tab, 0 Refill(s) tamsulosin 2020-10 [...] tab, PO, l MG Extended 20:46: Breakfast, [place] Release 00 # 30 tab, Tablet 0 [...] tab, PO, l MG Extended 20:46: Breakfast, [place] Release 00 # 30 tab, Tablet 0 [...] PO, l oral tablet 20:46: Bedtime, # [place] 00 30 tab, 0 Refill(s) sitagliptin 2020-10 [...] PO, l oral tablet 20:46: Bedtime, # [place] 00 30 tab, 0 Refill(s) sitagliptin 2020-10 Yes 100 mg = 1 Memoria 100 MG Oral 0-19 tab, PO, l Tablet 20:46: Daily, # [place] [Januvia] 00 30 tab, 0 Refill(s) 24 HR 2020-10 Yes 5 mg = 1 [facility] Glipizide 5 0-19 tab, PO, l MG Extended 20:46: Breakfast, [place] Release 00 # 30 tab, Tablet 0 Refill(s) rosuvastati 2020-10 Yes 10 mg = 1 M emoria n 10 mg 0-19 tab, PO, l oral tablet 20:46: Bedtime, # [place] 00 30 tab, 0 Refill(s) sitagliptin 2020-10 Yes 100 mg = 1 Memoria 100 MG Oral 0-19 tab, PO, l Tablet 20:46: Daily, # [place] [Januvia] 00 30 tab, 0 Refill(s) 24 [...] tab, PO, l Tablet 20:46: Daily, # [place] [Januvia] 00 30 tab, 0 Refill(s) 24 HR 2020-10 Yes 5 mg = 1 [facility] Glipizide 5 0-19 tab, PO, l MG Extended 20:46: Breakfast, [place] Release 00 # 30 tab, Tablet 0 Refill(s) rosuvastati 2020-10 Yes 10 mg = 1 M emoria n 10 mg 0-19 tab, PO, l oral tablet 20:46: Bedtime, # [place] 00 30 tab, 0 Refill(s) sitagliptin 2020-10 Yes 100 mg = 1 Mem[facility] 100 MG Oral 0-19 tab, PO, l Tablet 20:46: Daily, # [place] [Januvia] 00 30 tab, 0 Refill(s) 24 [...] tab, PO, l Tablet 20:46: Daily, # [place] [Januvia] 00 30 tab, 0 Refill(s) 24 HR 2020-10 Yes 5 mg = 1 [facility] Glipizide 5 0-19 tab, PO, l MG Extended 20:46: Breakfast, [place] Release 00 # 30 tab, Tablet 0 Refill(s) rosuvastati 2020-10 Yes 10 mg = 1 M emoria n 10 mg 0-19 tab, PO, l oral tablet 20:46: Bedtime, # [place] 00 30 tab, 0 Refill(s) sitagliptin 2020-10 Yes 100 mg = 1 Mem[facility] 100 MG Oral 0-19 tab, PO, l Tablet 20:46: Daily, # [place] [Januvia] 00 30 tab, 0 Refill(s) 24 HR 2020-10 Yes 5 mg = 1 [facility] Glipizide 5 0-19 tab, PO, l MG Extended 20:46: Breakfast, [place] Release 00 # 30 tab, Tablet 0 Refill(s) rosuvastati 2020-10 Yes 10 mg = 1 M emoria n 10 mg 0-19 tab, PO, l oral tablet 20:46: Bedtime, # [place] 00 30 tab, 0 Refill(s) sitagliptin 2020-10 Yes 100 mg = 1 Memoria 100 MG Oral 0-19 tab, PO, l Tablet 20:46: Daily, # [place] [Januvia] 00 30 tab, 0 Refill(s) 24 [...] Medical times Branch daily. nitroglycer 2020-[id number] 1 [facility] in 0.4 mg 1-23 tablet ity of sublingual 00:00: under the [place] tablet 00 tongue Medical every 5 Branch (five) minutes as needed for Chest pain. nitroglycer 2020-[id number] 1 [facility] in 0.4 mg 1-23 tablet ity of sublingual 00:00: under the [place] tablet 00 tongue Medical every 5 Branch (five) minutes as needed for Chest pain. nitroglycer 2020-[id number] 1 [facility] in 0.4 mg 1-23 tablet ity of sublingual 00:00: under the [place] tablet 00 tongue Medical every 5 Branch (five) minutes as needed for Chest pain. nitroglycer 2020-[id number] 1 [facility] in 0.4 mg 1-23 tablet ity of sublingual 00:00: under the [place] tablet 00 tongue Medical every 5 Branch (five) minutes as needed for Chest pain. nitroglycer 2020-[id number] 1 [facility] in 0.4 mg 1-23 tablet ity of sublingual 00:00: under the [place] tablet 00 tongue Medical every 5 Branch (five) minutes as needed for Chest pain. nitroglycer 2020-[id number] [facility] in 0.4 mg 1-23 tablet ity of sublingual 00:00: under the [place] tablet 00 tongue Medical every 5 Branch (five) minutes as needed for Chest pain. nitroglycer 2020-[id number] 1 [facility] in 0.4 mg 1-23 tablet ity of sublingual 00:00: under the [place] tablet 00 tongue Medical every 5 Branch (five) minutes as needed for Chest pain. nitroglycer 2020-[id number] 1 [facility] in 0.4 mg 1-23 tablet ity of sublingual 00:00: under the [place] tablet 00 tongue Medical every 5 Branch (five) minutes as needed for Chest pain. nitroglycer 2020-[id number] 1 [facility] in 0.4 mg 1-23 tablet ity of sublingual 00:00: under the [place] tablet 00 tongue Medical every 5 Branch (five) minutes as needed for Chest pain. nitroglycer 2020-[id number] 1 [facility] in 0.4 mg 1-23 tablet ity of sublingual 00:00: under the [place] tablet 00 tongue Medical every 5 Branch (five) minutes as needed for Chest pain. nitroglycer 2020-[id number] 1 [facility] in 0.4 mg 1-23 tablet ity of sublingual 00:00: under the [place] tablet 00 tongue Medical every 5 Branch (five) minutes as needed for Chest pain. nitroglycer 2020-[id number] 1 [facility] in 0.4 mg 1-23 tablet ity of sublingual 00:00: under the [place] tablet 00 tongue Medical every 5 Branch (five) minutes as needed for Chest pain. nitroglycer 2020-[id number] 1 [facility] in 0.4 mg 1-23 tablet ity of sublingual 00:00: under the [place] tablet 00 tongue Medical every 5 Branch (five) minutes as needed for Chest pain. nitroglycer 2020-[id number] 1 [facility] in 0.4 mg 1-23 tablet ity of sublingual 00:00: under the [place] tablet 00 tongue Medical every 5 Branch (five) minutes as needed for Chest pain. nitroglycer 2020-[id number] 1 [facility] in 0.4 mg 1-23 tablet ity of sublingual 00:00: under the [place] tablet 00 tongue Medical every 5 Branch (five) minutes as needed for Chest pain. nitroglycer 2020-[id number] 1 [facility] in 0.4 mg 1-23 tablet ity of sublingual 00:00: under the [place] tablet 00 tongue Medical every 5 Branch (five) minutes as needed for Chest pain. nitroglycer 2020-[id number] 1 [facility] in 0.4 mg 1-23 tablet ity of sublingual 00:00: under the [place] tablet 00 tongue Medical every 5 Branch (five) minutes as needed for Chest pain. nitroglycer 2020-[id number] 1 [facility] in 0.4 mg 1-23 tablet ity of sublingual 00:00: under the [place] tablet 00 tongue Medical every 5 Branch (five) minutes as needed for Chest pain. nitroglycer 2020-[id number] 1 [facility] in 0.4 mg 1-23 tablet ity of sublingual 00:00: under the [place] tablet 00 tongue Medical every 5 Branch (five) minutes as needed for Chest pain. nitroglycer 2020-[id number] 1 [facility] in 0.4 mg 1-23 tablet ity of sublingual 00:00: under the [place] tablet 00 tongue Medical every 5 Branch (five) minutes as needed for Chest pain. nitroglycer 2020-[id number] 1 [facility] in 0.4 mg 1-23 tablet ity of sublingual 00:00: under the [place] tablet 00 tongue Medical every 5 Branch (five) minutes as needed for Chest pain. nitroglycer 2020-[id number] 1 [facility] in 0.4 mg 1-23 tablet ity of sublingual 00:00: under the [place] tablet 00 tongue Medical every 5 Branch (five) minutes as needed for Chest pain. nitroglycer 2020-[id number] 1 [facility] in 0.4 mg 1-23 tablet ity of sublingual 00:00: under the [place] tablet 00 tongue Medical every 5 Branch (five) minutes as needed for Chest pain. nitroglycer 2020-[id number] 1 [facility] in 0.4 mg 1-23 tablet ity of sublingual 00:00: under the [place] tablet 00 tongue Medical every 5 Branch (five) minutes as needed for Chest pain. nitroglycer 2020-[id number] 1 [facility] in 0.4 mg 1-23 tablet ity of sublingual 00:00: under the [place] tablet 00 tongue Medical every 5 Branch (five) minutes as needed for Chest pain. nitroglycer 2020-[id number] 1 [facility] in 0.4 mg 1-23 tablet ity of sublingual 00:00: under the [place] tablet 00 tongue Medical every 5 Branch (five) minutes as needed for Chest pain. nitroglycer 2020-[id number] 1 [facility] in 0.4 mg 1-23 tablet ity of sublingual 00:00: under the [place] tablet 00 tongue Medical every 5 Branch (five) minutes as needed for Chest pain. nitroglycer 2020-[id number] 1 [facility] in 0.4 mg 1-23 tablet ity of sublingual 00:00: under the [place] tablet 00 tongue Medical every 5 Branch (five) minutes as needed for Chest pain. nitroglycer 2020-[id number] 1 [facility] in 0.4 mg 1-23 tablet ity of sublingual 00:00: under the [place] tablet 00 tongue Medical every 5 Branch (five) minutes as needed for Chest pain. nitroglycer 2020-[id number] 1 [facility] in 0.4 mg 1-23 tablet ity of sublingual 00:00: under the [place] tablet 00 tongue Medical every 5 Branch (five) minutes as needed for Chest pain. nitroglycer 2020-[id number] 1 [facility] in 0.4 mg 1-23 tablet ity of sublingual 00:00: under the [place] tablet 00 tongue Medical every 5 Branch (five) minutes as needed for Chest pain. nitroglycer 2020-[id number] 1 [facility] in 0.4 mg 1-23 tablet ity of sublingual 00:00: under the [place] tablet 00 tongue Medical every 5 Branch (five) minutes as needed for Chest pain. nitroglycer 2020-[id number] 1 [facility] in 0.4 mg 1-23 tablet ity of sublingual 00:00: under the [place] tablet 00 tongue Medical every 5 Branch (five) minutes as needed for Chest pain. nitroglycer 2020-[id number] 1 [facility] in 0.4 mg 1-23 tablet ity of sublingual 00:00: under the [place] tablet 00 tongue Medical every 5 Branch (five) minutes as needed for Chest pain. nitroglycer 2020-[id number] 1 [facility] in 0.4 mg 1-23 tablet ity of sublingual 00:00: under the [place] tablet 00 tongue Medical every 5 Branch (five) minutes as needed for Chest pain. albuterol 2019-0 Yes [id number] 2{puff} Inhale 2 [facility] 90 1-16 Puffs ity of mcg/actuati 00:00: every 6 [facility] as on inhaler 00 (six) Medical hours as Branch needed for Wheezing or Shortness of Breath. albuterol 2019-0 Yes [id number] 2{puff} Inhale 2 [facility] 90 1-16 Puffs ity of mcg/actuati 00:00: every 6 [facility] as on inhaler 00 (six) Medical hours as Branch needed for Wheezing or Shortness of Breath. albuterol 2020-0 Yes [id number] 2{puff} Inhale 2 [facility] 90 1-16 Puffs ity of mcg/actuati 00:00: every 6 [facility] as on inhaler 00 (six) Medical hours as Branch needed for Wheezing or Shortness of Breath. albuterol 2019-0 Yes [id number] 2{puff} Inhale 2 [facility] 90 1-16 Puffs ity of mcg/actuati 00:00: every 6 [facility] on inhaler 00 (six) Medical hours as Branch needed for Wheezing or Shortness of Breath. albuterol 2020-0 Yes [id number] 2{puff} Inhale 2 [facility] 90 1-16 Puffs ity of mcg/actuati 00:00: every 6 [facility] on inhaler 00 (six) Medical hours as Branch needed for Wheezing or Shortness of Breath. albuterol 2020-0 Yes [id number] 2{puff} Inhale 2 [facility] 90 1-16 Puffs ity of mcg/actuati 00:00: every 6 [facility] on inhaler 00 (six) Medical hours as Branch needed for Wheezing or Shortness of Breath. albuterol 2019-0 Yes [id number] 2{puff} Inhale 2 [facility] 90 1-16 Puffs ity of mcg/actuati 00:00: every 6 [facility] on inhaler 00 (six) Medical hours as Branch needed for Wheezing or Shortness of Breath. albuterol Yes [id number] 2{puff} Inhale 2 [facility] 90 1-16 Puffs ity of mcg/actuati 00:00: every 6 [facility] on inhaler 00 (six) Medical hours as Branch needed for Wheezing or Shortness of Breath. albuterol Yes [id number] 2{puff} Inhale 2 [facility] 90 1-16 Puffs ity of mcg/actuati 00:00: every 6 [facility] on inhaler 00 (six) Medical hours as Branch needed for Wheezing or Shortness of Breath. albuterol 0 Yes [id number] 2{puff} Inhale 2 [facility] 90 1-16 Puffs ity of mcg/actuati 00:00: every 6 [facility] on inhaler 00 (six) Medical hours as Branch needed for Wheezing or Shortness of Breath. albuterol 0 Yes [id number] 2{puff} Inhale 2 [facility] 90 1-16 Puffs ity of mcg/actuati 00:00: every 6 [facility] on inhaler 00 (six) Medical hours as Branch needed for Wheezing or Shortness of Breath. albuterol 0 Yes [id number] 2{puff} Inhale 2 [facility] 90 1-16 Puffs ity of mcg/actuati 00:00: every 6 [place] [facility] on inhaler 00 (six) Medical hours as Branch needed for Wheezing or Shortness of Breath. albuterol Yes [id number] 2{puff} Inhale 2 [facility] 90 1-16 Puffs ity of mcg/actuati 00:00: every 6 [place] [facility] on inhaler 00 (six) Medical hours as Branch needed for Wheezing or Shortness of Breath. albuterol 2019-0 Yes [id number] 2{puff} Inhale 2 [facility] 90 1-16 Puffs ity of mcg/actuati 00:00: every 6 [facility] as on inhaler 00 (six) Medical hours as Branch needed for Wheezing or Shortness of Breath. albuterol 2019-0 Yes [id number] 2{puff} Inhale 2 [facility] 90 1-16 Puffs ity of mcg/actuati 00:00: every 6 [facility] on inhaler 00 (six) Medical hours as Branch needed for Wheezing or Shortness of Breath. albuterol Yes [id number] 2{puff} Inhale 2 [facility] 90 1-16 Puffs ity of mcg/actuati 00:00: every 6 [facility] on inhaler 00 (six) Medical hours as Branch needed for Wheezing or Shortness of Breath. albuterol Yes [id number] 2{puff} Inhale 2 [facility] 90 1-16 Puffs ity of mcg/actuati 00:00: every 6 [facility] as on inhaler 00 (six) Medical hours as Branch needed for Wheezing or Shortness of Breath. albuterol Yes [id number] 2{puff} Inhale 2 [facility] 90 1-16 Puffs ity of mcg/actuati 00:00: every 6 [facility] as on inhaler 00 (six) Medical hours as Branch needed for Wheezing or Shortness of Breath. albuterol Yes [id number] 2{puff} Inhale 2 [facility] 90 1-16 Puffs ity of mcg/actuati 00:00: every 6 [facility] as on inhaler 00 (six) Medical hours as Branch needed for Wheezing or Shortness of Breath. albuterol Yes [id number] 2{puff} Inhale 2 [facility] 90 1-16 Puffs ity of mcg/actuati 00:00: every 6 [facility] as on inhaler 00 (six) Medical hours as Branch needed for Wheezing or Shortness of Breath. albuterol Yes [id number] 2{puff} Inhale 2 [facility] 90 1-16 Puffs ity of mcg/actuati 00:00: every 6 [facility] as on inhaler 00 (six) Medical hours as Branch needed for Wheezing or Shortness of Breath. albuterol 0 Yes [id number] 2{puff} Inhale 2 [facility] 90 1-16 Puffs ity of mcg/actuati 00:00: every 6 [facility] as on inhaler 00 (six) Medical hours as Branch needed for Wheezing or Shortness of Breath. albuterol Yes [id number] 2{puff} Inhale 2 [facility] 90 1-16 Puffs ity of mcg/actuati 00:00: every 6 [facility] as on inhaler 00 (six) Medical hours as Branch needed for Wheezing or Shortness of Breath. albuterol 2020-0 Yes [id number] 2{puff} Inhale 2 [facility] 90 1-16 Puffs ity of mcg/actuati 00:00: every 6 [facility] as on inhaler 00 (six) Medical hours as Branch needed for Wheezing or Shortness of Breath. albuterol 2020-0 Yes [id number] 2{puff} Inhale 2 [facility] 90 1-16 Puffs ity of mcg/actuati 00:00: every 6 [facility] as on inhaler 00 (six) Medical hours as Branch needed for Wheezing or Shortness of Breath. albuterol 2019-0 Yes [id number] 2{puff} Inhale 2 [facility] 90 1-16 Puffs ity of mcg/actuati 00:00: every 6 [facility] as on inhaler 00 (six) Medical hours as Branch needed for Wheezing or Shortness of Breath. albuterol 2020-0 Yes [id number] 2{puff} Inhale 2 [facility] 90 1-16 Puffs ity of mcg/actuati 00:00: every 6 [facility] as on inhaler 00 (six) Medical hours as Branch needed for Wheezing or Shortness of Breath. albuterol 2020-0 Yes [id number] 2{puff} Inhale 2 [facility] 90 1-16 Puffs ity of mcg/actuati 00:00: every 6 [facility] as on inhaler 00 (six) Medical hours as Branch needed for Wheezing or Shortness of Breath. albuterol 2020-0 Yes [id number] 2{puff} Inhale 2 [facility] 90 1-16 Puffs ity of mcg/actuati 00:00: every 6 [facility] as on inhaler 00 (six) Medical hours as Branch needed for Wheezing or Shortness of Breath. albuterol 2020-0 Yes [id number] 2{puff} Inhale 2 [facility] 90 1-16 Puffs ity of mcg/actuati 00:00: every 6 [facility] as on inhaler 00 (six) Medical hours as Branch needed for Wheezing or Shortness of Breath. albuterol 2020-0 Yes [id number] 2{puff} Inhale 2 [facility] 90 1-16 Puffs ity of mcg/actuati 00:00: every 6 [facility] as on inhaler 00 (six) Medical hours as Branch needed for Wheezing or Shortness of Breath. albuterol Yes [id number] 2{puff} Inhale 2 [facility] 90 1-16 Puffs ity of mcg/actuati 00:00: every 6 [facility] as on inhaler 00 (six) Medical hours as Branch needed for Wheezing or Shortness of Breath. albuterol Yes [id number] 2{puff} Inhale 2 [facility] 90 1-16 Puffs ity of mcg/actuati 00:00: every 6 [facility] as on inhaler 00 (six) Medical hours as Branch needed for Wheezing or Shortness of Breath. albuterol Yes [id number] 2{puff} Inhale 2 [facility] 90 1-16 Puffs ity of mcg/actuati 00:00: every 6 [facility] as on inhaler 00 (six) Medical hours as Branch needed for Wheezing or Shortness of Breath. albuterol Yes [id number] 2{puff} Inhale 2 [facility] 90 1-16 Puffs ity of mcg/actuati 00:00: every 6 [facility] as on inhaler 00 (six) Medical hours as Branch needed for Wheezing or Shortness of Breath. levothyroxi 2018-10 Yes TK 1 T PO U nivers ne 75 mcg 2-31 QD ity of tablet 00:00: [place] [facility] levothyroxi 2018-10 Yes TK 1 T PO U nivers ne 75 mcg 2-31 QD ity of tablet 00:00: [place] [facility] levothyroxi 2018-10 Yes TK 1 T PO U nivers ne 75 mcg 2-31 QD ity of tablet 00:00: [place] [facility] levothyroxi 2018-10 Yes TK 1 T PO U nivers ne 75 mcg 2-31 QD ity of tablet 00:00: [place] [facility] levothyroxi 2018-10 Yes TK 1 T PO U nivers ne 75 mcg 2-31 QD ity of tablet 00:00: [place] [facility] levothyroxi 2018-10 Yes TK 1 T PO U nivers ne 75 mcg 2-31 QD ity of tablet 00:00: [address] levothyroxi 2018-10 Yes TK 1 T PO U nivers ne 75 mcg 2-31 QD ity of tablet 00:00: [place] [address] [facility] levothyroxi 2019- Yes TK 1 T PO U nivers ne 75 mcg 2-31 QD ity of tablet 00:00: [place] [facility] levothyroxi 2019 Yes TK 1 T PO U nivers ne 75 mcg 2-31 QD ity of tablet 00:00: [address] levothyroxi 2018-10 Yes TK 1 T PO U nivers ne 75 mcg 2-31 QD ity of tablet 00:00: [address] levothyroxi 2018-10 Yes TK 1 T PO U nivers ne 75 mcg 2-31 QD ity of tablet 00:00: [address] levothyroxi 2018-10 Yes TK 1 T PO U nivers ne 75 mcg 2-31 QD ity of tablet 00:00: [address] levothyroxi 2018-10 Yes TK 1 T PO U nivers ne 75 mcg 2-31 QD ity of tablet 00:00: [address] levothyroxi 2018-10 Yes TK 1 T PO U nivers ne 75 mcg 2-31 QD ity of tablet 00:00: [address] levothyroxi 2018-10 Yes TK 1 T PO U nivers ne 75 mcg 2-31 QD ity of tablet 00:00: [address] levothyroxi 2018- Yes TK 1 T PO U nivers ne 75 mcg 2-31 QD ity of tablet 00:00: [address] levothyroxi 2018-10 Yes TK 1 T PO U nivers ne 75 mcg 2-31 QD ity of tablet 00:00: [address] levothyroxi 2019- Yes TK 1 T PO U nivers ne 75 mcg 2-31 QD ity of tablet 00:00: [address] levothyroxi 2018-10 Yes TK 1 T PO U nivers ne 75 mcg 2-31 QD ity of tablet 00:00: [address] levothyroxi 2018- Yes TK 1 T PO U nivers ne 75 mcg 2-31 QD ity of tablet 00:00: [address] levothyroxi 2018-10 Yes TK 1 T PO U nivers ne 75 mcg 2-31 QD ity of tablet 00:00: [address] levothyroxi 2018-1 Yes TK 1 T PO U nivers ne 75 mcg 2-31 QD ity of tablet 00:00: [place] [facility] levothyroxi 2019 Yes TK 1 T PO U nivers ne 75 mcg 2-31 QD ity of tablet 00:00: [address] levothyroxi 2018-10 Yes TK 1 T PO U nivers ne 75 mcg 2-31 QD ity of tablet 00:00: [place] [facility] levothyroxi 2018-10 Yes TK 1 T PO U nivers ne 75 mcg 2-31 QD ity of tablet 00:00: [place] [facility] levothyroxi 2018-10 Yes TK 1 T PO U nivers ne 75 mcg 2-31 QD ity of tablet 00:00: [address] levothyroxi 2018-10 Yes TK 1 T PO U nivers ne 75 mcg 2-31 QD ity of tablet 00:00: [address] levothyroxi 2018-10 Yes TK 1 T PO U nivers ne 75 mcg 2-31 QD ity of tablet 00:00: [address] levothyroxi 2018-10 Yes TK 1 T PO U nivers ne 75 mcg 2-31 QD ity of tablet 00:00: [address] levothyroxi 2018-10 Yes TK 1 T PO U nivers ne 75 mcg 2-31 QD ity of tablet 00:00: [address] levothyroxi 2018-10 Yes TK 1 T PO U nivers ne 75 mcg 2-31 QD ity of tablet 00:00: [address] levothyroxi 2018-10 Yes TK 1 T PO U nivers ne 75 mcg 2-31 QD ity of tablet 00:00: [address] levothyroxi 2018-10 Yes TK 1 T PO U nivers ne 75 mcg 2-31 QD ity of tablet 00:00: [address] levothyroxi 2018-10 Yes TK 1 T PO U nivers ne 75 mcg 2-31 QD ity of tablet 00:00: [address] levothyroxi 2018-10 Yes TK 1 T PO U nivers ne 75 mcg 2-31 QD ity of tablet 00:00: [address] DULoxetine 2018-10 Yes TK 1 C PO Un [place] 60 mg 2-27 D ity of capsule 00:00: [address] DULoxetine 2019- Yes TK 1 C PO Un [place] 60 mg 2-27 D ity of capsule 00:00: [place] [facility] DULoxetine 2018- Yes TK 1 C PO Un [place] 60 mg 2-27 D ity of capsule 00:00: [address] DULoxetine 2018-10 Yes TK 1 C PO Un [place] 60 mg 2-27 D ity of capsule 00:00: [place] [facility] DULoxetine 2018-10 Yes TK 1 C PO Un [place] 60 mg 2-27 D ity of capsule 00:00: [address] DULoxetine 2018- Yes TK 1 C PO Un [place] 60 mg 2-27 D ity of capsule 00:00: [address] DULoxetine 2018-10 Yes TK 1 C PO Un [place] 60 mg 2-27 D ity of capsule 00:00: [address] DULoxetine 2018- Yes TK 1 C PO [place] 60 mg 2-27 D ity of capsule 00:00: [address] DULoxetine 2018-10 Yes TK 1 C PO [facility] [place] 60 mg 2-27 D ity of capsule 00:00: [address] DULoxetine 2018- Yes TK 1 C PO Un [place] 60 mg 2-27 D ity of capsule 00:00: [address] DULoxetine 2018- Yes TK 1 C PO Un [place] 60 mg 2-27 D ity of capsule 00:00: [address] DULoxetine 2018- Yes TK 1 C PO Un [place] 60 mg 2-27 D ity of capsule 00:00: [address] DULoxetine 2018- Yes TK 1 C PO [facility] [place] 60 mg 2-27 D ity of capsule 00:00: [address] DULoxetine 2018- Yes TK 1 C PO Un [place] 60 mg 2-27 D ity of capsule 00:00: [address] DULoxetine 2018- Yes TK 1 C PO Un [place] 60 mg 2-27 D ity of capsule 00:00: [address] DULoxetine 2018- Yes TK 1 C PO [facility] [place] 60 mg 2-27 D ity of capsule 00:00: [address] DULoxetine 2018- Yes TK 1 C PO [facility] [place] 60 mg 2-27 D ity of capsule 00:00: [address] DULoxetine 2018- Yes TK 1 C PO Un [place] 60 mg 2-27 D ity of capsule 00:00: [place] [facility] DULoxetine 2018- Yes TK 1 C PO Un [place] 60 mg 2-27 D ity of capsule 00:00: [place] [facility] DULoxetine 2018-10 Yes TK 1 C PO Un [place] 60 mg 2-27 D ity of capsule 00:00: [place] [facility] DULoxetine 2018-10 Yes TK 1 C PO Un [place] 60 mg 2-27 D ity of capsule 00:00: [place] [facility] DULoxetine 2018- Yes TK 1 C PO Un [place] 60 mg 2-27 D ity of capsule 00:00: [address] DULoxetine 2018-10 Yes TK 1 C PO Un [place] 60 mg 2-27 D ity of capsule 00:00: [address] DULoxetine 2018-10 Yes TK 1 C PO [facility] [place] 60 mg 2-27 D ity of capsule 00:00: [address] DULoxetine 2018-10 Yes TK 1 C PO [facility] [place] 60 mg 2-27 D ity of capsule 00:00: [address] DULoxetine 2018-10 Yes TK 1 C PO [facility] [place] 60 mg 2-27 D ity of capsule 00:00: [address] DULoxetine 2018-10 Yes TK 1 C PO [facility] [place] 60 mg 2-27 D ity of capsule 00:00: [address] DULoxetine 2018-10 Yes TK 1 C PO [facility] [place] 60 mg 2-27 D ity of capsule 00:00: [address] DULoxetine 2018-10 Yes TK 1 C PO [facility] [place] 60 mg 2-27 D ity of capsule 00:00: [address] DULoxetine 2018- Yes TK 1 C PO [facility] [place] 60 mg 2-27 D ity of capsule 00:00: [address] DULoxetine 2018-10 Yes TK 1 C PO [facility] [place] 60 mg 2-27 D ity of capsule 00:00: [address] DULoxetine 2018- Yes TK 1 C PO [facility] [place] 60 mg 2-27 D ity of capsule 00:00: [address] DULoxetine 2018-10 Yes TK 1 C PO [facility] [place] 60 mg 2-27 D ity of capsule 00:00: [address] DULoxetine 2018- Yes TK 1 C PO Un [place] 60 mg 2-27 D ity of capsule 00:00: [place] [address] [facility] DULoxetine 2019- Yes TK 1 C PO Un [place] 60 mg 2-27 D ity of capsule 00:00: [place] 00 [facility] celecoxib 2019- Yes TK 1 C PO Uni vers 200 mg 2-23 D ity of capsule 00:00: [place] 00 [facility] celecoxib 2019- Yes TK 1 C PO Uni vers 200 mg 2-23 D ity of capsule 00:00: [place] [facility] celecoxib 2019- Yes TK 1 C PO Uni vers 200 mg 2-23 D ity of capsule 00:00: [place] 00 [facility] celecoxib 2019- Yes TK 1 C PO Uni vers 200 mg 2-23 D ity of capsule 00:00: [address] Branch celecoxib 2019- Yes TK 1 C PO Uni vers 200 mg 2-23 D ity of capsule 00:00: [address] Branch celecoxib 2019- Yes TK 1 C PO Uni vers 200 mg 2-23 D ity of capsule 00:00: [place] [facility] celecoxib 2019- Yes TK 1 C PO Uni vers 200 mg 2-23 D ity of capsule 00:00: [place] 00 [facility] celecoxib 2019- Yes TK 1 C PO Uni vers 200 mg 2-23 D ity of capsule 00:00: [place] [address] [facility] celecoxib 2019- Yes TK 1 C PO Uni vers 200 mg 2-23 D ity of capsule 00:00: [place] 00 [facility] celecoxib 2019- Yes TK 1 C PO Uni vers 200 mg 2-23 D ity of capsule 00:00: [place] 00 [facility] celecoxib 2019- Yes TK 1 C PO Uni vers 200 mg 2-23 D ity of capsule 00:00: [place] 00 [facility] celecoxib 2019- Yes TK 1 C PO Uni vers 200 mg 2-23 D ity of capsule 00:00: [place] 00 [facility] celecoxib 2019- Yes TK 1 C PO Uni vers 200 mg 2-23 D ity of capsule 00:00: [place] 00 [facility] celecoxib 2019- Yes TK 1 C PO Uni vers 200 mg 2-23 D ity of capsule 00:00: [place] [address] [facility] Branch celecoxib 2019- Yes TK 1 C PO Uni vers 200 mg 2-23 D ity of capsule 00:00: [place] 00 [facility] celecoxib 2019- Yes TK 1 C PO Uni vers 200 mg 2-23 D ity of capsule 00:00: [place] 00 [facility] celecoxib 2019- Yes TK 1 C PO Uni vers 200 mg 2-23 D ity of capsule 00:00: [place] [facility] celecoxib 2019- Yes TK 1 C PO Uni vers 200 mg 2-23 D ity of capsule 00:00: [place] [facility] celecoxib 2019- Yes TK 1 C PO Uni vers 200 mg 2-23 D ity of capsule 00:00: [place] [facility] celecoxib 2019- Yes TK 1 C PO Uni vers 200 mg 2-23 D ity of capsule 00:00: [place] [facility] celecoxib 2019- Yes TK 1 C PO Uni vers 200 mg 2-23 D ity of capsule 00:00: [place] [address] [facility] Branch celecoxib 2019- Yes TK 1 C PO Uni vers 200 mg 2-23 D ity of capsule 00:00: [place] [facility] celecoxib 2019- Yes TK 1 C PO Uni vers 200 mg 2-23 D ity of capsule 00:00: [place] [address] Medical Branch celecoxib 2019- Yes TK 1 C PO Uni vers 200 mg 2-23 D ity of capsule 00:00: [place] [facility] celecoxib 2019- Yes TK 1 C PO Uni vers 200 mg 2-23 D ity of capsule 00:00: [place] [address] [facility] Branch celecoxib 2019- Yes TK 1 C PO Uni vers 200 mg 2-23 D ity of capsule 00:00: [address] Branch celecoxib 2019- Yes TK 1 C PO Uni vers 200 mg 2-23 D ity of capsule 00:00: [place] [facility] celecoxib 2019- Yes TK 1 C PO Uni vers 200 mg 2-23 D ity of capsule 00:00: [place] [facility] celecoxib 2019- Yes TK 1 C PO Uni vers 200 mg 2-23 D ity of capsule 00:00: [place] [address] [facility] Branch celecoxib 2019- Yes TK 1 C PO Uni vers 200 mg 2-23 D ity of capsule 00:00: [place] [address] [facility] Branch celecoxib 2019- Yes TK 1 C PO Uni vers 200 mg 2-23 D ity of capsule 00:00: [place] [facility] celecoxib 2019- Yes TK 1 C PO Uni vers 200 mg 2-23 D ity of capsule 00:00: [place] [address] [facility] Branch celecoxib 2019- Yes TK 1 C PO Uni vers 200 mg 2-23 D ity of capsule 00:00: [facility] celecoxib 2019- Yes TK 1 C PO Uni vers 200 mg 2-23 D ity of capsule 00:00: [facility] celecoxib 2019- Yes TK 1 C PO Uni vers 200 mg 2-23 D ity of capsule 00:00: [facility] metformin 2019- Yes TK 1 T PO Uni vers ER 500 mg 2-11 D IN THE ity of 24 hr 00:00: [place] WITH [place] tablet [facility] metformin 2019- Yes TK 1 T PO Uni vers ER 500 mg 2-11 D IN THE ity of 24 hr 00:00: [facility] WITH [place] tablet [facility] metformin 2018- Yes TK 1 T PO Uni vers ER 500 mg 2-11 D IN THE ity of 24 hr 00:00: CLAUDIA WITH [place] tablet [facility] metformin 2018- Yes TK 1 T PO Uni vers ER 500 mg 2-11 D IN THE ity of 24 hr 00:00: CLAUDIA WITH [place] tablet [facility] metformin 2019- Yes TK 1 T PO Uni vers ER 500 mg 2-11 D IN THE ity of 24 hr 00:00: CLAUDIA WITH [place] tablet [facility] metformin 2019- Yes TK 1 T PO Uni vers ER 500 mg 2-11 D IN THE ity of 24 hr 00:00: CLAUDIA WITH [place] tablet [facility] metformin 2019- Yes TK 1 T PO Uni vers ER 500 mg 2-11 D IN THE ity of 24 hr 00:00: CLAUDIA WITH [place] tablet [facility] metformin 2019- Yes TK 1 T PO Uni vers ER 500 mg 2-11 D IN THE ity of 24 hr 00:00: CLAUDIA WITH [place] tablet 00 [facility] metformin 2019- Yes TK 1 T PO Uni vers ER 500 mg 2-11 D IN THE ity of 24 hr 00:00: CLAUDIA WITH [place] tablet 00 [facility] metformin 2019- Yes TK 1 T PO Uni vers ER 500 mg 2-11 D IN THE ity of 24 hr 00:00: CLAUDIA WITH [place] tablet 00 [facility] metformin 2019- Yes TK 1 T PO Uni vers ER 500 mg 2-11 D IN THE ity of 24 hr 00:00: CLAUDIA WITH [place] tablet 00 [facility] metformin 2019- Yes TK 1 T PO Uni vers ER 500 mg 2-11 D IN THE ity of 24 hr 00:00: CLAUDIA WITH [place] tablet 00 [facility] metformin 2019- Yes TK 1 T PO Uni vers ER 500 mg 2-11 D IN THE ity of 24 hr 00:00: CLAUDIA WITH [place] tablet 00 [facility] metformin 2019- Yes TK 1 T PO Uni vers ER 500 mg 2-11 D IN THE ity of 24 hr 00:00: CLAUDIA WITH [place] tablet 00 [facility] metformin 2019- Yes TK 1 T PO Uni vers ER 500 mg 2-11 D IN THE ity of 24 hr 00:00: CLAUDIA WITH [place] tablet 00 [facility] metformin 2019- Yes TK 1 T PO Uni vers ER 500 mg 2-11 D IN THE ity of 24 hr 00:00: CLAUDIA WITH [place] tablet 00 [facility] metformin 2019- Yes TK 1 T PO Uni vers ER 500 mg 2-11 D IN THE ity of 24 hr 00:00: CLAUDIA WITH [place] tablet 00 [facility] metformin 2019- Yes TK 1 T PO Uni vers ER 500 mg 2-11 D IN THE ity of 24 hr 00:00: CLAUDIA WITH [place] tablet 00 [facility] metformin 2019- Yes TK 1 T PO Uni vers ER 500 mg 2-11 D IN THE ity of 24 hr 00:00: CLAUDIA WITH [place] tablet 00 [facility] metformin 2019- Yes TK 1 T PO Uni vers ER 500 mg 2-11 D IN THE ity of 24 hr 00:00: CLAUDIA WITH [place] tablet 00 [facility] metformin 2019- Yes TK 1 T PO Uni vers ER 500 mg 2-11 D IN THE ity of 24 hr 00:00: CLAUDIA WITH [place] tablet 00 [facility] metformin 2019- Yes TK 1 T PO Uni vers ER 500 mg 2-11 D IN THE ity of 24 hr 00:00: CLAUDIA WITH [place] tablet 00 [facility] metformin 2019- Yes TK 1 T PO Uni vers ER 500 mg 2-11 D IN THE ity of 24 hr 00:00: CLAUDIA WITH [place] tablet 00 [facility] metformin 2019- Yes TK 1 T PO Uni vers ER 500 mg 2-11 D IN THE ity of 24 hr 00:00: CLAUDIA WITH [place] tablet 00 [facility] metformin 2019- Yes TK 1 T PO Uni vers ER 500 mg 2-11 D IN THE ity of 24 hr 00:00: CLAUDIA WITH [place] tablet 00 [facility] metformin 2019- Yes TK 1 T PO Uni vers ER 500 mg 2-11 D IN THE ity of 24 hr 00:00: CLAUDIA WITH [place] tablet 00 [facility] metformin 2019- Yes TK 1 T PO Uni vers ER 500 mg 2-11 D IN THE ity of 24 hr 00:00: CLAUDIA WITH [place] tablet [facility] metformin 2019- Yes TK 1 T PO Uni vers ER 500 mg 2-11 D IN THE ity of 24 hr 00:00: CLAUDIA WITH [place] tablet [facility] metformin 2019- Yes TK 1 T PO Uni vers ER 500 mg 2-11 D IN THE ity of 24 hr 00:00: CLAUDIA WITH [place] tablet [facility] metformin 2019- Yes TK 1 T PO Uni vers ER 500 mg 2-11 D IN THE ity of 24 hr 00:00: CLAUDIA WITH [place] tablet [facility] metformin 2019- Yes TK 1 T PO Uni vers ER 500 mg 2-11 D IN THE ity of 24 hr 00:00: CLAUDIA WITH [place] tablet [facility] metformin 2019- Yes TK 1 T PO Uni vers ER 500 mg 2-11 D IN THE ity of 24 hr 00:00: CLAUDIA WITH [place] tablet 00 [facility] metformin 2019- Yes TK 1 T PO Uni vers ER 500 mg 2-11 D IN THE ity of 24 hr 00:00: CLAUDIA WITH [place] tablet 00 [facility] metformin 2019- Yes TK 1 T PO Uni vers ER 500 mg 2-11 D IN THE ity of 24 hr 00:00: CLAUDIA WITH [place] tablet [facility] metformin 2019- Yes TK 1 T PO Uni vers ER 500 mg 2-11 D IN THE ity of 24 hr 00:00: CLAUDIA WITH [place] tablet 00 [facility] omeprazole 2019- Yes TK 1 C PO Un oseas 40 mg 1-24 QD ity of capsule 00:00: [facility] omeprazole 2019- Yes TK 1 C PO Un oseas 40 mg 1-24 QD ity of capsule 00:00: [facility] omeprazole 2019- Yes TK 1 C PO Un oseas 40 mg 1-24 QD ity of capsule 00:00: [facility] omeprazole 2019- Yes TK 1 C PO Un oseas 40 mg 1-24 QD ity of capsule 00:00: [place] [facility] omeprazole 2019- Yes TK 1 C PO Un oseas 40 mg 1-24 QD ity of capsule 00:00: [address] omeprazole 2019- Yes TK 1 C PO Un oseas 40 mg 1-24 QD ity of capsule 00:00: [address] omeprazole 2019- Yes TK 1 C PO Un oseas 40 mg 1-24 QD ity of capsule 00:00: [address] omeprazole 2019- Yes TK 1 C PO Un oseas 40 mg 1-24 QD ity of capsule 00:00: [address] omeprazole 2019- Yes TK 1 C PO Un oseas 40 mg 1-24 QD ity of capsule 00:00: [address] omeprazole 2019- Yes TK 1 C PO Un oseas 40 mg 1-24 QD ity of capsule 00:00: [address] omeprazole 2019- Yes TK 1 C PO Un oseas 40 mg 1-24 QD ity of capsule 00:00: [address] omeprazole 2019- Yes TK 1 C PO Un oseas 40 mg 1-24 QD ity of capsule 00:00: [address] omeprazole 2019- Yes TK 1 C PO Un oseas 40 mg 1-24 QD ity of capsule 00:00: [address] omeprazole 2019- Yes TK 1 C PO Un oseas 40 mg 1-24 QD ity of capsule 00:00: [address] omeprazole 2019- Yes TK 1 C PO Un oseas 40 mg 1-24 QD ity of capsule 00:00: [address] omeprazole 2019- Yes TK 1 C PO Un oseas 40 mg 1-24 QD ity of capsule 00:00: [address] omeprazole 2019- Yes TK 1 C PO Un oseas 40 mg 1-24 QD ity of capsule 00:00: [address] omeprazole 2019- Yes TK 1 C PO Un oseas 40 mg 1-24 QD ity of capsule 00:00: [address] omeprazole 2019- Yes TK 1 C PO Un oseas 40 mg 1-24 QD ity of capsule 00:00: [address] omeprazole 2019- Yes TK 1 C PO Un oseas 40 mg 1-24 QD ity of capsule 00:00: [place] [facility] omeprazole 2019- Yes TK 1 C PO Un oseas 40 mg 1-24 QD ity of capsule 00:00: [place] [facility] omeprazole 2019- Yes TK 1 C PO Un oseas 40 mg 1-24 QD ity of capsule 00:00: [place] [facility] omeprazole 2019- Yes TK 1 C PO Un oseas 40 mg 1-24 QD ity of capsule 00:00: [place] [facility] omeprazole 2019- Yes TK 1 C PO Un oseas 40 mg 1-24 QD ity of capsule 00:00: [address] omeprazole 2019- Yes TK 1 C PO Un oseas 40 mg 1-24 QD ity of capsule 00:00: [address] omeprazole 2019- Yes TK 1 C PO Un oseas 40 mg 1-24 QD ity of capsule 00:00: [address] omeprazole 2019- Yes TK 1 C PO Un oseas 40 mg 1-24 QD ity of capsule 00:00: [address] omeprazole 2019- Yes TK 1 C PO Un oseas 40 mg 1-24 QD ity of capsule 00:00: [place] [facility] omeprazole 2019- Yes TK 1 C PO Un oseas 40 mg 1-24 QD ity of capsule 00:00: [address] omeprazole 2019- Yes TK 1 C PO Un oseas 40 mg 1-24 QD ity of capsule 00:00: [address] omeprazole 2019- Yes TK 1 C PO Un oseas 40 mg 1-24 QD ity of capsule 00:00: [place] [facility] omeprazole 2019- Yes TK 1 C PO Un oseas 40 mg 1-24 QD ity of capsule 00:00: [address] omeprazole 2019- Yes TK 1 C PO Un oseas 40 mg 1-24 QD ity of capsule 00:00: [address] omeprazole 2019- Yes TK 1 C PO Un oseas 40 mg 1-24 QD ity of capsule 00:00: [address] omeprazole 2019- Yes TK 1 C PO Un oseas 40 mg 1-24 QD ity of capsule 00:00: [address] omeprazole 2019- Yes 40mg QD Take 40 mg C [...] iazide 13:29: mouth Medical (HYZAAR) 29 daily. [place] 50-12.5 mg per tablet mometasone- Yes 2{puff} Q.5D Inhale [address] [facility] formoterol 4-29 puffs by Lucarmela (DULERA) 13:29: mouth via Medi sweta 100-5 [...] 13:29: mouth Medic al LEVOTHROID) 29 daily. [place] 75 MCG tablet cholecalcif Yes 1000U QD Take 1,[address] [facility] geoff 4-29 Units by Maira (VITAMIN 13:29: mouth Medical D3) 1,000 29 daily. [place] unit tablet b complex Yes 1{capsu QD Take [address] [facility] vitamins 4-29 le} capsule by Maira capsule 13:29: mouth Medical 29 daily. [place] magnesium Yes 30mg Q.5D Take [address] 30 mg 4-29 by mouth 2 [facility] 13:29: (two) Medical 29 times Center daily. aspirin 81 2019-0 Yes 81mg QD Take [address] MG EC 4-29 by [facility] tablet 13:29: daily. [facility] 29 Center omeprazole 0 Yes 40mg QD Take [address] (PRILOSEC) 4-29 by mouth [facility] 40 MG 13:29: daily. Medical capsule 29 Center tamsulosin Yes .4mg QD Take 0.[address] [facility] (FLOMAX) 4-29 mg by [facility] 0.4 mg Cp24 13:29: mouth Medic al 24 hr 29 daily. Center capsule losartan-hy Yes 1{tbl} QD Take [address] droCHLOROth 4-29 tablet by Gee lopeze 13:29: mouth Medical (HYZAAR) 29 daily. Center 50-12.5 mg per tablet mometasone- 2018- Yes 2{puff} Q.5D Inhale [address] [facility] [...] 13:29: mouth Medic al LEVOTHROID) 29 daily. [place] 75 MCG tablet cholecalcif Yes 1000U QD Take 1,[address] [facility] geoff 4-29 Units by Lucarmela (VITAMIN 13:29: mouth Medical D3) 1,000 29 daily. [place] unit tablet b complex Yes 1{capsu QD Take [address] [facility] vitamins 4-29 le} capsule by Maira capsule 13:29: mouth Medical 29 daily. [place] magnesium Yes 30mg Q.5D Take [address] 30 mg 4-29 by mouth 2 [facility] tablet 13[facility]29: (two) Medical 29 times Center daily. aspirin 81 Yes 81mg QD Take [address] MG EC 4-29 by mouth [facility] tablet 13:29: daily. Medical 29 Center omeprazole 0 Yes 40mg QD Take 40 mg C [...] 13:29: mouth Medic al LEVOTHROID) 29 daily. [place] 75 MCG tablet cholecalcif Yes 1000U QD Take 1,[address] [facility] [address] geoff 4-29 Units by Maira (VITAMIN 13:29: mouth Medical D3) 1,000 29 daily. [place] unit tablet b complex Yes 1{capsu QD Take [address] [facility] [facility] vitamins 4-29 le} capsule by Lucarmela capsule 13:29: mouth Medical 29 daily. [place] magnesium Yes 30mg Q.5D Take [address] 30 mg 4-29 by mouth 2 [facility] tablet 13:29: (two) Medical 29 times Center daily. aspirin 81 Yes 81mg QD Take [address] MG EC 4-29 by mouth [facility] tablet 13:29: daily. Medical 29 [place] rosuvastati 2016-10 Yes 2.5mg Take 0.5 U nivers n 5 mg 1-20 tablets by ity of tablet 00:00: mouth. [address] rosuvastati 2016-10 Yes 2.5mg Take 0.5 U nivers n 5 mg 1-20 tablets by ity of tablet 00:00: mouth. [address] rosuvastati 2016-10 Yes 2.5mg Take 0.5 U nivers n 5 mg 1-20 tablets by ity of tablet 00:00: mouth. [address] rosuvastati 2016-10 Yes 2.5mg Take 0.5 U nivers n 5 mg 1-20 tablets by ity of tablet 00:00: mouth. [facility] rosuvastati 2016-10 Yes 2.5mg Take 0.5 U nivers n 5 mg 1-20 tablets by ity of tablet 00:00: mouth. [facility] rosuvastati 2016-10 Yes 2.5mg Take 0.5 U nivers n 5 mg 1-20 tablets by ity of tablet 00:00: mouth. [facility] rosuvastati 2016-10 Yes 2.5mg Take 0.5 U nivers n 5 mg 1-20 tablets by ity of tablet 00:00: mouth. [facility] rosuvastati 2016-10 Yes 2.5mg Take 0.5 U nivers n 5 mg 1-20 tablets by ity of tablet 00:00: mouth. [facility] rosuvastati 2016-10 Yes 2.5mg Take 0.5 U nivers n 5 mg 1-20 tablets by ity of tablet 00:00: mouth. [facility] rosuvastati 2016-10 Yes 2.5mg Take 0.5 U nivers n 5 mg 1-20 tablets by ity of tablet 00:00: mouth. [facility] rosuvastati 2016-10 Yes 2.5mg Take 0.5 U nivers n 5 mg 1-20 tablets by ity of tablet 00:00: mouth. [facility] rosuvastati 2016-10 Yes 2.5mg Take 0.5 U nivers n 5 mg 1-20 tablets by ity of tablet 00:00: mouth. [facility] rosuvastati 2016-10 Yes 2.5mg Take 0.5 U nivers n 5 mg 1-20 tablets by ity of tablet 00:00: mouth. [facility] rosuvastati 2016-10 Yes 2.5mg Take 0.5 U nivers n 5 mg 1-20 tablets by ity of tablet 00:00: mouth. [facility] rosuvastati 2016-10 Yes 10mg Take 10 mg Univers n 5 mg 1-20 by mouth ity of tablet 00:00: daily. [facility] rosuvastati 2016-10 Yes 10mg Take 10 mg Univers n 5 mg 1-20 by mouth ity of tablet 00:00: daily. [facility] rosuvastati 2016-10 Yes 10mg Take 10 mg Univers n 5 mg 1-20 by mouth ity of tablet 00:00: daily. [facility] rosuvastati 2016-10 Yes 10mg Take 10 mg Univers n 5 mg 1-20 by mouth ity of tablet 00:00: daily. [facility] rosuvastati 2016-10 Yes 10mg Take 10 mg Univers n 5 mg 1-20 by mouth ity of tablet 00:00: daily. [facility] rosuvastati 2016-10 Yes 10mg Take 10 mg Univers n 5 mg 1-20 by mouth ity of tablet 00:00: daily. [facility] rosuvastati 2016-10 Yes 10mg Take 10 mg Univers n 5 mg 1-20 by mouth ity of tablet 00:00: daily. [facility] rosuvastati 2016-10 Yes 10mg Take 10 mg Univers n 5 mg 1-20 by mouth ity of tablet 00:00: daily. [facility] rosuvastati 2016-10 Yes 10mg Take 10 mg Univers n 5 mg 1-20 by mouth ity of tablet 00:00: daily. [facility] rosuvastati 2016-10 Yes 10mg Take 10 mg Univers n 5 mg 1-20 by mouth ity of tablet 00:00: daily. [facility] rosuvastati 2016-10 Yes 10mg Take 10 mg Univers n 5 mg 1-20 by mouth ity of tablet 00:00: daily. [facility] rosuvastati 2016-10 Yes 10mg Take 10 mg Univers n 5 mg 1-20 by mouth ity of tablet 00:00: daily. [facility] rosuvastati 2016-10 Yes 10mg Take 10 mg Univers n 5 mg 1-20 by mouth ity of tablet 00:00: daily. [facility] rosuvastati 2016-10 Yes 10mg Take 10 mg Univers n 5 mg 1-20 by mouth ity of tablet 00:00: daily. [facility] rosuvastati 2016-10 Yes 2.5mg Take 0.5 U nivers n 5 mg 1-20 tablets by ity of tablet 00:00: mouth. [facility] rosuvastati 2016-10 Yes 2.5mg Take 0.5 U nivers n 5 mg 1-20 tablets by ity of tablet 00:00: mouth. [place] [facility] rosuvastati 2016-10 Yes 2.5mg Take 0.5 U nivers n 5 mg 1-20 tablets by ity of tablet 00:00: mouth. [place] [facility] rosuvastati 2016-10 Yes 2.5mg Take 0.5 U nivers n 5 mg 1-20 tablets by ity of tablet 00:00: mouth. [place] [facility] rosuvastati 2016-10 Yes 2.5mg Take 0.5 U nivers n 5 mg 1-20 tablets by ity of tablet 00:00: mouth. [place] [facility] rosuvastati 2016-10 Yes 2.5mg Take 0.5 U nivers n 5 mg 1-20 tablets by ity of tablet 00:00: mouth. [place] [facility] rosuvastati 2016-10 Yes 2.5mg Take 0.5 U nivers n 5 mg 1-20 tablets by ity of tablet 00:00: mouth. [place] [facility] tamsulosin 2016-10 Yes TK 1 C PO Un oseas 0.4 mg 24 0-23 QD ity of hr capsule 00:00: [place] [facility] tamsulosin 2016-10 Yes TK 1 C PO Un oseas 0.4 mg 24 0-23 QD ity of hr capsule 00:00: [place] [facility] tamsulosin 2016-10 Yes TK 1 C PO Un oseas 0.4 mg 24 0-23 QD ity of hr capsule 00:00: [place] [facility] tamsulosin 2016-10 Yes TK 1 C PO Un oseas 0.4 mg 24 0-23 QD ity of hr capsule 00:00: [place] [facility] tamsulosin 2016-10 Yes TK 1 C PO Un oseas 0.4 mg 24 0-23 QD ity of hr capsule 00:00: [place] [facility] tamsulosin 2016-10 Yes TK 1 C PO Un oseas 0.4 mg 24 0-23 QD ity of hr capsule 00:00: [place] [facility] tamsulosin 2016-10 Yes TK 1 C PO Un oseas 0.4 mg 24 0-23 QD ity of hr capsule 00:00: [place] [facility] tamsulosin 2016-10 Yes TK 1 C PO Un oseas 0.4 mg 24 0-23 QD ity of hr capsule 00:00: [facility] tamsulosin 2017 Yes TK 1 C PO Un oseas 0.4 mg 24 0-23 QD ity of hr capsule 00:00: [place] [facility] tamsulosin 2017 Yes TK 1 C PO Un oseas 0.4 mg 24 0-23 QD ity of hr capsule 00:00: [place] [facility] tamsulosin 2016-10 Yes TK 1 C PO Un oseas 0.4 mg 24 0-23 QD ity of hr capsule 00:00: [facility] tamsulosin 2017 Yes TK 1 C PO Un oseas 0.4 mg 24 0-23 QD ity of hr capsule 00:00: [place] [facility] tamsulosin 2017 Yes TK 1 C PO Un oseas 0.4 mg 24 0-23 QD ity of hr capsule 00:00: [place] [facility] tamsulosin 2016-10 Yes TK 1 C PO Un oseas 0.4 mg 24 0-23 QD ity of hr capsule 00:00: [place] [facility] tamsulosin 2017 Yes TK 1 C PO Un oseas 0.4 mg 24 0-23 QD ity of hr capsule 00:00: [place] [facility] tamsulosin 2016-10 Yes TK 1 C PO Un oseas 0.4 mg 24 0-23 QD ity of hr capsule 00:00: [place] [facility] tamsulosin 2017 Yes TK 1 C PO Un oseas 0.4 mg 24 0-23 QD ity of hr capsule 00:00: [place] [facility] tamsulosin 2016-10 Yes TK 1 C PO Un oseas 0.4 mg 24 0-23 QD ity of hr capsule 00:00: [place] [facility] tamsulosin 2016-10 Yes TK 1 C PO Un oseas 0.4 mg 24 0-23 QD ity of hr capsule 00:00: [place] [facility] tamsulosin 2016-10 Yes TK 1 C PO Un oseas 0.4 mg 24 0-23 QD ity of hr capsule 00:00: [place] [facility] tamsulosin 2016-10 Yes TK 1 C PO Un oseas 0.4 mg 24 0-23 QD ity of hr capsule 00:00: [place] [facility] tamsulosin 2016-10 Yes TK 1 C PO Un oseas 0.4 mg 24 0-23 QD ity of hr capsule 00:00: [facility] tamsulosin 2017 Yes TK 1 C PO Un oseas 0.4 mg 24 0-23 QD ity of hr capsule 00:00: [facility] tamsulosin 2016-10 Yes TK 1 C PO Un oseas 0.4 mg 24 0-23 QD ity of hr capsule 00:00: [facility] tamsulosin 2016-10 Yes TK 1 C PO Un oseas 0.4 mg 24 0-23 QD ity of hr capsule 00:00: [facility] tamsulosin 2016-10 Yes TK 1 C PO Un oseas 0.4 mg 24 0-23 QD ity of hr capsule 00:00: [facility] tamsulosin 2016-10 Yes TK 1 C PO Un oseas 0.4 mg 24 0-23 QD ity of hr capsule 00:00: [facility] tamsulosin 2016-10 Yes TK 1 C PO Un oseas 0.4 mg 24 0-23 QD ity of hr capsule 00:00: [facility] tamsulosin 2016-10 Yes TK 1 C PO Un oseas 0.4 mg 24 0-23 QD ity of hr capsule 00:00: [facility] tamsulosin 2016-10 Yes TK 1 C PO Un oseas 0.4 mg 24 0-23 QD ity of hr capsule 00:00: [facility] tamsulosin 2016-10 Yes TK 1 C PO Un oseas 0.4 mg 24 0-23 QD ity of hr capsule 00:00: [facility] tamsulosin 2016-10 Yes TK 1 C PO Un oseas 0.4 mg 24 0-23 QD ity of hr capsule 00:00: [facility] tamsulosin 2016-10 Yes TK 1 C PO Un oseas 0.4 mg 24 0-23 QD ity of hr capsule 00:00: [facility] tamsulosin 2016-10 Yes TK 1 C PO Un oseas 0.4 mg 24 0-23 QD ity of hr capsule 00:00: [facility] tamsulosin 2016-10 Yes TK 1 C PO Un oseas 0.4 mg 24 0-23 QD ity of hr capsule 00:00: [facility] Colace 100 2013- Yes Annmarie C 100 mg, 1 Memoria [...] cap, PO, l capsule 14:39: BID, 20 [place] 46 cap, Substituti on Allowed, CAP Colace 100 Yes Annmarie C 100 mg, 1 Memoria mg oral 9-25 Amin cap, PO, l capsule 14:39: BID, 20 [place] 46 cap, Substituti on Allowed, CAP Colace 100 Yes Annmarie C 100 mg, 1 [facility] mg oral 9-25 Amin cap, PO, l capsule 14:39: BID, 20 [place] 46 cap, Substituti on Allowed, CAP Colace 100 Yes Annmarie C 100 mg, 1 Memoria mg oral 9-25 Amin cap, PO, l capsule 14:39: BID, 20 [place] 46 cap, Substituti on Allowed, CAP Colace [...] cap, PO, l capsule 14:39: BID, 20 [place] 46 cap, Substituti on Allowed, CAP Colace 100 Yes Annmarie C 100 mg, 1 Memoria mg oral 9-25 Amin cap, PO, l capsule 14:39: BID, 20 [place] 46 cap, Substituti on Allowed, CAP Colace 100 Yes Annmarie C 100 mg, 1 [facility]oria mg oral 9-25 Amin cap, PO, l capsule 14:39: BID, 20 [place] 46 cap, Substituti on Allowed, CAP Colace 100 Yes Annmarie C 100 mg, 1 Memoria mg oral 9-25 Amin cap, PO, l capsule 14:39: BID, 20 [place] 46 cap, Substituti on Allowed, CAP Robaxin-750 Yes Annmarie C 750 mg, 1 [facility] oral tablet 9-25 Amin tab, PO, l 14:38: QID, PRN, [place] 03 40 tab, As needed for muscle spasms, Substituti on Allowed, TAB Robaxin-750 Yes Annmarie C 750 mg, 1 [facility] oral tablet 9-25 Amin tab, PO, l 14:38: QID, PRN, [place] 03 40 tab, As needed for muscle spasms, Substituti on Allowed, TAB Robaxin-750 Yes Annmarie C 750 mg, 1 [facility] oral tablet 9-25 Amin tab, PO, l 14:38: QID, PRN, [place] 03 40 tab, As needed for muscle spasms, Substituti on Allowed, TAB Robaxin-750 Yes Annmarie C 750 mg, 1 [facility] oral tablet 9-25 Amin tab, PO, l 14:38: QID, PRN, [place] 03 40 tab, As needed for muscle spasms, Substituti on Allowed, TAB Robaxin-750 Yes Annmarie C 750 mg, 1 [facility] oral tablet 9-25 Amin tab, PO, l 14:38: QID, PRN, [place] 03 40 tab, As needed for muscle spasms, Substituti on Allowed, TAB Robaxin-750 Yes Annmarie C 750 mg, 1 [facility] oral tablet 9-25 Amin tab, PO, l 14:38: QID, PRN, [place] 03 40 tab, As needed for muscle spasms, Substituti on Allowed, TAB Robaxin-750 Yes Annmarie C 750 mg, 1 [facility] oral tablet 9-25 Amin tab, PO, l 14:38: QID, PRN, [place] 03 40 tab, As needed for muscle spasms, Substituti on Allowed, TAB Robaxin-750 Yes Annmarie C 750 mg, 1 [facility] oral tablet 9-25 Amin tab, PO, l 14:38: QID, PRN, [place] 03 40 tab, As needed for muscle spasms, Substituti on Allowed, TAB Robaxin-750 Yes Annmarie C 750 mg, 1 [facility] oral tablet 9-25 Amin tab, PO, l 14:38: QID, PRN, [place] 03 40 tab, As needed for muscle spasms, Substituti on Allowed, TAB Robaxin-750 Yes Annmarie C 750 mg, 1 [facility] oral tablet 9-25 Amin tab, PO, l 14:38: QID, PRN, [place] 03 40 tab, As needed for muscle [...] l oral tablet 14:36: 40 tab, as [place] 05 needed for pain, Substituti on Allowed, Maintenanc e Lortab Yes Annmarie C 1 tab, PO, Me moria 7.5/500 9-25 Amin Q6H, PRN, l oral tablet 14:36: 40 tab, as [place] 05 needed for pain, Substituti on Allowed, Maintenanc e Lortab Yes Annmarie C 1 tab, PO, Me moria 7.5/500 9-25 Amin Q6H, PRN, l oral tablet 14:36: 40 tab, as [place] 05 needed for pain, Substituti on Allowed, Maintenanc e Lortab Yes Annmarie C 1 tab, PO, Me moria 7.5/500 9-25 Amin Q6H, PRN, l oral tablet 14:36: 40 tab, as [place] 05 needed for pain, Substituti on Allowed, Maintenanc e Lortab Yes Annmarie C 1 tab, PO, Me moria 7.5/500 9-25 Amin Q6H, PRN, l oral tablet 14:36: 40 tab, as [place] 05 needed for pain, Substituti on Allowed, Maintenanc e Lortab Yes Annmarie C 1 tab, PO, Me moria 7.5/500 9-25 Amin Q6H, PRN, l oral tablet 14:36: 40 tab, as [place] 05 needed for pain, Substituti on Allowed, [...] l oral tablet 14:36: 40 tab, as [place] 05 needed for pain, Substituti on Allowed, Maintenanc e Lortab Yes Annmarie C 1 tab, PO, Me moria 7.5/500 9-25 Amin Q6H, PRN, l oral tablet 14:36: 40 tab, as [place] 05 needed for pain, Substituti on Allowed, [...] Bindal Route: PO, l 14:00: Drug form: [place] 00 TAB, Daily, Dosing Weight 91.42, kg, Start date: 07/22/13 9:00:00, Duration: 30 day, Stop date: 08/20/13 9:00:00 losartan 0 No Meng K 100 mg, 2 Me [...] Bindal Route: PO, l 14:00: Drug form: [place] TAB, Daily, Dosing Weight 91.42, kg, Start [...] 9-25 [place] cap, l 14:00: Route: PO, [place] 00 Drug form: CAP, Daily, Start date: 07/22/13 9:00:00, Duration: 30 day, Stop date: 08/20/13 9:00:00 solifenacin 2012-0 No Meng K 5 mg, Mem oria 9-25 [place] Route: PO, l 14:00: Drug form: [place] 00 TAB, Daily, Dosing Weight 91.42, kg, Start date: 07/22/13 9:00:00, Duration: 30 day, Stop date: 08/20/13 9:00:00 losartan 0 No Meng K 100 mg, 2 Me [...] 30 day, Stop date: 08/20/13 9:00:00 losartan 0 No Meng K 100 mg, 2 Me [...] [place] Route: PO, l 14:00: Drug form: [place] 00 TAB, Daily, Dosing Weight 91.42, kg, [...] [place] Route: PO, l 14:00: Drug form: [place] 00 TAB, Daily, Dosing Weight 91.42, kg, Start date: 07/22/13 9:00:00, Duration: 30 day, Stop date: 08/20/13 9:00:00 losartan 2012-0 No Meng K 100 mg, 2 Me moria 9-25 [place] tab, l 14:00: Route: PO, [place] 00 Drug form: TAB, Daily, Dosing Weight [...] [place] Route: PO, l 14:00: Drug form: [place] 00 TAB, Daily, Dosing Weight 91.42, kg, Start date: 07/22/13 9:00:00, Duration: 30 day, Stop date: 08/20/13 9:00:00 losartan 2012-0 No Meng K 100 mg, 2 Me moria 9-25 [place] tab, l 14:00: Route: PO, [place] 00 Drug form: TAB, Daily, Dosing Weight [...] 9-25 [place] cap, l 14:00: Route: PO, [place] 00 Drug form: CAP, Daily, Start date: 07/22/13 9:00:00, Duration: 30 day, Stop date: 08/20/13 9:00:00 solifenacin 2012-0 No Meng K 5 mg, Mem oria 9-25 [place] Route: PO, l 14:00: Drug form: [place] 00 TAB, Daily, Dosing Weight 91.42, kg, [...] [place] Route: PO, l 14:00: Drug form: [place] 00 TAB, Daily, Dosing Weight 91.42, kg, Start date: 07/22/13 9:00:00, Duration: 30 day, Stop date: 08/20/13 9:00:00 losartan 2012-0 No Meng K 100 mg, 2 Me moria 9-25 [place] tab, l 14:00: Route: PO, [place] 00 Drug form: TAB, Daily, Dosing Weight [...] [place] Route: PO, l 14:00: Drug form: [place] TAB, Daily, Dosing Weight 91.42, kg, Start [...] Isidor Gordon tab, l 02:00: Route: PO, [place] 00 Drug form: TAB, Q12H, Dosing Weight 91.42, kg, Start date: 07/21/13 21:00:00, Duration: 30 day, Stop date: 08/20/13 9:00:00 simvastatin 2012-0 No Meng K 20 mg, 1 Memoria 9-25 [place] tab, l 02:00: Route: PO, [place] 00 Drug form: TAB, Bedtime, Dosing Weight 91.42, kg, Start date: 07/21/13 21:00:00, Duration: 30 day, Stop date: 08/19/13 21:00:00 carvedilol 2012-0 No [place]udi 6.25 mg, 1 Memoria 9-25 Isidor Gordon tab, l 02:00: Route: PO, [place] 00 Drug form: TAB, Q12H, Dosing Weight [...] Isidor Gordon tab, l 02:00: Route: PO, [place] 00 Drug form: TAB, Q12H, Dosing Weight 91.42, kg, Start date: 07/21/13 21:00:00, Duration: 30 day, Stop date: 08/20/13 9:00:00 simvastatin 2012-0 No Meng K 20 mg, 1 Memoria 9-25 [place] tab, l 02:00: Route: PO, [place] 00 Drug form: TAB, Bedtime, Dosing Weight 91.42, kg, Start date: 07/21/13 21:00:00, Duration: 30 day, Stop date: 08/19/13 21:00:00 carvedilol 2013-0 No [place]udi 6.25 mg, 1 Memoria 9-25 Isidor Gordon tab, l 02:00: Route: PO, [place] 00 Drug form: TAB, Q12H, Dosing Weight 91.42, kg, Start date: 07/21/13 21:00:00, Duration: 30 day, Stop date: 08/20/13 9:00:00 simvastatin 2012-0 No Meng K 20 mg, 1 Memoria 9-25 [place] tab, l 02:00: Route: PO, [place] 00 Drug form: TAB, Bedtime, Dosing Weight 91.42, kg, Start date: 07/21/13 21:00:00, Duration: 30 day, Stop date: 08/19/13 21:00:00 carvedilol 2013-0 No [place]udi 6.25 mg, 1 Memoria 9-25 Isidor Gordon tab, l 02:00: Route: PO, [place] 00 Drug form: TAB, Q12H, Dosing Weight 91.42, kg, Start date: 07/21/13 21:00:00, Duration: 30 day, Stop date: 08/20/13 9:00:00 simvastatin 2012-0 No Meng K 20 mg, 1 Memoria 9-25 [place] tab, l 02:00: Route: PO, [place] 00 Drug form: TAB, Bedtime, Dosing Weight 91.42, kg, Start date: 07/21/13 21:00:00, Duration: 30 day, Stop date: 08/19/13 21:00:00 carvedilol 2013-0 No [place]udi 6.25 mg, 1 Memoria 9-25 Isidor Gordon tab, l 02:00: Route: PO, [place] 00 Drug form: TAB, Q12H, Dosing Weight 91.42, kg, Start date: 07/21/13 21:00:00, Duration: 30 day, Stop date: 08/20/13 9:00:00 simvastatin 2013-0 No Meng K 20 mg, 1 Memoria 9-25 [place] tab, l 02:00: Route: PO, [place] 00 Drug form: TAB, Bedtime, Dosing Weight 91.42, kg, Start date: 07/21/13 21:00:00, Duration: 30 day, Stop date: 08/19/13 21:00:00 carvedilol 2013-0 No [place]udi 6.25 mg, 1 Memoria 9-25 Isidor Gordon tab, l 02:00: Route: PO, [place] 00 Drug form: TAB, Q12H, Dosing Weight 91.42, kg, Start date: 07/21/13 21:00:00, Duration: 30 day, Stop date: 08/20/13 9:00:00 simvastatin 2012-0 No Meng K 20 mg, 1 Memoria 9-25 [place] tab, l 02:00: Route: PO, [place] 00 Drug form: TAB, Bedtime, Dosing Weight [...] 9-25 [place] tab, l 02:00: Route: PO, [place] 00 Drug form: TAB, Bedtime, Dosing Weight 91.42, kg, Start date: 07/21/13 21:00:00, Duration: 30 day, Stop date: 08/19/13 21:00:00 carvedilol 2013-0 No [place]udi 6.25 mg, 1 Memoria 9-25 Isidor Gordon tab, l 02:00: Route: PO, [place] 00 Drug form: TAB, Q12H, Dosing Weight 91.42, kg, Start date: 07/21/13 21:00:00, Duration: 30 day, Stop date: 08/20/13 9:00:00 simvastatin 2013-0 No Meng K 20 mg, 1 Memoria 9-25 [place] tab, l 02:00: Route: PO, [place] 00 Drug form: TAB, Bedtime, Dosing Weight 91.42, kg, Start date: 07/21/13 21:00:00, Duration: 30 day, Stop date: 08/19/13 21:00:00 carvedilol 2013-0 No [place]udi 6.25 mg, 1 Memoria 9-25 Isidor Gordon tab, l 02:00: Route: PO, [place] 00 Drug form: TAB, Q12H, Dosing Weight [...] Isidor Gordon tab, l 02:00: Route: PO, [place] 00 Drug form: TAB, Q12H, Dosing Weight 91.42, kg, Start date: 07/21/13 21:00:00, Duration: 30 day, Stop date: 08/20/13 9:00:00 simvastatin 2012-0 No Meng K 20 mg, 1 Memoria 9-25 [place] tab, l 02:00: Route: PO, [place] 00 Drug form: TAB, Bedtime, Dosing Weight 91.42, kg, Start date: 07/21/13 21:00:00, Duration: 30 day, Stop date: 08/19/13 21:00:00 carvedilol 2012-0 No Ch[place]udi 6.25 mg, 1 Memoria 9-25 Isidor Gordon tab, l 02:00: Route: PO, [place] 00 Drug form: TAB, Q12H, Dosing Weight 91.42, kg, Start date: 07/21/13 21:00:00, Duration: 30 day, Stop date: 08/20/13 9:00:00 gabapentin 2013-0 No Meng K 600 mg, 2 Memoria [...] 9-24 [place] cap, l 22:00: Route: PO, [place] 00 Drug form: CAP, BID, Dosing Weight [...] 9-24 [place] cap, l 22:00: Route: PO, [place] 00 Drug form: CAP, BID, Dosing Weight [...] 9-24 [place] cap, l 22:00: Route: PO, [place] 00 Drug form: CAP, BID, Dosing Weight [...] 9-24 [place] cap, l 22:00: Route: PO, [place] 00 Drug form: CAP, BID, Dosing Weight [...] 9-24 [place] cap, l 22:00: Route: PO, [place] 00 Drug form: CAP, BID, Dosing Weight [...] 9-24 [place] cap, l 22:00: Route: PO, [place] 00 Drug form: CAP, BID, Dosing Weight [...] 9-24 [place] cap, l 22:00: Route: PO, [place] 00 Drug form: CAP, BID, Dosing Weight [...] Gordon Route: IM, l 21:05: Drug form: PDR/INJ, PRN, Dosing Weight 91.42, kg, [...] Isidor Gordon 0.08 mL, l 21:05: Route: [place] 00 SUB-Q, Drug form: SOLN, TID-Before Meals, [...] Isidor Gordon 0.08 mL, l 21:05: Route: SUB-Q, Drug form: SOLN, TID-Before Meals, Dosing Weight 91.42, kg, PRN Blood Glucose Results, Start date: 07/21/13 16:05:00, Duration: 30 day, Stop date: 08/20/13 16:04:00 glucagon 2012-0 No [place]udi 1 mg, Yariel mariza 9-24 Isidor Gordon Route: IM, l 21:05: Drug form: [place] 00 PDR/INJ, PRN, Dosing Weight 91.42, kg, [...] Gordon Route: IM, l 21:05: Drug form: [place] 00 PDR/INJ, PRN, Dosing Weight 91.42, kg, [...] Isidor Gordon 0.08 mL, l 21:05: Route: [place] 00 SUB-Q, Drug form: SOLN, TID-Before Meals, [...] Isidor Gordon 0.08 mL, l 21:05: Route: [place] 00 SUB-Q, Drug form: SOLN, TID-Before Meals, Dosing Weight 91.42, kg, PRN Blood Glucose Results, Start date: 07/21/13 16:05:00, Duration: 30 day, Stop date: 08/20/13 16:04:00 glucagon 2012-0 No [place]udi 1 mg, Yariel mariza 9-24 Isidor Gordon Route: IM, l 21:05: Drug form: [place] PDR/INJ, PRN, Dosing Weight 91.42, kg, PRN [...] Gordon Route: IM, l 21:05: Drug form: [place] 00 PDR/INJ, PRN, Dosing Weight 91.42, kg, [...] Gordon Route: IM, l 21:05: Drug form: [place] 00 PDR/INJ, PRN, Dosing Weight 91.42, kg, PRN Blood Glucose Results, Start date: 07/21/13 16:05:00, Duration: 30 day, Stop date: 08/20/13 16:04:00 Dextrose 2012-0 No [place] 25 gm, 50 Memoria 50% Syringe 9-24 Isidor Gordon mL, Route: l 21:05: IVP, Drug [place] 00 Form: INJ, Dosing Weight 91.42, kg, PRN, PRN Blood Glucose Results, Start date: 07/21/13 16:05:00, Duration: 30 day, Stop date: 08/20/13 16:04:00 insulin 2012-0 No [place]udi 8 unit, Mem oria aspart 9-24 Isidor Gordon 0.08 mL, l 21:05: Route: [place] 00 SUB-Q, Drug form: SOLN, TID-Before Meals, Dosing Weight 91.42, kg, PRN Blood Glucose Results, Start date: 07/21/13 16:05:00, Duration: 30 day, Stop date: 08/20/13 16:04:00 glucagon 2012-0 No [place]udi 1 mg, Yariel mariza -24 Isidor Gordon Route: IM, l 21:05: Drug form: [place] 00 PDR/INJ, PRN, Dosing Weight 91.42, kg, PRN Blood Glucose Results, Start date: 07/21/13 16:05:00, Duration: 30 day, Stop date: 08/20/13 16:04:00 Dextrose 2012- No [place] 25 gm, 50 Memoria 50% Syringe - Isidor Gordon mL, Route: l 21:05: IVP, Drug Form: INJ, Dosing Weight 91.42, kg, PRN, PRN Blood Glucose Results, Start date: 07/21/13 16:05:00, Duration: 30 day, Stop date: 08/20/13 16:04:00 insulin 2012-0 No [place]udi 8 unit, Mem oria aspart -24 Isidor Gordon 0.08 mL, l 21:05: Route: [place] 00 SUB-Q, Drug form: SOLN, TID-Before Meals, Dosing Weight 91.42, kg, PRN Blood Glucose Results, Start date: 07/21/13 16:05:00, Duration: 30 day, Stop date: 08/20/13 16:04:00 cefazolin No Meng K 1 gm, Memor ia (SCIP) 07-21 [place] Route: l 21:00: IVPB, Drug form: INJ, Q8H, Dosing Weight 91.42, kg, Start date: 07/21/13 16:00:00, Duration: 1 doses or times, Stop date: 07/21/13 16:00:00 cefazolin 2012-0 No Meng K 1 gm, Memor ia (SCIP) 07-21 [place] Route: l 21:00: IVPB, Drug [place] 00 form: INJ, Q8H, Dosing Weight 91.42, kg, Start date: 07/21/13 16:00:00, Duration: 1 doses or times, Stop date: 07/21/13 16:00:00 cefazolin 2012- No Meng K 1 gm, Memor ia (SCIP) 07-21 [place] Route: l 21:00: IVPB, Drug [place] 00 form: INJ, Q8H, Dosing Weight 91.42, kg, Start date: 07/21/13 16:00:00, Duration: 1 doses or times, Stop date: 07/21/13 16:00:00 cefazolin 2012- No Meng K 1 gm, Memor ia (SCIP) 07-21 [place] Route: l 21:00: IVPB, Drug [place] 00 form: INJ, Q8H, Dosing Weight 91.42, kg, Start date: 07/21/13 16:00:00, Duration: 1 doses or times, Stop date: 07/21/13 16:00:00 cefazolin 2012- No Meng K 1 gm, Memor ia (SCIP) 07-21 [place] Route: l 21:00: IVPB, Drug [place] 00 form: INJ, Q8H, Dosing Weight 91.42, [...] 07-21 [place] Route: l 21:00: IVPB, Drug [place] 00 form: INJ, Q8H, Dosing Weight 91.42, kg, Start date: 07/21/13 16:00:00, Duration: 1 doses or times, Stop date: 07/21/13 16:00:00 cefazolin 0 No Meng K 1 gm, Memor ia (SCIP) 07-21 [place] Route: l 21:00: IVPB, Drug [place] 00 form: INJ, Q8H, Dosing Weight 91.42, kg, Start date: 07/21/13 16:00:00, Duration: 1 doses or times, Stop date: 07/21/13 16:00:00 cefazolin No Meng K 1 gm, Memor ia (SCIP) 07-21 [place] Route: l 21:00: IVPB, Drug [place] 00 form: INJ, Q8H, Dosing Weight 91.42, kg, Start date: 07/21/13 16:00:00, Duration: 1 doses or times, Stop date: 07/21/13 16:00:00 cefazolin No Meng K 1 gm, Memor ia (SCIP) 07-21 [place] Route: l 21:00: IVPB, Drug [place] 00 form: INJ, Q8H, Dosing Weight 91.42, kg, Start date: 07/21/13 16:00:00, Duration: 1 doses or times, Stop date: 07/21/13 16:00:00 cefazolin 0 No Meng K 1 gm, Memor ia (SCIP) 07-21 [place] Route: l 21:00: IVPB, Drug [place] 00 form: INJ, Q8H, Dosing Weight 91.42, kg, Start date: 07/21/13 16:00:00, Duration: 1 doses or times, Stop date: 07/21/13 16:00:00 cefazolin 0 No Meng K 1 gm, Memor ia (SCIP) 07-21 [place] Route: l 21:00: IVPB, Drug [place] 00 form: INJ, Q8H, Dosing Weight 91.42, kg, Start date: 07/21/13 16:00:00, Duration: 1 doses or times, Stop date: 07/21/13 16:00:00 Cepastat 2012-0 No Meng K 1 Darren de leon 07-21 [place] Route: l 20:37: MUCOUS [place] 00 MEM, PRN, Drug form: CHRIS, PRN [...] emoria 07-21 [place] Route: l 20:37: MUCOUS [place] 00 MEM, PRN, Drug form: CHRIS, PRN Sore Throat, Start date: 07/21/13 15:37:00, Duration: 30 day, Stop date: 08/20/13 15:36:00 Cepastat No Meng K 1 loDarren faye emoria 07-21 [place] Route: l 20:37: MUCOUS [place] 00 MEM, PRN, Drug form: CHRIS, PRN Sore Throat, Start date: 07/21/13 15:37:00, Duration: 30 day, Stop date: 08/20/13 15:36:00 Cepastat No Meng K 1 lozenDarren mendoza emoria 07-21 [place] Route: l 20:37: MUCOUS [place] 00 MEM, PRN, Drug form: CHRIS, PRN Sore Throat, Start date: 07/21/13 15:37:00, Duration: 30 day, Stop date: 08/20/13 15:36:00 Cepastat No Meng K 1 loDarren faye emoria 07-21 [place] Route: l 20:37: [...] emoria 07-21 [place] Route: l 20:37: MUCOUS [place] 00 MEM, PRN, Drug form: CHRIS, PRN Sore Throat, Start date: 07/21/13 15:37:00, Duration: 30 day, Stop date: 08/20/13 15:36:00 Cepastat No Meng K 1 Darren de leonria 07-21 [place] Route: l 20:37: MUCOUS [place] 00 MEM, PRN, Drug form: CHRIS, PRN Sore Throat, Start date: 07/21/13 15:37:00, Duration: 30 day, Stop date: 08/20/13 15:36:00 Cepastat No Meng K 1 Darren de leon emoria 07-21 [place] Route: l 20:37: MUCOUS [place] 00 MEM, PRN, Drug form: CHRIS, PRN Sore Throat, Start date: 07/21/13 15:37:00, Duration: 30 day, Stop date: 08/20/13 15:36:00 cefazolin No Meng K 2 gm, 100 M emoria (SCIP) 9-24 [place] mL, Route: l 20:30: IVPB, Drug [place] 00 form: INJ, ABXQ8H, Dosing Weight 91.42, kg, Start date: 07/21/13 15:30:00, Duration: 3 doses or times, Stop date: 07/22/13 7:30:00 [facility] 2012- No [facility] [place] mL, Route: l 20:30: IVPB, Drug [place] 00 form: INJ, ABXQ8H, Dosing Weight 91.42, kg, Start date: 07/21/13 15:30:00, Duration: 3 doses or times, Stop date: 07/22/13 7:30:00 cefazolin 2012- No Meng K 2 gm, 100 M [facility]) -24 [place] mL, Route: l 20:30: IVPB, Drug [place] 00 form: INJ, ABXQ8H, Dosing Weight 91.42, kg, Start date: 07/21/13 15:30:00, Duration: 3 doses or times, Stop date: 07/22/13 7:30:00 cefazolin No Meng K 2 gm, 100 M [facility]) -24 [place] mL, Route: l 20:30: IVPB, Drug [place] 00 form: INJ, ABXQ8H, Dosing Weight 91.42, kg, Start date: 07/21/13 15:30:00, Duration: 3 doses or times, Stop date: 07/22/13 7:30:00 cefazolin 2012-0 No Meng K 2 gm, [facility] [place] mL, Route: l 20:30: IVPB, Drug [place] 00 form: INJ, ABXQ8H, Dosing Weight 91.42, kg, Start date: 07/21/13 15:30:00, Duration: 3 doses or times, Stop date: 07/22/13 7:30:00 cefazolin 2012-0 No [facility] K 2 [facility], [facility] [place] mL, Route: l 20:30: IVPB, Drug [place] 00 form: INJ, ABXQ8H, Dosing Weight 91.42, kg, Start date: 07/21/13 15:30:00, Duration: 3 doses or times, Stop date: 07/22/13 7:30:00 cefazolin 2012-0 No Meng K 2 gm, [facility] [place] mL, Route: l 20:30: IVPB, Drug [place] 00 form: INJ, ABXQ8H, Dosing Weight 91.42, kg, Start date: 07/21/13 15:30:00, Duration: 3 doses or times, Stop date: 07/22/13 7:30:00 cefazolin 2012-0 No Meng K 2 gm, [facility] [place] mL, Route: l 20:30: IVPB, Drug [place] 00 form: INJ, ABXQ8H, Dosing Weight 91.42, kg, Start date: 07/21/13 15:30:00, Duration: 3 doses or times, Stop date: 07/22/13 7:30:00 cefazolin 2012-0 No Meng K 2 gm, [facility] [place] mL, Route: l 20:30: IVPB, Drug [place] 00 form: INJ, ABXQ8H, Dosing Weight 91.42, kg, Start date: 07/21/13 15:30:00, Duration: 3 doses or times, Stop date: 07/22/13 7:30:00 cefazolin 2012-0 No Meng K 2 gm, [facility] [place] mL, Route: l 20:30: IVPB, Drug [place] 00 form: INJ, ABXQ8H, Dosing Weight 91.42, kg, Start date: 07/21/13 15:30:00, Duration: 3 doses or times, Stop date: 07/22/13 7:30:00 cefazolin 2012-0 No [facility] K 2 gm, [facility] 9-24 [place] mL, Route: l 20:30: IVPB, Drug [place] 00 form: INJ, ABXQ8H, Dosing Weight 91.42, kg, Start date: 07/21/13 15:30:00, Duration: 3 doses or times, Stop date: 07/22/13 7:30:00 cefazolin 2012-0 No Meng K 2 gm, 100 M emoria (SCIP) 9-24 [place] mL, Route: l 20:30: IVPB, Drug [place] 00 form: INJ, ABXQ8H, Dosing Weight 91.42, kg, Start date: 07/21/13 15:30:00, Duration: 3 doses or times, Stop date: 07/22/13 7:30:00 dexamethaso 2012-0 No Meng K 4 mg, 1 M emoria ne 9-24 [place] mL, Route: l 19:00: IVP, Drug [place] 00 form: INJ, ONCE, Start date: 07/21/13 14:00:00, Stop date: 07/21/13 14:00:00 dexamethaso 2012-0 No Meng K 4 mg, 1 M emoria ne 9-24 [place] mL, Route: l 19:00: IVP, Drug [place] 00 form: INJ, ONCE, Start date: 07/21/13 14:00:00, Stop date: 07/21/13 14:00:00 dexamethaso 2012-0 No Meng K 4 mg, 1 M emoria ne 9-24 [place] mL, Route: l 19:00: IVP, Drug [place] 00 form: INJ, ONCE, Start date: 07/21/13 14:00:00, Stop date: 07/21/13 14:00:00 dexamethaso 2012-0 No Meng K 4 mg, 1 M emoria ne 9-24 [place] mL, Route: l 19:00: IVP, Drug [place] 00 form: INJ, ONCE, Start date: 07/21/13 14:00:00, Stop date: 07/21/13 14:00:00 dexamethaso 2012-0 No Meng K 4 mg, 1 M emoria ne 9-24 [place] mL, Route: l 19:00: IVP, Drug [place] 00 form: INJ, ONCE, Start date: 07/21/13 14:00:00, Stop date: 07/21/13 14:00:00 dexamethaso 2012-0 No Meng K 4 mg, 1 M emoria ne 9-24 [place] mL, Route: l 19:00: IVP, Drug [place] 00 form: INJ, ONCE, Start date: 07/21/13 14:00:00, Stop date: 07/21/13 14:00:00 dexamethaso 2012-0 No Meng K 4 mg, 1 M emoria ne 9-24 [place] mL, Route: l 19:00: IVP, Drug [place] 00 form: INJ, ONCE, Start date: 07/21/13 14:00:00, Stop date: 07/21/13 14:00:00 dexamethaso 2012-0 No Meng K 4 mg, 1 M emoria ne 9-24 [place] mL, Route: l 19:00: IVP, Drug [place] 00 form: INJ, ONCE, Start date: 07/21/13 14:00:00, Stop date: 07/21/13 14:00:00 dexamethaso 2012-0 No Meng K 4 mg, 1 M emoria ne 9-24 [place] mL, Route: l 19:00: IVP, Drug [place] 00 form: INJ, ONCE, Start date: 07/21/13 14:00:00, Stop date: 07/21/13 14:00:00 dexamethaso 2012-0 No Meng K 4 mg, 1 M emoria ne 9-24 [place] mL, Route: l 19:00: IVP, Drug [place] 00 form: INJ, ONCE, Start date: 07/21/13 [...] 9-24 B[place] Route: l 17:00: IVP, Q6H, [place] Dosing Weight 91.42, kg, Start date: 07/21/13 12:00:00, Duration: 30 day, Stop date: 08/20/13 6:00:00 ketorolac 2012-0 No Meng K 30 mg, 1 Me moria 9-24 [place] mL, Route: l 17:00: IV, Drug [place] 00 form: INJ, Q6H, Dosing Weight 91.42, kg, Start date: 07/21/13 12:00:00, Duration: 4 day, Stop date: 07/25/13 6:00:00 dexamethaso 2012-0 No Meng K 4 mg, Mem oria ne 9-24 [place] Route: l 17:00: IVP, Q6H, [place] Dosing Weight 91.42, kg, Start date: 07/21/13 12:00:00, Duration: 30 day, Stop date: 08/20/13 6:00:00 ketorolac 2012-0 No Meng K 30 mg, 1 Me moria 9-24 [place] mL, Route: l 17:00: IV, Drug [place] 00 form: INJ, Q6H, Dosing Weight 91.42, [...] B[place] mL, Route: l 17:00: IV, Drug [place] form: INJ, Q6H, Dosing Weight 91.42, kg, Start date: 07/21/13 12:00:00, Duration: 4 day, Stop date: 07/25/13 6:00:00 dexamethaso 2013-0 No Meng K 4 mg, Mem oria ne 9-24 [place] Route: l 17:00: IVP, Q6H, [place] 00 Dosing Weight 91.42, kg, Start date: [...] 9-24 B[place] Route: l 17:00: IVP, Q6H, [place] 00 Dosing Weight 91.42, kg, Start date: [...] 9-24 [place] Route: l 17:00: IVP, Q6H, [place] 00 Dosing Weight 91.42, kg, Start date: [...] 30 day, Stop date: 08/20/13 6:00:00 flumazenil 2013-0 No [place] 0.2 mg, 2 M emoria -24 Bud mL, Route: l 16:14: Kyle IVP, Drug Yamilex nn 00 form: INJ, PRN, Dosing Weight 91.42, kg, PRN Benzodiaze pine Reversal, Initial dose, Start date: 07/21/13 11:14:00, Duration: 30 day, Stop date: 08/20/13 11:13:00 hydromorpho No [place] 0.5 mg, Me moria ne -24 Bud 0.5 mL, l 16:14: Kyle Route: [place] 00 IVP, Drug form: INJ, Q5Min, Dosing [...] Bud 0.1 mL, l 16:14: Kyle Route: [place] 00 IVP, Drug form: INJ, Q2MIN, Dosing [...] IV, l INTRAVENOUS 16:14: Kyle Drug form: [place] solution 00 INJ, ONCE, Dosing Weight 91.42, [...] Bud 0.5 mL, l 16:14: Kyle Route: [place] IVP, Drug form: INJ, Q5Min, Dosing Weight 91.42, kg, PRN Pain Score 7-10, Start date: 07/21/13 11:14:00, Duration: 5 doses or times, Stop date: Limited # of times naloxone 2012- No [place] 0.04 mg, Yariel mariza 9-24 Bud 0.1 mL, l 16:14: Kyle Route: [place] 00 IVP, Drug form: INJ, Q2MIN, Dosing [...] IV, l INTRAVENOUS 16:14: Kyle Drug form: [place] solution 00 INJ, ONCE, Dosing Weight 91.42, [...] Bud 0.5 mL, l 16:14: Kyle Route: [place] 00 IVP, Drug form: INJ, Q5Min, Dosing Weight 91.42, kg, PRN Pain Score 7-10, Start date: 07/21/13 11:14:00, Duration: 5 doses or times, Stop date: Limited # of times naloxone No [place] 0.04 mg, Yariel mariza -24 Bud 0.1 mL, l 16:14: Kyle Route: [place] 00 IVP, Drug form: INJ, Q2MIN, Dosing [...] Bud 0.5 mL, l 16:14: Kyle Route: [place] 00 IVP, Drug form: INJ, Q5Min, Dosing [...] No [place] 0.2 mg, 2 M emoria 07-21 Bud mL, Route: l 16:14: Kyle IVP, Drug Yamilex nn 00 form: INJ, PRN, Dosing Weight 91.42, kg, PRN Benzodiaze pine Reversal, Initial dose, Start date: 07/21/13 11:14:00, Duration: 30 day, Stop date: 08/20/13 11:13:00 hydromorpho No [place] 0.5 mg, Me moria ne - Bud 0.5 mL, l 16:14: Kyle Route: [place] 00 IVP, Drug form: INJ, Q5Min, Dosing Weight 91.42, kg, PRN Pain Score 7-10, Start date: 07/21/13 11:14:00, Duration: 5 doses or times, Stop date: Limited # of times naloxone No [place] 0.04 mg, Yariel mariza 07-21 Bud 0.1 mL, l 16:14: Kyle Route: [place] 00 IVP, Drug form: INJ, Q2MIN, Dosing [...] 30 day, Stop date: 08/20/13 11:13:00 hydromorpho 0 No [place] 0.5 mg, Me moria ne 9-24 Bud 0.5 mL, l 16:14: Kyle Route: [place] 00 IVP, Drug form: INJ, Q5Min, Dosing [...] IV, l INTRAVENOUS 16:14: Kyle Drug form: [place] solution 00 INJ, ONCE, Dosing Weight 91.42, kg, PRN Pain Score 4-6, Start date: 07/21/13 11:14:00, Duration: 1 doses or times, Stop date: Limited # of times, Infuse over 15 minutes (for patient weight 50 kg or greater)In fuse over 15 minutes (for patient weight 50 kg or greater) flumazenil No [place] 0.2 mg, 2 M emoria 9-24 Bdu mL, Route: l 16:14: Kyle IVP, Drug [...] [place] 1,000 mg, Memoria en-10 mg/mL 07-21 Ubd Route: IV, l INTRAVENOUS 16:14: Kyle Drug [...] Bud 0.5 mL, l 16:14: Kyle Route: [place] 00 IVP, Drug form: INJ, Q5Min, Dosing [...] Bud 0.1 mL, l 16:14: Kyle Route: [place] 00 IVP, Drug form: INJ, Q2MIN, Dosing [...] Stop date: Limited # of times naloxone 2013-0 No [place] 0.04 mg, Yariel mariza 07-21 Bud 0.1 mL, l 16:14: Kyle Route: [place] 00 IVP, Drug form: INJ, Q2MIN, Dosing [...] IV, l INTRAVENOUS 16:14: Kyle Drug form: [place] solution 00 INJ, ONCE, Dosing Weight 91.42, kg, PRN Pain Score 4-6, Start date: 07/21/13 11:14:00, Duration: 1 doses or times, Stop date: Limited # of times, Infuse over 15 minutes (for patient weight 50 kg or greater)In fuse over 15 minutes (for patient weight 50 kg or greater) acetaminoph No Meng K 650 mg, 2 Memoria en 07-21 Bindal tab, l 16:08: Route: PO, Adam 00 Drug form: TAB, Q4H, Dosing Weight 91.42, kg, PRN Pain, Start date: 07/21/13 11:08:00, Duration: 30 day, Stop date: 08/20/13 11:07:00 Cepacol 2012-0 No Meng K 1 lozenge, Me moria Lozenge 07-21 Bindal Route: PO, l 16:08: PRN, PRN [place] 00 Sore Throat, Start date: 07/21/13 11:08:00, [...] Bindal mL, Route: l 16:08: IM, Drug [place] 00 form: INJ, Q4H, Dosing Weight 91.42, [...] 30 day, Stop date: 08/20/13 11:07:00 meperidine 2012-0 No Meng K 100 mg, 2 Memoria 9-24 Bindal mL, Route: l 16:08: IM, Drug Adam form: INJ, Q4H, Dosing Weight 91.42, kg, [...] methocarbam No Meng K 750 mg, M lyudmilaria ol + Sodium -24 Bindal 7.5 mL, l Chloride 16:08: Route: IV, Her culp 0.9% IV 100 00 Drug form: mL INJ, Q6H, Dosing Weight 91.42, kg, PRN Muscle Spasms, Start date: 07/21/13 11:08:00, Duration: 30 day, Stop date: 08/20/13 11:07:00 [place] 2012- No Meng K 1 tab, Memoria 7.5/325 -24 Bindal Route: PO, l oral tablet 16:08: Drug Form: Adam 00 TAB, Dosing Weight 91.42, kg, Q4H, PRN Pain, Start date: 07/21/13 11:08:00, Duration: 30 day, Stop date: 08/20/13 11:07:00 1/2NS + KCL No Meng K 1,000 mL, [facility] 20mEq/L 9-24 Bindal Rate: 75 l 1000ml 16:08: ml/hr, [place] ([facility]) 00 Infuse 1,000 mL over: 13.3 hr, Route: IV, Dosing Weight 91.42 kg, Total Volume: 1,000, Start date: 07/21/13 11:08:00, Duration: 30 day, Stop date: 08/20/13 11:07:00 acetaminoph 2012- No Meng K 650 mg, 2 [facility] en - Bindal tab, l 16:08: Route: PO, [place] 00 Drug form: TAB, Q4H, Dosing Weight 91.42, kg, PRN Pain, Start date: 07/21/13 11:08:00, Duration: 30 day, Stop date: 08/20/13 11:07:00 Cepacol No Meng K 1 lozenge, Me moria Lozenge 07-21 Bindal Route: PO, l 16:08: PRN, PRN [place] 00 Sore Throat, Start date: 07/21/13 11:08:00, [...] 30 day, Stop date: 08/20/13 11:07:00 meperidine 2012-0 No Meng K 100 mg, 2 Memoria [...] 9-24 Bindal tab, l 16:08: Route: PO, [place] 00 Drug form: ECTAB, Daily, Dosing Weight 91.42, kg, PRN Constipati on, Start date: 07/21/13 11:08:00, Duration: 30 day, Stop date: 08/20/13 11:07:00 methocarbam No Meng K 750 mg, 1 [facility]oria ol 9-24 Bindal tab, l 16:08: Route: PO, [place] 00 Drug form: TAB, Q6H, Dosing Weight 91.42, kg, PRN Muscle Spasms, Start date: 07/21/13 11:08:00, Duration: 30 day, Stop date: 08/20/13 11:07:00 methocarbam No Meng K 750 mg, M lyudmilaria ol + Sodium 9-24 Bindal 7.5 mL, l Chloride 16:08: Route: IV, Her culp 0.9% IV 100 00 Drug form: mL INJ, Q6H, Dosing Weight 91.42, kg, PRN Muscle Spasms, Start date: 07/21/13 11:08:00, Duration: 30 day, Stop date: 08/20/13 11:07:00 [place] No Meng K 1 tab, [facility] 7.5/325 [...] 30 day, Stop date: 08/20/13 11:07:00 acetaminoph 0 No Meng K 650 mg, 2 Memoria [...] No Meng K 30 mL, [facility] Advanced -24 Bindal Route: PO, l Regular 16:08: Drug Form: Herm billie Strength 00 SUSP, SUSP Dosing Weight 91.42, kg, Q4H, PRN Indigestio n, Start date: 07/21/13 11:08:00, Duration: 30 day, Stop date: 08/20/13 11:07:00 Phenergan No Meng K 25 mg, 1 Me moria -24 Bindal mL, Route: l 16:08: IM, Drug [place] form: INJ, Q4H, Dosing Weight 91.42, kg, [...] methocarbam 0 No Meng K 750 mg, M emoria ol + Sodium 9-24 Bindal 7.5 mL, l Chloride 16:08: Route: IV, Her culp 0.9% IV 100 00 Drug form: mL INJ, Q6H, Dosing Weight 91.42, kg, PRN Muscle Spasms, Start date: 07/21/13 11:08:00, Duration: 30 day, Stop date: 08/20/13 11:07:00 [place] No Meng K 1 tab, [facility] 7.5/325 07-21 Bindal Route: PO, l oral tablet 16:08: Drug Form: [place] 00 TAB, Dosing Weight 91.42, kg, Q4H, PRN Pain, Start date: 07/21/13 11:08:00, Duration: 30 day, Stop date: 08/20/13 11:07:00 1/2NS + KCL No Meng K 1,000 mL, [facility] 20mEq/L 07-21 Bindal Rate: 75 l 1000ml 16:08: ml/hr, [place] ([facility]) 00 Infuse 1,000 mL over: 13.3 [...] Bindal Route: PO, l 16:08: PRN, PRN [place] Sore Throat, Start date: 07/21/13 11:08:00, Duration: 30 day, Stop date: 08/20/13 11:07:00 Maalox No Meng K 30 mL, [facility] Advanced 07-21 Bindal Route: PO, l Regular 16:08: Drug Form: Herm billie Strength 00 SUSP, SUSP Dosing Weight 91.42, kg, Q4H, PRN Indigestio n, Start date: 07/21/13 11:08:00, Duration: 30 day, Stop date: 08/20/13 11:07:00 Phenergan 2013-0 No Meng K 25 mg, 1 Me [...] l tablet 16:08: Route: PO, Yamilex nn Drug form: TAB, Q6H, Dosing Weight 91.42, [...] Duration: 30 day, Stop date: 08/20/13 11:07:00 [place] 2012-0 No Meng K 1 tab, [facility] 7.5/325 24 Bindal Route: PO, l oral tablet 16:08: [...] 08/20/13 11:07:00 acetaminoph 2012-0 No Meng K 650 mg, 2 [facility] en -24 Bindal tab, l 16:08: Route: PO, [place] 00 Drug form: TAB, Q4H, Dosing Weight 91.42, kg, PRN Pain, Start date: 07/21/13 11:08:00, Duration: 30 day, Stop date: 08/20/13 11:07:00 Cepacol 2012- No Meng K 1 lozenge, Me moria Lozenge 24 Bindal Route: PO, l 16:08: PRN, PRN [place] 00 Sore Throat, Start date: 07/21/13 11:08:00, [...] Bindal mL, Route: l 16:08: IM, Drug [place] 00 form: INJ, Q4H, Dosing Weight 91.42, [...] 9-24 B[place]al cap, l 16:08: Route: PO, [place] 00 Drug form: CAP, Bedtime, Dosing Weight [...] 9-24 Bindal tab, l 16:08: Route: PO, [place] 00 Drug form: TAB, Q6H, Dosing Weight 91.42, kg, PRN Muscle Spasms, Start date: 07/21/13 11:08:00, Duration: 30 day, Stop date: 08/20/13 11:07:00 methocarbam No Meng K 750 mg, M issa ol + Sodium 9-24 Bindal 7.5 mL, l Chloride 16:08: Route: IV, Her culp 0.9% IV 100 00 Drug form: mL INJ, Q6H, Dosing Weight 91.42, kg, PRN Muscle Spasms, Start date: 07/21/13 11:08:00, Duration: 30 day, Stop date: 08/20/13 11:07:00 [place] No Meng K 1 tab, [facility] 7.5/325 9-24 Bindal Route: PO, l oral tablet 16:08: Drug Form: [place] TAB, Dosing Weight 91.42, kg, Q4H, PRN [...] Bindal Rate: 75 l 1000ml 16:08: ml/hr, [place] ([facility]) 00 Infuse 1,000 mL over: 13.3 hr, Route: IV, Dosing Weight 91.42 kg, Total Volume: 1,000, Start date: 07/21/13 11:08:00, Duration: 30 day, Stop date: 08/20/13 11:07:00 acetaminoph 2012- No Meng K 650 mg, 2 [facility] en - Bindal tab, l 16:08: Route: PO, [place] 00 Drug form: TAB, Q4H, Dosing Weight 91.42, kg, PRN Pain, Start date: 07/21/13 11:08:00, Duration: 30 day, Stop date: 08/20/13 11:07:00 Cepacol 2012- No Meng K 1 lozenge, Me moria Lozenge 07-21 Bindal Route: PO, l 16:08: PRN, PRN [place] Sore Throat, Start date: 07/21/13 11:08:00, Duration: [...] Bindal mL, Route: l 16:08: IM, Drug [place] 00 form: INJ, Q4H, Dosing Weight 91.42, kg, PRN See Nurse's Notes, Start date: 07/21/13 11:08:00, Duration: 30 day, Stop date: 08/20/13 11:07:00, pain give with meperidine Ultram 50 No Meng K 100 mg, 2 M emoria mg oral 24 Bindal tab, l tablet 16:08: Route: PO, [...] Meng K 4 mg, 2 Memori a -24 Bindal mL, Route: l 16:08: IV, Drug form: INJ, Q6H, Dosing Weight 91.42, kg, PRN Nausea & Vomiting, Start date: 07/21/13 11:08:00, Duration: 30 day, Stop date: 08/20/13 11:07:00, nausea/vom iting temazepam No Meng K 30 mg, 1 Me moria 9-24 Bindal cap, l 16:08: Route: PO, [place] 00 Drug form: CAP, Bedtime, Dosing Weight 91.42, kg, PRN Sleep, Start date: 07/21/13 11:08:00, Duration: 30 day, Stop date: 08/20/13 11:07:00 bisacodyl No Meng K 10 mg, 2 Me moria 9-24 Bindal tab, l 16:08: Route: PO, [place] 00 Drug form: ECTAB, Daily, Dosing Weight 91.42, kg, PRN Constipati on, Start date: 07/21/13 11:08:00, Duration: 30 day, Stop date: 08/20/13 11:07:00 methocarbam No Meng K 750 mg, 1 Memoria ol 9-24 Bindal tab, l 16:08: Route: PO, [place] 00 Drug form: TAB, Q6H, Dosing Weight [...] Duration: 30 day, Stop date: 08/20/13 11:07:00 [place] 2012-0 No Meng K 1 tab, [facility] 7.5/325 07-21 Bindal Route: PO, l oral tablet 16:08: Drug Form: [place] 00 TAB, Dosing Weight 91.42, kg, Q4H, [...] Bindal mL, Route: l 16:08: IM, Drug [place] 00 form: INJ, Q4H, Dosing Weight 91.42, kg, PRN See Nurse's Notes, Start date: 07/21/13 11:08:00, Duration: 30 day, Stop date: 08/20/13 11:07:00, pain give with meperidine Ultram 50 2012-0 No Meng K 100 mg, 2 M [...] mL, Route: l 16:08: IM, Drug [place] form: INJ, Q4H, Dosing Weight 91.42, kg, PRN Pain, Start date: 07/21/13 11:08:00, Duration: 4 day, Stop date: 07/25/13 11:07:00 Zofran 2012-0 No Meng K 4 mg, 2 Memori a 9-24 Bind[place] mL, Route: l 16:08: IV, Drug [place] form: INJ, Q6H, Dosing Weight 91.42, kg, PRN Nausea & Vomiting, Start date: 07/21/13 11:08:00, Duration: 30 day, Stop date: 08/20/13 11:07:00, nausea/vom iting temazepam 2012-0 No Meng K 30 mg, 1 Me moria 9-24 Bindal cap, l 16:08: Route: PO, [place] 00 Drug form: CAP, Bedtime, Dosing Weight 91.42, kg, PRN Sleep, Start date: 07/21/13 11:08:00, Duration: 30 day, Stop date: 08/20/13 11:07:00 bisacodyl 2012- No Meng K 10 mg, 2 Me moria 9-24 Bindal tab, l 16:08: Route: PO, [place] Drug form: ECTAB, Daily, Dosing Weight 91.42, kg, PRN Constipati on, Start date: 07/21/13 11:08:00, Duration: 30 day, Stop date: 08/20/13 11:07:00 methocarbam 2012-0 No Meng K 750 mg, 1 Memoria ol 9-24 Bindal tab, l 16:08: Route: PO, [place] 00 Drug form: TAB, Q6H, Dosing Weight [...] Duration: 30 day, Stop date: 08/20/13 11:07:00 [place] 2012- No Meng K 1 tab, [facility] 7.5/325 9-24 Bindal Route: PO, l oral tablet 16:08: Drug Form: [place] 00 TAB, Dosing Weight 91.42, kg, Q4H, [...] 07-21 Bindal tab, l 16:08: Route: PO, [place] 00 Drug form: TAB, Q4H, Dosing Weight [...] Bindal mL, Route: l 16:08: IM, Drug [place] 00 form: INJ, Q4H, Dosing Weight 91.42, [...] 9-24 Bindal tab, l 16:08: Route: PO, [place] 00 Drug form: ECTAB, Daily, Dosing Weight 91.42, kg, PRN Constipati on, Start date: 07/21/13 11:08:00, Duration: 30 day, Stop date: 08/20/13 11:07:00 methocarbam 2012-0 No Meng K 750 mg, 1 Memoria ol 9-24 Bindal tab, l 16:08: Route: PO, [place] 00 Drug form: TAB, Q6H, Dosing Weight [...] Duration: 30 day, Stop date: 08/20/13 11:07:00 [place] No Meng K 1 tab, [facility] 7.5/325 07-21 Bindal Route: PO, l oral tablet 16:08: Drug Form: [place] 00 TAB, Dosing Weight 91.42, kg, Q4H, PRN Pain, Start date: 07/21/13 11:08:00, Duration: 30 day, Stop date: 08/20/13 11:07:00 1/2NS + KCL No Meng K 1,000 mL, [facility] 20mEq/L 07-21 Bindal Rate: 75 l 1000ml 16:08: ml/hr, [place] ([facility]) 00 Infuse 1,000 mL over: 13.3 hr, Route: IV, Dosing Weight 91.42 kg, Total Volume: 1,000, Start date: 07/21/13 11:08:00, Duration: 30 day, Stop date: 08/20/13 11:07:00 acetaminoph No Meng K 650 mg, 2 [facility] en 07-21 Bindal tab, l 16:08: Route: PO, [place] 00 Drug form: TAB, Q4H, Dosing Weight 91.42, kg, PRN Pain, Start date: 07/21/13 11:08:00, Duration: 30 day, Stop date: 08/20/13 11:07:00 Cepacol No Meng K 1 lozenge, Me moria Lozenge 07-21 Bindal Route: PO, l 16:08: PRN, PRN [place] Sore Throat, Start date: 07/21/13 11:08:00, Duration: [...] Bindal mL, Route: l 16:08: IM, Drug [place] 00 form: INJ, Q4H, Dosing Weight 91.42, [...] Bindal mL, Route: l 16:08: IM, Drug [place] 00 form: INJ, Q4H, Dosing Weight 91.42, [...] Duration: 30 day, Stop date: 08/20/13 11:07:00 [place] 2012-0 No Meng K 1 tab, [facility]oria [...] 07-21 Bindal tab, l 16:08: Route: PO, [place] 00 Drug form: TAB, Q4H, Dosing Weight 91.42, kg, PRN Pain, Start date: 07/21/13 11:08:00, Duration: 30 day, Stop date: 08/20/13 11:07:00 Cepacol No Meng K 1 lozenge, Me moria Lozenge 07-21 Bindal Route: PO, l 16:08: PRN, PRN [place] Sore Throat, Start date: 07/21/13 11:08:00, Duration: [...] 9-24 Bindal tab, l 16:08: Route: PO, [place] Drug form: TAB, Q6H, Dosing Weight 91.42, [...] Duration: 30 day, Stop date: 08/20/13 11:07:00 [place] No Meng K 1 tab, [facility] 7.5/325 9-24 Bindal Route: PO, l oral tablet 16:08: Drug Form: [place] 00 TAB, Dosing Weight 91.42, kg, Q4H, [...] Duration: 30 day, Stop date: 08/20/13 11:07:00 [place] 2012- No Meng K 1 tab, [facility] 7.5/325 07-21 Bindal Route: PO, l oral tablet 16:08: Drug Form: [place] 00 TAB, Dosing Weight 91.42, kg, Q4H, PRN Pain, Start date: 07/21/13 11:08:00, Duration: 30 day, Stop date: 08/20/13 11:07:00 1/2NS + KCL No Meng K 1,000 mL, [facility] 20mEq/L 07-21 Bindal Rate: 75 l 1000ml 16:08: ml/hr, [place] ([facility]) 00 Infuse 1,000 mL over: 13.3 hr, Route: IV, Dosing Weight 91.42 kg, Total Volume: 1,000, Start date: 07/21/13 11:08:00, Duration: 30 day, Stop date: 08/20/13 11:07:00 acetaminoph No Meng K 650 mg, 2 Memoria en 07-21 Bindal tab, l 16:08: Route: PO, [place] 00 Drug form: TAB, Q4H, Dosing Weight [...] Bindal mL, Route: l 16:08: IM, Drug [place] 00 form: INJ, Q4H, Dosing Weight 91.42, [...] Bindal mL, Route: l 16:08: IV, Drug [place] 00 form: INJ, Q6H, Dosing Weight 91.42, [...] Duration: 30 day, Stop date: 08/20/13 11:07:00 [place] No Meng K 1 tab, [facility] 7.5/325 07-21 Bindal Route: PO, l oral tablet 16:08: Drug Form: [place] 00 TAB, Dosing Weight 91.42, kg, Q4H, PRN Pain, Start date: 07/21/13 11:08:00, Duration: 30 day, Stop date: 08/20/13 11:07:00 1/2NS + KCL No Meng K 1,000 mL, [facility] 20mEq/L 9-24 Bindal Rate: 75 l 1000ml 16:08: ml/hr, [place] ([facility]) 00 Infuse 1,000 mL over: 13.3 [...] l oral tablet 20:15: Slava maza 10 Lidoderm 5% 2012- Yes Substituti [facility]oria topical [...] Bindal cap, PO, l delayed 20:11: Daily, [place] release 28 Substituti capsule on Allowed Cymbalta 30 Yes Meng K 30 mg, 1 [facility] mg oral 9-17 B[place]al cap, PO, l delayed 20:11: Daily, [place] release 28 Substituti capsule on Allowed Cymbalta 30 Yes Meng K 30 mg, 1 [facility] mg oral 9-17 Bindal cap, PO, l delayed 20:11: Daily, [place] release 28 Substituti capsule on Allowed Cymbalta [...] Bindal cap, PO, l delayed 20:11: Daily, [place] release 28 Substituti capsule on Allowed Cymbalta 30 Yes Meng K 30 mg, 1 [facility] mg oral 9-17 Bindal cap, PO, l delayed 20:11: Daily, [place] release 28 Substituti capsule on Allowed Cymbalta [...] Bindal cap, PO, l delayed 20:11: Daily, [place] release 28 Substituti capsule on Allowed losartan Yes Meng K 100 mg, 1 Me moria 100 mg oral 9-17 Bindal tab, PO, l tablet 20:11: Daily, [place] 13 Substituti on Allowed losartan Yes Meng [...] tab, PO, l tablet 20:09: Daily, [place] Jose Substituti on Allowed VESIcare 5 Yes Meng [...] tab, PO, l tablet 20:09: Daily, [place] Substituti on Allowed VESIcare 5 Yes Meng K 5 mg, 1 Me moria mg oral 9-17 Bindal tab, PO, l tablet 20:09: Daily, [place] Substituti on Allowed VESIcare 5 Yes Meng K 5 mg, 1 Me moria mg oral 9-17 Bindal tab, PO, l tablet 20:09: Daily, [place] Substituti on Allowed VESIcare 5 Yes Meng K 5 mg, 1 Me moria mg oral 9-17 Bindal tab, PO, l tablet 20:09: Daily, [place] Substituti on Allowed VESIcare 5 Yes Meng K 5 mg, 1 Me moria mg oral 9-17 Bindal tab, PO, l tablet 20:09: Daily, [place] Substituti on Allowed VESIcare 5 Yes Meng K 5 mg, 1 Me moria mg oral 9-17 Bindal tab, PO, l tablet 20:09: Daily, [place] Substituti on Allowed VESIcare 5 Yes Meng K 5 mg, 1 Me moria mg oral 9-17 Bindal tab, PO, l tablet 20:09: Daily, [place] Substituti on Allowed VESIcare 5 Yes Meng K 5 mg, 1 Me moria mg oral 9-17 Bindal tab, PO, l tablet 20:09: Daily, [place] Substituti on Allowed levothyroxi Yes Meng K [...] tablet 46 Daily, Substituti on Allowed levothyroxi 2013-0 Yes Meng K 75 Yariel mariza ne [...] Substituti Yamilex nn 23 on Allowed metFORmin 2012-0 Yes 1,000 mg, Mem oria 500 mg oral 17 2 tab, PO, l tablet 20:09: Substitutjo Kaminski 23 on Allowed metFORmin 2012-0 Yes 1,000 mg, Mem oria 500 mg oral -17 2 tab, PO, l tablet 20:09: Substitutjo Kaminski 23 on Allowed metFORmin 2012-0 Yes 1,000 mg, Mem oria 500 mg oral 17 2 tab, PO, l tablet 20:09: Substitutjo Kaminski 23 on Allowed aspirin 81 2012-0 Yes 81 mg, 1 Mem oria mg tablet, -17 tab, PO, l enteric 20:09: Daily, 0 Slava n coated 08 tab, Substituti on Allowed, ECTAB aspirin 81 2012-0 Yes 81 mg, 1 Mem oria mg tablet, -17 tab, PO, l enteric 20:09: Daily, 0 Slava n coated 08 tab, Substituti on Allowed, ECTAB aspirin 81 2012-0 Yes 81 mg, 1 Mem oria mg tablet, 17 tab, PO, l enteric 20:09: Daily, 0 Slava n coated 08 tab, Substituti on Allowed, ECTAB aspirin 81 2012-0 Yes 81 mg, 1 Mem oria mg tablet, 9-17 tab, PO, l enteric 20:09: Daily, 0 Slava n coated 08 tab, Substituti on Allowed, ECTAB aspirin 81 2012-0 Yes 81 mg, 1 Mem oria mg tablet, -17 tab, PO, l enteric 20:09: Daily, 0 [...] Bindal tab, PO, l tablet 20:08: Bedtime, [place] 53 30 tab, Substituti on Allowed simvastatin Yes Meng K 20 mg, 1 [facility] 20 mg oral 9-17 Bindal tab, PO, l tablet 20:08: Bedtime, [place] 53 30 tab, Substituti on Allowed simvastatin Yes Meng K 20 mg, 1 [facility] 20 mg oral 9-17 Bindal tab, PO, l tablet 20:08: Bedtime, [place] 53 30 tab, Substituti on Allowed simvastatin Yes Meng K 20 mg, 1 [facility] 20 mg oral 9-17 Bindal tab, PO, l tablet 20:08: Bedtime, [place] 53 30 tab, Substituti on Allowed simvastatin Yes Meng K 20 mg, 1 [facility] 20 mg oral 9-17 Bindal tab, PO, l tablet 20:08: Bedtime, [place] 53 30 tab, Substituti on Allowed simvastatin Yes Meng K 20 mg, 1 [facility] 20 mg oral 9-17 Bindal tab, PO, l tablet 20:08: Bedtime, [place] 53 30 tab, Substituti on Allowed simvastatin 2012-0 Yes Meng K 20 mg, 1 [facility] 20 mg oral 9-17 Bindal tab, PO, l tablet 20:08: Bedtime, [place] 53 30 tab, Substituti on Allowed simvastatin 2012-0 Yes Meng K 20 mg, 1 [facility] 20 mg oral 9-17 Bindal tab, PO, l tablet 20:08: Bedtime, [place] 53 30 tab, Substituti on Allowed simvastatin 2012-0 Yes Meng K 20 mg, 1 [facility] 20 mg oral 9-17 Bindal tab, PO, l tablet 20:08: Bedtime, [place] 53 30 tab, Substituti on Allowed simvastatin 0 Yes Meng K 20 mg, 1 [facility] 20 mg oral 9-17 Bindal tab, PO, l tablet 20:08: Bedtime, [place] 53 30 tab, Substituti on Allowed simvastatin 0 Yes Meng K 20 mg, 1 [facility] 20 mg oral 9-17 Bindal tab, PO, l tablet 20:08: Bedtime, [place] 53 30 tab, Substituti on Allowed omeprazole 2013-0 Yes PO, Daily, M emoria 9-17 Substituti l 20:08: on Allowed [place] 40 omeprazole 2012-0 Yes PO, Daily, M emoria 9-17 Substituti l 20:08: on Allowed [place] 40 omeprazole 2012-0 Yes PO, Daily, M emoria 9-17 Substituti l 20:08: on Allowed [place] 40 omeprazole 2012-0 Yes PO, Daily, M emoria 9-17 Substituti l 20:08: on Allowed [place] 40 omeprazole 2012-0 Yes PO, Daily, M emoria 9-17 Substituti l 20:08: on Allowed [place] 40 omeprazole 2012-0 Yes PO, Daily, M emoria 9-17 Substituti l 20:08: on Allowed [place] 40 omeprazole 2012-0 Yes PO, Daily, M emoria 9-17 Substituti l 20:08: on Allowed [place] 40 omeprazole 2012-0 Yes PO, Daily, M emoria 9-17 Substituti l 20:08: on Allowed [place] 40 omeprazole 2013-0 Yes PO, Daily, M emoria 9-17 Substituti l 20:08: on Allowed [place] 40 omeprazole 2012-0 Yes PO, Daily, M emoria 9-17 Substituti l 20:08: on Allowed [place] 40 omeprazole 2012-0 Yes PO, Daily, M emoria 9-17 Substituti l 20:08: on Allowed [place] 40 omeprazole 2012-0 Yes PO, Daily, M emoria 9-17 Substituti l 20:08: on Allowed [place] 40 gabapentin 2012- Yes Meng K 600 mg, 1 Memoria [...] BID, [place] Bass Substituti on Allowed gabapentin 2012- Yes Meng K 600 mg, 1 [facility] 600 mg oral 9-17 Bindal tab, PO, l tablet 20:08: BID, [place] Substituti on Allowed gabapentin 2012- Yes Meng K 600 mg, 1 [facility] 600 mg oral 9-17 Bindal tab, PO, l tablet 20:08: BID, [place] Substituti on Allowed gabapentin 2012- Yes Meng K 600 mg, 1 Memoria [...] Bindal tab, PO, l tablet 20:08: BID, [place] Substituti on Allowed influenza No SYSTEM 0.5 [...] 07/14/13 14:52:32, Stop date: 08/13/13 14:47:32 influenza 2012- No SYSTEM 0.5 mL, Mem oria virus 9-17 SYSTEM Route: IM, l vaccine, 19:52: Drug Form: Her culp inactivated 32 SUSP, ONCALL, Start date: 07/14/13 14:52:32, Stop date: 08/13/13 14:47:32 influenza No SYSTEM 0.5 mL, Mem oria virus 9-17 SYSTEM Route: IM, l vaccine, 19:52: Drug Form: Her culp inactivated 32 SUSP, ONCALL, Start date: 07/14/13 14:52:32, Stop date: 08/13/13 14:47:32 influenza 2012- No SYSTEM 0.5 mL, Mem oria virus [...] Immunizations Ordered Filled Immunization Date Status Comments Sourc e Immunization Name Name SARS-COV-2 COVID-19 2022-08-29 Completed Unive rsity of VACCINE 12 YRS+, 00:00:00 [place] [facility] BIVALENT 0.5ML, IM, Branc h (MODERNA [...] Me dical BIVALENT 0.5ML, IM, Branc h (MODERNA-BLUE TOP) SARS-COV-2 COVID-19 2022-08-29 Completed Unive rsity of VACCINE 12 YRS+, 00:00:00 [place] Me dical BIVALENT 0.5ML, IM, Branc h (MODERNA-BLUE TOP) SARS-COV-2 COVID-19 2022-08-29 Completed Unive rsity of VACCINE 12 YRS+, 00:00:00 [place] Me [facility]ical BIVALENT 0.5ML, IM, Branc h (MODERNA-BLUE TOP) SARS-COV-2 COVID-19 2022-08-29 Completed Unive rsity of VACCINE 12 YRS+, 00:00:00 [place] Me [facility]ical BIVALENT 0.5ML, IM, Branc h (MODERNA-BLUE TOP) SARS-COV-2 COVID-19 2022-08-29 Completed Unive rsity of VACCINE 12 YRS+, 00:00:00 [place] Me [facility]ical BIVALENT 0.5ML, IM, Branc h (MODERNA-BLUE TOP) SARS-COV-2 COVID-19 2022-08-29 Completed Unive rsity of VACCINE 12 YRS+, 00:00:00 [place] Me [facility]ical BIVALENT 0.5ML, IM, Branc h (MODERNA-BLUE TOP) SARS-COV-2 COVID-19 2022-08-29 Completed Unive rsity of VACCINE 12 YRS+, 00:00:00 [place] [facility] BIVALENT 0.5ML, IM, Branc h (MODERNA-BLUE TOP) SARS-COV-2 COVID-19 2022-08-29 Completed Unive rsity of VACCINE 12 YRS+, 00:00:00 [place] Me [facility]ical BIVALENT 0.5ML, IM, Branc h (MODERNA-BLUE TOP) SARS-COV-2 COVID-19 2022-08-29 Completed Unive rsity of [...] Dose 2019-09-16 Completed [facility]ive rsity of 00:00:00 [facility] Zoster Vaccine 2019-09-16 Completed [facility] of Recombinant 00:00:00 [facility] Influenza High Dose 2019-09-16 Completed Unive rsity of 00:00:00 [facility] Zoster Vaccine 2019-09-16 Completed [facility] Recombinant 00:00:00 [facility] Influenza High Dose 2019-09-16 Completed Unive rsity of 00:00:00 [facility] Zoster Vaccine 2019-09-16 Completed [facility] Recombinant 00:00:00 [facility] Influenza High Dose 2019-09-16 Completed [facility]ive rsity of 00:00:00 [facility] Zoster Vaccine 2019-09-16 Completed [facility] Recombinant 00:00:00 [facility] Influenza High Dose 2019-09-16 Completed [facility]ive rsity of 00:00:00 [facility] Zoster Vaccine 2019-09-16 Completed [facility] Recombinant 00:00:00 [facility] Influenza High Dose 2019-09-16 Completed [facility]ive rsity of 00:00:00 [facility] Zoster Vaccine 2019-09-16 Completed [facility] Recombinant 00:00:00 [facility] Influenza High Dose 2019-09-16 Completed [facility]ive rsity of 00:00:00 [facility] Zoster Vaccine 2019-09-16 Completed [facility] Recombinant 00:00:00 [facility] Influenza High Dose 2019-09-16 Completed [facility]ive rsity of 00:00:00 [facility] Zoster Vaccine 2019-09-16 Completed [facility] Recombinant 00:00:00 [facility] Influenza High Dose 2019-09-16 Completed [facility]ive rsity of 00:00:00 [facility] Zoster Vaccine 2019-09-16 Completed [facility] Recombinant 00:00:00 [facility] Influenza High Dose 2019-09-16 Completed [facility]ive rsity of 00:00:00 [facility] Zoster Vaccine 2019-09-16 Completed [facility] Recombinant 00:00:00 [facility] Influenza High Dose 2019-09-16 Completed [facility]ive rsity of 00:00:00 [facility] Zoster Vaccine 2019-09-16 Completed [facility] Recombinant 00:00:00 [facility] Influenza High Dose 2019-09-16 Completed [facility]ive rsity of 00:00:00 [facility] Zoster Vaccine 2019-09-16 Completed [facility] Recombinant 00:00:00 [facility] Influenza High Dose 2019-09-16 Completed [facility] 00:00:00 [facility] Zoster Vaccine 2019-09-16 Completed [facility] Recombinant 00:00:00 [facility] Influenza High Dose 2019-09-16 Completed [facility] 00:00:00 [facility] Zoster Vaccine 2019-09-16 Completed [facility] Recombinant 00:00:00 [facility] Influenza High Dose 2019-09-16 Completed [facility] 00:00:00 [facility] Zoster Vaccine 2019-09-16 Completed [facility] Recombinant 00:00:00 [facility] Influenza High Dose 2019-09-16 Completed [facility] 00:00:00 [facility] Zoster Vaccine 2019-09-16 Completed [facility] Recombinant 00:00:00 [facility] Influenza High Dose 2019-09-16 Completed [facility] 00:00:00 [facility] Zoster Vaccine 2019-09-16 Completed [facility] Recombinant 00:00:00 [facility] Influenza High Dose 2019-09-16 Completed [facility] 00:00:00 [facility] Zoster Vaccine 2019-09-16 Completed [facility] Recombinant 00:00:00 [facility] Influenza High Dose 2019-09-16 Completed [facility] 00:00:00 [facility] Zoster Vaccine 2019-09-16 Completed [facility] Recombinant 00:00:00 [facility] Influenza High Dose 2019-09-16 Completed [facility] 00:00:00 [facility] Zoster Vaccine 2019-09-16 Completed [facility] Recombinant 00:00:00 [facility] Influenza High Dose 2019-09-16 Completed [facility] 00:00:00 [facility] Zoster Vaccine 2019-09-16 Completed [facility] Recombinant 00:00:00 [facility] Influenza High Dose 2019-09-16 Completed [facility] 00:00:00 [facility] Zoster Vaccine 2019-09-16 Completed [facility] Recombinant 00:00:00 [facility] Influenza High Dose 2019-09-16 Completed Unive rsity of 00:00:00 [facility] Zoster Vaccine 2019-09-16 Completed University of Recombinant 00:00:00 [facility] Influenza High Dose 2019-09-16 Completed Unive rsity of 00:00:00 [facility] Zoster Vaccine 2019-09-16 Completed University of Recombinant 00:00:00 [facility] Influenza High Dose 2019-09-16 Completed Unive rsity of 00:00:00 [facility] Zoster Vaccine 2019-09-16 Completed University of Recombinant 00:00:00 [facility] Influenza High Dose 2019-09-16 Completed Unive rsity of 00:00:00 [facility] Zoster Vaccine 2019-09-16 Completed University of Recombinant 00:00:00 [facility] Influenza High Dose 2019-09-16 Completed Unive rsity of 00:00:00 [facility] Zoster Vaccine 2019-09-16 Completed University of Recombinant 00:00:00 [facility] Influenza High Dose 2019-09-16 Completed Unive rsity of 00:00:00 [facility] Zoster Vaccine 2019-09-16 Completed University of Recombinant 00:00:00 [facility] Influenza High Dose 2019-09-16 Completed Unive rsity of 00:00:00 [facility] Zoster Vaccine 2019-09-16 Completed University of Recombinant 00:00:00 [facility] Influenza High Dose 2019-09-16 Completed Unive rsity of 00:00:00 [facility] Zoster Vaccine 2019-09-16 Completed University of Recombinant 00:00:00 [facility] Influenza High Dose 2019-09-16 Completed Unive rsity of 00:00:00 [facility] Zoster Vaccine 2019-09-16 Completed University of Recombinant 00:00:00 [facility] Influenza High Dose 2019-09-16 Completed Unive rsity of 00:00:00 [facility] Zoster Vaccine 2019-09-16 Completed University of Recombinant 00:00:00 [facility] Influenza High Dose 2019-09-16 Completed Unive rsity of 00:00:00 [facility] Zoster Vaccine 2019-09-16 Completed University of Recombinant 00:00:00 [facility] Influenza High Dose 2019-09-16 Completed Unive rsity of 00:00:00 [facility] Zoster Vaccine 2019-09-16 Completed University of Recombinant 00:00:00 [facility] Influenza High Dose 2019-09-16 Completed Unive rsity of 00:00:00 [facility] Zoster Vaccine 2019-09-16 Completed University of Recombinant 00:00:00 [facility] Pneumococcal 13 2017-08-21 Completed Universit y of Conjugate, PCV13 00:00:00 [place] [facility] (Prevnar 13) Branch Pneumococcal 13 2017-08-21 Completed Universit y of Conjugate, PCV13 00:00:00 [place] [facility] (Prevnar 13) Branch Pneumococcal 13 2017-08-21 Completed Universit y of Conjugate, PCV13 00:00:00 [place] [facility] (Prevnar 13) Branch Pneumococcal 13 2017-08-21 Completed Universit y of Conjugate, PCV13 00:00:00 [place] [facility] (Prevnar 13) Branch Pneumococcal 13 2017-08-21 Completed Universit y of Conjugate, PCV13 00:00:00 [place] [facility] (Prevnar 13) Branch Pneumococcal 13 2017-08-21 Completed Universit y of Conjugate, PCV13 00:00:00 [facility] [place] [facility] dical (Prevnar 13) Branch Pneumococcal 13 2017-08-21 [...] Time Observation Value Comments Source Systolic blood 2023-05-01 15:08:00 132 mm[Hg] Univer sity of pressure [facility] Diastolic blood 2023-05-01 15:08:00 67 mm[Hg] Unive rsity of pressure [facility] Body temperature 2023-05-01 15:08:00 36 Yuni Univ ersity of [facility] Body height 2023-05-01 15:08:00 175.3 cm Universi ty of [facility] Body weight 2023-05-01 15:08:00 89.767 kg Universi ty of [facility] BMI 2023-05-01 15:08:00 29.22 kg/m2 Universi ty of [facility] Oxygen saturation in 2023-05-01 15:08:00 97 /min University of Arterial blood by [facility] Pulse oximetry Branch Systolic blood 2023-03-23 18:38:00 147 mm[Hg] Univer sity of pressure [facility] Diastolic blood 2023-03-23 18:38:00 75 mm[Hg] Unive rsity of pressure [facility] Heart rate 2023-03-23 18:38:00 93 /min Universi ty of [facility] Body temperature 2023-03-23 18:38:00 36.11 Yuni Univ ersity of [facility] Respiratory rate 2023-03-23 18:38:00 18 /min Univ ersity of [facility] Body weight 2023-03-23 18:38:00 88.134 kg Universi ty of [facility] BMI 2023-03-23 18:38:00 29.54 kg/m2 Universi ty of [facility] Oxygen saturation in 2023-03-23 18:38:00 98 /min University of Arterial blood by [facility] Pulse oximetry Branch Systolic blood 2023-02-25 19:26:00 127 mm[Hg] Univer sity of pressure [facility] Diastolic blood 2023-02-25 19:26:00 70 mm[Hg] Unive rsity of pressure [facility] Heart rate 2023-02-25 19:26:00 107 /min Universi ty of [facility] Body temperature 2023-02-25 19:26:00 36.83 Yuni Univ ersity of [place] [facility] Respiratory rate 2023-02-25 19:26:00 18 /min Univ ersity of [facility] Body height 2023-02-25 19:26:00 172.7 cm Universi ty of [place] [facility] Body weight 2023-02-25 19:26:00 90.266 kg Universi ty of [place] [facility] BMI 2023-02-25 19:26:00 30.26 kg/m2 Universi ty of [facility] Systolic blood 2023-02-06 15:15:00 112 mm[Hg] Univer sity of pressure [place] [facility] Diastolic blood 2023-02-06 15:15:00 71 mm[Hg] Unive rsity of pressure [facility] Heart rate 2023-02-06 15:15:00 100 /min Universi ty of [facility] Body temperature 2023-02-06 15:15:00 36.28 [place] Univ ersity of [facility] Respiratory rate 2023-02-06 15:15:00 16 /min Univ ersity of [facility] Body height 2023-02-06 15:15:00 172.7 cm Universi ty of [facility] Body weight 2023-02-06 15:15:00 91.627 kg Universi ty of [place] [facility] BMI 2023-02-06 15:15:00 30.71 kg/m2 Universi ty of [facility] Oxygen saturation in 2023-02-06 15:15:00 97 /min [facility] Arterial blood by [facility] Pulse oximetry Branch Systolic blood 2023-01-10 23:16:00 111 mm[Hg] Univer sity of pressure [place] [facility] [place] Diastolic blood 2023-01-10 23:16:00 63 mm[Hg] Unive rsity of pressure [facility] Heart rate 2023-01-10 23:16:00 78 /min Universi ty of [place] [facility] Body temperature 2023-01-10 23:16:00 36.39 Yuni Univ ersity of [facility] Respiratory rate 2023-01-10 23:16:00 20 /min Univ ersity of [facility] Body height 2023-01-10 23:16:00 172.7 cm Universi ty of [facility] Body weight 2023-01-10 23:16:00 90.493 kg Universi ty of [place] [facility] BMI 2023-01-10 23:16:00 30.33 kg/m2 Universi ty of [place] [facility] Oxygen saturation in 2023-01-10 23:16:00 96 /min University of Arterial blood by [facility] sweta Pulse oximetry Branch Systolic blood 2022-08-29 14:46:00 137 mm[Hg] Univer sity of pressure [facility] Diastolic blood 2022-08-29 14:46:00 83 mm[Hg] Unive rsity of pressure [facility] Heart rate 2022-08-29 14:46:00 92 /min Universi ty of [facility] Body temperature 2022-08-29 14:46:00 36.61 Yuni Univ ersity of [place] [facility] Body height 2022-08-29 14:46:00 175.3 cm Universi ty of [facility] Body weight 2022-08-29 14:46:00 93.396 kg Universi ty of [place] [facility] BMI 2022-08-29 14:46:00 30.41 kg/m2 Universi ty of [facility] Systolic blood 2022-07-27 02:30:00 151 mm[Hg] Univer sity of pressure [facility] Diastolic blood 2022-07-27 02:30:00 60 mm[Hg] Unive rsity of pressure [facility] Heart rate 2022-07-27 02:30:00 76 /min Universi ty of [place] [facility] Body temperature 2022-07-27 02:30:00 36.89 Yuni Univ ersity of [place] [facility] Respiratory rate 2022-07-27 02:30:00 16 /min Univ ersity of [place] [facility] Oxygen saturation in 2022-07-27 02:30:00 97 /min University of Arterial blood by [facility] Pulse oximetry Branch Body weight 2022-07-26 23:23:00 92.08 kg Universi ty of [place] [facility] BMI 2022-07-26 23:23:00 30.87 kg/m2 Universi ty of [place] [facility] Systolic blood 2022-06-27 14:26:00 125 mm[Hg] Univer sity of pressure [place] [facility] Diastolic blood 2022-06-27 14:26:00 75 mm[Hg] Unive rsity of pressure [facility] Heart rate 2022-06-27 14:26:00 102 /min Universi ty of [place] [facility] Body temperature 2022-06-27 14:26:00 36.56 Yuni [facility] Respiratory rate 2022-06-27 14:26:00 18 /min [facility] Body height 2022-06-27 14:26:00 172.7 cm [facility] Body weight 2022-06-27 14:26:00 92.08 kg [facility] BMI 2022-06-27 14:26:00 30.87 kg/m2 [facility] Oxygen saturation in 2022-06-27 14:26:00 99 /min [facility] Arterial blood by [facility] Pulse oximetry Branch Systolic (mm Hg) 2022-02-13 16:45:00 Yariel rial [place] Diastolic (mm Hg) 2022-02-13 16:45:00 Mem orial [place] Heart Rate 2022-02-13 16:45:00 [facility] [place] Respitory Rate 2022-02-13 16:45:00 Memori al [facility] Height 2022-02-13 16:45:00 167.64 cm [facility] [place] Weight 2022-02-13 16:45:00 [facility] [place] BMI Calculated 2022-02-13 16:45:00 Memori al [place] Systolic (mm Hg) 2021-10-16 16:45:00 Yariel rial [place] Diastolic (mm Hg) 2021-10-16 16:45:00 Mem orial [place] Heart Rate 2021-10-16 16:45:00 [facility] [place] Respitory Rate 2021-10-16 16:45:00 Memori al [facility] Height 2021-10-16 16:45:00 167.64 cm [facility] [place] Weight 2021-10-16 16:45:00 [facility] [place] BMI Calculated 2021-10-16 16:45:00 Memori al [facility] Systolic (mm Hg) 2021-09-18 21:13:00 Yariel rial [place] Diastolic (mm Hg) 2021-09-18 21:13:00 Mem orial [facility] Heart Rate 2021-09-18 21:13:00 [facility] [place] Respitory Rate 2021-09-18 21:13:00 Memori al [place] Height 2021-09-18 21:13:00 162.56 cm [facility] Weight 2021-09-18 21:13:00 [facility] [place] BMI Calculated 2021-09-18 21:13:00 Memori al [facility] Systolic (mm Hg) 2021-09-18 20:58:00 Yariel rial Adam Diastolic (mm Hg) 2021-09-18 20:58:00 Mem orial [place] Heart Rate 2021-09-18 20:58:00 [facility] Respitory Rate 2021-09-18 20:58:00 Memori al [place] Height 2021-09-18 20:58:00 162.56 cm [facility] [place] Weight 2021-09-18 20:58:00 [facility] BMI Calculated 2021-09-18 20:58:00 Memori al [facility] Systolic (mm Hg) 2021-08-15 20:09:00 Yariel rial [place] Diastolic (mm Hg) 2021-08-15 20:09:00 Mem orial [facility] Heart Rate 2021-08-15 20:09:00 [facility] [place] Respitory Rate 2021-08-15 20:09:00 Memori al [place] Height 2021-08-15 20:09:00 165.1 cm [facility] [place] Weight 2021-08-15 20:09:00 [facility] BMI Calculated 2021-08-15 20:09:00 Memori al [place] Diastolic (mm Hg) 2013-07-22 13:00:00 Mem orial [place] Systolic (mm Hg) 2013-07-22 13:00:00 Yariel rial [place] Respitory Rate 2013-07-22 13:00:00 Memori al [place] Heart Rate 2013-07-22 13:00:00 [facility] Temperature Oral (F) 2013-07-22 13:00:00 97.4 F [facility] Diastolic (mm Hg) 2013-07-22 10:07:00 Mem orial [place] Heart Rate 2013-07-22 10:07:00 [facility] Respitory Rate 2013-07-22 10:07:00 Memori al [facility] Systolic (mm Hg) 2013-07-22 10:07:00 Yariel rial [facility] Temperature Oral (F) 2013-07-22 10:07:00 97.9 F [facility] Heart Rate 2013-07-22 05:00:00 [facility] Temperature Oral (F) 2013-07-22 05:00:00 97.5 F Yogesh Medina Diastolic (mm Hg) 2013-07-22 05:00:00 Elvia Medina Systolic (mm Hg) 2013-07-22 05:00:00 Yariel Medina Respitory Rate 2013-07-22 05:00:00 Misha Howell Weight 2013-07-14 17:54:00 Yogesh Medina Height 2013-07-14 17:54:00 175.26 cm [facility] [place] Procedures Procedure Date / Time Performing Clinician Source Performed DUPLEX VENOUS LEG RIGHT - 2023-05-22 14:28:00 William Crandall [facility] BY VASCULAR LAB Medical Branch ASSIGNMENT OF BENEFITS 2023-04-24 15:34:18 [facility] [place] [facility] POCT URINALYSIS W/O 2023-02-25 19:41:00 Bishnu Wright [facility] SPECIFIC GRAVITY Medical Branch PATIENT QUESTIONNAIRE 2023-02-25 05:01:00 Doctor Unassigned, [facility] Name [facility] EXTERNAL PROVIDER RECORDS 2023-02-13 05:01:00 Doctor Unassigned, [facility] XR CHEST 2 VW 2023-01-10 23:42:00 Britt Castro [facility] SARS-COV-2 COVID-19 2022-08-29 15:43:55 Spike Tapia [facility] VACCINE 12 YRS+, BIVALENT Medica l Branch 0.5ML, IM (MODERNA BOOSTER) ASSIGNMENT OF BENEFITS 2022-08-29 14:24:33 [facility] XR CHEST 1 VW 2022-07-27 00:50:00 Quinton Wilson [facility] COMP. METABOLIC PANEL 2022-07-27 00:36:00 Quinton Wilson [facility] ([id number]) Medical Branch CBC WITH DIFF 2022-07-27 00:36:00 Quinton Wilson [facility] N-TERMINAL PRO-BNP 2022-07-27 00:36:00 Quinton Wilson [facility] COVID-19 (ID NOW RAPID 2022-07-27 00:36:00 Quinton Wilson [facility] TESTING Medical [place] NOTICE OF PRIVACY 2022-07-26 23:06:52 Doctor Unassigned, [facility] PRACTICES [place] [facility] CONSENT/REFUSAL FOR 2022-07-26 23:06:32 Doctor Unassjose, Shruti [facility] DIAGNOSIS AND TREATMENT [place] [facility] [place] Gallbladder operation [facility] H ermann Abdominal hysterectomy [facility] [place] Knee replacement [facility] Cholecystectomy [facility] CEIOL - Cataract [facility] extraction and insertion of intraocular lens Appendectomy [facility] Cervical discectomy [facility] culp Abdominal hysterectomy [facility] Appendectomy [facility] CEIOL - Cataract [facility] [place] extraction and insertion of intraocular lens Cholecystectomy [facility] Adam Knee replacement [facility] [facility] Encounters Start End Encounter Admission Attending Care Care Encounter Source Date/Time Date/Time Type Type Clinicians Facility Department ID 2023-05-22 2023-05-22 Outpatient R [facility] [id number] Univers 08:47:16 23:59:00 DEBO xiong o f [facility] 2023-05-22 2023-05-22 [facility] 1.2.840.[id number] [facility] 08:47:16 23:59:00 Encounter Debo ESQUEDA 350.1.13.10 [place]y [place] [id number] [facility] 850 Branch 2023-05-08 2023-05-08 Telephone HANNAH Tapia 1.2.840.114 [id number] Univers 00:00:00 00:00:00 [facility] 350.1.13.10 i ty [place] [id number] [facility] 089 Branch 2023-05-01 2023-05-01 Industrial Cafeteria Manager [facility] 1.2.840.114 [id number] Univers 12:15:00 12:30:00 Visit José Miguel Bang HEALTH 350.1.13.10 ity of [facility] 4[place]2.7.2.[place] [id number] [facility] 316 Branch 2023-05-01 2023-05-01 Office Spike Tapia [facility] 1.2.840.114 [id number] Univers 10:30:00 11:00:00 Visit José Miguel Bang [facility] 350.1.13.10 ity [place] [id number] [facility] 089 Branch 2023-05-01 2023-05-01 Outpatient R BETI, [facility] [id number] Univers 10:30:00 10:30:[address] [facility] 2023-04-24 2023-04-24 Industrial Cafeteria Manager Philip, Sammie Lab Main [facility] 1.2.8 40.114 [id number] Univers 11:15:00 11:30:00 Visit Chitra Henry 350.1.13.10 [place] [phone] Or juwan [facility] 353 Branch BUILDING 2023-04-24 2023-04-24 [facility] [id number] Univers 11:15:00 11:15:[address] [facility] 2023-04-24 2023-04-24 Orders Doctor PACO 1.2.840.114 [id number] Univers 00:00:00 00:00:00 Only Unassigned, DANUTA 350.1.13.10 ity of [place] [facility] 4.2.7.2.686 Daniel as [phone] [facility] [address] [place] 2023-03-23 2023-03-23 Nurse Nurse, Elier [facility] 1.2.840.114 [id number] Univers 13:00:00 13:20:00 Visit Unknown, Attending HEALTH 350.1.13.10 ity of [place] 4.2.7.2.686 Daniel as ANDREA?BLEA [phone] Or dical KNEY [address] [place] MEDICAL OFFICE BUILDING 2023-03-23 2023-03-23 Outpatient Ofelia AGOSTO [facility] [id number] Univers 13:00:00 13:00:00 BIBI xiong [facility] 2023-02-25 2023-02-25 Outpatient BISHNU SILVEIRA [facility] [id number] Univers 14:30:00 15:16:11 BISHNU WRIGHT [facility] 2023-02-25 2023-02-25 Office [facility] 1.2.840.114 [id number] Univers 14:30:00 15:16:11 Visit Bishnu ESQUEDA 350.1.13.10 i ty [place] [phone] [facility] 098 [facility] 2023-02-25 2023-02-25 Orders Doctor PACO 1.2.840.114 [id number] Univers 00:00:00 00:00:00 Only Unassigned, DANUTA 350.1.13.10 ity of [place] [facility] 4.2.7.2.686 Daniel as [id number] [address] 2023-02-13 2023-02-13 Orders Doctor PACO 1.2.840.114 [id number] Univers 00:00:00 00:00:00 Only Unassigned, DANUTA 350.1.13.10 ity of [place] [facility] 4.2.7.2.686 Daniel as [id number] [address] 2023-02-12 2023-02-12 Telephone PACO Tapia 1.2.640.059 [id number] Univers 00:00:00 00:00:00 Spike TIPTON 350.1.13.10 it y of HOSPITAL 4.2.7.2.686 Daniel as [id number] [address] 2023-02-08 2023-02-08 Telephone HANNAH Tapia 1.2.840.114 [id number] Univers 00:00:00 00:00:00 Spike Y [facility] 350.1.13.10 i ty [place] [id number] [facility] 089 [place] 2023-02-07 2023-02-07 Telephone PACO Tapia 1.2.353.156 [id number] Univers 00:00:00 00:00:00 Spikemayi TIPTON 350.1.13.10 it y of HOSPITAL 4.2.7.2.686 Daniel as [id number] [facility] 009 [place] 2023-02-06 2023-02-06 Industrial Cafeteria Manager [facility] 1.2.840.114 [id number] Univers 11:30:00 11:45:00 Visit José Miguel Bang HEALTH 350.1.13.10 ity of CLINICS 4.2.7.2.686 [place] [phone] [facility] 316 [place] 2023-02-06 2023-02-06 Outpatient R BETI [facility] [id number] Univers 10:00:00 11:09:24 JOSÉ MIGUEL ity of [facility] 2023-02-06 2023-02-06 Office Spike TapiaIT 1.2.840.114 [id number] Univers 10:00:00 11:09:24 Visit José Miguel Bang HEALTH 350.1.13.10 ity of CL[place] [phone] [facility] [address] [place] 2023-01-11 2023-01-11 Telephone Pcp, [facility] 1.2.984.424 [id number] Univers 00:00:00 00:00:00 Patient HEALTH 350.1.13.10 it y of [place] Not [place].2.[place] ANDREA?BLEA [id number] [facility] [address] [place] MEDICAL OFFICE [facility] 2023-01-10 2023-01-10 [facility] 1.2.840.114 [id number] Univers 18:26:44 23:59:00 Encounter Britt Wilder [facility] 350.1.13.10 ity of [place] 4.2.7.2.686 Daniel as ANDREA?BLEA [id number] [facility] [address] [place] MEDICAL OFFICE [facility] 2023-01-10 2023-01-10 Outpatient R [facility] [id number] Univers 18:00:00 18:34:50 BRITT xiong o f [facility] 2023-01-10 2023-01-10 Urgent Britt Castro [facility] 1.2.840 .114 [id number] Univers 18:00:00 18:34:50 Care Unknown, Attending HEALTH 350.1.13.10 ity of [place] 4.2.7.2.686 [place] ANDREA?BLEA [id number] [address] MEDICAL OFFICE BUILDING 2022-12-26 2022-12-26 Refbutch Tapia, [facility] 1.2.176.851 [id number] Univers 00:00:00 00:00:00 Spike Y HEALTH 350.1.13.10 i ty of [place] [id number] [place] [address] [place] 2022-08-29 2022-08-29 Industrial Cafeteria Manager [facility] 1.2.840.114 [id number] Univers 11:45:00 12:00:00 Visit [facility] 350.1.13.10 ity of CL[place] 4[place] [id number] [facility] [address] [place] 2022-08-29 2022-08-29 Outpatient R BRYAN [facility] [id number] Univers 10:00:00 11:04:18 [facility] 2022-08-29 2022-08-29 Office Butch Tapiaita [facility] 1.2.840.114 [id number] Univers 10:00:00 11:04:18 [facility] 350.1.13.10 [place] [id number] [address] 2022-08-29 2022-08-29 Orders Doctor PACO 1.2.840.114 [id number] Univers 00:00:00 00:00:00 Only Unassigned, DANUTA 350.1.13.10 ity of [place] [facility] 4.2.7.2.686 Daniel as [id number] [facility] [address] [place] 2022-07-26 2022-07-26 Emergency X [facility] ERT [id number] Univers 18:25:00 21:34:[address] [facility] 2022-07-26 2022-07-26 Emergency [facility] [id number] Univers 18:25:00 21:34:00 Quinton S JENNATON 350.1.13.10 i ty [place].2.[place] [facility] [id number] [place] [address] Branch 2022-07-26 2022-07-26 Orders Doctor PACO 1.2.840.114 [id number] Univers 00:00:00 00:00:00 Only Unassigned, DANUTA 350.1.13.10 ity of [place] [facility] 4.2.7.2.686 Daniel as [id number] [facility] 009 Branch 2022-06-28 2022-06-28 Telephone Regina [facility] 1.2.840.114 [id number] Univers 00:00:00 00:00:00 [facility] 350.1.13.10 i ty of [place] [id number] [facility] [address] [place] 2022-06-27 2022-06-27 Industrial Cafeteria Manager [facility] UNIVERS 1.2.840.114 [id number] Univers 11:15:00 11:30:00 Visit José Miguel Bang [facility] 350.1.13.10 ity of [place] [id number] [facility] 316 Branch 2022-06-27 2022-06-27 [facility] 1.2.840.114 [id number] Univers 10:00:00 10:30:00 Visit José Miguel Bang [facility] 350.1.13.10 ity of CL[place] [id number] [place] [address] [place] 2022-06-27 2022-06-27 Outpatient R BETI [facility] [id number] Univers 10:00:00 10:00:00 JOSÉ MIGUEL xiong [facility] 2022-06-27 2022-06-27 Outpatient R BETI [facility] [id number] Univers 10:00:00 10:00:00 JOSÉ MIGUEL xiong [facility] 2022-06-07 2022-06-09 Outside nullFlavo MNA [id number] Memoria 16:52:42 04:59:59 Medical r Neurology 01 l Records Clark Medina 2022-06-07 2022-06-09 Outside nullFlavo MNA [id number] Memoria 16:52:42 04:59:59 Medical r Neurology 01 l Records Onyx [place] 2022-06-07 2022-06-08 Outpatient MHMISCHER MHMISCHER [id number] 11:52:42 23:59:59 2022-06-04 2022-06-04 Telephone Regina ROXANEBROCK 1.2.840.114 [id number] Univers 00:00:00 00:00:00 Spike Y HEALTH 350.1.13.10 i ty [place] [id number] [facility] 089 Branch 2022-05-31 2022-05-31 Telephone [facility] 1.2.818.850 [id number] Univers 00:00:00 00:00:00 Kena Tapia MULTISPEC 350.1.13.10 [place] of [place]2.[place] [id number] [facility] AND [address] DIABETES CLINIC 2022-05-26 2022-05-26 Outpatient R RADU [facility] [id number] Univers 13:35:00 14:24:34 [facility] 2022-[facility]-26 2022-05-26 Urgent [facility] 1.2.840.114 [id number] Univers 13:35:00 14:24:34 Care Ting HEALTH 350.1.13.10 it y of [place] 4.2.7.2.686 Daniel as ANDREA?BLEA [id number] [address] MEDICAL OFFICE BUILDING 2022-04-11 2022-04-11 Transition KATHLEEN Jackson 1.2.840.114 [id number] Univers 00:00:00 00:00:00 of Care Sona SERRANO 350.1.13.10 [place] [id number] [facility] [address] 2022-04-09 2022-04-10 Outpatient X JOSE CARLOS [facility] [id number] Univers 03:41:00 14:05:00 MICHAEL xiong [facility] 2022-04-09 2022-04-10 Emergency Michael Potter [facility] 1.2.840 .114 [id number] Univers 03:41:00 14:05:00 Rashad Delgado [place] 350.1.13.10 ity [facility] 4.2.7.2.686 [facility] [id number] [address] 2022-04-06 2022-04-08 Outside nullFlavo MNA [id number] Memoria 13:28:33 04:59:59 Medical r Neurology 00 l Records Clark Hustisford 2022-04-06 2022-04-08 Outside nullFlavo MNA [id number] Memoria 13:28:33 04:59:59 Medical r Neurology 00 l Records Onyx H[place]ord 2022-04-06 2022-04-07 Outpatient MHMISCHER MHMISCHER [id number] 08:28:33 23:59:59 00 2022-03-29 2022-03-29 Outpatient Ofelia YEPEZ [facility] [id number] Univers 18:40:00 19:04:43 [facility] 2022-03-29 2022-03-29 Urgent David Annaia [facility] 1.2.840.114 [id number] Univers 18:40:00 19:04:43 [facility] 350.1.13.10 [facility] 4.2.7.2.686 Daniel as ANDREA?BLEA [id number] [address] MEDICAL OFFICE BUILDING 2022-03-29 2022-03-29 Outpatient Ofelia MARIO [facility] [id number] Univers 18:40:00 18:40:[address] [facility] 2022-03-27 2022-03-27 Ambulatory nullFlavo MNA [id number] Memoria 15:15:00 15:15:00 Pre-Reg r Neurology 06 l Clark Adam 2022-03-27 2022-03-27 Ambulatory nullFlavo MNA [id number] Memoria 15:15:00 15:15:00 Pre-Reg r Neurology 06 l Clark Medina 2022-03-27 2022-03-27 Outpatient MHIE MHIE [id number] Memoria 10:15:00 10:15:00 06 l Adam 2022-03-27 2022-03-27 [facility] [id number] 10:15:00 10:15:00 Jorge 06 [place] 2022-02-13 2022-02-14 Outpatient nullFlavo MNA [id number] Memoria 16:30:00 04:59:59 r Neurology 05 roberto Medina 2022-02-13 2022-02-14 Outpatient nullFlavo MNA [id number] Memoria 16:30:00 04:59:59 r Neurology 05 roberto Medina 2022-02-13 2022-02-13 [facility] [id number] 11:30:00 23:59:59 Jorge 05 West 2022-02-13 2022-02-13 Outpatient MHIE MHIE [id number] Memoria 11:30:00 11:30:00 05 roberto Medina 2021-10-16 2021-10-17 Outpatient nullFlavo MNA [id number] Memoria 16:45:00 05:59:59 r Neurology 04 roberto Medina 2021-10-16 2021-10-17 Outpatient nullFlavo MNA [id number] Memoria 16:45:00 05:59:59 r Neurology 04 roberto Mdeina 2021-10-16 2021-10-16 Out[facility] [id number] 10:45:00 23:59:59 Jorge Son Dodson 2021-10-16 2021-10-16 Outpatient MHIE MHIE [id number] Memoria 10:45:00 10:45:00 04 roberto Medina 2021-09-18 2021-09-19 Outpatient nullFlavo MNA [id number] Memoria 21:00:00 05:59:59 r Neurology 03 roberto Fergusonann 2021-09-18 2021-09-19 Outpatient nullFlavo MNA [id number] Memoria 21:00:00 05:59:59 r Neurology 03 roberto Fergusonann 2021-09-18 2021-09-18 Outpatient RENITA LyTNSCHER MISCHER [id number] 15:00:00 23:59:59 Jorge 03 West 2021-09-18 2021-09-18 Outpatient MHIE MHIE [id number] Memoria 15:00:00 15:00:00 03 roberto Medina 2021-08-15 2021-08-16 Outpatient nullFlavo MNA [id number] Memoria 20:00:00 04:59:59 r Neurology 02 l Clark Medina 2021-08-15 2021-08-16 Outpatient nullFlavo MNA [id number] Memoria 20:00:00 04:59:59 r Neurology 02 l Clark Medina 2021-08-15 2021-08-15 Outpatient Aliyah, [facility] [id number] 15:00:00 23:59:59 Jorge 02 West 2021-08-15 2021-08-15 Outpatient MHIE MHIE [id number] Memoria 15:00:00 15:00:00 02 roberto Medina 2020-12-05 2020-12-05 Outpatient R ZULMA [facility] [id number] Univers 13:00:00 13:00:[address] [facility] 2020-08-04 2020-08-04 Outpatient R ZULMA [facility] [id number] Univers 13:00:00 13:00:[address] [facility] 2020-08-02 2020-08-02 Outpatient R [facility] [id number] Univers [facility]:00[facility]00 [facility] 2020-05-12 Outpatient R IRAM MANJARREZ [facility] [id number] Univers 11:40:00 11:40:00 IRAM MANJARREZ i ty of [facility] 2020-05-02 2020-05-02 Outpatient R [facility] [id number] Univers 10:00:00 [facility] 2020-03-29 2020-03-29 Outpatient R ZULMA [facility] [id number] Univers 11:00:00 11:00:00 [facility] 2020-02-11 2020-02-11 [facility] [id number] Univers 09:30:00 09:30:00 [facility] 2020-02-05 2020-02-05 Outpatient R IRAM MANJARREZ [facility] 10 [id number] Univers 11:40:00 11:40:00 IRAM MANJARREZ i ty [facility] 2019-12-31 2019-12-31 Outpatient Ofelia MAYA [facility] [id number] Univers 10:00:00 10:00:00 SENDARELI xiong [facility] 2018-01-06 2018-01-06 Outpatient MHIE MHIE [id number] Memoria 13:00:00 13:00:00 01 roberto Medina 2018-01-06 2018-01-06 Outpatient MHIE MHIE [id number] Memoria 13:00:00 13:00:00 01 roberto Medina 2018-01-03 2018-01-03 Outpatient MHIE MHIE [id number] Memoria 11:00:00 11:00:00 00 roberto Medina 2018-01-03 2018-01-03 Outpatient MHIE MHIE [id number] Memoria 11:00:00 11:00:00 00 roberto Medina 2013-07-21 2013-07-22 Inpatient nullFlavo MH [id number] Memoria 05:27:00 10:40:00 r [facility] 01 roberto Medina 2013-07-21 2013-07-22 Inpatient nullFlavo MH [id number] Memoria 05:27:00 10:40:00 ofelia More 01 roberto Medina Results Test Description Test Time [...] = 0 ml. Results [facility] to provider. [facility] [id number] 19:42:00 Test Item Value Reference Range Interpretation [...] = 0 ml. Results reported to provider. [facility] URINALYSIS W/O SPECIFIC [id number] 19:42:00 Test Item Value Reference Range Interpretation [...] = 0 ml. Results reported to provider. [facility] [id number] 01:14:20 Test Item Value Reference Range Interpretation Comments NT-proBNP (test code 37 pg/mL See_Comment [Autom ated = 6748100402) message] The system which generated this result transmitted reference range : <=450. The reference range was not used to interpret this result as normal/abnormal . ANNIKA (test code = ANNIKA) Biotin has been reported to cause a negative bias, interpret results relative to patient's use of biotin. Lab Interpretation Normal (test code = 20081-1) [facility] WITH [id number] 01:13:59 Test Item Value Reference Range Interpretation Comments WBC (test code = See_Comment [Automated 6690-2) message] The sy stem which generated this result transmitted reference range : 4.30 - 11.10 10*3/?L. The reference range was not used to interpret this result as normal/abnormal . RBC (test code = See_Comment [Automated 789-8) message] The sy stem which generated this [...] RDW-SD (test code = 44.3 fL 39-49.9 89523-8) RDW-CV (test code = 14.8 % 12-15.5 788-0) PLT (test code = See_Comment [Automated 777-3) message] The sy stem which generated this result transmitted reference range : 166 - 358 10*3/ ?L. The reference r clementina was not used to interpret this result as normal/abnormal . MPV (test code = 11.3 fL 9.5-12.9 21514-5) NRBC/100 WBC (test See_Comment [Automat ed code = 1438494956) message] The system which generated this result transmitted reference range : 0.0 - 10.0 /100 WBCs. The refer ence range was not u sed to interpret th is result as normal/abnormal . NRBC x10^3 (test code See_Comment [Auto mated = 4540531512) message] The s ystem which generated this result transmitted reference range : 10*3/?L. The reference range was not used to interpret this result as normal/abnormal . GRAN MAT (NEUT) % 68.2 % (test code = 770-8) IMM GRAN % (test code 1.30 % = 2878955776) LYMPH % (test code = 22.3 % 736-9) MONO % (test code = 6.1 % 5905-5) EOS % (test code = 1.4 % 713-8) BASO % (test code = 0.7 % 706-2) GRAN MAT x10^3(ANC) 5.79 10*3/uL 1.88-7.09 (test code = 9826204361) IMM GRAN x10^3 (test 0.11 10*3/uL 0-0.06 H code = 7513002563) LYMPH x10^3 (test code 1.89 10*3/uL 1.32-3.29 = 731-0) MONO x10^3 (test code 0.52 10*3/uL 0.33-0.92 = 742-7) EOS x10^3 (test code = 0.12 10*3/uL 0.03-0.39 711-2) BASO x10^3 (test code 0.06 10*3/uL 0.01-0.07 = 704-7) Lab Interpretation Abnormal (test code = 56517-2) [facility]. METABOLIC PANEL (40245)2022-07-27 01:05:18 Test Item Value Reference Range Interpretation Comments NA (test code = 139 mmol/L 135-145 5336497416) K (test code = 5.1 mmol/L 3.5-5 H 9837338227) CL (test code = 101 mmol/L 98-108 3512965569) CO2 TOTAL (test code = 28 mmol/L 23-31 9161764475) AGAP (test code = 2-16 6983158397) BUN (test code = 23 mg/dL 7-23 8708174047) GLUCOSE (test code = 136 mg/dL 70-110 H 0950868459) CREATININE (test code = 0.77 mg/dL 0.5-1.04 5794262505) TOTAL BILI (test code = 0.6 mg/dL 0.1-1.7 1155791974) CALCIUM (test code = 10.4 mg/dL 8.6-10.6 8466988813) T PROTEIN (test code = 7.3 g/dL 6.3-8.2 2153859799) ALBUMIN (test code = 4.5 g/dL 3.5-5 6785516477) ALK PHOS (test code = 60 U/L 34-122 9182531680) ALTv (test code = 19 U/L 1742-6) AST(SGOT) (test code = 26 U/L 13-40 7870164816) eGFR (test code = mL/min/1.73m2 6000685734) ANNIKA (test code = ANNIKA) Association of [...] tests). Lab Interpretation Abnormal (test code = 96146-4) [facility], [facility], WITH FLEX 2019-02-23 14:06:00Reason [...] 02/23/2019 14:06:43 RAD, SPINE, CERVICAL, COMPLETE, WITH [id number] 16:26:00Reason for Exam:->cervical radiculopathy, acute history of [...] Silverio Higgins Verified Date/Time: 10/27/2018 16:26:17 POCT-GLUCOSE [id number] 09:24:00 Test Item Value Reference Range Interpretation Comments POC-GLUCOSE METER 160 mg/dL 70-110 H TESTED AT [place] [address] ([facility]) (test code = [place] 1530) [address] BUN AND [id number] 14:14:00 Test Item Value Reference Range Interpretation Comments BLOOD UREA NITROGEN 12 mg/dL 7-21 (BEAKER) (test code = 354) CREATININE (BEAKER) 0.74 mg/dL 0.57-1.25 (test code = 358) EGFR (BEAKER) (test mL/min/1.73 INSUFFIC IENT CLINICAL code = 1092) sq m DATA TO CALCULA TE ESTIMATED GFR. [id number] 14:12:00 Test Item Value Reference Range Interpretation Comments SODIUM (BEAKER) (test code = 381) 142 meq/L 136-145 POTASSIUM (BEAKER) (test code = 4.8 meq/L 3.5-5.1 379) CHLORIDE (BEAKER) (test code = 382) 106 meq/L 98-107 CO2 (BEAKER) (test code = 355) 27 meq/L 22-29 [id number] 14:12:00 Test Item Value Reference Range Interpretation Comments GLUCOSE RANDOM (BEAKER) (test code 123 mg/dL 70-105 H = 652) [id number] 13:28:00 Test Item Value Reference Range Interpretation Comments HEMOGLOBIN (BEAKER) (test code = 10.9 GM/DL 11.2-15.7 L 410) AFB CULTURE + [id number] 19:42:00 Test Item Value Reference Range Interpretation Comments CULTURE (BEAKER) (test No acid-fast bacilli code = 1095) isolated in 42 days AFB SMEAR (BEAKER) No acid fast bacilli (test code = 994) seen AFB CULTURE + [id number] 19:42:00 Test Item Value Reference Range Interpretation Comments CULTURE (BEAKER) (test No acid-fast bacilli code = 1095) isolated in 42 days AFB SMEAR (BEAKER) No acid fast bacilli (test code = 994) seen AFB CULTURE + [id number] 19:42:00 Test Item Value Reference Range Interpretation Comments CULTURE (BEAKER) (test No acid-fast bacilli code = 1095) isolated in 42 days AFB SMEAR (BEAKER) No acid fast bacilli (test code = 994) seen FUNGUS CULTURE + [id number] 07:50:00 Test Item Value Reference Range Interpretation Comments CULTURE (BEAKER) (test No fungus isolated in code = 1095) 28 days FUNGUS SMEAR (BEAKER) No fungi seen (test code = 1406) FUNGUS CULTURE + [id number] 07:50:00 Test Item Value Reference Range Interpretation Comments CULTURE (BEAKER) (test No fungus isolated in code = 1095) 28 days FUNGUS SMEAR (BEAKER) No fungi seen (test code = 1406) FUNGUS CULTURE + [id number] 07:50:00 Test Item Value Reference Range Interpretation Comments CULTURE (BEAKER) (test No fungus isolated in code = 1095) 28 days FUNGUS SMEAR (BEAKER) No fungi seen (test code = 1406) ANAEROBIC [id number] 17:16:00 Test Item Value Reference Range Interpretation Comments CULTURE (BEAKER) (test No anaerobes isolated code = 1095) ANAEROBIC [id number] 15:25:00 Test Item Value Reference Range Interpretation Comments CULTURE (BEAKER) (test No anaerobes isolated code = 1095) ANAEROBIC [id number] 15:25:00 Test Item Value Reference Range Interpretation Comments CULTURE (BEAKER) (test No anaerobes isolated code = 1095) BODY FLUID CULTURE + GRAM [id number] 16:23:00 Test Item Value Reference Range Interpretation Comments CULTURE (BEAKER) (test code = 1095) No growth Received in Aerobic BTA bottle only.BLOOD [id number] 11:00:00 Test Item Value Reference Range Interpretation Comments CULTURE (BEAKER) (test No growth in 5 days code = 1095) BLOOD [id number] 11:00:00 Test Item Value Reference Range Interpretation Comments CULTURE (BEAKER) (test No growth in 5 days code = 1095) ANAEROBIC [id number] 09:35:00 Test Item Value Reference Range Interpretation [...] (BEAKER) No organisms seen (test code = 40686) SURGICALLY OBTAINED CULTURE + GRAM [id number] 08:52:00 Test Item Value Reference Range Interpretation Comments CULTURE (BEAKER) (test code No growth = 1095) GRAM STAIN RESULT (BEAKER) 1+ WBCs (test code = 1123) GRAM STAIN RESULT (BEAKER) No organisms seen (test code = 24828) SURGICALLY OBTAINED CULTURE + GRAM [id number] 08:46:00 Test Item Value Reference Range Interpretation Comments CULTURE (BEAKER) (test code No growth = 1095) GRAM STAIN RESULT (BEAKER) 1+ WBCs (test code = 1123) GRAM STAIN RESULT (BEAKER) No organisms seen (test code = 77725) PERIPHERAL BLOOD SMEAR - PATHOLOGIST [id number] 12:29:00 Test Item Value Reference Range Interpretation Comments RBC MORPHOLOGY Hypochromasia (BEAKER) (test code = 2846) RBC MORPHOLOGY Anisocytosis (BEAKER) (test code = 10121) RBC MORPHOLOGY Poikilocytosis (BEAKER) (test code = 93235) RBC MORPHOLOGY Polychromasia (BEAKER) (test code = 89509) WBC MORPHOLOGY See comment (BEAKER) (test code = 2847) PLT MORPHOLOGY Unremarkable (BEAKER) (test code = 2848) PERIPHERAL SMR Hypochromic, normocytic REVIEW (BEAKER) anemia with mild (test code = 2640) anisopoikilocytosis with elliptocytes and spherocytes. Mild polychromasia. WBCs demonstrate rare myeloid precursors and lymphocytes with reactive/atypical forms. No blasts are identified. [id number] Luis Jalloh MD (electronic 112 (BEAKER) (test signature) code = 2849) POCT-GLUCOSE [id number] 12:06:00 Test Item Value Reference Range Interpretation Comments POC-GLUCOSE METER 95 mg/dL 70-110 TESTED AT [facility] 6720 (BEAKER) (test code = LE[place] [facility] [address] 1538) POCT-GLUCOSE [id number] 08:47:00 Test Item Value Reference Range Interpretation Comments POC-GLUCOSE METER 196 mg/dL 70-110 H TESTED AT [facility] 6720 (BEAKER) (test code = LEIDA Gilbert [facility] 1538) [address] BASIC METABOLIC [id number] 05:15:00 Test Item Value Reference Range Interpretation [...] ESTIMATED GFR. CBC W/PLT COUNT & AUTO [id number] 04:48:00 Test Item Value Reference Range Interpretation [...] L 0.00-0.20 (test code = 417) 0.00POCT-GLUCOSE [id number] 20:56:00 Test Item Value Reference Range Interpretation Comments POC-GLUCOSE METER 177 mg/dL 70-110 H TESTED AT [place] [address] ([facility]) ([facility] 1538[facility] [address] POCT-GLUCOSE [id number] 16:56:00 Test Item Value Reference Range Interpretation Comments POC-GLUCOSE METER 215 mg/dL 70-110 H TESTED AT [place] [address] ([facility]) (test code = [facility] 1538) [address] POCT-GLUCOSE [id number] 12:12:00 Test Item Value Reference Range Interpretation Comments POC-GLUCOSE METER 161 mg/dL 70-110 H TESTED AT [place] [address] ([facility]) (test code = LEIDA Gilbert [facility] 1538) [address] POCT-GLUCOSE [id number] 08:06:00 Test Item Value Reference Range Interpretation Comments POC-GLUCOSE METER 139 mg/dL 70-110 H TESTED AT [place] [address] ([facility]) (test code = [facility] 1538) [address] CBC W/PLT COUNT & AUTO [id number] 05:38:00 Test Item Value Reference Range Interpretation [...] 0.00-0.20 (test code = 417) 0.00BASI METABOLIC [id number] 05:28:00 Test Item Value Reference Range Interpretation [...] DATA TO CALCULA TE ESTIMATED GFR. POCT-GLUCOSE [id number] 21:25:00 Test Item Value Reference Range Interpretation Comments POC-GLUCOSE METER 214 mg/dL 70-110 H TESTED AT [facility] 6720 (BEAKER) (test code = [place] 1538) [address] (MANUAL DIFFERENTIAL)2017-04-13 18:07:00 Test Item Value Reference [...] MORPHOLOGY (BEAKER) (test code Normal = 762) [id number] 17:42:00 Test Item Value Reference Range Interpretation Comments FERRITIN (BEAKER) (test code = 361) 269 ng/mL 5-275 Effective 09/14/2014: Reference Range ChangeNew: Male 5-275 Previous: Male 22- 322 Female 5-275 Female 10-291HEPATITIS C [id number] 17:39:00 Test Item Value Reference Range Interpretation Comments HEPATITIS C ANTIBODY (BEAKER) Nonreactive Nonreactive (test code = 367) HIV-1 ANTIGEN WITH HIV-1/2 [id number] 17:39:00 Test Item Value Reference Range Interpretation Comments HIV-1 ANTIGEN WITH HIV 1\\T\\2 Nonreactive Nonreactive ANTIBODY (2) (BEAKER) (test code = 2586) CBC W/PLT COUNT & AUTO [id number] 17:19:00 Test Item Value Reference Range Interpretation [...] 20-55 L (test code = 2590) POCT-GLUCOSE [id number] 17:09:00 Test Item Value Reference Range Interpretation Comments POC-GLUCOSE METER 138 mg/dL 70-110 H TESTED AT [place] [address] (BEAKER) (test code = [place] 1538) [address] RETICULOCYTE [id number] 17:03:00 Test Item Value Reference Range Interpretation Comments RETICULOCYTE COUNT PCT (BEAKER) (test 1.3 % 0.4-2.9 code = 575) POCT-GLUCOSE [id number] 12:10:00 Test Item Value Reference Range Interpretation Comments POC-GLUCOSE METER 203 mg/dL 70-110 H TESTED AT [facility] 6720 ([facility]) (test code = [place] 1538) [address] HEMOGLOBIN [id number] 11:08:00 Test Item Value Reference Range Interpretation Comments HEMOGLOBIN A1C (BEAKER) (test code = 6.1 % 4.3-6.1 368) URINE [id number] 10:17:00 Test Item Value Reference Range Interpretation Comments CULTURE (BEAKER) (test code No growth = 1095) GRAM STAIN RESULT (BEAKER) <1+ WBCs (test code = 1123) GRAM STAIN RESULT (BEAKER) No organisms seen (test code = 25001) VANCOMYCIN LEVEL, [id number] 09:45:00 Test Item Value Reference Range Interpretation Comments VANCOMYCIN TROUGH (BEAKER) (test 15.6 ug/mL 10.0-20.0 code = 522) CBC W/PLT COUNT & AUTO [id number] 09:00:00 Test Item Value Reference Range Interpretation [...] L 0.00-0.20 (test code = 417) 0.00POCT-GLUCOSE [id number] 08:21:00 Test Item Value Reference Range Interpretation Comments POC-GLUCOSE METER 144 mg/dL 70-110 H TESTED AT [place] [address] ([facility]) (test code = [place] 1538) [address] BASIC METABOLIC [id number] 06:36:00 Test Item Value Reference Range Interpretation [...] DATA TO CALCULA TE ESTIMATED GFR. POCT-GLUCOSE [id number] 21:03:00 Test Item Value Reference Range Interpretation Comments POC-GLUCOSE METER 163 mg/dL 70-110 H TESTED AT [place] [address] ([facility]) (test code = LEIDA Gilbert [facility] 1538) [address] POCT-GLUCOSE [id number] 18:23:00 Test Item Value Reference Range Interpretation Comments POC-GLUCOSE METER 166 mg/dL 70-110 H TESTED AT [place] [address] ([facility]) (test code = LEIDA Gilbert [facility] 1538) [address] TSH/FREE T4 IF [id number] 16:47:00 Test Item Value Reference Range Interpretation Comments THYROID STIMULATING HORMONE 1.79 uIU/mL 0.35-4.94 ([facility]) (test code = 772) TISSUE [id number] 15:11:00Surgical Pathology Report Case: [id number] Authorizing Provider: Radha Gallo, Collected: 04/11/2017 1415 MD Ordering Location: [facility] PERIOPERATIVE Received: 04/12/2017 0820 SERVICES Pathologist: Mague Geiger MD Specimen: Explant RIGHT KNEE, REMOVAL OF ORTHOPEDIC HARDWARE: - ORTHOPEDIC HARDWARE, (GROSS DIAGNOSIS ONLY) at3:11 PMInfected right knee Hardware The specimen is received in a fluidless container labeled with the patient's information and labeled "hardware" and consists of an orthopedic hardware spacer measuring 6.1 x 3.6 x 0.8 cm. The serial number is "[id number]". There is also metal hardware measuring 5 x 0.6x 0.2 cm. The specimen is submitted for gross identification. CG/ewPOCT-GLUCOSE [id number] 12:42:00 Test Item Value Reference Range Interpretation Comments POC-GLUCOSE METER 145 mg/dL 70-110 H TESTED AT [place] [address] ([facility]) (test code = LEIDA Gilbert [facility] 1538) [address] POCT-GLUCOSE [id number] 08:05:00 Test Item Value Reference Range Interpretation Comments POC-GLUCOSE METER 125 mg/dL 70-110 H TESTED AT [place] [address] ([facility]) (test code = LEIDA Gilbert [facility] 1538) [address] BASIC METABOLIC [id number] 04:45:00 Test Item Value Reference Range Interpretation Comments SODIUM ([facility]) 137 meq/L 136-145 (test code = 381) [...] ESTIMATED GFR. CBC W/PLT COUNT & AUTO [id number] 04:29:00 Test Item Value Reference Range Interpretation [...] L 0.00-0.20 (test code = 417) 0.00POCT-GLUCOSE [id number] 21:07:00 Test Item Value Reference Range Interpretation Comments POC-GLUCOSE METER 212 mg/dL 70-110 H TESTED AT [place] [address] (BEAKER) (test code = [employer] [facility] Ofelia [facility] 1538) [address] POCT-GLUCOSE [id number] 16:46:00 Test Item Value Reference Range Interpretation Comments POC-GLUCOSE METER 127 mg/dL 70-110 H TESTED AT [place] [address] ([facility] (test code = [facility]) [address] URINALYSIS W/ [id number] 12:56:00 Test Item Value Reference Range Interpretation [...] SOURCE(BEAKER) (test code = 2795) BODY FLUID [id number] 12:35:00 Test Item Value Reference Range Interpretation Comments CRYSTALS, BODY FLUID No crystals seen. (BEAKER) (test code = 2165) [id number] Luis Jalloh MD (BEAKER) (test code = (electronic signature) 4806) POCT-GLUCOSE [id number] 12:34:00 Test Item Value Reference Range Interpretation Comments POC-GLUCOSE METER 122 mg/dL 70-110 H TESTED AT [place] [address] (BEAKER) (test code = [facility] 1538) [address] POCT-GLUCOSE [id number] 08:29:00 Test Item Value Reference Range Interpretation Comments POC-GLUCOSE METER 158 mg/dL 70-110 H TESTED AT [place] [address] ([facility]) (test code = [facility] 1538) [address]672 BODY FLUID CELL COUNT WITH [id number] 07:59:00 Test Item Value Reference Range Interpretation Comments APPEARANCE FLUID (BEAKER) (test Cloudy Clear A code = 510) COLOR FLUID (BEAKER) (test code Yellow Colorless, Straw A = 511) RBC FLUID (BEAKER) (test code = 3223 /cu mm <=1 H 513) ADJUSTED WBC FLUID (BEAKER) 20796 /cu mm <=5 H (test code = [...] Tube (test code = 2873) BASIC METABOLIC [id number] 05:09:00 Test Item Value Reference Range Interpretation [...] ESTIMATED GFR. CBC W/PLT COUNT & AUTO [id number] 05:06:00 Test Item Value Reference Range Interpretation [...] K/ L 0.00-0.20 (test code = 417) [facility] [id number] 11:25:00 Test Item Value Reference Range Interpretation Comments Gluc POC Comment 1 (test code = Sliding Scale Gluc POC Comment 1) [facility] GLUCOSE [id number] 11:25:00 Test Item Value Reference Range Interpretation Comments Gluc POC Comment 2 (test code = Notify RN/MD Gluc POC Comment 2) [facility] GLUCOSE [id number] 11:25:00 Test Item Value Reference Range Interpretation Comments Gluc POC (test code = Gluc POC) 167 70-99 H [facility] GLUCOSE [id number] 11:25:00 Test Item Value Reference Range Interpretation Comments Gluc POC Comment 1 (test code = Sliding Scale Gluc POC Comment 1) [facility] GLUCOSE [id number] 11:25:00 Test Item Value Reference Range Interpretation Comments Gluc POC Comment 2 (test code = Notify RN/MD Gluc POC Comment 2) [facility] GLUCOSE [id number] 11:25:00 Test Item Value Reference Range Interpretation Comments Gluc POC (test code = Gluc POC) 167 70-99 H [facility] GLUCOSE [id number] 11:25:00 Test Item Value Reference Range Interpretation Comments Gluc POC Comment 1 (test code = Sliding Scale Gluc POC Comment 1) [facility] GLUCOSE [id number] 11:25:00 Test Item Value Reference Range Interpretation Comments Gluc POC Comment 2 (test code = Notify RN/MD Gluc POC Comment 2) [facility] GLUCOSE [id number] 11:25:00 Test Item Value Reference Range Interpretation Comments Gluc POC (test code = Gluc POC) 167 70-99 H [facility] GLUCOSE [id number] 11:25:00 Test Item Value Reference Range Interpretation Comments Gluc POC Comment 1 (test code = Sliding Scale Gluc POC Comment 1) [facility] GLUCOSE [id number] 11:25:00 Test Item Value Reference Range Interpretation Comments Gluc POC Comment 2 (test code = Notify RN/MD Gluc POC Comment 2) [facility] GLUCOSE [id number] 11:25:00 Test Item Value Reference Range Interpretation Comments Gluc POC (test code = Gluc POC) 167 70-99 H [facility] GLUCOSE [id number] 11:25:00 Test Item Value Reference Range Interpretation Comments Gluc POC Comment 1 (test code = Sliding Scale Gluc POC Comment 1) [facility] GLUCOSE [id number] 11:25:00 Test Item Value Reference Range Interpretation Comments Gluc POC Comment 2 (test code = Notify RN/MD Gluc POC Comment 2) [facility] GLUCOSE [id number] 11:25:00 Test Item Value Reference Range Interpretation Comments Gluc POC (test code = Gluc POC) 167 70-99 H [facility] GLUCOSE [id number] 11:25:00 Test Item Value Reference Range Interpretation Comments Gluc POC Comment 1 (test code = Sliding Scale Gluc POC Comment 1) [facility] GLUCOSE [id number] 11:25:00 Test Item Value Reference Range Interpretation Comments Gluc POC Comment 2 (test code = Notify RN/MD Gluc POC Comment 2) [facility] GLUCOSE [id number] 11:25:00 Test Item Value Reference Range Interpretation Comments Gluc POC (test code = Gluc POC) 167 70-99 H [facility] GLUCOSE [id number] 11:25:00 Test Item Value Reference Range Interpretation Comments Gluc POC Comment 1 (test code = Sliding Scale Gluc POC Comment 1) [facility] GLUCOSE [id number] 11:25:00 Test Item Value Reference Range Interpretation Comments Gluc POC Comment 2 (test code = Notify RN/MD Gluc POC Comment 2) [facility] GLUCOSE [id number] 11:25:00 Test Item Value Reference Range Interpretation Comments Gluc POC (test code = Gluc POC) 167 70-99 H [facility] GLUCOSE [id number] 11:25:00 Test Item Value Reference Range Interpretation Comments Gluc POC Comment 1 (test code = Sliding Scale Gluc POC Comment 1) [facility] GLUCOSE [id number] 11:25:00 Test Item Value Reference Range Interpretation Comments Gluc POC Comment 2 (test code = Notify RN/ Gluc POC Comment 2) [facility] GLUCOSE [id number] 11:25:00 Test Item Value Reference Range Interpretation Comments Gluc POC (test code = Gluc POC) 167 70-99 H [facility] GLUCOSE [id number] 11:25:00 Test Item Value Reference Range Interpretation Comments Gluc POC Comment 1 (test code = Sliding Scale Gluc POC Comment 1) [facility] GLUCOSE [id number] 11:25:00 Test Item Value Reference Range Interpretation Comments Gluc POC Comment 2 (test code = Notify RN/ Gluc POC Comment 2) [facility] GLUCOSE [id number] 11:25:00 Test Item Value Reference Range Interpretation Comments Gluc POC (test code = Gluc POC) 167 70-99 H [facility] GLUCOSE [id number] 11:25:00 Test Item Value Reference Range Interpretation Comments Gluc POC Comment 1 (test code = Sliding Scale Gluc POC Comment 1) [facility] GLUCOSE [id number] 11:25:00 Test Item Value Reference Range Interpretation Comments Gluc POC Comment 2 (test code = Notify RN/MD Gluc POC Comment 2) [facility] GLUCOSE [id number] 11:25:00 Test Item Value Reference Range Interpretation Comments Gluc POC (test code = Gluc POC) 167 70-99 H [facility] GLUCOSE [id number] 11:25:00 Test Item Value Reference Range Interpretation Comments Gluc POC Comment 1 (test code = Sliding Scale Gluc POC Comment 1) [facility] GLUCOSE [id number] 11:25:00 Test Item Value Reference Range Interpretation Comments Gluc POC Comment 2 (test code = Notify RN/MD Gluc POC Comment 2) [facility] GLUCOSE [id number] 11:25:00 Test Item Value Reference Range Interpretation Comments Gluc POC (test code = Gluc POC) 167 70-99 H [facility] GLUCOSE [id number] 11:25:00 Test Item Value Reference Range Interpretation Comments Gluc POC Comment 1 (test code = Sliding Scale Gluc POC Comment 1) [facility] GLUCOSE [id number] 11:25:00 Test Item Value Reference Range Interpretation Comments Gluc POC Comment 2 (test code = Notify RN/MD Gluc POC Comment 2) [facility] GLUCOSE [id number] 11:25:00 Test Item Value Reference Range Interpretation Comments Gluc POC (test code = Gluc POC) 167 70-99 H [id number] 09:40:00 Test Item Value Reference Range Interpretation Comments eGFR (test code = eGFR) 75 [facility]KwkdlggVAPNPVBZQ4260-82-60 09:40:00 Test Item Value Reference Range Interpretation Comments Creatinine Lvl (test code = Creatinine 0.8 0.5-1.4 N Lvl) [facility]JevrhhgNIMRWYOEJ3092-54-08 09:40:00 Test Item Value Reference Range Interpretation Comments Sodium Lvl (test code = Sodium Lvl) 143 135-145 N [id number] 09:40:00 Test Item Value Reference Range Interpretation Comments BUN (test code = BUN) 21 7-22 N [facility]iscoHxchlozPWXQSMKFQ2862-86-15 09:40:00 Test Item Value Reference Range Interpretation Comments AGAP (test code = AGAP) 17.1 10.0-20.0 N [facility]iscoMxcthgbIISKKBDZP5010-75-01 09:40:00 Test Item Value Reference Range Interpretation Comments Calcium Lvl (test code = Calcium Lvl) 8.8 8.5-10.5 N [facility]iscoJgaaniqCVAPQYWMT5375-33-68 09:40:00 Test Item Value Reference Range Interpretation Comments CO2 (test code = CO2) 25 24-32 N [facility]iscoJifjpioNBZPFQERB9784-40-20 09:40:00 Test Item Value Reference Range Interpretation Comments Chloride Lvl (test code = Chloride Lvl) 105 95-109 N [facility]iscoXzmzhtjBGQKHZYPA5591-38-90 09:40:00 Test Item Value Reference Range Interpretation Comments Potassium Lvl (test code = Potassium 4.1 3.5-5.1 N Lvl) [facility]iscoYpneefuTCEHUPGNX6476-37-77 09:40:00 Test Item Value Reference Range Interpretation Comments Glucose Lvl (test code = Glucose Lvl) 126 70-99 H [facility]iscoKbitvrcYYPSUKGXV5850-01-27 09:40:00 Test Item Value Reference Range Interpretation Comments eGFR (test code = eGFR) 75 [facility]iscoSssxsraIVOBYOTCF2588-98-62 09:40:00 Test Item Value Reference Range Interpretation Comments Creatinine Lvl (test code = Creatinine 0.8 0.5-1.4 N Lvl) [facility]iscoOwldvxxEMCEMZEVY0802-32-16 09:40:00 Test Item Value Reference Range Interpretation Comments Sodium Lvl (test code = Sodium Lvl) 143 135-145 N [id number] 09:40:00 Test Item Value Reference Range Interpretation Comments BUN (test code = BUN) 21 7-22 N [id number] 09:40:00 Test Item Value Reference Range Interpretation Comments AGAP (test code = AGAP) 17.1 10.0-20.0 N [facility]iscoHyywcsfHBZIDRXWC1432-81-65 09:40:00 Test Item Value Reference Range Interpretation Comments Calcium Lvl (test code = Calcium Lvl) 8.8 8.5-10.5 N [facility]iscoQibxqvbOFFHMHOSB0072-45-57 09:40:00 Test Item Value Reference Range Interpretation Comments CO2 (test code = CO2) 25 24-32 N [facility]iscoEmbevraZWYMYSTJB6325-42-18 09:40:00 Test Item Value Reference Range Interpretation Comments Chloride Lvl (test code = Chloride Lvl) 105 95-109 N [facility]iscoErtwdtgTGPFGGHLQ0581-54-34 09:40:00 Test Item Value Reference Range Interpretation Comments Potassium Lvl (test code = Potassium 4.1 3.5-5.1 N Lvl) [facility]iscoEzcrlgcINNXBGSZD3206-20-20 09:40:00 Test Item Value Reference Range Interpretation Comments Glucose Lvl (test code = Glucose Lvl) 126 70-99 H [facility]iscoJeaqywnHLTSNLHYK7014-88-84 09:40:00 Test Item Value Reference Range Interpretation Comments eGFR (test code = eGFR) 75 [facility]iscoArvgyhzEGQXTLWFE4668-33-27 09:40:00 Test Item Value Reference Range Interpretation Comments Creatinine Lvl (test code = Creatinine 0.8 0.5-1.4 N Lvl) [facility]iscoHldhsfrBCZHBOICP0583-15-50 09:40:00 Test Item Value Reference Range Interpretation Comments Sodium Lvl (test code = Sodium Lvl) 143 135-145 N [facility]iscoOvvetlpBZOCGBQET3230-27-51 09:40:00 Test Item Value Reference Range Interpretation Comments BUN (test code = BUN) 21 7-22 N [facility]iscoWuaiovgIMRQRXWWJ0777-73-93 09:40:00 Test Item Value Reference Range Interpretation Comments AGAP (test code = AGAP) 17.1 10.0-20.0 N [facility]iscoDsizttoFUKDIRNIS6124-41-99 09:40:00 Test Item Value Reference Range Interpretation Comments Calcium Lvl (test code = Calcium Lvl) 8.8 8.5-10.5 N [facility]iscoIvyyshlSPINLCEEG3446-36-61 09:40:00 Test Item Value Reference Range Interpretation Comments CO2 (test code = CO2) 25 24-32 N [facility]iscoNfimgmiRERVLGSOP3714-00-74 09:40:00 Test Item Value Reference Range Interpretation Comments Chloride Lvl (test code = Chloride Lvl) 105 95-109 N [facility]iscoScvovckZIBQDRCRW2569-50-01 09:40:00 Test Item Value Reference Range Interpretation Comments Potassium Lvl (test code = Potassium 4.1 3.5-5.1 N Lvl) [facility]iscoLecxdiuVSSWFGSZM7096-63-70 09:40:00 Test Item Value Reference Range Interpretation Comments Glucose Lvl (test code = Glucose Lvl) 126 70-99 H [facility]iscoLartlhhXYXGXVHXK7667-04-07 09:40:00 Test Item Value Reference Range Interpretation Comments eGFR (test code = eGFR) 75 [facility]iscoIugskyeOHMVTLRMG1020-17-06 09:40:00 Test Item Value Reference Range Interpretation Comments Creatinine Lvl (test code = Creatinine 0.8 0.5-1.4 N Lvl) [facility]iscoUgfcwhkXQCREWYHN5375-36-40 09:40:00 Test Item Value Reference Range Interpretation Comments Sodium Lvl (test code = Sodium Lvl) 143 135-145 N [facility]iscoHksgideFQXJYRGRK3843-69-03 09:40:00 Test Item Value Reference Range Interpretation Comments BUN (test code = BUN) 21 7-22 N [facility]iscoRkebgqiXUVJZLTAG6507-16-14 09:40:00 Test Item Value Reference Range Interpretation Comments AGAP (test code = AGAP) 17.1 10.0-20.0 N [facility]iscoPrbsntsFXPTXTMAV4402-03-27 09:40:00 Test Item Value Reference Range Interpretation Comments Calcium Lvl (test code = Calcium Lvl) 8.8 8.5-10.5 N [facility]iscoLzsjrmrPLKUYAUHW5574-21-92 09:40:00 Test Item Value Reference Range Interpretation Comments CO2 (test code = CO2) 25 24-32 N [facility]iscoKqtzcfcTRHDXHIKV8889-04-09 09:40:00 Test Item Value Reference Range Interpretation Comments Chloride Lvl (test code = Chloride Lvl) 105 95-109 N [facility]iscoRiozplxLSDOIGRKE6514-06-28 09:40:00 Test Item Value Reference Range Interpretation Comments Potassium Lvl (test code = Potassium 4.1 3.5-5.1 N Lvl) [facility]iscoYbzriecRSBUDTYTK2642-60-47 09:40:00 Test Item Value Reference Range Interpretation Comments Glucose Lvl (test code = Glucose Lvl) 126 70-99 H [facility]iscoFtcllqtSEKYKLAHB9170-74-41 09:40:00 Test Item Value Reference Range Interpretation Comments eGFR (test code = eGFR) 75 [facility]iscoEvjxyynIKWZLRMUZ9610-20-38 09:40:00 Test Item Value Reference Range Interpretation Comments Creatinine Lvl (test code = Creatinine 0.8 0.5-1.4 N Lvl) [facility]iscoGetuuhuAQYJFBQZN5418-02-82 09:40:00 Test Item Value Reference Range Interpretation Comments Sodium Lvl (test code = Sodium Lvl) 143 135-145 N [facility]iscoJoshwxyXMMBUBXCL6046-08-20 09:40:00 Test Item Value Reference Range Interpretation Comments BUN (test code = BUN) 21 7-22 N [facility]iscoLnsrbnhNCEOISQZC9205-31-24 09:40:00 Test Item Value Reference Range Interpretation Comments AGAP (test code = AGAP) 17.1 10.0-20.0 N [facility]iscoPtiqrsjSZTKZQKQJ8344-87-15 09:40:00 Test Item Value Reference Range Interpretation Comments Calcium Lvl (test code = Calcium Lvl) 8.8 8.5-10.5 N [facility]iscoFgzreayQUTRABAFN7434-22-69 09:40:00 Test Item Value Reference Range Interpretation Comments CO2 (test code = CO2) 25 24-32 N [facility]iscoUudovgtZPFDMGDLG8885-73-34 09:40:00 Test Item Value Reference Range Interpretation Comments Chloride Lvl (test code = Chloride Lvl) 105 95-109 N [facility]iscoCdxvmsaIVPMGDHOE6636-42-79 09:40:00 Test Item Value Reference Range Interpretation Comments Potassium Lvl (test code = Potassium 4.1 3.5-5.1 N Lvl) [facility]iscoVhqpnonFIEKHFERC0876-23-13 09:40:00 Test Item Value Reference Range Interpretation Comments Glucose Lvl (test code = Glucose Lvl) 126 70-99 H [facility]iscoSgovpxiURTZGMVJT5981-54-97 09:40:00 Test Item Value Reference Range Interpretation Comments eGFR (test code = eGFR) 75 [facility]iscoIhvhnszHPZNBDYGM3984-14-53 09:40:00 Test Item Value Reference Range Interpretation Comments Creatinine Lvl (test code = Creatinine 0.8 0.5-1.4 N Lvl) [facility]iscoVlwnfkdSTUMQMWNF8126-69-07 09:40:00 Test Item Value Reference Range Interpretation Comments Sodium Lvl (test code = Sodium Lvl) 143 135-145 N [facility]iscoPflbdwsACOSPZZIG6407-24-70 09:40:00 Test Item Value Reference Range Interpretation Comments BUN (test code = BUN) 21 7-22 N [facility]iscoWywtbomSGNHUFGUY0564-00-45 09:40:00 Test Item Value Reference Range Interpretation Comments AGAP (test code = AGAP) 17.1 10.0-20.0 N [facility]iscoEacxxgyTQNAKEEKD6063-64-76 09:40:00 Test Item Value Reference Range Interpretation Comments Calcium Lvl (test code = Calcium Lvl) 8.8 8.5-10.5 N [facility]iscoYikrfogBWUTVUTQN3785-05-70 09:40:00 Test Item Value Reference Range Interpretation Comments CO2 (test code = CO2) 25 24-32 N [facility]iscoEncecdfLKRKNMQVH6272-87-57 09:40:00 Test Item Value Reference Range Interpretation Comments Chloride Lvl (test code = Chloride Lvl) 105 95-109 N [facility]iscoNlgkjatWHUMUUTGD0436-52-50 09:40:00 Test Item Value Reference Range Interpretation Comments Potassium Lvl (test code = Potassium 4.1 3.5-5.1 N Lvl) [facility]iscoKfedgtmCMJVSUXIS1845-47-43 09:40:00 Test Item Value Reference Range Interpretation Comments Glucose Lvl (test code = Glucose Lvl) 126 70-99 H [facility]iscoVxhumojUYCGXFMEZ2074-44-26 09:40:00 Test Item Value Reference Range Interpretation Comments eGFR (test code = eGFR) 75 [facility]iscoCujnyaqUGRCTLGXZ3386-49-97 09:40:00 Test Item Value Reference Range Interpretation Comments Creatinine Lvl (test code = Creatinine 0.8 0.5-1.4 N Lvl) [facility]iscoUkrooxjHCOIBEBCP5970-07-21 09:40:00 Test Item Value Reference Range Interpretation Comments Sodium Lvl (test code = Sodium Lvl) 143 135-145 N [facility]iscoAlsbszpRYORBSSUG9547-46-89 09:40:00 Test Item Value Reference Range Interpretation Comments BUN (test code = BUN) 21 7-22 N [facility]iscoKqgyfbuQLTJUUBHV4615-42-08 09:40:00 Test Item Value Reference Range Interpretation Comments AGAP (test code = AGAP) 17.1 10.0-20.0 N [facility]iscoXgsatqoYFBPENCIJ4864-48-46 09:40:00 Test Item Value Reference Range Interpretation Comments Calcium Lvl (test code = Calcium Lvl) 8.8 8.5-10.5 N [facility]iscoHgfrmxlVBDVEHLYZ2699-65-12 09:40:00 Test Item Value Reference Range Interpretation Comments CO2 (test code = CO2) 25 24-32 N [facility]iscoBfcplveHPBGHGRGL6542-09-21 09:40:00 Test Item Value Reference Range Interpretation Comments Chloride Lvl (test code = Chloride Lvl) 105 95-109 N [facility]iscoJjxziydNSEOBMFGB9441-83-86 09:40:00 Test Item Value Reference Range Interpretation Comments Potassium Lvl (test code = Potassium 4.1 3.5-5.1 N Lvl) [facility]iscoYnlqzmpAFQPTEBSL6418-30-34 09:40:00 Test Item Value Reference Range Interpretation Comments Glucose Lvl (test code = Glucose Lvl) 126 70-99 H [facility]iscoJiogcgaDEXYRVHKX6313-71-85 09:40:00 Test Item Value Reference Range Interpretation Comments eGFR (test code = eGFR) 75 [facility]iscoWopooawBVXGTSFGI1674-74-57 09:40:00 Test Item Value Reference Range Interpretation Comments Creatinine Lvl (test code = Creatinine 0.8 0.5-1.4 N Lvl) [facility]iscoOmjctcpKWQLOLLTK8577-26-18 09:40:00 Test Item Value Reference Range Interpretation Comments Sodium Lvl (test code = Sodium Lvl) 143 135-145 N [facility]iscoDmtcqvmJPWEZNGUS5729-22-54 09:40:00 Test Item Value Reference Range Interpretation Comments BUN (test code = BUN) 21 7-22 N [facility]iscoYizzlmbOVESBVHLG4383-93-20 09:40:00 Test Item Value Reference Range Interpretation Comments eGFR (test code = eGFR) 75 [facility]iscoHclccahIUTNYBZOO0204-72-47 09:40:00 Test Item Value Reference Range Interpretation Comments Creatinine Lvl (test code = Creatinine 0.8 0.5-1.4 N Lvl) [facility]iscoRhntrtlUJKMSVOHC7583-26-29 09:40:00 Test Item Value Reference Range Interpretation Comments Sodium Lvl (test code = Sodium Lvl) 143 135-145 N [facility]iscoVyuoqhlZWFFTUPYI8477-48-03 09:40:00 Test Item Value Reference Range Interpretation Comments BUN (test code = BUN) 21 7-22 N [facility]iscoNflmzoaKUSYOKGCP8716-85-28 09:40:00 Test Item Value Reference Range Interpretation Comments AGAP (test code = AGAP) 17.1 10.0-20.0 N [facility]iscoTpixkapWJEPGZOLP7816-58-32 09:40:00 Test Item Value Reference Range Interpretation Comments Calcium Lvl (test code = Calcium Lvl) 8.8 8.5-10.5 N [facility]iscoAsgzywbABVSXDIHT8533-21-57 09:40:00 Test Item Value Reference Range Interpretation Comments CO2 (test code = CO2) 25 24-32 N [facility]iscoZzklszkRAXBGHWBM0188-61-18 09:40:00 Test Item Value Reference Range Interpretation Comments Chloride Lvl (test code = Chloride Lvl) 105 95-109 N [facility]iscoUqnzkszQQAXBGXYR6036-46-32 09:40:00 Test Item Value Reference Range Interpretation Comments AGAP (test code = AGAP) 17.1 10.0-20.0 N [facility]iscoKqrmffaCZBQGBPDK1839-06-44 09:40:00 Test Item Value Reference Range Interpretation Comments Potassium Lvl (test code = Potassium 4.1 3.5-5.1 N Lvl) [facility]iscoEdmtpfcGBSMIDZXW0141-94-11 09:40:00 Test Item Value Reference Range Interpretation Comments Glucose Lvl (test code = Glucose Lvl) 126 70-99 H [facility]iscoFiiigktBWYXDHSBA4690-48-12 09:40:00 Test Item Value Reference Range Interpretation Comments Calcium Lvl (test code = Calcium Lvl) 8.8 8.5-10.5 N [facility]iscoCklhimxAFKGKJCIH3119-18-45 09:40:00 Test Item Value Reference Range Interpretation Comments CO2 (test code = CO2) 25 24-32 N [facility]iscoOfveymfLXTELCBNM7378-44-85 09:40:00 Test Item Value Reference Range Interpretation Comments Chloride Lvl (test code = Chloride Lvl) 105 95-109 N [facility]iscoMnlaovpVXLTDPDLS6142-31-93 09:40:00 Test Item Value Reference Range Interpretation Comments Potassium Lvl (test code = Potassium 4.1 3.5-5.1 N Lvl) [facility]iscoUuxkyrhBGANWOHRW0000-73-65 09:40:00 Test Item Value Reference Range Interpretation Comments Glucose Lvl (test code = Glucose Lvl) 126 70-99 H [facility]iscoBhpskagWXGQLTZYF3805-30-96 09:40:00 Test Item Value Reference Range Interpretation Comments eGFR (test code = eGFR) 75 [facility]iscoZiaaiiyVJMNMLPPJ4630-46-20 09:40:00 Test Item Value Reference Range Interpretation Comments Creatinine Lvl (test code = Creatinine 0.8 0.5-1.4 N Lvl) [facility]iscoHdohjsrQJACCNDCD7875-70-40 09:40:00 Test Item Value Reference Range Interpretation Comments Sodium Lvl (test code = Sodium Lvl) 143 135-145 N [facility]iscoIojmjegJUMIIPFNS9562-94-03 09:40:00 Test Item Value Reference Range Interpretation Comments BUN (test code = BUN) 21 7-22 N [facility]iscoInowqseCZKVWPHQW9479-53-15 09:40:00 Test Item Value Reference Range Interpretation Comments AGAP (test code = AGAP) 17.1 10.0-20.0 N [facility]iscoGhualiuKBOHDVKMG3092-94-64 09:40:00 Test Item Value Reference Range Interpretation Comments Calcium Lvl (test code = Calcium Lvl) 8.8 8.5-10.5 N [facility]iscoAgpnhsbXOCPQNLLB9330-72-95 09:40:00 Test Item Value Reference Range Interpretation Comments CO2 (test code = CO2) 25 24-32 N [facility]iscoEdtwpieKXHSDOYFW2282-58-22 09:40:00 Test Item Value Reference Range Interpretation Comments Chloride Lvl (test code = Chloride Lvl) 105 95-109 N [facility]iscoNjapjxfVWUAFRVYP0850-64-26 09:40:00 Test Item Value Reference Range Interpretation Comments Potassium Lvl (test code = Potassium 4.1 3.5-5.1 N Lvl) [facility]iscoVlypwzfEJIVNQPCD3148-60-06 09:40:00 Test Item Value Reference Range Interpretation Comments Glucose Lvl (test code = Glucose Lvl) 126 70-99 H [facility]iscoSmfwoyeJWVGVEDUL9815-78-17 09:40:00 Test Item Value Reference Range Interpretation Comments eGFR (test code = eGFR) 75 [facility]iscoTiafxjsQMQWZOODV7482-37-85 09:40:00 Test Item Value Reference Range Interpretation Comments Creatinine Lvl (test code = Creatinine 0.8 0.5-1.4 N Lvl) [facility]iscoQkifnnlTISZLLETX1174-40-08 09:40:00 Test Item Value Reference Range Interpretation Comments Sodium Lvl (test code = Sodium Lvl) 143 135-145 N [facility]iscoZeyagxcWCDKZXFCP9298-02-98 09:40:00 Test Item Value Reference Range Interpretation Comments BUN (test code = BUN) 21 7-22 N [facility]iscoZvqrowbKNLWCZTMM9870-96-04 09:40:00 Test Item Value Reference Range Interpretation Comments AGAP (test code = AGAP) 17.1 10.0-20.0 N [facility]iscoJwhtqkfZKGTSIYLZ8177-21-42 09:40:00 Test Item Value Reference Range Interpretation Comments Calcium Lvl (test code = Calcium Lvl) 8.8 8.5-10.5 N [facility]iscoGrpnmvaKBJGARYKY1532-02-34 09:40:00 Test Item Value Reference Range Interpretation Comments CO2 (test code = CO2) 25 24-32 N [facility]iscoQkewouwQHSJRTYYX8260-03-40 09:40:00 Test Item Value Reference Range Interpretation Comments Chloride Lvl (test code = Chloride Lvl) 105 95-109 N [facility]iscoBogchpxJFLEBPWGW7018-96-65 09:40:00 Test Item Value Reference Range Interpretation Comments Potassium Lvl (test code = Potassium 4.1 3.5-5.1 N Lvl) [facility]iscoPwgujoqVGPMPRZHV0412-71-69 09:40:00 Test Item Value Reference Range Interpretation Comments Glucose Lvl (test code = Glucose Lvl) 126 70-99 H [facility]iscoEkszspnSMWNCYFYD7475-88-45 09:40:00 Test Item Value Reference Range Interpretation Comments eGFR (test code = eGFR) 75 [facility]PlmkanvIILONNAEY9128-11-04 09:40:00 Test Item Value Reference Range Interpretation Comments Creatinine Lvl (test code = Creatinine 0.8 0.5-1.4 N Lvl) [facility]HcxagnpPZCDSMHPV9028-75-80 09:40:00 Test Item Value Reference Range Interpretation Comments Sodium Lvl (test code = Sodium Lvl) 143 135-145 N [facility]iscoNyjpebfESBRTRPEQ0717-29-53 09:40:00 Test Item Value Reference Range Interpretation Comments BUN (test code = BUN) 21 7-22 N [facility]iscoYakccguVINCAOWWV9529-73-62 09:40:00 Test Item Value Reference Range Interpretation Comments AGAP (test code = AGAP) 17.1 10.0-20.0 N [facility]iscoHiklxoeETKJGHSAF6142-73-29 09:40:00 Test Item Value Reference Range Interpretation Comments Calcium Lvl (test code = Calcium Lvl) 8.8 8.5-10.5 N [facility]iscoDiabiclMCKAGITWE4931-71-22 09:40:00 Test Item Value Reference Range Interpretation Comments CO2 (test code = CO2) 25 24-32 N [facility]iscoJqwpqhiNXMYRTCGE0599-27-25 09:40:00 Test Item Value Reference Range Interpretation Comments Chloride Lvl (test code = Chloride Lvl) 105 95-109 N [facility]iscoOqbkxfiHWLZRFEWJ8555-22-81 09:40:00 Test Item Value Reference Range Interpretation Comments Potassium Lvl (test code = Potassium 4.1 3.5-5.1 N Lvl) [facility]QpzpeyjBRXORXZFQ7077-00-51 09:40:00 Test Item Value Reference Range Interpretation Comments Glucose Lvl (test code = Glucose Lvl) 126 70-99 H [facility] GLUCOSE [id number] 02:50:00 Test Item Value Reference Range Interpretation Comments Gluc POC (test code = Gluc POC) 221 70-99 H [facility] GLUCOSE RRHRIOJ4878-03-03 02:50:00 Test Item Value Reference Range Interpretation Comments Gluc POC Comment 1 (test code Assess Patient = Gluc POC Comment 1) [facility] GLUCOSE [id number] 02:50:00 Test Item Value Reference Range Interpretation Comments Gluc POC (test code = Gluc POC) 221 70-99 H [facility] GLUCOSE [id number] 02:50:00 Test Item Value Reference Range Interpretation Comments Gluc POC Comment 1 (test code Assess Patient = Gluc POC Comment 1) [facility] GLUCOSE [id number] 02:50:00 Test Item Value Reference Range Interpretation Comments Gluc POC (test code = Gluc POC) 221 70-99 H [facility] GLUCOSE [id number] 02:50:00 Test Item Value Reference Range Interpretation Comments Gluc POC Comment 1 (test code Assess Patient = Gluc POC Comment 1) [facility] GLUCOSE [id number] 02:50:00 Test Item Value Reference Range Interpretation Comments Gluc POC (test code = Gluc POC) 221 70-99 H [facility] GLUCOSE [id number] 02:50:00 Test Item Value Reference Range Interpretation Comments Gluc POC Comment 1 (test code Assess Patient = Gluc POC Comment 1) [facility] GLUCOSE [id number] 02:50:00 Test Item Value Reference Range Interpretation Comments Gluc POC (test code = Gluc POC) 221 70-99 H [facility] GLUCOSE [id number] 02:50:00 Test Item Value Reference Range Interpretation Comments Gluc POC Comment 1 (test code Assess Patient = Gluc POC Comment 1) [facility] GLUCOSE [id number] 02:50:00 Test Item Value Reference Range Interpretation Comments Gluc POC (test code = Gluc POC) 221 70-99 H [facility] GLUCOSE [id number] 02:50:00 Test Item Value Reference Range Interpretation Comments Gluc POC Comment 1 (test code Assess Patient = Gluc POC Comment 1) [facility] GLUCOSE [id number] 02:50:00 Test Item Value Reference Range Interpretation Comments Gluc POC (test code = Gluc POC) 221 70-99 H [facility] GLUCOSE [id number] 02:50:00 Test Item Value Reference Range Interpretation Comments Gluc POC Comment 1 (test code Assess Patient = Gluc POC Comment 1) [facility] GLUCOSE [id number] 02:50:00 Test Item Value Reference Range Interpretation Comments Gluc POC (test code = Gluc POC) 221 70-99 H [facility] GLUCOSE [id number] 02:50:00 Test Item Value Reference Range Interpretation Comments Gluc POC Comment 1 (test code Assess Patient = Gluc POC Comment 1) [facility] GLUCOSE [id number] 02:50:00 Test Item Value Reference Range Interpretation Comments Gluc POC (test code = Gluc POC) 221 70-99 H [facility] GLUCOSE [id number] 02:50:00 Test Item Value Reference Range Interpretation Comments Gluc POC Comment 1 (test code Assess Patient = Gluc POC Comment 1) [facility] GLUCOSE [id number] 02:50:00 Test Item Value Reference Range Interpretation Comments Gluc POC (test code = Gluc POC) 221 70-99 H [facility] GLUCOSE [id number] 02:50:00 Test Item Value Reference Range Interpretation Comments Gluc POC Comment 1 (test code Assess Patient = Gluc POC Comment 1) [facility] GLUCOSE [id number] 02:50:00 Test Item Value Reference Range Interpretation Comments Gluc POC (test code = Gluc POC) 221 70-99 H [facility] GLUCOSE [id number] 02:50:00 Test Item Value Reference Range Interpretation Comments Gluc POC Comment 1 (test code Assess Patient = Gluc POC Comment 1) [facility] GLUCOSE [id number] 02:50:00 Test Item Value Reference Range Interpretation Comments Gluc POC (test code = Gluc POC) 221 70-99 H [facility] GLUCOSE [id number] 02:50:00 Test Item Value Reference Range Interpretation Comments Gluc POC Comment 1 (test code Assess Patient = Gluc POC Comment 1) [facility]CqujhmvPIHVBWDBZ4153-04-81 23:30:19 Test Item Value Reference Range Interpretation Comments eGFR (test code = eGFR) 65 [facility]YjfuqffRQFRSDJNC7838-44-57 23:30:19 Test Item Value Reference Range Interpretation Comments AGAP (test code = AGAP) 15.3 10.0-20.0 N [facility]FacxtwjIOKSMLFTN2828-26-57 23:30:19 Test Item Value Reference Range Interpretation Comments Sodium Lvl (test code = Sodium Lvl) 140 135-145 N [facility]iscoHfwlgnrBAVJCLXWR1385-42-41 23:30:19 Test Item Value Reference Range Interpretation Comments Creatinine Lvl (test code = Creatinine 0.9 0.5-1.4 N Lvl) [facility]iscoSdmvtiuOLVCWTYEQ6190-44-70 23:30:19 Test Item Value Reference Range Interpretation Comments Calcium Lvl (test code = Calcium Lvl) 8.4 8.5-10.5 L [facility]iscoTdyndamCVZIXUMEH6547-05-97 23:30:19 Test Item Value Reference Range Interpretation Comments CO2 (test code = CO2) 26 24-32 N [facility]iscoAuhijfhSZKUBGIMK1016-99-12 23:30:19 Test Item Value Reference Range Interpretation Comments Potassium Lvl (test code = Potassium 4.3 3.5-5.1 N Lvl) [facility]iscoNvwuvktLRZAVRJAO8557-19-49 23:30:19 Test Item Value Reference Range Interpretation Comments Chloride Lvl (test code = Chloride Lvl) 103 95-109 N [facility]iscoFbcidteLZKEITESP7503-53-55 23:30:19 Test Item Value Reference Range Interpretation Comments Glucose Lvl (test code = Glucose Lvl) 178 70-99 H [facility]iscoDritsblWLQCUPXDU6889-05-24 23:30:19 Test Item Value Reference Range Interpretation Comments BUN (test code = BUN) 18 7-22 N [facility]iscoIqqdjfcAPTOMZLSU1174-70-06 23:30:19 Test Item Value Reference Range Interpretation Comments eGFR (test code = eGFR) 65 [facility]iscoWavhhsjJQLVEZQHP3821-88-44 23:30:19 Test Item Value Reference Range Interpretation Comments AGAP (test code = AGAP) 15.3 10.0-20.0 N [facility]iscoPupnnqdWRRSVGCEJ1525-62-15 23:30:19 Test Item Value Reference Range Interpretation Comments Sodium Lvl (test code = Sodium Lvl) 140 135-145 N [facility]iscoJlbyxtxBIIMQSSBJ1317-95-20 23:30:19 Test Item Value Reference Range Interpretation Comments Creatinine Lvl (test code = Creatinine 0.9 0.5-1.4 N Lvl) [facility]iscoXudzdjuBIQICSHCQ0377-78-11 23:30:19 Test Item Value Reference Range Interpretation Comments Calcium Lvl (test code = Calcium Lvl) 8.4 8.5-10.5 L [facility]iscoPmsfcxyCSPSJMGSV7049-55-59 23:30:19 Test Item Value Reference Range Interpretation Comments CO2 (test code = CO2) 26 24-32 N [facility]iscoWcpyfxbOKQIYHJXV5237-61-15 23:30:19 Test Item Value Reference Range Interpretation Comments Potassium Lvl (test code = Potassium 4.3 3.5-5.1 N Lvl) [facility]iscoHqjybhhMDRTKAFLV9411-32-83 23:30:19 Test Item Value Reference Range Interpretation Comments Chloride Lvl (test code = Chloride Lvl) 103 95-109 N [facility]iscoIxjlswxZJLHASMBY1484-09-05 23:30:19 Test Item Value Reference Range Interpretation Comments Glucose Lvl (test code = Glucose Lvl) 178 70-99 H [facility]iscoZqqmtidFBZDIUNTV0058-22-82 23:30:19 Test Item Value Reference Range Interpretation Comments BUN (test code = BUN) 18 7-22 N [facility]iscoCkzphltBNOSRVRBX7379-36-46 23:30:19 Test Item Value Reference Range Interpretation Comments eGFR (test code = eGFR) 65 [facility]iscoVswmkccQERHVZNLE9453-93-19 23:30:19 Test Item Value Reference Range Interpretation Comments AGAP (test code = AGAP) 15.3 10.0-20.0 N [facility]iscoGvtrpxkKHPZSCPZU8740-47-03 23:30:19 Test Item Value Reference Range Interpretation Comments Sodium Lvl (test code = Sodium Lvl) 140 135-145 N [facility]iscoDjvamupZDSXZINQX2568-09-25 23:30:19 Test Item Value Reference Range Interpretation Comments Creatinine Lvl (test code = Creatinine 0.9 0.5-1.4 N Lvl) [facility]iscoRygdlzdEUSBLPVYL8259-93-09 23:30:19 Test Item Value Reference Range Interpretation Comments Calcium Lvl (test code = Calcium Lvl) 8.4 8.5-10.5 L [facility]iscoLlelcdrFVEVXYQAE4834-97-47 23:30:19 Test Item Value Reference Range Interpretation Comments CO2 (test code = CO2) 26 24-32 N [facility]iscoWcptndrQVPJVBPDI9218-97-88 23:30:19 Test Item Value Reference Range Interpretation Comments Potassium Lvl (test code = Potassium 4.3 3.5-5.1 N Lvl) [facility]iscoBtsmasyJQUWCTNLJ4108-97-60 23:30:19 Test Item Value Reference Range Interpretation Comments Chloride Lvl (test code = Chloride Lvl) 103 95-109 N [facility]iscoMowusncOIAGOEHTT8557-94-70 23:30:19 Test Item Value Reference Range Interpretation Comments Glucose Lvl (test code = Glucose Lvl) 178 70-99 H [facility]iscoHkhpveoCTYYVEITU7982-21-89 23:30:19 Test Item Value Reference Range Interpretation Comments BUN (test code = BUN) 18 7-22 N [facility]iscoIldocnfHJCRHVRQI8860-69-02 23:30:19 Test Item Value Reference Range Interpretation Comments eGFR (test code = eGFR) 65 [facility]iscoBqvkmhqHPCAJUEDP0821-58-68 23:30:19 Test Item Value Reference Range Interpretation Comments AGAP (test code = AGAP) 15.3 10.0-20.0 N [facility]iscoBacgtbwAKFIJRBGQ9918-94-40 23:30:19 Test Item Value Reference Range Interpretation Comments Sodium Lvl (test code = Sodium Lvl) 140 135-145 N [facility]iscoSfpysazWZCUDHTLG7405-29-16 23:30:19 Test Item Value Reference Range Interpretation Comments Creatinine Lvl (test code = Creatinine 0.9 0.5-1.4 N Lvl) [facility]iscoPsnkljcCKXWUWGWK5468-42-62 23:30:19 Test Item Value Reference Range Interpretation Comments Calcium Lvl (test code = Calcium Lvl) 8.4 8.5-10.5 L [facility]iscoVypcymdDWHAJZCGR6910-80-22 23:30:19 Test Item Value Reference Range Interpretation Comments CO2 (test code = CO2) 26 24-32 N [facility]iscoYouuqnzYTATYZUQT4572-32-69 23:30:19 Test Item Value Reference Range Interpretation Comments Potassium Lvl (test code = Potassium 4.3 3.5-5.1 N Lvl) [facility]iscoTqpgorfKZUAFUXSG0556-91-35 23:30:19 Test Item Value Reference Range Interpretation Comments Chloride Lvl (test code = Chloride Lvl) 103 95-109 N [facility]iscoUalyzjlKNZWVVLSM8372-08-57 23:30:19 Test Item Value Reference Range Interpretation Comments Glucose Lvl (test code = Glucose Lvl) 178 70-99 H [facility]iscoOyjudoiBCHUVSXAT8588-39-68 23:30:19 Test Item Value Reference Range Interpretation Comments BUN (test code = BUN) 18 7-22 N [facility]iscoCcokmexKOZTIKTRT1769-14-74 23:30:19 Test Item Value Reference Range Interpretation Comments eGFR (test code = eGFR) 65 [facility]iscoQtsooegDQVSPCBIE7078-76-74 23:30:19 Test Item Value Reference Range Interpretation Comments AGAP (test code = AGAP) 15.3 10.0-20.0 N [facility]iscoDlexmimWFIZGGRKA0506-39-09 23:30:19 Test Item Value Reference Range Interpretation Comments Sodium Lvl (test code = Sodium Lvl) 140 135-145 N [facility]iscoMmmeszyOQPEEOFFI6722-47-84 23:30:19 Test Item Value Reference Range Interpretation Comments Creatinine Lvl (test code = Creatinine 0.9 0.5-1.4 N Lvl) [facility]iscoPzcjekzZFEOJIVPT6168-82-92 23:30:19 Test Item Value Reference Range Interpretation Comments Calcium Lvl (test code = Calcium Lvl) 8.4 8.5-10.5 L [facility]iscoWtdpdxfYDZNFJMJF7195-76-38 23:30:19 Test Item Value Reference Range Interpretation Comments CO2 (test code = CO2) 26 24-32 N [facility]iscoZbhcqcdMXNDKHTII2649-68-57 23:30:19 Test Item Value Reference Range Interpretation Comments Potassium Lvl (test code = Potassium 4.3 3.5-5.1 N Lvl) [facility]iscoVwjcldbLQUFDSWDJ4444-21-34 23:30:19 Test Item Value Reference Range Interpretation Comments Chloride Lvl (test code = Chloride Lvl) 103 95-109 N [facility]iscoRjpgxrbUHIRJPRWE6954-10-36 23:30:19 Test Item Value Reference Range Interpretation Comments Glucose Lvl (test code = Glucose Lvl) 178 70-99 H [facility]iscoDxncqdsLFCWJFIMI0589-10-63 23:30:19 Test Item Value Reference Range Interpretation Comments BUN (test code = BUN) 18 7-22 N [facility]iscoSdgusvlMUOAJKRNB6734-06-26 23:30:19 Test Item Value Reference Range Interpretation Comments eGFR (test code = eGFR) 65 [facility]iscoVvkjjljJGISOQCTW3692-75-65 23:30:19 Test Item Value Reference Range Interpretation Comments AGAP (test code = AGAP) 15.3 10.0-20.0 N [facility]iscoYkxoqzzDNJMBUDES8653-56-58 23:30:19 Test Item Value Reference Range Interpretation Comments Sodium Lvl (test code = Sodium Lvl) 140 135-145 N [facility]iscoJyywwujTYYMYWXZQ9878-89-77 23:30:19 Test Item Value Reference Range Interpretation Comments Creatinine Lvl (test code = Creatinine 0.9 0.5-1.4 N Lvl) [facility]iscoTpzpjvhPFEPASYVF0621-08-66 23:30:19 Test Item Value Reference Range Interpretation Comments Calcium Lvl (test code = Calcium Lvl) 8.4 8.5-10.5 L [facility]iscoYtnzogrMHTULQMZP9009-56-43 23:30:19 Test Item Value Reference Range Interpretation Comments CO2 (test code = CO2) 26 24-32 N [facility]iscoTbueofqOSSYYJFQA4891-19-77 23:30:19 Test Item Value Reference Range Interpretation Comments Potassium Lvl (test code = Potassium 4.3 3.5-5.1 N Lvl) [facility]iscoTowhciaPOAUGDXFE6026-24-01 23:30:19 Test Item Value Reference Range Interpretation Comments Chloride Lvl (test code = Chloride Lvl) 103 95-109 N [facility]iscoDwkcgffMZVSIMXQX7129-29-79 23:30:19 Test Item Value Reference Range Interpretation Comments Glucose Lvl (test code = Glucose Lvl) 178 70-99 H [facility]iscoKniqkymDXWDZZJGA7999-89-11 23:30:19 Test Item Value Reference Range Interpretation Comments BUN (test code = BUN) 18 7-22 N [facility]iscoQoceckuPLMREXCHK3637-02-54 23:30:19 Test Item Value Reference Range Interpretation Comments eGFR (test code = eGFR) 65 [facility]iscoXdhfxkqSYXPIJAIL8728-09-49 23:30:19 Test Item Value Reference Range Interpretation Comments AGAP (test code = AGAP) 15.3 10.0-20.0 N [facility]iscoSziksbwQXNDXMZBV2991-49-21 23:30:19 Test Item Value Reference Range Interpretation Comments Sodium Lvl (test code = Sodium Lvl) 140 135-145 N [facility]iscoIrcayshIWUJQLZGD9970-38-76 23:30:19 Test Item Value Reference Range Interpretation Comments Creatinine Lvl (test code = Creatinine 0.9 0.5-1.4 N Lvl) [facility]iscoYdytntsSNLHEUYJU2306-47-31 23:30:19 Test Item Value Reference Range Interpretation Comments Calcium Lvl (test code = Calcium Lvl) 8.4 8.5-10.5 L [facility]iscoUzqmxatWZNZNMSAR9764-29-51 23:30:19 Test Item Value Reference Range Interpretation Comments CO2 (test code = CO2) 26 24-32 N [facility]iscoYdmyvobYFHOLUYVA4671-54-65 23:30:19 Test Item Value Reference Range Interpretation Comments Potassium Lvl (test code = Potassium 4.3 3.5-5.1 N Lvl) [facility]iscoOlyldxqTYYRDQGWS8834-75-75 23:30:19 Test Item Value Reference Range Interpretation Comments Chloride Lvl (test code = Chloride Lvl) 103 95-109 N [facility]iscoSpwxkhuNTODWOPRN1147-77-67 23:30:19 Test Item Value Reference Range Interpretation Comments Glucose Lvl (test code = Glucose Lvl) 178 70-99 H [facility]iscoOrgiodkJIZKUTOAO6400-08-63 23:30:19 Test Item Value Reference Range Interpretation Comments BUN (test code = BUN) 18 7-22 N [facility]iscoSqupyvmTXTLFOTZC5666-33-50 23:30:19 Test Item Value Reference Range Interpretation Comments eGFR (test code = eGFR) 65 [facility]iscoKnlolvsRIMZDAWJO0644-38-49 23:30:19 Test Item Value Reference Range Interpretation Comments AGAP (test code = AGAP) 15.3 10.0-20.0 N [facility]iscoTuxsjvvXFCBVUAWN1073-80-98 23:30:19 Test Item Value Reference Range Interpretation Comments Sodium Lvl (test code = Sodium Lvl) 140 135-145 N [facility]iscoRmgdhhlHJGKBEJCS9436-94-98 23:30:19 Test Item Value Reference Range Interpretation Comments Creatinine Lvl (test code = Creatinine 0.9 0.5-1.4 N Lvl) [facility]iscoCvxorlvETXYHFNKD2554-60-69 23:30:19 Test Item Value Reference Range Interpretation Comments Calcium Lvl (test code = Calcium Lvl) 8.4 8.5-10.5 L [facility]iscoSguqcxoVHXIHHPYE9414-93-48 23:30:19 Test Item Value Reference Range Interpretation Comments CO2 (test code = CO2) 26 24-32 N [facility]iscoZqgivtkHACWMCGLB3114-55-33 23:30:19 Test Item Value Reference Range Interpretation Comments Potassium Lvl (test code = Potassium 4.3 3.5-5.1 N Lvl) [facility]iscoLbzkghlVGBLVVXMS2018-01-95 23:30:19 Test Item Value Reference Range Interpretation Comments Chloride Lvl (test code = Chloride Lvl) 103 95-109 N [facility]iscoWcurnegBLADLQCRX5899-84-95 23:30:19 Test Item Value Reference Range Interpretation Comments Glucose Lvl (test code = Glucose Lvl) 178 70-99 H [facility]iscoBoiykfkNDRISKOEN4319-67-88 23:30:19 Test Item Value Reference Range Interpretation Comments BUN (test code = BUN) 18 7-22 N [facility]iscoBrayqygPJZPCCKSM0720-52-13 23:30:19 Test Item Value Reference Range Interpretation Comments eGFR (test code = eGFR) 65 [facility]iscoBynrxppLVQOWKDFY3251-91-08 23:30:19 Test Item Value Reference Range Interpretation Comments AGAP (test code = AGAP) 15.3 10.0-20.0 N [facility]iscoJqxwzziIWWLVZLJB3898-48-52 23:30:19 Test Item Value Reference Range Interpretation Comments Sodium Lvl (test code = Sodium Lvl) 140 135-145 N [facility]iscoAbcvypoEMYPFTFGU4275-05-31 23:30:19 Test Item Value Reference Range Interpretation Comments Creatinine Lvl (test code = Creatinine 0.9 0.5-1.4 N Lvl) [facility]iscoUmqfgdsINFGCOTKP8679-60-09 23:30:19 Test Item Value Reference Range Interpretation Comments Calcium Lvl (test code = Calcium Lvl) 8.4 8.5-10.5 L [facility]iscoRkyghbaASCNYERAS1978-25-67 23:30:19 Test Item Value Reference Range Interpretation Comments CO2 (test code = CO2) 26 24-32 N [facility]iscoUfqvapsHTWGGSSUD2073-74-68 23:30:19 Test Item Value Reference Range Interpretation Comments Potassium Lvl (test code = Potassium 4.3 3.5-5.1 N Lvl) [facility]iscoUyjixzpMJFFOVDUU9264-53-95 23:30:19 Test Item Value Reference Range Interpretation Comments Chloride Lvl (test code = Chloride Lvl) 103 95-109 N [facility]iscoHcptjrnEWLGKMOFG9420-17-07 23:30:19 Test Item Value Reference Range Interpretation Comments Glucose Lvl (test code = Glucose Lvl) 178 70-99 H [facility]iscoHoqnzhwLCQSUSAWT8732-61-58 23:30:19 Test Item Value Reference Range Interpretation Comments BUN (test code = BUN) 18 7-22 N [facility]iscoJodiwidXBFWAGANU5867-94-25 23:30:19 Test Item Value Reference Range Interpretation Comments eGFR (test code = eGFR) 65 [facility]iscoOajiptmNGQJNMAYH6831-59-08 23:30:19 Test Item Value Reference Range Interpretation Comments AGAP (test code = AGAP) 15.3 10.0-20.0 N [facility]iscoQobugjyTEENBWDLI9394-91-25 23:30:19 Test Item Value Reference Range Interpretation Comments Sodium Lvl (test code = Sodium Lvl) 140 135-145 N [facility]iscoCacjkwaJFHNTRHYQ0644-78-51 23:30:19 Test Item Value Reference Range Interpretation Comments Creatinine Lvl (test code = Creatinine 0.9 0.5-1.4 N Lvl) [facility]iscoStduuloSBZBMLELJ9789-04-84 23:30:19 Test Item Value Reference Range Interpretation Comments Calcium Lvl (test code = Calcium Lvl) 8.4 8.5-10.5 L [facility]iscoKivuiliTJKMKWJEX3339-12-61 23:30:19 Test Item Value Reference Range Interpretation Comments CO2 (test code = CO2) 26 24-32 N [facility]iscoMahowebZWGLGHJTA4708-45-08 23:30:19 Test Item Value Reference Range Interpretation Comments Potassium Lvl (test code = Potassium 4.3 3.5-5.1 N Lvl) [facility]iscoNohmmyyEMOXBDIIU4621-94-80 23:30:19 Test Item Value Reference Range Interpretation Comments Chloride Lvl (test code = Chloride Lvl) 103 95-109 N [facility]iscoLtiybqsYFWZUKKTU6073-94-71 23:30:19 Test Item Value Reference Range Interpretation Comments Glucose Lvl (test code = Glucose Lvl) 178 70-99 H [facility]iscoRxzrvubHVLYEZEYO8211-03-22 23:30:19 Test Item Value Reference Range Interpretation Comments BUN (test code = BUN) 18 7-22 N [facility]iscoSqggryxDJZRXFXIR9547-21-67 23:30:19 Test Item Value Reference Range Interpretation Comments eGFR (test code = eGFR) 65 [facility]iscoTeclabmKNGLTCEWD1894-18-71 23:30:19 Test Item Value Reference Range Interpretation Comments AGAP (test code = AGAP) 15.3 10.0-20.0 N [facility]iscoKmqtpanBSIVARHYL4645-99-59 23:30:19 Test Item Value Reference Range Interpretation Comments Sodium Lvl (test code = Sodium Lvl) 140 135-145 N [facility]iscoHllvwbpDPAAOGGMS6908-06-22 23:30:19 Test Item Value Reference Range Interpretation Comments Creatinine Lvl (test code = Creatinine 0.9 0.5-1.4 N Lvl) [facility]iscoPavokzpUWJXEYIJA0363-55-47 23:30:19 Test Item Value Reference Range Interpretation Comments Calcium Lvl (test code = Calcium Lvl) 8.4 8.5-10.5 L [facility]iscoPhmiqmfAICSZZURO8735-60-53 23:30:19 Test Item Value Reference Range Interpretation Comments CO2 (test code = CO2) 26 24-32 N [facility]iscoVlkobpkJJLNFMXBO2655-96-75 23:30:19 Test Item Value Reference Range Interpretation Comments Potassium Lvl (test code = Potassium 4.3 3.5-5.1 N Lvl) [facility]iscoGigwyzwQLFMUHHTE1649-06-31 23:30:19 Test Item Value Reference Range Interpretation Comments Chloride Lvl (test code = Chloride Lvl) 103 95-109 N [facility]iscoGdsjzxzUFEWIUXUE0319-92-59 23:30:19 Test Item Value Reference Range Interpretation Comments Glucose Lvl (test code = Glucose Lvl) 178 70-99 H [facility]iscoHmkocdjDWPOXCAQI2523-80-06 23:30:19 Test Item Value Reference Range Interpretation Comments BUN (test code = BUN) 18 7-22 N [facility]iscoDnjdroxUTXVIUTAD9858-39-34 23:30:19 Test Item Value Reference Range Interpretation Comments eGFR (test code = eGFR) 65 [facility]iscoTemmcuyEOKVYUKBU1802-85-50 23:30:19 Test Item Value Reference Range Interpretation Comments AGAP (test code = AGAP) 15.3 10.0-20.0 N [facility]iscoZmtorblMIZNNSXYH1982-51-99 23:30:19 Test Item Value Reference Range Interpretation Comments Sodium Lvl (test code = Sodium Lvl) 140 135-145 N [facility]iscoBepcfdgAAMQQLJFG5734-96-76 23:30:19 Test Item Value Reference Range Interpretation Comments Creatinine Lvl (test code = Creatinine 0.9 0.5-1.4 N Lvl) [facility]iscoPmntquiVAZEPEUQN2096-07-36 23:30:19 Test Item Value Reference Range Interpretation Comments Calcium Lvl (test code = Calcium Lvl) 8.4 8.5-10.5 L [facility]iscoUpqinrtPXSBBBYYD7743-42-38 23:30:19 Test Item Value Reference Range Interpretation Comments CO2 (test code = CO2) 26 24-32 N [facility] [id number] 23:30:19 Test Item Value Reference Range Interpretation Comments Potassium Lvl (test code = Potassium 4.3 3.5-5.1 N Lvl) [id number] 23:30:19 Test Item Value Reference Range Interpretation Comments Chloride Lvl (test code = Chloride Lvl) 103 95-109 N [id number] 23:30:19 Test Item Value Reference Range Interpretation Comments Glucose Lvl (test code = Glucose Lvl) 178 70-99 H [id number] 23:30:19 Test Item Value Reference Range Interpretation Comments BUN (test code = BUN) 18 7-22 N [facility] GLUCOSE [id number] 21:09:00 Test Item Value Reference Range Interpretation Comments Gluc POC Comment 1 (test code = Verify w/Lab Gluc POC Comment 1) [facility] GLUCOSE [id number] 21:09:00 Test Item Value Reference Range Interpretation Comments Gluc POC (test code = Gluc POC) 194 70-99 H [facility] GLUCOSE [id number] 21:09:00 Test Item Value Reference Range Interpretation Comments Gluc POC Comment 1 (test code = Verify w/Lab Gluc POC Comment 1) [facility] GLUCOSE [id number] 21:09:00 Test Item Value Reference Range Interpretation Comments Gluc POC (test code = Gluc POC) 194 70-99 H [facility] GLUCOSE [id number] 21:09:00 Test Item Value Reference Range Interpretation Comments Gluc POC Comment 1 (test code = Verify w/Lab Gluc POC Comment 1) [facility] GLUCOSE [id number] 21:09:00 Test Item Value Reference Range Interpretation Comments Gluc POC (test code = Gluc POC) 194 70-99 H [facility] GLUCOSE [id number] 21:09:00 Test Item Value Reference Range Interpretation Comments Gluc POC Comment 1 (test code = Verify w/Lab Gluc POC Comment 1) [facility] GLUCOSE [id number] 21:09:00 Test Item Value Reference Range Interpretation Comments Gluc POC (test code = Gluc POC) 194 70-99 H [facility] GLUCOSE [id number] 21:09:00 Test Item Value Reference Range Interpretation Comments Gluc POC Comment 1 (test code = Verify w/Lab Gluc POC Comment 1) [facility] GLUCOSE [id number] 21:09:00 Test Item Value Reference Range Interpretation Comments Gluc POC (test code = Gluc POC) 194 70-99 H [facility] GLUCOSE [id number] 21:09:00 Test Item Value Reference Range Interpretation Comments Gluc POC Comment 1 (test code = Verify w/Lab Gluc POC Comment 1) [facility] GLUCOSE [id number] 21:09:00 Test Item Value Reference Range Interpretation Comments Gluc POC (test code = Gluc POC) 194 70-99 H [facility] GLUCOSE [id number] 21:09:00 Test Item Value Reference Range Interpretation Comments Gluc POC Comment 1 (test code = Verify w/Lab Gluc POC Comment 1) [facility] GLUCOSE [id number] 21:09:00 Test Item Value Reference Range Interpretation Comments Gluc POC (test code = Gluc POC) 194 70-99 H [facility] GLUCOSE [id number] 21:09:00 Test Item Value Reference Range Interpretation Comments Gluc POC Comment 1 (test code = Verify w/Lab Gluc POC Comment 1) [facility] GLUCOSE [id number] 21:09:00 Test Item Value Reference Range Interpretation Comments Gluc POC (test code = Gluc POC) 194 70-99 H [facility] GLUCOSE [id number] 21:09:00 Test Item Value Reference Range Interpretation Comments Gluc POC Comment 1 (test code = Verify w/Lab Gluc POC Comment 1) [facility] GLUCOSE [id number] 21:09:00 Test Item Value Reference Range Interpretation Comments Gluc POC (test code = Gluc POC) 194 70-99 H [facility] GLUCOSE [id number] 21:09:00 Test Item Value Reference Range Interpretation Comments Gluc POC Comment 1 (test code = Verify w/Lab Gluc POC Comment 1) [facility] GLUCOSE [id number] 21:09:00 Test Item Value Reference Range Interpretation Comments Gluc POC (test code = Gluc POC) 194 70-99 H [facility] GLUCOSE [id number] 21:09:00 Test Item Value Reference Range Interpretation Comments Gluc POC Comment 1 (test code = Verify w/Lab Gluc POC Comment 1) [facility] GLUCOSE [id number] 21:09:00 Test Item Value Reference Range Interpretation Comments Gluc POC (test code = Gluc POC) 194 70-99 H [facility] GLUCOSE [id number] 21:09:00 Test Item Value Reference Range Interpretation Comments Gluc POC Comment 1 (test code = Verify w/Lab Gluc POC Comment 1) [facility] GLUCOSE [id number] 21:09:00 Test Item Value Reference Range Interpretation Comments Gluc POC (test code = Gluc POC) 194 70-99 H [facility] Notes Date/Time Note Provider Source 2013-07-21 09:00:00-00:00 Cervical spine one view: [facility] This radiograph was obtained during surgery for localization purposes. FINDINGS: This image reveals for needles been placement anterior approach and positioned with their tips overlying the disc spaces at the levels of C2-C3, C3- C4, C4-C5 and C5-C6. SL: 14 2013-07-21 09:00:00-00:00 Cervical spine one view: [facility] This radiograph was obtained during surgery for localization purposes. FINDINGS: This image reveals for needles been placement anterior approach and positioned with their tips overlying the disc spaces at the levels of C2-C3, C3- C4, C4-C5 and C5-C6. SL: 14 2013-07-21 09:00:00-00:00 Cervical spine one view: [facility] This radiograph was obtained during surgery for localization purposes. FINDINGS: This image reveals for needles been placement anterior approach and positioned with their tips overlying the disc spaces at the levels of C2-C3, C3- C4, C4-C5 and C5-C6. SL: 14 2013-07-21 09:00:00-00:00 Cervical spine one view: [facility] This radiograph was obtained during surgery for localization purposes. FINDINGS: This image reveals for needles been placement anterior approach and positioned with their tips overlying the disc spaces at the levels of C2-C3, C3- C4, C4-C5 and C5-C6. SL: 14
[2023-06-03] MEDS ORDERED: DIAZEPAM 5 MG TABLET ONE (15:12)
--- NOTE | 2023-06-03 15:13 | RAD REPORT ---
EXAM DESCRIPTION: CT - Head Brain Wo Cont - 06/03/2023 2:54 pm CLINICAL HISTORY: Headache COMPARISON: February 2023 TECHNIQUE: Computed axial tomography of the head was obtained. IV contrast was not requested. All CT scans are performed using dose optimization technique as appropriate and may include automated exposure control or mA/KV adjustment according to patient size. FINDINGS: An intracranial bleed is not seen The ventricles are normal in caliber No extra-axial fluid collection is noted. 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 IMPRESSION: No acute intracranial abnormality is seen If patient's symptoms persist MRI of the brain would be recommended
[2023-06-03 15:39] LABS: Absolute Lymphocytes (CBC) 1.4 K/uL (0.7-4.9); Hematocrit 35.7 % (36.0-45.0); Lymphocytes % 23.5 % (15.3-44.8); MCV 76.8 fL (80-100); MPV 8.5 fL (7.6-11.3); Platelets 217 thou/uL (152-406); RBC Red Blood Cell Count 4.66 M/uL (3.86-4.86)
[2023-06-03 15:54] LABS: Potassium 3.6 mEq/L (3.5-5.1)
--- NOTE | 2023-06-03 16:16 | EDPHYS ---
Physician Documentation [facility] Name: Sharon Delgadillo Age: 78 yrs Sex: Female : 1945 Arrival Date: 06/03/2023 Time: 14:22 Bed 17 Private MD: ED Physician Silver Davenoprt HPI: 06/03 16:16 This 78 yrs old Female presents to ER via Wheelchair with complaints of Leg Pain. ms3 16:16 78-year-old female with past medical history of COPD, diabetes, hypertension, presents ms3 for right leg spasm that created pain that went to her right side of her head. Patient states she recently started Xarelto as she has a DVT in her right leg. Patient denies chest pain, shortness of breath.. Historical: - Allergies: 14:38 Morphine; cm10 - PMHx: 14:38 COPD; Diabetes - NIDDM; Hypertension; Hypothyroidism; cm10 - PSHx: 14:38 Appendectomy; bunionectomy; Cholecystectomy; hysterectomy; Knee replacement, right; cm10 Left rotator cuff repair; - Immunization history:: Adult Immunizations up to date. - Social history:: Smoking status: Patient denies any tobacco usage or history of. ROS: 16:16 Constitutional: Negative for fever, and chills. Neck: Negative for injury, pain, and ms3 swelling, Cardiovascular: Negative for chest pain, and palpitations. Respiratory: Negative for shortness of breath, cough, wheezing, and pleuritic chest pain, Abdomen/GI: Negative for abdominal pain, nausea, vomiting, diarrhea, and constipation. 16:16 Neuro: Positive for headache. 16:16 All other systems are negative. Exam: 16:16 Constitutional: This is a well developed, well nourished patient who is awake, alert, ms3 and in no acute distress. Head/Face: Normocephalic, atraumatic. Neck: Trachea midline, no cervical lymphadenopathy. Supple, full range of motion without nuchal rigidity, or vertebral point tenderness. No Meningismus. Chest/axilla: Normal chest wall appearance and motion. Nontender with no deformity. Cardiovascular: Regular rate and rhythm with a normal S1 and S2. No gallops, murmurs, or rubs. Normal PMI, no JVD. No pulse deficits. Respiratory: Lungs have equal breath sounds bilaterally, clear to auscultation and percussion. No rales, rhonchi or wheezes noted. No increased work of breathing, no retractions or nasal flaring. Back: No spinal tenderness. No costovertebral tenderness. Full range of motion. Skin: Warm, dry with normal turgor. Normal color with no rashes, no lesions, and no evidence of cellulitis. MS/ Extremity: Pulses equal, no cyanosis. Neurovascular intact. Full, normal range of motion. 16:16 Neuro: Orientation: is normal, to person, place, time \T\ situation. Mentation: is normal, Memory: is normal, Cranial nerves: CN I not tested, CN II- XII are normal as tested, Cerebellar function: normal finger to nose testing, Motor: is normal, Sensation: is normal, no obvious gross deficits. Vital Signs: 14:37 BP 106 / 54; Pulse 87; Resp 16 S; Temp 98.3; Pulse Ox 98% on R/A; cm10 14:39 Weight 83.01 kg; Height 5 ft. 8 in. ; Pain 7/10; cm10 15:26 BP 128 / 49; Pulse 79; Resp 18; Pulse Ox 99% on R/A; Pain 6/10; me1 16:41 BP 118 / 54; Pulse 71; Resp 18; Temp 98; Pulse Ox 99% on R/A; ph 14:39 Body Mass Index 27.82 (83.01 kg, 172.72 cm) cm10 14:39 Pain Scale: Adult cm10 15:26 Pain Scale: Adult me1 MDM: 14:44 Patient medically screened. ms3 16:16 Differential diagnosis: ICH vs Spasm vs MULLER. Data reviewed: vital signs, nurses notes, ms3 lab test result(s), radiologic studies, and as a result, I will discharge patient. I considered the following discharge prescriptions or medication management in the emergency department Medications were administered in the Emergency Department. See MAR. Historians other than the Patient: Friend: . Counseling: I had a detailed discussion with the patient and/or guardian regarding: the historical points, exam findings, and any diagnostic results supporting the discharge/admit diagnosis, lab results, radiology results, the need for outpatient follow up, to return to the emergency department if symptoms worsen or persist or if there are any questions or concerns that arise at home. Special discussion: I discussed with the patient/guardian in detail that at this point there is no indication for admission to the hospital. It is understood, however, that if the symptoms persist or worsen the patient needs to return immediately for re-evaluation. ED course: On reevaluation patient's symptoms improved, patient is alert and oriented x 4, no apparent distress, nontoxic-appearing, speaking full sentences. Patient to follow-up with her primary care physician in 2 to 3 days. Patient understands and agrees with plan. All questions were answered. Return precautions discussed include worsening symptoms, or any other concerns.. 06/03 14:41 Order name: CBC with Diff; Complete Time: 15:56 ms3 06/03 14:41 Order name: BMP; Complete Time: 15:56 ms3 06/03 14:41 Order name: CT Head Brain wo Cont; Complete Time: 15:34 ms3 Administered Medications: 15:15 Drug: Diazepam PO 5 mg Route: PO; me1 Disposition Summary: 06/03/23 16:16 Discharge Ordered Location: Home ms3 Condition: Stable ms3 Diagnosis - Muscle spasm of calf ms3 - Headache ms3 Followup: ms3 - With: Private Physician - When: 2 - 3 days - Reason: Recheck today's complaints Discharge Instructions: - Discharge Summary Sheet ms3 - General Headache Without Cause ms3 - Leg Cramps ms3 Forms: - Medication Reconciliation Form ms3 - Thank You Letter ms3 - Antibiotic Education ms3 - Prescription Opioid Use ms3 - Patient Portal Instructions ms3 Signatures: Dispatcher [employer] Silver Bowles DO DO ms3 Lexus Stanley RN RN cm10 Rekha Gonzalez RN RN me1
--- NOTE | 2023-06-03 16:16 | ER ---
Nurse's Notes [facility] Name: Sharon Delgadillo Age: 78 yrs Sex: Female : 1945 Arrival Date: 06/03/2023 Time: 14:22 Bed 17 Private MD: Diagnosis: Muscle spasm of calf;Headache Presentation: 06/03 14:37 Chief complaint: Patient states: right leg pain and right sided headache. Pt states cm10 that she was diagnosed with DVT to right leg 2 weeks ago. Pt states that today she started having spasms to right leg. Pt on Xarelto. Coronavirus screen: Client denies travel out of the [place] in the last 14 days. Ebola Screen: Patient denies travel to an Ebola-affected area in the 21 days before illness onset. No symptoms or risks identified at this time. Initial Sepsis Screen: Does the patient meet any 2 criteria? No. Patient's initial sepsis screen is negative. Does the patient have a suspected source of infection? No. Patient's initial sepsis screen is negative. Risk Assessment: Do you want to hurt yourself or someone else? Patient reports no desire to harm self or others. Onset of symptoms was June 03, 2023. 14:37 Method Of Arrival: Wheelchair cm10 14:37 Acuity: NELIDA 3 cm10 Historical: - Allergies: 14:38 Morphine; cm10 - PMHx: 14:38 COPD; Diabetes - NIDDM; Hypertension; Hypothyroidism; cm10 - PSHx: 14:38 Appendectomy; bunionectomy; Cholecystectomy; hysterectomy; Knee replacement, right; cm10 Left rotator cuff repair; - Immunization history:: Adult Immunizations up to date. - Social history:: Smoking status: Patient denies any tobacco usage or history of. Screenin:26 [facility] ED Fall Risk Assessment (Adult) Score/Fall Risk Level 3 or more points = High me1 Risk Oriented to surroundings, Maintained a safe environment, Educated pt \T\ family on fall prevention, incl call for assistance when getting out of bed, Provided non-skid footwear, Hourly rounding (assess needs \T\ fall precautionary measures) done, Used ambulatory aids as needed (educated on \T\ assisted with). Abuse screen: Denies threats or abuse. Nutritional screening: No deficits noted. Tuberculosis screening: No symptoms or risk factors identified. Assessment: 15:26 General: Appears uncomfortable, well groomed, well developed, well nourished, Behavior me1 is cooperative, appropriate for age, anxious, Reports Spasms to righr leg, c/o headache to right side of head. dx 2 weeks ago with DVT to right leg- on Xarelto. Pain: Complains of pain in right face and right leg Pain does not radiate. Pain currently is 6 out of 10 on a pain scale. Quality of pain is described as aching. Neuro: Level of Consciousness is awake, alert, obeys commands, Oriented to person, place, time, situation, Appropriate for age. Cardiovascular: Capillary refill < 3 seconds Patient's skin is warm and dry. Respiratory: Respiratory effort is even, unlabored, Respiratory pattern is regular, symmetrical. Musculoskeletal: Swelling present in right leg Reports spasms in right leg. Vital Signs: 14:37 BP 106 / 54; Pulse 87; Resp 16 S; Temp 98.3; Pulse Ox 98% on R/A; cm10 14:39 Weight 83.01 kg; Height 5 ft. 8 in. ; Pain 7/10; cm10 15:26 BP 128 / 49; Pulse 79; Resp 18; Pulse Ox 99% on R/A; Pain 6/10; me1 16:41 BP 118 / 54; Pulse 71; Resp 18; Temp 98; Pulse Ox 99% on R/A; ph 14:39 Body Mass Index 27.82 (83.01 kg, 172.72 cm) cm10 14:39 Pain Scale: Adult cm10 15:26 Pain Scale: Adult me1 ED Course: 14:23 Patient arrived in ED. rg4 14:30 Silver Davenport DO is Attending Physician. ms3 14:38 Triage completed. cm10 14:39 Arm band placed on Patient placed in an exam room, on a stretcher. cm10 14:55 CT Head Brain wo Cont In Process Unspecified. EDMS 14:57 Rekha Gonzalez, SPIKE is Primary Nurse. me1 15:25 Missed attempt(s): 22 gauge in right forearm. Bleeding controlled, band aid applied, me1 catheter tip intact. 15:26 Patient has correct armband on for positive identification. Bed in low position. Call me1 light in reach. Side rails up X 1. Provided Education on: POC, verbalized understanding. . 15:26 No provider procedures requiring assistance completed. Inserted saline lock: 22 gauge me1 in left forearm, using aseptic technique. 15:36 BMP Sent. me1 15:36 CBC with Diff Sent. me1 16:40 IV discontinued, intact, bleeding controlled, No redness/swelling at site. Pressure ph dressing applied. Administered Medications: 15:15 Drug: Diazepam PO 5 mg Route: PO; me1 Medication: 15:26 VIS not applicable for this client. me1 Outcome: 16:16 Discharge ordered by MD. ms3 16:40 Discharged to home ambulatory, via wheelchair, with friend. ph 16:40 Condition: good 16:40 Discharge instructions given to patient, Instructed on discharge instructions, follow up and referral plans. Demonstrated understanding of instructions, follow-up care. 16:41 Patient left the ED. ph Signatures: Dispatcher [employer] EDFL Adali Castro RN RN ph Dorian, Jenny rg4 Silver Davenport, DO ms3 Lexus Stanley RN RN 10 Rekha Gonzalez RN RN me1 Corrections: (The following items were deleted from the chart) 14:40 14:39 Pain 7/10, Adult; cm10 cm10
[2023-06-03 16:51] VITALS: O2SAT 99
[2023-06-03 16:53] VITALS: BP 118/54; TEMP 98
== END 2023-06-03 16:41 | disposition home or self-care (01) ==
LOC: ER 14:22
DX: M62.831 Muscle spasm of calf (principal); R51.9 Headache, unspecified; J44.9 Chronic obstructive pulmonary disease, unspecified; I10 Essential (primary) hypertension; Z79.01 Long term (current) use of anticoagulants; Z88.5 Allergy status to narcotic agent
CPT/HCPCS: 36415; 70450; 80048; 85025; 99284

== ENCOUNTER 2024-08-05 10:43 | Emergency (ER) | payer MEDICARE, OTHER ==
[2024-08-05 11:22] LABS: Absolute Basophils 0.1 K/uL (0-0.5); Absolute Eosinophils 0.1 K/uL (0-0.5); Absolute Lymphocytes (CBC) 1.5 K/uL (0.7-4.9); Absolute Monocytes 0.5 K/uL (0.1-1.3); Absolute Neutrophil 6.4 K/uL (1.8-8.0); Basophils % 0.9 % (0-1.3); Eosinophils % 1.6 % (0-4.4); Hematocrit 40.6 % (36.0-45.0); Hemoglobin 12.9 g/dL (12.0-15.0); MCHC 31.7 g/dL (32.0-36.0); MCV 75.8 fL (80-100); MPV 8.9 fL (7.6-11.3); Monocytes % 5.6 % (3.3-12.3); Neutrophils % 74.9 % (41.7-73.7); Platelets 196 thou/uL (152-406); RBC Red Blood Cell Count 5.36 M/uL (3.86-4.86); Red Cell Distribution Width 17.5 % (12.1-15.2)
[2024-08-05 11:25] LABS: PT Prothrombin Time 10.9 SECONDS (9.4-12.5); Protime INR 0.97
[2024-08-05 11:45] LABS: Anion Gap 11.1 mEq/L (5.0-15.0); Troponin High Sensitivity 6.7 pg/mL (<58.9)
[2024-08-05 11:46] LABS: Potassium 4.1 mEq/L (3.5-5.1)
--- NOTE | 2024-08-05 12:06 | RAD REPORT ---
EXAMINATION: ONE VIEW CHEST XR CLINICAL INDICATION: DYSPNEA TECHNIQUE: Frontal chest projection is submitted. Examination is limited by patient positioning and t echnique. COMPARISON: 03/23/2023, 03/13/2023 FINDINGS: Interstitial markings appear mildly prominent and stable since prior imaging. The heart is normal in size. No displaced fractures identified. Cervical hardware plate. IMPRESSION: No acute intrathoracic abnormalities.
--- NOTE | 2024-08-05 13:18 | EDPHYS ---
Physician Documentation [facility] Name: Sharon Delgadillo Age: 79 yrs Sex: Female : 1945 Arrival Date: 08/05/2024 Time: 10:43 Bed 13 Private MD: ED Physician Brennan Ferreira HPI: 08/05 12:02 This 79 yrs old Female presents to ER via Wheelchair with complaints of Chest ec2 Pain, Breathing Difficulty. 12:02 Patient arrives today for evaluation of chest pain and shortness of breath ongoing for ec2 1 week. No specific alleviating or exacerbating factors. Denies any cough or cold symptoms. Patient reports no fevers or chills, no nausea or vomiting.. Historical: - Allergies: 11:00 Morphine; mb9 - PMHx: 11:00 COPD; Diabetes - NIDDM; Hypothyroidism; Hypertension; mb9 - PSHx: 11:00 Knee replacement; Knee replacement; hysterectomy; Appendectomy; bunionectomy; mb9 Cholecystectomy; Knee replacement; Left rotator cuff repair; - Immunization history:: Adult Immunizations up to date. - Infectious Disease History:: Denies. - Social history:: Smoking status: Patient/guardian denies using tobacco. ROS: 12:02 Constitutional: as per hpi ec2 Exam: 12:02 Constitutional: GEN: NAD Head: atraumatic Eyes: EOMI Ears: External ears are ec2 normal. CV: regular rate LUNGS: no respiratory distress ABD: non-distended SKIN: no evidence of rashes MSK: no evidence of trauma Vital Signs: 10:48 BP 156 / 67; Pulse 76; Resp 16; Temp 98; Pulse Ox 100% on R/A; Weight 90.26 kg; Height mb9 5 ft. 8 in. ; Pain 0/10; 12:27 BP 155 / 63; Pulse 90; Resp 18; Pulse Ox 95% on R/A; mb9 10:48 Body Mass Index 30.26 (90.26 kg, 172.72 cm) mb9 10:48 Pain Scale: Adult mb9 MDM: 10:54 Patient medically screened. ec2 10:58 Data reviewed: vital signs. ED course: EKG independently reviewed and interpreted by ec2 ak, shows normal sinus rhythm, rate of 81, no acute ST segment elevations, intervals are nonactionable, right bundle branch block noted. . 12:02 ED course: Patient arrives today for chest pain and shortness of breath. Examination ec2 remarkable for well-appearing nontoxic dividual's otherwise in no acute distress. EKG as above, will obtain lab work as well as chest x-ray. Differential includes ACS, electrolyte disturbances, anemia, pneumonia, viral infection. 12:03 ED course: Metabolic profile reassuring, CBC is reassuring. Troponin within normal ec2 ranges.. 13:17 ED course: On reassessment patient is well-appearing in no acute distress. Will ec2 discharge home. Return precautions given. Possible gastritis, possible esophagitis, patient also with difficulty swallowing, will have patient follow-up with GI. Return precautions given.. 10 10:55 Order name: Basic Metabolic Panel; Complete Time: 12:02 ec2 08/05 10:55 Order name: CBC with Diff; Complete Time: 12:02 ec2 08/05 10:55 Order name: NT PRO-BNP; Complete Time: 12:02 ec2 08/05 10:55 Order name: PT-INR; Complete Time: 12:02 ec2 08/05 10:55 Order name: Troponin HS; Complete Time: 12:02 ec2 08/05 10:55 Order name: XRAY Chest (1 view); Complete Time: 12:09 ec2 08/05 10:55 Order name: EKG; Complete Time: 10:55 ec2 08/05 10:55 Order name: Cardiac monitoring; Complete Time: 10:58 ec2 08/05 10:55 Order name: EKG - Nurse/Tech; Complete Time: 10:58 ec2 08/05 10:55 Order name: IV Saline Lock; Complete Time: 11:14 ec2 08/05 10:55 Order name: Labs collected and sent; Complete Time: 11:14 ec2 08/05 10:55 Order name: O2 Per Protocol; Complete Time: 10:58 ec2 08/05 10:55 Order name: O2 Sat Monitoring; Complete Time: 10:58 ec2 Administered Medications: No medications were administered Disposition Summary: 08/05/24 13:18 Discharge Ordered Notes: Location: Home ec2 Condition: Stable ec2 Diagnosis - Chest pain, unspecified ec2 Followup: ec2 - With: Private Physician - When: - Reason: Re-evaluation by your physician Followup: ec2 - With: Cristofer Lopez MD - When: - Reason: Recheck today's complaints Discharge Instructions: - Discharge Summary Sheet ec2 - Gastritis, Adult, [id number] ec2 - Nonspecific Chest Pain, Adult, [id number] ec2 Forms: - Medication Reconciliation Form ec2 - Antibiotic Education ec2 - Prescription Opioid Use ec2 - Patient Portal Instructions ec2 - Leadership Thank You Letter ec2 Prescriptions: - Pepcid 20 mg Oral Tablet - take 1 tablet ORAL route once daily; 20 tablet; Refills: 0, Product Selection ec2 Permitted Signatures: Dispatcher [employer] Mague Anderson RN RN mb9 Brennan Ferreira MD MD ec2
--- NOTE | 2024-08-05 13:18 | ER ---
Nurse's Notes [facility] Name: Sharon Delgadillo Age: 79 yrs Sex: Female : 1945 Arrival Date: 08/05/2024 Time: 10:43 Bed 13 Private MD: Diagnosis: Chest pain, unspecified Presentation: 08/05 10:48 Chief complaint: Patient states: I've had difficulty breathing and chest pain for 1 mb9 week now. My PA, Lloyd, sent me here. I started steroids last week for trouble swallowing.". 10:48 Coronavirus screen: Vaccine status: Patient reports receiving the 2nd dose of the covid mb9 vaccine. Ebola Screen: No symptoms or risks identified at this time. Initial Sepsis Screen: Does the patient meet any 2 criteria? No. Patient's initial sepsis screen is negative. Does the patient have a suspected source of infection? No. Patient's initial sepsis screen is negative. Risk Assessment: Do you want to hurt yourself or someone else? Patient reports no desire to harm self or others. Onset of symptoms was August 05, 2024. 10:48 Acuity: NELIDA 2 mb9 10:48 Method Of Arrival: Wheelchair mb9 Triage Assessment: 11:01 General: Appears in no apparent distress. Behavior is calm, cooperative. Pain: mb9 Complains of pain in chest Pain does not radiate. Pain currently is 0 out of 10 on a pain scale. Quality of pain is described as pressure. EENT: No signs and/or symptoms were reported regarding the EENT system. Neuro: Matta Agitation-Sedation Scale (RASS): 0 - Alert and Calm Level of Consciousness is awake, alert, obeys commands, Oriented to person, place, time, situation, Appropriate for age. Cardiovascular: Reports chest pain, shortness of breath, Heart tones S1 S2 present Patient's skin is warm and dry. Rhythm is regular. Respiratory: Reports shortness of breath at rest Airway is patent Respiratory effort is even, unlabored, Respiratory pattern is regular, symmetrical, Breath sounds are clear bilaterally. GI: No signs and/or symptoms were reported involving the gastrointestinal system. : No signs and/or symptoms were reported regarding the genitourinary system. Derm: Skin is fragile, is thin, Skin is dry, Skin is pale, Skin temperature is cool. Musculoskeletal: Range of motion: intact in all extremities. Historical: - Allergies: 11:00 Morphine; mb9 - PMHx: 11:00 COPD; Diabetes - NIDDM; Hypothyroidism; Hypertension; mb9 - PSHx: 11:00 Knee replacement; Knee replacement; hysterectomy; Appendectomy; bunionectomy; mb9 Cholecystectomy; Knee replacement; Left rotator cuff repair; - Immunization history:: Adult Immunizations up to date. - Infectious Disease History:: Denies. - Social history:: Smoking status: Patient/guardian denies using tobacco. Screenin:02 [facility] ED Fall Risk Assessment (Adult) History of falling in the last 3 months, mb9 including since admission No falls in past 3 months (0 pts) Confusion or Disorientation No (0 pts) Intoxicated or Sedated No (0 pts) Impaired Gait No (0 pts) Mobility Assist Device Used No (0 pt) Altered Elimination No (0 pt) Score/Fall Risk Level 0 - 2 = Low Risk Oriented to surroundings, Maintained a safe environment, Educated pt \\T\\ family on fall prevention, incl call for assistance when getting out of bed. Abuse screen: Denies threats or abuse. Nutritional screening: No deficits noted. Tuberculosis screening: No symptoms or risk factors identified. Assessment: 11:02 Reassessment: see triage assessment. mb9 12:28 Reassessment: No changes from previously documented assessment. Patient and/or family mb9 updated on plan of care and expected duration. Pain level reassessed. Patient is alert, oriented x 3, equal unlabored respirations, skin warm/dry/pink. 13:49 Reassessment: No changes from previously documented assessment. Patient and/or family mb9 updated on plan of care and expected duration. Pain level reassessed. Patient is alert, oriented x 3, equal unlabored respirations, skin warm/dry/pink. Vital Signs: 10:48 BP 156 / 67; Pulse 76; Resp 16; Temp 98; Pulse Ox 100% on R/A; Weight 90.26 kg; Height mb9 5 ft. 8 in. ; Pain 0/10; 12:27 BP 155 / 63; Pulse 90; Resp 18; Pulse Ox 95% on R/A; mb9 10:48 Body Mass Index 30.26 (90.26 kg, 172.72 cm) mb9 10:48 Pain Scale: Adult mb9 ED Course: 10:43 Patient arrived in ED. mr 10:46 Mague Chi, RN is Primary Nurse. mb9 10:50 EKG done, by ED staff, reviewed by Brennan Ferreira MD. mb9 10:54 Brennan Ferreira MD is Attending Physician. ec2 11:00 Triage completed. mb9 11:00 Arm band placed on. mb9 11:02 Placed in gown. Bed in low position. Call light in reach. Side rails up X 1. Provided mb9 Education on: press call light if needing anything. Client placed on continuous cardiac and pulse oximetry monitoring. NIBP monitoring applied. property assessment monitor on. 11:14 Basic Metabolic Panel Sent. mb9 11:14 CBC with Diff Sent. mb9 11:14 NT PRO-BNP Sent. mb9 11:14 PT-INR Sent. mb9 11:14 Troponin HS Sent. mb9 11:14 Missed attempt(s): 22 gauge in right forearm. Bleeding controlled, band aid applied, mb9 catheter tip intact. 11:58 XRAY Chest (1 view) In Process Unspecified. EDMS 13:18 Cristofer Lopez MD is Referral Physician. ec2 13:48 IV discontinued, intact, bleeding controlled, No redness/swelling at site. Pressure mb9 dressing applied. 13:48 No provider procedures requiring assistance completed. mb9 Administered Medications: No medications were administered Medication: 11:14 VIS not applicable for this client. mb9 Outcome: 13:18 Discharge ordered by . ec2 13:48 Discharged to home via wheelchair, with family, mb9 13:48 Condition: stable 13:48 Discharge instructions given to patient, Instructed on discharge instructions, follow up and referral plans. Demonstrated understanding of instructions, follow-up care, medications, Prescriptions given X 1, 13:49 Patient left the ED. mb9 Signatures: Dispatcher [employer] [facility] Mague Horne, Reg Reg mr ChiMague RN RN mb9 Corral, Edwin, MD MD ec2
[2024-08-05 13:59] VITALS: TEMP 98
[2024-08-05 14:01] VITALS: BP 155/63; O2SAT 95
--- NOTE | 2024-08-06 16:55 | EKG ---
Test Date: 2024-08-05 Test Time: 10:55:37 Certified Lactation Educator: MB MEASUREMENT RESULTS: Intervals: Rate: 81 MI: 154 QRSD: 124 QT: 396 QTc: 460 [place]: P: 68 MI: 154 QRS: -3 T: 47 INTERPRETIVE STATEMENTS: Normal sinus rhythm Right bundle branch block Abnormal ECG Compared to ECG 03/23/2023 15:41:49 No significant changes Electronically Signed On 08-06-24 16:50:49 CDT by Ronny Julio
== END 2024-08-05 13:49 | disposition home or self-care (01) ==
LOC: ER 10:43
DX: R07.9 Chest pain, unspecified (principal); R06.02 Shortness of breath; J44.9 Chronic obstructive pulmonary disease, unspecified; I10 Essential (primary) hypertension
CPT/HCPCS: 36415; 71045; 80048; 83880; 84484; 85025; 85610; 93005